=== PATIENT | female | born 1955 | race Caucasian/White ===

== ENCOUNTER 2023-12-23 15:40 | Outpatient (OUT) | payer MEDICARE, SELFPAY ==
--- NOTE | 2023-12-23 15:54 | XR_ITS ---
The [address] [address] Patient Name: RADHA REED MRN: [id number] date: 1955 Sex: F Assigned Patient Location: [facility] Current Patient Location: [facility] Accession/Order Number: [id number] Exam Date: 12/23/2023 16:05 Report Date: 12/23/2023 16:27 At the request of: ARANZA PICHARDO Procedure: XR knee ALYSSIA 4V EXAMINATION: XR knee ALYSSIA 4V HISTORY: Left Knee Pain COMPARISON: No relevant comparison available. FINDINGS: RIGHT FINDINGS: BONES: No acute fracture or dislocation. Moderate tricompartmental osteoarthropathy with moderate narrowing of the medial joint space SOFT TISSUES: Negative. No visible soft tissue swelling. OTHER: Negative. LEFT FINDINGS: BONES: No acute fracture or dislocation. Moderate tricompartmental osteoarthropathy with moderate narrowing of the medial joint space SOFT TISSUES: Negative. No visible soft tissue swelling. OTHER: Negative. XR/XR knee ALYSSIA 4V IMPRESSION: Moderate bilateral osteoarthritis with moderate medial joint space narrowing Electronically authenticated by: DEMETRIS PATEL Date: 12/23/2023 16:27
== END 2023-12-23 15:41 | disposition home or self-care (01) ==
LOC: RAD 15:45
PROVIDERS: PCP Internal Medicine; Visit Provider Internal Medicine
DX: M25.562 Pain in left knee (principal); M25.561 Pain in right knee; G89.29 Other chronic pain; M17.0 Bilateral primary osteoarthritis of knee
CPT/HCPCS: 73564

== ENCOUNTER 2024-02-23 14:11 | Outpatient (OUT) | payer MEDICARE, OTHER, SELFPAY ==
--- OUTSIDE RECORDS SUMMARY | 2024-02-23 14:22 | XMS_ITS | CCD ---
Author Organization [facility] Care Team Providers Care Wealth Management Director Name Role Phone VICTOR MANUEL, DR COBIAN Consulting Unavailable BALL, DR COBIAN Primary Care Unavailable BALL, DR COBIAN Admitting Unavailable BALL, DR COBIAN Attending Unavailable BALL, DR COBIAN Consulting Unavailable BALL, DR COBIAN Primary Care Unavailable BALL, DR COBIAN Admitting Unavailable BALL, DR COBIAN Attending Unavailable BALL, DR COBIAN Consulting Unavailable BALL, DR COBIAN Primary Care Unavailable BALL, DR COBIAN Admitting Unavailable BALL, DR COBIAN Attending Unavailable WEST, DR DEMETRIS Patel Consulting Unavailable Victor Manuel, Peter Unavailable Peter Rush DO Primary Care Provider YOLANDA STAFFORD Attending Unavailabl e VICTOR MANUEL, PETER [facility] Primary Care Unavailable YOLANDA STAFFORD Referring Unavailabl e VICTOR MANUEL, PETER [facility] Unavailable YOLANDA STAFFORD Referring Unavailabl e VICTOR MANUEL, PETER [facility] Primary Care Unavailable PETER RUSH Primary Care Physician [phone] Cristian CINTRON Attending Unavailable VICTOR MANUEL, PETER Referring Unavailable Allergies Allergy Classification Reported Allergen(s) Allergy Type Date of Onset Reaction(s) Facility (4 sources) Morphine; Translations: [MORPHINE] Drug Allergy 3 [facility] Repository (6 sources) Morphine; Translations: [morphine] Drug Allergy 3 Other: See Comments, Patient reported problems (finding) [facility] (3 sources) Latex; Translations: [LATEX] Drug Allergy 3 [facility] (1 source) patient allergy list reviewed by nurse or physicia Propensity to adverse reactions 8 Comment:Done Comr.se Other Medications Current Medications Medication Drug Class(es) Dates Sig (Normalized) Sig (Original) celecoxib 200 mg oral capsule (1 source) Nonsteroidal Anti-inflammatory Drug Start: 01-27-2024 take 1 capsule by mouth once daily celecoxib 200 mg Cap 200 mg = 1 cap(s), Oral, Daily, Refills(s) 0 Start Date: 01/27/24 Status: Ordered estradiol 0.1 mg/ml vaginal cream (7 sources) Estrogen Start: 01-06-2024 estradiol 0.1 mg/g Vag Crm 1 gm, Vaginal, MonFri, Refill(s) 0 Start Date: 01/06/24 Status: Ordered Start: 11-24-2023 End: 11-24-2023 Estradiol Active 1 GM VAGINA L Twice a Week 42.5 90 November 24, 2023 5:23pm Start: 08-31-2022 Estradiol 0.1 MG/GM 1 gram Vaginal twice weekly for 90 days Aug, Active Start: 04-11-2021 Estradiol 0.1 MG/GM 1 gram Vaginal twice weekly for 90 days Aug, Active Comment on above: Use 1 g vaginally tw o times a week. estrogens, conjugated (prison) 0.625 mg/ml vaginal cream (3 sources) Estrogen Premarin 0.625 M G/GM as directed Vaginal twice weekly for 30 days Active Premarin 0.625 M G/GM as directed Vaginal twice weekly for 30 days Active omeprazole 40 mg delayed release oral capsule (4 sources) Proton Pump Inhibitor Start: 01-06-2024 take 1 capsule by mouth once daily omeprazole 40 mg Cap-DR 40 mg = 1 cap(s), Oral, Daily, Refills(s) 0 Start Date: 01/06/24 Status: Ordered Start: 12-23-2023 take 40 mg by mouth once daily Omeprazole Active 40 MG PO Daily December 23, 2023 12:00am Start: 02-26-2013 take 1 capsule by [facility] once daily omeprazole (PRILOSEC) 10 mg capsule Indications: Mid back pain , Lumbar degenerative disc disease , Numbness and tingling in right hand , Numbness of foot , Osteoarthritis Take 1 capsule by mouth once daily. 0 02/26/2013 Active Comment on above: Take 1 capsule by [facility] once daily. polyethylene glycol 3350 513053 mg / potassium chloride 2970 mg / sodium bicarbonate 6740 mg / sodium chloride 5860 mg / sodium sulfate 57300 mg powder for oral solution (1 source) Osmotic Laxative Start: 09-25-2022 End: 09-25-2022 peg 3350-Electrolytes (GOLYTELY) 236-22.74-6.74 -5.86 gram suspension Indications: Polyp of colon, unspecified part of colon, unspecified type , Liver hemangioma Take 4,000 mL by mouth one time only for 1 dose. Refer to printed prep instructions from your provider. 4000 mL 0 09/25/2022 09/25/2022 Active Comment on above: Take 4,000 mL by kira th one time only for 1 dose. Refer to printed prep instructions from your provider. Completed/Discontinued Medications Medication Drug Class(es) Dates Sig (Normalized) Sig (Original) ascorbic acid 1000 mg oral tablet (2 sources) Vitamin C Start: 02-26-2013 take 1 tablet by mouth once daily Ascorbic Acid (VITAMIN C) 1,000 mg tablet Indications: Mid back pain , Lumbar degenerative disc disease , Numbness and tingling in right hand , Numbness of foot , Osteoarthritis Take 1 tablet by mouth once daily. 0 02/26/2013 Active Comment on above: Take 1 tablet by kira th once daily. azithromycin 250 mg oral tablet (3 sources) Macrolide Antimicrobial Start: 08-06-2022 Azithromycin 250 MG as directed Orally daily for 5 days Jul, Not-Taking/PRN Bifidobacterium Infantis (2 sources) Bifidobacterium infantis (ALIGN ORAL) Take by mouth. 0 Active Comment on above: Take by mouth. biotin 5 mg disintegrating oral tablet (2 sources) biotin 5,000 mcg ODT Take by mouth. 0 Active Comment on above: Take by mouth. cholecalciferol 0.05 mg oral tablet (2 sources) Vitamin D take 1 tablet by mouth once daily cholecalciferol (VITAMIN D3) 50 mcg (2,000 unit) tablet Take 2,000 Units by mouth once daily. 0 Active Comment on above: Take 2,000 Units by mouth once daily. ciprofloxacin 500 mg oral tablet (6 sources) Quinolone Antimicrobial Start: 09-12-2012 take 1 tablet by mouth every twelve hours Cipro 500 MG 1 tablet Orally every 12 hrs for 7 day(s) Aug, Not-Taking/PRN take 2 drop(s) into the eye(s) every four hours as needed Ciprofloxacin HCl 0.3 % 2 drops Ophthalm ic every 4 hours while awake for 7 days Not-Taking/PRN take 2 drop(s) into the eye(s) every four hours Ciprofloxacin HCl 0.3 % 2 drops Ophthalm ic every 4 hours while awake for 7 days Not-Taking cranberry conc-ascorbic acid 4,200-20 mg cap (2 sources) take 2 tablets by mouth once daily cranberry conc-ascorbic acid 4,200-20 mg cap Take 2 tablets by mouth once daily. 0 Active Comment on above: Take 2 tablets by mo ut once daily. CYANOCOBALAMIN, VITAMIN B-12, (VITAMIN B-12 ORAL) (2 sources) Start: 7 CYANOCOBALAMIN, VITAMIN B-12, (VITAMIN B-12 ORAL) Take by mouth once daily. 0 12/11/2016 Active Comment on above: Take by mouth once d aily. KRILL OIL ORAL (2 sources) take 350 mg by mouth once daily KRILL OIL ORAL Take 350 mg by mouth once daily. 0 Active Comment on above: Take 350 mg by mouth once daily. MEDICATION, NON-DATABASE (2 sources) MEDICATION, NON-DATABASE Collagen powder daily 0 Active Comment on above: Collagen powder juan antonio y MULTIVITAMIN/IRON/FOLI C ACID (CENTRUM WOMEN ORAL) (2 sources) Start: 7 MULTIVITAMIN/IRON/FOL IC ACID (CENTRUM WOMEN ORAL) Take by mouth once daily. 0 12/11/2016 Active Comment on above: Take by mouth once d aily. Problems Active Problems Problem Classification Problem Date Documented Da te Episodic/Chronic Calculus of urinary tract (7 sources) Personal history of urinary calculi; Translations: [History of calculus of kidney] Onset: 3 04-21-2013 Episodic Esophageal disorders (5 sources) Gastroesophageal reflux disease; Translations: [Gastro-esophageal reflux disease without esophagitis] Onset: 7 07-16-2016 Chronic Genitourinary symptoms and ill-defined conditions (11 sources) Dysuria; Translations: [Dysuria] Onset: 2 Episodic Immunizations and screening for infectious disease (1 source) Vaccination given; Translations: [Encounter for immunization] Episodic Intestinal infection (4 sources) Salmonella gastroenteritis; Translations: [Salmonella enteritis] Episodic Joint disorders and dislocations; trauma-related (1 source) Current tear of medial cartilage AND/OR meniscus of knee; Translations: [Other tear of medial meniscus, current injury, right knee, initial encounter] Episodic Menopausal disorders (5 sources) Atrophic vaginitis; Translations: [Postmenopausal atrophic vaginitis] Chronic Osteoarthritis (2 sources) Inflammation of joint of foot; Translations: [Primary osteoarthritis, unspecified ankle and foot] Onset: 7 07-03-2016 Chronic Other and unspecified benign neoplasm (7 sources) Hemangioma of intra-abdominal structures; Translations: [Cavernous hemangioma of liver] Onset: 3 Episodic Other and unspecified benign neoplasm (2 sources) Polyp of colon; Translations: [Polyp of colon] Episodic Other and unspecified benign neoplasm (5 sources) Hemangioma of liver; Translations: [Hemangioma of intra-abdominal structures] Onset: 4 Episodic Other and unspecified benign neoplasm (1 source) Polyp of colon; Translations: [Polyp of colon, unspecified part of colon, unspecified type] Onset: 3 Episodic Other and unspecified benign neoplasm (1 source) Hemangioma of intra-abdominal structure; Translations: [Hemangioma of intra-abdominal structures] Episodic Other gastrointestinal disorders (4 sources) Diarrhea; Translations: [Diarrhea, unspecified] Episodic Other non-traumatic joint disorders (1 source) Arthralgia of the lower leg; Translations: [Pain in right knee] Episodic Other non-traumatic joint disorders (2 sources) Pain in left knee; Translations: [Left knee pain] 12-23-2023 Episodic Other non-traumatic joint disorders (1 source) Pain in right knee; Translations: [Pain in joint, lower leg] 12-23-2023 Episodic Other nutritional; endocrine; and metabolic disorders (5 sources) Body mass index 30+ - obesity; Translations: [Obesity, unspecified] Onset: 6 01-27-2024 Chronic Other nutritional; endocrine; and metabolic disorders (2 sources) Obesity, unspecified; Translations: [Obesity, unspecified] Chronic Other nutritional; endocrine; and metabolic disorders (2 sources) Obese class I; Translations: [Body mass index 32.0-32.9, adult] Onset: 6 Chronic Other nutritional; endocrine; and metabolic disorders (2 sources) Obesity; Translations: [Obesity, unspecified] 12-23-2023 Chronic Other nutritional; endocrine; and metabolic disorders (1 source) Simple obesity ; Translations: [Other obesity due to excess calories] Onset: 6 Chronic Other nutritional; endocrine; and metabolic disorders (1 source) Obese class III 01-06-2024 Chronic Other screening for suspected conditions (not mental disorders or infectious disease) (4 sources) Patient encounter status; Translations: [Encounter for screening for malignant neoplasm of colon] Onset: 4 12-23-2023 Episodic Residual codes; unclassified (4 sources) Menopause present; Translations: [Asymptomatic menopausal state] 12-21-2023 Episodic Residual codes; unclassified (3 sources) Asymptomatic menopausal state; Translations: [Symptomatic menopausal or female climacteric states] Episodic Residual codes; unclassified (1 source) Procedure and treatment not carried out because of patient's decision for unspecified reasons Episodic Spondylosis; intervertebral disc disorders; other back problems (9 sources) Dorsalgia, unspecified; Translations: [Spinal stenosis of lumbar region] Onset: 4 Episodic Sprains and strains (1 source) Sprain of medial collateral ligament of knee; Translations: [Sprain of medial collateral ligament of unspecified knee, initial encounter] Episodic Unclassified (1 source) Patient encounter status 01-27-2024 Urinary tract infections (5 sources) Urinary tract infectious disease; Translations: [Urinary tract infection] Onset: 3 04-19-2013 Episodic Past or Other Problems Problem Classification Problem Date Documented Da te Episodic/Chronic Abdominal pain (2 sources) Abdominal pain; Translations: [Unspecified abdominal pain] Onset: 07-15-2013 07-15-2013 Episodic Acute bronchitis (1 source) Acute bronchitis; Translations: [Acute bronchitis, unspecified] Onset: 01-11-2015 Episodic Diseases of mouth; excluding dental (1 source) Glossitis; Translations: [Glossitis] Onset: 01-11-2015 Episodic Other diseases of bladder and urethra (2 sources) Stenosis of urinary meatus; 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] Onset: 04-19-2013 04-19-2013 Episodic Other diseases of kidney and ureters (2 sources) Bilateral hydronephrosis ; Translations: [Unspecified hydronephrosis] Onset: 04-07-2013 04-07-2013 Episodic Other ear and sense organ disorders (1 source) Impacted cerumen; Translations: [Impacted cerumen] Onset: 12-19-2017 Resolved: 04-04-2020 Episodic Other gastrointestinal disorders (4 sources) Diarrhea, unspecified; Translations: [DIARRHEA UNSPECIFIED] Onset: 02-20-2021 Episodic Other upper respiratory infections (2 sources) Acute maxillary sinusitis; Translations: [Acute maxillary sinusitis, unspecified] Onset: 01-11-2015 Episodic Otitis media and related conditions (1 source) Eustachian tube salpingitis; Translations: [Unspecified Eustachian salpingitis, bilateral] Onset: 12-19-2017 Episodic Results Test Name Value Interpretation Reference Range Facil ity CBC W Auto Differential pane l (Bld)on 09-26-2022 Basophils (Bld) [#/Vol] 0.04 10*3/uL Normal <0.11 [facility] Comment on above: Order Comment: Speci gentry Type: BLOOD SPECIMEN Ordering Facility: [facility] Address: [address] [address] Performed By: #### 5 7021-8 #### [facility] CLIA [id number] [address] [place] [address] [place] Basophils/100 WBC (Bld) 0.7 % Normal [facility] Comment on above: Order Comment: Speci gentry Type: BLOOD SPECIMEN Ordering Facility: [facility] Address: [address] [place] [address] Performed By: #### 5 7021-8 #### [facility] CLIA [id number] [place] [address] [place] Differential cell count method Nom (Bld) Auto Normal [facility] Comment on above: Order Comment: Speci men Type: BLOOD SPECIMEN Ordering Facility: [facility] Address: [address] [address] Performed By: #### 5 7021-8 #### [facility] CLIA [id number] [place] [address] [place] Eosinophils (Bld) [#/Vol] 0.04 10*3/uL Normal <0.46 [facility] Comment on above: Order Comment: Speci men Type: BLOOD SPECIMEN Ordering Facility: [facility] Address: [address] [place], [place] [address] Performed By: #### 5 7021-8 #### [facility] IA [id number] [address] [place] [address] [place] Eosinophils/100 WBC (Bld) 0.7 % Normal [facility] Comment on above: Order Comment: Speci men Type: BLOOD SPECIMEN Ordering Facility: [facility] Address: [address] [address] Performed By: #### 5 7021-8 #### [facility] IA [id number] [address] [place] [address] [place] Erythrocyte distribution width (RBC) [Ratio] 12.2 % Normal 11.5-15.0 [facility] Comment on above: Order Comment: Speci men Type: BLOOD SPECIMEN Ordering Facility: [facility] Address: [address] [address] Performed By: #### 5 7021-8 #### [facility] IA [id number] [address] [place] [address] [place] Hematocrit (Bld) [Volume fraction] 43.6 % Normal 36.0-46.0 [facility] Comment on above: Order Comment: Speci men Type: BLOOD SPECIMEN Ordering Facility: [facility] Address: [address] [address] Performed By: #### 5 7021-8 #### [facility] IA [id number] [address] [place] [address] [place] Hemoglobin (Bld) [Mass/Vol] 14.4 g/dL Normal 11.5-15.5 [facility] Comment on above: Order Comment: Speci men Type: BLOOD SPECIMEN Ordering Facility: [facility] Address: [address] [address] Performed By: #### 5 7021-8 #### [facility] IA [id number] [place] [address] [place] Immature granulocytes (Bld) [#/Vol] 10*3/uL Normal <0.10 [facility] Comment on above: Order Comment: Speci men Type: BLOOD SPECIMEN Ordering Facility: [facility] Address: [address] [address] Performed By: #### 5 7021-8 #### [facility] CLIA [id number] [address] [place] [address] [place] Immature granulocytes/100 WBC (Bld) 0.3 % Normal [facility] Comment on above: Order Comment: Speci men Type: BLOOD SPECIMEN Ordering Facility: [facility] Address: [address] [address] Performed By: #### 5 7021-8 #### [facility] IA [id number] [address] [place] [address] [place] Lymphocytes (Bld) [#/Vol] 1.48 10*3/uL Normal 1.00-4.00 [facility] Comment on above: Order Comment: Speci men Type: BLOOD SPECIMEN Ordering Facility: [facility] Address: [address] [address] Performed By: #### 5 7021-8 #### [facility] IA [id number] [address] [place] [address] [place] Lymphocytes/100 WBC (Bld) 25.8 % Normal [facility] Comment on above: Order Comment: Speci men Type: BLOOD SPECIMEN Ordering Facility: [facility] Address: [address] [address] Performed By: #### 5 7021-8 #### [facility] IA [id number] [address] [place] [address] [place] MCH (RBC) [Entitic mass] 30.5 pg Normal 26.0-34.0 [facility] Comment on above: Order Comment: Speci men Type: BLOOD SPECIMEN Ordering Facility: [facility] Address: [address] [address] Performed By: #### 5 7021-8 #### [facility] IA [id number] [place] [address] [place] MCHC (RBC) [Mass/Vol] 33.0 g/dL Normal 30.5-36.0 [facility] Comment on above: Order Comment: Speci men Type: BLOOD SPECIMEN Ordering Facility: [facility] Address: [address] [address] Performed By: #### 5 7021-8 #### [facility] CLIA [id number] [address] [place] [address] [place] MCV (RBC) [Entitic vol] 92.4 fL Normal 80.0-100.0 [facility] Comment on above: Order Comment: Speci men Type: BLOOD SPECIMEN Ordering Facility: [facility] Address: [address] [address] Performed By: #### 5 7021-8 #### [facility] CLIA [id number] [address] [place] [address] [place] Monocytes (Bld) [#/Vol] 0.55 10*3/uL Normal <0.87 [facility] Comment on above: Order Comment: Speci men Type: BLOOD SPECIMEN Ordering Facility: [facility] Address: [address] [address] Performed By: #### 5 7021-8 #### [facility] CLIA [id number] [place] [address] [place] Monocytes/100 WBC (Bld) 9.6 % Normal [facility] Comment on above: Order Comment: Speci men Type: BLOOD SPECIMEN Ordering Facility: [facility] Address: [address] Performed By: #### 5 7021-8 #### [facility] CLIA [id number] [address] [place] [address] [place] Neutrophils (Bld) [#/Vol] 3.61 10*3/uL Normal 1.45-7.50 [facility] Comment on above: Order Comment: Speci men Type: BLOOD SPECIMEN Ordering Facility: [facility] Address: [address] [address] Performed By: #### 5 7021-8 #### [facility] IA [id number] [address] [place] [address] [place] Neutrophils/100 WBC (Bld) 62.9 % Normal [facility] Comment on above: Order Comment: Speci men Type: BLOOD SPECIMEN Ordering Facility: [facility] Address: [address] [address] Performed By: #### 5 7021-8 #### [facility] IA [id number] [address] [place] [address] [place] Nucleated RBC (Bld) [#/Vol] 10*3/uL Normal <0.01 [facility] Comment on above: Order Comment: Speci men Type: BLOOD SPECIMEN Ordering Facility: [facility] Address: [address] [address] Performed By: #### 5 7021-8 #### [facility] IA [id number] [address] [place] [address] [place] Nucleated RBC/100 WBC (Bld) [Ratio] 0.0 /100 WBC Normal [facility] Comment on above: Order Comment: Speci men Type: BLOOD SPECIMEN Ordering Facility: [facility] Address: [address] [address] Performed By: #### 5 7021-8 #### [facility] IA [id number] [address] [place] [address] [place] Platelet mean volume (Bld) [Entitic vol] 9.2 fL Normal 9.0-12.7 [facility] Comment on above: Order Comment: Speci men Type: BLOOD SPECIMEN Ordering Facility: [facility] Address: [address] [address] Performed By: #### 5 7021-8 #### [facility] IA [id number] [place] [address] [place] Platelets (Bld) [#/Vol] 267 10*3/uL Normal 150-400 [facility] Comment on above: Order Comment: Speci men Type: BLOOD SPECIMEN Ordering Facility: [facility] Address: [address] Performed By: #### 5 7021-8 #### [facility] IA [id number] [address] [place] [address] [facility] RBC (Bld) [#/Vol] 4.72 10*6/uL Normal 3.90-5.20 [facility] Comment on above: Order Comment: Speci men Type: BLOOD SPECIMEN Ordering Facility: [facility] Address: [address] Performed By: #### 5 7021-8 #### [facility] IA [id number] [place] WBC (Bld) [#/Vol] 5.74 10*3/uL Normal 3.70-11.00 [facility] Comment on above: Order Comment: Speci men Type: BLOOD SPECIMEN Ordering Facility: [facility] Address: [address] Performed By: #### 5 7021-8 #### [facility] IA [id number] [address] [place], [place] [id number] [place] [address] [place] Comprehensive metabolic 2000 panelon 09-26-2022 Albumin [Mass/Vol] 4.6 g/dL Normal 3.9-4.9 [facility] Comment on above: Order Comment: Speci men Type: BLOOD SPECIMEN Ordering Facility: [facility] Address: [address] Performed By: #### 2 4323-8 #### [facility] IA [id number] [address] [place] [address] [place] ALP [Catalytic activity/Vol] 89 U/L Normal 34-123 [facility] Comment on above: Order Comment: Speci men Type: BLOOD SPECIMEN Ordering Facility: [facility] Address: [address] Performed By: #### 2 4323-8 #### [facility] IA [id number] [address] [place] [address] [place] ALT [Catalytic activity/Vol] 28 U/L Normal 7-38 [facility] Comment on above: Order Comment: Speci men Type: BLOOD SPECIMEN Ordering Facility: [facility] Address: [address] [address] Performed By: #### 2 4323-8 #### [facility] CLIA [id number] [address] [place] [address] [place] Anion gap [Moles/Vol] 9 mmol/L Normal 9-18 [facility] Comment on above: Order Comment: Speci men Type: BLOOD SPECIMEN Ordering Facility: [facility] Address: [address] [address] Performed By: #### 2 4323-8 #### [facility] CLIA [id number] [address] [place] [address] [place] AST [Catalytic activity/Vol] 21 U/L Normal 13-35 [facility] Comment on above: Order Comment: Speci men Type: BLOOD SPECIMEN Ordering Facility: [facility] Address: [address] [address] Performed By: #### 2 4323-8 #### [facility] CLIA [id number] [place] [address] [place] Bilirubin [Mass/Vol] 0.5 mg/dL Normal 0.2-1.3 [facility] Comment on above: Order Comment: Speci men Type: BLOOD SPECIMEN Ordering Facility: [facility] Address: [address] Performed By: #### 2 4323-8 #### [facility] CLIA [id number] [address] [place] [address] [place] Calcium [Mass/Vol] 9.7 mg/dL Normal 8.5-10.2 [facility] Comment on above: Order Comment: Speci men Type: BLOOD SPECIMEN Ordering Facility: [facility] Address: [address] [address] Performed By: #### 2 4323-8 #### [facility] CLIA [id number] [place] [address] [place] Chloride [Moles/Vol] 104 mmol/L Normal 97-105 [facility] Comment on above: Order Comment: Speci men Type: BLOOD SPECIMEN Ordering Facility: [facility] Address: [address] [address] Performed By: #### 2 4323-8 #### [facility] CLIA [id number] [place] [address] [place] CO2 [Moles/Vol] 29 mmol/L Normal 22-30 [facility] Comment on above: Order Comment: Speci men Type: BLOOD SPECIMEN Ordering Facility: [facility] Address: [address] [address] Performed By: #### 2 4323-8 #### [facility] CLIA [id number] [place] Creatinine [Mass/Vol] 0.68 mg/dL Normal 0.58-0.96 [facility] Comment on above: Order Comment: Speci men Type: BLOOD SPECIMEN Ordering Facility: [facility] Address: [address] [address] Performed By: #### 2 4323-8 #### [facility] CLIA [id number] [place] ESTIMATED GLOMERULAR FILTRATION RATE 97 mL/min/1.73m??? Normal >=60 [facility] Comment on above: Order Comment: Speci men Type: BLOOD SPECIMEN Ordering Facility: [facility] Address: [address] [address] Result Comment: Barbara mated Glomerular Filtration Rate (eGFR) is calculated using the 2020 CKD-EPI creatinine equation. This equation utilizes serum creatinine, sex, and age as parameters. The creatinine assay has traceable calibration to isotope dilution-mass spectrometry. Refer to KDIGO guidelines for clinical interpretation. In patients with unstable renal function, e.g. those with acute kidney injury, the eGFR may not accurately reflect actual GFR. Performed By: #### 2 4323-8 #### [facility] [place] [id number] [address] [place] [address] [place] Glucose [Mass/Vol] 98 mg/dL Normal 74-99 [facility] Comment on above: Order Comment: Vineet rinaldi Type: BLOOD SPECIMEN Ordering Facility: [facility] Address: [address] [place] [address] Result Comment: The [place] Diabetes Association (ADA) provides guidance for cutoff values for fasting glucose and random glucose. The ADA defines fasting as no caloric intake for at least 8 hours. Fasting plasma glucose results between 100 to 125 mg/dL indicate increased risk for diabetes (prediabetes). Fasting plasma glucose results greater than or equal to 126 mg/dL meet the criteria for diagnosis of diabetes. In the absence of unequivocal hyperglycemia, results should be confirmed by repeat testing. In a patient with classic symptoms of hyperglycemia or hyperglycemic crisis, random plasma glucose results greater than or equal to 200 mg/dL meet the criteria for diagnosis of diabetes. Reference: Standards of Medical Care in Diabetes 2016, [place] Diabetes Association. Diabetes Care. 2016.39(Suppl 1). Performed By: #### 2 4323-8 #### [facility] IA [id number] [address] [place] [address] [place] Potassium [Moles/Vol] 4.6 mmol/L Normal 3.7-5.1 [facility] Comment on above: Order Comment: Vineet rinaldi Type: BLOOD SPECIMEN Ordering Facility: [facility] Address: [address] [place] [address] Performed By: #### 2 4323-8 #### [facility] IA [id number] [address] [place] [address] [place] Protein [Mass/Vol] 7.4 g/dL Normal 6.3-8.0 [facility] Comment on above: Order Comment: Vineet rinaldi Type: BLOOD SPECIMEN Ordering Facility: [facility] Address: [address] [place] [address] Performed By: #### 2 4323-8 #### [facility] IA [id number] [address] [place] [address] [place] Sodium [Moles/Vol] 142 mmol/L Normal 136-144 [facility] Comment on above: Order Comment: Speci men Type: BLOOD SPECIMEN Ordering Facility: [facility] Address: [place] [address] Performed By: #### 2 4323-8 #### [facility] CLIA [id number] [address] [place] [address] [facility] Urea nitrogen [Mass/Vol] 17 mg/dL Normal 7-21 [facility] Comment on above: Order Comment: Speci men Type: BLOOD SPECIMEN Ordering Facility: [facility] Address: [place] [address] Performed By: #### 2 4323-8 #### [facility] CLIA [id number] [address] [facility] [place] [address] [facility] No Panel Informationon 09-26 [facility] US ABD RIGHT UPPER QUADRANTo n 09-26-2022 US ABD RIGHT UPPER QUADRANT * * *Final Report* * * DATE OF EXAM: Sep 26 2022 1:18PM U 1032 - US ABD RIGHT UPPER QUADRANT / PROCEDURE REASON: multiple diagnoses * * * * Physician Interpretation * * * * EXAMINATION: RIGHT UPPER QUADRANT AND SPLEEN ULTRASOUND CLINICAL HISTORY: Hemangiomas TECHNIQUE: Sonography of the right upper quadrant was performed. Images were obtained and stored in a permanent archive. MQ: URUQ_2 COMPARISON: 05/31/2015 RESULT: Pancreas: Obscured by bowel gas Liver: Echotexture: Normal, homogeneous. Echogenicity: Increased Surface contour: Smooth Lesions: Heterogeneous appearance of the hepatic parenchyma with likely mass lesion in the right lobe measuring 2.1 x 2.1 x 2.1 cm. This is likely stable. A second mass measuring 1.9 cm is also suggested. Biliary: No intrahepatic biliary duct dilation. CBD: 0.7 cm at the hilum. Gallbladder: Prior cholecystectomy Right Kidney: No hydronephrosis. Ascites: None. The left kidney measures 11.7 cm in length. The spleen measures 10.7 cm. IMPRESSION: Heterogeneous appearance of the liver with hepatic steatosis and underlying mass lesions noted. Based on relative stability since 2015 is are likely benign and could represent the previously described hemangiomas. Coat Joiner: ERIKA Transcribe Date/Time: Oct 03 2022 6:03A Dictated by : NAS DENSON MD This examination was interpreted and the report reviewed and electronically signed by: NAS DENSON MD on Oct 03 2022 6:08AM EST [id number] N [facility] US ABD SPLEEN -NBon 09-27-19 US ABD SPLEEN -NB * * *Final Report* * * DATE OF EXAM: Sep 26 2022 1:18PM U 1232 - US ABD SPLEEN -NB / PROCEDURE REASON: multiple diagnoses * * * * Physician Interpretation * * * * EXAMINATION: RIGHT UPPER QUADRANT AND SPLEEN ULTRASOUND CLINICAL HISTORY: Hemangiomas TECHNIQUE: Sonography of the right upper quadrant was performed. Images were obtained and stored in a permanent archive. MQ: URUQ_2 COMPARISON: 05/31/2015 RESULT: Pancreas: Obscured by bowel gas Liver: Echotexture: Normal, homogeneous. Echogenicity: Increased Surface contour: Smooth Lesions: Heterogeneous appearance of the hepatic parenchyma with likely mass lesion in the right lobe measuring 2.1 x 2.1 x 2.1 cm. This is likely stable. A second mass measuring 1.9 cm is also suggested. Biliary: No intrahepatic biliary duct dilation. CBD: 0.7 cm at the hilum. Gallbladder: Prior cholecystectomy Right Kidney: No hydronephrosis. Ascites: None. The left kidney measures 11.7 cm in length. The spleen measures 10.7 cm. IMPRESSION: Heterogeneous appearance of the liver with hepatic steatosis and underlying mass lesions noted. Based on relative stability since 2015 is are likely benign and could represent the previously described hemangiomas. Coat Joiner: [facility] Transcribe Date/Time: Oct 03 2022 6:03A Dictated by : NAS DENSON MD This examination was interpreted and the report reviewed and electronically signed by: NAS DENSON MD on Oct 03 2022 6:08AM EST [id number] N [facility] CNOVon 09-25-2022 CNOV Office Visit (GASTAV ) BRIANNABETTINA ([id number]) 1955 F Date Time Provider Department 09/25/22 1:30 PM YOLANDA STAFFORD During your visit today, we recorded the following information about you: Weight Height 100.7 kg 1.676 m Yolanda Ta MD 09/25/2022 2:21 PM [facility] Rush for liver lesions This is a 67 yo female s/p laparoscopic left lateral segmentectomy 08/24/2013 for symptomatic liver hemangioma. MRI 04/2013: 1. 5.7 x 7.1 cm partially exophytic lesion arising from superior, lateral aspect of segment I (series 11 image 48) 2. 2.5 x 3.4 cm lesion in segment VII (series 11 image 39) 3. 1.1 x 1.4 cm lesion in segment V series 11 image 74) was discussed at tumor board 06/2013 : 58-year-old female with abdominal bloating, discomfort and right upper quadrant pain. MRI from 05/03/13 was reviewed, with 3 hemangiomas, the largest one being exophytic, measuring 5.7 cm, arising from segment I, and compressing the stomach. PLAN: Resection. she had RUQ pain at that time she did have 3 liver hemangiomas , so the 2 others remain behind and she is wondering whether she should remove them no other sx PAST SURGICAL HISTORY Procedure Laterality Date CHOLECYSTECTOMY EXCISION HEPATIC HEMANGIOMA HYSTERECTOMY HX PAST SURGICAL HISTORY OF 05/03/2015 lumbar laminectomy PAST SURGICAL HISTORY OF Bilateral foot surgery (neuroma removed from left foot and high arch correction from right foot) GENERAL REVIEW OF SYSTEMS: GENERAL: No unexplained weight changes or fevers. HEENT: Negative for severe headaches, negative for changes in hearing or vision. NECK: Negative for lumps, masses or pain. RESPIRATORY: Negative for coughing, wheezing or significant dyspnea. CARDIOVASCULAR: Negative for chest pain or heart palpitations. GASTROINTESTINAL: Negative for rectal bleeding or black tarry stools. GENITOURINARY: Negative for dysuria or urinary incontinence. MUSCULOSKELETAL: Negative for unexplained joint pains, dislocations or fractures. NEUROLOGIC: Negative for unexplained weakness or vertigo. SKIN: Negative for new lesions or rashes. ENDOCRINE: Negative for cold or heat intolerance . PAST MEDICAL HISTORY Diagnosis Date Back pain GERD (gastroesophageal reflux disease) Nephrolithiasis Personal history of unspecified urinary disorder UTI (urinary tract infection) o/e: Ht 167.6 cm (5' 6 ) Wt 100.7 kg (222 lb) BMI 35.83 kg/m? General: well appearing no distress HEENT negative no icterus Lungs CTA jomar COR rrm- Abdomen benign she had a CT abd 03/2022:w and wo C dome lesion 2.5cm and r lobe 2.0 cm plan liver hemangiomas sp resection of one in 2013 the oher 2 appear stable and not causing issues will obtain lLFT today and liver US needs a colonoscopy, ordered to be done by me Thank you for your referral. Please feel free to contact me if I can be of further assistance to you Sincerely MD Yolanda Walters MD cc dr Victor Manuel Ta MD 09/25/2022 2:17 PM Addendum Nice to see you today Bettina: Will obtain labs today liver US colonoscopy with me next available Bowel Preparation Instructions for: Golytely, Nulytely, Trilyte or Colyte (polyethylene glycol 3350 and electrolytes) IF YOU DO NOT FOLLOW THESE DIRECTIONS, YOUR COLONOSCOPY WILL BE CANCELLED. Kerr Instructions: Your bowel must be empty so that your doctor can clearly view your colon. Follow all of the instructions in this handout EXACTLY as they are written. Do NOT eat any solid food the ENTIRE day before your colonoscopy. Drink only clear liquids. Buy your bowel preparation at least 5 days before your colonoscopy. TRANSPORTATION on the Day of Your Exam A responsible person MUST be present with you at Check In prior to your colonoscopy and REMAIN in the endoscopy area until you are discharged. You are NOT ALLOWED to drive, take a taxi or bus, or leave the Endoscopy Center ALONE. If you do not have a responsible entry level truck driver (family member or friend) with you to take you home, your exam cannot be done with sedation and will be cancelled. Please bring a list of all of your current medications, including any Over-the Counter medications with you. Medications If you take insulin, diabetic medications or blood thinners such as Coumadin (warfarin), Plavix (clopidogrel), Ticlid (ticlopidine hydrochloride), Agrylin (anagrelide), Xarelto (Rivaroxaban), Pradaxa (Dabigatran), Eliquis (Apixaban), and Effient (Prasugrel). You MUST call the doctors who orders those medicines for instructions on altering the dosage before your colonoscopy. All other medications should be taken the day of the exam with a sip of water including ASPIRIN. Five (5) Days Before Your Colonoscopy Do NOT take medicines that stop diarrhea - such as Imodium, Ka (more content not included)... Normal [facility] HISTORY PHYSICALon HISTORY PHYSICAL HNO ID: [id number] Author: Yolanda Gutierrez MD Service: ? Author Type: Physician Type: HANDP Filed: 09/25/2022 2:21 PM Note Text: Hepatology [facility] HPI consult by Dr Rush for liver lesions This is a 67 yo female s/p laparoscopic left lateral segmentectomy 08/24/2013 for symptomatic liver hemangioma. MRI 04/2013: 1. 5.7 x 7.1 cm partially exophytic lesion arising from superior, lateral aspect of segment I (series 11 image 48) 2. 2.5 x 3.4 cm lesion in segment VII (series 11 image 39) 3. 1.1 x 1.4 cm lesion in segment V series 11 image 74) was discussed at tumor board 06/2013 : 58-year-old female with abdominal bloating, discomfort and right upper quadrant pain. MRI from 05/03/13 was reviewed, with 3 hemangiomas, the largest one being exophytic, measuring 5.7 cm, arising from segment I, and compressing the stomach. PLAN: Resection. she had RUQ pain at that time she did have 3 liver hemangiomas , so the 2 others remain behind and she is wondering whether she should remove them no other sx PAST SURGICAL HISTORY Procedure Laterality Date CHOLECYSTECTOMY EXCISION HEPATIC HEMANGIOMA HYSTERECTOMY HX PAST SURGICAL HISTORY OF 05/03/2015 lumbar laminectomy PAST SURGICAL HISTORY OF Bilateral foot surgery (neuroma removed from left foot and high arch correction from right foot) GENERAL REVIEW OF SYSTEMS: GENERAL: No unexplained weight changes or fevers. HEENT: Negative for severe headaches, negative for changes in hearing or vision. NECK: Negative for lumps, masses or pain. RESPIRATORY: Negative for coughing, wheezing or significant dyspnea. CARDIOVASCULAR: Negative for chest pain or heart palpitations. GASTROINTESTINAL: Negative for rectal bleeding or black tarry stools. GENITOURINARY: Negative for dysuria or urinary incontinence. MUSCULOSKELETAL: Negative for unexplained joint pains, dislocations or fractures. NEUROLOGIC: Negative for unexplained weakness or vertigo. SKIN: Negative for new lesions or rashes. ENDOCRINE: Negative for cold or heat intolerance . PAST MEDICAL HISTORY Diagnosis Date Back pain GERD (gastroesophageal reflux disease) Nephrolithiasis Personal history of unspecified urinary disorder UTI (urinary tract infection) o/e: Ht 167.6 cm (5' 6 ) Wt 100.7 kg (222 lb) BMI 35.83 kg/m? General: well appearing no distress HEENT negative no icterus Lungs CTA jomar COR rrm- Abdomen benign she had a CT abd 03/2022:w and wo C dome lesion 2.5cm and r lobe 2.0 cm plan liver hemangiomas sp resection of one in 2013 the oher 2 appear stable and not causing issues will obtain lLFT today and liver US needs a colonoscopy, ordered to be done by me Thank you for your referral. Please feel free to contact me if I can be of further assistance to you Sincerely MD Yolanda Walters MD cc dr Rush Normal [facility] CULTURE URINEon 01-11-2022 CULTURE URINE Culture Observations : MODERATE GROWTH OF MIXED GENITAL JESUS. NO POTENTIAL PATHOGENS SEEN. Normal [facility] Comment on above: Performed By: #### U RCX #### [facility] [address] [address] [address] Na Gonzales UA RANDOM W/MICROSCOPICon BACTERIA NONE SEEN Normal NONE SEEN [facility] Comment on above: Performed By: #### U AMIC #### [facility] [address] [address] [address] Na Gonzales Bilirubin Ql (U) Negative Normal NEGATIVE [facility] Comment on above: Performed By: #### U AMIC #### [facility] [address] [address] [address] Na Gonzales CAST NONE SEEN Normal NONE SEEN [facility] Comment on above: Performed By: #### U AMIC #### [facility] [address] [address] [address] Na Gonzales Clarity (U) CLEAR Normal CLEAR [facility] Comment on above: Performed By: #### U AMIC #### [facility] [address] [address] [address] Na Gonzales Color (U) LT. YELLOW Normal YELLOW [facility] Comment on above: Performed By: #### U AMIC #### [facility] [address] [address] [address] Na Gonzales Crystals LM Nom (Urine sed) NONE SEEN Normal NONE SEEN [facility] Comment on above: Performed By: #### U AMIC #### [facility] [address] [place] [address] Dr. Na Gonzales Epithelial cells LM Ql (Urine sed) NONE SEEN Normal NONE SEEN /RARE [facility] Comment on above: Performed By: #### U AMIC #### [facility] [address] [place] [address] Dr. Na Gonzales Glucose Ql (U) Negative Normal NEGATIVE [facility] Comment on above: Performed By: #### U AMIC #### [facility] [address] [place] [address] Dr. Na Gonzales Hemoglobin Ql (U) Negative Normal NEGATIVE [facility] Comment on above: Performed By: #### U AMIC #### [facility] [address] [place] [address] Dr. Na Gonzales Ketones Ql (U) Negative Normal NEGATIVE [facility] Comment on above: Performed By: #### U AMIC #### [facility] [address] [place] [address] Dr. Na Gonzales LEUKOCYTES SMALL Abnormal NEGATIVE [facility] Comment on above: Performed By: #### U AMIC #### [facility] [address] [place] [address] Dr. Na Gonzales MUCOUS NONE SEEN Normal NONE SEEN [facility] Comment on above: Performed By: #### U AMIC #### [facility] [address] [place] [address] Dr. Na Gonzales Nitrite Ql (U) Negative Normal NEGATIVE [facility] Comment on above: Performed By: #### U AMIC #### [facility] [address] [place] [address] Dr. Na Gonzales pH (U) 6.0 [pH] Normal 5-9 [facility] Comment on above: Performed By: #### U AMIC #### [facility] [address] [place] [address] Dr. Na Gonzales RBC NONE SEEN Abnormal 0-2 [facility] Comment on above: Performed By: #### U AMIC #### [facility] [address] [place] [address] Dr. Na Gonzales SPEC GRAVITY 1.005 Normal 1.005-<=1.025 [facility] Comment on above: Performed By: #### U AMIC #### [facility] [address] [place] [address] Dr. Na Gonzales UA PROTEIN Negative Normal NEGATIVE/ TRACE [facility] Comment on above: Performed By: #### U AMIC #### [facility] [address] [place] [address] Dr. Na Gonzales Urobilinogen Qn (U) 0.2 {Irene'U}/dL Normal 0.2 - 1. 0 [facility] Comment on above: Performed By: #### U AMIC #### [facility] [address] [place] [address] Dr. Na Gonzales WBC 0-2 Abnormal NONE SEEN [facility] Comment on above: Performed By: #### U AMIC #### [facility] [address] [place] [address] ABD/PELVIS WO CONon 04-06 CT ABD/PELVIS WO CON EXAMINATION: CT ABD/PELVIS WO CON, 04/06/2021 8:25 AM EST HISTORY: Pain in thoracic spine , history of nephrolithiasis, urinary tract infection, low back pain COMPARISON: None. TECHNIQUE: CT scan of the abdomen and pelvis was performed without IV contrast. CT dose reduction technique was used, including Automated Exposure Control. FINDINGS: LUNG BASES: No visible pulmonary or pleural disease. LIVER: Multiple areas of hypoattenuation the largest in the posterior right hepatic dome measuring 2.5 cm axial image #15 with a second lesion inferior right hepatic lobe measuring 2.0 cm, axial image 44 suture line along the left lobe BILIARY: Surgical clips from cholecystectomy PANCREAS: No lesion, fluid collection, ductal dilatation, or atrophy. SPLEEN: No enlargement or focal lesion. ADRENALS: No mass or enlargement. KIDNEYS: No mass, obstruction, or calcification. BOWEL/MESENTERY: No visible mass, obstruction, or bowel wall thickening. 7 mm distal appendicolith. No inflammatory changes of the appendix AORTA/VASCULAR: No aortic aneurysm. Mild atherosclerosis. RETROPERITONEUM: No mass or adenopathy. LYMPH NODES: No adenopathy. URINARY BLADDER: No visible focal wall thickening, lesion, or calculus. PELVIC ORGANS: Hysterectomy ABDOMINAL WALL: No mass or hernia. BONES: No bony lesion or fracture. OTHER: Negative. IMPRESSION: 2 focal hypodensities in the liver, indeterminate. Multiphasic CT or MRI is recommended for further evaluation No obstructive uropathy Electronically authenticated by: DEMETRIS PATEL Date: 2021-04-06 18:26 Normal [facility] CULTURE STOOLon 02-22-2021 CULTURE STOOL Culture Observations : SALMONELLA CALD TO EDNA FELIX LPN@1225//RK Culture Observations: [facility]30/02/21/21/R K Culture Observations: SENDING ISOLATE TO [facility] Isolate 1 Salmonella enterica ssp enterica Heavy growth of ORGANISM 1 Salmonella enterica ssp enterica ANTIBIOTIC M.I.C RX STATUS Ampicillin <=2 S F Ceftazidime <=1 S F Ceftriaxone <=1 S F Ciprofloxacin <=0.25 S F Levofloxacin <=0.12 S F Trimethoprim/Sulfamet hoxazole <=20 S F Normal [facility] Comment on above: Performed By: #### S TOOLCX #### [facility] [address] [place] [address] Dr. Na Gonzales CLOSTRIDIUM DIFFICILE PCRon 02-21-2021 C difficile Toxin Gene SHADI Negative Normal Negative [facility] Comment on above: Performed By: #### C DIFNAA #### [facility] [address] [place] [address] Dr. Na Gonzales Vital Signs Date Time Vital Sign Value Performing Clinician Facility 01-27-2024 15:15-0400 Blood Pressure Location Cristian NILL [facility] 01-27-2024 15:15-0400 Diastolic blood pressure 82 mm[Hg] Cristian NILL [facility] 01-27-2024 15:15-0400 Heart rate 76 /min Cristian NILL [facility] 01-27-2024 15:15-0400 Respiratory rate 16 /min Cristian NILL [facility] 01-27-2024 15:15-0400 Systolic blood pressure 120 mm[Hg] Cristian NILL [facility] 12-23-2023 14:36-0400 Body height 167.64 cm [facility] 12-23-2023 14:36-0400 Body mass index (BMI) [Ratio] 35.2 kg/m2 [facility] 12-23-2023 14:36-0400 Body weight 98.93 kg [facility] 12-23-2023 14:36-0400 Diastolic blood pressure 86 mm[Hg] [facility] 12-23-2023 14:36-0400 Heart rate 98 /min [facility] 12-23-2023 14:36-0400 Respiratory rate 12 /min [facility] 12-23-2023 14:36-0400 Systolic blood pressure 141 mm[Hg] [facility] 09-25-2022 13:20-0400 Body height 167.6 cm Yolanda Gutierrez MD Work Phone: [facility] 09-25-2022 13:20-0400 Body weight 100.7 kg Yolanda Gutierrez MD Work Phone: [facility] 08-26-2022 14:30-0400 Body height 166.37 cm Peter Rush Other [facility] Other 08-26-2022 14:30-0400 Body mass index (BMI) [Ratio] 36.44 kg/m2 Peter Rush Other [facility] Other 08-26-2022 14:30-0400 Body weight 100.88 kg Peter Rush Other [facility] Other 08-26-2022 14:30-0400 Diastolic blood pressure 78 mm[Hg] Peter Rush Other [facility] Other 08-26-2022 14:30-0400 Respiratory rate 12 /min Peter Rush Other [facility] Other 08-26-2022 14:30-0400 Systolic blood pressure 122 mm[Hg] Peter Rush Other [facility] Other Encounters Encounter Date Encounter Type Care Provider Facility Start: 01-27-2024 End: 01-27-2024 ambulatory Cristian CINTRON Facility:[facility] Start: 01-27-2024 End: 01-27-2024 Patient encounter procedure Cristian CINTRON [facility] Start: 12-26-2023 ambulatory Cristian CINTRON Facility:[facility] Start: 12-23-2023 End: 12-23-2023 ambulatory [facility] Work Phone: Start: 12-23-2023 End: 12-23-2023 Patient encounter procedure [facility] Work Phone: Start: 07-02-2023 End: 07-02-2023 ambulatory Peter Victor Manuel Other [facility] Other Start: 07-02-2023 Telephone encounter Peter Rush [facility] Start: 09-26-2022 End: 09-27-2022 ambulatory YOLANDA GUTIERREZ Facility:[facility] Start: 09-26-2022 End: 09-26-2022 [facility]: [facility] Radiology Ultrasound Comment on above: Polyp of colon, unsp ecified part of colon, unspecified type [K63.5] Start: 09-25-2022 End: 09-25-2022 ambulatory YOLANDA GUTIERREZ Facility:[facility] Start: 09-25-2022 End: 09-25-2022 Patient encounter procedure Yolanda Gutierrez MD Work Phone: Gastroenterology Comment on above: Polyp of colon, unsp ecified part of colon, unspecified type (Primary Dx); Liver hemangioma Start: 08-31-2022 End: 08-31-2022 ambulatory Peter Rush Other [facility] Other Start: 08-31-2022 Telephone encounter Peter Rush [facility] Start: 08-26-2022 End: 08-26-2022 ambulatory Peter Rush Other [facility] Other Start: 08-26-2022 Patient encounter procedure Peter Rush [facility] Start: 01-11-2022 End: 01-12-[address] PETER RUSH Facility:[facility] Start: 04-06-2021 End: 04-07-[address] PETER RUSH Facility:[facility] Start: 02-20-2021 End: 02-20-[address] PETER RUSH Facility:[facility] Start: 04-04-2020 Adult health examination Peter Rush Other [facility] Other Procedures Date Procedure Procedure Detail Performing Clinician Start: 09-26-2022 Us abdominal real time w/image limited Yolanda Gutierrez MD Work Phone: Start: 06-09-2013 Colonoscopy Yolanda Gutierrez MD Work Phone: Start: 06-09-2013 Colonoscopy Cristian CINTRON Start: 06-09-2013 Esophagogastroduodenoscopy Cristian JARAMILLOL Cholecystectomy Cristian JARAMILLOL Cystoscopy Cristian JARAMILLOL Depression screening Julianna Rush Other Excision of hemangioma Venkata jasmeet CINTRNO Excision of lesion of liver Cristian JARAMILLOL History of operative procedure on lumbar spinal structure Cristian NILL Lobectomy of lung Cristian NI LL Total abdominal hyst erectomy with bilateral salpingo-oophorectomy Cristian JARAMILLOL Plan of Treatment Date Care Activity Detail Author Start: 09-26-2025 Diabetes Screening Diabetes Screenin g [facility] Start: 06-09-2023 Colonoscopy COLONOSCOPY [facility] Start: 06-09-2023 COLORECTAL CANCER SCREENING COLORECTAL CANCER SCREENING [facility] Start: 01-24-2023 Covid-19 Vaccine (2022- season) Covid-19 Vaccine () [facility] Start: 01-24-2023 Influenza vaccination Influenza Vacc ine (#1) [facility] Start: 09-25-2022 End: 11-25-2022 CBC W Auto Differential panel - Blood CBC + DIFF Lab Routine Polyp of colon, unspecified part of colon, unspecified type Liver hemangioma Expected: 09/25/2022, Expires: 11/25/2022 [facility] Work Phone: Comment on above: Expected: 09/25/2022 , Expires: 11/25/2022 Start: 09-25-2022 End: 11-25-2022 Comprehensive metabolic 2000 panel - Serum or Plasma COMP METABOLIC PANEL Lab Routine Polyp of colon, unspecified part of colon, unspecified type Liver hemangioma Expected: 09/25/2022, Expires: 11/25/2022 [facility] Work Phone: Comment on above: Expected: 09/25/2022 , Expires: 11/25/2022 Start: 2022 ADVANCE DIRECTIVE DISCUSSION ADVANCE DIRECTIVE DISCUSSION [facility] Start: 2022 BONE DENSITY BONE DENSITY [facility] Start: 2022 Bone Density Screening Bone Density Screening [facility] Start: 2022 Pneumococcal Vaccine : 65+ (1 - PCV) Pneumococcal Vaccine: 65+ (1 - PCV) [facility] Start: 2022 PNEUMOCOCCAL: 65+ (1 - PCV) PNEUMOCOCCAL: 65+ (1 - PCV) [facility] Start: 05-26-2022 DEPRESSION ASSESSMENT DEPRESSION ASS ESSMENT [facility] Start: 09-29-2020 COVID-19 VACCINE (2 - Booster for Roe series) COVID-19 VACCINE (2 - Booster for Roe series) [facility] Start: 04-26-2018 DIABETES SCREEN DIABETES SCREEN [facility] Start: 2017 RSV Vaccine (1 - 1-d ose 60+ series) RSV Vaccine (1 - 1-dose 60+ series) [facility] Start: 2007 SHINGRIX VACCINE (1 of 2) SHINGRIX VACCINE (1 of 2) [facility] Start: 2002 COLOGUARD (FIT-DNA) COLOGUARD (FIT-D NA) [facility] Start: [address] COLONOGRAPHY [facility] Start: 2002 FECAL OCCULT BLOOD FECAL OCCULT BLOO D [facility] Start: 2002 Lipid 1996 panel - S fernando or Plasma Lipid Screening [facility] Start: 2002 LIPID SCREEN LIPID SCREEN [facility] Start: 2002 SIGMOIDOSCOPY SIGMOIDOSCOPY [facility] Start: 1997 Mammography [facility] Start: 1976 Urine microalbumin profile [facility] Start: 1975 HEPATITIS C SCREENING HEPATITIS C SC REENING [facility] Start: 1975 HIV SCREENING HIV SCREENING [facility] End: 09-26-2023 COLONOSCOPY DIAGNOSTIC COLONOSCOPY DIAGNOSTIC Endoscopy Routine Polyp of colon, unspecified part of colon, unspecified type Liver hemangioma 1 Occurrences starting 09/25/2022 until 09/26/2023 [facility] Work Phone: Comment on above: 1 Occurrences starti ng 09/25/2022 until 09/26/2023 End: 10-25-2023 US ABD RIGHT UPPER QUADRANT US ABD RIGHT UPPER QUADRANT Radiology Routine Polyp of colon, unspecified part of colon, unspecified type Liver hemangioma 1 Occurrences starting 09/25/2022 until 10/25/2023 [facility] Work Phone: Comment on above: 1 Occurrences starti ng 09/25/2022 until 10/25/2023 XR Knee - right 4 Views [facility] Immunizations Immunization Date Immunization Notes Care Provider Fa kya 04-09-2022 influenza, high dose seasonal, preservative-free Peter Rush Other [facility] Other 04-09-2022 influenza virus vaccine, split virus (incl. purified surface antigen) Peter Rush Other [facility] Other 04-09-2022 influenza virus vaccine, unspecified formulation Ultra 2 Work Phone: [facility] 03-24-2021 influenza virus vaccine, split virus (incl. purified surface antigen) Peter Rush Other [facility] [employer] Other 03-24-2021 influenza virus vaccine, unspecified formulation [facility] 08-04-2020 COVID-19 Vaccine Roe - Documentation Purposes Only Peter Rush Other [facility] 02-23-2017 tetanus and diphther ia toxoids, adsorbed, preservative free, for adult use (5 Lf of tetanus toxoid and 2 Lf of diphtheria toxoid) Peter Rush Other [facility] 03-15-2016 tetanus and diphther ia toxoids, adsorbed, preservative free, for adult use (5 Lf of tetanus toxoid and 2 Lf of diphtheria toxoid) Peter Rush Other [facility] Payers Date Payer Category Payer Unknown [id number] 2022 Unknown MMO MMO MEDICARE SUPPLEMENT [id number] 2022-Present [phone] [address] [place] [address] Indemnity [id number] 2022 Medicare [id number] 2022 Medicare MEDICARE MEDICAR E A AND B [id number] 2022-Present [phone] [address] [address] [place] [address] Medicare [id number] 1959 Unknown [id number] 1957 Unknown [id number] 1957 Unknown [id number] 1957 Unknown [id number] 1957 Unknown [id number] Private Health Insurance [employer] [id number] Social History Date Type Detail Facility Start: 09-02-2018 End: 09-25-2022 Sex Assigned At [facility] Start: 08-24-2013 End: 01-27-2024 Tobacco smoking status NHIS Never smoked tobacco [facility] Start: 08-24-2013 Tobacco use and exposure Smokeless tobacco non-user [facility] Start: 09-02-2018 Alcohol intake Current drinke r of alcohol (finding) [facility] Start: 08-24-2013 Alcohol Comment occ. [facility] Start: 1955 Sex Assigned At Female [facility] Start: 09-02-2018 End: 09-25-2022 History of Social function [facility] National Score (1-100), lower number is lower risk 67 [facility] Start: 04-11-2021 Gender identity Identifies as female gender (finding) [facility] Start: 11-24-2023 Tobacco smoking stat us NHIS Ex-smoker (finding) [facility] Medical Equipment Procedure Code Equipment Code Equipment Origin al Text Equipment Identifier Dates [id number] Implant - Crushed Cancellous 15cc [id number] Start: 07-19-2016 Comment on above: Description: ONE-OF- A-KIND IMPLANT - Crushed Cancellous 15cc. Brought into room at 0840. Handed sterily to field by Donovan Christensen RN to Abigail aHyes PROJECT MANAGER [employer] at 1015. Also handled by Moe Ulrich MD, and Abigail Carey MD. No preparation required. Plate Lcp Long T Stainless Steel 61mm Bone 2 Hole Variable Angle Fusion - [id number] Start: 07-19-2016 Screw Lcp 2.7mm T8 Stainless Steel 22mm Bone Variable Angle Lock Self Tap - [id number] Start: 07-19-2016 Washer Surfix 3.5mm Stainless Steel Orthopedic Lock Midfoot - [id number] Start: 07-19-2016 Functional Status Date Assessment Result Facility 01-27-2024 Functional Status N/A [facility] Clinical Notes 08-26-2022 to 01-27-2024 Patient InstructionsYolanda Gutierrez MD - 09/25/2022 2:03 PM EDT Note Date & Type Note Facility 01-27-2024 Note General Surgery Offi ce/Clinic Note Chief Complaint consultation for colonoscopy and GERD HPI Staff 68 year old female presents on consultation from Dr. Rush for heartburn and screening colonoscopy. Last EGD completed 05/2013 with chronic gastritis and colonoscopy completed 05/2013- normal. History of Present Illness 68 yo female with h/o GERD, referred for symptomatic GERD and colorectal screening; denies change in bms or blood in stools; frequent breakthrough GERD symptoms, after eating and at night; burning pain into chest, some regurgitation into mouth of acid; increased to omeprazole 40 mg daily with no improvement, no dysphagia or early satiety; abdominal operations significant for cholecystectomy, excision liver hemangioma, and SALOME with bso; last colonoscopy 2014, wnl; EGD in 2014 with fundic gland polyps; patient on omeprazole 40 mg daily; on baby asa and Celebrex daily; no tobacco use; no fmhx of GI malignancy or IBD. Review of Systems PHQ Score Initial Depression Screen Score: 0 SCORE ROS - Provider Constitutional: no fever, no sweats, no weight loss. Eyes: no glasses, no blurred vision, no visual loss. ENMT: no dentures, no hoarseness, no swallowing difficulties, no hearing loss, no ear infection(s), no nose bleeds. Cardiovascular: normal blood pressure, no chest pain, regular heartbeat, no heart murmur. Respiratory: no shortness of breath, no cough, no asthma, no wheezing. Gastrointestinal: no nausea, no vomiting, no diarrhea, no constipation, no blood in stool, no change in bowel habits, no abdominal pain, no hepatitis. Genitourinary: no kidney stones, no urine infection, no dysuria. Musculoskeletal: no pain, no weakness. Skin: no changing moles, no rash, no skin lumps. Neurologic: no seizures, no epilepsy, no headache. Psychiatric: no emotional or psychiatric problem. Heme/Lymph: no bleeding problems, no anemia, no blood clots, no transfusions. Allergy/Immunologic: no swollen lymph nodes/glands, no IV drug abuse. Other: Additional ROS info: Except as noted in the above Review of Systems and in the History of Present Illness, all other systems have been reviewed and are negative or noncontributory. Physical Exam Vitals & Measurements HR: 76(Peripheral) RR: 16 BP: 120/82 HT: 66 in HT: 167.67 cm WT: 101 kg WT: 222.2 lb BMI: 35.93 HEENT: normal conjunctiva, sclera clear, no scleral icterus, EOM intact, PERRLA, oral mucosa moist without lesions. Neck: trachea midline, no mass, symmetric, no thyromegaly or nodules, no adenopathy Respiratory: lungs CTA, respirations non labored. Cardiovascular: regular rate and rhythm, no murmur, no pedal edema or varicosities. Gastrointestinal: obese, soft, non distended, no tenderness, no masses, no palpable hernias, diastasis recti no, no hepatosplenomegaly; normal bs Lymphatic: no cervical adenopathy, no supraclavicular adenopathy. Musculoskeletal: normal gait, digits and nails without infection, nodes, cyanosis, clubbing. Skin: no rashes, no lesions, no ulcers, no subcutaneous nodules, induration. Psychiatric/Neuro: oriented to time, place, person, judgement normal, affect appropriate for age, insight intact, no focal deficits. Tests: review of old records completed , Discussed surgical options, risks, and possible complications with patient. Assessment/Plan 1. Screening for malignant neoplasm of colon (Z12.11: Encounter for screening for malignant neoplasm of colon) plan colonoscopy under anesthesia, informed consent obtained. 2. GERD (gastroesophageal reflux disease) (K21.9: Gastro-esophageal reflux disease without esophagitis) plan EGD under anesthesia for further evaluation, informed consent obtained. Follow-up No qualifying data available Problem List/Past Medical History Ongoing BMI 35.0-35.9,adult Class 3 obesity GERD (gastroesophageal reflux disease) Hepatic hemangioma Screening for malignant neoplasm of colon Historical No qualifying data Procedure/Surgical History Colonoscopy (06/09/2013), EGD - esophagogastroduodenoscopy (06/09/2013), Cholecystectomy, Cystoscopy, Excision of hemangioma, Excision of lesion of liver, History of lumbar spine surgery, Lobectomy of lung, SALOME BSO - Total abdominal hysterectomy and bilateral salpingo-oophorectomy. Medications celecoxib 200 mg Cap, 200 mg= 1 cap(s), Oral, Daily estradiol 0.1 mg/g Vag Crm, 1 gm, Vaginal, MonFri omeprazole 40 mg Cap-DR, 40 mg= 1 cap(s), Oral, Daily Allergies morphine (Patient reported problems) Social History Alcohol - Denies Alcohol Use, 01/27/2024 Substance Abuse - Denies Substance Abuse, 01/27/2024 Tobacco Never (less than 100 in lifetime) Tobacco Use:. Never Smokeless Tobacco Use:., 01/27/2024 Family History Primary malignant neoplasm of lung: Father. Immunizations Vaccine Date Status SARS-CoV-2 (COVID-19) Ad26 vaccine 08/04/2020 Recorded [facility] Comment on above: Result Comment: Elec tronically Signed By: ABDULAZIZ WILSON, Cristian Doshi\Date and Time Signed: 01/27/24 16:18 EDT 09-25-2022 Instructions Yolanda Gutierrez MD - 09/25/2022 2:14 PM EDT Images from the original note were not included. Nice to see you today Bettina: Will obtain labs today liver US colonoscopy with me next available Bowel Preparation Instructions for: Golytely, Nulytely, Trilyte or Colyte (polyethylene glycol 3350 and electrolytes) IF YOU DO NOT FOLLOW THESE DIRECTIONS, YOUR COLONOSCOPY WILL BE CANCELLED. Kerr Instructions: Your bowel must be empty so that your doctor can clearly view your colon. Follow all of the instructions in this handout EXACTLY as they are written. Do NOT eat any solid food the ENTIRE day before your colonoscopy. Drink only clear liquids. Buy your bowel preparation at least 5 days before your colonoscopy. TRANSPORTATION on the Day of Your Exam A responsible person MUST be present with you at Check In prior to your colonoscopy and REMAIN in the endoscopy area until you are discharged. You are NOT ALLOWED to drive, take a taxi or bus, or leave the Endoscopy Center ALONE. If you do not have a responsible entry level truck driver (family member or friend) with you to take you home, your exam cannot be done with sedation and will be cancelled. Please bring a list of all of your current medications, including any Over-the Counter medications with you. Medications If you take insulin, diabetic medications or blood thinners such as Coumadin (warfarin), Plavix (clopidogrel), Ticlid (ticlopidine hydrochloride), Agrylin (anagrelide), Xarelto (Rivaroxaban), Pradaxa (Dabigatran), Eliquis (Apixaban), and Effient (Prasugrel). You MUST call the doctors who orders those medicines for instructions on altering the dosage before your colonoscopy. All other medications should be taken the day of the exam with a sip of water including ASPIRIN. Five (5) Days Before Your Colonoscopy Do NOT take medicines that stop diarrhea - such as Imodium, Kaopectate, or Pepto Bismol. Do NOT take fiber supplements - such as Metamucil, Citrucel, or Perdiem. Do NOT take products that contain iron - such as multi-vitamins (the label lists what is in the products). Do NOT take Vitamin E. Buy the prescription bowel preparation solution at your local pharmacy or drugstore pharmacy. 1 04/2019 Bowel Preparation Instructions for: Golytely, Nulytely, Trilyte or Colyte (polyethylene glycol 3350 and electrolytes) Three (3) Days Before Your Colonoscopy Do NOT eat high-fiber foods - such as popcorn, beans, seeds (flax, sunflower, quinoa), multigrain bread, nuts, salad/vegetables, or fresh and dried fruit. One (1) Day Before Your Colonoscopy Only drink clear liquids the ENTIRE DAY before your colonoscopy. Do NOT eat any solid foods. Drink at least 8 ounces of clear liquids every hour after waking up. The clear liquids you can drink include: Clear Liquid (NO RED LIQUIDS) DO NOT DRINK Gatorade, Pedialyte or Powerade Clear broth or bouillon Coffee or tea (no milk or non-dairy creamer) Carbonated and non-carbonated soft drinks Vladislav-Aid or other fruit flavored drinks Strained fruit juices (no pulp) Jell-O, popsicles, hard candy Water Alcohol Milk or non-dairy creamers Noodles or vegetables in soup Juice with pulp Liquid you cannot see through Do not use tobacco/vaping products The bowel preparation solution will be consumed in two parts. Mix the solution the evening before your colonoscopy and refrigerate before drinking. You may add the flavor pack that came with the bowel preparation. Do NOT add ice, sugar or any other flavorings to the solution. Part 1 At 6:00 PM - Evening before your colonoscopy Drink an 8-oz glass of bowel preparation every 10 minutes for a total of 8 glasses. You may continue to drink clear liquids until midnight. Part 2 On the day of your colonoscopy you may drink clear liquids up to (three) 3 hours before your procedure. 4 1/2 hours before your colonoscopy Drink an 8-oz glass of bowel preparation every 10 minutes for a total of 8 glasses. Fifteen (15) minutes later, drink an 8-oz glass of clear liquids every 15 minutes for a total of 2 glasses. You may continue to drink clear liquids up to (three) 3 hours before your exam. 2 04/2019 Bowel Preparation Instructions for: Miralax-Gatorade Preparations IF YOU DO NOT FOLLOW THESE DIRECTIONS, YOUR COLONOSCOPY WILL BE CANCELLED. Kerr Instructions: Your bowel must be empty so that your doctor can clearly view your colon. Follow all of the instructions in this handout EXACTLY as they are written. Do NOT eat any solid food the ENTIRE day before your colonoscopy. Buy your bowel preparation at least 5 days before your colonoscopy. Four (4) Dulcolax laxative tablets containing 5mg of bisacodyl each (NOT Dulcolax stool softener) One (1) 8.3oz. bottle Miralax (238 grams) or generic equivalent 2 x 32oz. Bottles of Gatorade (NOT RED) Diabetic Patients: Use G2 (Gatorade 2) TRANSPORTATION on the Day of Your Exam A responsible adult MUST be present with you at Check In prior to your colonoscopy and REMAIN in the endoscopy area until you are discharged. You are NOT ALLOWED to drive, take a taxi or bus, or leave the Endoscopy Center ALONE. If you do not have a responsible entry level truck driver (family member or friend) with you to take you home, your exam cannot be done with sedation and will be cancelled. Please bring a list of all of your current medications, including any Nimf-elb-Ubgmxxn medications with you. Medications If you take insulin, diabetic medications or blood thinners such as Coumadin (warfarin), Plavix (clopidogrel), Ticlid (ticlopidine hydrochloride), Agrylin (anagrelide), Xarelto (Rivaroxaban), Pradaxa (Dabigatran), Eliquis (Apixaban), and Effient (Prasugrel). You MUST call the doctors who orders those medicines for instructions on altering the dosage before your colonoscopy. All other medications should be taken the day of the exam with a sip of water including ASPIRIN. Five (5) Days Before Your Colonoscopy Do NOT take medicines that stop diarrhea - such as Imodium, Kaopectate, or Pepto Bismol. Do NOT take fiber supplements - such as Metamucil, Citrucel, or Perdiem. Do NOT take products that contain iron - such as multi-vitamins (the label lists what is in the products). Three (3) Days Before Your Colonoscopy Do NOT eat high-fiber foods - such as popcorn, beans, seeds (flax, sunflower, quinoa), multigrain bread, nuts, salad/vegetables, or fresh and dried fruit. 1 Bowel Preparation Instructions for: Miralax-Gatorade Preparations One (1) Day Before Your Colonoscopy Only drink clear liquids the ENTIRE DAY before your colonoscopy. Do NOT eat any solid foods. Drink at least 8 ounces of clear liquids every hour after waking up. The clear liquids you can drink include: Clear Liquid (NO RED LIQUIDS) DO NOT DRINK Gatorade, Pedialyte or Powerade Clear broth or bouillon Coffee or tea (no milk or non-dairy creamer) Carbonated and non-carbonated soft drinks Vladislav-Aid or other fruit flavored drinks Strained fruit juices (no pulp) Jell-O, popsicles, hard candy Water Alcohol Milk or non-dairy creamers Noodles or vegetables in soup Juice with pulp Liquid you cannot see through Do not use tobacco/vaping products Mix 1/2 of Miralax bottle (119 grams) in each 32 ounces of Gatorade bottle until dissolved. Keep cool in the refrigerator. DO NOT ADD ICE. The bowel preparation solution will be consumed in two parts. Part 1 5:00 PM - Evening before your colonoscopy Take 4 Dulcolax tablets. 6 PM - Evening before your colonoscopy Drink 32 oz. of the mixed solution. Drink an 8 oz. glass of bowel preparation every 15 minutes for a total of 4 glasses. Fifteen (15) minutes later, drink an 8 oz. glass of of clear liquids every 15 minutes for a total of 2 glasses. You may continue to drink clear liquids till midnight. Part 2 On the day of your colonoscopy you may drink clear liquids up to (three) 3 hours prior to procedure. 4 1/2 hours before your colonoscopy Take another 32 oz. bottle of mixed solution. Drink an 8 oz. glass of bowel prep every 15 minutes for a total of 4 glasses. Fifteen (15) minutes later, drink an 8 oz. glass of clear liquids every 15 minutes for a total of 2 glasses. You may continue to drink clear liquids up to (three) 3 hours before your exam. 2 04/2019 documented in this encounter [facility] 09-25-2022 History and physical note Hepatology [facility] [place] HPI consult by Dr Rush for liver lesions This is a 67 yo female s/p laparoscopic left lateral segmentectomy 08/24/2013 for symptomatic liver hemangioma. MRI 04/2013: 1. 5.7 x 7.1 cm partially exophytic lesion arising from superior, lateral aspect of segment I (series 11 image 48) 2. 2.5 x 3.4 cm lesion in segment VII (series 11 image 39) 3. 1.1 x 1.4 cm lesion in segment V series 11 image 74) was discussed at tumor board 06/2013 : 58-year-old female with abdominal bloating, discomfort and right upper quadrant pain. MRI from 05/03/13 was reviewed, with 3 hemangiomas, the largest one being exophytic, measuring 5.7 cm, arising from segment I, and compressing the stomach. PLAN: Resection. she had RUQ pain at that time she did have 3 liver hemangiomas , so the 2 others remain behind and she is wondering whether she should remove them no other sx PAST SURGICAL HISTORY Procedure Laterality Date CHOLECYSTECTOMY EXCISION HEPATIC HEMANGIOMA HYSTERECTOMY HX PAST SURGICAL HISTORY OF 05/03/2015 lumbar laminectomy PAST SURGICAL HISTORY OF Bilateral foot surgery (neuroma removed from left foot and high arch correction from right foot) GENERAL REVIEW OF SYSTEMS: GENERAL: No unexplained weight changes or fevers. HEENT: Negative for severe headaches, negative for changes in hearing or vision. NECK: Negative for lumps, masses or pain. RESPIRATORY: Negative for coughing, wheezing or significant dyspnea. CARDIOVASCULAR: Negative for chest pain or heart palpitations. GASTROINTESTINAL: Negative for rectal bleeding or black tarry stools. GENITOURINARY: Negative for dysuria or urinary incontinence. MUSCULOSKELETAL: Negative for unexplained joint pains, dislocations or fractures. NEUROLOGIC: Negative for unexplained weakness or vertigo. SKIN: Negative for new lesions or rashes. ENDOCRINE: Negative for cold or heat intolerance . PAST MEDICAL HISTORY Diagnosis Date Back pain GERD (gastroesophageal reflux disease) Nephrolithiasis Personal history of unspecified urinary disorder UTI (urinary tract infection) o/e: Ht 167.6 cm (5' 6 ) Wt 100.7 kg (222 lb) BMI 35.83 kg/m General: well appearing no distress HEENT negative no icterus Lungs CTA jomar COR rrm- Abdomen benign she had a CT abd 03/2022:w and wo C dome lesion 2.5cm and r lobe 2.0 cm plan liver hemangiomas sp resection of one in 2013 the oher 2 appear stable and not causing issues will obtain lLFT today and liver US needs a colonoscopy, ordered to be done by me Thank you for your referral. Please feel free to contact me if I can be of further assistance to you Sincerely MD Yolanda Walters MD cc dr Rush documented in this encounter [facility] 08-31-2022 Evaluation note Encounter Date Diagnosis Assessment Notes Aug, Menopause (ICD-10 - Z78.0) [facility] Other 04-03-2023 Evaluation note* Encounter Date Diagnosis Assessment Notes Treatment Notes Treatment Clinical Notes Aug, Medicare annual wellness visit, initial (ICD-10 - Z00.00) Personalized health advice was given to the beneficiary including a written plan for screenings discussed and provided. Advanced care planning reviewed and/or information given as requested. Additional counseling was provided here today in regards to, [ ]. The above visit was performed by [ ], under direct supervision of [ ]. Document reviewed and amended by provider signed below. Healthy diet and exercise. Reviewed age-appropriate preventive testing recommended. Aug, Cavernous hemangioma of liver (ICD-10 - D18.03) Hx of resection of enlarged hemangiomas. Pain in RUQ, patient suspects hemangiomas as a possible cause. Scheduling appt w/ surgery Aug, Menopause (ICD-10 - Z78.0) Healthy diet, Ca and Vit D supplements. Exercise Aug, Obesity (BMI 30-39.9) (ICD-10 - E66.9) This patient has been instructed on a low-fat, high-fiber diet. They are instructed to reduce calories, portion sizes and snacks. It is recommended that they exercise for 30 minutes, 3-5 times weekly. Aug, Atrophic vaginitis (ICD-10 - N95.2) Premarin crm twice weekly Aug, Screening mammography declined (ICD-10 - Z53.20) SBE monthly and notify office of abnormal findings. Recommend mammogram yearly, patient aware of possible missed dx and consequences of not detecting early cancer [facility] Other Evaluation + Plan note No data available for this section [facility] Evaluation note* Diagnosis Polyp of colon, unspecified part of colon, unspecified type- Primary Liver hemangioma Hemangioma of intra-abdominal structures documented in this encounter [facility] note* Diagnosis Polyp of colon, unspecified part of colon, unspecified type Liver hemangioma Hemangioma of intra-abdominal structures documented in this encounter [facility] noteNo [facility] Other Evaluation note* Diagnosis Onset Date Resolution Status Cavernous hemangioma of liver acute Knee pain, bilateral acute Menopause acute Obesity acute Screening for colon cancer a cute Medicare annual wellness visit, initial noneactive Screening mammogram for breast cancer noneactive [facility] Work Phone: History general Narrative - Reported* Type Description Date Medical History frequent UTI Medical History hysterectomy Medical History Atrophic vaginitis Medical History History of nephrolithiasis Medical History Salmonella gastroenteritis Medical History Diarrhea Medical History Cavernous hemangioma of liver Surgical History hysterectomy Surgical History bilateral foot surgeries Surgical History CYSTOSCOPY 2012 Surgical History COLONSCOPY 2013 Hospitalization History hysterectomy Hospitalization History c section, childbirth [facility] [employer] Other Hospital Discharge instructions No data available for this section [facility] Progress note No data available for this section [facility] Reason for referral (narrative)* Outpatient Procedure (Routine) - Authorized Specialty Diagnoses / Procedures Referred By Contac t Referred To Contact [facility] Diagnoses Polyp of colon, unspecified part of colon, unspecified type Liver hemangioma Procedures COLONOSCOPY DIAGNOSTIC COLONOSCOPY FLX DX W/COLLJ SPEC WHEN PFRMD Yolanda Stafford MD [address] [place] [address] [facility] [place] [address] Referral ID Status Reason Start Date Expiration Date Visits Requested Visits Authorized [id number] Authorized Auto-Generat ed Referral 09/25/2022 09/26/2023 1 1 * Diagnostic Procedure Only (Routine) - Authorized Specialty Diagnoses / Procedures Referred By Ernst t Referred To Contact [facility] IM[facility] Diagnoses Polyp of colon, unspecified part of colon, unspecified type Liver hemangioma Procedures US ABD RIGHT UPPER QUADRANT US ABDOMINAL REAL TIME W/IMAGE LIMITED Yolanda Stafford MD [address] [place] [address] Us Imaging Referral ID Status Reason Start Date Expiration Date Visits Requested Visits Authorized [id number] Authorized Auto-Generat ed Referral 09/25/2022 10/25/2023 1 1 [facility] for referral (narrative)* Diagnostic Procedure Only (Routine) - Closed Specialty Diagnoses / Procedures Referred By Ernst berry Referred To Contact [facility] IMAGING Diagnoses Polyp of colon, unspecified part of colon, unspecified type Liver hemangioma Procedures US ABD RIGHT UPPER QUADRANT US ABDOMINAL REAL TIME W/IMAGE LIMITED Yolanda Stafford MD [address] [place] [address] Us Imaging [place] [address] Referral ID Status Reason Start Date Expiration Date V isits Requested Visits Authorized [id number] Closed Auto-Generate d Referral 09/25/2022 10/25/2023 1 1 [facility] for visit Narrative* Diagnostic Procedure Only (Routine) - Closed Specialty Diagnoses / Procedures Referred By Ernst t Referred To Contact [facility] IMAGING Diagnoses Polyp of colon, unspecified part of colon, unspecified type Liver hemangioma Procedures US ABD RIGHT UPPER QUADRANT US ABDOMINAL REAL TIME W/IMAGE LIMITED Yolanda Stafford MD [address] [place] [address] [place] [address] Referral ID Status Reason Start Date Expiration Date V isits Requested Visits Authorized [id number] Closed Auto-Generate d Referral 09/25/2022 10/25/2023 1 1 [facility] Summary Purpose Family History No Family History Records Found Relationship Condition Age at Onset Recorded Date/T rakan brother Asthma Unknown father Malignant neoplasm Unknown Family history of lung cancer Unknown mother Family history of mental disorder Unknown Advance Directives No Advanced Directives Records FoundDocuments on File Type Date Recorded Patient [employer] Expl anation Advance Directive(s) 10/13/2013 10:12 PM Advance Directive Response Recorded Date/ Time Advance Directives No December 22 2:21pm Chief Complaint and Reason for Visit Chief Complaint Wellness Reason for Visit Cavernous hemangioma of liver Knee pain, bilateral Menopause Obesity Screening for colon cancer Medicare annual wellness visit, initial Screening mammogram for breast cancer Additional Source Comments INFORMATION SOURCE (unrecogn ized section and content) DATE CREATED AUTHOR 01/17/2022 [facility] DATE CREATED AUTHOR AUTHOR'S ORGANIZ ATION 09/27/2022 [facility] DATE CREATED AUTHOR AUTHOR'S ORGANIZ ATION 10/04/2022 [facility] DATE CREATED AUTHOR AUTHOR'S ORGANIZ ATION 01/29/2024 [facility] REASON FOR VISIT (unrecogniz ed section and content) Reason Comments New Patient Source Comments (unrecognize d section and content) In the event this informatio n is protected by the Federal Confidentiality of Alcohol and Drug Abuse Patient Records regulations: The Federal rules restrict any use of the information to criminally investigate or prosecute any alcohol or drug abuse patient[facility] the event this information is protected by the Federal Confidentiality of Alcohol and Drug Abuse Patient Records regulations: The Federal rules restrict any use of the information to criminally investigate or prosecute any alcohol or drug abuse patient.[facility] Care Teams (unrecognized sec tion and content) Wealth Management Director Relationship Specialty Start Date End Date Peter Rush PCP - General Internal Medicine 09/11/12 Wealth Management Director Relationship Specialty Start Date End Date Peter Rush DO PCP - General Internal Medicine 09/11/12 Team Status: Active Member Role Status Dates Peter Rush DO Primary Care Provider Active Team Status: Inactive Member Role Status Dates Peter Rush DO Primary Care Provide r, Attending Provider Active Start: December 23, 2023 End: December 23, 2023 Goals (unrecognized section and content) Goals may be documented in a n alternate section FOR RECORDS PERTAINING TO PATIENTS WHO ARE OR HAVE BEEN ENROLLED IN A CHEMICAL DEPENDENCY/SUBSTANCEABUSE PROGRAM, SOME INFORMATION MAY BE OMITTED. This clinical summary was aggregated from multiple sources. Caution should be exercised in using it in the provision of clinical care. This summary normalizes information from multiple sources, and as a consequence, information in this document may materially change the coding, format and clinical context of patient data. In addition, data may be omitted in some cases. CLINICAL DECISIONS SHOULD BE BASED ON THE PRIMARY CLINICAL RECORDS. [employer] provides no warranty or guarantee of the accuracy or completeness of information in this document.
== END 2024-02-23 14:12 | disposition home or self-care (01) ==
LOC: PST 14:11
PROVIDERS: PCP Internal Medicine; Visit Provider Surgery
DX: Z01.818 Encounter for other preprocedural examination (principal); Z12.11 Encounter for screening for malignant neoplasm of colon; K21.9 Gastro-esophageal reflux disease without esophagitis

== ENCOUNTER 2024-03-03 06:22 | Day surgery (SDC) | payer MEDICARE, OTHER, SELFPAY ==
--- NOTE | 2024-03-03 | OP_ITS ---
OPERATION DATE: 03/03/2024 PREOPERATIVE DIAGNOSIS: Refractory gastroesophageal reflux disease, as well as need for colorectal screening. POSTOPERATIVE DIAGNOSIS: 4 cm hiatal hernia, as well as mild distal esophagitis, normal colon. PROCEDURE: EGD and colonoscopy to cecum. SURGEON: Cristian Hernández M.D. ANESTHESIA: Monitored anesthesia care. ESTIMATED BLOOD LOSS: Zero. INDICATIONS AND CONSENT: Patient is a 68-year-old female with long history of gastroesophageal reflux disease, with some refractory symptoms, despite proton pump inhibitor, plus she require colorectal screening. Indications, risks, benefits, alternatives of proceeding with EGD and colonoscopy were explained extensively to the patient, including the risks of bleeding, aspiration, esophageal/gastric/duodenal or colonic perforation or anesthetic complications. All of her questions were answered. Informed consent was obtained. PROCEDURE: Patient brought to the operating room, placed in the left lateral decubitus position. Monitored anesthesia care was provided. Bite block was placed in the patient?s mouth. Scope was inserted into the oropharynx. Under direct visualization, it was advanced into the esophagus, past the cricopharyngeus, down to the stomach. The stomach was insufflated with air. The pylorus was traversed down to the descending portion of the duodenum. There was no evidence of duodenitis or ulceration. There was no scarring within the pyloric channel. Scope was pulled back into the stomach and retroflexed. There was noted to be a 4 cm, sliding type hiatal hernia. No gastric mucosal abnormalities. The GE junction was noted at approximately 35 cm. There was mild distal esophagitis with no Louis?s changes. Remainder of the esophagus was unremarkable. The scope was then withdrawn. Patient tolerated procedure well, was positioned for colonoscopy. Rectal exam was performed, which showed no masses or blood. The scope was then inserted into the anal canal. Under direct visualization, it was advanced. It was advanced to the cecum where cecal markings were clearly identified. There was noted to be a good prep. Upon withdrawal of the scope, mucosal surfaces were carefully examined. There were no mass lesions or polyps. No inflammatory changes or ulcerations. No significant diverticulosis. The scope was retroflexed in the anal canal. There was no significant hemorrhoidal disease. The scope was then withdrawn. The patient tolerated procedure well, was sent to recovery room in good condition. Follow up screening colonoscopy should be in 10 years. CC: Dr. Anjel QUILES
--- OUTSIDE RECORDS SUMMARY | 2024-03-03 06:25 | XMS_ITS | CCD ---
Author Organization [facility] Care Team Providers Care Facilities Operations Technician Name Role Phone VICTOR MANUEL, DR COBIAN [...] Care Unavailable PETER RUSH Primary Care Physician [phone] Cristian CINTRON Attending Unavailable VICTOR MANUEL, PETER Referring Unavailable Allergies Allergy Classification Reported Allergen(s) Allergy Type Date of Onset Reaction(s) Facility (4 sources) Morphine; Translations: [MORPHINE] Drug Allergy 3 [facility] Repository (6 sources) Morphine; Translations: [morphine] Drug Allergy 3 Other: See Comments, Patient reported problems (finding) [facility] (3 sources) Latex; Translations: [LATEX] Drug Allergy [address] [facility] (1 source) patient allergy list reviewed by nurse or physicia Propensity to adverse reactions 8 Comment:Done [employer] Other Medications Current Medications Medication Drug Class(es) [...] tw o times a week. estrogens, conjugated (halfway) 0.625 mg/ml vaginal cream (3 sources) Estrogen [...] 12:00am Start: 02-26-2013 take 1 capsule by [facility] once daily omeprazole (PRILOSEC) 10 mg capsule Indications: Mid back pain , Lumbar degenerative disc disease , Numbness and tingling in right hand , Numbness of foot , Osteoarthritis Take 1 capsule by mouth once daily. 0 02/26/2013 Active Comment on above: Take 1 capsule by [facility] once daily. polyethylene glycol 3350 225552 mg / potassium chloride 2970 mg / sodium bicarbonate 6740 mg / sodium chloride 5860 mg / sodium sulfate 77520 mg powder for oral solution (1 source) [...] Basophils (Bld) [#/Vol] 0.04 10*3/uL Normal <0.11 [facility] Comment on above: Order Comment: Speci gentry Type: BLOOD SPECIMEN Ordering Facility: [facility] Address: [address] [address] Performed By: #### 5 7021-8 #### [facility] CLIA [id number] [address] [place] [address] [place] Basophils/100 WBC (Bld) 0.7 % Normal [facility] Comment on above: Order Comment: Speci gentry Type: BLOOD SPECIMEN Ordering Facility: [facility] Address: [address] [place] [address] Performed By: #### 5 7021-8 #### [facility] CLIA [id number] [address] [place] [address] [place] Differential cell count method Nom (Bld) Auto Normal [facility] Comment on above: Order Comment: Speci men Type: BLOOD SPECIMEN Ordering Facility: [facility] Address: [address] [address] Performed By: #### 5 7021-8 #### [facility] CLIA [id number] [address] [place] [address] [place] Eosinophils (Bld) [#/Vol] 0.04 10*3/uL Normal <0.46 [facility] Comment on above: Order Comment: Speci men Type: BLOOD SPECIMEN Ordering Facility: [facility] Address: [address] [place], [place] [address] Performed By: #### 5 7021-8 #### [facility] IA [id number] [address] [place] [address] [place] Eosinophils/100 WBC (Bld) 0.7 % Normal [facility] Comment on above: Order Comment: Speci men Type: BLOOD SPECIMEN Ordering Facility: [facility] Address: [address] [address] Performed By: #### 5 7021-8 #### [facility] IA [id number] [address] [place] [address] [place] Erythrocyte distribution width (RBC) [Ratio] 12.2 % Normal 11.5-15.0 [facility] Comment on above: Order Comment: Speci men Type: BLOOD SPECIMEN Ordering Facility: [facility] Address: [address] [address] Performed By: #### 5 7021-8 #### [facility] IA [id number] [address] [place] [address] [place] Hematocrit (Bld) [Volume fraction] 43.6 % Normal 36.0-46.0 [facility] Comment on above: Order Comment: Speci men Type: BLOOD SPECIMEN Ordering Facility: [facility] Address: [address] [address] Performed By: #### 5 7021-8 #### [facility] IA [id number] [address] [place] [address] [place] Hemoglobin (Bld) [Mass/Vol] 14.4 g/dL Normal 11.5-15.5 [facility] Comment on above: Order Comment: Speci men Type: BLOOD SPECIMEN Ordering Facility: [facility] Address: [address] [address] Performed By: #### 5 7021-8 #### [facility] IA [id number] [address] [place] [address] [place] Immature granulocytes (Bld) [#/Vol] 10*3/uL Normal <0.10 [facility] Comment on above: Order Comment: Speci men Type: BLOOD SPECIMEN Ordering Facility: [facility] Address: [address] [address] Performed By: #### 5 7021-8 #### [facility] CLIA [id number] [address] [place] [address] [place] Immature granulocytes/100 WBC (Bld) 0.3 % Normal [facility] Comment on above: Order Comment: Speci men Type: BLOOD SPECIMEN Ordering Facility: [facility] Address: [address] [address] Performed By: #### 5 7021-8 #### [facility] IA [id number] [address] [place] [address] [place] Lymphocytes (Bld) [#/Vol] 1.48 10*3/uL Normal 1.00-4.00 [facility] Comment on above: Order Comment: Speci men Type: BLOOD SPECIMEN Ordering Facility: [facility] Address: [address] [address] Performed By: #### 5 7021-8 #### [facility] IA [id number] [address] [place] [address] [place] Lymphocytes/100 WBC (Bld) 25.8 % Normal [facility] Comment on above: Order Comment: Speci men Type: BLOOD SPECIMEN Ordering Facility: [facility] Address: [address] [address] Performed By: #### 5 7021-8 #### [facility] IA [id number] [address] [place] [address] [place] MCH (RBC) [Entitic mass] 30.5 pg Normal 26.0-34.0 [facility] Comment on above: Order Comment: Speci men Type: BLOOD SPECIMEN Ordering Facility: [facility] Address: [address] [address] Performed By: #### 5 7021-8 #### [facility] IA [id number] [address] [place] [address] [place] MCHC (RBC) [Mass/Vol] 33.0 g/dL Normal 30.5-36.0 [facility] Comment on above: Order Comment: Speci men Type: BLOOD SPECIMEN Ordering Facility: [facility] Address: [address] [address] Performed By: #### 5 7021-8 #### [facility] CLIA [id number] [address] [place] [address] [place] MCV (RBC) [Entitic vol] 92.4 fL Normal 80.0-100.0 [facility] Comment on above: Order Comment: Speci men Type: BLOOD SPECIMEN Ordering Facility: [facility] Address: [address] [address] Performed By: #### 5 7021-8 #### [facility] CLIA [id number] [address] [place] [address] [place] Monocytes (Bld) [#/Vol] 0.55 10*3/uL Normal <0.87 [facility] Comment on above: Order Comment: Speci men Type: BLOOD SPECIMEN Ordering Facility: [facility] Address: [address] [address] Performed By: #### 5 7021-8 #### [facility] CLIA [id number] [address] [place] [address] [place] Monocytes/100 WBC (Bld) 9.6 % Normal [facility] Comment on above: Order Comment: Speci men Type: BLOOD SPECIMEN Ordering Facility: [facility] Address: [address] Performed By: #### 5 7021-8 #### [facility] CLIA [id number] [address] [place] [address] [place] Neutrophils (Bld) [#/Vol] 3.61 10*3/uL Normal 1.45-7.50 [facility] Comment on above: Order Comment: Speci men Type: BLOOD SPECIMEN Ordering Facility: [facility] Address: [address] [address] Performed By: #### 5 7021-8 #### [facility] IA [id number] [address] [place] [address] [place] Neutrophils/100 WBC (Bld) 62.9 % Normal [facility] Comment on above: Order Comment: Speci men Type: BLOOD SPECIMEN Ordering Facility: [facility] Address: [address] [address] Performed By: #### 5 7021-8 #### [facility] IA [id number] [address] [place] [address] [place] Nucleated RBC (Bld) [#/Vol] 10*3/uL Normal <0.01 [facility] Comment on above: Order Comment: Speci men Type: BLOOD SPECIMEN Ordering Facility: [facility] Address: [address] [address] Performed By: #### 5 7021-8 #### [facility] IA [id number] [address] [place] [address] [place] Nucleated RBC/100 WBC (Bld) [Ratio] 0.0 /[address] [facility] Comment on above: Order Comment: Speci men Type: BLOOD SPECIMEN Ordering Facility: [facility] Address: [address] [address] Performed By: #### 5 7021-8 #### [facility] IA [id number] [address] [place] [address] [place] Platelet mean volume (Bld) [Entitic vol] 9.2 fL Normal 9.0-12.7 [facility] Comment on above: Order Comment: Speci men Type: BLOOD SPECIMEN Ordering Facility: [facility] Address: [address] [address] Performed By: #### 5 7021-8 #### [facility] IA [id number] [address] [place] [address] [place] Platelets (Bld) [#/Vol] 267 10*3/uL Normal 150-400 [facility] Comment on above: Order Comment: Speci men Type: BLOOD SPECIMEN Ordering Facility: [facility] Address: [address] Performed By: #### 5 7021-8 #### [facility] IA [id number] [address] [place] [address] [facility] RBC (Bld) [#/Vol] 4.72 10*6/uL Normal 3.90-5.20 [facility] Comment on above: Order Comment: Speci men Type: BLOOD SPECIMEN Ordering Facility: [facility] Address: [address] Performed By: #### 5 7021-8 #### [facility] IA [id number] [address] [place] WBC (Bld) [#/Vol] 5.74 10*3/uL Normal 3.70-11.00 [facility] Comment on above: Order Comment: Speci men Type: BLOOD SPECIMEN Ordering Facility: [facility] Address: [address] Performed By: #### 5 7021-8 #### [facility] IA [id number] [address] [place], [place] [address] [place] [address] [place] Comprehensive metabolic 2000 panelon 09-26-2022 Albumin [Mass/Vol] 4.6 g/dL Normal 3.9-4.9 [facility] Comment on above: Order Comment: Speci men Type: BLOOD SPECIMEN Ordering Facility: [facility] Address: [address] Performed By: #### 2 4323-8 #### [facility] IA [id number] [address] [place] [address] [place] ALP [Catalytic activity/Vol] 89 U/L Normal 34-123 [facility] Comment on above: Order Comment: Speci men Type: BLOOD SPECIMEN Ordering Facility: [facility] Address: [address] Performed By: #### 2 4323-8 #### [facility] IA [id number] [address] [place] [address] [place] ALT [Catalytic activity/Vol] 28 U/L Normal 7-38 [facility] Comment on above: Order Comment: Speci men Type: BLOOD SPECIMEN Ordering Facility: [facility] Address: [address] [address] Performed By: #### 2 4323-8 #### [facility] CLIA [id number] [address] [place] [address] [place] Anion gap [Moles/Vol] 9 mmol/L Normal 9-18 [facility] Comment on above: Order Comment: Speci men Type: BLOOD SPECIMEN Ordering Facility: [facility] Address: [address] [address] Performed By: #### 2 4323-8 #### [facility] CLIA [id number] [address] [place] [address] [place] AST [Catalytic activity/Vol] 21 U/L Normal 13-35 [facility] Comment on above: Order Comment: Speci men Type: BLOOD SPECIMEN Ordering Facility: [facility] Address: [address] [address] Performed By: #### 2 4323-8 #### [facility] CLIA [id number] [address] [place] [address] [place] Bilirubin [Mass/Vol] 0.5 mg/dL Normal 0.2-1.3 [facility] Comment on above: Order Comment: Speci men Type: BLOOD SPECIMEN Ordering Facility: [facility] Address: [address] Performed By: #### 2 4323-8 #### [facility] CLIA [id number] [address] [place] [address] [place] Calcium [Mass/Vol] 9.7 mg/dL Normal 8.5-10.2 [facility] Comment on above: Order Comment: Speci men Type: BLOOD SPECIMEN Ordering Facility: [facility] Address: [address] [address] Performed By: #### 2 4323-8 #### [facility] CLIA [id number] [address] [place] [address] [place] Chloride [Moles/Vol] 104 mmol/L Normal 97-105 [facility] Comment on above: Order Comment: Speci men Type: BLOOD SPECIMEN Ordering Facility: [facility] Address: [address] [address] Performed By: #### 2 4323-8 #### [facility] CLIA [id number] [address] [place] [address] [place] CO2 [Moles/Vol] 29 mmol/L Normal 22-30 [facility] Comment on above: Order Comment: Speci men Type: BLOOD SPECIMEN Ordering Facility: [facility] Address: [address] [address] Performed By: #### 2 4323-8 #### [facility] CLIA [id number] [address] [place] Creatinine [Mass/Vol] 0.68 mg/dL Normal 0.58-0.96 [facility] Comment on above: Order Comment: Speci men Type: BLOOD SPECIMEN Ordering Facility: [facility] Address: [address] [address] Performed By: #### 2 4323-8 #### [facility] CLIA [id number] [place] ESTIMATED GLOMERULAR FILTRATION RATE 97 mL/min/1.73m??? Normal >=60 [facility] Comment on above: Order Comment: Speci men Type: BLOOD SPECIMEN Ordering Facility: [facility] Address: [address] [address] Result Comment: Barbara mated Glomerular Filtration Rate [...] GFR. Performed By: #### 2 4323-8 #### [facility] IA [id number] [address] [place] [address] [place] Glucose [Mass/Vol] 98 mg/dL Normal 74-99 [facility] Comment on above: Order Comment: Vineet rinaldi Type: BLOOD SPECIMEN Ordering Facility: [facility] Address: [address] [place] [address] Result Comment: The [place] Diabetes Association (ADA) provides guidance for cutoff [...] Standards of Medical Care in Diabetes 2016, [place] [employer] Association. Diabetes Care. 2016.39(Suppl 1). Performed By: #### 2 4323-8 #### [facility] IA [id number] [address] [place] [address] [place] Potassium [Moles/Vol] 4.6 mmol/L Normal 3.7-5.1 [facility] Comment on above: Order Comment: Vineet rinaldi Type: BLOOD SPECIMEN Ordering Facility: [facility] Address: [address] [place] [address] Performed By: #### 2 4323-8 #### [facility] IA [id number] [address] [place] [address] [place] Protein [Mass/Vol] 7.4 g/dL Normal 6.3-8.0 [facility] Comment on above: Order Comment: Vineet rinaldi Type: BLOOD SPECIMEN Ordering Facility: [facility] Address: [address] [place] [address] Performed By: #### 2 4323-8 #### [facility] IA [id number] [address] [place] [address] [place] Sodium [Moles/Vol] 142 mmol/L Normal 136-144 [facility] Comment on above: Order Comment: Speci men Type: BLOOD SPECIMEN Ordering Facility: [facility] Address: [place] [address] Performed By: #### 2 4323-8 #### [facility] CLIA [id number] [address] [place] [address] [facility] Urea nitrogen [Mass/Vol] 17 mg/dL Normal 7-21 [facility] Comment on above: Order Comment: Speci men Type: BLOOD SPECIMEN Ordering Facility: [facility] Address: [place] [address] Performed By: #### 2 4323-8 #### [facility] CLIA [id number] [facility] [place] [address] [facility] No Panel Informationon 09-[address] [facility] US ABD RIGHT UPPER QUADRANTo n [...] and could represent the previously described hemangiomas. Engineering Technical Writer: ERIKA Transcribe Date/Time: Oct 03 2022 6:03A Dictated by : NAS DENSON MD This examination was interpreted and the report reviewed and electronically signed by: NAS DENSON MD on Oct 03 2022 6:08AM EST [id number] N [facility] US ABD SPLEEN -NBon 09-27-19 US ABD [...] and could represent the previously described hemangiomas. Engineering Technical Writer: [facility] Transcribe Date/Time: Oct 03 2022 6:03A Dictated by : NAS DENSON MD This examination was interpreted and the report reviewed and electronically signed by: NAS DENSON MD on Oct 03 2022 6:08AM EST [id number] N [facility] CNOVon 09-25-2022 CNOV Office Visit (GASTAV ) BRIANNABETTINA ([id number]) 1955 F Date Time Provider Department 09/25/22 1:30 PM YOLANDA STAFFORD During your visit today, we recorded the following information about you: Weight Height 100.7 kg 1.676 m Yolanda Ta MD 09/25/2022 2:21 PM [facility] Dr Rush for liver [...] If you do not have a responsible team cdl driver (family member or friend) with you [...] Imodium, Ka (more content not included)... Normal [facility] HISTORY PHYSICALon HISTORY PHYSICAL HNO ID: [id number] Author: Yolanda Gutierrez MD Service: ? Author Type: Physician Type: HANDP Filed: 09/25/2022 2:21 PM Note Text: Hepatology [facility] HPI consult by Dr Rush for [...] Yolanda Walters MD cc dr Rush Normal [facility] CULTURE URINEon 01-11-2022 CULTURE URINE Culture Observations : MODERATE GROWTH OF MIXED GENITAL JESUS. NO POTENTIAL PATHOGENS SEEN. Normal [facility] Comment on above: Performed By: #### U RCX #### [facility] [address] [address] [address] Na Gonzales UA RANDOM W/MICROSCOPICon BACTERIA NONE SEEN Normal NONE SEEN [facility] Comment on above: Performed By: #### U AMIC #### [facility] [address] [address] [address] Na Gonzales Bilirubin Ql (U) Negative Normal NEGATIVE [facility] Comment on above: Performed By: #### U AMIC #### [facility] [address] [address] [address] Na Gonzales CAST NONE SEEN Normal NONE SEEN [facility] Comment on above: Performed By: #### U AMIC #### [facility] [address] [address] [address] Na Gonzales Clarity (U) CLEAR Normal CLEAR [facility] Comment on above: Performed By: #### U AMIC #### [facility] [address] [address] [address] Na Gonzales Color (U) LT. YELLOW Normal YELLOW [facility] Comment on above: Performed By: #### U AMIC #### [facility] [address] [address] [address] Na Gonzales Crystals LM Nom (Urine sed) NONE SEEN Normal NONE SEEN [facility] Comment on above: Performed By: #### U AMIC #### [facility] [address] [place] [address] Dr. Na Gonzales Epithelial cells LM Ql (Urine sed) NONE SEEN Normal NONE SEEN /RARE [facility] Comment on above: Performed By: #### U AMIC #### [facility] [address] [place] [address] Dr. Na Gonzales Glucose Ql (U) Negative Normal NEGATIVE [facility] Comment on above: Performed By: #### U AMIC #### [facility] [address] [place] [address] Dr. Na Gonzales Hemoglobin Ql (U) Negative Normal NEGATIVE [facility] Comment on above: Performed By: #### U AMIC #### [facility] [address] [place] [address] Dr. Na Gonzales Ketones Ql (U) Negative Normal NEGATIVE [facility] Comment on above: Performed By: #### U AMIC #### [facility] [address] [place] [address] Dr. Na Gonzales LEUKOCYTES SMALL Abnormal NEGATIVE [facility] Comment on above: Performed By: #### U AMIC #### [facility] [address] [place] [address] Dr. Na Gonzales MUCOUS NONE SEEN Normal NONE SEEN [facility] Comment on above: Performed By: #### U AMIC #### [facility] [address] [place] [address] Dr. Na Gonzales Nitrite Ql (U) Negative Normal NEGATIVE [facility] Comment on above: Performed By: #### U AMIC #### [facility] [address] [place] [address] Dr. Na Gonzales pH (U) 6.0 [pH] Normal 5-9 [facility] Comment on above: Performed By: #### U AMIC #### [facility] [address] [place] [address] Dr. Na Gonzales RBC NONE SEEN Abnormal 0-2 [facility] Comment on above: Performed By: #### U AMIC #### [facility] [address] [place] [address] Dr. Na Gonzales SPEC GRAVITY 1.005 Normal 1.005-<=1.025 [facility] Comment on above: Performed By: #### U AMIC #### [facility] [address] [place] [address] Dr. Na Gonzales UA PROTEIN Negative Normal NEGATIVE/ TRACE [facility] Comment on above: Performed By: #### U AMIC #### [facility] [address] [place] [address] Dr. Na Gonzales Urobilinogen Qn (U) 0.2 {Irene'U}/dL Normal 0.2 - 1. 0 [facility] Comment on above: Performed By: #### U AMIC #### [facility] [address] [place] [address] Dr. Na Gonzales WBC 0-2 Abnormal NONE SEEN [facility] Comment on above: Performed By: #### U AMIC #### [facility] [address] [place] [address] ABD/PELVIS WO CONon [...] DEMETRIS PATEL Date: 2021-04-06 18:26 Normal [facility] CULTURE STOOLon 02-22-2021 CULTURE STOOL Culture Observations : SALMONELLA CALD TO EDNA FELIX LPN@1225//RK Culture Observations: [facility]/02/21/21/R K Culture Observations: SENDING ISOLATE TO [facility] FOR SEROTYPING Isolate 1 Salmonella enterica ssp enterica Heavy growth of ORGANISM 1 Salmonella enterica ssp enterica ANTIBIOTIC M.I.C RX STATUS Ampicillin <=2 S F Ceftazidime <=1 S F Ceftriaxone <=1 S F Ciprofloxacin <=0.25 S F Levofloxacin <=0.12 S F Trimethoprim/Sulfamet hoxazole <=20 S F Normal [facility] Comment on above: Performed By: #### S TOOLCX #### [facility] [address] [place] [address] Dr. Na Gonzales CLOSTRIDIUM DIFFICILE PCRon 02-21-2021 C difficile Toxin Gene SHADI Negative Normal Negative [facility] Comment on above: Performed By: #### C DIFNAA #### [facility] [address] [place] [address] Dr. Na Gonzales Vital Signs Date Time Vital Sign Value Performing Clinician Facility 01-27-2024 15:15-0400 Blood Pressure Location Cristian NILL [facility] 01-27-2024 15:15-0400 Diastolic blood pressure 82 mm[Hg] Cristian NILL [facility] 01-27-2024 15:15-0400 Heart rate 76 /min Cristian NILL [facility] 01-27-2024 15:15-0400 Respiratory rate 16 /min Cristian NILL [facility] 01-27-2024 15:15-0400 Systolic blood pressure 120 mm[Hg] Cristian NILL [facility] 12-23-2023 14:36-0400 Body height 167.64 cm [facility] 12-23-2023 14:36-0400 Body mass index (BMI) [Ratio] 35.2 kg/m2 [facility] 12-23-2023 14:36-0400 Body weight 98.93 kg [facility] 12-23-2023 14:36-0400 Diastolic blood pressure 86 mm[Hg] [facility] 12-23-2023 14:36-0400 Heart rate 98 /min [facility] 12-23-2023 14:36-0400 Respiratory rate 12 /min [facility] 12-23-2023 14:36-0400 Systolic blood pressure 141 mm[Hg] [facility] 09-25-2022 13:20-0400 Body height 167.6 cm Yolanda Gutierrez MD Work Phone: [facility] 09-25-2022 13:20-0400 Body weight 100.7 kg Yolanda Gutierrez MD Work Phone: [facility] 08-26-2022 14:30-0400 Body height 166.37 cm Peter Rush Other [facility] Other 08-26-2022 14:30-0400 Body mass index (BMI) [Ratio] 36.44 kg/m2 Peter Rush Other [facility] Other 08-26-2022 14:30-0400 Body weight 100.88 kg Peter Rush Other [facility] Other 08-26-2022 14:30-0400 Diastolic blood pressure 78 mm[Hg] Peter Rush Other [facility] Other 08-26-2022 14:30-0400 Respiratory rate 12 /min Peter Rush Other [facility] Other 08-26-2022 14:30-0400 Systolic blood pressure 122 mm[Hg] Peter Rush Other [facility] Other Encounters Encounter Date Encounter Type Care Provider Facility Start: 01-27-2024 End: 01-27-2024 ambulatory Cristian CINTRON Facility:[facility] Start: 01-27-2024 End: 01-27-2024 Patient encounter procedure Cristian CINTRON [facility] Start: 12-26-2023 ambulatory Cristian CINTRON Facility:[facility] Start: 12-23-2023 End: 12-23-2023 ambulatory [facility] Work Phone: Start: 12-23-2023 End: 12-23-2023 Patient encounter procedure [facility] Work Phone: Start: 07-02-2023 End: 07-02-2023 ambulatory Peter Victor Manuel Other [facility] Other Start: 07-02-2023 Telephone encounter Peter Rush [facility] Start: 09-26-2022 End: 09-27-2022 ambulatory YOLANDA GUTIERREZ Facility:[facility] Start: 09-26-2022 End: 09-26-2022 [facility] Radiology Ultrasound Comment on above: Polyp of colon, unsp ecified part of colon, unspecified type [K63.5] Start: 09-25-2022 End: 09-25-2022 ambulatory YOLANDA GUTIERREZ Facility:[facility] Start: 09-25-2022 End: 09-25-2022 Patient encounter procedure Yolanda Gutierrez MD Work Phone: Gastroenterology Comment on above: Polyp of colon, unsp ecified part of colon, unspecified type (Primary Dx); Liver hemangioma Start: 08-31-2022 End: 08-31-2022 ambulatory Peter Rush Other [facility] Other Start: 08-31-2022 Telephone encounter Peter Rush [facility] Start: 08-26-2022 End: 08-26-2022 ambulatory Peter Rush Other [facility] Other Start: 08-26-2022 Patient encounter procedure Peter Rush [facility] Start: 01-11-2022 End: 01-12-[address] PETER RUSH Facility:[facility] Start: 04-06-2021 End: 04-07-[address] PETER RUSH Facility:[facility] Start: 02-20-2021 End: 02-20-[address] PETER RUSH Facility:[facility] Start: 04-04-2020 Adult health examination Peter Rush Other [facility] Other Procedures Date Procedure Procedure Detail Performing Clinician Start: 09-26-2022 Us abdominal real time w/image limited Yolanda Gutierrez MD Work Phone: Start: 06-09-2013 Colonoscopy Yolanda Gutierrez MD Work Phone: Start: 06-09-2013 Colonoscopy Cristian CINTRON Start: 06-09-2013 Esophagogastroduodenoscopy Cristian JARAMILLOL Cholecystectomy Cristian JARAMILLOL Cystoscopy Cristian JARAMILLOL Depression screening Julianna Rush Other Excision of hemangioma Venkata jasmeet CINTRON Excision of lesion of liver Cristian JRAAMILLOL History of operative procedure on lumbar spinal structure Cristian NILL Lobectomy of lung Cristian NI LL Total abdominal hyst erectomy with bilateral salpingo-oophorectomy Cristian JARAMILLOL Plan of Treatment Date Care Activity Detail Author Start: 09-26-2025 Diabetes Screening Diabetes Screenin g [facility] Start: 06-09-2023 Colonoscopy COLONOSCOPY [facility] Start: 06-09-2023 COLORECTAL CANCER SCREENING COLORECTAL CANCER SCREENING [facility] Start: 01-24-2023 Covid-19 Vaccine (2022- season) Covid-19 Vaccine () [facility] Start: 01-24-2023 Influenza vaccination Influenza Vacc ine (#1) [facility] Start: 09-25-2022 End: 11-25-2022 CBC W Auto Differential panel - Blood CBC + DIFF Lab Routine Polyp of colon, unspecified part of colon, unspecified type Liver hemangioma Expected: 09/25/2022, Expires: 11/25/2022 [facility] Work Phone: Comment on above: Expected: 09/25/2022 , Expires: 11/25/2022 Start: 09-25-2022 End: 11-25-2022 Comprehensive metabolic 2000 panel - Serum or Plasma COMP METABOLIC PANEL Lab Routine Polyp of colon, unspecified part of colon, unspecified type Liver hemangioma Expected: 09/25/2022, Expires: 11/25/2022 [facility] Work Phone: Comment on above: Expected: 09/25/2022 , Expires: 11/25/2022 Start: 2022 ADVANCE DIRECTIVE DISCUSSION ADVANCE DIRECTIVE DISCUSSION [facility] Start: 2022 BONE DENSITY BONE DENSITY [facility] Start: 2022 Bone Density Screening Bone Density Screening [facility] Start: 2022 Pneumococcal Vaccine : 65+ (1 - PCV) Pneumococcal Vaccine: 65+ (1 - PCV) [facility] Start: 2022 PNEUMOCOCCAL: 65+ (1 - PCV) PNEUMOCOCCAL: 65+ (1 - PCV) [facility] Start: 05-26-2022 DEPRESSION ASSESSMENT DEPRESSION ASS ESSMENT [facility] Start: 09-29-2020 COVID-19 VACCINE (2 - Booster for Roe series) COVID-19 VACCINE (2 - Booster for Roe series) [facility] Start: 04-26-2018 DIABETES SCREEN DIABETES SCREEN [facility] Start: 2017 RSV Vaccine (1 - 1-d ose 60+ series) RSV Vaccine (1 - 1-dose 60+ series) [facility] Start: 2007 SHINGRIX VACCINE (1 of 2) SHINGRIX VACCINE (1 of 2) [facility] Start: 2002 COLOGUARD (FIT-DNA) COLOGUARD (FIT-D NA) [facility] Start: [address] COLONOGRAPHY [facility] Start: 2002 FECAL OCCULT BLOOD FECAL OCCULT BLOO D [facility] Start: 2002 Lipid 1996 panel - S fernando or Plasma Lipid Screening [facility] Start: 2002 LIPID SCREEN LIPID SCREEN [facility] Start: 2002 SIGMOIDOSCOPY SIGMOIDOSCOPY [facility] Start: [address] [facility] Start: 1976 Urine microalbumin profile [facility] Start: 1975 HEPATITIS C SCREENING HEPATITIS C SC REENING [facility] Start: 1975 HIV SCREENING HIV SCREENING [facility] End: 09-26-2023 COLONOSCOPY DIAGNOSTIC COLONOSCOPY DIAGNOSTIC Endoscopy Routine Polyp of colon, unspecified part of colon, unspecified type Liver hemangioma 1 Occurrences starting 09/25/2022 until 09/26/2023 [facility] Work Phone: Comment on above: 1 Occurrences starti ng 09/25/2022 until 09/26/2023 End: 10-25-2023 US ABD RIGHT UPPER QUADRANT US ABD RIGHT UPPER QUADRANT Radiology Routine Polyp of colon, unspecified part of colon, unspecified type Liver hemangioma 1 Occurrences starting 09/25/2022 until 10/25/2023 [facility] Work Phone: Comment on above: 1 Occurrences starti ng 09/25/2022 until 10/25/2023 XR Knee - right [facility] Immunizations Immunization Date Immunization Notes Care Provider Fa kya 04-09-2022 influenza, high dose seasonal, preservative-free Peter Rush Other [facility] Other 04-09-2022 influenza virus vaccine, split virus (incl. purified surface antigen) Peter Rush Other [facility] Other 04-09-2022 influenza virus vaccine, unspecified formulation Ultra 2 Work Phone: [facility] 03-24-2021 influenza virus vaccine, split virus (incl. purified surface antigen) Peter Rush Other [facility] Other 03-24-2021 influenza virus vaccine, unspecified formulation [facility] 08-04-2020 COVID-19 Vaccine Roe - Documentation Purposes Only Peter Rush Other [facility] 02-23-2017 tetanus and diphther ia toxoids, adsorbed, preservative free, for adult use (5 Lf of tetanus toxoid and 2 Lf of diphtheria toxoid) Peter Rush Other [facility] 03-15-2016 tetanus and diphther ia toxoids, adsorbed, preservative free, for adult use (5 Lf of tetanus toxoid and 2 Lf of diphtheria toxoid) Peter Rush Other [facility] Payers Date Payer Category Payer Unknown [id number] 2022 Unknown MMO MMO MEDICARE SUPPLEMENT [id number] 2022-Present [phone] [address] [place] [address] Indemnity [id number] 2022 Medicare [id number] 2022 Medicare MEDICARE MEDICAR E A AND B [id number] 2022-Present [phone] [address] [address] [place] [address] Medicare [id number] 1959 Unknown [id number] 1957 Unknown [id number] 1957 Unknown [id number] 1957 Unknown [id number] 1957 Unknown [id number] Private Health Insurance [employer] [id number] Social History Date Type Detail Facility Start: 09-02-2018 End: 09-25-2022 Sex Assigned At [facility] Start: 08-24-2013 End: 01-27-2024 Tobacco smoking status NHIS Never smoked tobacco [facility] Start: 08-24-2013 Tobacco use and exposure Smokeless tobacco non-user [facility] Start: 09-02-2018 Alcohol intake Current drinke r of alcohol (finding) [facility] Start: 08-24-2013 Alcohol Comment occ. [facility] Start: 1955 Sex Assigned At Female [facility] Start: 09-02-2018 End: 09-25-2022 History of Social function [facility] National Score (1-100), lower number is lower risk 67 [facility] Start: 04-11-2021 Gender identity Identifies as female gender (finding) [facility] Start: 11-24-2023 Tobacco smoking stat us NHIS Ex-smoker (finding) [facility] Medical Equipment Procedure Code Equipment Code Equipment Origin al Text Equipment Identifier Dates Pni-Vb-M-Kind Implant - Crushed Cancellous 15cc [id number] Start: 07-19-2016 Comment on above: Description: ONE-OF- A-KIND IMPLANT - Crushed Cancellous 15cc. Brought into room at 0840. Handed sterily to field by Donovan Christensen RN to Abigail Hayes PROCESS OWNER at 1015. Also handled by Moe Ulrich MD, and Abigail Carey MD. No preparation required. Plate Lcp Long T Stainless Steel 61mm Bone 2 Hole Variable Angle Fusion - [id number] Start: 07-19-2016 Screw Lcp 2.7mm T8 Stainless Steel 22mm Bone Variable Angle Lock Self Tap - [id number] Start: 07-19-2016 Washer Surfix 3.5mm Stainless Steel Orthopedic Lock Midfoot - [id number] Start: 07-19-2016 Functional Status Date Assessment Result Facility 01-27-2024 Functional Status N/A [facility] Clinical Notes 08-26-2022 to 01-27-2024 Patient InstructionsYolanda [...] SARS-CoV-2 (COVID-19) Ad26 vaccine 08/04/2020 Recorded [facility] Comment on above: Result Comment: Elec tronically [...] If you do not have a responsible team cdl driver (family member or friend) with you [...] If you do not have a responsible team cdl driver (family member or friend) with you to take you home, your exam cannot be done with sedation and will be cancelled. Please bring a list of all of your current medications, including any Iufs-qud-Ldpahbc medications with you. Medications If you take [...] exam. 2 04/2019 documented in this encounter [facility] 09-25-2022 History and physical note Hepatology [facility] HPI consult by Dr Rush for liver [...] cc dr Rush documented in this encounter [facility] 08-31-2022 Evaluation note Encounter Date Diagnosis Assessment Notes Aug, Menopause (ICD-10 - Z78.0) [facility] Other 04-03-2023 Evaluation note* Encounter Date Diagnosis [...] and consequences of not detecting early cancer [facility] Other Evaluation + Plan note No data available for this section [facility] Diagnosis Polyp of colon, unspecified part of colon, unspecified type- Primary Liver hemangioma Hemangioma of intra-abdominal structures documented in this encounter [facility] note* Diagnosis Polyp of colon, unspecified part of colon, unspecified type Liver hemangioma Hemangioma of intra-abdominal structures documented in this encounter [facility] Other Evaluation note* Diagnosis Onset Date Resolution Status Cavernous hemangioma of liver acute Knee pain, bilateral acute Menopause acute Obesity acute Screening for colon cancer a cute Medicare annual wellness visit, initial noneactive Screening mammogram for breast cancer noneactive [facility] Work Phone: History general Narrative - Reported* Type Description Date Medical History frequent UTI Medical History hysterectomy Medical History Atrophic vaginitis Medical History History of nephrolithiasis Medical History Salmonella gastroenteritis Medical History Diarrhea Medical History Cavernous hemangioma of liver Surgical History hysterectomy Surgical History bilateral foot surgeries Surgical History CYSTOSCOPY 2012 Surgical History COLONSCOPY 2013 Hospitalization History hysterectomy Hospitalization History c section, childbirth [facility] Other Hospital Discharge instructions No data available for this section [facility] General Surgery A vida é feita de [place] Progress note No data available for this section [facility] General Surgery A vida é feita de [place] Reason for referral (narrative)* Outpatient Procedure (Routine) - Authorized Specialty Diagnoses / Procedures Referred By Contac t Referred To Contact [facility] Diagnoses Polyp of colon, unspecified part of colon, unspecified type Liver hemangioma Procedures COLONOSCOPY DIAGNOSTIC COLONOSCOPY FLX DX W/COLLJ SPEC WHEN PFRMD Yolanda Stafford MD [address] [place] [address] [facility] [place] [address] Referral ID Status Reason Start Date Expiration Date Visits Requested Visits Authorized [id number] Authorized Auto-Generat ed Referral 09/25/2022 09/26/2023 1 1 * Diagnostic Procedure Only (Routine) - Authorized Specialty Diagnoses / Procedures Referred By Ernst t Referred To Contact [facility] Diagnoses Polyp of colon, unspecified part of colon, unspecified type Liver hemangioma Procedures US ABD RIGHT UPPER QUADRANT US ABDOMINAL REAL TIME W/IMAGE LIMITED Yolanda Stafford MD [address] [place] [address] Us Imaging Referral ID Status Reason Start Date Expiration Date Visits Requested Visits Authorized [id number] Authorized Auto-Generat ed Referral 09/25/2022 10/25/2023 1 1 [facility] for referral (narrative)* Diagnostic Procedure Only (Routine) - Closed Specialty Diagnoses / Procedures Referred By Ernst berry Referred To Contact [facility] IMAGING Diagnoses Polyp of colon, unspecified part of colon, unspecified type Liver hemangioma Procedures US ABD RIGHT UPPER QUADRANT US ABDOMINAL REAL TIME W/IMAGE LIMITED Yolanda Stafford MD [address] [place] [address] [facility] Imaging [place] [address] Referral ID Status Reason Start Date Expiration Date V isits Requested Visits Authorized [id number] Closed Auto-Generate d Referral 09/25/2022 10/25/2023 1 1 [facility] for visit Narrative* Diagnostic Procedure Only (Routine) - Closed Specialty Diagnoses / Procedures Referred By Ernst t Referred To Contact [facility] IMAGING Diagnoses Polyp of colon, unspecified part of colon, unspecified type Liver hemangioma Procedures US ABD RIGHT UPPER QUADRANT US ABDOMINAL REAL TIME W/IMAGE LIMITED Yolanda Stafford MD [address] [place] [address] [place] [address] Referral ID Status Reason Start Date Expiration Date V isits Requested Visits Authorized [id number] Closed Auto-Generate d Referral 09/25/2022 10/25/2023 [address] 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 DATE CREATED AUTHOR AUTHOR'S ORGANIZ ATION 01/29/2024 [facility] REASON FOR VISIT (unrecogniz ed section and content) Reason Comments New Patient Source Comments (unrecognize d section and content) In the event this informatio n is protected by the Federal Confidentiality of Alcohol and Drug Abuse Patient Records regulations: The Federal rules restrict any use of the information to criminally investigate or prosecute any alcohol or drug abuse patient.[facility] the event this information is protected by the Federal Confidentiality of Alcohol and Drug Abuse Patient Records regulations: The Federal rules restrict any use of the information to criminally investigate or prosecute any alcohol or drug abuse patient.[facility] Care Teams (unrecognized sec tion and content) Facilities Operations Technician Relationship Specialty Start Date End Date Peter Rush PCP - General Internal Medicine 09/11/12 Facilities Operations Technician Relationship Specialty Start Date End Date Peter [...] BE BASED ON THE PRIMARY CLINICAL RECORDS. [employer] provides no warranty or guarantee of the accuracy or completeness of information in this document.
[2024-03-03 06:29] VITALS: BP 171/79; PULSE 106; TEMP 36.1; O2SAT 98; BMI 34.8
[2024-03-03] MEDS: 0.9 % SODIUM CHLORIDE 500 ML 50 ML IV ×2 (07:00→07:36)
[2024-03-03 07:44] VITALS: BP 118/70; PULSE 84; TEMP 36.2; O2SAT 96
[2024-03-03 07:59] VITALS: BP 126/66; PULSE 73; O2SAT 98
[2024-03-03 08:14] VITALS: BP 132/67; PULSE 71; O2SAT 99
== END 2024-03-03 08:14 | disposition home or self-care (01) ==
PROVIDERS: PCP Internal Medicine; Visit Provider Surgery
PROC: (CPT 43235; principal; 2024-03-03 07:30)
DX: Z12.11 Encounter for screening for malignant neoplasm of colon (principal); K21.00 Gastro-esophageal reflux disease with esophagitis, without bleeding; K44.9 Diaphragmatic hernia without obstruction or gangrene; Z90.49 Acquired absence of other specified parts of digestive tract; Z90.710 Acquired absence of both cervix and uterus
CPT/HCPCS: 43235; G0121; J2704

== ENCOUNTER 2024-06-15 09:10 | Outpatient (OUT) | payer MEDICARE, OTHER, SELFPAY ==
--- NOTE | 2024-06-15 09:13 | XR_ITS ---
The [address] [address] Patient Name: RADHA REED MRN: [id number] date: 1955 Sex: F Assigned Patient Location: [facility] Current Patient Location: [facility] Accession/Order Number: [id number] Exam Date: 06/15/2024 09:20 Report Date: 06/15/2024 13:08 At the request of: RATNA CHOU Procedure: XR foot LT min 3V PROCEDURE: XR foot LT min 3V HISTORY: Left Foot Pain COMPARISON: None. FINDINGS: BONES:No fracture, acute abnormality, or significant arthropathy. SOFT TISSUES:No visible soft tissue swelling. EFFUSION:None visible. OTHER: Negative. XR/XR foot LT min 3V IMPRESSION: 1. No acute bone abnormality. Minimal degenerative changes. Electronically authenticated by: CHAI SANDERS Date: 06/15/2024 13:08
--- OUTSIDE RECORDS SUMMARY | 2024-06-15 09:26 | XMS_ITS | CCD ---
Author Organization [facility] Care Team Providers Care Hammer Heater Name Role Phone VICTOR MANUEL, DR COBIAN [...] Care Unavailable YOLANDA STAFFORD Referring Unavailabl e BALL, PETER Plaza Primary Care Unavailable YOLANDA STAFFORD Referring Unavailabl e BALL, PETER Plaza Primary Care Unavailable PETER RUSH Primary Care Physician [phone] Cristian CINTRON Attending Unavailable BALL, PETER Referring Unavailable NILL, Cristian Hanson Attending Unavailable NILL, Cristian Hanson Attending Unavailable Allergies Allergy Classification Reported Allergen(s) Allergy Type Date of Onset Reaction(s) Facility (4 sources) Morphine; Translations: [MORPHINE] Drug Allergy 3 [facility] Repository (7 sources) Morphine; Translations: [morphine] Drug Allergy 3 Other: See Comments, Patient reported problems (finding) [facility] (3 sources) Latex; Translations: [LATEX] Drug Allergy 3 Rash [facility] (1 source) patient allergy list reviewed by nurse or physicia Propensity to adverse reactions 8 Comment:Done Retevo Other Medications Current Medications Medication Drug Class(es) Dates Sig (Normalized) Sig (Original) celecoxib 200 mg oral capsule (2 sources) Nonsteroidal Anti-inflammatory Drug Start: 01-27-2024 take 1 capsule by mouth once daily celecoxib 200 mg Cap 200 mg = 1 cap(s), Oral, Daily, Refills(s) 0 Start Date: 01/27/24 Status: Ordered estradiol 0.1 mg/ml vaginal cream (8 sources) Estrogen Start: 01-06-2024 estradiol 0.1 mg/g [...] tw o times a week. estrogens, conjugated ([facility]) 0.625 mg/ml vaginal cream (3 sources) Estrogen [...] 12:00am Start: 02-26-2013 take 1 capsule by mo ut once daily omeprazole (PRILOSEC) 10 mg capsule Indications: Mid back pain , Lumbar degenerative disc disease , Numbness and tingling in right hand , Numbness of foot , Osteoarthritis Take 1 capsule by mouth once daily. 0 02/26/2013 Active Comment on above: Take 1 capsule by mo uth once daily. pantoprazole 40 mg delayed release oral tablet (1 source) Proton Pump Inhibitor Start: take 1 tablet by mouth twice daily Pantoprazole [address] Tab 40 mg = 1 tab(s), Oral, BID, Refills(s) 0 Start Date: 03/18/24 Status: Ordered polyethylene glycol 3350 093333 mg / potassium chloride 2970 mg / sodium bicarbonate 6740 mg / sodium chloride 5860 mg / sodium sulfate 28215 mg powder for oral solution (1 source) Osmotic Laxative Start: 3 End: 3 peg 3350-Electrolytes (GOLYTELY) 236-22.74-6.74 -5.86 gram suspension [...] on above: Take 2 tablets by mo uth once daily. CYANOCOBALAMIN, VITAMIN B-12, (VITAMIN B-12 [...] Problem Date Documented Da te Episodic/Chronic Abdominal hernia (1 source) Diaphragmatic hernia; Translations: [Diaphragmatic hernia without obstruction or gangrene] Onset: 4 Episodic Calculus of urinary tract (7 sources) Personal history of urinary calculi; Translations: [History of calculus of kidney] Onset: 3 04-21-2013 Episodic Esophageal disorders (8 sources) Gastroesophageal reflux disease; Translations: [Gastro-esophageal reflux [...] colon] Episodic Other and unspecified benign neoplasm (6 sources) Hemangioma of liver; Translations: [Hemangioma of [...] Episodic Other nutritional; endocrine; and metabolic disorders (6 sources) Body mass index 30+ - obesity; [...] and metabolic disorders (2 sources) Obese class III 01-06-2024 Chronic Other screening for suspected conditions (not mental disorders or infectious disease) (5 sources) Patient encounter status; Translations: [Encounter for [...] of unspecified knee, initial encounter] Episodic Unclassified (2 sources) Patient encounter status 01-27-2024 Urinary tract infections [...] Results Test Name Value Interpretation Reference Range Facility Ambulatory Visit Summaryon 1 Ambulatory Visit Summary Ambulatory Visit Summary BETTINA REED Anika :1955 Visit Date:03/24/2024 Ambulatory Visit Instructions Your Care Team Attending Physician - ABDULAZIZ WILSON, Cristian Hanson Primary Care Physician - VICTOR MANUEL CHAIREZ, PETER This Is Your Medications List Contact prescribing physician if questions or concerns celecoxib (celecoxib 200 mg Cap) estradiol topical (estradiol 0.1 mg/g Vag Crm) pantoprazole (Pantoprazole [address] Tab) Procedures Performed Colonoscopy (03/03/2024), EGD - esophagogastroduodenoscopy (03/03/2024), Colonoscopy (06/09/2013), EGD - esophagogastroduodenoscopy (06/09/2013), Cholecystectomy, Cystoscopy, Excision of hemangioma, Excision of lesion of liver, History of lumbar spine surgery, Lobectomy of lung, SALOME BSO - Total abdominal hysterectomy and bilateral salpingo-oophorectomy. Medications What How Much When Instructions Unchanged celecoxib (celecoxib 200 mg Cap) 1 Capsules By Mouth Every day Contact prescribing physician if questions or concerns Unchanged estradiol topical (estradiol 0.1 mg/ g Vag Crm) 1 Gram Vaginal Friday & Friday Contact prescribing physician if questions or concerns Unchanged pantoprazole (Pantoprazole [address] Tab) 1 Tablets By Mouth 2 times a day Contact prescribing physician if questions or concerns Allergies morphine (Patient reported problems) Problems Ongoing - Any problem that you are currently receiving treatment for. BMI 35.0-35.9,adult Class 3 obesity GERD (gastroesophageal reflux disease) Hepatic hemangioma Screening for malignant neoplasm of colon Patient Survey You may receive a survey via text or e-mail asking about your office visit. Please share your experience with us by completing your survey. We appreciate your feedback and thank you for choosing us for your care. Normal [facility] General Surgery Office/Clini c Noteon 03-24-2024 General Surgery Office/Clinic Note General Surgery Office/Clinic Note Chief Complaint post operative follow up HPI Staff 21 day post operative follow up post EGD and colonoscopy. Omeprazole was changed to Protonix after completion of EGD. Patient reports this has significantly improved night time reflux. History of Present Illness s/p EGD for refractory GERD despite Omeprazole, and colonoscopy for colorectal screening; normal colon; 4 cm hiatal hernia noted, with mild distal esophagitis; symptoms improved with Protonix 40 mg daily; no abd pain or blood in stools. Review of Systems PHQ Score Initial Depression [...] been reviewed and are negative or noncontributory. Assessment/Plan 1. Hiatal hernia with GERD and esophagitis (K44.9: Diaphragmatic hernia without obstruction or gangrene) improved with Protonix; recommend frequent small meals, no eating 3 hours before going to bed; wt loss; call with problems/questions. 2. Screening for malignant neoplasm of colon (Z12.11: Encounter for screening for malignant neoplasm of colon) f/u screening colonoscopy in 10 years if in good health; call sooner if problems/questions. Gastro-esophageal reflux disease with esophagitis, without bleeding (K21.00: Gastro-esophageal reflux disease with esophagitis, without bleeding) Follow-up No qualifying data available Problem List/Past Medical History Ongoing BMI 35.0-35.9,adult Class 3 obesity GERD (gastroesophageal reflux disease) Hepatic hemangioma Hiatal hernia with GERD and esophagitis Screening for malignant neoplasm of colon Historical No qualifying data Procedure/Surgical History Colonoscopy (03/03/2024), EGD - esophagogastroduodenoscopy (03/03/2024), Colonoscopy (06/09/2013), EGD - esophagogastroduodenoscopy (06/09/2013), Cholecystectomy, Cystoscopy, Excision of hemangioma, Excision of lesion of liver, History of lumbar spine surgery, Lobectomy of lung, SALOME BSO - Total abdominal hysterectomy and bilateral salpingo-oophorectomy. Medications celecoxib 200 mg Cap, 200 mg= 1 cap(s), Oral, Daily estradiol 0.1 mg/g Vag Crm, 1 gm, Vaginal, MonFri Pantoprazole [address] Tab, 40 mg= 1 tab(s), Oral, BID Allergies morphine (Patient reported problems) Social History Alcohol - Denies Alcohol Use, 01/27/2024 Never., 03/23/2024 Substance Abuse - Denies Substance Abuse, 01/27/2024 Never., 03/23/2024 Tobacco Never (less than 100 in lifetime) Tobacco Use:., 03/23/2024 Family History Primary malignant neoplasm of lung: Father. Immunizations Vaccine Date Status SARS-CoV-2 (COVID-19) Ad26 vaccine 08/04/2020 Recorded Normal [facility] Comment on above: Result Comment: Elec tronically Signed By: ABDULAZIZ WILSON, Cristian Doshi\Date and Time Signed: 03/24/24 16:23 EDT Reminderson 03-04-2024 Reminders Reminders From: Patti Douglas LPN To: GSN - Clinical; Sent: 03/04/2024 14:13:04 EDT Show up: 02/01/2034 07:00:00 EDT Subject: colonoscopy recall Due Date/Time: 03/03/2034 07:00:00 EDT Reminder/Recall Patient due for screening colonoscopy 03/03/2034. Normal [facility] CBC W Auto Differential pane l (Bld)on 09-26-2022 Basophils (Bld) [#/Vol] 0.04 10*3/uL Normal <0.11 [facility] Comment on above: Order Comment: Speci men Type: BLOOD SPECIMEN Ordering Facility: [facility] Address: [address] [address] Performed By: #### 5 7021-8 #### [facility] CLIA [id number] [place] [address] [place] Basophils/100 WBC (Bld) 0.7 % Normal [facility] Comment on above: Order Comment: Speci men Type: BLOOD SPECIMEN Ordering Facility: [facility] Address: [address] [place] [address] Performed By: #### 5 7021-8 #### [facility] CLIA [id number] [facility] [place] [address] [place] Differential cell count method Nom (Bld) Auto Normal [facility] Comment on above: Order Comment: Speci men Type: BLOOD SPECIMEN Ordering Facility: [facility] Address: [address] [address] Performed By: #### 5 7021-8 #### [facility] CLIA [id number] [address] [place] [address] [place] Eosinophils (Bld) [#/Vol] 0.04 10*3/uL Normal <0.46 [facility] Comment on above: Order Comment: Speci men Type: BLOOD SPECIMEN Ordering Facility: [facility] Address: [address] [address] Performed By: #### 5 7021-8 #### [facility] CLIA [id number] [address] [place] [address] [place] Eosinophils/100 WBC (Bld) 0.7 % Normal [facility] Comment on above: Order Comment: Speci men Type: BLOOD SPECIMEN Ordering Facility: [facility] Address: [address] [address] Performed By: #### 5 7021-8 #### [facility] CLIA [id number] [place] [address] [place] Erythrocyte distribution width (RBC) [Ratio] 12.2 % Normal 11.5-15.0 [facility] Comment on above: Order Comment: Speci men Type: BLOOD SPECIMEN Ordering Facility: [facility] Address: [address] [address] Performed By: #### 5 7021-8 #### [facility] CLIA [id number] [address] [place] [address] [place] Hematocrit (Bld) [Volume fraction] 43.6 % Normal 36.0-46.0 [facility] Comment on above: Order Comment: Speci men Type: BLOOD SPECIMEN Ordering Facility: [facility] Address: [address] [address] Performed By: #### 5 7021-8 #### [facility] CLIA [id number] [address] [place] [address] [place] Hemoglobin (Bld) [Mass/Vol] 14.4 g/dL Normal 11.5-15.5 [facility] Comment on above: Order Comment: Speci men Type: BLOOD SPECIMEN Ordering Facility: [facility] Address: [address] [address] Performed By: #### 5 7021-8 #### [facility] CLIA [id number] [address] [place] [address] [place] Immature granulocytes (Bld) [#/Vol] 10*3/uL Normal <0.10 [facility] Comment on above: Order Comment: Speci men Type: BLOOD SPECIMEN Ordering Facility: [facility] Address: [address] [address] Performed By: #### 5 7021-8 #### [facility] CLIA [id number] [address] [place] [address] [place] Immature granulocytes/100 WBC (Bld) 0.3 % Normal [facility] Comment on above: Order Comment: Speci men Type: BLOOD SPECIMEN Ordering Facility: [facility] Address: [address] [address] Performed By: #### 5 7021-8 #### [facility] IA [id number] [address] [place] [address] [place] Lymphocytes (Bld) [#/Vol] 1.48 10*3/uL Normal 1.00-4.00 [facility] Comment on above: Order Comment: Speci men Type: BLOOD SPECIMEN Ordering Facility: [facility] Address: [address] Performed By: #### 5 7021-8 #### [facility] IA [id number] [address] [place] [address] [place] Lymphocytes/100 WBC (Bld) 25.8 % Normal [facility] Comment on above: Order Comment: Speci men Type: BLOOD SPECIMEN Ordering Facility: [facility] Address: [address] Performed By: #### 5 7021-8 #### [facility] IA [id number] [address] [place] [address] [place] MCH (RBC) [Entitic mass] 30.5 pg Normal 26.0-34.0 [facility] Comment on above: Order Comment: Speci men Type: BLOOD SPECIMEN Ordering Facility: [facility] Address: [address] [id number] Performed By: #### 5 7021-8 #### [facility] [place] [id number] [address] [place] MCHC (RBC) [Mass/Vol] 33.0 g/dL Normal 30.5-36.0 [facility] Comment on above: Order Comment: Speci men Type: BLOOD SPECIMEN Ordering Facility: [facility] Address: [address] Performed By: #### 5 7021-8 #### [facility] IA [id number] [address] [place] [address] [place] MCV (RBC) [Entitic vol] 92.4 fL Normal 80.0-100.0 [facility] Comment on above: Order Comment: Speci men Type: BLOOD SPECIMEN Ordering Facility: [facility] Address: [address] Performed By: #### 5 7021-8 #### [facility] IA [id number] [place] [address] [place] Monocytes (Bld) [#/Vol] 0.55 10*3/uL Normal <0.87 [facility] Comment on above: Order Comment: Speci men Type: BLOOD SPECIMEN Ordering Facility: [facility] Address: [address] [address] Performed By: #### 5 7021-8 #### [facility] [place] [id number] [address] [place] [address] [place] Monocytes/100 WBC (Bld) 9.6 % Normal [facility] Comment on above: Order Comment: Speci men Type: BLOOD SPECIMEN Ordering Facility: [facility] Address: [address] Performed By: #### 5 7021-8 #### [facility] IA [id number] [address] [place] [address] [place] Neutrophils (Bld) [#/Vol] 3.61 10*3/uL Normal 1.45-7.50 [facility] Comment on above: Order Comment: Speci men Type: BLOOD SPECIMEN Ordering Facility: [facility] Address: [address] [address] Performed By: #### 5 7021-8 #### [facility] CLIA [id number] [address] [place] Neutrophils/100 WBC (Bld) 62.9 % Normal [facility] Comment on above: Order Comment: Speci men Type: BLOOD SPECIMEN Ordering Facility: [facility] Address: [address] [address] Performed By: #### 5 7021-8 #### [facility] CLIA [id number] [address] [place] [address] [place] Nucleated RBC (Bld) [#/Vol] 10*3/uL Normal <0.01 [facility] Comment on above: Order Comment: Speci men Type: BLOOD SPECIMEN Ordering Facility: [facility] Address: [address] [address] Performed By: #### 5 7021-8 #### [facility] IA [id number] [address] [place] [address] [place] Nucleated RBC/100 WBC (Bld) [Ratio] 0.0 /100 WBC Normal [facility] Comment on above: Order Comment: Speci men Type: BLOOD SPECIMEN Ordering Facility: [facility] Address: [address] Performed By: #### 5 7021-8 #### [facility] CLIA [id number] [address] [place] [address] [place] Platelet mean volume (Bld) [Entitic vol] 9.2 fL Normal 9.0-12.7 [facility] Comment on above: Order Comment: Speci men Type: BLOOD SPECIMEN Ordering Facility: [facility] Address: [address] [address] Performed By: #### 5 7021-8 #### [facility] CLIA [id number] [address] [place], [place] [id number] [place] [address] [place] Platelets (Bld) [#/Vol] 267 10*3/uL Normal 150-400 [facility] Comment on above: Order Comment: Speci men Type: BLOOD SPECIMEN Ordering Facility: [facility] Address: [address] [place] [address] Performed By: #### 5 7021-8 #### [facility] CLIA [id number] [address] [place] [address] [place] RBC (Bld) [#/Vol] 4.72 10*6/uL Normal 3.90-5.20 [facility] Comment on above: Order Comment: Speci men Type: BLOOD SPECIMEN Ordering Facility: [facility] Address: [address] [place] [address] Performed By: #### 5 7021-8 #### [facility] CLIA [id number] [address] [place] [address] [place] WBC (Bld) [#/Vol] 5.74 10*3/uL Normal 3.70-11.00 [facility] Comment on above: Order Comment: Speci men Type: BLOOD SPECIMEN Ordering Facility: [facility] Address: [address] [place], [place] [address] Performed By: #### 5 7021-8 #### [facility] CLIA [id number] [address] [place] [address] [facility] [place] Comprehensive metabolic 2000 panelon 09-26-2022 Albumin [Mass/Vol] 4.6 g/dL Normal 3.9-4.9 [facility] Comment on above: Order Comment: Speci men Type: BLOOD SPECIMEN Ordering Facility: [facility] Address: [address] [place] [address] Performed By: #### 2 4323-8 #### [facility] CLIA [id number] [address] [id number] [facility] [place] ALP [Catalytic activity/Vol] 89 U/L Normal 34-123 [facility] Comment on above: Order Comment: Speci men Type: BLOOD SPECIMEN Ordering Facility: [facility] Address: [address] [address] Performed By: #### 2 4323-8 #### [facility] CLIA [id number] [address] [place] [address] [place] ALT [Catalytic activity/Vol] 28 U/L Normal 7-38 [facility] Comment on above: Order Comment: Speci men Type: BLOOD SPECIMEN Ordering Facility: [facility] Address: [address] [address] Performed By: #### 2 4323-8 #### [facility] CLIA [id number] [address] [place] [address] [place] Anion gap [Moles/Vol] 9 mmol/L Normal 9-18 [facility] Comment on above: Order Comment: Speci men Type: BLOOD SPECIMEN Ordering Facility: [facility] Address: [address] [address] Performed By: #### 2 4323-8 #### [facility] CLIA [id number] [address] [place] [address] [place] AST [Catalytic activity/Vol] 21 U/L Normal 13-35 [facility] Comment on above: Order Comment: Speci men Type: BLOOD SPECIMEN Ordering Facility: [facility] Address: [address] [address] Performed By: #### 2 4323-8 #### [facility] CLIA [id number] [address] [place] [address] [place] Bilirubin [Mass/Vol] 0.5 mg/dL Normal 0.2-1.3 [facility] Comment on above: Order Comment: Speci men Type: BLOOD SPECIMEN Ordering Facility: [facility] Address: [address] [address] Performed By: #### 2 4323-8 #### [facility] CLIA [id number] [address] [place] [address] [place] Calcium [Mass/Vol] 9.7 mg/dL Normal 8.5-10.2 [facility] Comment on above: Order Comment: Speci men Type: BLOOD SPECIMEN Ordering Facility: [facility] Address: [address] [address] Performed By: #### 2 4323-8 #### [facility] CLIA [id number] [address] [place] [address] [place] Chloride [Moles/Vol] 104 mmol/L Normal 97-105 [facility] Comment on above: Order Comment: Speci men Type: BLOOD SPECIMEN Ordering Facility: [facility] Address: [address] [place] [address] Performed By: #### 2 4323-8 #### [facility] CLIA [id number] [address] [place] [address] [place] CO2 [Moles/Vol] 29 mmol/L Normal 22-30 [facility] Comment on above: Order Comment: Speci men Type: BLOOD SPECIMEN Ordering Facility: [facility] Address: [address] [place] [address] Performed By: #### 2 4323-8 #### [facility] CLIA [id number] [address] [place] [address] [place] Creatinine [Mass/Vol] 0.68 mg/dL Normal 0.58-0.96 [facility] Comment on above: Order Comment: Speci men Type: BLOOD SPECIMEN Ordering Facility: [facility] Address: [address] [place] [address] Performed By: #### 2 4323-8 #### [facility] CLIA [id number] [address] [place] ESTIMATED GLOMERULAR FILTRATION RATE 97 mL/min/1.73m??? Normal >=60 [facility] Comment on above: Order Comment: Speci men Type: BLOOD SPECIMEN Ordering Facility: [facility] Address: [address] [place] [address] Result Comment: Barbara mated Glomerular Filtration Rate [...] GFR. Performed By: #### 2 4323-8 #### [facility] CLIA [id number] [address] [place] [address] [place] Glucose [Mass/Vol] 98 mg/dL Normal 74-99 [facility] Comment on above: Order Comment: Vineet rinaldi Type: BLOOD SPECIMEN Ordering Facility: [facility] Address: [address] [address] Result Comment: The [place] [employer] (ADA) provides guidance for cutoff [...] Standards of Medical Care in Diabetes 2016, [place] [employer]. Diabetes Care. 2016.39(Suppl 1). Performed By: #### 2 4323-8 #### [facility] CLIA [id number] [address] [place] [address] [place] Potassium [Moles/Vol] 4.6 mmol/L Normal 3.7-5.1 [facility] Comment on above: Order Comment: Vineet rinaldi Type: BLOOD SPECIMEN Ordering Facility: [facility] Address: [address] [address] Performed By: #### 2 4323-8 #### [facility] CLIA [id number] [address] [place] [address] [place] Protein [Mass/Vol] 7.4 g/dL Normal 6.3-8.0 [facility] Comment on above: Order Comment: Vineet rinaldi Type: BLOOD SPECIMEN Ordering Facility: [facility] Address: [address] [address] Performed By: #### 2 4323-8 #### [facility] CLIA [id number] [facility] [place] [address] [place] Sodium [Moles/Vol] 142 mmol/L Normal 136-144 [facility] Comment on above: Order Comment: Speci men Type: BLOOD SPECIMEN Ordering Facility: [facility] Address: [address] [address] Performed By: #### 2 4323-8 #### [facility] CLIA [id number] [address] [place], [place] [id number] [place] [address] [place] Urea nitrogen [Mass/Vol] 17 mg/dL Normal 7-21 [facility] Comment on above: Order Comment: Speci men Type: BLOOD SPECIMEN Ordering Facility: [facility] Address: [address] [address] Performed By: #### 2 [id number] #### [facility] CLIA [id number] [facility] [place], [place] [id number] [place] [address] STATES OF [place] No Panel Informationon 09-26 [facility] US ABD RIGHT UPPER QUADRANTo n 09-26-2022 [...] and could represent the previously described hemangiomas. Gambling Broker: DARRELL Transcribe Date/Time: Oct 03 2022 6:03A Dictated by : NAS DENSON MD This examination was interpreted and the report reviewed and electronically signed by: NAS DENSON MD on Oct 03 2022 6:08AM EST [id number] [facility] US ABD SPLEEN -NBon 09-27-19 US [...] and could represent the previously described hemangiomas. Gambling Broker: [facility] Transcribe Date/Time: Oct 03 2022 6:03A Dictated by : NAS DENSON MD This examination was interpreted and the report reviewed and electronically signed by: NAS DENSON MD on Oct 03 2022 6:08AM EST [id number] [facility] CNOVon 09-25-2022 CNOV Office Visit (GASTAV ) BETTINA REED ([id number]) 1955 F Date Time Provider Department 09/25/22 1:30 PM YOLANDA STAFFORD During your visit today, we recorded the following information about you: Weight Height 100.7 kg 1.676 m Yolanda Ta MD 09/25/2022 2:21 PM Signed Hepatology [facility] consult by Dr Rush for liver lesions [...] If you do not have a responsible driver/merchandiser (family member or friend) with you to [...] Imodium, Ka (more content not included)... Normal [facility] HISTORY PHYSICALon HISTORY PHYSICAL HNO ID: [id number] Author: Yolanda Gutierrez MD Service: ? Author Type: Physician Type: HANDP Filed: 09/25/2022 2:21 PM Note Text: Hepatology [facility] HPI consult by Dr Rush for liver [...] Yolanda Walters MD cc dr Victor Manuel Ramires [facility] CULTURE URINEon 01-11-2022 CULTURE URINE Culture Observations : MODERATE GROWTH OF MIXED GENITAL JESUS. NO POTENTIAL PATHOGENS SEEN. Normal [facility] Comment on above: Performed By: #### U RCX #### [facility] [address] [address] [address] Na Gonzales UA RANDOM W/MICROSCOPICon BACTERIA NONE SEEN Normal NONE SEEN [facility] Comment on above: Performed By: #### U AMIC #### [facility] [address] [address] [address] Na Gonzales Bilirubin Ql (U) Negative Normal NEGATIVE [facility] Comment on above: Performed By: #### U AMIC #### [facility] [address] [address] [address] Na Gonzales CAST NONE SEEN Normal NONE SEEN [facility] Comment on above: Performed By: #### U AMIC #### [facility] [address] [place] [address] Dr. Na Gonzales Clarity (U) CLEAR Normal CLEAR [facility] Comment on above: Performed By: #### U AMIC #### [facility] [address] [address] [address] Na Gonzales Color (U) LT. YELLOW Normal YELLOW [facility] Comment on above: Performed By: #### U AMIC #### [facility] [address] [place] [address] Dr. Na Gonzales Crystals LM Nom (Urine sed) NONE SEEN Normal NONE SEEN [facility] Comment on above: Performed By: #### U AMIC #### [facility] [address] [place] [address] Dr. Na Gonzales Epithelial cells LM Ql (Urine sed) NONE SEEN Normal NONE SEEN /RARE [facility] Comment on above: Performed By: #### U AMIC #### [facility] [address] [place] [address] Dr. Na Gonzales Glucose Ql (U) Negative Normal NEGATIVE [facility] Comment on above: Performed By: #### U AMIC #### [facility] [address] [place] [address] Dr. Na Gonzales Hemoglobin Ql (U) Negative Normal NEGATIVE The [facility] Comment on above: Performed By: #### U AMIC #### [facility] [address] [address] [address] Na Gonzales Ketones Ql (U) Negative Normal NEGATIVE [facility] Comment on above: Performed By: #### U AMIC #### [facility] [address] [place] [address] Dr. Na Gonzales LEUKOCYTES SMALL Abnormal NEGATIVE [facility] Comment on above: Performed By: #### U AMIC #### [facility] [address] [place] [address] Dr. Na Gonzales MUCOUS NONE SEEN Normal NONE SEEN [facility] Comment on above: Performed By: #### U AMIC #### [facility] [address] [place] [address] Dr. Na Gonzales Nitrite Ql (U) Negative Normal NEGATIVE [facility] Comment on above: Performed By: #### U AMIC #### [facility] [address] [place] [address] Dr. Na Gonzales pH (U) 6.0 [pH] Normal 5-9 [facility] Comment on above: Performed By: #### U AMIC #### [facility] [address] [place] [address] Dr. Na Gonzales RBC NONE SEEN Abnormal 0-2 [facility] Comment on above: Performed By: #### U AMIC #### [facility] [address] [place] [address] Dr. Na Gonzales SPEC GRAVITY 1.005 Normal 1.005-<=1.02 5 [facility] Comment on above: Performed By: #### U AMIC #### [facility] [address] [place] [address] Dr. Na Gonzales UA PROTEIN Negative Normal NEGATIVE/ TRACE [facility] Comment on above: Performed By: #### U AMIC #### [facility] [address] [place] [address] Dr. Na Gonzales Urobilinogen Qn (U) 0.2 {Irene'U}/dL Normal 0.2 - 1.0 [facility] Comment on above: Performed By: #### U AMIC #### [facility] [address] [place] [address] Dr. Na Gonzales WBC 0-2 Abnormal NONE SEEN [facility] Comment on above: Performed By: #### U AMIC #### [facility] [address] [place] [address] ABD/PELVIS WO CONon [...] DEMETRIS PATEL Date: 2021-04-06 18:26 Normal [facility] CULTURE STOOLon 02-22-2021 CULTURE STOOL Culture Observations : SALMONELLA CALD TO EDNA FELIX LPN@1225/02/21/21/RK Culture Observations: SALMONELLA CALD TO [facility]@1230/02/21/21/RK Culture Observations: SENDING ISOLATE TO [facility] FOR SEROTYPING Isolate 1 Salmonella enterica ssp enterica Heavy growth of ORGANISM 1 Salmonella enterica ssp enterica ANTIBIOTIC M.I.C RX STATUS Ampicillin <=2 S F Ceftazidime <=1 S F Ceftriaxone <=1 S F Ciprofloxacin <=0.25 S F Levofloxacin <=0.12 S F Trimethoprim/Sulfamethoxazole <=20 S F Normal [facility] Comment on above: Performed By: #### S TOOLCX #### [facility] [address] [place] [address] Dr. Na Gonzales CLOSTRIDIUM DIFFICILE PCRon 02-21-2021 C difficile Toxin Gene SHADI Negative Normal Negative [facility] Comment on above: Performed By: #### C TERRANCE #### [facility] [address] [place] [address] Dr. Na Gonzales Vital Signs Date Time Vital Sign Value Performing Clinician Facility 01-27-2024 15:15-0400 Blood [facility] 01-27-2024 15:15-0400 Diastolic blood pressure 82 mm[Hg] [facility] 01-27-2024 15:15-0400 Heart rate 76 /min [facility] 01-27-2024 15:15-0400 Respiratory rate 16 /min [facility] 01-27-2024 15:15-0400 Systolic blood pressure 120 mm[Hg] [facility] 12-23-2023 14:36-0400 Body height 167.64 cm [facility] 12-23-2023 14:36-0400 Body mass index (BMI) [Ratio] 35.2 kg/m2 [facility] 12-23-2023 14:36-0400 Body weight 98.93 kg [facility] 12-23-2023 14:36-0400 Diastolic blood pressure 86 mm[Hg] [facility] 12-23-2023 14:36-0400 Heart rate 98 /min [facility] 12-23-2023 14:36-0400 Respiratory rate 12 /min [facility] 12-23-2023 14:36-0400 Systolic blood pressure 141 mm[Hg] [facility] 09-25-2022 13:20-0400 Body height 167.6 cm Yolanda Gutierrez MD Work Phone: [facility] 09-25-2022 13:20-0400 Body weight 100.7 kg Yolanda Gutierrez MD Work Phone: [facility] 08-26-2022 14:30-0400 Body height 166.37 cm Peter Ball Other [facility] Other 08-26-2022 14:30-0400 Body mass index (BMI) [Ratio] 36.44 kg/m2 Peter Ball Other [facility] Other 08-26-2022 14:30-0400 Body weight 100.88 kg Peter Ball Other [facility] Other 08-26-2022 14:30-0400 Diastolic blood pressure 78 mm[Hg] Peter Ball Other [facility] Other 08-26-2022 14:30-0400 Respiratory rate 12 /min Peter Ball Other [facility] Other 08-26-2022 14:30-0400 Systolic blood pressure 122 mm[Hg] Peter Ball Other [facility] Other Encounters Encounter Date Encounter Type Care Provider Facility Start: 03-24-2024 End: 03-24-2024 ambulatory Cristian J[facility]ILLOL [facility] Start: 03-24-2024 End: 03-24-2024 Patient encounter procedure Cristian R NILL [facility] Start: 03-03-2024 End: 03-03-2024 ambulatory Cristian R NILL Facility:CD:[id number] Start: 01-27-2024 End: 01-27-2024 ambulatory PETER RUSH Facility: [facility] Start: 01-27-2024 End: 01-27-2024 Patient encounter procedure Cristian R NILL [facility] Start: 12-26-2023 ambulatory Cristian JARAMILLOL Facility:[facility] Start: 12-23-2023 End: 12-23-2023 ambulatory [facility] Work Phone: Start: 12-23-2023 End: 12-23-2023 Patient encounter procedure Count Includes [facility] Physician [facility] Work Phone: Start: 07-02-2023 End: 07-02-2023 ambulatory Peter Rush Other [facility] Other Start: 07-02-2023 Telephone encounter Peter ARELLANO [facility] Start: 09-26-2022 End: 09-27-2022 ambulatory YOLANDA GUTIERREZ Facility:[facility] Start: 09-26-2022 End: 09-26-2022 Subsequent hospital visit by physician Brittany [facility] 2 Work Phone: [facility] Radiology Ultrasound Comment on above: Polyp of colon, unsp ecified part of colon, unspecified type [K63.5] Start: 09-25-2022 End: 09-25-2022 ambulatory YOLANDA GUTIERREZ Facility:[facility] Start: 09-25-2022 End: 09-25-2022 Patient encounter procedure Yolanda Gutierrez MD Work Phone: Gastroenterology Comment on above: Polyp of colon, unsp ecified part of colon, unspecified type (Primary Dx); Liver hemangioma Start: 08-31-2022 End: 08-31-2022 ambulatory Peter Rush Other [facility] Other Start: 08-31-2022 Telephone encounter Peter ARELLANO [facility] Start: 08-26-2022 End: 08-26-2022 ambulatory Peter Rush Other [facility] Other Start: 08-26-2022 Patient encounter procedure Peter CHARLES [facility] Start: 01-11-2022 End: 01-12-[address] PETER RUSH Facility:[facility] Start: 04-06-2021 End: 04-07-[address] PETER RUSH Facility:[facility] Start: 02-20-2021 End: 02-20-[address] PETER RUSH Facility: Start: 04-04-2020 Adult health examination Peter Rush Other [facility] Other Procedures Date Procedure Procedure Detail Performing Clinician Start: 03-03-2024 Colonoscopy Cristian NILL Start: 03-03-2024 Esophagogastroduodenoscopy Cristian NILL Start: 09-26-2022 Us abdominal real time w/image limited Yolanda Gutierrez MD Work Phone: Start: 06-09-2013 Colonoscopy Yolanda Gutierrez MD Work Phone: Start: 06-09-2013 Colonoscopy Cristian NILL Start: 06-09-2013 Esophagogastroduodenoscopy Cristian NILL Cholecystectomy Cristian NILL Cystoscopy Cristian NILL Depression screening Julianna Rush Other Excision of hemangioma [place] Excision of lesion of liver Cristian NILL History of operative procedure on lumbar spinal structure Cristian NILL Lobectomy of lung Cristian NI LL Total abdominal hyst erectomy with bilateral salpingo-oophorectomy Cristian NILL Plan of Treatment Date Care Activity Detail Author Start: 09-26-2025 Diabetes Screening Diabetes Screenin g [facility] Start: 06-09-2023 Colonoscopy COLONOSCOPY [facility] Start: 06-09-2023 COLORECTAL CANCER SCREENING COLORECTAL CANCER SCREENING [facility] Start: 01-24-2023 Covid-19 Vaccine ( season) Covid-19 Vaccine () [facility] Start: 01-24-2023 Influenza vaccination Influenza Vacc ine (#1) [facility] Start: 09-25-2022 End: 11-25-2022 CBC W Auto Differential panel - Blood CBC + DIFF Lab Routine Polyp of colon, unspecified part of colon, unspecified type Liver hemangioma Expected: 09/25/2022, Expires: 11/25/2022 [facility] Work Phone: Comment on above: Expected: 09/25/2022 , Expires: 11/25/2022 Start: 09-25-2022 End: 11-25-2022 Comprehensive metabolic 2000 panel - Serum or Plasma COMP METABOLIC PANEL Lab Routine Polyp of colon, unspecified part of colon, unspecified type Liver hemangioma Expected: 09/25/2022, Expires: 11/25/2022 [facility] Work Phone: Comment on above: Expected: 09/25/2022 , Expires: 11/25/2022 Start: 2022 ADVANCE DIRECTIVE DISCUSSION ADVANCE DIRECTIVE DISCUSSION [facility] Start: 2022 BONE DENSITY BONE DENSITY [facility] Start: 2022 Bone Density Screening Bone Density Screening [facility] Start: 2022 Pneumococcal Vaccine : 65+ (1 - PCV) Pneumococcal Vaccine: 65+ (1 - PCV) [facility] Start: 2022 PNEUMOCOCCAL: 65+ (1 - PCV) PNEUMOCOCCAL: 65+ (1 - PCV) [facility] Start: 05-26-2022 DEPRESSION ASSESSMENT DEPRESSION ASS ESSMENT [facility] Start: 09-29-2020 COVID-19 VACCINE (2 - Booster for Roe series) COVID-19 VACCINE (2 - Booster for Roe series) [facility] Start: 04-26-2018 DIABETES SCREEN DIABETES SCREEN [facility] Start: 2017 RSV Vaccine (1 - 1-d ose 60+ series) RSV Vaccine (1 - 1-dose 60+ series) [facility] Start: 2007 SHINGRIX VACCINE (1 of 2) SHINGRIX VACCINE (1 of 2) [facility] Start: 2002 COLOGUARD (FIT-DNA) COLOGUARD (FIT-D NA) [facility] Start: [address] COLONOGRAPHY [facility] Start: 2002 FECAL OCCULT BLOOD FECAL OCCULT BLOO D [facility] Start: 2002 Lipid 1996 panel - S fernando or Plasma Lipid Screening [facility] Start: 2002 LIPID SCREEN LIPID SCREEN [facility] Start: 2002 SIGMOIDOSCOPY SIGMOIDOSCOPY [facility] Start: 1997 Mammography [facility] Start: 1976 Urine microalbumin profile [facility] Start: 1975 HEPATITIS C SCREENING HEPATITIS C SC REENING [facility] Start: 1975 HIV SCREENING HIV SCREENING [facility] End: 09-26-2023 COLONOSCOPY DIAGNOSTIC COLONOSCOPY DIAGNOSTIC Endoscopy Routine Polyp of colon, unspecified part of colon, unspecified type Liver hemangioma 1 Occurrences starting 09/25/2022 until 09/26/2023 [facility] Work Phone: Comment on above: 1 Occurrences starti ng 09/25/2022 until 09/26/2023 End: 10-25-2023 US ABD RIGHT UPPER QUADRANT US ABD RIGHT UPPER QUADRANT Radiology Routine Polyp of colon, unspecified part of colon, unspecified type Liver hemangioma 1 Occurrences starting 09/25/2022 until 10/25/2023 [facility] Work Phone: Comment on above: 1 Occurrences starti ng 09/25/2022 until 10/25/2023 XR Knee - right 4 Views [facility] Immunizations Immunization Date Immunization Notes Care Provider Berkley boland 04-09-2022 influenza, high dose seasonal, preservative-free Peter Rush Other [employer] [facility] Other 04-09-2022 influenza virus vaccine, split virus (incl. purified surface antigen) Peter Rush Other [employer] [facility] Other 04-09-2022 influenza virus vaccine, unspecified formulation Ultra 2 Work Phone: [facility] 03-24-2021 influenza virus vaccine, split virus (incl. purified surface antigen) Peter Rush Other [employer] Other 03-24-2021 influenza virus vaccine, unspecified formulation [facility] 03-12-2021 COVID-19 Vaccine Roe - Documentation Purposes Only Peter Rush Other [facility] 02-23-2017 tetanus and diphther ia toxoids, adsorbed, preservative free, for adult use (5 Lf of tetanus toxoid and 2 Lf of diphtheria toxoid) Peter Rush Other [facility] 03-15-2016 tetanus and diphther ia toxoids, adsorbed, preservative free, for adult use (5 Lf of tetanus toxoid and 2 Lf of diphtheria toxoid) Peter Rush Other [facility] Payers Date Payer Category Payer Unknown [id number] 2022 Unknown MMO MMO MEDICARE SUPPLEMENT [id number] 2022-Present [phone] [address] [place] [address] Indemnity [id number] 2022 Medicare [id number] 2022 Medicare MEDICARE MEDICAR E A AND B [id number] 2022-Present [phone] [address] [address] [place] [address] Medicare [id number] 1959 Unknown [id number] 1955 Unknown [id number] 1955 Unknown [id number] 1955 Unknown [id number] 1955 Unknown [id number] 1955 Unknown [id number] 1955 Unknown [id number] Private Health Insurance [facility]ly [facility] [employer] [id number] Social History Date Type Detail Facility Start: 09-02-2018 End: 09-25-2022 Sex Assigned At [facility] Start: 08-24-2013 End: 03-23-2024 Tobacco smoking status NVIS Never smoked tobacco [facility] Start: 08-24-2013 Tobacco use and exposure Smokeless tobacco non-user [facility] Start: 09-02-2018 Alcohol intake Current drinke r of alcohol (finding) [facility] Start: 08-24-2013 Alcohol Comment occ. [facility] Start: 1955 Sex Assigned At Female C [facility] Start: 09-02-2018 End: 09-25-2022 History of Social function [facility] National Score (1-100), lower number is lower risk 67 [facility] Start: 04-11-2021 Gender identity Identifies as female gender (finding) [facility] Start: 11-24-2023 Tobacco smoking stat us NVIS Ex-smoker (finding) [facility] Medical Equipment Procedure Code Equipment Code Equipment Origin al Text Equipment Identifier Dates Vms-Sh-L-Kind Implant - Crushed Cancellous 15cc [id number] Start: 07-19-2016 Comment on above: Description: ONE-OF- A-KIND IMPLANT - Crushed Cancellous 15cc. Brought into room at 0840. Handed sterily to field by Donovan Christensen RN to Abigail Hayes [employer] at 1015. Also handled by Moe Ulrich MD, and Abigail Carey MD. No preparation required. Plate Lcp Long T Stainless Steel 61mm Bone 2 Hole Variable Angle Fusion - [id number] Start: 07-19-2016 Screw Lcp 2.7mm T8 Stainless Steel 22mm Bone Variable Angle Lock Self Tap - [id number] Start: 07-19-2016 Washer Surfix 3.5mm Stainless Steel Orthopedic Lock Midfoot - [id number] Start: 07-19-2016 Functional Status Date Assessment Result Facility 03-24-2024 Functional Status N/A [facility] [place] 01-27-2024 Functional Status N/A [facility] [place] Clinical Notes 08-26-2022 to 01-27-2024 Patient InstructionsYolanda [...] hemangioma, and SALOME with bso; last colonoscopy 2013, wnl; EGD in 2013 with fundic gland polyps; patient on omeprazole [...] Status SARS-CoV-2 (COVID-19) Ad26 vaccine 08/04/2020 Recorded [facility] Comment on above: Result Comment: Elec tronically [...] If you do not have a responsible driver/merchandiser (family member or friend) with you to [...] at your local pharmacy or drugstore pharmacy. 04/2019 Bowel Preparation Instructions for: Golytely, Nulytely, [...] If you do not have a responsible driver/merchandiser (family member or friend) with you to take you home, your exam cannot be done with sedation and will be cancelled. Please bring a list of all of your current medications, including any Tfzq-hko-Mjsytol medications with you. Medications If you take [...] exam. 2 04/2019 documented in this encounter [facility] 09-25-2022 History and physical note Hepatology [facility] consult by Dr Rush for liver lesions [...] cc dr Rush documented in this encounter [facility] 08-31-2022 Evaluation note Encounter Date Diagnosis Assessment Notes Aug, Menopause (ICD-10 - Z78.0) [facility] Other 04-03-2023 Evaluation note* Encounter Date Diagnosis [...] and consequences of not detecting early cancer [facility] Other Evaluation + Plan note No data available for this section [facility] Evaluation note* Diagnosis Polyp of colon, unspecified part of colon, unspecified type- Primary Liver hemangioma Hemangioma of intra-abdominal structures documented in this encounter [facility] Diagnosis Polyp of colon, unspecified part of colon, unspecified type Liver hemangioma Hemangioma of intra-abdominal structures documented in this encounter [facility]No [facility] Other Evaluation note* Diagnosis Onset Date Resolution Status Cavernous hemangioma of liver acute Knee pain, bilateral acute Menopause acute Obesity acute [facility] Medicare annual wellness visit, initial noneactive Screening mammogram for breast cancer noneactive [facility] Work Phone: History general Narrative - Reported* Type Description Date Medical History frequent UTI Medical History hysterectomy Medical History Atrophic vaginitis Medical History History of nephrolithiasis Medical History Salmonella gastroenteritis Medical History Diarrhea Medical History Cavernous hemangioma of liver Surgical History hysterectomy Surgical History bilateral foot surgeries Surgical History CYSTOSCOPY 2013 Surgical History COLONSCOPY 2014 Hospitalization History hysterectomy Hospitalization History c section, childbirth [facility] Other Hospital Discharge instructions No data available for this section [facility] [place] Progress note No data available for this section [facility] [place] Reason for referral (narrative)* Outpatient Procedure (Routine) - Authorized Specialty Diagnoses / Procedures Referred By Ernst brery Referred To Contact [facility] Diagnoses Polyp of colon, unspecified part of colon, unspecified type Liver hemangioma Procedures COLONOSCOPY DIAGNOSTIC COLONOSCOPY FLX DX W/COLLJ SPEC WHEN PFRMD Yolanda Stafford MD [address] [place] [address] [facility] [place] [address] Referral ID Status Reason Start Date Expiration Date Visits Requested Visits Authorized [id number] Authorized Auto-Generat ed Referral 09/25/2022 09/26/2023 1 1 * Diagnostic Procedure Only (Routine) - Authorized Specialty Diagnoses / Procedures Referred By Ernst berry Referred To Contact US IMAGING Diagnoses Polyp of colon, unspecified part of colon, unspecified type Liver hemangioma Procedures US ABD RIGHT UPPER QUADRANT US ABDOMINAL REAL TIME W/IMAGE LIMITED Yolanda Stafford MD [address] [place] [address] [facility] Imaging Referral ID Status Reason Start Date Expiration Date Visits Requested Visits Authorized [id number] Authorized Auto-Generat ed Referral 09/25/2022 10/25/2023 1 1 [facility] for referral (narrative)* Diagnostic Procedure Only (Routine) - Closed Specialty Diagnoses / Procedures Referred By Ernst berry Referred To Contact US IMAGING Diagnoses Polyp of colon, unspecified part of colon, unspecified type Liver hemangioma Procedures US ABD RIGHT UPPER QUADRANT US ABDOMINAL REAL TIME W/IMAGE LIMITED Yolanda Stafford MD [address] [place] [address] [place] [facility] [place] [facility] Referral ID Status Reason Start Date Expiration Date V isits Requested Visits Authorized [id number] Closed Auto-Generate d Referral 09/25/2022 10/25/2023 1 1 [facility] for visit Narrative* Diagnostic Procedure Only (Routine) - Closed Specialty Diagnoses / Procedures Referred By Contac t Referred To Contact US IMAGING Diagnoses Polyp of colon, unspecified part of colon, unspecified type Liver hemangioma Procedures US ABD RIGHT UPPER QUADRANT US ABDOMINAL REAL TIME W/IMAGE LIMITED Yolanda Stafford MD [address] [place] [address] Us Imaging [place] [address] Referral ID Status Reason Start Date Expiration Date V isits Requested Visits Authorized [id number] Closed Auto-Generate d Referral 09/25/2022 10/25/2023 1 1 [facility] Summary Purpose Family History No Family History Records Found Relationship Condition Age at Onset Recorded Date/T rakan brother Asthma Unknown father Malignant neoplasm Unknown Family history of lung cancer Unknown mother Family history of mental disorder Unknown Advance Directives No Advanced Directives Records FoundDocuments on File Type Date Recorded Patient Health Program Director Expl anation Advance Directive(s) 10/13/2013 10:12 PM [...] and content) DATE CREATED AUTHOR 01/17/2022 [facility] DATE CREATED AUTHOR AUTHOR'S ORGANIZ ATION 09/27/2022 [facility] DATE CREATED AUTHOR AUTHOR'S ORGANIZ ATION 10/04/2022 [facility] DATE CREATED AUTHOR AUTHOR'S ORGANIZ ATION 03/26/2024 [facility] REASON FOR VISIT (unrecogniz ed section and content) Reason Comments New Patient Source Comments (unrecognize d section and content) In the event this informatio n is protected by the Federal Confidentiality of Alcohol and Drug Abuse Patient Records regulations: The Federal rules restrict any use of the information to criminally investigate or prosecute any alcohol or drug abuse patient.[facility] the event this information is protected by the Federal Confidentiality of Alcohol and Drug Abuse Patient Records regulations: The Federal rules restrict any use of the information to criminally investigate or prosecute any alcohol or drug abuse patient.[facility] Care Teams (unrecognized sec tion and content) [employer] Relationship Specialty Start Date End Date Peter Rush DO PCP - General Internal Medicine 09/11/12 [employer] Relationship Specialty Start Date End Date Peter [...] BE BASED ON THE PRIMARY CLINICAL RECORDS. [facility] Cater to u [facility]. provides no warranty or guarantee of the accuracy or completeness of information in this document.
== END 2024-06-15 09:11 | disposition home or self-care (01) ==
LOC: RAD 09:10
PROVIDERS: PCP Internal Medicine; Visit Provider Podiatrist Foot & Ankle Surgery
DX: M79.672 Pain in left foot (principal)
CPT/HCPCS: 73630

== ENCOUNTER 2024-06-21 08:37 | Outpatient (OUT) | payer MEDICARE, OTHER, SELFPAY ==
--- NOTE | 2024-06-21 08:39 | XR_ITS ---
The [address] [address] Patient Name: RADHA REED MRN: [id number] date: 1955 Sex: F Assigned Patient Location: CT Current Patient Location: CT Accession/Order Number: [id number] Exam Date: 06/21/2024 08:45 Report Date: 06/21/2024 10:13 At the request of: RATNA CHOU Procedure: XR DEXA axial skeleton EXAMINATION: XR DEXA axial skeleton HISTORY: Pain In Left Foot COMPARISON: No relevant comparison available. TECHNIQUE: Dual-energy X-ray absorptiometry (DXA) was performed. FINDINGS: HIP ANALYSIS: Lowest bone mineral density is within the right femoral neck, 0.926 g/cm2. T-score (standard deviation relative to young adult mean): -0.8 . XR/XR DEXA axial skeleton IMPRESSION: World Health Organization Classification: Normal - Low Fracture Risk FRAX: Cannot be calculated. Pharmacologic treatment recommendations * No uniform recommendation applies to all patients. Management plans must be individualized. * Consider initiating pharmacologic treatment in postmenopausal women and men >= 50 years of age who have the following: Primary fracture prevention: * T-score <= - 2.5 at the femoral neck, total hip, lumbar spine, 33% radius (some uncertainty with existing data) by DXA. * Low bone mass (osteopenia: T-score between - 1.0 and - 2.5) at the femoral neck or total hip by DXA with a 10-year hip fracture risk >= 3% or a 10-year major osteoporosis-related fracture risk >= 20% (i.e., clinical vertebral, hip, forearm, or proximal humerus) based on the [place]-adapted FRAXregistered model. Secondary fracture prevention: * Fracture of the hip or vertebra regardless of BMD [4, 5]. * Fracture of proximal humerus, pelvis, or distal forearm in persons with low bone mass (osteopenia: T-score between - 1.0 and - 2.5). The decision to treat should be individualized in persons with a fracture of the proximal humerus, pelvis, or distal forearm who do not have osteopenia or low BMD [12, 13]. Chris MS, Nesha SL, Chloé BAER, Himanshu EM, Christopher KG, AJ, Arabella ES. The clinician's guide to prevention and treatment of osteoporosis. Osteoporos Int. 2021;33(10):0165-2601. doi: 10.1007/s87175-110-81077-n. Epub 2021Sep 20. Erratum in: Osteoporos Int. 2021Dec 20;: PMID: 76347142; PMCID: [id number]. Electronically authenticated by: CHAI SANDERS Date: 06/21/2024 10:13
--- NOTE | 2024-06-21 08:41 | CT_ITS ---
The [address] [address] Patient Name: RADHA REED MRN: [id number] date: 1955 Sex: F Assigned Patient Location: CT Current Patient Location: CT Accession/Order Number: [id number] Exam Date: 06/21/2024 08:45 Report Date: 06/21/2024 12:34 At the request of: RATNA CHOU Procedure: CT foot LT wo con CT scan of the left foot and ankle 06/21/2024. HISTORY: Left foot pain. Evaluate for arthritis. COMPARISON: Radiographs left foot 06/15/2024. TECHNIQUE: Multiple continues axial CT images of the left foot and ankle were obtained without contrast. Sagittal and coronal reformatted images were made. Dose reduction techniques were achieved by using automated exposure control and/or adjustment of mA and/or kV according to patient size and/or use of iterative reconstruction technique. FINDINGS: There is a large plantar calcaneal enthesophyte. There is also a small enthesophyte at the Achilles tendon insertion. There are moderate to severe degenerative changes at the articulation of the navicular with the medial cuneiform bone and there are mild degenerative changes at its articulation with the middle and lateral cuneiform bones. There are severe degenerative changes of the second and third tarsometatarsal joints with severe joint space narrowing, marginal osteophyte formation and adjacent subchondral cystic change. No fracture or dislocation is seen. No osseous erosions are identified. There is no significant soft tissue swelling. CT/CT foot LT wo con IMPRESSION: 1. 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 2. Moderate to severe degenerative change at the articulation of the navicular with the medial cuneiform bone and mild degenerative changes at its articulation with the middle and lateral cuneiform bones. 3. Calcaneal enthesopathy. Electronically authenticated by: EVETTE BRONSON Date: 06/21/2024 12:34
--- OUTSIDE RECORDS SUMMARY | 2024-06-21 08:54 | XMS_ITS | CCD ---
Author Organization [facility] Care Team Providers Care Music Arranger Name Role Phone VICTOR MANUEL, DR COBIAN [...] Care Unavailable PETER RUSH Primary Care Physician Cristian CINTRON Attending Unavailable BALL, PETER Referring Unavailable NILL, Cristian Hanson Attending Unavailable NILL, Cristian Hanson Attending Unavailable Allergies Allergy Classification Reported Allergen(s) Allergy Type Date of Onset Reaction(s) Facility (4 sources) Morphine; Translations: [MORPHINE] Drug Allergy 3 [facility] (7 sources) Morphine; Translations: [morphine] Drug Allergy 3 Other: See Comments, Patient reported problems (finding) [facility] (3 sources) Latex; Translations: [LATEX] Drug Allergy [address] [facility] (1 source) patient allergy list reviewed by nurse or physicia Propensity to adverse reactions 8 Comment:Done [employer] Other Medications Current Medications Medication Drug Class(es) [...] tw o times a week. estrogens, conjugated (skilled nursing) 0.625 mg/ml vaginal cream (3 sources) Estrogen [...] Date: 03/18/24 Status: Ordered polyethylene glycol 3350 416918 mg / potassium chloride 2970 mg / sodium bicarbonate 6740 mg / sodium chloride 5860 mg / sodium sulfate 73867 mg powder for oral solution (1 source) [...] choosing us for your care. Normal [facility] General Surgery Office/Clini c Noteon 03-24-2024 General [...] SARS-CoV-2 (COVID-19) Ad26 vaccine 08/04/2020 Recorded Normal [facility] Comment on above: Result Comment: Elec tronically Signed By: ABDULAZIZ WILSON, Cristian Doshi\Date and Time Signed: 03/24/24 16:23 EDT Reminderson 03-04-2024 Reminders Reminders From: Patti Douglas LPN To: GSN - Clinical; Sent: 03/04/2024 14:13:04 EDT Show up: 02/01/2034 07:00:00 EDT Subject: colonoscopy recall Due Date/Time: 03/03/2034 07:00:00 EDT Reminder/Recall Patient due for screening colonoscopy 03/03/2034. Normal [facility] CBC W Auto Differential pane l (Bld)on 09-26-2022 Basophils (Bld) [#/Vol] 0.04 10*3/uL Normal <0.11 [facility] Comment on above: Order Comment: Speci men Type: BLOOD SPECIMEN [facility] Address: [address] [address] Performed By: #### 5 7021-8 #### [facility] CLIA [id number] [address] [place] [address] [place] Basophils/100 WBC (Bld) 0.7 % Normal [facility] Comment on above: Order Comment: Speci men Type: BLOOD SPECIMEN Ordering Facility: [facility] Address: [address] [place] [address] Performed By: #### 5 7021-8 #### [facility] CLIA [id number] [facility] [place] [address] [place] Differential cell count method Nom (Bld) Auto Normal [facility] Comment on above: Order Comment: Speci men Type: BLOOD SPECIMEN [facility]ing Facility: [facility] Address: [address] [address] Performed By: #### 5 7021-8 #### [facility] CLIA [id number] [address] [place] [address] [place] Eosinophils (Bld) [#/Vol] 0.04 10*3/uL Normal <0.46 [facility] Comment on above: Order Comment: Speci men Type: BLOOD SPECIMEN [facility]ing Facility: [facility] Address: [address] [address] Performed By: #### 5 7021-8 #### [facility] CLIA [id number] [address] [place] [address] [place] Eosinophils/100 WBC (Bld) 0.7 % Normal [facility] Comment on above: Order Comment: Speci men Type: BLOOD SPECIMEN [facility]ing Facility: [facility] Address: [address] [address] Performed By: #### 5 7021-8 #### [facility] CLIA [id number] [address] [place] [address] [place] Erythrocyte distribution width (RBC) [Ratio] 12.2 % Normal 11.5-15.0 [facility] Comment on above: Order Comment: Speci men Type: BLOOD SPECIMEN [facility]ing [facility] Address: [address] [address] Performed By: #### 5 7021-8 #### [facility] CLIA [id number] [address] [place] [address] [place] Hematocrit (Bld) [Volume fraction] 43.6 % Normal 36.0-46.0 [facility] Comment on above: Order Comment: Speci men Type: BLOOD SPECIMEN [facility]ing [facility]: [facility] Address: [address] [address] Performed By: #### 5 7021-8 #### [facility] CLIA [id number] [address] [place] [address] [place] Hemoglobin (Bld) [Mass/Vol] 14.4 g/dL Normal 11.5-15.5 [facility] Comment on above: Order Comment: Speci men Type: BLOOD SPECIMEN [facility]ing [facility]: [facility] Address: [address] [address] Performed By: #### 5 7021-8 #### [facility] CLIA [id number] [address] [place] [address] [place] Immature granulocytes (Bld) [#/Vol] 10*3/uL Normal <0.10 [facility] Comment on above: Order Comment: Speci men Type: BLOOD SPECIMEN [facility] Address: [address] [address] Performed By: #### 5 7021-8 #### [facility] CLIA [id number] [address] [place] [address] [place] Immature granulocytes/100 WBC (Bld) 0.3 % Normal [facility] Comment on above: Order Comment: Speci men Type: BLOOD SPECIMEN [facility] Address: [address] [address] Performed By: #### 5 7021-8 #### [facility] [place] [id number] [address] [place] [address] [place] Lymphocytes (Bld) [#/Vol] 1.48 10*3/uL Normal 1.00-4.00 [facility] Comment on above: Order Comment: Speci men Type: BLOOD SPECIMEN Ordering Facility: [facility] Address: [address] Performed By: #### 5 7021-8 #### [facility] [place] [id number] [address] [place] [address] [place] Lymphocytes/100 WBC (Bld) 25.8 % Normal [facility] Comment on above: Order Comment: Speci men Type: BLOOD SPECIMEN Ordering Facility: [facility] Address: [address] Performed By: #### 5 7021-8 #### [facility] IA [id number] [address] [place] [address] [place] MCH (RBC) [Entitic mass] 30.5 pg Normal 26.0-34.0 [facility] Comment on above: Order Comment: Speci men Type: BLOOD SPECIMEN Ordering Facility: [facility] Address: [address] [id number] Performed By: #### 5 7021-8 #### [facility] [place] [id number] [place] MCHC (RBC) [Mass/Vol] 33.0 g/dL Normal 30.5-36.0 [facility] Comment on above: Order Comment: Speci men Type: BLOOD SPECIMEN Ordering Facility: [facility] Address: [address] Performed By: #### 5 7021-8 #### [facility] IA [id number] [address] [place] [address] [place] MCV (RBC) [Entitic vol] 92.4 fL Normal 80.0-100.0 [facility] Comment on above: Order Comment: Speci men Type: BLOOD SPECIMEN Ordering Facility: [facility] Address: [address] Performed By: #### 5 7021-8 #### [facility] IA [id number] [place] [address] [place] Monocytes (Bld) [#/Vol] 0.55 10*3/uL Normal <0.87 [facility] Comment on above: Order Comment: Speci men Type: BLOOD SPECIMEN Ordering Facility[facility] Address: [address] [address] Performed By: #### 5 7021-8 #### [facility] [place] [id number] [address] [place] [address] [place] Monocytes/100 WBC (Bld) 9.6 % Normal [facility] Comment on above: Order Comment: Speci men Type: BLOOD SPECIMEN Ordering Facility: [facility] Address: [address] Performed By: #### 5 7021-8 #### [facility] IA [id number] [address] [place] [address] [place] Neutrophils (Bld) [#/Vol] 3.61 10*3/uL Normal 1.45-7.50 [facility] Comment on above: Order Comment: Speci men Type: BLOOD SPECIMEN Ordering [facility] Address: [address] [address] Performed By: #### 5 7021-8 #### [facility] CLIA [id number] [place] Neutrophils/100 WBC (Bld) 62.9 % Normal [facility] Comment on above: Order Comment: Speci men Type: BLOOD SPECIMEN Order[facility] Address: [address] [address] Performed By: #### 5 7021-8 #### [facility] CLIA [id number] [address] [place] [address] [place] Nucleated RBC (Bld) [#/Vol] 10*3/uL Normal <0.01 [facility] Comment on above: Order Comment: Speci men Type: BLOOD SPECIMEN [facility] Address: [address] [address] Performed By: #### 5 7021-8 #### [facility] IA [id number] [address] [place] [address] [place] Nucleated RBC/100 WBC (Bld) [Ratio] 0.0 /100 WBC Normal [facility] Comment on above: Order Comment: Speci men Type: BLOOD SPECIMEN Ordering [facility] Address: [address] Performed By: #### 5 7021-8 #### [facility] CLIA [id number] [address] [place] [address] [place] Platelet mean volume (Bld) [Entitic vol] 9.2 fL Normal 9.0-12.7 [facility] Comment on above: Order Comment: Speci men Type: BLOOD SPECIMEN [facility] Address: [address] [address] Performed By: #### 5 7021-8 #### [facility] CLIA [id number] [address] [place], [place] [id number] [place] [address] [place] Platelets (Bld) [#/Vol] 267 10*3/uL Normal 150-400 [facility] Comment on above: Order Comment: Speci men Type: BLOOD SPECIMEN Order[facility] Address: [address] [place] [address] Performed By: #### 5 7021-8 #### [facility] CLIA [id number] [address] [place] [address] [place] RBC (Bld) [#/Vol] 4.72 10*6/uL Normal 3.90-5.20 [facility] Comment on above: Order Comment: Speci men Type: BLOOD SPECIMEN [facility] Address: [address] [place] [address] Performed By: #### 5 7021-8 #### [facility] CLIA [id number] [address] [place] [address] [place] WBC (Bld) [#/Vol] 5.74 10*3/uL Normal 3.70-11.00 [facility] Comment on above: Order Comment: Speci men Type: BLOOD SPECIMEN Order[facility] Facility[facility] Address: [address] [place], [place] [address] Performed By: #### 5 7021-8 #### [facility] CLIA [id number] [address] [place] [address] [place] [facility] [place] Comprehensive metabolic 2000 panelon 09-26-2022 Albumin [Mass/Vol] 4.6 g/dL Normal 3.9-4.9 [facility] Comment on above: Order Comment: Speci men Type: BLOOD SPECIMEN Ordering [facility] Address: [address] [place] [address] Performed By: #### 2 4323-8 #### [facility] CLIA [id number] [address] [id number] [facility] [place] ALP [Catalytic activity/Vol] 89 U/L Normal 34-123 [facility] Comment on above: Order Comment: Speci men Type: BLOOD SPECIMEN [facility] Address: [address] [address] Performed By: #### 2 4323-8 #### [facility] CLIA [id number] [address] [place] [address] [place] ALT [Catalytic activity/Vol] 28 U/L Normal 7-38 [facility] Comment on above: Order Comment: Speci men Type: BLOOD SPECIMEN [facility] Address: [address] [address] Performed By: #### 2 4323-8 #### [facility] CLIA [id number] [address] [place] [address] [place] Anion gap [Moles/Vol] 9 mmol/L Normal 9-18 [facility] Comment on above: Order Comment: Speci men Type: BLOOD SPECIMEN [facility] Address: [address] [address] Performed By: #### 2 4323-8 #### [facility] CLIA [id number] [address] [place] [address] [place] AST [Catalytic activity/Vol] 21 U/L Normal 13-35 [facility] Comment on above: Order Comment: Speci men Type: BLOOD SPECIMEN [facility] Address: [address] [address] Performed By: #### 2 4323-8 #### [facility] CLIA [id number] [address] [place] [address] [place] Bilirubin [Mass/Vol] 0.5 mg/dL Normal 0.2-1.3 [facility] Comment on above: Order Comment: Speci men Type: BLOOD SPECIMEN [facility] Address: [address] [address] Performed By: #### 2 4323-8 #### [facility] CLIA [id number] [address] [place] [address] [place] Calcium [Mass/Vol] 9.7 mg/dL Normal 8.5-10.2 [facility] Comment on above: Order Comment: Speci men Type: BLOOD SPECIMEN [facility] Address: [address] [address] Performed By: #### 2 4323-8 #### [facility] CLIA [id number] [address] [place] [address] [place] Chloride [Moles/Vol] 104 mmol/L Normal 97-105 [facility] Comment on above: Order Comment: Speci men Type: BLOOD SPECIMEN Order[facility] Address: [address] [place] [address] Performed By: #### 2 4323-8 #### [facility] CLIA [id number] [address] [place] [address] [place] CO2 [Moles/Vol] 29 mmol/L Normal 22-30 [facility] Comment on above: Order Comment: Speci men Type: BLOOD SPECIMEN [facility] Address: [address] [place] [address] Performed By: #### 2 4323-8 #### [facility] CLIA [id number] [address] [place] [address] [place] Creatinine [Mass/Vol] 0.68 mg/dL Normal 0.58-0.96 [facility] Comment on above: Order Comment: Speci men Type: BLOOD SPECIMEN [facility] Address: [address] [place] [address] Performed By: #### 2 4323-8 #### [facility] CLIA [id number] [address] [place] ESTIMATED GLOMERULAR FILTRATION RATE 97 mL/min/1.73m??? Normal >=60 [facility] Comment on above: Order Comment: Speci men Type: BLOOD SPECIMEN [facility] Address: [address] [place] [address] Result Comment: Barbara mated Glomerular Filtration Rate [...] GFR. Performed By: #### 2 4323-8 #### [facility] CLIA [id number] [address] [place] [address] [place] Glucose [Mass/Vol] 98 mg/dL Normal 74-99 [facility] Comment on above: Order Comment: Vineet rinaldi Type: BLOOD SPECIMEN Order[facility] Address: [address] [address] Result Comment: The [place] [employer] (ADA) provides guidance for cutoff [...] Standards of Medical Care in Diabetes 2016, [place] [employer]. Diabetes Care. 2016.39(Suppl 1). Performed By: #### 2 4323-8 #### [facility] CLIA [id number] [address] [place] [address] [place] Potassium [Moles/Vol] 4.6 mmol/L Normal 3.7-5.1 [facility] Comment on above: Order Comment: Vineet rinaldi Type: BLOOD SPECIMEN [facility] Address: [address] [address] Performed By: #### 2 4323-8 #### [facility] CLIA [id number] [address] [place] [address] [place] Protein [Mass/Vol] 7.4 g/dL Normal 6.3-8.0 [facility] Comment on above: Order Comment: Vineet rinaldi Type: BLOOD SPECIMEN [facility] Address: [address] [address] Performed By: #### 2 4323-8 #### [facility] CLIA [id number] [address] [facility] [place] [address] [place] Sodium [Moles/Vol] 142 mmol/L Normal 136-144 [facility] Comment on above: Order Comment: Speci men Type: BLOOD SPECIMEN [facility] Address: [address] [address] Performed By: #### 2 4323-8 #### [facility] CLIA [id number] [address] [place], [place] [id number] [place] [address] [place] Urea nitrogen [Mass/Vol] 17 mg/dL Normal 7-21 [facility] Comment on above: Order Comment: Speci men Type: BLOOD SPECIMEN [facility] Address: [address] [address] Performed By: #### 2 4323-8 #### [facility] CLIA [id number] [address] [facility] [place], [place] [id number] [place] [address] [place] No Panel Informationon 09-[address] [facility] US ABD RIGHT UPPER QUADRANTo [...] and could represent the previously described hemangiomas. Tennis Camp Instructor: DARRELL Transcribe Date/Time: Oct 03 2022 6:03A Dictated by : NAS DENSON MD This examination was interpreted and the report reviewed and electronically signed by: NAS DENSON MD on Oct 03 2022 6:08AM EST [id number] [facility] US ABD SPLEEN -NBon 09-27-19 [...] and could represent the previously described hemangiomas. Tennis Camp Instructor: [facility] Transcribe Date/Time: Oct 03 2022 6:03A Dictated by : NAS DENSON MD This examination was interpreted and the report reviewed and electronically signed by: NAS DENSON MD on Oct 03 2022 6:08AM EST [id number] [facility] CNOVon 09-25-2022 CNOV Office Visit (GASTAV ) BETTINA REED ([id number]) 1955 F Date Time Provider Department 09/25/22 1:30 PM YOLANDA STAFFORD During your visit today, we recorded the following information about you: Weight Height 100.7 kg 1.676 m Yolanda Ta MD 09/25/2022 2:[address] [facility] consult by Dr Rush for liver [...] If you do not have a responsible trolley coach driver (family member or friend) with you [...] Imodium, Ka (more content not included)... Normal [facility] HISTORY PHYSICALon HISTORY PHYSICAL HNO ID: [id number] Author: Yolanda Gutierrez MD Service: ? Author Type: Physician Type: HANDP Filed: 09/25/2022 2:21 PM Note Text: Hepatology [facility] HPI consult by Dr Rush for liver [...] Walters MD cc dr Victor Manuel Ramires [facility] CULTURE URINEon 01-11-2022 CULTURE URINE Culture Observations : MODERATE GROWTH OF MIXED GENITAL JESUS. NO POTENTIAL PATHOGENS SEEN. Normal [facility] Comment on above: Performed By: #### U RCX #### [facility] [address] [address] [address] Na Gonzales UA RANDOM W/MICROSCOPICon BACTERIA NONE SEEN Normal NONE SEEN [facility] Comment on above: Performed By: #### U AMIC #### [facility] [address] [address] [address] Na Gonzales Bilirubin Ql (U) Negative Normal NEGATIVE [facility] Comment on above: Performed By: #### U AMIC #### [facility] [address] [address] [address] Na Gonzales CAST NONE SEEN Normal NONE SEEN [facility] Comment on above: Performed By: #### U AMIC #### [facility] [address] [place] [address] Dr. Na Gonzales Clarity (U) CLEAR Normal CLEAR [facility] Comment on above: Performed By: #### U AMIC #### [facility] [address] [address] [address] Na Gonzales Color (U) LT. YELLOW Normal YELLOW [facility] Comment on above: Performed By: #### U AMIC #### [facility] [address] [place] [address] Dr. Na Gonzales Crystals LM Nom (Urine sed) NONE SEEN Normal NONE SEEN [facility] Comment on above: Performed By: #### U AMIC #### [facility] [address] [place] [address] Dr. Na Gonzales Epithelial cells LM Ql (Urine sed) NONE SEEN Normal NONE SEEN /RARE [facility] Comment on above: Performed By: #### U AMIC #### [facility] [address] [place] [address] Dr. Na Gonzales Glucose Ql (U) Negative Normal NEGATIVE [facility] Comment on above: Performed By: #### U AMIC #### [facility] [address] [place] [address] Dr. Na Gonzales Hemoglobin Ql (U) Negative Normal NEGATIVE [facility] Comment on above: Performed By: #### U AMIC #### [facility] [address] [address] [address] Na Gonzales Ketones Ql (U) Negative Normal NEGATIVE [facility] Comment on above: Performed By: #### U AMIC #### [facility] [address] [place] [address] Dr. Na Gonzales LEUKOCYTES SMALL Abnormal NEGATIVE [facility] Comment on above: Performed By: #### U AMIC #### [facility] [address] [place] [address] Dr. Na Gonzales MUCOUS NONE SEEN Normal NONE SEEN [facility] Comment on above: Performed By: #### U AMIC #### [facility] [address] [place] [address] Dr. Na Gonzales Nitrite Ql (U) Negative Normal NEGATIVE [facility] Comment on above: Performed By: #### U AMIC #### [facility] [address] [place] [address] Dr. Na Gonzales pH (U) 6.0 [pH] Normal 5-9 [facility] Comment on above: Performed By: #### U AMIC #### [facility] [address] [place] [address] Dr. Na Gonzales RBC NONE SEEN Abnormal 0-2 [facility] Comment on above: Performed By: #### U AMIC #### [facility] [address] [place] [address] Dr. Na Gonzales SPEC GRAVITY 1.005 Normal 1.005-<=1.02 5 [facility] Comment on above: Performed By: #### U AMIC #### [facility] [address] [place] [address] Dr. Na Gonzales UA PROTEIN Negative Normal NEGATIVE/ TRACE [facility] Comment on above: Performed By: #### U AMIC #### [facility] [address] [place] [address] Dr. aN Gonzales Urobilinogen Qn (U) 0.2 {Irene'U}/dL Normal 0.2 - 1.0 [facility] Comment on above: Performed By: #### U AMIC #### [facility] [address] [place] [address] Dr. Na Gonzales WBC 0-2 Abnormal NONE SEEN [facility] Comment on above: Performed By: #### U AMIC #### [facility] [address] [place] [address] ABD/PELVIS WO CONon [...] DEMETRIS PATEL Date: 2021-04-06 18:26 Normal [facility] CULTURE STOOLon 02-22-2021 CULTURE STOOL Culture Observations : SALMONELLA CALD TO EDNA FELIX LPN@1225/02/21/21/RK Culture Observations: [facility]LLA CALD [facility]@1230/02/21/21/RK Culture Observations: SENDING ISOLATE TO [facility] FOR SEROTYPING Isolate 1 Salmonella enterica ssp enterica Heavy growth of ORGANISM 1 Salmonella enterica ssp enterica ANTIBIOTIC M.I.C RX STATUS Ampicillin <=2 S F Ceftazidime <=1 S F Ceftriaxone <=1 S F Ciprofloxacin <=0.25 S F Levofloxacin <=0.12 S F Trimethoprim/Sulfamethoxazole <=20 S F Normal [facility] Comment on above: Performed By: #### S TOOLCX #### [facility] [address] [place] [address] Dr. Na Gonzales CLOSTRIDIUM DIFFICILE PCRon 02-21-2021 C difficile Toxin Gene SHADI Negative Normal Negative [facility] Comment on above: Performed By: #### C TERRANCE #### [facility] [address] [place] [address] Dr. Na Gonzales Vital Signs Date Time Vital Sign Value Performing Clinician Facility 01-27-2024 15:15-0400 Blood Pressure Location [facility] 01-27-2024 15:15-0400 Diastolic blood pressure 82 mm[Hg] Cristian JARAMILLOL [facility] 01-27-2024 15:15-0400 Heart rate 76 /min Cristian JARAMILLOL [facility] 01-27-2024 15:15-0400 Respiratory rate 16 /min Cristian JARAMILLOL [facility] 01-27-2024 15:15-0400 Systolic blood pressure 120 mm[Hg] Cristian JARAMILLOL [facility] 12-23-2023 14:36-0400 Body height 167.64 cm [facility] 12-23-2023 14:36-0400 Body mass index (BMI) [Ratio] 35.2 kg/m2 [facility] 12-23-2023 14:36-0400 Body weight 98.93 kg [facility] 12-23-2023 14:36-0400 Diastolic blood pressure 86 mm[Hg] [facility] 12-23-2023 14:36-0400 Heart rate 98 /min [facility] 12-23-2023 14:36-0400 Respiratory rate 12 /min [facility] 12-23-2023 14:36-0400 Systolic blood pressure 141 mm[Hg] [facility] 09-25-2022 13:20-0400 Body height 167.6 cm Yolanda Gutierrez MD Work Phone: [facility] 09-25-2022 13:20-0400 Body weight 100.7 kg Yolanda Gutierrez MD Work Phone: [facility] 08-26-2022 14:30-0400 Body height 166.37 cm Peter Ball Other [facility] Other 08-26-2022 14:30-0400 Body mass index (BMI) [Ratio] 36.44 kg/m2 Peter Ball Other [facility] Other 08-26-2022 14:30-0400 Body weight 100.88 kg Peter Ball Other [facility] Other 08-26-2022 14:30-0400 Diastolic blood pressure 78 mm[Hg] Peter Ball Other [facility] Other 08-26-2022 14:30-0400 Respiratory rate 12 /min Peter Ball Other [facility] Other 08-26-2022 14:30-0400 Systolic blood pressure 122 mm[Hg] Peter Ball Other [facility] Other Encounters Encounter Date Encounter Type Care Provider Facility Start: 03-24-2024 End: 03-24-2024 ambulatory Cristian JARAMILLOL [facility] Start: 03-24-2024 End: 03-24-2024 Patient encounter procedure Cristian R NILL [facility] [employer] Start: 03-03-2024 End: 03-03-2024 ambulatory Cristian R NILL Facility:CD:[id number] Start: 01-27-2024 End: 01-27-2024 ambulatory PETER RUSH Facility: [facility] Start: 01-27-2024 End: 01-27-2024 Patient encounter procedure Cristian R NILL [facility] Start: 12-26-2023 ambulatory Cristian JARAMILLOL Facility:[facility] Start: 12-23-2023 End: 12-23-2023 ambulatory [facility] Work Phone: Start: 12-23-2023 End: 12-23-2023 Patient encounter procedure [facility] Physician [facility] Work Phone: Start: 07-02-2023 End: 07-02-2023 ambulatory Peter Rush Other [facility] Other Start: 07-02-2023 Telephone encounter Peter ARELLANO [facility] Start: 09-26-2022 End: 09-27-2022 ambulatory YOLANDA GUTIERREZ Facility:[facility] Start: 09-26-2022 End: 09-26-2022 Subsequent hospital visit by physician Brittany [facility] 2 Work Phone: [facility] Radiology Ultrasound Comment on above: Polyp of colon, unsp ecified part of colon, unspecified type [K63.5] Start: 09-25-2022 End: 09-25-2022 ambulatory YOLANDA GUTIERREZ Facility:[facility] Start: 09-25-2022 End: 09-25-2022 Patient encounter procedure Yolanda Gutierrez MD Work Phone: Gastroenterology Comment on above: Polyp of colon, unsp ecified part of colon, unspecified type (Primary Dx); Liver hemangioma Start: 08-31-2022 End: 08-31-2022 ambulatory Peter Rush Other [facility] Other Start: 08-31-2022 Telephone encounter Peter ARELLANO [facility] Start: 08-26-2022 End: 08-26-2022 ambulatory Peter Rush Other [facility] Other Start: 08-26-2022 Patient encounter procedure Peter CHARLES [facility] Start: 01-11-2022 End: 01-12-[address] PETER RUSH Facility:[facility] Start: 04-06-2021 End: 04-07-[address] PETER RUSH Facility:[facility] Start: 02-20-2021 End: 02-20-[address] PETER RUSH Facility: Start: 04-04-2020 Adult health examination Peter Rush Other [facility] [employer] Other Procedures Date Procedure Procedure Detail Performing [...] Screening Diabetes Screenin g [facility] Start: 06-09-2023 Colonoscopy COL[address]OSCOPY [facility] Start: 06-09-2023 COLORECTAL CANCER SCREENING COLORECTAL CANCER SCREENING [facility] Start: 01-24-2023 Covid-19 Vaccine ( season) Covid-19 Vaccine () [facility] Start: 01-24-2023 Influenza vaccination Influenza Vacc ine (#1) [facility] Start: 09-25-2022 End: 11-25-2022 CBC W Auto Differential panel - Blood CBC + DIFF Lab Routine Polyp of colon, unspecified part of colon, unspecified type Liver hemangioma Expected: 09/25/2022, Expires: 11/25/2022 [facility] Work Phone: Comment on above: Expected: 09/25/2022 , Expires: 11/25/2022 Start: 09-25-2022 End: 11-25-2022 Comprehensive metabolic 2000 panel - Serum or Plasma COMP METABOLIC PANEL Lab Routine Polyp of colon, unspecified part of colon, unspecified type Liver hemangioma Expected: 09/25/2022, Expires: 11/25/2022 [facility] Work Phone: Comment on above: Expected: 09/25/2022 , Expires: 11/25/2022 Start: 2022 ADVANCE DIRECTIVE DISCUSSION ADVANCE DIRECTIVE DISCUSSION [facility] Start: 2022 BONE DENSITY BONE DENSITY [facility] Start: 2022 Bone Density Screening Bone Density Screening [facility] Start: 2022 Pneumococcal Vaccine : 65+ (1 - PCV) Pneumococcal Vaccine: 65+ (1 - PCV) [facility] Start: 2022 PNEUMOCOCCAL: 65+ (1 - PCV) PNEUMOCOCCAL: 65+ (1 - PCV) [facility] Start: 05-26-2022 DEPRESSION ASSESSMENT DEPRESSION ASS ESSMENT [facility] Start: 09-29-2020 COVID-19 VACCINE (2 - Booster for Roe series) COVID-19 VACCINE (2 - Booster for Roe series) [facility] Start: 04-26-2018 DIABETES SCREEN DIABETES SCREEN [facility] Start: 2017 RSV Vaccine (1 - 1-d ose 60+ series) RSV Vaccine (1 - 1-dose 60+ series) [facility] Start: 2007 SHINGRIX VACCINE (1 of 2) SHINGRIX VACCINE (1 of 2) [facility] Start: 2002 COLOGUARD (FIT-DNA) COLOGUARD (FIT-D NA) [facility] Start: [address] COLONOGRAPHY [facility] Start: 2002 FECAL OCCULT BLOOD FECAL OCCULT BLOO D [facility] Start: 2002 Lipid 1996 panel - S fernando or Plasma Lipid Screening [facility] Start: 2002 LIPID SCREEN LIPID SCREEN [facility] Start: 2002 SIGMOIDOSCOPY SIGMOIDOSCOPY [facility] Start: [address] [facility] Start: 1976 Urine microalbumin profile [facility] Start: 1975 HEPATITIS C SCREENING HEPATITIS C SC REENING [facility] Start: 1975 HIV SCREENING HIV SCREENING [facility] End: 09-26-2023 COLONOSCOPY DIAGNOSTIC COLONOSCOPY DIAGNOSTIC Endoscopy Routine Polyp of colon, unspecified part of colon, unspecified type Liver hemangioma 1 Occurrences starting 09/25/2022 until 09/26/2023 [facility] Work Phone: Comment on above: 1 Occurrences starti ng 09/25/2022 until 09/26/2023 End: 10-25-2023 US ABD RIGHT UPPER QUADRANT US ABD RIGHT UPPER QUADRANT Radiology Routine Polyp of colon, unspecified part of colon, unspecified type Liver hemangioma 1 Occurrences starting 09/25/2022 until 10/25/2023 [facility] Work Phone: Comment on above: 1 Occurrences starti ng 09/25/2022 until 10/25/2023 XR Knee - right 4 Views [facility] Immunizations Immunization Date Immunization Notes Care Provider Berkley boland 04-09-2022 influenza, high dose seasonal, preservative-free Peter Rush Other [facility] [employer] Other 04-09-2022 influenza virus vaccine, split virus (incl. purified surface antigen) Peter Rush Other [facility] [employer] Other 04-09-2022 influenza virus vaccine, unspecified formulation Ultra 2 Work Phone: [facility] 03-24-2021 influenza virus vaccine, split virus (incl. purified surface antigen) Peter Rush Other [facility] [employer] Other 03-24-2021 influenza virus vaccine, unspecified formulation [facility] 03-12-2021 COVID-19 Vaccine Roe - Documentation Purposes Only Peter Rush Other [facility] 02-23-2017 tetanus and diphther ia toxoids, adsorbed, preservative free, for adult use (5 Lf of tetanus toxoid and 2 Lf of diphtheria toxoid) Peter Rush Other [facility] 03-15-2016 tetanus and diphther ia toxoids, adsorbed, preservative free, for adult use (5 Lf of tetanus toxoid and 2 Lf of diphtheria toxoid) Peter Rush Other [facility] Payers Date Payer Category Payer Unknown [id number] 2022 Unknown MMO MMO MEDICARE SUPPLEMENT [id number] 2022-Present [phone] [address] [place] [address] Indemnity [id number] 2022 Medicare [id number] 2022 Medicare MEDICARE MEDICAR E A AND B [id number] 2022-Present [phone] [address] [address] [place] [address] Medicare [id number] 1959 Unknown [id number] 1957 Unknown [id number] 1957 Unknown [id number] 1957 Unknown [id number] 1957 Unknown [id number] 1957 Unknown [id number] 1957 Unknown [id number] Private Health Insurance [facility] [employer] [id number] Social History Date Type Detail Facility Start: 09-02-2018 End: 09-25-2022 Sex Assigned At [facility] Start: 08-24-2013 End: 03-23-2024 Tobacco smoking status RIIS Never smoked tobacco [facility] Start: 08-24-2013 Tobacco use and exposure Smokeless tobacco non-user [facility] Start: 09-02-2018 Alcohol intake Current drinke r of alcohol (finding) [facility] Start: 08-24-2013 Alcohol [facility] occ. [facility] Start: 1955 Sex Assigned At Female [facility] Start: 09-02-2018 End: 09-25-2022 History of Social function [facility] National Score (1-100), lower number is lower risk 67 [facility] Start: 04-11-2021 Gender identity Identifies as female gender (finding) [facility] Start: 11-24-2023 Tobacco smoking stat us RIIS Ex-smoker (finding) [facility] Medical Equipment Procedure Code Equipment Code Equipment Origin al Text Equipment Identifier Dates [id number]-Kind Implant - Crushed Cancellous 15cc [id number] Start: 07-19-2016 Comment on above: Description: ONE-OF- A-KIND IMPLANT - Crushed Cancellous 15cc. Brought into room at 0840. Handed sterily to field by Donovan Christensen RN to Abigail Hayes ADMISSIONS SUPERVISOR at 1015. Also handled by Moe Ulrich MD, and Abigail Carey MD. No preparation required. Plate Lcp Long T Stainless Steel 61mm Bone 2 Hole Variable Angle Fusion - [id number] Start: 07-19-2016 Screw Lcp 2.7mm T8 Stainless Steel 22mm Bone Variable Angle Lock Self Tap - [id number] Start: 07-19-2016 Washer Surfix 3.5mm Stainless Steel Orthopedic Lock Midfoot - [id number] Start: 07-19-2016 Functional Status Date Assessment Result Facility 03-24-2024 Functional Status N/A [facility] 01-27-2024 Functional Status N/A [facility] Clinical Notes 08-26-2022 to 01-27-2024 Patient InstructionsYolanda [...] Status SARS-CoV-2 (COVID-19) Ad26 vaccine 08/04/2020 Recorded [facility] Comment on above: Result Comment: Elec tronically [...] If you do not have a responsible trolley coach driver (family member or friend) with you [...] If you do not have a responsible trolley coach driver (family member or friend) with you to take you home, your exam cannot be done with sedation and will be cancelled. Please bring a list of all of your current medications, including any Ioyr-evw-Pnuougx medications with you. Medications If you take [...] documented in this encounter [facility] 09-25-2022 History and physical note Hepatology [facility] consult by Dr Rush for liver [...] documented in this encounter [facility] 08-31-2022 Evaluation note Encounter Date Diagnosis Assessment Notes Aug, Menopause (ICD-10 - Z78.0) [facility] Other 04-03-2023 Evaluation note* Encounter Date Diagnosis [...] and consequences of not detecting early cancer [facility] [employer] Other Evaluation + Plan note No data available for this section [facility] Evaluation note* Diagnosis Polyp of colon, unspecified part of colon, unspecified type- Primary Liver hemangioma Hemangioma of intra-abdominal structures documented in this encounter [facility] Diagnosis Polyp of colon, unspecified part of colon, unspecified type Liver hemangioma Hemangioma of intra-abdominal structures documented in this encounter [facility]No [facility] [employer] Other Evaluation note* Diagnosis Onset Date Resolution Status Cavernous hemangioma of liver acute Knee pain, bilateral acute Menopause acute Obesity acute [facility] annual wellness visit, initial noneactive Screening mammogram for breast cancer noneactive [facility] Work Phone: History general Narrative - [...] History hysterectomy Hospitalization History c section, childbirth [facility] Other Hospital Discharge instructions No data available for this section [facility] Progress note No data available for this section [facility] Reason for referral (narrative)* Outpatient Procedure (Routine) - Authorized Specialty Diagnoses / Procedures Referred By Ernst berry Referred To Contact [facility] Diagnoses Polyp of colon, unspecified part of colon, unspecified type Liver hemangioma Procedures COLONOSCOPY DIAGNOSTIC COLONOSCOPY FLX DX W/COLLJ SPEC WHEN PFRMD Yolanda Stafford MD [address] [place] [address] [facility] [place] [address] Referral ID Status Reason Start Date Expiration Date Visits Requested Visits Authorized [id number] Authorized Auto-Generat ed Referral 09/25/2022 09/26/2023 1 1 * Diagnostic Procedure Only (Routine) - Authorized Specialty Diagnoses / Procedures Referred By Ernst berry Referred To Contact [facility] Diagnoses Polyp of colon, unspecified part of colon, unspecified type Liver hemangioma Procedures US ABD RIGHT UPPER QUADRANT US ABDOMINAL REAL TIME W/IMAGE LIMITED Yolanda Stafford MD [address] [employer] [place] [address] [facility] Imaging Referral ID Status Reason Start Date Expiration Date Visits Requested Visits Authorized [id number] Authorized Auto-Generat ed Referral 09/25/2022 10/25/2023 1 1 [facility] for referral (narrative)* Diagnostic Procedure Only (Routine) - Closed Specialty Diagnoses / Procedures Referred By Ernst berry Referred To Contact [facility] IMAGING Diagnoses Polyp of colon, unspecified part of colon, unspecified type Liver hemangioma Procedures US ABD RIGHT UPPER QUADRANT US ABDOMINAL REAL TIME W/IMAGE LIMITED Yolanda Stafford MD [address] [place] [address] [facility] Referral ID Status Reason Start Date Expiration Date V isits Requested Visits Authorized [id number] Closed Auto-Generate d Referral 09/25/2022 10/25/2023 1 1 [facility] for visit Narrative* Diagnostic Procedure Only (Routine) - Closed Specialty Diagnoses / Procedures Referred By Contac t Referred To Contact US IMAGING Diagnoses Polyp of colon, unspecified part of colon, unspecified type Liver hemangioma Procedures US ABD RIGHT UPPER QUADRANT US ABDOMINAL REAL TIME W/IMAGE LIMITED Yolanda Stafford MD [address] [place] [address] Us Imaging [place] [address] Referral ID Status Reason Start Date Expiration Date V isits Requested Visits Authorized [id number] Closed Auto-Generate d Referral 09/25/2022 10/25/2023 [address] 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 Advance Directive(s) 10/13/2013 10:12 PM [...] content) DATE CREATED AUTHOR 01/17/2022 [facility] DATE CREATED AUTHOR AUTHOR'S ORGANIZ ATION 09/27/2022 [facility] DATE CREATED AUTHOR AUTHOR'S ORGANIZ ATION 10/04/2022 [facility] DATE CREATED AUTHOR AUTHOR'S ORGANIZ ATION 03/26/2024 [facility] REASON FOR VISIT (unrecogniz ed section and content) Reason Comments New Patient Source Comments (unrecognize d section and content) In the event this informatio n is protected by the Federal Confidentiality of Alcohol and Drug Abuse Patient Records regulations: The Federal rules restrict any use of the information to criminally investigate or prosecute any alcohol or drug abuse patient.[facility] the event this information is protected by the Federal Confidentiality of Alcohol and Drug Abuse Patient Records regulations: The Federal rules restrict any use of the information to criminally investigate or prosecute any alcohol or drug abuse patient.[facility] Care Teams (unrecognized sec tion and content) Music Arranger Relationship Specialty Start Date End Date Peter Rush DO PCP - General Internal Medicine 09/11/12 Music Arranger Relationship Specialty Start Date End Date Peter [...] BE BASED ON THE PRIMARY CLINICAL RECORDS. [facility] [employer] [facility]. provides no warranty or guarantee of the accuracy or completeness of information in this document.
== END 2024-06-21 08:38 | disposition home or self-care (01) ==
LOC: CT 08:37
PROVIDERS: PCP Internal Medicine; Visit Provider Podiatrist Foot & Ankle Surgery
DX: M19.072 Primary osteoarthritis, left ankle and foot (principal); M79.672 Pain in left foot; M81.0 Age-related osteoporosis without current pathological fracture; M77.32 Calcaneal spur, left foot
CPT/HCPCS: 73700; 77080

== ENCOUNTER 2024-07-12 11:34 | Outpatient (OUT) | payer MEDICARE, OTHER, SELFPAY ==
--- OUTSIDE RECORDS SUMMARY | 2024-07-12 11:52 | XMS_ITS | CCD ---
Author Organization [facility] Care Team Providers Care Health Promotion Coordinator Name Role Phone VICTOR MANUEL, DR COBIAN [...] Morphine; Translations: [MORPHINE] Drug Allergy 3 [facility] Repository (7 sources) Morphine; Translations: [morphine] Drug Allergy 3 Other: See Comments, Patient reported problems (finding) [facility] (3 sources) Latex; Translations: [LATEX] Drug Allergy 3 Rash [facility] (1 source) patient allergy list reviewed by nurse or physicia Propensity to adverse reactions 8 Comment:Done directworx Other Medications Current Medications Medication Drug Class(es) [...] tw o times a week. estrogens, conjugated (jail) 0.625 mg/ml vaginal cream (3 sources) Estrogen [...] Date: 03/18/24 Status: Ordered polyethylene glycol 3350 818446 mg / potassium chloride 2970 mg / sodium bicarbonate 6740 mg / sodium chloride 5860 mg / sodium sulfate 88125 mg powder for oral solution (1 source) [...] SARS-CoV-2 (COVID-19) Ad26 vaccine 08/04/2020 Recorded Normal [facility] Comment on above: Result Comment: Elec tronically Signed By: ABDULAZIZ WILSON, Cristian Doshi\Date and Time Signed: 03/24/24 16:23 EDT Reminderson 03-04-2024 Reminders Reminders From: Patti Douglas LPN To: GSN - Clinical; Sent: 03/04/2024 14:13:04 EDT Show up: 02/01/2034 07:00:00 EDT Subject: colonoscopy recall Due Date/Time: 03/03/2034 07:00:00 EDT Reminder/Recall Patient due for screening colonoscopy 03/03/2034. Normal [facility] CBC W Auto Differential pane l (Bld)on 09-26-2022 Basophils (Bld) [#/Vol] 0.04 10*3/uL Normal <0.11 [facility] Comment on above: Order Comment: Speci men Type: BLOOD SPECIMEN Ordering Facility: [facility] Address: [address] [address] Performed By: #### 5 7021-8 #### [facility] CLIA [id number] [address] [place] [address] [place] Basophils/100 WBC (Bld) 0.7 % Normal [facility] Comment on above: Order Comment: Speci men Type: BLOOD SPECIMEN Ordering Facility: [facility] Address: [address] [place] [address] Performed By: #### 5 7021-8 #### [facility] CLIA [id number] [place] [address] [place] Differential cell count method Nom (Bld) Auto Normal [facility] Comment on above: Order Comment: Speci men Type: BLOOD SPECIMEN Ordering Facility: [facility] Address: [address] [address] Performed By: #### 5 7021-8 #### [facility] CLIA [id number] [address] [place] [address] [place] Eosinophils (Bld) [#/Vol] 0.04 10*3/uL Normal <0.46 [facility] Comment on above: Order Comment: Speci men Type: BLOOD SPECIMEN Ordering Facility: [facility] Address: [address] [address] Performed By: #### 5 7021-8 #### [facility] CLIA [id number] [address] [place] [address] [place] Eosinophils/100 WBC (Bld) 0.7 % Normal [facility] Comment on above: Order Comment: Speci men Type: BLOOD SPECIMEN Ordering Facility: [facility] Address: [address] [address] Performed By: #### 5 7021-8 #### [facility] CLIA [id number] [address] [place] [address] [place] Erythrocyte distribution width (RBC) [Ratio] 12.2 % Normal 11.5-15.0 [facility] Comment on above: Order Comment: Speci men Type: BLOOD SPECIMEN Ordering Facility: [facility] Address: [address] [address] Performed By: #### 5 7021-8 #### [facility] CLIA [id number] [address] [place] [address] [place] Hematocrit (Bld) [Volume fraction] 43.6 % Normal 36.0-46.0 [facility] Comment on above: Order Comment: Speci men Type: BLOOD SPECIMEN Ordering Facility: [facility] Address: [address] [address] Performed By: #### 5 7021-8 #### [facility] CLIA [id number] [address] [place] [address] [place] Hemoglobin (Bld) [Mass/Vol] 14.4 g/dL Normal 11.5-15.5 [facility] Comment on above: Order Comment: Speci men Type: BLOOD SPECIMEN Ordering Facility: [facility] Address: [address] [address] Performed By: #### 5 7021-8 #### [facility] CLIA [id number] [address] [place] [address] [place] Immature granulocytes (Bld) [#/Vol] 10*3/uL Normal <0.10 [facility] Comment on above: Order Comment: Speci men Type: BLOOD SPECIMEN Ordering Facility: [facility] Address: [address] [address] Performed By: #### 5 7021-8 #### [facility] CLIA [id number] [address] [place] [address] [place] Immature granulocytes/100 WBC (Bld) 0.3 % Normal [facility] Comment on above: Order Comment: Speci men Type: BLOOD SPECIMEN Ordering Facility: [facility] Address: [address] [address] Performed By: #### 5 7021-8 #### [facility] IA [id number] [address] [place] [address] [place] Lymphocytes (Bld) [#/Vol] 1.48 10*3/uL Normal 1.00-4.00 [facility] Comment on above: Order Comment: Speci men Type: BLOOD SPECIMEN Ordering Facility: [facility] Address: [address] Performed By: #### 5 7021-8 #### [facility] IA [id number] [address] [place] [address] [place] Lymphocytes/100 WBC (Bld) 25.8 % Normal [facility] Comment on above: Order Comment: Speci men Type: BLOOD SPECIMEN Ordering Facility: [facility] Address: [address] Performed By: #### 5 7021-8 #### [facility] IA [id number] [address] [place] [address] [place] MCH (RBC) [Entitic mass] 30.5 pg Normal 26.0-34.0 [facility] Comment on above: Order Comment: Speci men Type: BLOOD SPECIMEN Ordering Facility: [facility] Address: [address] [id number] Performed By: #### 5 7021-8 #### [facility] IA [id number] [address] [place] MCHC (RBC) [Mass/Vol] 33.0 g/dL Normal 30.5-36.0 [facility] Comment on above: Order Comment: Speci men Type: BLOOD SPECIMEN Ordering Facility: [facility] Address: [address] Performed By: #### 5 7021-8 #### [facility] IA [id number] [address] [place] [address] [place] MCV (RBC) [Entitic vol] 92.4 fL Normal 80.0-100.0 [facility] Comment on above: Order Comment: Speci men Type: BLOOD SPECIMEN Ordering Facility: [facility] Address: [address] Performed By: #### 5 7021-8 #### [facility] IA [id number] [place] [address] [place] Monocytes (Bld) [#/Vol] 0.55 10*3/uL Normal <0.87 [facility] Comment on above: Order Comment: Speci men Type: BLOOD SPECIMEN Ordering Facility: [facility] Address: [address] [address] Performed By: #### 5 7021-8 #### [facility] IA [id number] [address] [place] [address] [place] Monocytes/100 WBC (Bld) 9.6 % Normal [facility] Comment on above: Order Comment: Speci men Type: BLOOD SPECIMEN Ordering Facility: [facility] Address: [address] Performed By: #### 5 7021-8 #### [facility] IA [id number] [address] [place] [address] [place] Neutrophils (Bld) [#/Vol] 3.61 10*3/uL Normal 1.45-7.50 [facility] Comment on above: Order Comment: Speci men Type: BLOOD SPECIMEN Ordering Facility: [facility] Address: [address] [address] Performed By: #### 5 7021-8 #### [facility] CLIA [id number] [address] [place] Neutrophils/100 WBC (Bld) 62.9 % Normal [facility] Comment on above: Order Comment: Speci men Type: BLOOD SPECIMEN Ordering Facility: [facility] Address: [address] [address] Performed By: #### 5 7021-8 #### [facility] CLIA [id number] [address] [place] [address] [place] Nucleated RBC (Bld) [#/Vol] 10*3/uL Normal <0.01 [facility] Comment on above: Order Comment: Speci men Type: BLOOD SPECIMEN Ordering Facility: [facility] Address: [address] [address] Performed By: #### 5 7021-8 #### [facility] IA [id number] [address] [place] [address] [place] Nucleated RBC/100 WBC (Bld) [Ratio] 0.0 /100 WBC Normal [facility] Comment on above: Order Comment: Speci men Type: BLOOD SPECIMEN Ordering Facility: [facility] Address: [address] Performed By: #### 5 7021-8 #### [facility] CLIA [id number] [address] [place] [address] [place] Platelet mean volume (Bld) [Entitic vol] 9.2 fL Normal 9.0-12.7 [facility] Comment on above: Order Comment: Speci men Type: BLOOD SPECIMEN Ordering Facility: [facility] Address: [address] [address] Performed By: #### 5 7021-8 #### [facility] CLIA [id number] [address] [place], [place] [id number] [place] [address] [place] Platelets (Bld) [#/Vol] 267 10*3/uL Normal 150-400 [facility] Comment on above: Order Comment: Speci men Type: BLOOD SPECIMEN Ordering Facility: [facility] Address: [address] [place] [address] Performed By: #### 5 7021-8 #### [facility] CLIA [id number] [address] [place] [address] [place] RBC (Bld) [#/Vol] 4.72 10*6/uL Normal 3.90-5.20 [facility] Comment on above: Order Comment: Speci men Type: BLOOD SPECIMEN Ordering Facility: [facility] Address: [address] [place] [address] Performed By: #### 5 7021-8 #### [facility] CLIA [id number] [address] [place] [address] [place] WBC (Bld) [#/Vol] 5.74 10*3/uL Normal 3.70-11.00 [facility] Comment on above: Order Comment: Speci men Type: BLOOD SPECIMEN Ordering Facility: [facility] Address: [address] [place], [place] [address] Performed By: #### 5 7021-8 #### [facility] CLIA [id number] [address] [place] [address] [place] [facility] [place] Comprehensive metabolic 2000 panelon 09-26-2022 Albumin [Mass/Vol] 4.6 g/dL Normal 3.9-4.9 [facility] Comment on above: Order Comment: Speci men Type: BLOOD SPECIMEN Ordering Facility: [facility] Address: [address] [place] [address] Performed By: #### 2 4323-8 #### [facility] CLIA [id number] [address] [id number] [facility] [place] ALP [Catalytic activity/Vol] 89 U/L Normal 34-123 [facility] Comment on above: Order Comment: Speci men Type: BLOOD SPECIMEN Ordering Facility: [facility] Address: [address] [address] Performed By: #### 2 4323-8 #### [facility] CLIA [id number] [address] [place] [address] [place] ALT [Catalytic activity/Vol] 28 U/L Normal 7-38 [facility] Comment on above: Order Comment: Speci men Type: BLOOD SPECIMEN Ordering Facility: [facility] Address: [address] [address] Performed By: #### 2 4323-8 #### [facility] CLIA [id number] [address] [place] [address] [place] Anion gap [Moles/Vol] 9 mmol/L Normal 9-18 [facility] Comment on above: Order Comment: Speci men Type: BLOOD SPECIMEN Ordering Facility: [facility] Address: [address] [address] Performed By: #### 2 4323-8 #### [facility] CLIA [id number] [address] [place] [address] [place] AST [Catalytic activity/Vol] 21 U/L Normal 13-35 [facility] Comment on above: Order Comment: Speci men Type: BLOOD SPECIMEN Ordering Facility: [facility] Address: [address] [address] Performed By: #### 2 4323-8 #### [facility] CLIA [id number] [address] [place] [address] [place] Bilirubin [Mass/Vol] 0.5 mg/dL Normal 0.2-1.3 [facility] Comment on above: Order Comment: Speci men Type: BLOOD SPECIMEN Ordering Facility: [facility] Address: [address] [address] Performed By: #### 2 4323-8 #### [facility] CLIA [id number] [address] [place] [address] [place] Calcium [Mass/Vol] 9.7 mg/dL Normal 8.5-10.2 [facility] Comment on above: Order Comment: Speci men Type: BLOOD SPECIMEN Ordering Facility: [facility] Address: [address] [address] Performed By: #### 2 4323-8 #### [facility] CLIA [id number] [address] [place] [address] [place] Chloride [Moles/Vol] 104 mmol/L Normal 97-105 [facility] Comment on above: Order Comment: Speci men Type: BLOOD SPECIMEN Ordering Facility: [facility] Address: [address] [place] [address] Performed By: #### 2 4323-8 #### [facility] CLIA [id number] [address] [place] [address] [place] CO2 [Moles/Vol] 29 mmol/L Normal 22-30 [facility] Comment on above: Order Comment: Speci men Type: BLOOD SPECIMEN Ordering Facility: [facility] Address: [address] [place] [address] Performed By: #### 2 4323-8 #### [facility] CLIA [id number] [address] [place] [address] [place] Creatinine [Mass/Vol] 0.68 mg/dL Normal 0.58-0.96 [facility] Comment on above: Order Comment: Speci men Type: BLOOD SPECIMEN Ordering Facility: [facility] Address: [address] [place] [address] Performed By: #### 2 4323-8 #### [facility] CLIA [id number] [address] [place] ESTIMATED GLOMERULAR FILTRATION RATE 97 mL/min/1.73m??? Normal >=60 [facility] Comment on above: Order Comment: Speci men Type: BLOOD SPECIMEN Ordering Facility: [facility] Address: [address] [place] [address] Result Comment: Barbara mated Glomerular Filtration Rate [...] GFR. Performed By: #### 2 4323-8 #### [facility] CLIA [id number] [address] [place] [address] [place] Glucose [Mass/Vol] 98 mg/dL Normal 74-99 [facility] Comment on above: Order Comment: Vineet rinaldi Type: BLOOD SPECIMEN Ordering Facility: [facility] Address: [address] [address] Result Comment: The [place] [employer] (ADA) provides guidance for cutoff [...] Standards of Medical Care in Diabetes 2016, [place] [employer]. Diabetes Care. 2016.39(Suppl 1). Performed By: #### 2 4323-8 #### [facility] CLIA [id number] [address] [place] [address] [place] Potassium [Moles/Vol] 4.6 mmol/L Normal 3.7-5.1 [facility] Comment on above: Order Comment: Vineet rinaldi Type: BLOOD SPECIMEN Ordering Facility: [facility] Address: [address] [address] Performed By: #### 2 4323-8 #### [facility] CLIA [id number] [address] [place] [address] [place] Protein [Mass/Vol] 7.4 g/dL Normal 6.3-8.0 [facility] Comment on above: Order Comment: Vineet rinaldi Type: BLOOD SPECIMEN Ordering Facility: [facility] Address: [address] [address] Performed By: #### 2 4323-8 #### [facility] CLIA [id number] [address] [place] [address] [place] Sodium [Moles/Vol] 142 mmol/L Normal 136-144 [facility] Comment on above: Order Comment: Speci men Type: BLOOD SPECIMEN Ordering Facility: [facility] Address: [address] [address] Performed By: #### 2 4323-8 #### [facility] CLIA [id number] [address] [place], [place] [id number] [place] [address] [place] Urea nitrogen [Mass/Vol] 17 mg/dL Normal 7-21 [facility] Comment on above: Order Comment: Speci men Type: BLOOD SPECIMEN Ordering Facility: [facility] Address: [address] [address] Performed By: #### 2 4323-8 #### [facility] CLIA [id number] [address] [facility] [place], [place] [id number] [place] [address] [place] No Panel Informationon 09-26 [facility] US ABD RIGHT UPPER QUADRANTo n [...] could represent the previously described hemangiomas. Coat Tailor: DARRELL Transcribe Date/Time: Oct 03 2022 6:03A [...] could represent the previously described hemangiomas. Coat Tailor: [facility] Transcribe Date/Time: Oct 03 2022 6:03A Dictated by : NAS DENSON MD This examination was interpreted and the report reviewed and electronically signed by: NAS DENSON MD on Oct 03 2022 6:08AM EST [id number] [facility] CNOVon 09-25-2022 CNOV Office Visit (GASTAV ) BETTINA REED ([id number]) 1955 F Date Time Provider Department 09/25/22 1:30 PM YOLANDA STAFFORD During your visit today, we recorded the following information about you: Weight Height 100.7 kg 1.676 m Yolanda Ta MD 09/25/2022 2:21 PM Signed Hepatology [facility] consult by Dr Rush for liver lesions [...] If you do not have a responsible public transit trolley driver (family member or friend) with you [...] Imodium, Ka (more content not included)... Normal [facility] HISTORY PHYSICALon HISTORY PHYSICAL HNO ID: [id number] Author: Yolanda Gutierrez MD Service: ? Author Type: Physician Type: HANDP Filed: 09/25/2022 2:21 PM Note Text: Hepatology [facility] HPI consult by Dr Rush for liver [...] Walters MD cc dr Victor Manuel Ramires [facility] CULTURE URINEon 01-11-2022 CULTURE URINE Culture Observations : MODERATE GROWTH OF MIXED GENITAL JESUS. NO POTENTIAL PATHOGENS SEEN. Normal [facility] Comment on above: Performed By: #### U RCX #### [facility] [address] [address] [address] Na Gonzales UA RANDOM W/MICROSCOPICon BACTERIA NONE SEEN Normal NONE SEEN [facility] Comment on above: Performed By: #### U AMIC #### [facility] [address] [address] [address] Na Gonzales Bilirubin Ql (U) Negative Normal NEGATIVE [facility] Comment on above: Performed By: #### U AMIC #### [facility] [address] [address] [address] Na Gonzales CAST NONE SEEN Normal NONE SEEN [facility] Comment on above: Performed By: #### U AMIC #### [facility] [address] [place] [address] Dr. Na Gonzales Clarity (U) CLEAR Normal CLEAR [facility] Comment on above: Performed By: #### U AMIC #### [facility] [address] [address] [address] Na Gonzales Color (U) LT. YELLOW Normal YELLOW [facility] Comment on above: Performed By: #### U AMIC #### [facility] [address] [place] [address] Dr. Na Gonzales Crystals LM Nom (Urine sed) NONE SEEN Normal NONE SEEN [facility] Comment on above: Performed By: #### U AMIC #### [facility] [address] [place] [address] Dr. Na Gonzales Epithelial cells LM Ql (Urine sed) NONE SEEN Normal NONE SEEN /RARE [facility] Comment on above: Performed By: #### U AMIC #### [facility] [address] [place] [address] Dr. Na Gonzales Glucose Ql (U) Negative Normal NEGATIVE [facility] Comment on above: Performed By: #### U AMIC #### [facility] [address] [place] [address] Dr. Na Gonzales Hemoglobin Ql (U) Negative Normal NEGATIVE [facility] Comment on above: Performed By: #### U AMIC #### [facility] [address] [address] [address] Na Gonzales Ketones Ql (U) Negative Normal NEGATIVE [facility] Comment on above: Performed By: #### U AMIC #### [facility] [address] [place] [address] Dr. Na Gonzales LEUKOCYTES SMALL Abnormal NEGATIVE [facility] Comment on above: Performed By: #### U AMIC #### [facility] [address] [place] [address] Dr. Na Gonzales MUCOUS NONE SEEN Normal NONE SEEN [facility] Comment on above: Performed By: #### U AMIC #### [facility] [address] [place] [address] Dr. Na Gonzales Nitrite Ql (U) Negative Normal NEGATIVE [facility] Comment on above: Performed By: #### U AMIC #### [facility] [address] [place] [address] Dr. Na Gonzales pH (U) 6.0 [pH] Normal 5-9 [facility] Comment on above: Performed By: #### U AMIC #### [facility] [address] [place] [address] Dr. Na Gonzales RBC NONE SEEN Abnormal 0-2 [facility] Comment on above: Performed By: #### U AMIC #### [facility] [address] [place] [address] Dr. Na Gonzales SPEC GRAVITY 1.005 Normal 1.005-<=1.02 5 [facility] Comment on above: Performed By: #### U AMIC #### [facility] [address] [place] [address] Dr. Na Gonzales UA PROTEIN Negative Normal NEGATIVE/ TRACE [facility] Comment on above: Performed By: #### U AMIC #### [facility] [address] [place] [address] Dr. Na Gonzales Urobilinogen Qn (U) 0.2 {Irene'U}/dL Normal 0.2 - 1.0 [facility] Comment on above: Performed By: #### U AMIC #### [facility] [address] [place] [address] Dr. Na Gonzales WBC 0-2 Abnormal NONE SEEN [facility] Comment on above: Performed By: #### U AMIC #### [facility] [address] [place] [address] ABD/PELVIS WO CONon [...] DEMETRIS PATEL Date: 2021-04-06 18:26 Normal [facility] CULTURE STOOLon 02-22-2021 CULTURE STOOL Culture Observations : SALMONELLA CALD TO EDNA FELIX LPN@1225/02/21/21/RK Culture Observations: SALMONELLA CALD TO [facility]@1230/02/21/21/RK Culture Observations: SENDING ISOLATE TO [facility] FOR SEROTYPING Isolate 1 Salmonella enterica ssp enterica Heavy growth of ORGANISM 1 Salmonella enterica ssp enterica ANTIBIOTIC M.I.C RX STATUS Ampicillin <=2 S F Ceftazidime <=1 S F Ceftriaxone <=1 S F Ciprofloxacin <=0.25 S F Levofloxacin <=0.12 S F Trimethoprim/Sulfamethoxazole <=20 S F Normal [facility] Comment on above: Performed By: #### S TOOLCX #### [facility] [address] [place] [address] Dr. Na Gonzales CLOSTRIDIUM DIFFICILE PCRon 02-21-2021 C difficile Toxin Gene SHADI Negative Normal Negative [facility] Comment on above: Performed By: #### C TERRANCE #### [facility] [address] [place] [address] Dr. Na Gonzales Vital Signs Date Time Vital Sign Value Performing Clinician Facility 01-27-2024 15:15-0400 Blood Pressure Location Cristian JARAMILLOAnika [facility] 01-27-2024 15:15-0400 Diastolic blood pressure 82 mm[Hg] Cristian JARAMILLOL [facility] 01-27-2024 15:15-0400 Heart rate 76 /min Cristian JARAMILLOL [facility] 01-27-2024 15:15-0400 Respiratory rate 16 /min Cristian JARAMILLOL [facility] 01-27-2024 15:15-0400 Systolic blood pressure 120 mm[Hg] Cristian JARAMLILOL [facility] 12-23-2023 14:36-0400 Body height 167.64 cm [facility] 12-23-2023 14:36-0400 Body mass index (BMI) [Ratio] 35.2 kg/m2 [facility] 12-23-2023 14:36-0400 Body weight 98.93 kg [facility] 12-23-2023 14:36-0400 Diastolic blood pressure 86 mm[Hg] [facility] 12-23-2023 14:36-0400 Heart rate 98 /min [facility] 12-23-2023 14:36-0400 Respiratory rate 12 /min [facility] 12-23-2023 14:36-0400 Systolic blood pressure 141 mm[Hg] [facility] 09-25-2022 13:20-0400 Body height 167.6 cm Yolanda Gutierrez MD Work Phone: [facility] 09-25-2022 13:20-0400 Body weight 100.7 kg Yolanda Gutierrez MD Work Phone: [facility] 08-26-2022 14:30-0400 Body height 166.37 cm Peter Ball Other [employer] Other 08-26-2022 14:30-0400 Body mass index (BMI) [Ratio] 36.44 kg/m2 Peter Ball Other [employer] Other 08-26-2022 14:30-0400 Body weight 100.88 kg Peter Ball Other [employer] Other 08-26-2022 14:30-0400 Diastolic blood pressure 78 mm[Hg] Peter Ball Other [employer] Other 08-26-2022 14:30-0400 Respiratory rate 12 /min Peter Ball Other [employer] Other 08-26-2022 14:30-0400 Systolic blood pressure 122 mm[Hg] Peter Ball Other [employer] Other Encounters Encounter Date Encounter Type Care Provider Facility Start: 03-24-2024 End: 03-24-2024 ambulatory Cristian JARAMILLOL Facility:[facility] Start: 03-24-2024 End: 03-24-2024 Patient encounter procedure Cristian R NILL [facility] [employer] Start: 03-03-2024 End: 03-03-2024 ambulatory Cristian R NILL Facility:CD:[id number] Start: 01-27-2024 End: 01-27-2024 ambulatory PETER RUSH Facility: [place] Start: 01-27-2024 End: 01-27-2024 Patient encounter procedure Cristian R NILL [facility] [place] Start: 12-26-2023 ambulatory Cristian JARAMILLOL Facility:[facility] Start: 12-23-2023 End: 12-23-2023 ambulatory [facility] Work Phone: Start: 12-23-2023 End: 12-23-2023 Patient encounter procedure [facility] Work Phone: Start: 07-02-2023 End: 07-02-2023 ambulatory Peter Rush Other [employer] Other Start: 07-02-2023 Telephone encounter Peter ARELLANO [facility] Start: 09-26-2022 End: 09-27-2022 ambulatory YOLANDA GUTIERREZ Facility:[facility] Start: 09-26-2022 End: 09-26-2022 Subsequent hospital visit by physician Brittany [facility] 2 Work Phone: [facility] Radiology Ultrasound Comment on above: Polyp of colon, unsp ecified part of colon, unspecified type [K63.5] Start: 09-25-2022 End: 09-25-2022 ambulatory YOLANDA GUTIERREZ Facility:[facility] Start: 09-25-2022 End: 09-25-2022 Patient encounter procedure Yolanda Gutierrez MD Work Phone: Gastroenterology Comment on above: Polyp of colon, unsp ecified part of colon, unspecified type (Primary Dx); Liver hemangioma Start: 08-31-2022 End: 08-31-2022 ambulatory Peter Rush Other [employer] Other Start: 08-31-2022 Telephone encounter Peter ARELLANO [facility] Start: 08-26-2022 End: 08-26-2022 ambulatory Peter Rush Other [employer] Other Start: 08-26-2022 Patient encounter procedure Peter CHARLES [facility] Start: 01-11-2022 End: 01-12-[address] PETER RUSH Facility:[facility] Start: 04-06-2021 End: 04-07-[address] PETER RUSH Facility:[facility] Start: 02-20-2021 End: 02-20-[address] PETER RUSH Facility: Start: 04-04-2020 Adult health examination Peter Rush Other [facility] [employer] Other Procedures Date Procedure Procedure Detail Performing Clinician Start: 03-03-2024 Colonoscopy Cristian NILL Start: 03-03-2024 Esophagogastroduodenoscopy Cristian NILL Start: 09-26-2022 Us abdominal real time w/image limited Yolanda Gutierrez MD Work Phone: Start: 06-09-2013 Colonoscopy Yolanda Gutiererz MD Work Phone: Start: 06-09-2013 Colonoscopy Cristian [...] Start: 09-26-2025 Diabetes Screening Diabetes Screenin g [facility] Start: 06-09-2023 Colonoscopy COLONOSCOPY [facility] Start: 06-09-2023 COLORECTAL CANCER SCREENING COLORECTAL CANCER SCREENING [facility] Start: 01-24-2023 Covid-19 Vaccine ( season) Covid-19 Vaccine () [facility] Start: 01-24-2023 Influenza vaccination Influenza Vacc ine (#1) [facility] Start: 09-25-2022 End: 11-25-2022 CBC W Auto Differential panel - Blood CBC + DIFF Lab Routine Polyp of colon, unspecified part of colon, unspecified type Liver hemangioma Expected: 09/25/2022, Expires: 11/25/2022 [facility] Work Phone: Comment on above: Expected: 09/25/2022 , Expires: 11/25/2022 Start: 09-25-2022 End: 11-25-2022 Comprehensive metabolic 2000 panel - Serum or Plasma COMP METABOLIC PANEL Lab Routine Polyp of colon, unspecified part of colon, unspecified type Liver hemangioma Expected: 09/25/2022, Expires: 11/25/2022 [facility] Work Phone: Comment on above: Expected: 09/25/2022 , Expires: 11/25/2022 Start: 2022 ADVANCE DIRECTIVE DISCUSSION ADVANCE DIRECTIVE DISCUSSION [facility] Start: 2022 BONE DENSITY BONE DENSITY [facility] Start: 2022 Bone Density Screening Bone Density Screening [facility] Start: 2022 Pneumococcal Vaccine : 65+ (1 - PCV) Pneumococcal Vaccine: 65+ (1 - PCV) [facility] Start: 2022 PNEUMOCOCCAL: 65+ (1 - PCV) PNEUMOCOCCAL: 65+ (1 - PCV) [facility] Start: 05-26-2022 DEPRESSION ASSESSMENT DEPRESSION ASS ESSMENT [facility] Start: 09-29-2020 COVID-19 VACCINE (2 - Booster for Roe series) COVID-19 VACCINE (2 - Booster for Roe series) [facility] Start: 04-26-2018 DIABETES SCREEN DIABETES SCREEN [facility] Start: 2017 RSV Vaccine (1 - 1-d ose 60+ series) RSV Vaccine (1 - 1-dose 60+ series) [facility] Start: 2007 SHINGRIX VACCINE (1 of 2) SHINGRIX VACCINE (1 of 2) [facility] Start: 2002 COLOGUARD (FIT-DNA) COLOGUARD (FIT-D NA) [facility] Start: [address] COLONOGRAPHY [facility] Start: 2002 FECAL OCCULT BLOOD FECAL OCCULT BLOO D [facility] Start: 2002 Lipid 1996 panel - S fernando or Plasma Lipid Screening [facility] Start: 2002 LIPID SCREEN LIPID SCREEN [facility] Start: 2002 SIGMOIDOSCOPY SIGMOIDOSCOPY [facility] Start: 1997 Mammography [facility] Start: 1976 Urine microalbumin profile [facility] Start: 1975 HEPATITIS C SCREENING HEPATITIS C SC REENING [facility] Start: 1975 HIV SCREENING HIV SCREENING [facility] End: 09-26-2023 COLONOSCOPY DIAGNOSTIC COLONOSCOPY DIAGNOSTIC Endoscopy Routine Polyp of colon, unspecified part of colon, unspecified type Liver hemangioma 1 Occurrences starting 09/25/2022 until 09/26/2023 [facility] Work Phone: Comment on above: 1 Occurrences starti ng 09/25/2022 until 09/26/2023 End: 10-25-2023 US ABD RIGHT UPPER QUADRANT US ABD RIGHT UPPER QUADRANT Radiology Routine Polyp of colon, unspecified part of colon, unspecified type Liver hemangioma 1 Occurrences starting 09/25/2022 until 10/25/2023 [facility] Work Phone: Comment on above: 1 Occurrences starti ng 09/25/2022 until 10/25/2023 XR Knee - right 4 Views [facility] Immunizations Immunization Date Immunization Notes Care Provider Berkley boland 04-09-2022 influenza, high dose seasonal, preservative-free Peter Rush Other [facility] [employer] Other 04-09-2022 influenza virus vaccine, split virus (incl. purified surface antigen) Peter Rush Other [employer] [facility] [employer] Other 04-09-2022 influenza virus vaccine, unspecified formulation Ultra 2 Work Phone: [facility] 03-24-2021 influenza virus vaccine, split virus (incl. purified surface antigen) Peter Rush Other [employer] [facility] [employer] Other 03-24-2021 influenza virus vaccine, unspecified formulation [facility] 03-12-2021 COVID-19 Vaccine Roe - Documentation Purposes Only Peter Rush Other [facility] 02-23-2017 tetanus and diphther ia toxoids, adsorbed, preservative free, for adult use (5 Lf of tetanus toxoid and 2 Lf of diphtheria toxoid) Peter Rush Other [facility] 03-15-2016 tetanus and diphther ia toxoids, adsorbed, preservative free, for adult use (5 Lf of tetanus toxoid and 2 Lf of diphtheria toxoid) Peter Rush Other [facility] Payers Date Payer Category Payer Unknown [id number] 2022 Unknown MMO MMO MEDICARE SUPPLEMENT [id number] 2022-Present [phone] [address] [place] [address] Indemnity [id number] 2022 Medicare [id number] 2022 Medicare MEDICARE MEDICAR E A AND B [id number] 2022-Present [phone] [address] [address] [place] [address] Medicare [id number] 1959 Unknown [id number] 1957 Unknown [id number] 1957 Unknown [id number] 1957 Unknown [id number] 1957 Unknown [id number] 1957 Unknown [id number] 1957 Unknown [id number] Private Health Insurance [facility] [employer] [id number] Social History Date Type Detail Facility Start: 09-02-2018 End: 09-25-2022 Sex Assigned At [facility] Start: 08-24-2013 End: 03-23-2024 Tobacco smoking status OKIS Never smoked tobacco [facility] Start: 08-24-2013 Tobacco use and exposure Smokeless tobacco non-user [facility] Start: 09-02-2018 Alcohol intake Current drinke r of alcohol (finding) [facility] Start: 08-24-2013 [facility] Start: 1955 Sex Assigned At Female C [facility] Start: 09-02-2018 End: 09-25-2022 History of Social function [facility] National Score (1-100), lower number is lower risk 67 [facility] Start: 04-11-2021 Gender identity Identifies as female gender (finding) [facility] Start: 11-24-2023 Tobacco smoking stat us OKIS Ex-smoker (finding) [facility] Medical Equipment Procedure Code Equipment Code Equipment Origin al Text Equipment Identifier Dates Aif-Cf-U-Kind Implant - Crushed Cancellous 15cc [id number] Start: 07-19-2016 Comment on above: Description: ONE-OF- A-KIND IMPLANT - Crushed Cancellous 15cc. Brought into room at 0840. Handed sterily to field by Donovan Christensen RN to Abigail Hayes CAN CUTTER at 1015. Also handled by Moe Ulrich MD, and Abigail Carey MD. No preparation required. Plate Lcp Long T Stainless Steel 61mm Bone 2 Hole Variable Angle Fusion - [id number] Start: 07-19-2016 Screw Lcp 2.7mm T8 Stainless Steel 22mm Bone Variable Angle Lock Self Tap - [id number]_[facility] Start: 07-19-2016 Washer Surfix 3.5mm Stainless Steel Orthopedic Lock Midfoot - [id number] Start: 07-19-2016 Functional Status Date Assessment Result Facility 03-24-2024 Functional Status N/A [facility] [place] 01-27-2024 Functional Status N/A [facility] [place] Clinical Notes 08-26-2022 to 01-27-2024 Patient InstructionsYolanda [...] Status SARS-CoV-2 (COVID-19) Ad26 vaccine 08/04/2020 Recorded [facility] Comment on above: Result Comment: Elec [...] If you do not have a responsible public transit trolley driver (family member or friend) with you [...] If you do not have a responsible public transit trolley driver (family member or friend) with you to take you home, your exam cannot be done with sedation and will be cancelled. Please bring a list of all of your current medications, including any Wbex-hpv-[id number] medications with you. Medications If you take [...] exam. 2 04/2019 documented in this encounter [facility] 09-25-2022 History and physical note Hepatology [facility] consult by Dr Rush for liver lesions [...] cc dr Rush documented in this encounter [facility] 08-31-2022 Evaluation note Encounter Date Diagnosis Assessment Notes Aug, Menopause (ICD-10 - Z78.0) [employer] Other 04-03-2023 Evaluation note* Encounter Date Diagnosis [...] and consequences of not detecting early cancer [facility] [employer] Other Evaluation + Plan note No data available for this section [facility] [place] Evaluation note* Diagnosis Polyp of colon, unspecified part of colon, unspecified type- Primary Liver hemangioma Hemangioma of intra-abdominal structures [facility] Diagnosis Polyp of colon, unspecified part of colon, unspecified type Liver hemangioma Hemangioma of intra-abdominal structures documented in this encounter [facility]No [facility] [employer] Other Evaluation note* Diagnosis Onset Date Resolution Status Cavernous hemangioma of liver acute Knee pain, bilateral acute Menopause acute Obesity acute [facility] annual wellness visit, initial noneactive Screening mammogram for breast cancer noneactive [facility] Work Phone: History general Narrative - [...] History hysterectomy Hospitalization History c section, childbirth [facility] [employer] Other Hospital Discharge instructions No data available for this section [facility] Progress note No data available for this section [facility] [place] Reason for referral (narrative)* Outpatient Procedure (Routine) - Authorized Specialty Diagnoses / Procedures Referred By Ernst berry Referred To Contact [facility] Diagnoses Polyp of colon, unspecified part of colon, unspecified type Liver hemangioma Procedures COLONOSCOPY DIAGNOSTIC COLONOSCOPY FLX DX W/COLLJ SPEC WHEN PFRMD Yolanda Stafford MD [address] [place] [address] [facility] [place] [address] Referral ID Status Reason Start Date Expiration Date Visits Requested Visits Authorized [id number] Authorized Auto-Generat ed Referral 09/25/2022 09/26/2023 1 1 * Diagnostic Procedure Only (Routine) - Authorized Specialty Diagnoses / Procedures Referred By Ernst berry Referred To Contact [facility] Diagnoses Polyp of colon, unspecified part of colon, unspecified type Liver hemangioma Procedures US ABD RIGHT UPPER QUADRANT US ABDOMINAL REAL TIME W/IMAGE LIMITED Yolanda Stafford MD [address] [place] [address] [facility] Referral ID Status Reason Start Date Expiration Date Visits Requested Visits Authorized [id number] Authorized Auto-Generat ed Referral 09/25/2022 10/25/2023 1 1 [facility] for referral (narrative)* Diagnostic Procedure Only (Routine) - Closed Specialty Diagnoses / Procedures Referred By Ernst berry Referred To Contact [facility] IMAGING Diagnoses Polyp of colon, unspecified part of colon, unspecified type Liver hemangioma Procedures US ABD RIGHT UPPER QUADRANT US ABDOMINAL REAL TIME W/IMAGE LIMITED Yolanda Stafford MD [address] [place] [address] [place] [facility] Referral ID Status Reason Start Date Expiration Date V isits Requested Visits Authorized [id number] Closed Auto-Generate d Referral 09/25/2022 10/25/2023 1 1 [facility] for visit Narrative* Diagnostic Procedure Only (Routine) - Closed Specialty Diagnoses / Procedures Referred By Contac t Referred To Contact US IMAGING Diagnoses Polyp of colon, unspecified part of colon, unspecified type Liver hemangioma Procedures US ABD RIGHT UPPER QUADRANT US ABDOMINAL REAL TIME W/IMAGE LIMITED Yolanda Stafford MD [address] [place] [address] Us Imaging [place] [address] Referral ID Status Reason Start Date Expiration Date V isits Requested Visits Authorized [id number] Closed Auto-Generate d Referral 09/25/2022 10/25/2023 1 1 [facility] Summary Purpose Family History No Family History Records Found Relationship Condition Age at Onset Recorded Date/T rakan brother Asthma Unknown father Malignant neoplasm Unknown Family history of lung cancer Unknown mother Family history of mental disorder Unknown Advance Directives No Advanced Directives Records FoundDocuments on File Type Date 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 DATE CREATED AUTHOR AUTHOR'S ORGANIZ ATION 10/04/2022 [facility] DATE CREATED AUTHOR AUTHOR'S ORGANIZ ATION 03/26/2024 [facility] REASON FOR VISIT (unrecogniz ed section and content) Reason Comments New Patient Source Comments (unrecognize d section and content) In the event this informatio n is protected by the Federal Confidentiality of Alcohol and Drug Abuse Patient Records regulations: The Federal rules restrict any use of the information to criminally investigate or prosecute any alcohol or drug abuse patient.[facility] the event this information is protected by the Federal Confidentiality of Alcohol and Drug Abuse Patient Records regulations: The Federal rules restrict any use of the information to criminally investigate or prosecute any alcohol or drug abuse patient.[facility] Care Teams (unrecognized sec tion and content) Health Promotion Coordinator Relationship Specialty Start Date End Date Peter Rush DO PCP - General Internal Medicine 09/11/12 Health Promotion Coordinator Relationship Specialty Start Date End Date Peter [...] BE BASED ON THE PRIMARY CLINICAL RECORDS. [facility] [email or web address] [facility]. provides no warranty or guarantee of the accuracy or completeness of information in this document.
--- NOTE | 2024-07-12 12:42 | P.CN_ITS ---
Consult Note: HPI Data of Consult Patient: new to practice Consult date: 07/12/24 Requesting Physician: Felisa Ruiz MD Primary Care Provider: Peter Rush DO Consult Narrative Reason for consult: bilateral knee pain Narrative: 69yof who presents for evaluation. longstanding bilateral knee pain, is schedul ed to have major foot surgery this summer and will be on knee scooter. has had steroid injection in the past, with some benefit. engages in a series of provider directed home exercises >6 weeks, without significant benefit. uses celebrex as needed. denies adverse med side effects. cc:: CC: Felisa Ruiz MD Review of Systems ROS Status of ROS 10 or more systems reviewed and unremark able except as noted in history and below [facility] PONV (postoperative nausea and vomiting) ?R11.2 - Nausea with vomiting, unspecified (ICD-10) ?Z98.890 - Other specified postprocedural states (ICD-10) Liver lesion ?K76.9 - Liver disease, unspecified (ICD-10) Malignant neoplasm of colon ?C18.9 - Malignant neoplasm of colon, unspecified (ICD-10) Hepatic hemangioma ?D18.03 - Hemangioma of intra-abdominal structures (ICD-10) Obesity ?E66.9 - Obesity, unspecified (ICD-10) GERD (gastroesophageal reflux disease) ?K21.9 - Gastro-esophageal reflux disease without esophagitis (ICD-10) Surgical History H/O foot surgery ?Z98.890 - Other specified postprocedural states (ICD-10) History of lithotripsy ?Z98.890 - Other specified postprocedural states (ICD-10) History of total abdominal hysterectomy and bilateral salpingo-oophorectomy ?Z90.710 - Acquired absence of both cervix and uterus (ICD-10) ?Z90.722 - Acquired absence of ovaries, bilateral (ICD-10) ?Z90.79 - Acquired absence of other genital organ(s) (ICD-10) Hx of lumbosacral spine surgery ?Z98.890 - Other specified postprocedural states (ICD-10) H/O excision of hemangioma ?Z98.890 - Other specified postprocedural states (ICD-10) ?Z86.018 - Personal history of other benign neoplasm (ICD-10) H/O cystoscopy ?Z98.890 - Other specified postprocedural states (ICD-10) History of cholecystectomy ?Z90.49 - Acquired absence of other specified parts of digestive tract (ICD- 10) H/O esophagogastroduodenoscopy ?Z98.890 - Other specified postprocedural states (ICD-10) H/O colonoscopy ?Z98.890 - Other specified postprocedural states (ICD-10) Family History Father Family history of cancer Other Atrial fibrillation Dementia Family history of stroke Parkinsons Social History Within the past year, how often did you have a drink containing alcohol: monthly or less Within the past year, how often did you have six or more drinks on one occasion: never Smoking status: Never smoker Second hand tobacco smoke exposure: No Non-prescribed substance use: denies use Previous occupational history: Retired Highest level of school completed/degree received: some college, no degree Meds Home Medications and Allergies Home Medications ?Medication ?Instructions ?Recorded ?Confirmed ?Type celecoxib 200 mg capsule 200 mg PO DAILY 02/20/24 03/03/24 History estradiol 0.01% (0.1 mg/gram) 1 appful vaginal DAILY 02/20/24 02/20/24 History vaginal cream omeprazole 40 mg capsule,delayed 40 mg PO DAILY 02/20/24 03/03/24 History release aspirin 81 mg capsule 81 mg PO DAILY 03/03/24 03/03/24 History krill oil 500 mg capsule 500 mg PO DAILY 03/03/24 03/03/24 History pantoprazole 40 mg tablet,delayed 40 mg PO BID 30 days #60 tabs 03/03/24 Rx release (Protonix) Allergies Allergy/AdvReac Type Severity Reaction Status Date / Time morphine AdvReac Unknown Hypotension Verified 03/03/24 06:36 Exam Narrative Exam Narrative: Psych-alert and oriented x 3.? Attentive and appropriate, constitutionally normal, displays normal mood and affect per situation.? There are no obvious deficits in memory, reasoning, or intellect. Extremities-lower extremities are warm with minimal edema and palpable pulses. Knee-examination of the bilateral knee reveals tenderness to palpation over the superior, inferior, lateral, and medial aspect of the knee.? Some swelling is noted without erythema. Pain is elicited with flexion and extension of the knee both actively and passively.? Some grinding is noted with these motions.? There is no notable ligamental laxity or instability.? Coordination remains intact.? Gait remains antalgic. Assessment and Plan Assessment and Plan (1) Osteoarthritis of knees, bilateral: Qualifiers: Osteoarthritis type: primary Qualified Code(s): M17.0 - Bilateral primary osteoarthritis of knee Plan 69yof who presents for evaluation. failed conservative measures, as noted. imaging reviewed, which is significant for bilateral knee osteoarthritis. given symptoms and imaging, prudent to attempt bilateral knee injections. she is in agreement. may also benefit from bilateral genicular nerve blocks under fluoroscopic guidance at some point in the future. meds reviewed, no changes. follow up after procedure. Procedure: Bilateral knee injection Medications: Durolane (right knee), bupivacaine 0.25% 4 + depomedrol 40mg (left knee) I explained the details of the procedure to the patient including the risks, benefits and alternatives. We had an informed discussion and the patient verbalized understanding and signed the consent form. All questions were answered appropriately.? A time out was performed.? After obtaining a comfortable seated position, the left knee was prepped with alcohol x3. A syringe containing the above medication was attached to a 25 gauge, 1.5 inch needle under strict aseptic technique. The lateral tibial plateau was palpated.? The needle was then advanced through the subcutaneous tissue in a medial and superior direction towards the joint space.? The contents of the syringe were gently injected without any resistance. The needle was removed and pressure was applied to the injection site to decrease the incidence of ecchymosis and hematoma formation. The same procedure was then completed on the opposite side.? A sterile bandage was applied.
== END 2024-07-12 11:35 | disposition home or self-care (01) ==
LOC: PM 11:35
PROVIDERS: PCP Internal Medicine; Visit Provider Anesthesiology
DX: M17.0 Bilateral primary osteoarthritis of knee (principal)
CPT/HCPCS: 20610; J0665; J1010; J7318

== ENCOUNTER 2024-10-11 07:25 | Day surgery (SDC) | payer MEDICARE, OTHER, SELFPAY ==
--- OUTSIDE RECORDS SUMMARY | 2024-10-11 07:28 | XMS_ITS | CCD ---
Author Organization [facility] Care Team Providers Care Tape Transferrer Name Role Phone VICTOR MANUEL, DR COBIAN [...] Unavailable WEST, DR DEMETRIS Patel Consulting Unavailable Peter Rush Unavailable Peter Rush DO Primary Care Provider YOLANDA STAFFORD Attending Unavailabl e VICTOR MANUEL, PETER [facility] Unavailable YOLANDA STAFFORD Referring Unavailabl e VICTOR MANUEL, PETER [facility] Unavailable YOLANDA STAFFORD Referring Unavailabl e VICTOR MANUEL, PETER [facility] Unavailable PETER RUSH Primary Care Physician [phone] Cristian CINTRON Attending Unavailable BALL, PETER Referring Unavailable NILL, Cristian Hanson Attending Unavailable NILL, Cristian Hanson Attending Unavailable Joseph WILSON, Felisa Gauthier Attending Unavailable Allergies Allergy Classification Reported Allergen(s) Allergy Type Date of Onset Reaction(s) Facility (4 sources) Morphine; Translations: [MORPHINE] Drug Allergy 3 [facility] (7 sources) Morphine; Translations: [morphine] Drug Allergy 3 Other: See Comments, Patient reported problems (finding) [facility] (3 sources) Latex; Translations: [LATEX] Drug Allergy 3 Rash [facility] (1 source) patient allergy list reviewed by nurse or physicia Propensity to adverse reactions 8 Comment:Done P2i Other Medications Current Medications Medication Drug Class(es) [...] tw o times a week. estrogens, conjugated (fdc) 0.625 mg/ml vaginal cream (3 sources) Estrogen [...] Start: 02-26-2013 take 1 capsule by mo uth once daily omeprazole (PRILOSEC) 10 mg capsule [...] Date: 03/18/24 Status: Ordered polyethylene glycol 3350 381087 mg / potassium chloride 2970 mg / sodium bicarbonate 6740 mg / sodium chloride 5860 mg / sodium sulfate 11856 mg powder for oral solution (1 source) [...] Visit Summary Ambulatory Visit Summary BETTINA REED :1955 Visit Date:03/24/2024 Ambulatory Visit Instructions Your Care Team Attending Physician - Cristian CINTRON MD Primary Care Physician - VICTOR MANUEL CHAIREZ, [...] you for choosing us for your care. Ike Kaur [facility] General Surgery Office/Clini c Noteon 03-24-2024 General [...] (COVID-19) Ad26 vaccine 08/04/2020 Recorded Normal [facility] Comment on above: Result Comment: Elec queally Signed By: ABDULAZIZ WILSON, Cristian Doshi\Date and Time Signed: 03/24/24 16:23 EDT Reminderson 03-04-2024 Reminders Reminders From: Patti Douglas LPN To: GSN - Clinical; Sent: 03/04/2024 14:13:04 EDT Show up: 02/01/2034 07:00:00 EDT Subject: colonoscopy recall Due Date/Time: 03/03/2034 07:00:00 EDT Reminder/Recall Patient due for screening colonoscopy 03/03/2034. Normal [facility] CBC W Auto Differential pane l (Bld)on 09-26-2022 Basophils (Bld) [#/Vol] 0.04 10*3/uL Normal <0.11 [facility] Comment on above: Order Comment: Speci men Type: BLOOD SPECIMEN [facility] Address: [address] [address] Performed By: #### 5 7021-8 #### [facility] CLIA [id number] [address] [facility] [place] Basophils/100 WBC (Bld) 0.7 % Normal [facility] Comment on above: Order Comment: Speci men Type: BLOOD SPECIMEN [facility] Address: [address] [address] Performed By: #### 5 7021-8 #### [facility] CLIA [id number] [place] [address] [place] Differential cell count method Nom (Bld) Auto Normal [facility] Comment on above: Order Comment: Speci men Type: BLOOD SPECIMEN [facility] Address: [address] [address] Performed By: #### 5 7021-8 #### [facility] CLIA [id number] [address] [place] [address] [place] Eosinophils (Bld) [#/Vol] 0.04 10*3/uL Normal <0.46 [facility] Comment on above: Order Comment: Speci men Type: BLOOD SPECIMEN [facility] Address: [address] [address] Performed By: #### 5 7021-8 #### [facility] CLIA [id number] [address] [place] [address] [place] Eosinophils/100 WBC (Bld) 0.7 % Normal [facility] Comment on above: Order Comment: Speci men Type: BLOOD SPECIMEN [facility] Address: [address] [address] Performed By: #### 5 7021-8 #### [facility] IA [id number] [address] [place] [address] [place] Erythrocyte distribution width (RBC) [Ratio] 12.2 % Normal 11.5-15.0 [facility] Comment on above: Order Comment: Speci men Type: BLOOD SPECIMEN [facility] Address: [address] [address] Performed By: #### 5 7021-8 #### [facility] IA [id number] [address] [place] [address] [place] Hematocrit (Bld) [Volume fraction] 43.6 % Normal 36.0-46.0 [facility] Comment on above: Order Comment: Speci men Type: BLOOD SPECIMEN [facility] Address: [address] [address] Performed By: #### 5 7021-8 #### [facility] CLIA [id number] [place] [address] [place] Hemoglobin (Bld) [Mass/Vol] 14.4 g/dL Normal 11.5-15.5 [facility] Comment on above: Order Comment: Speci men Type: BLOOD SPECIMEN [facility] Address: [address] [address] Performed By: #### 5 7021-8 #### [facility] IA [id number] [address] [place] [address] [place] Immature granulocytes (Bld) [#/Vol] 10*3/uL Normal <0.10 [facility] Comment on above: Order Comment: Speci men Type: BLOOD SPECIMEN [facility] Address: [address] [address] Performed By: #### 5 7021-8 #### [facility] IA [id number] [address] [place] [address] [place] Immature granulocytes/100 WBC (Bld) 0.3 % Normal [facility] Comment on above: Order Comment: Speci men Type: BLOOD SPECIMEN [facility] Address: [address] [address] Performed By: #### 5 7021-8 #### [facility] IA [id number] [address] [place] [address] [place] Lymphocytes (Bld) [#/Vol] 1.48 10*3/uL Normal 1.00-4.00 [facility] Comment on above: Order Comment: Speci men Type: BLOOD SPECIMEN [facility] Address: [address] [address] Performed By: #### 5 7021-8 #### [facility] IA [id number] [address] [place] [address] [place] Lymphocytes/100 WBC (Bld) 25.8 % Normal [facility] Comment on above: Order Comment: Speci men Type: BLOOD SPECIMEN [facility] Address: [address] [address] Performed By: #### 5 7021-8 #### [facility] IA [id number] [address] [place] [address] [place] MCH (RBC) [Entitic mass] 30.5 pg Normal 26.0-34.0 [facility] Comment on above: Order Comment: Speci men Type: BLOOD SPECIMEN [facility] Address: [address] [address] Performed By: #### 5 7021-8 #### [facility] IA [id number] [address] [place] [address] [place] MCHC (RBC) [Mass/Vol] 33.0 g/dL Normal 30.5-36.0 [facility] Comment on above: Order Comment: Speci men Type: BLOOD SPECIMEN [facility] Address: [address] [address] Performed By: #### 5 7021-8 #### [facility] IA [id number] [address] [place] [address] [place] MCV (RBC) [Entitic vol] 92.4 fL Normal 80.0-100.0 [facility] Comment on above: Order Comment: Speci men Type: BLOOD SPECIMEN [facility] Address: [address] [address] Performed By: #### 5 7021-8 #### [facility] IA [id number] [address] [place] [address] [place] Monocytes (Bld) [#/Vol] 0.55 10*3/uL Normal <0.87 [facility] Comment on above: Order Comment: Speci men Type: BLOOD SPECIMEN [facility] Address: [address] [address] Performed By: #### 5 7021-8 #### [facility] IA [id number] [address] [place] [address] [place] Monocytes/100 WBC (Bld) 9.6 % Normal [facility] Comment on above: Order Comment: Speci men Type: BLOOD SPECIMEN [facility] Address: [address] [address] Performed By: #### 5 7021-8 #### [facility] IA [id number] [place] [address] [place] Neutrophils (Bld) [#/Vol] 3.61 10*3/uL Normal 1.45-7.50 [facility] Comment on above: Order Comment: Speci men Type: BLOOD SPECIMEN [facility] Address: [address] [address] Performed By: #### 5 7021-8 #### [facility] CLIA [id number] [address] [place] [address] [place] Neutrophils/100 WBC (Bld) 62.9 % Normal [facility] Comment on above: Order Comment: Speci men Type: BLOOD SPECIMEN [facility] Address: [address] [address] Performed By: #### 5 7021-8 #### [facility] CLIA [id number] [address] [place] [address] [place] Nucleated RBC (Bld) [#/Vol] 10*3/uL Normal <0.01 [facility] Comment on above: Order Comment: Speci men Type: BLOOD SPECIMEN [facility] Address: [address] [address] Performed By: #### 5 7021-8 #### [facility] CLIA [id number] [address] [place] [address] [place] Nucleated RBC/100 WBC (Bld) [Ratio] 0.0 /100 WBC Normal [facility] Comment on above: Order Comment: Speci men Type: BLOOD SPECIMEN [facility] Address: [address] [address] Performed By: #### 5 7021-8 #### [facility] CLIA [id number] [address] [place] [address] [place] Platelet mean volume (Bld) [Entitic vol] 9.2 fL Normal 9.0-12.7 [facility] Comment on above: Order Comment: Speci men Type: BLOOD SPECIMEN [facility] Address: [address] [address] Performed By: #### 5 7021-8 #### [facility] CLIA [id number] [address] [place] [address] [place] Platelets (Bld) [#/Vol] 267 10*3/uL Normal 150-400 [facility] Comment on above: Order Comment: Speci men Type: BLOOD SPECIMEN [facility] Address: [address] [address] Performed By: #### 5 7021-8 #### [facility] CLIA [id number] [address] [place] [address] [place] RBC (Bld) [#/Vol] 4.72 10*6/uL Normal 3.90-5.20 [facility] Comment on above: Order Comment: Speci men Type: BLOOD SPECIMEN [facility] Address: [address] [place] [address] Performed By: #### 5 7021-8 #### [facility] IA [id number] [address] [place] WBC (Bld) [#/Vol] 5.74 10*3/uL Normal 3.70-11.00 [facility] Comment on above: Order Comment: Speci men Type: BLOOD SPECIMEN [facility] Address: [address] [place] [address] Performed By: #### 5 7021-8 #### [facility] IA [id number] [address] [place] Comprehensive metabolic 2000 panelon 09-26-2022 Albumin [Mass/Vol] 4.6 g/dL Normal 3.9-4.9 [facility] Comment on above: Order Comment: Speci men Type: BLOOD SPECIMEN [facility] Address: [address] [place] [address] Performed By: #### 2 4323-8 #### [facility] CLIA [id number] [address] [place] [address] [place] ALP [Catalytic activity/Vol] 89 U/L Normal 34-123 [facility] Comment on above: Order Comment: Speci men Type: BLOOD SPECIMEN [facility] Address: [address] [address] Performed By: #### 2 4323-8 #### [facility] CLIA [id number] [address] [place] [address] [place] ALT [Catalytic activity/Vol] 28 U/L Normal 7-38 [facility] Comment on above: Order Comment: Speci men Type: BLOOD SPECIMEN [facility] Address: [address] [address] Performed By: #### 2 4323-8 #### [facility] CLIA [id number] [address] [place] [address] [place] Anion gap [Moles/Vol] 9 mmol/L Normal 9-18 [facility] Comment on above: Order Comment: Speci men Type: BLOOD SPECIMEN [facility] Address: [address] [address] Performed By: #### 2 4323-8 #### [facility] CLIA [id number] [address] [place] [address] [place] AST [Catalytic activity/Vol] 21 U/L Normal 13-35 [facility] Comment on above: Order Comment: Speci men Type: BLOOD SPECIMEN [facility] Address: [address] [address] Performed By: #### 2 4323-8 #### [facility] CLIA [id number] [address] [place] [address] [place] Bilirubin [Mass/Vol] 0.5 mg/dL Normal 0.2-1.3 [facility] Comment on above: Order Comment: Speci men Type: BLOOD SPECIMEN [facility] Address: [address] [address] Performed By: #### 2 4323-8 #### [facility] CLIA [id number] [address] [place] [address] [place] Calcium [Mass/Vol] 9.7 mg/dL Normal 8.5-10.2 [facility] Comment on above: Order Comment: Speci men Type: BLOOD SPECIMEN [facility] Address: [address] [place] [address] Performed By: #### 2 4323-8 #### [facility] CLIA [id number] [address] [place] [address] [place] Chloride [Moles/Vol] 104 mmol/L Normal 97-105 [facility] Comment on above: Order Comment: Speci men Type: BLOOD SPECIMEN [facility] Address: [address] [address] Performed By: #### 2 4323-8 #### [facility] CLIA [id number] [address] [place] [address] [place] CO2 [Moles/Vol] 29 mmol/L Normal 22-30 [facility] Comment on above: Order Comment: Speci men Type: BLOOD SPECIMEN [facility] Address: [address] [place] [address] Performed By: #### 2 4323-8 #### [facility] CLIA [id number] [address] [place] [address] [place] Creatinine [Mass/Vol] 0.68 mg/dL Normal 0.58-0.96 [facility] Comment on above: Order Comment: Speci men Type: BLOOD SPECIMEN [facility] Address: [address] [place] [address] Performed By: #### 2 4323-8 #### [facility] CLIA [id number] [address] [place] [address] [place] ESTIMATED GLOMERULAR FILTRATION RATE 97 mL/min/1.73m??? Normal >=60 [facility] Comment on above: Order Comment: Speci men Type: BLOOD SPECIMEN [facility] Address: [address] [place] [address] Result Comment: Barbara mated Glomerular Filtration Rate [...] GFR. Performed By: #### 2 4323-8 #### [facility] CLIA [id number] [address] [place] [address] [place] Glucose [Mass/Vol] 98 mg/dL Normal 74-99 [facility] Comment on above: Order Comment: Vineet rinaldi Type: BLOOD SPECIMEN [facility] Address: [address] [address] Result Comment: The [place] Diabetes Association (ADA) provides guidance for cutoff [...] Standards of Medical Care in Diabetes 2016, [place] [employer]. Diabetes Care. 2016.39(Suppl 1). Performed By: #### 2 4323-8 #### [facility] CLIA [id number] [address] [place] [address] [place] Potassium [Moles/Vol] 4.6 mmol/L Normal 3.7-5.1 [facility] Comment on above: Order Comment: Vineet rinaldi Type: BLOOD SPECIMEN [facility] Address: [address] Performed By: #### 2 4323-8 #### [facility] CLIA [id number] [address] [place] [address] [place] Protein [Mass/Vol] 7.4 g/dL Normal 6.3-8.0 [facility] Comment on above: Order Comment: Vineet rinaldi Type: BLOOD SPECIMEN [facility] Address: [address] Performed By: #### 2 4323-8 #### [facility] CLIA [id number] [address] [address] [id number] [place] Sodium [Moles/Vol] 142 mmol/L Normal 136-144 [facility] Comment on above: Order Comment: Speci men Type: BLOOD SPECIMEN [facility] Address: [address] [address] Performed By: #### 2 4323-8 #### [facility] CLIA [id number] [address] [place] [address] [place] Urea nitrogen [Mass/Vol] 17 mg/dL Normal 7-21 [facility] Comment on above: Order Comment: Speci men Type: BLOOD SPECIMEN [facility] Address: [address] [address] Performed By: #### 2 4323-8 #### [facility] CLIA [id number] [address] [place] [address] [place] No Panel Informationon 09-26 [facility] US ABD RIGHT UPPER QUADRANTo n 09-26-2022 [...] and could represent the previously described hemangiomas. Director Retirement: DARRELL Transcribe Date/Time: Oct 03 2022 6:03A Dictated by : NAS DENSON MD This examination was interpreted and the report reviewed and electronically signed by: NAS DENSON MD on Oct 03 2022 6:08AM EST [id number] [facility] US ABD SPLEEN -NBon 09-27-19 US ABD SPLEEN -NB * * *Final Report* * * DATE OF EXAM: Sep 26 2022 1:18PM [facility] 1232 - US ABD SPLEEN -NB / [...] and could represent the previously described hemangiomas. Director Retirement: DARRELL Transcribe Date/Time: Oct 03 2022 6:03A Dictated by : NAS DENSON MD This examination was interpreted and the report reviewed and electronically signed by: NAS DENSON MD on Oct 03 2022 6:08AM EST [id number] [facility] CNOVon 09-25-2022 CNOV Office Visit (GASTAV ) BETTINA REED ([id number]) 1955 F Date Time Provider Department 09/25/22 1:30 PM YOLANDA STAFFORD During your visit today, we recorded the following information about you: Weight Height 100.7 kg 1.676 m Yolanda Ta MD 09/25/2022 2:21 PM Signed Hepatology [facility] HPI consult by Dr Rush for liver [...] If you do not have a responsible local company hazmat driver (family member or friend) with you [...] Imodium, Ka (more content not included)... Normal [facility] HISTORY PHYSICALon HISTORY PHYSICAL HNO ID: [id number] Author: Yolanda Gutierrez MD Service: ? Author Type: Physician Type: HANDP Filed: 09/25/2022 2:21 PM Note Text: Hepatology [facility] HPI consult by Dr Rush for liver [...] Yolanda Walters MD cc dr Rush Normal [facility] CULTURE URINEon 01-11-2022 CULTURE URINE Culture Observations : MODERATE GROWTH OF MIXED GENITAL JESUS. NO POTENTIAL PATHOGENS SEEN. Normal [facility] Comment on above: Performed By: #### U RCX #### [facility] [address] [place], [place] [address] Dr. Na Gonzales UA RANDOM W/MICROSCOPICon BACTERIA NONE SEEN Normal NONE SEEN [facility] Comment on above: Performed By: #### U AMIC #### [facility] [address] [place], [place] [address] Dr. Na Gonzales Bilirubin Ql (U) Negative Normal NEGATIVE [facility] Comment on above: Performed By: #### U AMIC #### [facility] [address] [address] [address] Na Gonzales CAST NONE SEEN Normal NONE SEEN [facility] Comment on above: Performed By: #### U AMIC #### [facility] [address] [address] [address] Na Gonzales Clarity (U) CLEAR Normal CLEAR [facility] Comment on above: Performed By: #### U AMIC #### [facility] [address] [address] [address] Na Gonzales Color (U) LT. YELLOW Normal YELLOW [facility] Comment on above: Performed By: #### U AMIC #### [facility] [address] [address] [address] Na Gonzales Crystals LM Nom (Urine sed) NONE SEEN Normal NONE SEEN [facility] Comment on above: Performed By: #### U AMIC #### [facility] [address] [place] [address] Dr. Na Gonzales Epithelial cells LM Ql (Urine sed) NONE SEEN Normal NONE SEEN /RARE [facility] Comment on above: Performed By: #### U AMIC #### [facility] [address] [address] [address] Na Gonzales Glucose Ql (U) Negative Normal NEGATIVE [facility] Comment on above: Performed By: #### U AMIC #### [facility] [address] [place] [address] Dr. Na Gonzales Hemoglobin Ql (U) Negative Normal NEGATIVE [facility] Comment on above: Performed By: #### U AMIC #### [facility] [address] [place] [address] Dr. Na Gonzales Ketones Ql (U) Negative Normal NEGATIVE [facility] Comment on above: Performed By: #### U AMIC #### [facility] [address] [address] [address] Na Gonzales LEUKOCYTES SMALL Abnormal NEGATIVE [facility] Comment on above: Performed By: #### U AMIC #### [facility] [address] [place] [address] Dr. Na Gonzales MUCOUS NONE SEEN Normal NONE SEEN [facility] Comment on above: Performed By: #### U AMIC #### [facility] [address] [address] [address] Na Gonzales Nitrite Ql (U) Negative Normal NEGATIVE [facility] Comment on above: Performed By: #### U AMIC #### [facility] [address] [place] [address] Dr. Na Gonzales pH (U) 6.0 [pH] Normal 5-9 [facility] Comment on above: Performed By: #### U AMIC #### [facility] [address] [place] [address] Dr. Na Gonzales RBC NONE SEEN Abnormal 0-2 [facility] Comment on above: Performed By: #### U AMIC #### [facility] [address] [place] [address] Dr. Na Gonzales SPEC GRAVITY 1.005 Normal 1.005-<=1.02 5 [facility] Comment on above: Performed By: #### U AMIC #### [facility] [address] [place] [address] Dr. Na Gonzales UA PROTEIN Negative Normal NEGATIVE/ TRACE [facility] Comment on above: Performed By: #### U AMIC #### [facility] [address] [place] [address] Dr. Na Gonzales Urobilinogen Qn (U) 0.2 {Irene'U}/dL Normal 0.2 - 1.0 [facility] Comment on above: Performed By: #### U AMIC #### [facility] [address] [place] [address] Dr. Na Gonzales WBC 0-2 Abnormal NONE SEEN [facility] Comment on above: Performed By: #### U AMIC #### [facility] [address] [place] [address] ABD/PELVIS WO CONon [...] DEMETRIS PATEL Date: 2021-04-06 18:26 Normal [facility] CULTURE STOOLon 02-22-2021 CULTURE STOOL Culture Observations : SALMONELLA CALD TO EDNA FELIX LPN@1225/02/21/21/RK Culture Observations: SALMONELLA CALD TO [facility]@1230/02/21/21/RK Culture Observations: SENDING ISOLATE TO [facility] FOR SEROTYPING Isolate 1 Salmonella enterica ssp enterica Heavy growth of ORGANISM 1 Salmonella enterica ssp enterica ANTIBIOTIC M.I.C RX STATUS Ampicillin <=2 S F Ceftazidime <=1 S F Ceftriaxone <=1 S F Ciprofloxacin <=0.25 S F Levofloxacin <=0.12 S F Trimethoprim/Sulfamethoxazole <=20 S F Normal [facility] Comment on above: Performed By: #### S TOOLCX #### [facility] [address] [place] [address] Dr. Na Gonzales CLOSTRIDIUM DIFFICILE PCRon 09-29-2021 C difficile Toxin Gene SHADI Negative Normal Negative [facility] Comment on above: Performed By: #### C TERRANCE #### [facility] [address] [address] [address] Na Gonzales Vital Signs Date Time Vital Sign Value Performing Clinician Facility 01-27-2024 15:15-0400 Blood Pressure Location Cristian JARAMILLOL [facility] 01-27-2024 15:15-0400 Diastolic blood pressure 82 mm[Hg] Cristian NILL [facility] 01-27-2024 15:15-0400 Heart rate 76 /min Cristian [employer] [facility] 01-27-2024 15:15-0400 Respiratory rate 16 /min Cristian JARAMILLOL [facility] 01-27-2024 15:15-0400 Systolic blood pressure 120 mm[Hg] Cristian JARAMILLOL [facility] 12-23-2023 14:36-0400 Body height 167.64 cm [facility] 12-23-2023 14:36-0400 Body mass index (BMI) [Ratio] 35.2 kg/m2 [facility] 12-23-2023 14:36-0400 Body weight 98.93 kg [facility] 12-23-2023 14:36-0400 Diastolic blood pressure 86 mm[Hg] [facility] 12-23-2023 14:36-0400 Heart rate 98 /min [facility] 12-23-2023 14:36-0400 Respiratory rate 12 /min [facility] 12-23-2023 14:36-0400 Systolic blood pressure 141 mm[Hg] [facility] 09-25-2022 13:20-0400 Body height 167.6 cm Yolanda Gutierrez MD Work Phone: [facility] 09-25-2022 13:20-0400 Body weight 100.7 kg Yolanda Gutierrez MD Work Phone: [facility] 08-26-2022 14:30-0400 Body height 166.37 cm Peter Ball Other [facility] 08-26-2022 14:30-0400 Body mass index (BMI) [Ratio] 36.44 kg/m2 Peter Ball Other [facility] Other 08-26-2022 14:30-0400 Body weight 100.88 kg Peter Ball Other [facility] Other 08-26-2022 14:30-0400 Diastolic blood pressure 78 mm[Hg] Peter Ball Other [facility] Other 08-26-2022 14:30-0400 Respiratory rate 12 /min Peter Ball Other [facility] Other 08-26-2022 14:30-0400 Systolic blood pressure 122 mm[Hg] Peter Ball Other [facility] Other Encounters Encounter Date Encounter Type Care Provider Facility Start: 07-12-2024 End: 07-12-2024 ambulatory Felisa Ruiz MD Facility: [facility] Start: 03-24-2024 End: 03-24-2024 ambulatory Cristian CINTRON Facility: [facility] Start: 03-24-2024 End: 03-24-2024 Patient encounter procedure Cristian CINTRON [facility] Start: 03-03-2024 End: 03-03-2024 ambulatory Cristian CINTRON Facility:CD:[id number] Start: 01-27-2024 End: 01-27-2024 ambulatory PETER RUSH Facility: [facility] Start: 01-27-2024 End: 01-27-2024 Patient encounter procedure Cristian CINTRON [facility] General Surgery [facility] Start: 12-26-2023 ambulatory Cristian CINTRON Facility:[facility] Start: 12-23-2023 End: 12-23-2023 ambulatory [facility] Work Phone: Start: 12-23-2023 End: 12-23-2023 Patient encounter procedure [facility] Work Phone: Start: 07-02-2023 End: 07-02-2023 ambulatory Peter Rush Other [facility] Other Start: 07-02-2023 Telephone encounter Peter ARELLANO G [facility] Start: 09-26-2022 End: 09-27-2022 ambulatory YOLANDA GUTIERREZ Facility:[facility] Start: 09-26-2022 End: 09-26-2022 Subsequent hospital visit by physician Brittany [facility] 2 Work Phone: [facility] Ultrasound Comment on above: Polyp of colon, unsp ecified part of colon, unspecified type [K63.5] Start: 09-25-2022 End: 09-25-2022 ambulatory YOLANDA GUTIERREZ Facility:[facility] Start: 09-25-2022 End: 09-25-2022 Patient encounter procedure Yolanda Gutierrez MD Work Phone: Gastroenterology Comment on above: Polyp of colon, unsp ecified part of colon, unspecified type (Primary Dx); Liver hemangioma Start: 08-31-2022 End: 08-31-2022 ambulatory Peter uRsh Other [facility] Other Start: 08-31-2022 Telephone encounter Peter ARELLANO G [facility] Start: 08-26-2022 End: 08-26-2022 ambulatory Peter Rush Other [facility] Other Start: 08-26-2022 Patient encounter procedure Peter [facility] Start: 01-11-2022 End: 01-12-[address] PETER RUSH Facility:[facility] Start: 04-06-2021 End: 04-07-[address] PETER RUSH Facility:[facility] Start: 02-20-2021 End: 02-20-[address] PEETR RUSH Facility:[facility] Start: 04-04-2020 Adult health examination Peter Rush Other [facility] Other Procedures Date Procedure Procedure Detail Performing [...] Start: 09-26-2025 Diabetes Screening Diabetes Screenin g [facility] Start: 06-09-2023 Colonoscopy COLONOSCOPY [facility] Start: 06-09-2023 COLORECTAL CANCER SCREENING COLORECTAL CANCER SCREENING [facility] Start: 01-24-2023 Covid-19 Vaccine ( season) Covid-19 Vaccine ( season) [facility] Start: 01-24-2023 Influenza vaccination Influenza Vacc ine (#1) [facility] Start: 09-25-2022 End: 11-25-2022 CBC W Auto Differential panel - Blood CBC + DIFF Lab Routine Polyp of colon, unspecified part of colon, unspecified type Liver hemangioma Expected: 09/25/2022, Expires: 11/25/2022 [facility] Work Phone: Comment on above: Expected: 09/25/2022 , Expires: 11/25/2022 Start: 09-25-2022 End: 11-25-2022 Comprehensive metabolic 2000 panel - Serum or Plasma COMP METABOLIC PANEL Lab Routine Polyp of colon, unspecified part of colon, unspecified type Liver hemangioma Expected: 09/25/2022, Expires: 11/25/2022 [facility] Work Phone: Comment on above: Expected: 09/25/2022 , Expires: 11/25/2022 Start: 2022 ADVANCE DIRECTIVE DISCUSSION ADVANCE DIRECTIVE DISCUSSION [facility] Start: 2022 BONE DENSITY BONE DENSITY [facility] Start: 2022 Bone Density Screening Bone Density Screening [facility] Start: 2022 Pneumococcal Vaccine : 65+ (1 - PCV) Pneumococcal Vaccine: 65+ (1 - PCV) [facility] Start: 2022 PNEUMOCOCCAL: 65+ (1 - PCV) PNEUMOCOCCAL: 65+ (1 - PCV) [facility] Start: 05-26-2022 DEPRESSION ASSESSMENT DEPRESSION ASS ESSMENT [facility] Start: 09-29-2020 COVID-19 VACCINE (2 - Booster for Roe series) COVID-19 VACCINE (2 - Booster for Roe series) [facility] Start: 04-26-2018 DIABETES SCREEN DIABETES SCREEN [facility] Start: 2017 RSV Vaccine (1 - 1-d ose 60+ series) RSV Vaccine (1 - 1-dose 60+ series) [facility] Start: 2007 SHINGRIX VACCINE (1 of 2) SHINGRIX VACCINE (1 of 2) [facility] Start: 2002 COLOGUARD (FIT-DNA) COLOGUARD (FIT-D NA) [facility] Start: [address] COLONOGRAPHY [facility] Start: 2002 FECAL OCCULT BLOOD FECAL OCCULT BLOO D [facility] Start: 2002 Lipid 1996 panel - S fernando or Plasma Lipid Screening [facility] Start: 2002 LIPID SCREEN LIPID SCREEN [facility] Start: 2002 SIGMOIDOSCOPY SIGMOIDOSCOPY [facility] Start: 1997 Mammography [facility] Start: 1976 Urine microalbumin profile [facility] Start: 1975 HEPATITIS C SCREENING HEPATITIS C SC REENING [facility] Start: 1975 HIV SCREENING HIV SCREENING [facility] End: 09-26-2023 COLONOSCOPY DIAGNOSTIC COLONOSCOPY DIAGNOSTIC Endoscopy Routine Polyp of colon, unspecified part of colon, unspecified type Liver hemangioma 1 Occurrences starting 09/25/2022 until 09/26/2023 [facility] Work Phone: Comment on above: 1 Occurrences starti ng 09/25/2022 until 09/26/2023 End: 10-25-2023 US ABD RIGHT UPPER QUADRANT US ABD RIGHT UPPER QUADRANT Radiology Routine Polyp of colon, unspecified part of colon, unspecified type Liver hemangioma 1 Occurrences starting 09/25/2022 until 10/25/2023 [facility] Work Phone: Comment on above: 1 Occurrences starti ng 09/25/2022 until 10/25/2023 XR Knee - right 4 Views [facility] Immunizations Immunization Date Immunization Notes Care Provider Berkley boland 04-09-2022 influenza, high dose seasonal, preservative-free Peter Rush Other [facility] Other 04-09-2022 influenza virus vaccine, split virus (incl. purified surface antigen) Peter Rush Other [facility] Other 04-09-2022 influenza virus vaccine, unspecified formulation Ultra 2 Work Phone: [facility] 03-24-2021 influenza virus vaccine, split virus (incl. purified surface antigen) Peter Rush Other [facility] Other 03-24-2021 influenza virus vaccine, unspecified formulation [facility] 08-04-2020 COVID-19 Vaccine Roe - Documentation Purposes Only Peter Rush Other [facility] 02-23-2017 tetanus and diphther ia toxoids, adsorbed, preservative free, for adult use (5 Lf of tetanus toxoid and 2 Lf of diphtheria toxoid) Peter Rush Other [facility] 03-15-2016 tetanus and diphther ia toxoids, adsorbed, preservative free, for adult use (5 Lf of tetanus toxoid and 2 Lf of diphtheria toxoid) Peter Rush Other [facility] Payers Date Payer Category Payer Unknown [id number] 2022 Unknown [id number] 2022 Medicare [id number] 2022 Medicare [id number] 1959 Unknown [id number] 1957 Unknown [id number] 1957 Unknown [id number] 1957 Unknown [id number] 1957 Unknown [id number] 1957 Unknown [id number] 1957 Unknown [id number] 1957 Unknown [id number] Private Health Insurance [facility] [employer] [id number] Social History Date Type Detail Facility Start: 09-02-2018 End: 09-25-2022 Sex Assigned At [facility] Start: 08-24-2013 End: 03-23-2024 Tobacco smoking status NCIS Never smoked tobacco [facility] Start: 08-24-2013 Tobacco use and exposure Smokeless tobacco non-user [facility] Start: 09-02-2018 Alcohol intake Current drinke r of alcohol (finding) [facility] Start: 08-24-2013 [facility] Start: 1955 Sex Assigned At Female C [facility] Start: 09-02-2018 End: 09-25-2022 History of Social function [facility] National Score (1-100), lower number is lower risk 65 [facility] General Surgery [facility] Start: 04-11-2021 Gender identity Identifies as female gender (finding) [facility] Start: 11-24-2023 Tobacco smoking stat us NCIS Ex-smoker (finding) [facility] Medical Equipment Procedure Code Equipment Code Equipment Origin al Text Equipment Identifier Dates Cpe-Kx-S-Kind Implant - Crushed Cancellous 15cc [id number] Start: 07-19-2016 Comment on above: Description: ONE-OF- A-KIND IMPLANT - Crushed Cancellous 15cc. Brought into room at 0840. Handed sterily to field by Donovan Christensen RN to Abigail Hayes OILSEED MEAT PRESSER at 1015. Also handled by Moe Ulrich MD, and Abigail Carey MD. No preparation required. Plate Lcp Long T Stainless Steel 61mm Bone 2 Hole Variable Angle Fusion - [id number] Start: 07-19-2016 Screw Lcp 2.7mm T8 Stainless Steel 22mm Bone Variable Angle Lock Self Tap - [id number] Start: 07-19-2016 Washer Surfix 3.5mm Stainless Steel Orthopedic Lock Midfoot - [id number] Start: 07-19-2016 Functional Status Date Assessment Result Facility 03-24-2024 Functional Status N/A [facility]Angy [facility] [place] 01-27-2024 Functional Status N/A [facility]aur[facility]Tit [facility] [place] Clinical Notes 08-26-2022 to 01-27-2024 Patient InstructionsYolanda [...] SARS-CoV-2 (COVID-19) Ad26 vaccine 08/04/2020 Recorded [facility] Comment on above: Result Comment: Elec [...] If you do not have a responsible local company hazmat driver (family member or friend) with you [...] If you do not have a responsible local company hazmat driver (family member or friend) with you to take you home, your exam cannot be done with sedation and will be cancelled. Please bring a list of all of your current medications, including any Fdxv-wto-Zdwwkca medications with you. Medications If you take [...] exam. 2 04/2019 documented in this encounter [facility] 09-25-2022 History and physical note Hepatology [facility] consult by Dr Rush for liver [...] cc dr Rush documented in this encounter [facility] 08-31-2022 Evaluation note Encounter Date Diagnosis Assessment Notes Aug, Menopause (ICD-10 - Z78.0) [facility] Other 04-03-2023 Evaluation note* Encounter Date Diagnosis [...] and consequences of not detecting early cancer [facility] Other Evaluation + Plan note No data available for this section [facility] [place] Evaluation note* Diagnosis Polyp of colon, unspecified part of colon, unspecified type- Primary Liver hemangioma Hemangioma of intra-abdominal structures [facility] Diagnosis Polyp of colon, unspecified part of colon, unspecified type Liver hemangioma Hemangioma of intra-abdominal structures documented in this encounter [facility] Other Evaluation note* Diagnosis Onset Date Resolution Status Cavernous hemangioma of liver acute Knee pain, bilateral acute Menopause acute Obesity acute [facility] annual wellness visit, initial noneactive Screening mammogram for breast cancer noneactive [facility] Work Phone: History general Narrative - [...] History hysterectomy Hospitalization History c section, childbirth [facility] Other Hospital Discharge instructions No data available for this section [facility] Progress note No data available for this section [facility] [place] Reason for referral (narrative)* Outpatient Procedure (Routine) - Authorized Specialty Diagnoses / Procedures Referred By Ernst berry Referred To Contact [facility] Diagnoses Polyp of colon, unspecified part of colon, unspecified type Liver hemangioma Procedures COLONOSCOPY DIAGNOSTIC COLONOSCOPY FLX DX W/COLLJ SPEC WHEN PFRMD Yolanda Stafford MD [address] [place] [address] [facility][note 3] [place] [address] Referral ID Status Reason Start Date Expiration Date Visits Requested Visits Authorized [id number] Authorized Auto-Generat ed Referral 09/25/2022 09/26/2023 1 1 * Diagnostic Procedure Only (Routine) - Authorized Specialty Diagnoses / Procedures Referred By Ernst berry Referred To Contact [facility] IMAGING Diagnoses Polyp of colon, unspecified part of colon, unspecified type Liver hemangioma Procedures US ABD RIGHT UPPER QUADRANT US ABDOMINAL REAL TIME W/IMAGE LIMITED Yolanda Stafford MD [address] [place] [address] [facility] Imaging Referral ID Status Reason Start Date Expiration Date Visits Requested Visits Authorized [id number] Authorized Auto-Generat ed Referral 09/25/2022 10/25/2023 1 1 [facility] for referral (narrative)* Diagnostic Procedure Only (Routine) - Closed Specialty Diagnoses / Procedures Referred By Ernst berry Referred To Contact US IMAGING Diagnoses Polyp of colon, unspecified part of colon, unspecified type Liver hemangioma Procedures US ABD RIGHT UPPER QUADRANT US ABDOMINAL REAL TIME W/IMAGE LIMITED Yolanda Stafford MD [address] [place] [address] Us Imaging [place] [facility] Referral ID Status Reason Start Date Expiration Date V isits Requested Visits Authorized [id number] Closed Auto-Generate d Referral 09/25/2022 10/25/2023 1 1 [facility] for visit Narrative* Diagnostic Procedure Only (Routine) - Closed Specialty Diagnoses / Procedures Referred By Contac t Referred To Contact US IMAGING Diagnoses Polyp of colon, unspecified part of colon, unspecified type Liver hemangioma Procedures US ABD RIGHT UPPER QUADRANT US ABDOMINAL REAL TIME W/IMAGE LIMITED Yolanda Stafford MD [address] [place] [address] Us Imaging [place] [address] Referral ID Status Reason Start Date Expiration Date V isits Requested Visits Authorized [id number] Closed Auto-Generate d Referral 09/25/2022 10/25/2023 1 1 [facility] Summary Purpose Family History No Family History Records Found Relationship Condition Age at Onset Recorded Date/T rakan brother Asthma Unknown father Malignant neoplasm Unknown Family history of lung cancer Unknown mother Family history of mental disorder Unknown Advance Directives No Advanced Directives Records FoundDocuments on File Type Date Recorded Patient [employer] Expl anation Advance Directive(s) 10/13/2013 10:12 PM [...] DATE CREATED AUTHOR AUTHOR'S ORGANIZ ATION 09/27/2022 [facility] DATE CREATED AUTHOR AUTHOR'S ORGANIZ ATION 10/04/2022 [facility] DATE CREATED AUTHOR AUTHOR'S ORGANIZ ATION 03/26/2024 [facility] DATE CREATED AUTHOR AUTHOR'S ORGANIZ ATION 07/16/2024 [facility] REASON FOR VISIT (unrecogniz ed section and content) Reason Comments New Patient Source Comments (unrecognize d section and content) In the event this informatio n is protected by the Federal Confidentiality of Alcohol and Drug Abuse Patient Records regulations: The Federal rules restrict any use of the information to criminally investigate or prosecute any alcohol or drug abuse patient[facility] the event this information is protected by the Federal Confidentiality of Alcohol and Drug Abuse Patient Records regulations: The Federal rules restrict any use of the information to criminally investigate or prosecute any alcohol or drug abuse patient.[facility] Care Teams (unrecognized sec tion and content) Tape Transferrer Relationship Specialty Start Date End Date Peter Rush DO PCP - General Internal Medicine 09/11/12 Tape Transferrer Relationship Specialty Start Date End Date Peter [...] BE BASED ON THE PRIMARY CLINICAL RECORDS. [facility] [employer] [facility]. provides no warranty or guarantee of the accuracy or completeness of information in this document.
[2024-10-11 07:50] VITALS: BP 158/94; PULSE 85; TEMP 36.3; O2SAT 99
[2024-10-11 08:53] VITALS: BP 157/67; BP 157/69; PULSE 78; PULSE 80; O2SAT 95
[2024-10-11] MEDS: METHYLPREDNISOLONE ACETATE 40 MG/ML VIAL 80 MG INJ (08:59)
[2024-10-11] MEDS: BUPIVACAINE HCL 0.25% PF 25 MG/10 ML VIAL 8 ML INJ (08:59)
--- NOTE | 2024-10-11 08:59 | W.PM.PROCNOT ---
Date of procedure: 10/11/24 Pre-op diagnosis: Pain due to bilateral knee osteoarthritis Post-op diagnosis: same as pre-op Procedure: Procedure: Bilateral genicular nerve blocks Medications: Bupivacaine 0.25% 4cc, depomedrol 40mg x2 The patient was taken to the procedures suite and positioned in the supine position. I explained the details of the procedure to the patient including the risks, benefits and alternatives. We had an informed discussion and the patient verbalized understanding and signed the consent form. All questions were answered appropriately.? A 'time out' procedure was performed. The patient was identified, the chart was reviewed, and all allergies were confirmed. Laterality was conducted and marked. The left knee was marked with a sterile marking pen, prepped times three, and sterilely draped.? Under fluoroscopic guidance, branches of the genicular nerves were localized.? First the superior medial genicular nerve was localized where the femoral shaft meets the medial epicondyle.? Skin was anesthetized with 1% lidocaine.? A 25-gauge 3.5 in needle was advanced in a coaxial manner in the AP view.? This was repeated on the superior lateral genicular nerve where the femoral shaft meets the lateral epicondyle and the inferior medial genicular nerve where the medial tibial shaft meets the tibial epicondyle. After negative aspiration for blood or other bodily fluids, 1cc of medication was injected at each of the three sites. The same procedure was then completed on the opposite side. The needles were removed and the sites of injection were bandaged. The patient was transported to the postoperative area in good condition. Anesthesia: Local Surgeon: Felisa Ruiz Pathology: none sent Condition: stable Disposition: no change
== END 2024-10-11 09:03 | disposition home or self-care (01) ==
LOC: SURGOUT 07:26
PROVIDERS: PCP Internal Medicine; Visit Provider Anesthesiology
DX: M17.0 Bilateral primary osteoarthritis of knee (principal); M25.561 Pain in right knee; M25.562 Pain in left knee
CPT/HCPCS: 64454; J0665; J1010

== ENCOUNTER 2024-10-21 09:41 | Outpatient (OUT) | payer MEDICARE, OTHER, SELFPAY ==
--- OUTSIDE RECORDS SUMMARY | 2024-05-03 07:00 | XMS_ITS ---
Author Organization [facility] Address [address] [place] [address] Care Team Providers Care Meter Mechanic Name Role Phone KYLEE DO ARANZA Primary Care Provider Sonny Luis Unavailable [phone] Nay Melgoza Unavailable [phone] REASON FOR VISIT BILATERAL KNEE PAIN Social History Tobacco Use: Social History Observation Description Date Details (start date - stop date) Never Smoker NA - NA AUDIT-C (Standard) Question Answer Notes Did you have a drink containing alcohol in the p ast year? No Points 0 Interpretation Negative Tobacco Control (Standard) Question Answer Notes Tobacco use: Nonsmoker Problems Problem Type SNOMED Code ICD Code Onset Dates Problem Status W/U Status Risk Notes Problem Osteoarthritis of knee (330142187) Bilateral primary osteoarthritis of knee (M17.0) Active confirmed Vital Signs Height 5'6 in 05/03/2024 Weight 220 lbs 05/03/2024 BMI 35.51 05/03/2024 Encounters Encounter Location Date Provider Diagnosis [facility] Office [address] [place] [address] [place] [address] 05/03/2024 Nay Davilaland Bilateral primary osteoarthritis of knee M17.0 Assessments Encounter Date Diagnosis (ICD Code) Assessment Notes Treatment Notes Treatment Clinical Notes Section Notes 05/03/2024 Bilateral primary osteoarthritis of knee (ICD-10 - M17.0) Bilateral knee osteoarthritis 05/03/2024 Other Today we discussed conservative treatments for the patient's bilateral knee osteoarthritis. She has not tried corticosteroid injections and is interested in this today. We did discuss risks and benefits and I did go ahead and inject her bilateral knees. We will see her back in 6 weeks for reevaluation. Bilateral knee osteoarthritis Plan Of Treatment Treatment Notes Assessment Notes Other Today we discussed c onservative treatments for the patient's bilateral knee osteoarthritis. She has not tried corticosteroid injections and is interested in this today. We did discuss risks and benefits and I did go ahead and inject her bilateral knees. We will see her back in 6 weeks for reevaluation. Next Appt Details Follow Up: 6 Weeks, Reason: Medications Administered Medication Instructions Date of Administration Dosage Notes lidocaine 05/03/2024 4 mL Depo-Medrol 05/03/2024 2 mL Progress Notes * RADHA REED LDOB:[birth year] (69 yo F)Acc No.[id number]:05/03/2024 Patient: RADHA GOLDSMITH Provider: CHARISSA Rm :1955 A ge:68 Y S ex:Female Date:05/03/2024 Address:[address] [place], [place] [id number] Pcp:ARANZA PICHARDO, Subjective: * Chief Complaints: * B ILATERAL KNEE PAIN * HPI: G eneral Follow Up Information: This is a 68-year-old female that presents to the office with approximately 5 months of bilateral knee pain. He states that this pain after she finished her landscaping she started having the pain. She denies any specific injury. Her left knee seems to be worse, but she also has left ankle problems. She sees Dr. Pichardo who had put her on Celebrex, but this does not seem to help with the pain. * Medical History: * Surgical History: * Social History: A DARON-C (Standard) D id you have a drink containing alcohol in the past year? N o,?Points 0 , I nterpretation N egative. T obacco Control (Standard) T obacco use: N onsmoker. * Medications: Objective: * Vitals: H t: 5'6 , Wt: 220 lbs, BMI:35.51. * Examination: G eneral examination: T he patient is in no distress, age-appropriate, alert oriented x 3. Range of motion. Tender to palpation medial joint lines. Elvia negative, Posterior drawer negative, Varus/Valgus stress tests negative. Palpable pulses distally and brisk capillary refill. There are no palpable cords or calf tenderness. The patient ambulates with a nonantalgic gait today. Normal muscle tone and bulk. Skin is intact throughout the lower extremities, no open wounds or lesions. No masses are appreciated. Intact sensation to light touch. . X -ray Imaging Studies: 4 view x-rays of the bilateral knees were reviewed from the [facility] from 12/23/2023 that were negative for fracture or dislocation. Medial joint space narrowing noted bilaterally with osteophyte formation. Assessment: * Assessment: 1. B ilateral primary osteoarthritis of knee - M17.0 (Primary) Bilateral knee osteoarthriti s. Plan: * Treatment: * Procedures: I ntra-articular corticosteroid injection was performed into the bilateral knees through an anteriolateral portal using a combination of Depo-Medrol 40 mg and local anesthetic. The patient tolerated the injection well. * Therapeutic Injections: LIDOCAINE : 4 mL (Route: Other/Miscellaneous) Depo-Medrol : 2 mL (Route: Other/Miscellaneous) * Procedure Codes: 2 0610 Injection major joint/bursa (bilateral), Modifiers: 50 J1010 Injection, Methylprednisolone Acetate 1 mg * Follow Up: 6 Weeks Forms: * Images: * Sign off status: Completed true * Provider: CHARISSA Rm Date: 07/04/2023 Generated for Leonardo conteh/Rayray/Ray on: 0 10/21/2024 09:44 AM EDT History and Physical Notes * HPI (History of Present Illness) Category Sub-Category Detail Notes Category Not es General Follow Up Information This is a 68-year-ol d female that presents to the office with approximately 5 months of bilateral knee pain. He states that this pain after she finished her landscaping she started having the pain. She denies any specific injury. Her left knee seems to be worse, but she also has left ankle problems. She sees Dr. Pichardo who had put her on Celebrex, but this does not seem to help with the pain. Examination Category Sub-Category Detail Notes Category Not es General examination The moo ent is in no distress, age-appropriate, alert oriented x 3. Range of motion. Tender to palpation medial joint lines. Elvia negative, Posterior drawer negative, Varus/Valgus stress tests negative. Palpable pulses distally and brisk capillary refill. There are no palpable cords or calf tenderness. The patient ambulates with a nonantalgic gait today. Normal muscle tone and bulk. Skin is intact throughout the lower extremities, no open wounds or lesions. No masses are appreciated. Intact sensation to light touch. X-ray Imaging Studies 4 view x-rays of the bilateral knees were reviewed from the [facility] from 12/23/2023 that were negative for fracture or dislocation. Medial joint space narrowing noted bilaterally with osteophyte formation.
--- OUTSIDE RECORDS SUMMARY | 2024-06-14 06:30 | XMS_ITS ---
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 Office [address] [facility] [place] [address] [place] [address] 2024 Nay Davilaland Bilateral primary osteoarthritis of knee M17.0 Assessments Encounter Date Diagnosis (ICD Code) Assessment Notes Treatment Notes Treatment Clinical Notes Section Notes 2024 Bilateral primary osteoarthritis of knee (ICD-10 - M17.0) 2024 Other Today we discus sed submitting for approval for viscosupplementation but patient is going on a long vacation at the end of June and would like to do another steroid injection for this as it worked so well for a few weeks. We will schedule her for July 12 for bilateral knee injections. She was given a list of our knee replacement surgeons and wants to consider referral to get established for possible knee replacement after she gets back from vacation. Plan Of Treatment Treatment Notes Assessment Notes Other Today we discussed s ubmitting for approval for viscosupplementation but patient is going on a long vacation at the end of June and would like to do another steroid injection for this as it worked so well for a few weeks. We will schedule her for July 12 for bilateral knee injections. She was given a list of our knee replacement surgeons and wants to consider referral to get established for possible knee replacement after she gets back from vacation. Next Appt Details Follow Up: 4 Weeks, Reason: Progress Notes * RADHA REED LDOB:[birth year] (69 yo F)Acc No.[id number]:2024 Patient: RADHA GOLDSMITH Provider: CHARISSA Rm :1955 A ge:69 Y S ex:Female Date:2024 Address:[address] [place] [address], [facility] Pcp:ARANZA PICHARDO DO Subjective: * Chief Complaints: * B /L KNEE OA * HPI: G eneral Follow Up Information: Patient returns the office today for recheck of her bilateral knee osteoarthritis. Patient did have bilateral corticosteroid injections 6 weeks ago at her last appointment. She states she had a lot of pain relief with the injections but they wore off after about 3 to 4 weeks. She still has more pain in her left knee on the medial aspect. * Medical History: * Surgical History: * Medications: Objective: * Vitals: * Examination: G eneral examination: O n exam patient is in no distress, age-appropriate, alert and oriented x 3. Patient ambulates with nonantalgic gait. On inspection skin is intact, no erythema, no joint effusion, no warmth to touch. Bilateral knee ROM 0-140. There is tenderness with palpation of the medial joint lines bilaterally. Anterior/posterior varus/valgus stress to the knee is negative for instability or pain. Grossly distally neurovascularly intact. . Assessment: * Assessment: 1. B ilateral primary osteoarthritis of knee - M17.0 (Primary) Plan: * Treatment: * Procedure Codes: * Preventive Medicine: MIPS Measures: C MS139 Fall Risk S creening: N o falls in the past year.? Screenings: F all Risk Screening F all Risk Assessment: N o falls in the past year. ANUP Screening: F ALLS: Screening for Future Fall Risk H ave you had two or more falls in the past year? N o, H ave you had any falls with injury in the past year? N o.? * Follow Up: 4 Weeks Forms: * Images: * Sign off status: Completed true * Provider: CHARISSA Rm Date: 0 2024 Generated for Leonardo conteh/Rayray/Amadouitting on: 0 10/21/2024 09:44 AM EDT History and Physical Notes * HPI (History of Present Illness) Category Sub-Category Detail Notes Category Not es General Follow Up Information Patient returns the office today for recheck of her bilateral knee osteoarthritis. Patient did have bilateral corticosteroid injections 6 weeks ago at her last appointment. She states she had a lot of pain relief with the injections but they wore off after about 3 to 4 weeks. She still has more pain in her left knee on the medial aspect. Examination Category Sub-Category Detail Notes Category Not es General examination On exam patient is in no distress, age-appropriate, alert and oriented x 3. Patient ambulates with nonantalgic gait. On inspection skin is intact, no erythema, no joint effusion, no warmth to touch. Bilateral knee ROM 0-140. There is tenderness with palpation of the medial joint lines bilaterally. Anterior/posterior varus/valgus stress to the knee is negative for instability or pain. Grossly distally neurovascularly intact.
--- OUTSIDE RECORDS SUMMARY | 2024-06-15 06:00 | XMS_ITS ---
Author Organization [facility] [place] [place] Address [address] [place] [address] Care Team Providers Care Account Development Executive Name Role Phone Peter Rush DO Primary Care Provider Javier Fontaine [phone] Allergies Allergen (clinical drug ingredient) Drug/Non Drug Allergy documented on EMR Reaction Allergy Type Onset Date Status Vicodin Unknown Drug Allergy Active oxycodone oxyCODONE Unknown Drug Allergy Active morphine Morphine Unknown Drug Allergy Active REASON FOR VISIT Left foot second opinion Medications Medication SIG (Take, Route, Fr equency, Duration) Notes Start Date End Date Status Celecoxib Active Estradiol Active Pantoprazole Sodium Active Social History Tobacco Use: Social History Observation Description Date Details (start date - stop date) Never Smoker NA - NA Tobacco Control (Standard) Question Answer Notes Tobacco use: Nonsmoker Problems Problem Type SNOMED Code ICD Code Onset Dates Problem Status W/U Status Risk Notes Problem [id number] Primary osteoarthrit is, left ankle and foot (M19.072) Active confirmed Vital Signs Heart Rate 97 /min 06/15/2024 Respiratory Rate 16 /min 06/15/2024 Height 66 in 06/15/2024 Weight 220 lbs 06/15/2024 BMI 35.51 kg/m2 06/15/2024 Oximetry 98 % 06/15/2024 Encounters Encounter Location Date Provider Diagnosis [facility] (PODIATRY) [address] [place] [address] [place] [address] 06/15/2024 Javier Luke Left foot pain M79.672 and Primary osteoarthritis, left ankle and foot M19.072 Assessments Encounter Date Diagnosis (ICD Code) Assessment Notes Treatment Notes Treatment Clinical Notes Section Notes 06/15/2024 Left foot pain (ICD-10 - M79.672) 06/15/2024 Primary osteoarthriti s, left ankle and foot (ICD-10 - M19.072) Patient is a pleasant 69-year-old female with multiple orthopedic issues including bilateral knee arthritis and bilateral foot arthritis. She underwent right midfoot fusion in [place] several years ago and is very happy with the outcome however she states that she was in a cast and nonweightbearing for 9 months. She had no recollection to why it took so long for her midfoot fusion to heal. She does not recall ever having a DEXA scan.She presents today for left foot pain which is very similar to her right foot pain prior to surgery x-rays do show degenerative changes but is difficult to see if this involves the intercuneiform joints and to what degree it affects the tarsometatarsal joints so I recommended a CT scan. She is strongly considering surgical intervention given her failure to respond to nonsurgical treatment which is included but not limited to Celebrex, shoe modification, activity modification, RICE therapy and her pain has only worsened. I also ordered a DEXA scan given her history of slow healing from a bone perspective. She will follow-up after the CT and DEXA scan are obtained Plan Of Treatment Treatment Notes Assessment Notes Primary osteoarthritis, left ankle and foot Patient is a pleasant 69-year-old female with multiple orthopedic issues including bilateral knee arthritis and bilateral foot arthritis. She underwent right midfoot fusion in [place] several years ago and is very happy with the outcome however she states that she was in a cast and nonweightbearing for 9 months. She had no recollection to why it took so long for her midfoot fusion to heal. She does not recall ever having a DEXA scan.She presents today for left foot pain which is very similar to her right foot pain prior to surgery x-rays do show degenerative changes but is difficult to see if this involves the intercuneiform joints and to what degree it affects the tarsometatarsal joints so I recommended a CT scan. She is strongly considering surgical intervention given her failure to respond to nonsurgical treatment which is included but not limited to Celebrex, shoe modification, activity modification, RICE therapy and her pain has only worsened. I also ordered a DEXA scan given her history of slow healing from a bone perspective. She will follow-up after the CT and DEXA scan are obtained Pending Test Test Name Order Date XR Foot LT (3 views) * 06/15/2024 DEXA Axial Skeleton (hips, pelvis, spine )* 06/15/2024 CT Foot LT w/o contrast * (Optional 3D R endering) 06/15/2024 Progress Notes * Bettina REEDDOB:1955 (69 yo F)Acc No.[id number]:06/15/2024 New Patient Patient: Bettina GOLDSMITH Provider: Lorenzo Luke DPM, MS :1955 A ge:69 Y S ex:Female Date:06/15/2024 Address:[address] [place] [address], [place] [address] Pcp:Peter Rush, DO Check In:09:41 AM ESTCheck O ut:10:47 AM EST Subjective: * Chief Complaints: * L eft foot second opinion * HPI: G eneral: Pt has complaints of left midfoot pain, 03/04 with WB, achy pain NWB. Pt reports history of right midfoot fusion at [facility] [address] Garsia and relays he advised she may need similar surgery to contralateral foot. 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 S he is seeking a second opinion closer to home for left foot surgery. She has osteoarthritis of her knees, takes Celebrex. She will ice/heat to left foot for some relief. * ROS: G eneral/Constitutional: Chills d enies. F ever d enies. W eight gain?denies. W eight loss d enies. S kin: Skin Ulcers d enies. S kin lesion(s) d enies. ? C ardiovascular: Difficulty breathing on exertion d enies. L eg cramps?denies. E edmundo d enies. C hest pain d enies. R espiratory: Difficulty breathing d enies. D yspnea d enies.?Cough d enies. G astrointestinal: Diarrhea d enies. N ausea d enies. V omiting?denies. M usculoskeletal: Bone/Joint Symptoms d enies. C prison Pain d enies.?Leg cramps d enies. N eurologic: Numbness d enies. T ingling d enies . G ait abnormality d enies. ? H ematology: Anemia D enies. E asy bruising d enies. ? A ll Other Systems: Review of Systems (ROS) S HPI for details,All others negative except those mentioned in HPI. * Active Problem List M79.672 Left foot pain Modified On:06/11/2024W/U Status:confirmed M19.072 Primary osteoarthrit is, left ankle and foot Modified On:06/15/2024W/U Status:confirmed * Medical History: * Surgical History: H ysterectomy 1996lithotripsy 2012lobectomy 2013lumbar surgery 2014right foot surgery [facility] 2016 * Hospitalization/Major Diagno stic Procedure: N o Hospitalization History. * Family History: F ather: diagnosed with Unspecified heart disease, Other malignant neoplasm of unspecified site. M other: diagnosed with Unspecified heart disease. anesthesia problems-extreme nausea. * Social History: T obacco Use: T obacco Control (Standard) T obacco use: N onsmoker * Medications: T akingCelecoxib Estradiol Pantoprazole Sodium Medication List reviewed and reconciled with the patientTaking Celecoxib Taking Estradiol Taking Pantoprazole Sodium Medication List reviewed and reconciled with the patient * Allergies: M orphineoxyCODONEVicodinno[Allergies Verified] Objective: * Vitals: W t:220lbs, Ht:66in, HR:97/min, RR:16/min, BMI:35.51Index, Pain scale:101-10, Oxygen sat %:98%, Ht-cm: 167.64 cm, Wt-k.79 kg. * Examination: P odiatry Examination: SKIN: s kin intact, n o sign of infection. MUSCULOSKELETAL: P ain on palpation left midfoot across Lisfranc's joint. Mild pain with stressing the midfoot but no instability. Arch height on the left is slightly higher than the right but the heel is in a neutral position bilaterally.. NEUROLOGICAL: l ight touch sensation intact, n egative tinel's sign. VASCULAR: P edal pulses palpable, C apillaryrefill is brisk to toe, mild dorsal left foot swelling. X -rays: x-rays were obtained & reviewed in my office. X-rays demonstrate degenerative changes across the tarsometatarsal joints seemingly across 1 2 and 3. No acute deformity and all cortices are intact. Assessment: * Assessment: 1. P rimary osteoarthritis, left ankle and foot - M19.072 (Primary) 2 . L eft foot pain - M79.672 Plan: * Treatment: 2. L eft foot pain I maging: XR Foot LT (3 views) * I maging: DEXA Axial Skeleton (hips, pelvis, spine)* I maging: CT Foot LT w/o contrast * (Optional 3D Rendering) * Procedure Codes: * * Sign off status: Completed Visit Status: C HK (Check Out) true * Provider: Lorenzo Luke DPM, MS Date: 0 06/15/2024 Generated for Leonardo conteh/Rayray/Amadouitting on: 0 10/21/2024 09:44 AM EDT History and Physical Notes * HPI (History of Present Illness) Category Sub-Category Detail Notes Category Not es General Pt has complain ts of left midfoot pain, 10/10 with WB, achy pain NWB. Pt reports history of right midfoot fusion at [facility] [address] Garsia and relays he advised she may need similar surgery to contralateral foot. 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 She is seeking a second opinion closer to home for left foot surgery. She has osteoarthritis of her knees, takes Celebrex. She will ice/heat to left foot for some relief. Examination Category Sub-Category Detail Notes Category Not es Podiatry Examination SKIN: skin intact, no sign of infection X-ray s: x-rays were obtained & reviewed in my office. X-rays demonstrate degenerative changes across the tarsometatarsal joints seemingly across 1 2 and 3. No acute deformity and all cortices are intact MUSCULOSKELETAL: Pain on palpation le ft midfoot across Lisfranc's joint. Mild pain with stressing the midfoot but no instability. Arch height on the left is slightly higher than the right but the heel is in a neutral position bilaterally. NEUROLOGICAL: light touch sensatio n intact, negative tinel's sign VASCULAR: Pedal pulses palpable, Capillary refill is brisk to toe, mild dorsal left foot swelling
--- OUTSIDE RECORDS SUMMARY | 2024-06-22 05:15 | XMS_ITS ---
Author Organization [facility] in [place] Address [address] [place] [address] Care Team Providers Care Crtt Name Role Phone Peter Rush DO Primary Care Provider Javier Fontaine [phone] Allergies Allergen (clinical drug ingredient) Drug/Non Drug Allergy documented on EMR Reaction Allergy Type Onset Date Status Vicodin Unknown Drug Allergy Active oxycodone oxyCODONE Unknown Drug Allergy Active morphine Morphine Unknown Drug Allergy Active Reason For Referral Reason Referral to Diagnosis 1 Primary osteoarthrit is, left ankle and foot (M19.072) Referral Organization [facility] (PODIATRY) Referring Provider First Name Javier Referring [...] Answer Notes Tobacco use: Nonsmoker Vital Signs Temperature 97.8 degrees Fahrenheit 06/22/19 25 Heart Rate 82 /min 06/22/2024 Height 66 in 06/22/2024 Oximetry 99 % 06/22/2024 Encounters Encounter Location Date Provider Diagnosis [facility] ([facility]) [address] [place] [address] [place] [address] 06/22/2024 Javier Luke Primary osteoarthritis, left ankle and foot M19.072 Assessments Encounter Date Diagnosis (ICD Code) Assessment Notes Treatment Notes Treatment Clinical Notes Section Notes 06/22/2024 Primary osteoarthriti s, left ankle and foot (ICD-10 - M19.072) Patient is a 69-year-old female who underwent right second and third tarsometatarsal joint and naviculocuneiform joint fusion in [place] years ago. She is having similar symptoms [...] tarsometatarsal joint and naviculocuneiform joint fusion in [place] years ago. She is having similar symptoms [...] Notes * Bettina REEDDOB:1955 (69 yo F)Acc No.[id number]:06/22/2024 Follow Up Patient: Bettina GOLDSMITH Provider: Lorenzo Luke DPM, MS :1955 A ge:69 Y S ex:Female Date:06/22/2024 Address:[address] [place] [address], [place] [address] Pcp:Peter Rush, DO Check In:09:09 AM ESTCheck [...] DPM, MS Date: 0 06/22/[address] [facility]Rayray/Amadouitting on: 0 10/21/2024 09:44 AM EDT [...]
--- OUTSIDE RECORDS SUMMARY | 2024-07-12 06:30 | XMS_ITS ---
Author Organization [facility] Address [address] [place] [address] Care Team Providers Care Iap Displays Analyst Name Role Phone ARANZA PICHARDO DO Primary Care Provider Sonny Luis Unavailable [phone] REASON FOR VISIT ALYSSIA KNEE INJ Encounters Encounter Location Date Provider Diagnosis [facility] [facility] [address] [facility] [place] [address] [place] [address] 07/12/2024 Sonny Wong Plan Of Treatment No Information Progress Notes * RAHDA REED LDOB:[birth year] (69 yo F)Acc No.[id number]:07/12/2024 Patient: RADHA GOLDSMITH Provider: Rika Wong MD :1955 A ge:69 Y S ex:Female Date:07/12/2024 Address:[address] [place], [place] [phone] Pcp:ARANZA PICHARDO DO Subjective: * Chief Complaints: * 1 . ALYSSIA KNEE INJ. * Medical History: Objective: * Vitals: Assessment: Plan: * Treatment: Forms: * Images: * Electronic signature of Jaun Wong MD on 10/21/2024 at 09:44 AM EDT Sign off status: Pending * Provider: Rika Wong MD Date: 07/12/2024 Generated for Leonardo conteh/Rayray/eTransmitting on: 0 10/21/2024 09:44 AM EDT
--- OUTSIDE RECORDS SUMMARY | 2024-10-21 09:44 | XMS_ITS | Encounter Summary ---
Author Organization [facility] Address [address] [place] [address] Care Team Providers Care Fruit Packer Face And Fill Name Role Phone Peter Rush DO Primary Care Provider [phone] Source Comments In the event this information is protected by the Federal Confidentiality of Alcohol and Drug AbusePatient Records regulations: The Federal rules restrict any use of the information to criminally investigate or prosecute any alcohol or drug abuse patient.[facility] Encounter Details Date Type Department Care Team (Late st Contact Info) Description 01/13/2023 Patient Msg Gastroenterology [id number] [place] [id number] Provider, [facility] appointment cancellation Social History Tobacco Use Types Packs/Day Years Used Date Smoking Tobacco: Never Smokeless Tobacco: Never Alcohol Use Standard Drinks/Week Comments Yes 0 (1 standard drink = 0.6 oz pur e alcohol) occ. Area Deprivation Index Answer Date Didier rded National Score (1-100), lower number is lower ri sk 65 09/25/2022 State Score (1-10), lower number is lower risk 4 09/25/2022 Data from: https://www.neighborhoodatlas.medicine.[facility].edu/. Last address used for calculation [address] 09/25/2022 Comments No Sex and Gender Information Value Date Recorded Sex Assigned at Female 04/11/2021 2:18 PM EST Legal Sex Female 8:46 AM EDT Gender Identity Female 04/11/2021 2:18 PM EST Sexual Orientation Not on file documented as of this encounter Functional Status * Are you deaf or do you have serious difficulty hearing? Answer Date of Assessment Author No 09/07/2014 9:[address] stephanie Samuels MA * Are you blind or do you have serious difficulty seeing, even when wearing glasses? Answer Date of Assessment Author No 09/07/2014 9:[address] stephanie Samuels MA * Do you have serious difficulty walking or climbing stairs? Answer Date of Assessment Author No 09/07/2014 9:[address] stephanie Samuels MA * Do you have difficulty dressing or bathing? Answer Date of Assessment Author No 09/07/2014 9:[address] stephanie Samuels MA * Because of a physical, mental, or emotional condition, do you have difficulty doing errands alone such as visiting a doctor's office or shopping? Answer Date of Assessment Author No 09/07/2014 9:[address] stephanie Samuels MA documented as of this encounter Mental Status * Because of a physical, mental, or emotional condition, do you have serious difficulty concentrating, remembering, or making decisions? Answer Entry Date Author No 09/07/2014 9:[address] stephanie Samuels MA documented in this encounter Plan of Treatment Not on file documented as of this encounter Visit Diagnoses Not on filedocumented in this encounter Care Teams Fruit Packer Face And Fill Relationship Specialty Start Date End Date Peter Rush DO PCP - General Internal Medicine 09/11/12 documented as of this encounter
--- OUTSIDE RECORDS SUMMARY | 2024-10-21 09:44 | XMS_ITS | Encounter Summary ---
Author Organization [facility] Address [address] [place] [address] Care Team Providers Care Pet Technologist Name Role Phone Victor Manuel Peter Mela CHAIREZ Primary Care Provider [phone] Source Comments In the event this information is protected by the Federal Confidentiality of Alcohol and Drug AbusePatient Records regulations: The Federal rules restrict any use of the information to criminally investigate or prosecute any alcohol or drug abuse patient.[facility] Encounter Details Date Type Department Care Team (Late st Contact Info) Description 2022 [place] [address] Provider, [facility] Medicare Coverage of Physical Exams Social History Tobacco Use Types Packs/Day Years Used Date Smoking Tobacco: Never Smokeless Tobacco: Never Alcohol Use Standard Drinks/Week Comments Yes 0 (1 standard drink = 0.6 oz pur e alcohol) occ. Area Deprivation Index Answer Date Didier rded National Score (1-100), lower number is lower ri sk Not on file 04/30/2020 State Score (1-10), lower number is lower risk N ot on file 04/30/2020 Data from: https://www.neighborhoodatlas.medicine.[facility].edu/. Last address used for calculation Not on file 04/30/2020 Comments No Sex and Gender Information Value [...] on filedocumented in this encounter Care Teams Pet Technologist Relationship Specialty Start Date End Date Peter Rush DO PCP - General Internal Medicine 09/11/12 documented as of this encounter
--- OUTSIDE RECORDS SUMMARY | 2024-10-21 09:44 | XMS_ITS | Encounter Summary ---
Author Organization [facility] Address [address] [place] [address] Care Team Providers Care Business Services Specialist Sales Name Role Phone Victor Manuel Peter Mela CHAIREZ Primary Care Provider [phone] Source Comments In the event this information is protected by the Federal Confidentiality of Alcohol and Drug AbusePatient Records regulations: The Federal rules restrict any use of the information to criminally investigate or prosecute any alcohol or drug abuse patient.[facility] Encounter Details Date Type Department Care Team (Late st Contact Info) Description 05/16/2015 Patient Msg [facility] [address] [phone] RE: Appointment Cancellation Request Social History Tobacco Use Types Packs/Day Years Used Date Smoking Tobacco: Never Smokeless Tobacco: Never Alcohol Use Standard Drinks/Week Comments Yes 0 (1 standard drink = 0.6 oz pur e alcohol) occ. Comments No Sex and Gender Information Value [...] Author No 09/07/2014 9:[address] stephanie Sameuls MA * Do you have difficulty dressing [...] on filedocumented in this encounter Care Teams Business Services Specialist Sales Relationship Specialty Start Date End Date Peter Rush DO PCP - General Internal Medicine 09/11/12 documented as of this encounter
--- OUTSIDE RECORDS SUMMARY | 2024-10-21 09:44 | XMS_ITS | Encounter Summary ---
Author Organization [facility] Address [address] [place] [address] Care Team Providers Care Mobile Patrol Officer Name Role Phone Peter Rush Primary Care Provider [phone] Source Comments In the event this information is protected by the Federal Confidentiality of Alcohol and Drug AbusePatient Records regulations: The Federal rules restrict any use of the information to criminally investigate or prosecute any alcohol or drug abuse patient.[facility] Encounter Details Date Type Department Care Team (Late st Contact Info) Description 01/22/2016 Get Medical Advice Urology [address] [place] [address] Jannet Galindo, APPAREL EMBROIDERY DIGITIZER.[facility] [address] [place], [place] [id number] RE: Non-Urgent Medical Question Social History Tobacco Use Types Packs/Day Years [...] on filedocumented in this encounter Care Teams Mobile Patrol Officer Relationship Specialty Start Date End Date Peter Rush DO PCP - General Internal Medicine 09/11/12 documented as of this encounter
--- OUTSIDE RECORDS SUMMARY | 2024-10-21 09:44 | XMS_ITS | Encounter Summary ---
Author Organization [facility] Address [address] [place] [id number] Care Team Providers Care Fabrication And Layout Craftsman Name Role Phone Peter Rush Primary Care Provider [phone] Source Comments In the event this information is protected by the Federal Confidentiality of Alcohol and Drug AbusePatient Records regulations: The Federal rules restrict any use of the information to criminally investigate or prosecute any alcohol or drug abuse patient.[facility] Encounter Details Date Type Department Care Team (Late st Contact Info) Description 02/15/2015 Get Medical Advice Neurology [address] [place], [place] [id number] Bettina Madrid MD [address] [place], [place] [id number] Test Result Question Social History Tobacco Use Types Packs/Day [...] on filedocumented in this encounter Care Teams Fabrication And Layout Craftsman Relationship Specialty Start Date End Date Peter Rush DO PCP - General Internal Medicine 09/11/12 documented as of this encounter
--- OUTSIDE RECORDS SUMMARY | 2024-10-21 09:44 | XMS_ITS | Patient Health Record ---
Author Organization [facility] Address [address] [place] [address] Care Team Providers Care Surgical First Assistant Name Role Phone ARANZA PICHARDO DO Primary Care Provider Jaun Luisen Unavailable [phone] Nay Melgoza Unavailable [phone] Reason For Referral No Information Social History Tobacco Use: Social History Observation [...] Problem Status W/U Status Risk Notes Problem Bilateral primar y osteoarthritis of knee (M17.0) Active confirmed Vital Signs Height 5'6 in 05/03/2024 Weight 220 lbs 05/03/2024 BMI 35.51 05/03/2024 Encounters Encounter Location Date Provider Diagnosis [facility] [address] [place] [id number] 05/03/2024 [facility] Bilateral primary osteoarthritis of knee M17.0 [facility] [address] [place] [address] [place] [address] 2024 [facility] Bilateral primary osteoarthritis of knee M17.0 Assessments Encounter Date Diagnosis (ICD Code) Assessment Notes Treatment Notes Treatment Clinical Notes Section Notes 05/03/2024 Bilateral primary osteoarthritis of knee (ICD-10 - M17.0) Bilateral knee osteoarthritis 2024 Bilateral primary osteoarthritis of knee (ICD-10 - M17.0) 05/03/2024 Other Today we discus sed conservative treatments for the patient's bilateral knee osteoarthritis. She has not tried corticosteroid injections and is interested in this today. We did discuss risks and benefits and I did go ahead and inject her bilateral knees. We will see her back in 6 weeks for reevaluation. Bilateral knee osteoarthritis 2024 Other Today we discus sed submitting [...] gets back from vacation. Plan Of Treatment No Information Insurance Providers Payer Name Payer Address Payer Phone Subscriber Number Group Number Insured Name Patient Relationship to Insured Coverage Start Date Coverage End [place] [address] [place] [address] [id number] RADHA REED Self - patient is the insured Medical [facility] [address] [place] [id number] RADHA REED Self - patient is the insured Medications Administered Medication Instructions Date of Administration Dosage Notes Depo-Medrol 05/03/2024 2 mL lidocaine 05/03/2024 4 mL
--- OUTSIDE RECORDS SUMMARY | 2024-10-21 09:44 | XMS_ITS | Encounter Summary ---
Author Organization [facility] Address [address] [place] [address] Care Team Providers Care Engine Repair Supervisor Name Role Phone Peter Rush DO Primary Care Provider [phone] Source Comments In the event this information is protected by the Federal Confidentiality of Alcohol and Drug AbusePatient Records regulations: The Federal rules restrict any use of the information to criminally investigate or prosecute any alcohol or drug abuse patient.[facility] Encounter Details Date Type Department Care Team (Late st Contact Info) Description 02/23/2015 Patient Msg Medical Records [address] [place] [id number] Provider, [facility] RE: Appointment Cancellation Request Social History Tobacco [...] on filedocumented in this encounter Care Teams Engine Repair Supervisor Relationship Specialty Start Date End Date Peter Rush DO PCP - General Internal Medicine 09/11/12 documented as of this encounter
--- OUTSIDE RECORDS SUMMARY | 2024-10-21 09:44 | XMS_ITS | Clinical Summary ---
Author Organization [facility] Address [address] [place] [address] Care Team Providers Care Bacon Slicer Name Role Phone Peter Rush DO Primary Care Provider [phone] Allergies Active Allergy Reactions Criticality Noted Date Comments Latex Rash Medium 09/25/2022 Sore rash if latex on skin for a period of time Morphine Other: See Comments 09/18/2012 nausea Medications Ascorbic Acid (VITAMIN C) 1,000 mg tabletIndications :Mid back pain,Lumbar degenerative disc disease,Numbness and tingling in right hand,Numbness of foot,Osteoarthrit is Take 1 tablet by mouth once daily. 0 3 Active omeprazole (PRILOSEC) 10 mg capsuleIndication s:Mid back pain,Lumbar degenerative disc disease,Numbness and tingling in right hand,Numbness of foot,Osteoarthrit is Take 1 capsule by mouth once daily. 0 3 Active cranberry conc-ascorbic acid 4,200-20 mg cap Take 2 tablets by mouth once daily. Active cholecalciferol (VITAMIN D3) 50 mcg (2,000 unit) tablet Take 2,000 Units by mouth once daily. Active MULTIVITAMIN/IRON /FOLIC ACID (CENTRUM WOMEN ORAL) Take by mouth once daily. 7 Active CYANOCOBALAMIN, VITAMIN B-12, (VITAMIN B-12 ORAL) Take by mouth once daily. 7 Active KRILL OIL ORAL Take 350 mg by mouth once daily. Active estradiol (ESTRACE) 0.01 % (0.1 mg/gram) vaginal creamIndications: Atrophic vaginitis Use 1 g vaginally two times a week. 42.5 g 2 Active biotin 5,000 mcg ODT Take by mouth. Activ e Bifidobacterium infantis (ALIGN ORAL) Take by mouth. Activ e MEDICATION, NON-DATABASE Collagen powder daily Active Active Problems Problem Noted Date Diagnosed Date GERD (gastroesophageal reflux disease) 7 Arthritis, midfoot 07/03/2016 Spinal stenosis, lumbar 11/11/2013 Radiculitis, lumbosacral 11/11/2013 Abdominal pain 07/15/2013 Hepatic hemangioma 07/15/2013 Kidney stone 04/21/2013 Meatal stenosis 04/19/2013 Recurrent UTI 04/19/2013 Hydronephrosis, bilateral 04/07/2013 Family History Medical History Relation Comments None Brother 2 None Father arrythmia Mother arrythmia Sister 2 Relation Status Comments Brother 1 Alive Brother 2 Father Alive Mother Alive Sister 1 Alive Sister 2 Social History Tobacco Use Types Packs/Day Years Used Date Smoking Tobacco: Never Smokeless Tobacco: Never Alcohol Use Standard Drinks/Week Comments Yes 0 (1 standard drink = 0.6 oz pur e alcohol) occ. Area Deprivation Index Answer Date Didier rded National Score (1-100), lower number is lower ri sk 65 09/25/2022 State Score (1-10), lower number is lower risk 4 09/25/2022 Data from: https://www.neighborhoodatlas.medicine.[facility].edu/. Last address used for calculation [address] 09/25/2022 Comments No Sex and Gender Information Value Date Recorded Sex Assigned at Female 04/11/2021 2:18 PM EST Legal Sex Female 8:46 AM EDT Gender Identity Female 04/11/2021 2:18 PM EST Sexual Orientation Not on file Last Filed Vital Signs Vital Sign Reading Time Taken Comments Blood Pressure 165/78 04/11/2021 2:53 PM EST Pulse 116 04/11/2021 2:53 PM EST Temperature 36.3 C (97.3 F) 07/19/2016 4:07 PM EST Respiratory Rate 16 07/19/2016 4:07 PM EST Oxygen Saturation 98% 07/19/2016 4:07 PM EST Inhaled Oxygen Concentration - - Weight 100.7 kg (222 lb) 09/25/2022 1:20 PM EDT Height 167.6 cm (5' 6 ) 09/25/2022 1:20 PM EDT Body Mass Index 35.83 09/25/2022 1:20 PM EDT Plan of Treatment Health Maintenance Due Date Last Done Comments Anxiety Screening 1975 Depression Screening 1975 Hepatitis C Screening 1975 DTaP,Tdap,Td Vaccine (1 - Tdap) [address] Colonography 2002 Cologuard (FIT-DNA) 2002 Fecal Occult Blood 2002 Lipid Screening 2002 Sigmoidoscopy 2002 Pneumococcal Vaccine: 50+ (1 of 1 - PCV) 2007 Shingrix Vaccine (1 of 2) 2007 Bone Density Screening 2022 Colonoscopy 06/09/2023 06/09/2013, 06/09/2013 Colorectal Cancer Screening 06/09/2023 Covid-19 Vaccine (2 - 2023-2 5 season) 2024 08/04/2020 Advance Directive Discussion 05/26/2024 Influenza Vaccine (Season Ended) 2025 04/09/2022, 03/14/2018, 02/23/2017 Diabetes Screening 09/26/2025 09/26/2022, 1 06/27/2014, 01/13/2015, Additional history exists RSV Vaccine (1 - 1-dose 75+ series) 2032 Medical Devices Implanted Type Area Automobile Wrecker Device Identifier Shelf Expiration Date Model / Serial / Lot Graft Enhance Demineralized Cortical Fiber Bone Allograft Dehydrate 2.5ml - [id number] Implanted:Qty: 1 on 07/19/2016 at [facility] Implant Right: Bone - Foot MTF 08/01/2018 [id number] / [id number] / Description:graft brought in to room at 0840. Opened sterily to field by Donovan Christensen RN to Abigail Hayes REEL SYSTEM OPERATOR at 1015. Also handled by Moe Ulrich MD and Abigail Carey MD. No preparation required. Mds-Pt-N-Kind Implant - Crushed Cancellous 15cc Implanted:Qty: 1 on 07/19/2016 at [facility] Implant Right: Bone - Foot MTF 01/10/2019 [id number] / [id number] / Description:JJF-NO-X-KIND IM PLANT - Crushed Cancellous 15cc. Brought into room at 0840. Handed sterily to field by Donovan Christensen RN to Abigail Hayes REEL SYSTEM OPERATOR at 1015. Also handled by Moe Ulrich MD, and Abigail Carey MD. No preparation required. Plate 17mm Bone 2 Hole Compression Lower Extremity - [id number] Implanted:Qty: 1 on 07/19/2016 at [facility] Plate Right: Bone - Foot [employer] [id number] / / Plate Uni-Cp Stainless Steel 25mm Bone 2 Hole Compression - [id number] Implanted:Qty: 1 on 07/19/2016 at [facility] Plate Right: Bone - Foot [employer] [id number] / / Plate Lcp Long T Stainless Steel 61mm Bone 2 Hole Variable Angle Fusion - [id number] Implanted:Qty: 1 on 07/19/2016 at [facility] Plate Right: Bone - Foot [employer] 5 / / Screw Lcp 2.7mm T8 Stainless Steel 16mm Bone Variable Angle Lock Self Tap - [id number] Implanted:Qty: 1 on 07/19/2016 at [facility] Screw Right: Bone - Foot [employer] [place] 6 / / Screw Lcp 2.7mm T8 Stainless Steel 18mm Bone Variable Angle Lock Self Tap - [id number] Implanted:Qty: 1 on 07/19/2016 at [facility] Screw Right: Bone - Foot [employer] [place] 8 / / Screw Lcp 2.7mm T8 Stainless Steel 18mm Bone Stardrive Self Tap Modular - [id number] Implanted:Qty: 1 on 07/19/2016 at [facility] Screw Right: Bone - Foot [employer] [place] 202.878 / / Screw Lcp 2.7mm T8 Stainless Steel 16mm Bone Stardrive Self Tap Modular - [id number] Implanted:Qty: 1 on 07/19/2016 at [facility] Screw Right: Bone - Foot [employer] [place] 202.876 / / Screw Uni-Cp 3.5mm Stainless Steel 16mm Bone Lock Replacement Washer - [id number] Implanted:Qty: 2 on 07/19/2016 at [facility] Screw Right: Bone - Foot [employer] [id number] / / Screw Lcp 2.7mm T8 Stainless Steel 22mm Bone Variable Angle Lock Self Tap - [id number] Implanted:Qty: 1 on 07/19/2016 at [facility] Screw Right: Bone - Foot [employer] [place] 02.211.02 2 / / Screw Uni-Cp 3.5mm Stainless Steel 20mm Bone Lock Replacement Washer - [id number] Implanted:Qty: 1 on 07/19/2016 at [facility] Screw Right: Bone - Foot [employer] [id number] / / Screw Uni-Cp 3.5mm Stainless Steel 28mm Bone Lock Sterile Foot - [id number] Implanted:Qty: 1 on 07/19/2016 at [facility] Screw Right: Bone - Foot [employer] [id number] / / Screw Lcp 4mm 5mm 1.35mm .5 Thread Small Hexagon Reverse Cut Flute - [id number] Implanted:Qty: 1 on 07/19/2016 at [facility] Screw Right: Bone - Foot [employer] [place] 207.718 / / Screw Lcp 2.7mm T8 Stainless Steel 30mm Bone Stardrive Self Tap Modular - [id number] Implanted:Qty: 1 on 07/19/2016 at [facility] Screw Right: Bone - Foot [employer] 202.890 / / Washer Surfix 3.5mm Stainless Steel Orthopedic Lock Midfoot - [id number] Implanted:Qty: 4 on 07/19/2016 at [facility] Washer Right: Bone - Foot [employer] [id number] / / Procedures Procedure Name Priority Date/Time Associated Diagnosis Comments COMPREHENSIVE METABOLIC PANEL Routine 09/26/2022 1:20 PM EDT Polyp of colon, unspecified part of colon, unspecified type Liver hemangioma COLONOSCOPY - DIAGNOSTIC 06/09/2013 9:13 AM EST from Last 3 Months or Most Recently Relevant to Health Maintenance Results * COMP METABOLIC PANEL (09/26/2022 1:20 PM EDT) Protein, Total 7.4 6.3 - 8.0 g/dL 09/26/2022 2:15 PM [facility] Albumin 4.6 3.9 - 4.9 g/dL 09/26/2022 2:15 PM [facility] Calcium, Total 9.7 8.5 - 10.2 mg/dL 09/26/2022 2:15 PM [facility] Bilirubin, Total 0.5 0.2 - 1.3 mg/dL 09/26/2022 2:15 PM [facility] Alkaline Phosphatase 89 34 - 123 U/L 09/26/2022 2:15 PM [facility] AST 21 13 - 35 U/L 09/26/2022 2:15 PM [facility] ALT 28 7 - 38 U/L 09/26/2022 2:15 PM [facility] Glucose 98 74 - 99 mg/dL 09/26/2022 2:15 PM [facility] Comment: The [place] Diabetes Association (ADA) provides guidance for cutoff [...] Standards of Medical Care in Diabetes 2016, [place] Diabetes Association. Diabetes Care. 2016.39(Suppl 1). BUN 17 7 - 21 mg/dL 09/26/2022 2:15 PM [facility] Creatinine 0.68 0.58 - 0.96 mg/dL 09/26/2022 2:15 PM [facility] Sodium 142 136 - 144 mmol/L 09/26/2022 2:15 PM [facility] Potassium 4.6 3.7 - 5.1 mmol/L 09/26/2022 2:15 PM [facility] Chloride 104 97 - 105 mmol/L 09/26/2022 2:15 PM [facility] CO2 29 22 - 30 mmol/L 09/26/2022 2:15 PM EDT [facility] Anion Gap 9 9 - 18 mmol/L 09/26/2022 2:15 PM EDT [facility] Estimated Glomerular Filtration Rate 97 >=60 mL/min/1.7 3m 09/26/2022 2:15 PM T [facility] Comment:Estimated Glomerular Filtration Rate (eGFR) is calculated using the 2020 CKD-EPI creatinine equation. This equation utilizes serum creatinine, sex, and age as parameters. The creatinine assay has traceable calibration to isotope dilution- mass spectrometry. Refer to KDIGO guidelines for clinical interpretation. In patients with unstable renal function, e.g. those with acute kidney injury, the eGFR may not accurately reflect actual GFR. Blood BLOOD SPECIMEN / Unknown Venipuncture / Unknown 09/26/2022 1:20 PM EDT 09/26/2022 1:21 PM EDT us Yolanda Gutierrez MD LABORATORY Final Re sult [facility] [address] [facility] [place] [address], * COLONOSCOPY - DIAGNOSTIC (06/09/2013 9:13 AM EST) Credit Card Specialist A31 Gastrointestinal Endoscopy Patient Name: Bettina Larios Procedure Date: 06/09/2013 9:13 AM Date of : 1955 Admit Type: Outpatient Age: 57 Room: A31 Procedure 10 ([id number]) Gender: Female Note Status: Finalized Attending MD: Javi Johnson MD Procedure Start: 9:40 AM Procedure End: 9:57 AM Procedure: Colonoscopy Indications: Change in bowel habits Providers: Javi Johnson MD Referring Physician: Medicines: Midazolam 1 mg IV, See the other procedure note for documentation of the administered medications Complications: No immediate complications. Estimated blood loss: None. Requesting Provider: Procedure: Pre-Anesthesia Assessment: - Prior to the procedure, a History and Physical was performed, and patient medications and allergies were reviewed. The patient is competent. The risks and benefits of the procedure and the sedation options and risks were discussed with the patient. All questions were answered and informed consent was obtained. Patient identification and proposed procedure were verified by the physician and the nurse in the procedure room. Mental Status Examination: alert and oriented. Airway Examination: normal oropharyngeal airway and neck mobility. Respiratory Examination: clear to auscultation. CV Examination: normal. Prophylactic Antibiotics: The patient does not require prophylactic antibiotics. Prior Anticoagulants: The patient has taken no previous anticoagulant or antiplatelet agents. ASA Grade Assessment: I - A normal, healthy patient. After reviewing the risks and benefits, the patient was deemed in satisfactory condition to undergo the procedure. The anesthesia plan was to use moderate sedation / analgesia (conscious sedation). Immediately prior to administration of medications, the patient was re-assessed for adequacy to receive sedatives. The heart rate, respiratory rate, oxygen saturations, blood pressure, adequacy of pulmonary ventilation, and response to care were monitored throughout the procedure. The physical status of the patient was re-assessed after the procedure. - Prior to the procedure, a History and Physical was performed, and patient medications and allergies were reviewed. The patient's tolerance of previous anesthesia was also reviewed. The risks and benefits of the procedure and the sedation options and risks were discussed with the patient. All questions were answered, and informed consent was obtained. Prior Anticoagulants: The patient has taken no previous anticoagulant or antiplatelet agents. ASA Grade Assessment: I - A normal, healthy patient. After reviewing the risks and benefits, the patient was deemed in satisfactory condition to undergo the procedure. After I obtained informed consent, the scope was passed under direct vision. Throughout the procedure, the patient's blood pressure, pulse, and oxygen saturations were monitored continuously. The Colonoscope was introduced through the anus and advanced to the terminal ileum, with identification of the appendiceal orifice and IC valve. The colonoscopy was performed with ease. The patient tolerated the procedure well. The quality of the bowel preparation was good. The appendiceal orifice, terminal ileum and rectum were photographed. Findings: The perianal and digital rectal examinations were normal. A benign appearing sessile polyp was found in the rectum. The polyp was 2 mm in size. The polyp was removed with a cold biopsy forceps. Resection and retrieval were complete. Estimated blood loss was minimal. The exam was otherwise without abnormality on direct and retroflexion views. The terminal ileum appeared normal. Impression: - One benign appearing 2 mm polyp in the rectum. Resected and retrieved. - The examination was otherwise normal on direct and retroflexion views. - The examined portion of the ileum was normal. Estimated Blood Loss: Estimated blood loss: none. Recommendation: - Await pathology results. - Repeat colonoscopy in 5-10 years for surveillance. - Patient has a contact number available for emergencies. The signs and symptoms of potential delayed complications were discussed with the patient. Return to normal activities tomorrow. Written discharge instructions were provided to the patient. - Regular diet. - Continue present medications. Attending Participation: I personally performed the entire procedure. Dr. Javi Johnson MD 06/09/2013 10:02 AM This report has been signed electronically by Javi Johnson MD Number of Addenda: 0 Note Initiated On: 06/09/2013 9:13 AM [facility] Anatomical Region Laterality Modality Other 06/09/2013 9:13 AM EST Cc Provider [facility] Final Result from Last 3 Months or Most Recently Relevant to Health Maintenance Insurance MEDICARE [facility] MEDICARE SUPPLEMENT Advance Directives Documents on File Type Date Recorded Patient Construction Rigger Expl anation Advance Directive(s) 10/13/2013 10:12 PM Care Teams Bacon Slicer Relationship Specialty Start Date End Date Peter Rush DO PCP - General Internal Medicine 09/11/12
--- OUTSIDE RECORDS SUMMARY | 2024-10-21 09:45 | XMS_ITS | Encounter Summary ---
Author Organization [facility] Address [address] [place] [address] Care Team Providers Care Sewing Pattern Layout Technician Name Role Phone Peter Rush DO Primary Care Provider [phone] Source Comments In the event this information is protected by the Federal Confidentiality of Alcohol and Drug AbusePatient Records regulations: The Federal rules restrict any use of the information to criminally investigate or prosecute any alcohol or drug abuse patient.[facility] Encounter Details Date Type Department Care Team (Late st Contact Info) Description 03/11/2014 Patient Msg Medical Records [address] [place] [id number] Provider, [facility] RE: Appointment Cancellation Request Social [...] hearing? Answer Date of Assessment Author No 02/04/2014 1:47 PM EDT Mikhail Cox Ma * Are you blind or do you have serious difficulty seeing, even when wearing glasses? Answer Date of Assessment Author No 02/04/2014 1:47 PM EDT Mikhail Cox Ma * Do you have serious difficulty walking or climbing stairs? Answer Date of Assessment Author Yes 02/04/2014 1:47 PM EDT Mikhail Cox Ma * Do you have difficulty dressing or bathing? Answer Date of Assessment Author No 02/04/2014 1:47 PM EDT Mikhail Cox Ma * Because of a physical, mental, or emotional condition, do you have difficulty doing errands alone such as visiting a doctor's office or shopping? Answer Date of Assessment Author No 02/04/2014 1:47 PM EDT Mikhail Cox Ma documented as of this encounter Mental Status * Because of a physical, mental, or emotional condition, do you have serious difficulty concentrating, remembering, or making decisions? Answer Entry Date Author No 02/04/2014 1:47 PM EDT Mikhail Cox Ma documented in this encounter Plan of Treatment Not on file documented as of this encounter Visit Diagnoses Not on filedocumented in this encounter Care Teams Sewing Pattern Layout Technician Relationship Specialty Start Date End Date Peter Rush DO PCP - General Internal Medicine 09/11/12 documented as of this encounter
--- OUTSIDE RECORDS SUMMARY | 2024-10-21 09:45 | XMS_ITS | Encounter Summary ---
Author Organization [facility] Address [address] [place] [address] Care Team Providers Care Hoop Coiler Name Role Phone Peter Rush Mela CHAIREZ Primary Care Provider Source Comments In the event this information is protected by the Federal Confidentiality of Alcohol and Drug AbusePatient Records regulations: The Federal rules restrict any use of the information to criminally investigate or prosecute any alcohol or drug abuse patient.[facility] Encounter Details Date Type Department Care Team (Late st Contact Info) Description 04/07/2021 Get Medical Advice Urology [address] [place], [place] [id number] Jannet Galindo, PAYROLL ADMINISTRATIVE ASSISTANT.JOB PRINTER [address] [place], [place] [id number] Non-Urgent Medical Question Social History Tobacco Use [...] N ot on file 04/30/2020 Data from: https://www.neighborhoodatlas.[facility]/. Last address used for calculation Not on [...] on filedocumented in this encounter Care Teams Hoop Coiler Relationship Specialty Start Date End Date Peter Rush DO PCP - General Internal Medicine 09/11/12 documented as of this encounter
--- OUTSIDE RECORDS SUMMARY | 2024-10-21 09:45 | XMS_ITS | Encounter Summary ---
Author Organization [facility] Address [address] [place] [address] Care Team Providers Care Senior Enterprise Architect Name Role Phone Peter Rush DO Primary Care Provider Source Comments In the event this information is protected by the Federal Confidentiality of Alcohol and Drug AbusePatient Records regulations: The Federal rules restrict any use of the information to criminally investigate or prosecute any alcohol or drug abuse patient.[facility] Encounter Details Date Type Department Care Team (Late st Contact Info) Description 11/10/2013 Patient Msg Medical Records [address] [place] [id number] Provider, Cc RE: Patient Registration Completed Social History Tobacco Use Types Packs/Day Years [...] hearing? Answer Date of Assessment Author No 11/04/2013 10:05 AM Johnna Stuart MA * Are you blind or do you have serious difficulty seeing, even when wearing glasses? Answer Date of Assessment Author No 11/04/2013 10:05 AM Johnna Stuart MA * Do you have serious difficulty walking or climbing stairs? Answer Date of Assessment Author No 11/04/2013 10:05 AM Johnna Stuart MA * Do you have difficulty dressing or bathing? Answer Date of Assessment Author No 11/04/2013 10:05 AM Johnna Stuart MA * Because of a physical, mental, or emotional condition, do you have difficulty doing errands alone such as visiting a doctor's office or shopping? Answer Date of Assessment Author No 11/04/2013 10:05 AM Johnna Stuart MA documented as of this encounter Mental Status * Because of a physical, mental, or emotional condition, do you have serious difficulty concentrating, remembering, or making decisions? Answer Entry Date Author No 11/04/2013 10:05 AM Johnna Stuart MA documented in this encounter Plan of Treatment Not on file documented as of this encounter Visit Diagnoses Not on filedocumented in this encounter Care Teams Senior Enterprise Architect Relationship Specialty Start Date End Date Peter Rush DO PCP - General Internal Medicine 09/11/12 documented as of this encounter
--- OUTSIDE RECORDS SUMMARY | 2024-10-21 09:45 | XMS_ITS | Encounter Summary ---
Author Organization [facility] Address [address] [place] [address] Care Team Providers Care Sample Hand Name Role Phone Peter Rush Primary Care Provider [phone] Source Comments In the event this information is protected by the Federal Confidentiality of Alcohol and Drug AbusePatient Records regulations: The Federal rules restrict any use of the information to criminally investigate or prosecute any alcohol or drug abuse patient.[facility] Encounter Details Date Type Department Care Team (Late st Contact Info) Description 02/19/2017 Get Medical Advice Orthopaedics [address] [phone] Rajesh Ulrich MD [address] [place] [address] RE: Non-Urgent Medical Question Social History Tobacco [...] on filedocumented in this encounter Care Teams Sample Hand Relationship Specialty Start Date End Date Peter Rush DO PCP - General Internal Medicine 09/11/12 documented as of this encounter
--- OUTSIDE RECORDS SUMMARY | 2024-10-21 09:45 | XMS_ITS | Encounter Summary ---
Author Organization [facility] Address [address] [place] [address] Care Team Providers Care Engine Hostler Name Role Phone Peter Rush DO Primary Care Provider Source Comments In the event this information is protected by the Federal Confidentiality of Alcohol and Drug AbusePatient Records regulations: The Federal rules restrict any use of the information to criminally investigate or prosecute any alcohol or drug abuse patient.[facility] Encounter Details Date Type Department Care Team (Late st Contact Info) Description 04/08/2013 Patient Msg Medical Records [address] [place] [phone] Provider, [facility] Procedure Social History Tobacco Use Types Packs/Day Years Used Date Smoking Tobacco: Never Alcohol Use Standard Drinks/Week Comments Not Asked 0 (1 standard drink = 0.6 oz pur e alcohol) Comments Unknown Sex and Gender Information Value Date Recorded Sex Assigned at Female 04/11/2021 2:18 PM EST Legal Sex Female 8:46 AM EDT Gender Identity Female 04/11/2021 2:18 PM EST Sexual Orientation Not on file documented as of this encounter Plan of Treatment Not on file documented as of this encounter Visit Diagnoses Not on filedocumented in this encounter Care Teams Engine Hostler Relationship Specialty Start Date End Date Peter Rush DO PCP - General Internal Medicine 09/11/12 documented as of this encounter
--- OUTSIDE RECORDS SUMMARY | 2024-10-21 09:45 | XMS_ITS | Encounter Summary ---
Author Organization [facility] Address [address] [place] [address] Care Team Providers Care Building Mechanic Name Role Phone Peter Rush Primary Care Provider [phone] Source Comments In the event this information is protected by the Federal Confidentiality of Alcohol and Drug AbusePatient Records regulations: The Federal rules restrict any use of the information to criminally investigate or prosecute any alcohol or drug abuse patient.[facility] Encounter Details Date Type Department Care Team (Late st Contact Info) Description 08/18/2019 Patient Msg Urology [address] [place] [address] Jannet Galindo, ACTIVITY THERAPY TEACHER.[facility] [address] [place], [place] [id number] Appointment Cancellation Request Social History Tobacco Use [...] PM EST Sexual Orientation Not on file COVID-19 Exposure Response Date Recorded In the last month, have you been in contact with someone who was confirmed or suspected to have Coronavirus / COVID-19? Unable to assess 08/19/2019 7:49 AM EDT documented as of this encounter Functional Status [...] on filedocumented in this encounter Care Teams Building Mechanic Relationship Specialty Start Date End Date Peter Rush DO PCP - General Internal Medicine 09/11/12 documented as of this encounter
--- OUTSIDE RECORDS SUMMARY | 2024-10-21 09:45 | XMS_ITS | Encounter Summary ---
Author Organization [facility] Address [address] [place] [address] Care Team Providers Care Back Up Worker Name Role Phone Peter Rush DO Primary Care Provider [phone] Source Comments In the event this information is protected by the Federal Confidentiality of Alcohol and Drug AbusePatient Records regulations: The Federal rules restrict any use of the information to criminally investigate or prosecute any alcohol or drug abuse patient.[facility] Encounter Details Date Type Department Care Team (Late st Contact Info) Description 07/29/2013 Patient Msg Medical Records [address] [place] [address] Provider, [facility] Procedure Social History Tobacco Use Types Packs/Day Years Used Date Smoking Tobacco: Never Alcohol Use Standard Drinks/Week Comments Not Asked 0 (1 standard drink = 0.6 oz pur e alcohol) Comments No Sex and Gender Information Value Date Recorded Sex Assigned at Female 04/11/2021 2:18 PM EST Legal Sex Female 8:46 AM EDT Gender Identity Female 04/11/2021 2:18 PM EST Sexual Orientation Not on file documented as of this encounter Plan of Treatment Not on file documented as of this encounter Visit Diagnoses Not on filedocumented in this encounter Care Teams Back Up Worker Relationship Specialty Start Date End Date Peter Rush DO PCP - General Internal Medicine 09/11/12 documented as of this encounter
--- OUTSIDE RECORDS SUMMARY | 2024-10-21 09:45 | XMS_ITS | Patient Health Record ---
Author Organization [facility] [place] Address [address] [place] [address] Care Team Providers Care Nascar Pit Crew Person Name Role Phone Peter Rush DO Primary Care Provider Ratna Fontaine [phone] Allergies Allergen (clinical drug ingredient) Drug/Non Drug Allergy documented on EMR Reaction Allergy Type Onset Date Status Vicodin Unknown Drug Allergy Active oxycodone oxyCODONE Unknown Drug Allergy Active morphine Morphine Unknown Drug Allergy Active Results Component Value Reference Range Notes XR foot LT min 3V (Not yet r eviewed by provider) Interpretation: Performing Lab: Notes/Report: Source Facility: [place] [address] XRay Report Signed Patient: BETTINA REED MR#: [id number] : 1955 Acct:[id number] Age/Sex: 69 / F ADM Date: 06/15/24 Loc: RAD Attending Dr: Ratna Luke D.P.M. Ordering Physician: Ratna Luke D.P.M. Date of Service: 06/15/24 Procedure(s): XR foot LT min 3V Accession Number(s): [id number] cc: Peter Rush D.O.; Ratna Luke D.P.M. [place] [id number] Patient Name: BETTINA REED MRN: [id number] date: 1955 Sex: F Assigned Patient Location: RAD Current Patient Location: RAD Accession/Order Number: [id number] Exam Date: 06/15/2024 09:20 Report Date: 06/15/2024 13:08 At the request of: RATNA LUKE Procedure: XR foot LT min 3V PROCEDURE: XR foot LT min 3V HISTORY: Left Foot Pain COMPARISON: None. FINDINGS: BONES:No fracture, acute abnormality, or significant arthropathy. SOFT TISSUES:No visible soft tissue swelling. EFFUSION:None visible. OTHER: Negative. XR/XR foot LT min 3V IMPRESSION: 1. No acute bone abnormality. Minimal degenerative changes. Electronically authenticated by: SONNY RANKIN Date: 06/15/2024 13:08 Dictated By: Sonny Rankin M.D. Signed By: 06/15/24 1311 DD/ 1308 TD/TT: Pillowcase Sewer: [place] [address] XRay Report Signed Patient: ZACK REED MR#: [id number] : 1955 Acct:[id number] Age/Sex: 69 / F ADM Date: 06/15/24 Loc: RAD Attending Dr: Ratna Luke D.P.M. Ordering Physician: Ratna Luke D.P.M. Date of Service: 06/15/24 Procedure(s): XR foot LT min 3V Accession Number(s): [id number] cc: Peter Rush; Ratna Luke D.P.M. [place] [address] Patient Name: BETTINA REED MRN: [id number] date: 1955 Sex: F Assigned Patient Location: [facility] Current Patient Location: [facility] Accession/Order Numb er: [id number] Exam Date: 06/15/2024 09:20 Report Date: 06/15/2024 13:08 At the request of: RATNA LUKE Procedure: XR foot LT min 3V PROCEDURE: XR foot LT min 3V HISTORY: Left Foot Pain COMPARISON: None. FINDINGS: BONES:No fracture, a cute abnormality, or significant arthropathy. SOFT TISSUES:No visi ble soft tissue swelling. EFFUSION:None visible. OTHER: Negative. X R/XR foot LT min 3V IMPRESSION: 1. No acute bone abn ormality. Minimal degenerative changes. Electronically authe nticated by: SONNY RANKIN Date: 06/15/2024 13:08 Dictated By: Sonny Rankin M.D. Signed By: 06/15/24 1311 DD/ 1308 TD/TT: Pillowcase Sewer: CT FOOT LT WO CON (Not yet r eviewed by provider) Interpretation: Performing Lab: Notes/Report: Source Facility: [place] [address] CT Scan Report Signed Patient: BETTINA REED MR#: [id number] : 1955 Acct:[id number] Age/Sex: 69 / F ADM Date: 06/21/24 Loc: CT Attending Dr: Ratna Luke D.P.M. Ordering Physician: Ratna Luke D.P.M. Date of Service: 06/21/24 Procedure(s): CT foot LT wo con Accession Number(s): [id number] cc: Peter Rush D.O. [place] [address] Patient Name: BETTINA REED MRN: [id number] date: 1955 Sex: F Assigned Patient Location: CT Current Patient Location: CT Accession/Order Number: [id number] Exam Date: 06/21/2024 08:45 Report Date: 06/21/2024 12:34 At the request of: RATNA LUKE Procedure: CT foot LT wo con CT scan of the left foot and ankle 06/21/2024. HISTORY: Left foot pain. Evaluate for arthritis. COMPARISON: Radiographs left foot 06/15/2024. TECHNIQUE: Multiple continues axial CT images of the left foot and ankle were obtained without contrast. Sagittal and coronal reformatted images were made. Dose reduction techniques were achieved by using automated exposure control and/or adjustment of mA and/or kV according to patient size and/or use of iterative reconstruction technique. FINDINGS: There is a large plantar calcaneal enthesophyte. There is also a small enthesophyte at the Achilles tendon insertion. There are moderate to severe degenerative changes at the articulation of the navicular with the medial cuneiform bone and there are mild degenerative changes at its articulation with the middle and lateral cuneiform bones. There are severe degenerative changes of the second and third tarsometatarsal joints with severe joint space narrowing, marginal osteophyte formation and adjacent subchondral cystic change. No fracture or dislocation is seen. No osseous erosions are identified. There is no significant soft tissue swelling. CT/CT foot LT wo con IMPRESSION: 1. 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 2. Moderate to severe degenerative change at the articulation of the navicular with the medial cuneiform bone and mild degenerative changes at its articulation with the middle and lateral cuneiform bones. 3. Calcaneal enthesopathy. Electronically authenticated by: EVETTE BRONSON Date: 06/21/2024 12:34 Dictated By: Evette Bronson M.D. Signed By: 06/21/24 1237 DD/ 1234 TD/TT: Pillowcase Sewer: [place] [address] CT Scan Report Signed Patient: ZACK REED MR#: [id number] : 1955 Acct:[id number] Age/Sex: 69 / F ADM Date: 06/21/24 Loc: CT Attending Dr: Ratna Luke D.P.M. Ordering Physician: Ratna Luke D.P.M. Date of Service: 06/21/24 Procedure(s): CT foot LT wo con Accession Number(s): [id number] cc: Peter Rush D.O. [place] [address] Patient Name: BETTINA REED MRN: [id number] date: 1955 Sex: F Assigned Patient Location: CT Current Patient Location: CT Accession/Order Numb er: [id number] Exam Date: 06/21/2024 08:45 Report Date: 06/21/2024 12:34 At the request of: RATNA LUKE Procedure: CT foot LT wo con CT scan of the left foot and ankle 06/21/2024. HISTORY: Left foot p ain. Evaluate for arthritis. COMPARISON: Radiogra phs left foot 06/15/2024. TECHNIQUE: Multiple continues axial CT images of the left foot and ankle were obtained without con trast. Sagittal and coronal reformatted images were made. Dose reduction techn iques were achieved by using automated exposure control and/or adjustment of mA and/or kV according to patient size and/or use of iterative reconstruc tion technique. FINDINGS: There is a large graham ntar calcaneal enthesophyte. There is also a small enthesophyte at the Achilles tendon insertion. There are moderate to severe degenerative changes at the articulation of the navicular with the medial cuneiform bone and t here are mild degenerative changes at its articulation with the middle and later al cuneiform bones. There are severe degenerative changes of the second and th ird tarsometatarsal joints with severe joint space narrowing, marginal osteophyte formation and adjacent subchondral cystic change. No fracture or dislocation is seen. No osseous erosions are identified. There is no signific ant soft tissue swelling. C T/CT foot LT wo con IMPRESSION: 1. Severe degenerati ve changes of the second and third tarsometatarsal joints. 2. Moderate to sever e degenerative change at the articulation of the navicular with the medial cune iform bone and mild degenerative changes at its articulation with th e middle and lateral cuneiform bones. 3. Calcaneal enthesopathy. Electronically authe nticated by: EVETTE BRONSON Date: 06/21/2024 12:34 Dictated By: Evette Bronson M.D. Signed By: 06/21/24 1237 DD/ 1234 TD/TT: Pillowcase Sewer: XR DEXA axial skeleton (Not yet reviewed by provider) Interpretation: Performing Lab: Notes/Report: Source Facility: [facility] [place] [address] [place] [address] XRay Report Signed Patient: BETTINA REED MR#: [id number] : 1955 Acct:[id number] Age/Sex: 69 / F ADM Date: 06/21/24 Loc: CT Attending Dr: Ratna Luke D.P.M. Ordering Physician: Ratna Luke D.P.M. Date of Service: 06/21/24 Procedure(s): XR DEXA axial skeleton Accession Number(s): [id number] cc: Peter Rush D.O.; Ratna Luke D.P.M. [address] [address] Patient Name: BETTINA REED MRN: [facility]:[id number] date: 1955 Sex: F Assigned Patient Location: CT Current Patient Location: CT Accession/Order Number: [id number] Exam Date: 06/21/2024 08:45 Report Date: 06/21/2024 10:13 At the request of: RATNA LUKE Procedure: XR DEXA axial skeleton EXAMINATION: XR DEXA axial skeleton HISTORY: Pain In Left Foot COMPARISON: No relevant comparison available. TECHNIQUE: Dual-energy X-ray absorptiometry (DXA) was performed. FINDINGS: HIP ANALYSIS: Lowest bone mineral density is within the right femoral neck, 0.926 g/cm2. T-score (standard deviation relative to young adult mean): -0.8 . XR/XR DEXA axial skeleton IMPRESSION: World Health Organization Classification: Normal - Low Fracture Risk FRAX: Cannot be calculated. Pharmacologic treatment recommendations * No uniform recommendation applies to all patients. Management plans must be individualized. * Consider initiating pharmacologic treatment in postmenopausal women and men >= 50 years of age who have the following: Primary fracture prevention: * T-score <= - 2.5 at the femoral neck, total hip, lumbar spine, 33% radius (some uncertainty with existing data) by DXA. * Low bone mass (osteopenia: T-score between - 1.0 and - 2.5) at the femoral neck or total hip by DXA with a 10-year hip fracture risk >= 3% or a 10-year major osteoporosis-related fracture risk >= 20% (i.e., clinical vertebral, hip, forearm, or proximal humerus) based on the [place]-adapted FRAXregistered model. Secondary fracture prevention: * Fracture of the hip or vertebra regardless of BMD [4, 5]. * Fracture of proximal humerus, pelvis, or distal forearm in persons with low bone mass (osteopenia: T-score between - 1.0 and - 2.5). The decision to treat should be individualized in persons with a fracture of the proximal humerus, pelvis, or distal forearm who do not have osteopenia or low BMD [12, 13]. Chris MS, Nesha SL, Chloé KL, Himanshu EM, Christopher KG, AJ, Arabella ES. The clinician's guide to prevention and treatment of osteoporosis. Osteoporos Int. 2021;3310):5831-2591. doi: 10.1007/s45700-811-95188-q. Epub 2021Sep 20. Erratum in: Osteoporos Int. 2021Dec 20;: PMID: 83945483; PMCID: [id number]. Electronically authenticated by: SONNY RANKIN Date: 06/21/2024 10:13 Dictated By: Sonny Rankin M.D. Signed By: 06/21/24 1015 DD/ 1013 TD/TT: Pillowcase Sewer: [place] [address] XRay Report Signed Patient: ZACK REED MR#: [id number] : 1955 Acct:[id number] Age/Sex: 69 / F ADM Date: 06/21/24 Loc: CT Attending Dr: Ratna Luke D.P.M. Ordering Physician: Ratna Luke D.P.M. Date of Service: 06/21/24 Procedure(s): XR DEX A axial skeleton Accession Number(s): [id number] cc: Peter Rush; Ratna Luke D.P.M. [place] [address] Patient Name: BETTINA REED MRN: [id number] date: 1955 Sex: F Assigned Patient Location: CT Current Patient Location: CT Accession/Order Numb er: [id number] Exam Date: 06/21/2024 08:45 Report Date: 06/21/2024 10:13 At the request of: RATNA LUKE Procedure: XR DEXA a xial skeleton EXAMINATION: XR DEXA axial skeleton HISTORY: Pain In Left Foot COMPARISON: No relev ant comparison available. TECHNIQUE: Dual-ener gy X-ray absorptiometry (DXA) was performed. FINDINGS: HIP ANALYSIS: Lowest bone mineral density is within the right femoral neck, 0.926 g/cm2. T-score (standard de viation relative to young adult mean): -0.8 . X R/XR DEXA axial skeleton IMPRESSION: World Health Organiz ation Classification: Normal - Low Fracture Risk FRAX: Cannot be calculated. Pharmacologic treatm ent recommendations * No uniform recomme ndation applies to all patients. Management plans must be individualized. * Consider initiatin g pharmacologic treatment in postmenopausal women and men >= 50 years of age w ho have the following: Primary fracture prevention: * T-score <= - 2.5 a t the femoral neck, total hip, lumbar spine, 33% radius (some uncertainty wi th existing data) by DXA. * Low bone mass (ost eopenia: T-score between - 1.0 and - 2.5) at the femoral neck or total hip by DXA with a 10-year hip fracture risk >= 3% or a 10-year major osteoporosis-r elated fracture risk >= 20% (i.e., clinical vertebral, hip, forearm, or proximal humerus) based on the US-adapted FRAXregistered model. Secondary fracture prevention: * Fracture of the hi p or vertebra regardless of BMD [4, 5]. * Fracture of proxim al humerus, pelvis, or distal forearm in persons with low bone mass (osteopeni a: T-score between - 1.0 and - 2.5). The decision to treat should be individual ized in persons with a fracture of the proximal humerus, pelvis, or distal fo rearm who do not have osteopenia or low BMD [12, 13]. Chris MS, Nesha SL, Chloé KL, Himanshu EM, Christopher KG, AJ, Arabella ES. The clinician's guid e to prevention and treatment of osteoporosis. Osteoporos Int. 2021;33(10) :4120-0359. doi: 10.1007/f38298-392-77041-b. Epub 2021Sep 20. Erratum in: Oste oporos Int. 2021Dec 20;: PMID: 94319144; PMCID: [id number]. Electronically authe nticated by: SONNY RANKIN Date: 06/21/2024 10:13 Dictated By: Sonny Rankin M.D. Signed By: 06/21/24 1015 DD/ 1013 TD/TT: Pillowcase Sewer: Reason For Referral Reason Referral to Diagnosis 1 Primary osteoarthrit is, left ankle and foot (M19.072) Referral Organization [facility] (PODIATRY) Referring Provider First Name Ratna Referring Provider Last Name [facility] Referring Provider Speciality Podiatry Referred Provider Specialty Pain Medicin e Referral Priority Routine Reason new referral Diagnosis 1 Left foot pain (M79. 672) Diagnosis 2 Primary osteoarthrit is, left ankle and foot (M19.072) Referral Organization [facility] (PODIATRY) Referring Provider First Name Ratna Referring Provider Last Name [facility] Referring Provider [facility] Podiatry Referred Provider Pain Management, [facility] Referred Provider Specialty Pain Medicin e Referral Priority Routine Medications Medication SIG (Take, Route, Fr equency, [...] Problem Status W/U Status Risk Notes Problem [id number] Primary osteoarthri tis, left ankle and foot (M19.072) Active confirmed Problem Pain in left foot (906111301114701) Left foot pain (M79.672) Active confirmed Vital Signs Heart Rate 82 /min 06/22/2024 Temperature 97.8 degrees Fahrenheit 06/22/2024 Respiratory Rate 16 /min 06/15/2024 Oximetry 99 % 06/22/2024 Height 66 in 06/22/2024 Weight 220 lbs 06/15/2024 BMI 35.51 kg/m2 06/15/2024 Encounters Encounter Location Date Provider Diagnosis [facility] (PODIATRY) [address] [place] [address] [place] [phone] 06/22/2024 Ratna Luke Primary osteoarthritis, left ankle and foot M19.072 [facility] (POD[facility]) [address] [place] [address] [place] [phone] 06/15/2024 Ratna Luke Left foot pain M79.672 and Primary [...] arthritis. She underwent right midfoot fusion in [place] several years ago and is very happy [...] the CT and DEXA scan are obtained 06/22/2024 Primary osteoarthriti s, left ankle and foot (ICD-10 - M19.072) Patient is a 69-year-old female who underwent right second and third tarsometatarsal joint and naviculocuneiform joint fusion in [place] years ago. She is having similar symptoms [...] concerns or issues arise. Plan Of Treatment Pending Test Test Name Order Date XR Foot LT (3 views) * 06/15/2024 DEXA Axial Skeleton (hips, pelvis, spine )* 06/15/2024 CT Foot LT w/o contrast * (Optional 3D R endering) 06/15/2024 CT FOOT LT WO CON 06/21/2024 XR foot LT min 3V 06/15/2024 XR DEXA axial skeleton 06/21/2024 Insurance Providers Payer Name Payer Address Payer Phone Subscriber Number Group Number Insured Name Patient Relationship to Insured Coverage Start Date Coverage End Date [place] [address] [place] [address] [id number] Betitna Reed Self - patient is the insured O [address] [place], [place] [id number] Bettina Reed Self - patient is the insured Medical (General) History Medical History History ICD Code acid reflux osteoarthritis varicose veins Surgical History Surgery Date(Month/Year) right foot surgery [facility] 2017 lumbar surgery 2015 lobectomy 2014 lithotripsy 2013 Hysterectomy 1997
--- OUTSIDE RECORDS SUMMARY | 2024-10-21 09:45 | XMS_ITS | Encounter Summary ---
Author Organization [facility] Address [address] [place] [address] Care Team Providers Care Commissary Superintendent Name Role Phone Peter Rush DO Primary Care Provider [phone] Source Comments In the event this information is protected by the Federal Confidentiality of Alcohol and Drug AbusePatient Records regulations: The Federal rules restrict any use of the information to criminally investigate or prosecute any alcohol or drug abuse patient.[facility] Encounter Details Date Type Department Care Team (Late st Contact Info) Description 03/11/2014 Patient Msg Medical Records [address] [place] [address] Provider, [facility] RE: Appointment Cancellation Request Social [...] on filedocumented in this encounter Care Teams Commissary Superintendent Relationship Specialty Start Date End Date Peter Rush DO PCP - General Internal Medicine 09/11/12 documented as of this encounter
--- OUTSIDE RECORDS SUMMARY | 2024-10-21 09:45 | XMS_ITS | Encounter Summary ---
Author Organization [facility] Address [address] [place] [address] Care Team Providers Care Tinware Lithograph Press Operator Name Role Phone Peter Rush Mela CHAIREZ Primary Care Provider [phone] Source Comments In the event this information is protected by the Federal Confidentiality of Alcohol and Drug AbusePatient Records regulations: The Federal rules restrict any use of the information to criminally investigate or prosecute any alcohol or drug abuse patient.[facility] Encounter Details Date Type Department Care Team (Late st Contact Info) Description 01/04/2014 Abstract Urology [address] [place] [address] Jannet Galindo, CEO AND [employer] FOUNDER.[facility] [address] [place] [address] Social History Tobacco Use Types Packs/Day Years [...] hearing? Answer Date of Assessment Author No 11/18/2013 3:39 PM Greg Stuart MA * Are you blind or do you have serious difficulty seeing, even when wearing glasses? Answer Date of Assessment Author No 11/18/2013 3:39 PM Greg Stuart MA * Do you have serious difficulty walking or climbing stairs? Answer Date of Assessment Author No 11/18/2013 3:39 PM EDGreg Pond MA * Do you have difficulty dressing or bathing? Answer Date of Assessment Author No 11/18/2013 3:39 PM Greg Stuart MA * Because of a physical, mental, or emotional condition, do you have difficulty doing errands alone such as visiting a doctor's office or shopping? Answer Date of Assessment Author No 11/18/2013 3:39 PM Greg Stuart MA documented as of this encounter Mental Status * Because of a physical, mental, or emotional condition, do you have serious difficulty concentrating, remembering, or making decisions? Answer Entry Date Author No 11/18/2013 3:39 PM Greg Stuart MA documented in this encounter Plan of Treatment Scheduled Orders Name Type Priority Associated Diagnoses Orde r Schedule XR ABDOMEN KUB SUPINE Radiology Routine Kidney stone Ordered: 09/06/2014 documented as of this encounter Visit Diagnoses Diagnosis Kidney stone- Primary Calculus of kidney documented in this encounter Care Teams Tinware Lithograph Press Operator Relationship Specialty Start Date End Date Peter Rush DO PCP - General Internal Medicine 09/11/12 documented as of this encounter
--- OUTSIDE RECORDS SUMMARY | 2024-10-21 09:47 | XMS_ITS | CCD ---
Author Organization [facility] Care Team Providers Care Job Lithographer Name Role Phone VICTOR MANUEL, DR COBIAN Consulting Unavailable BALL, DR COBIAN Primary Care Unavailable BALL, DR COBIAN Admitting Unavailable BALL, DR COBIAN Attending Unavailable BALL, DR COBIAN Consulting Unavailable BALL, DR COBIAN Primary Care Unavailable BALL, DR CBOIAN Admitting Unavailable BALL, DR COBIAN Attending Unavailable [...] Morphine; Translations: [MORPHINE] Drug Allergy 3 [facility] (7 sources) Morphine; Translations: [morphine] Drug Allergy 3 Other: See Comments, Patient reported problems (finding) [facility] (3 sources) Latex; Translations: [LATEX] Drug Allergy 3 Rash [facility] (1 source) patient allergy list reviewed by nurse or physicia Propensity to adverse reactions 8 Comment:Done EverZero Other Medications Current Medications Medication Drug Class(es) [...] tw o times a week. estrogens, conjugated (nursing home) 0.625 mg/ml vaginal cream (3 sources) Estrogen [...] Date: 03/18/24 Status: Ordered polyethylene glycol 3350 683788 mg / potassium chloride 2970 mg / sodium bicarbonate 6740 mg / sodium chloride 5860 mg / sodium sulfate 03696 mg powder for oral solution (1 source) [...] choosing us for your care. Ike Kaur [facility] General Surgery Office/Clini c Noteon 03-24-2024 [...] SARS-CoV-2 (COVID-19) Ad26 vaccine 08/04/2020 Recorded Normal [facility] Comment on above: Result Comment: Elec queally Signed By: ABDULAZIZ WILSON, Cristian Doshi\Date and Time Signed: 03/24/24 16:23 EDT Reminderson 03-04-2024 Reminders Reminders From: Patti Douglas LPN To: GSN - Clinical; Sent: 03/04/2024 14:13:04 EDT Show up: 02/01/2034 07:00:00 EDT Subject: colonoscopy recall Due Date/Time: 03/03/2034 07:00:00 EDT Reminder/Recall Patient due for screening colonoscopy 03/03/2034. Normal [facility] CBC W Auto Differential pane l (Bld)on 09-26-2022 Basophils (Bld) [#/Vol] 0.04 10*3/uL Normal <0.11 [facility] Comment on above: Order Comment: Speci men Type: BLOOD SPECIMEN Ordering Facility: [facility] Address: [address] [address] Performed By: #### 5 7021-8 #### [facility] CLIA [id number] [address] [facility] [place] Basophils/100 WBC (Bld) 0.7 % Normal [facility] Comment on above: Order Comment: Speci men Type: BLOOD SPECIMEN Ordering Facility: [facility] Address: [address] [address] Performed By: #### 5 7021-8 #### [facility] CLIA [id number] [address] [place] [address] [place] Differential cell count method Nom (Bld) Auto Normal [facility] Comment on above: Order Comment: Speci men Type: BLOOD SPECIMEN Ordering Facility: [facility] Address: [address] [address] Performed By: #### 5 7021-8 #### [facility] CLIA [id number] [address] [place] [address] [place] Eosinophils (Bld) [#/Vol] 0.04 10*3/uL Normal <0.46 [facility] Comment on above: Order Comment: Speci men Type: BLOOD SPECIMEN Ordering Facility: [facility] Address: [address] [address] Performed By: #### 5 7021-8 #### [facility] CLIA [id number] [address] [place] [address] [place] Eosinophils/100 WBC (Bld) 0.7 % Normal [facility] Comment on above: Order Comment: Speci men Type: BLOOD SPECIMEN Ordering Facility: [facility] Address: [address] [address] Performed By: #### 5 7021-8 #### [facility] [place] [id number] [address] [place] [address] [place] Erythrocyte distribution width (RBC) [Ratio] 12.2 % Normal 11.5-15.0 [facility] Comment on above: Order Comment: Speci men Type: BLOOD SPECIMEN Ordering Facility: [facility] Address: [address] [address] Performed By: #### 5 7021-8 #### [facility] IA [id number] [address] [place] [address] [place] Hematocrit (Bld) [Volume fraction] 43.6 % Normal 36.0-46.0 [facility] Comment on above: Order Comment: Speci men Type: BLOOD SPECIMEN Ordering Facility: [facility] Address: [address] [address] Performed By: #### 5 7021-8 #### [facility] CLIA [id number] [address] [place] [address] [place] Hemoglobin (Bld) [Mass/Vol] 14.4 g/dL Normal 11.5-15.5 [facility] Comment on above: Order Comment: Speci men Type: BLOOD SPECIMEN Ordering Facility: [facility] Address: [address] [address] Performed By: #### 5 7021-8 #### [facility] IA [id number] [address] [place] [address] [place] Immature granulocytes (Bld) [#/Vol] 10*3/uL Normal <0.10 [facility] Comment on above: Order Comment: Speci men Type: BLOOD SPECIMEN Ordering Facility: [facility] Address: [address] [address] Performed By: #### 5 7021-8 #### [facility] IA [id number] [address] [place] [address] [place] Immature granulocytes/100 WBC (Bld) 0.3 % Normal [facility] Comment on above: Order Comment: Speci men Type: BLOOD SPECIMEN Ordering Facility: [facility] Address: [address] [address] Performed By: #### 5 7021-8 #### [facility] IA [id number] [address] [place] [address] [place] Lymphocytes (Bld) [#/Vol] 1.48 10*3/uL Normal 1.00-4.00 [facility] Comment on above: Order Comment: Speci men Type: BLOOD SPECIMEN Ordering Facility: [facility] Address: [address] [address] Performed By: #### 5 7021-8 #### [facility] IA [id number] [address] [place] [address] [place] Lymphocytes/100 WBC (Bld) 25.8 % Normal [facility] Comment on above: Order Comment: Speci men Type: BLOOD SPECIMEN Ordering Facility: [facility] Address: [address] [address] Performed By: #### 5 7021-8 #### [facility] IA [id number] [address] [place] [address] [place] MCH (RBC) [Entitic mass] 30.5 pg Normal 26.0-34.0 [facility] Comment on above: Order Comment: Speci men Type: BLOOD SPECIMEN Ordering Facility: [facility] Address: [address] [address] Performed By: #### 5 7021-8 #### [facility] IA [id number] [address] [place] [address] [place] MCHC (RBC) [Mass/Vol] 33.0 g/dL Normal 30.5-36.0 [facility] Comment on above: Order Comment: Speci men Type: BLOOD SPECIMEN Ordering Facility: [facility] Address: [address] [address] Performed By: #### 5 7021-8 #### [facility] IA [id number] [address] [place] [address] [place] MCV (RBC) [Entitic vol] 92.4 fL Normal 80.0-100.0 [facility] Comment on above: Order Comment: Speci men Type: BLOOD SPECIMEN Ordering Facility: [facility] Address: [address] [address] Performed By: #### 5 7021-8 #### [facility] IA [id number] [address] [place] [address] [place] Monocytes (Bld) [#/Vol] 0.55 10*3/uL Normal <0.87 [facility] Comment on above: Order Comment: Speci men Type: BLOOD SPECIMEN Ordering Facility: [facility] Address: [address] [address] Performed By: #### 5 7021-8 #### [facility] IA [id number] [address] [place] [address] [place] Monocytes/100 WBC (Bld) 9.6 % Normal [facility] Comment on above: Order Comment: Speci men Type: BLOOD SPECIMEN Ordering Facility: [facility] Address: [address] [address] Performed By: #### 5 7021-8 #### [facility] IA [id number] [place] [address] [place] Neutrophils (Bld) [#/Vol] 3.61 10*3/uL Normal 1.45-7.50 [facility] Comment on above: Order Comment: Speci men Type: BLOOD SPECIMEN Ordering Facility: [facility] Address: [address] [address] Performed By: #### 5 7021-8 #### [facility] CLIA [id number] [address] [place] [address] [place] Neutrophils/100 WBC (Bld) 62.9 % Normal [facility] Comment on above: Order Comment: Speci men Type: BLOOD SPECIMEN Ordering Facility: [facility] Address: [address] [address] Performed By: #### 5 7021-8 #### [facility] CLIA [id number] [address] [place] [address] [place] Nucleated RBC (Bld) [#/Vol] 10*3/uL Normal <0.01 [facility] Comment on above: Order Comment: Speci men Type: BLOOD SPECIMEN Ordering Facility: [facility] Address: [address] [address] Performed By: #### 5 7021-8 #### [facility] CLIA [id number] [address] [place] [address] [place] Nucleated RBC/100 WBC (Bld) [Ratio] 0.0 /100 WBC Normal [facility] Comment on above: Order Comment: Speci men Type: BLOOD SPECIMEN Ordering Facility: [facility] Address: [address] [address] Performed By: #### 5 7021-8 #### [facility] CLIA [id number] [address] [place] [address] [place] Platelet mean volume (Bld) [Entitic vol] 9.2 fL Normal 9.0-12.7 [facility] Comment on above: Order Comment: Speci men Type: BLOOD SPECIMEN Ordering Facility: [facility] Address: [address] [address] Performed By: #### 5 7021-8 #### [facility] CLIA [id number] [address] [place] [address] [place] Platelets (Bld) [#/Vol] 267 10*3/uL Normal 150-400 [facility] Comment on above: Order Comment: Speci men Type: BLOOD SPECIMEN Ordering Facility: [facility] Address: [address] [address] Performed By: #### 5 7021-8 #### [facility] CLIA [id number] [address] [place] [address] [place] RBC (Bld) [#/Vol] 4.72 10*6/uL Normal 3.90-5.20 [facility] Comment on above: Order Comment: Speci men Type: BLOOD SPECIMEN Ordering Facility: [facility] Address: [address] [place] [address] Performed By: #### 5 7021-8 #### [facility] IA [id number] [address] [place] WBC (Bld) [#/Vol] 5.74 10*3/uL Normal 3.70-11.00 [facility] Comment on above: Order Comment: Speci men Type: BLOOD SPECIMEN Ordering Facility: [facility] Address: [address] [place] [address] Performed By: #### 5 7021-8 #### [facility] IA [id number] [address] [place] Comprehensive metabolic 2000 panelon 09-26-2022 Albumin [Mass/Vol] 4.6 g/dL Normal 3.9-4.9 [facility] Comment on above: Order Comment: Speci men Type: BLOOD SPECIMEN Ordering Facility: [facility] Address: [address] [place] [address] Performed By: #### 2 4323-8 #### [facility] CLIA [id number] [address] [place] [address] [place] ALP [Catalytic activity/Vol] 89 U/L Normal 34-123 [facility] Comment on above: Order Comment: Speci men Type: BLOOD SPECIMEN Ordering Facility: [facility] Address: [address] [address] Performed By: #### 2 4323-8 #### [facility] CLIA [id number] [address] [place] [address] [place] ALT [Catalytic activity/Vol] 28 U/L Normal 7-38 [facility] Comment on above: Order Comment: Speci men Type: BLOOD SPECIMEN Ordering Facility: [facility] Address: [address] [address] Performed By: #### 2 4323-8 #### [facility] CLIA [id number] [address] [place] [address] [place] Anion gap [Moles/Vol] 9 mmol/L Normal 9-18 [facility] Comment on above: Order Comment: Speci men Type: BLOOD SPECIMEN Ordering Facility: [facility] Address: [address] [address] Performed By: #### 2 4323-8 #### [facility] CLIA [id number] [address] [place] [address] [place] AST [Catalytic activity/Vol] 21 U/L Normal 13-35 [facility] Comment on above: Order Comment: Speci men Type: BLOOD SPECIMEN Ordering Facility: [facility] Address: [address] [address] Performed By: #### 2 4323-8 #### [facility] CLIA [id number] [address] [place] [address] [place] Bilirubin [Mass/Vol] 0.5 mg/dL Normal 0.2-1.3 [facility] Comment on above: Order Comment: Speci men Type: BLOOD SPECIMEN Ordering Facility: [facility] Address: [address] [address] Performed By: #### 2 4323-8 #### [facility] CLIA [id number] [address] [place] [address] [place] Calcium [Mass/Vol] 9.7 mg/dL Normal 8.5-10.2 [facility] Comment on above: Order Comment: Speci men Type: BLOOD SPECIMEN Ordering Facility: [facility] Address: [address] [place] [address] Performed By: #### 2 4323-8 #### [facility] CLIA [id number] [address] [place] [address] [place] Chloride [Moles/Vol] 104 mmol/L Normal 97-105 [facility] Comment on above: Order Comment: Speci men Type: BLOOD SPECIMEN Ordering Facility: [facility] Address: [address] [address] Performed By: #### 2 4323-8 #### [facility] CLIA [id number] [address] [place] [address] [place] CO2 [Moles/Vol] 29 mmol/L Normal 22-30 [facility] Comment on above: Order Comment: Speci men Type: BLOOD SPECIMEN Ordering Facility: [facility] Address: [address] [place] [address] Performed By: #### 2 4323-8 #### [facility] CLIA [id number] [address] [place] [address] [place] Creatinine [Mass/Vol] 0.68 mg/dL Normal 0.58-0.96 [facility] Comment on above: Order Comment: Speci men Type: BLOOD SPECIMEN Ordering Facility: [facility] Address: [address] [place] [address] Performed By: #### 2 4323-8 #### [facility] CLIA [id number] [address] [place] [address] [place] ESTIMATED GLOMERULAR FILTRATION RATE 97 mL/min/1.73m??? Normal >=60 [facility] Comment on above: Order Comment: Speci men Type: BLOOD SPECIMEN Ordering Facility: [facility] Address: [address] [place] [address] Result Comment: Barbara mated Glomerular Filtration Rate [...] GFR. Performed By: #### 2 4323-8 #### [facility] CLIA [id number] [address] [place] [address] [place] Glucose [Mass/Vol] 98 mg/dL Normal 74-99 [facility] Comment on above: Order Comment: Vineet rinaldi Type: BLOOD SPECIMEN Ordering Facility: [facility] Address: [address] [address] Result Comment: The [place] [employer] Association (ADA) provides guidance for cutoff [...] Standards of Medical Care in Diabetes 2016, [place] [employer]. Diabetes Care. 2016.39(Suppl 1). Performed By: #### 2 4323-8 #### [facility] CLIA [id number] [address] [place] [address] [place] Potassium [Moles/Vol] 4.6 mmol/L Normal 3.7-5.1 [facility] Comment on above: Order Comment: Vineet rinaldi Type: BLOOD SPECIMEN Ordering Facility: [facility] Address: [address] Performed By: #### 2 4323-8 #### [facility] CLIA [id number] [address] [place] [address] [place] Protein [Mass/Vol] 7.4 g/dL Normal 6.3-8.0 [facility] Comment on above: Order Comment: Vineet rinaldi Type: BLOOD SPECIMEN Ordering Facility: [facility] Address: [address] Performed By: #### 2 4323-8 #### [facility] CLIA [id number] [address] [address] [id number] [place] Sodium [Moles/Vol] 142 mmol/L Normal 136-144 [facility] Comment on above: Order Comment: Speci men Type: BLOOD SPECIMEN Ordering Facility: [facility] Address: [address] [address] Performed By: #### 2 4323-8 #### [facility] CLIA [id number] [address] [place] [address] [place] Urea nitrogen [Mass/Vol] 17 mg/dL Normal 7-21 [facility] Comment on above: Order Comment: Speci men Type: BLOOD SPECIMEN Ordering Facility: [facility] Address: [address] [address] Performed By: #### 2 4323-8 #### [facility] CLIA [id number] [address] [place] [address] [place] No Panel Informationon 09-26 [facility] US ABD RIGHT UPPER QUADRANTo n [...] and could represent the previously described hemangiomas. Vp Cardiovascular: DARRELL Transcribe Date/Time: Oct 03 2022 6:03A Dictated by : NAS DENSON MD This examination was interpreted and the report reviewed and electronically signed by: NAS DENSON MD on Oct 03 2022 6:08AM EST [id number] [facility] US ABD SPLEEN -NBon 09-27-19 US ABD SPLEEN -NB * * *Final Report* * * DATE OF EXAM: Sep 26 2022 1:18PM [facility] 1232 - US ABD SPLEEN -NB / [...] and could represent the previously described hemangiomas. Vp Cardiovascular: DARRELL Transcribe Date/Time: Oct 03 2022 6:03A Dictated by : NAS DENSON MD This examination was interpreted and the report reviewed and electronically signed by: NAS DENSON MD on Oct 03 2022 6:08AM EST [id number] [facility] CNOVon 09-25-2022 CNOV Office Visit (GASTAV ) BETTINA REED ([id number]) 1955 F Date Time Provider Department 09/25/22 1:30 PM YOLANDA STAFFORD During your visit today, we recorded the following information about you: Weight Height 100.7 kg 1.676 m Yolanda Ta MD 09/25/2022 2:21 PM Signed Hepatology [facility] HPI consult [...] If you do not have a responsible coach tour driver (family member or friend) with you [...] Imodium, Ka (more content not included)... Normal [facility] HISTORY PHYSICALon HISTORY PHYSICAL HNO ID: [id number] Author: Yolanda Gutierrez MD Service: ? Author [...] Yolanda Walters MD cc dr Rush Normal [facility] CULTURE URINEon 01-11-2022 CULTURE URINE Culture Observations : MODERATE GROWTH OF MIXED GENITAL JESUS. NO POTENTIAL PATHOGENS SEEN. Normal [facility] Comment on above: Performed By: #### U RCX #### [facility] [address] [place], [place] [address] Dr. Na Gonzales UA RANDOM W/MICROSCOPICon BACTERIA NONE SEEN Normal NONE SEEN [facility] Comment on above: Performed By: #### U AMIC #### [facility] [address] [place], [place] [address] Dr. Na Gonzales Bilirubin Ql (U) Negative Normal NEGATIVE [facility] Comment on above: Performed By: #### U AMIC #### [facility] [address] [address] [address] Na Gonzales CAST NONE SEEN Normal NONE SEEN [facility] Comment on above: Performed By: #### U AMIC #### [facility] [address] [address] [address] Na Gonzales Clarity (U) CLEAR Normal CLEAR [facility] Comment on above: Performed By: #### U AMIC #### [facility] [address] [address] [address] Na Gonzales Color (U) LT. YELLOW Normal YELLOW [facility] Comment on above: Performed By: #### U AMIC #### [facility] [address] [address] [address] Na Gonzales Crystals LM Nom (Urine sed) NONE SEEN Normal NONE SEEN [facility] Comment on above: Performed By: #### U AMIC #### [facility] [address] [place] [address] Dr. Na Gonzales Epithelial cells LM Ql (Urine sed) NONE SEEN Normal NONE SEEN /RARE [facility] Comment on above: Performed By: #### U AMIC #### [facility] [address] [address] [address] Na Gonzales Glucose Ql (U) Negative Normal NEGATIVE [facility] Comment on above: Performed By: #### U AMIC #### [facility] [address] [place] [address] Dr. Na Gonzales Hemoglobin Ql (U) Negative Normal NEGATIVE [facility] Comment on above: Performed By: #### U AMIC #### [facility] [address] [place] [address] Dr. Na Gonzales Ketones Ql (U) Negative Normal NEGATIVE [facility] Comment on above: Performed By: #### U AMIC #### [facility] [address] [address] [address] Na Gonzales LEUKOCYTES SMALL Abnormal NEGATIVE [facility] Comment on above: Performed By: #### U AMIC #### [facility] [address] [place] [address] Dr. Na Gonzales MUCOUS NONE SEEN Normal NONE SEEN [facility] Comment on above: Performed By: #### U AMIC #### [facility] [address] [address] [address] Na Gonzales Nitrite Ql (U) Negative Normal NEGATIVE [facility] Comment on above: Performed By: #### U AMIC #### [facility] [address] [place] [address] Dr. Na Gonzales pH (U) 6.0 [pH] Normal 5-9 [facility] Comment on above: Performed By: #### U AMIC #### [facility] [address] [place] [address] Dr. Na Gonzales RBC NONE SEEN Abnormal 0-2 [facility] Comment on above: Performed By: #### U AMIC #### [facility] [address] [place] [address] Dr. Na Gonzales SPEC GRAVITY 1.005 Normal 1.005-<=1.02 5 [facility] Comment on above: Performed By: #### U AMIC #### [facility] [address] [place] [address] Dr. Na Gonzales UA PROTEIN Negative Normal NEGATIVE/ TRACE [facility] Comment on above: Performed By: #### U AMIC #### [facility] [address] [place] [address] Dr. Na Gonzales Urobilinogen Qn (U) 0.2 {Irene'U}/dL Normal 0.2 - 1.0 [facility] Comment on above: Performed By: #### U AMIC #### [facility] [address] [place] [address] Dr. Na Gonzales WBC 0-2 Abnormal NONE SEEN [facility] Comment on above: Performed By: #### U AMIC #### [facility] [address] [place] [address] ABD/PELVIS WO CONon [...] DEMETRIS PATEL Date: 2021-04-06 18:26 Normal [facility] CULTURE STOOLon 02-22-2021 CULTURE STOOL Culture Observations : SALMONELLA CALD TO EDNA FELIX LPN@1225/02/21/21/RK Culture Observations: SALMONELLA CALD TO [facility]@1230/02/21/21/RK Culture Observations: SENDING ISOLATE TO [facility] FOR SEROTYPING Isolate 1 Salmonella enterica ssp enterica Heavy growth of ORGANISM 1 Salmonella enterica ssp enterica ANTIBIOTIC M.I.C RX STATUS Ampicillin <=2 S F Ceftazidime <=1 S F Ceftriaxone <=1 S F Ciprofloxacin <=0.25 S F Levofloxacin <=0.12 S F Trimethoprim/Sulfamethoxazole <=20 S F Normal [facility] Comment on above: Performed By: #### S TOOLCX #### [facility] [address] [place] [address] Dr. Na Gonzales CLOSTRIDIUM DIFFICILE PCRon 09-29-2021 C difficile Toxin Gene SHADI Negative Normal Negative [facility] Comment on above: Performed By: #### C TERARNCE #### [facility] [address] [address] [address] Na Gonzales Vital Signs Date Time Vital Sign Value Performing Clinician Facility 01-27-2024 15:15-0400 Blood Pressure Location Cristian JARAMILLOL [facility] 01-27-2024 15:15-0400 Diastolic blood pressure 82 mm[Hg] Cristian NILL [facility] 01-27-2024 15:15-0400 Heart rate 76 /min Cristian Secret [employer] [facility] 01-27-2024 15:15-0400 Respiratory rate 16 /min Cristian JARAMILLOL [facility] 01-27-2024 15:15-0400 Systolic blood pressure 120 mm[Hg] Cristian JARAMILLOL [facility] 12-23-2023 14:36-0400 Body height 167.64 cm [facility] 12-23-2023 14:36-0400 Body mass index (BMI) [Ratio] 35.2 kg/m2 [facility] 12-23-2023 14:36-0400 Body weight 98.93 kg [facility] 12-23-2023 14:36-0400 Diastolic blood pressure 86 mm[Hg] [facility] 12-23-2023 14:36-0400 Heart rate 98 /min [facility] 12-23-2023 14:36-0400 Respiratory rate 12 /min [facility] 12-23-2023 14:36-0400 Systolic blood pressure 141 mm[Hg] [facility] 09-25-2022 13:20-0400 Body height 167.6 cm Yolanda Gutierrez MD Work Phone: [facility] 09-25-2022 13:20-0400 Body weight 100.7 kg Yolanda Gutierrez MD Work Phone: [facility] 08-26-2022 14:30-0400 Body height 166.37 cm Peter Ball Other [facility] Other 08-26-2022 14:30-0400 Body mass index (BMI) [Ratio] 36.44 kg/m2 Peter Ball Other [facility] Other 08-26-2022 14:30-0400 Body weight 100.88 kg Peter Ball Other [facility] Other 08-26-2022 14:30-0400 Diastolic blood pressure 78 mm[Hg] Peter Ball Other [facility] Other 08-26-2022 14:30-0400 Respiratory rate 12 /min Peter Ball Other [facility] Other 08-26-2022 14:30-0400 Systolic blood pressure 122 mm[Hg] Peter Ball Other [facility] Other Encounters Encounter Date Encounter Type Care Provider Facility Start: 07-12-2024 End: 07-12-2024 ambulatory Felisa Ruiz MD Facility: [facility] Start: 03-24-2024 End: 03-24-2024 ambulatory Cristian CINTRON Facility: [facility] Start: 03-24-2024 End: 03-24-2024 Patient encounter procedure Cristian CINTRON [facility] Start: 03-03-2024 End: 03-03-2024 ambulatory Cristian CINTRON Facility:CD:[id number] Start: 01-27-2024 End: 01-27-2024 ambulatory PETER RUSH Facility: [facility] Start: 01-27-2024 End: 01-27-2024 Patient encounter procedure Cristian CINTRON [facility] Start: 12-26-2023 ambulatory Cristian CINTRON Facility:[facility] Start: 12-23-2023 End: 12-23-2023 ambulatory [facility] Work Phone: Start: 12-23-2023 End: 12-23-2023 Patient encounter procedure [facility] Physician [facility] Work Phone: Start: 07-02-2023 End: 07-02-2023 ambulatory Peter Rush Other [facility] Other Start: 07-02-2023 Telephone encounter Peter ARELLANO [facility] Start: 09-26-2022 End: 09-27-2022 ambulatory YOLANDA GUTIERREZ Facility:[facility] Start: 09-26-2022 End: 09-26-2022 Subsequent hospital visit by physician Brittany [facility] 2 Work Phone: [facility] Radiology Ultrasound Comment on above: Polyp of colon, unsp ecified part of colon, unspecified type [K63.5] Start: 09-25-2022 End: 09-25-2022 ambulatory YOLANDA GUTIERREZ Facility:[facility] Start: 09-25-2022 End: 09-25-2022 Patient encounter procedure Yolanda Gutierrez MD Work Phone: Gastroenterology Comment on above: Polyp of colon, unsp ecified part of colon, unspecified type (Primary Dx); Liver hemangioma Start: 08-31-2022 End: 08-31-2022 ambulatory Peter Rush Other [facility] Other Start: 08-31-2022 Telephone encounter Peter ARELLANO G [facility] Start: 08-26-2022 End: 08-26-2022 ambulatory Peter Rush Other [facility] Other Start: 08-26-2022 Patient encounter procedure Peter [facility] Start: 01-11-2022 End: 01-12-[address] PETER RUSH Facility:[facility] Start: 04-06-2021 End: 04-07-[address] PETER RUSH Facility:[facility] Start: 02-20-2021 End: 02-20-[address] PETER RUSH Facility:[facility] Start: 04-04-2020 Adult health examination Peter Rush Other [facility] Other Procedures Date Procedure Procedure Detail Performing [...] Total abdominal hyst erectomy with bilateral salpingo-oophorectomy Cirstian NILL Plan of Treatment Date Care Activity Detail Author Start: 09-26-2025 Diabetes Screening Diabetes Screenin g [facility] Start: 06-09-2023 Colonoscopy COLONOSCOPY [facility] Start: 06-09-2023 COLORECTAL CANCER SCREENING COLORECTAL CANCER SCREENING [facility] Start: 01-24-2023 Covid-19 Vaccine ( season) Covid-19 Vaccine ( season) [facility] Start: 01-24-2023 Influenza vaccination Influenza Vacc ine (#1) [facility] Start: 09-25-2022 End: 11-25-2022 CBC W Auto Differential panel - Blood CBC + DIFF Lab Routine Polyp of colon, unspecified part of colon, unspecified type Liver hemangioma Expected: 09/25/2022, Expires: 11/25/2022 [facility] Work Phone: Comment on above: Expected: 09/25/2022 , Expires: 11/25/2022 Start: 09-25-2022 End: 11-25-2022 Comprehensive metabolic 2000 panel - Serum or Plasma COMP METABOLIC PANEL Lab Routine Polyp of colon, unspecified part of colon, unspecified type Liver hemangioma Expected: 09/25/2022, Expires: 11/25/2022 [facility] Work Phone: Comment on above: Expected: 09/25/2022 , Expires: 11/25/2022 Start: 2022 ADVANCE DIRECTIVE DISCUSSION ADVANCE DIRECTIVE DISCUSSION [facility] Start: 2022 BONE DENSITY BONE DENSITY [facility] Start: 2022 Bone Density Screening Bone Density Screening [facility] Start: 2022 Pneumococcal Vaccine : 65+ (1 - PCV) Pneumococcal Vaccine: 65+ (1 - PCV) [facility] Start: 2022 PNEUMOCOCCAL: 65+ (1 - PCV) PNEUMOCOCCAL: 65+ (1 - PCV) [facility] Start: 05-26-2022 DEPRESSION ASSESSMENT DEPRESSION ASS ESSMENT [facility] Start: 09-29-2020 COVID-19 VACCINE (2 - Booster for Roe series) COVID-19 VACCINE (2 - Booster for Roe series) [facility] Start: 04-26-2018 DIABETES SCREEN DIABETES SCREEN [facility] Start: 2017 RSV Vaccine (1 - 1-d ose 60+ series) RSV Vaccine (1 - 1-dose 60+ series) [facility] Start: 2007 SHINGRIX VACCINE (1 of 2) SHINGRIX VACCINE (1 of 2) [facility] Start: 2002 COLOGUARD (FIT-DNA) COLOGUARD (FIT-D NA) [facility] Start: [address] COLONOGRAPHY [facility] Start: 2002 FECAL OCCULT BLOOD FECAL OCCULT BLOO D [facility] Start: 2002 Lipid 1996 panel - S fernando or Plasma Lipid Screening [facility] Start: 2002 LIPID SCREEN LIPID SCREEN [facility] Start: 2002 SIGMOIDOSCOPY SIGMOIDOSCOPY [facility] Start: 1997 Mammography [facility] Start: 1976 Urine microalbumin profile [facility] Start: 1975 HEPATITIS C SCREENING HEPATITIS C SC REENING [facility] Start: 1975 HIV SCREENING HIV SCREENING [facility] End: 09-26-2023 COLONOSCOPY DIAGNOSTIC COLONOSCOPY DIAGNOSTIC Endoscopy Routine Polyp of colon, unspecified part of colon, unspecified type Liver hemangioma 1 Occurrences starting 09/25/2022 until 09/26/2023 [facility] Work Phone: Comment on above: 1 Occurrences starti ng 09/25/2022 until 09/26/2023 End: 10-25-2023 US ABD RIGHT UPPER QUADRANT US ABD RIGHT UPPER QUADRANT Radiology Routine Polyp of colon, unspecified part of colon, unspecified type Liver hemangioma 1 Occurrences starting 09/25/2022 until 10/25/2023 [facility] Work Phone: Comment on above: 1 Occurrences starti ng 09/25/2022 until 10/25/2023 XR Knee - right 4 Views [facility] Immunizations Immunization Date Immunization Notes Care Provider Berkley boland 04-09-2022 influenza, high dose seasonal, preservative-free Peter Rush Other [facility] Other 04-09-2022 influenza virus vaccine, split virus (incl. purified surface antigen) Peter Rush Other [facility] Other 04-09-2022 influenza virus vaccine, unspecified formulation Ultra 2 Work Phone: [facility] 03-24-2021 influenza virus vaccine, split virus (incl. purified surface antigen) Peter Rush Other [facility] [employer] Other 03-24-2021 influenza virus vaccine, unspecified formulation [facility] 08-04-2020 COVID-19 Vaccine Roe - Documentation [...] Hospital Payers Date Payer Category Payer Unknown [id number] 2022 Unknown [id number] 2022 Medicare [id number] 2022 Medicare [id number] 1959 Unknown [id number] 1957 Unknown [id number] 1957 Unknown [id number] 1957 Unknown [id number] 1957 Unknown [id number] 1957 Unknown [id number] 1957 Unknown [id number] 1957 Unknown [id number] Private Health Insurance [facility] [employer] [id number] Social History Date Type Detail Facility Start: 09-02-2018 End: 09-25-2022 Sex Assigned At [facility] Start: 08-24-2013 End: 03-23-2024 Tobacco smoking status INIS Never smoked tobacco [facility] Start: 08-24-2013 Tobacco use and exposure Smokeless tobacco non-user [facility] Start: 09-02-2018 Alcohol intake Current drinke r of alcohol (finding) [facility] Start: 08-24-2013 [facility] Start: 1955 Sex Assigned At Female [facility] Start: 09-02-2018 End: 09-25-2022 History of Social function [facility] National Score (1-100), lower number is lower risk 67 [facility] Start: 04-11-2021 Gender identity Identifies as female gender (finding) [facility] Start: 11-24-2023 Tobacco smoking stat us INIS Ex-smoker (finding) [facility] Medical Equipment Procedure Code Equipment Code Equipment Origin al Text Equipment Identifier Dates Uwi-Gl-Y-Kind Implant - Crushed Cancellous 15cc [id number] Start: 07-19-2016 Comment on above: Description: ONE-OF- A-KIND IMPLANT - Crushed Cancellous 15cc. Brought into room at 0840. Handed sterily to field by Donovan Christensen RN to Abigail Hayes ASSISTANT PROFESSOR OF NURSING at 1015. Also handled by Moe Ulrich MD, and Abigail Carey MD. No preparation required. Plate Lcp Long T Stainless Steel 61mm Bone 2 Hole Variable Angle Fusion - [id number] Start: 07-19-2016 Screw Lcp 2.7mm T8 Stainless Steel 22mm Bone Variable Angle Lock Self Tap - [id number] Start: 07-19-2016 Washer Surfix 3.5mm Stainless Steel Orthopedic Lock Midfoot - [id number] Start: 07-19-2016 Functional Status Date Assessment Result Facility 03-24-2024 Functional Status N/A Kaur-Angy [facility] [place] 01-27-2024 Functional Status N/A Kaur[facility]Tit [facility] [place] Clinical Notes 08-26-2022 to 01-27-2024 Patient InstructionsYolanda [...] Status SARS-CoV-2 (COVID-19) Ad26 vaccine 08/04/2020 Recorded [facility] Comment on above: Result Comment: Elec [...] If you do not have a responsible coach tour driver (family member or friend) with you [...] If you do not have a responsible coach tour driver (family member or friend) with you to take you home, your exam cannot be done with sedation and will be cancelled. Please bring a list of all of your current medications, including any Gnxm-hyd-Lwyhrpe medications with you. Medications If you take [...] exam. 2 04/2019 documented in this encounter [facility] 09-25-2022 History and physical note Hepatology [facility] consult by Dr Rush for liver [...] cc dr Rush documented in this encounter [facility] 08-31-2022 Evaluation note Encounter Date Diagnosis Assessment Notes Aug, Menopause (ICD-10 - Z78.0) [facility] Other 04-03-2023 Evaluation note* Encounter Date Diagnosis [...] and consequences of not detecting early cancer [facility] [employer] Other Evaluation + Plan note No data available for this section [facility] [place] Evaluation note* Diagnosis Polyp of colon, unspecified part of colon, unspecified type- Primary Liver hemangioma Hemangioma of intra-abdominal structures documented [facility] this [facility] Diagnosis Polyp of colon, unspecified part of colon, unspecified type Liver hemangioma Hemangioma of intra-abdominal structures documented in this encounter [facility] noteNo Information[facility]ortEn[facility] [employer] Other Evaluation note* Diagnosis Onset Date Resolution Status Cavernous hemangioma of liver acute Knee pain, bilateral acute Menopause acute Obesity acute [facility], initial noneactive Screening mammogram for breast cancer noneactive [facility] Work Phone: History general Narrative - [...] History hysterectomy Hospitalization History c section, childbirth [facility] [employer] Other Hospital Discharge instructions No data available for this section [facility] Progress note No data available for this section [facility] [place] Reason for referral (narrative)* Outpatient Procedure (Routine) - Authorized Specialty Diagnoses / Procedures Referred By Ernst berry Referred To Contact [facility] Diagnoses Polyp of colon, unspecified part of colon, unspecified type Liver hemangioma Procedures COLONOSCOPY DIAGNOSTIC COLONOSCOPY FLX DX W/COLLJ SPEC WHEN PFRMD Yolanda Stafford MD [address] [place] [address] [facility] [place] [place] [address] Referral ID Status Reason Start Date Expiration Date Visits Requested Visits Authorized [id number] Authorized Auto-Generat ed Referral 09/25/2022 09/26/2023 1 1 * Diagnostic Procedure Only (Routine) - Authorized Specialty Diagnoses / Procedures Referred By Ernst berry Referred To Contact [facility] Diagnoses Polyp of colon, unspecified part of colon, unspecified type Liver hemangioma Procedures US ABD RIGHT UPPER QUADRANT US ABDOMINAL REAL TIME W/IMAGE LIMITED Yolanda Stafford MD [address] [place] [address] [facility] Imaging Referral ID Status Reason Start Date Expiration Date Visits Requested Visits Authorized [id number] Authorized Auto-Generat ed Referral 09/25/2022 10/25/2023 1 1 [facility] for referral (narrative)* Diagnostic Procedure Only (Routine) - Closed Specialty Diagnoses / Procedures Referred By Ernst berry Referred To Contact [facility] IMAGING Diagnoses Polyp of colon, unspecified part of colon, unspecified type Liver hemangioma Procedures US ABD RIGHT UPPER QUADRANT US ABDOMINAL REAL TIME W/IMAGE LIMITED Yolanda Stafford MD [address] [place] [address] [place] [facility] [place] [facility] Referral ID Status Reason Start Date Expiration Date V isits Requested Visits Authorized [id number] Closed Auto-Generate d Referral 09/25/2022 10/25/2023 1 1 [facility] for visit Narrative* Diagnostic Procedure Only (Routine) - Closed Specialty Diagnoses / Procedures Referred By Contac t Referred To Contact US IMAGING Diagnoses Polyp of colon, unspecified part of colon, unspecified type Liver hemangioma Procedures US ABD RIGHT UPPER QUADRANT US ABDOMINAL REAL TIME W/IMAGE LIMITED Yolanda Stafford MD [address] [place] [address] Us Imaging [place] [address] Referral ID Status Reason Start Date Expiration Date V isits Requested Visits Authorized [id number] Closed Auto-Generate d Referral 09/25/2022 10/25/2023 1 1 [facility] Summary Purpose Family History No Family History Records Found Relationship Condition Age at Onset Recorded Date/T rakan brother Asthma Unknown father Malignant neoplasm Unknown Family history of lung cancer Unknown mother Family history of mental disorder Unknown Advance Directives No Advanced Directives Records FoundDocuments on File Type Date Recorded 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 Advance Directive(s) 10/13/2013 10:12 PM [...] content) DATE CREATED AUTHOR 01/17/2022 [facility] DATE CREATED AUTHOR AUTHOR'S ORGANIZ ATION 09/27/2022 [facility] DATE CREATED AUTHOR AUTHOR'S ORGANIZ ATION 10/04/2022 [facility] DATE CREATED AUTHOR AUTHOR'S ORGANIZ ATION 03/26/2024 [facility] DATE CREATED AUTHOR AUTHOR'S ORGANIZ ATION 07/16/2024 [facility] REASON FOR VISIT (unrecogniz ed section and content) Reason Comments New Patient Source Comments (unrecognize d section and content) In the event this informatio n is protected by the Federal Confidentiality of Alcohol and Drug Abuse Patient Records regulations: The Federal rules restrict any use of the information to criminally investigate or prosecute any alcohol or drug abuse patient.[facility] the event this information is protected by the Federal Confidentiality of Alcohol and Drug Abuse Patient Records regulations: The Federal rules restrict any use of the information to criminally investigate or prosecute any alcohol or drug abuse patient.[facility] Care Teams (unrecognized sec tion and content) 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 [facility]. provides no warranty or guarantee of the accuracy or completeness of information in this document.
--- NOTE | 2024-10-21 10:21 | PM.CN ---
Consult Note: HPI Data of Consult Patient: known to practice within the last 3 years Consult date: 10/21/24 Requesting Physician: Olivia Porter NP Primary Care Provider: Peter Rush DO Consult Narrative Reason for consult: bilateral knee pain Narrative: 69yof who presents for evaluation. longstanding bilateral knee pain, is scheduled to have major foot surgery this summer and will be on knee scooter. has had steroid injection and DUMONT injection in the past, with some benefit. engages in a series of provider directed home exercises >6 weeks, without significant benefit. uses celebrex as needed. denies adverse med side effects. recently underwent bilateral genicular nerve block with >80% improvement in pain preop pain up to 10/10 post op pain 1-/10. pt interested in proceed with genicular RFA as she will not be having TKR surgery at this time. cc:: CC: Olivia Porter NP Review of Systems ROS Status of ROS 10 or more systems reviewed and unremarkable except as noted in history and below PFSH [facility] Medical History PONV (postoperative nausea and vomiting) ?R11.2 - Nausea with vomiting, unspecified (ICD-10) ?Z98.890 - Other specified postprocedural states (ICD-10) Liver lesion ?K76.9 - Liver disease, unspecified (ICD-10) Malignant neoplasm of colon ?C18.9 - Malignant neoplasm of colon, unspecified (ICD-10) Hepatic hemangioma ?D18.03 - Hemangioma of intra-abdominal structures (ICD-10) Obesity ?E66.9 - Obesity, unspecified (ICD-10) GERD (gastroesophageal reflux disease) ?K21.9 - Gastro-esophageal reflux disease without esophagitis (ICD-10) Surgical History H/O foot surgery ?Z98.890 - Other specified postprocedural states (ICD-10) History of lithotripsy ?Z98.890 - Other specified postprocedural states (ICD-10) History of total abdominal hysterectomy and bilateral salpingo-oophorectomy ?Z90.710 - Acquired absence of both cervix and uterus (ICD-10) ?Z90.722 - Acquired absence of ovaries, bilateral (ICD-10) ?Z90.79 - Acquired absence of other genital organ(s) (ICD-10) Hx of lumbosacral spine surgery ?Z98.890 - Other specified postprocedural states (ICD-10) H/O excision of hemangioma ?Z98.890 - Other specified postprocedural states (ICD-10) ?Z86.018 - Personal history of other benign neoplasm (ICD-10) H/O cystoscopy ?Z98.890 - Other specified postprocedural states (ICD-10) History of cholecystectomy ?Z90.49 - Acquired absence of other specified parts of digestive tract (ICD-10) H/O esophagogastroduodenoscopy ?Z98.890 - Other specified postprocedural states (ICD-10) H/O colonoscopy ?Z98.890 - Other specified postprocedural states (ICD-10) Family History Father Family history of cancer Other Atrial fibrillation Dementia Family history of stroke Parkinsons Social History Within the past year, how often did you have a drink containing alcohol: monthly or less Within the past year, how often did you have six or more drinks on one occasion: never Smoking status: Never smoker Second hand tobacco smoke exposure: No Non-prescribed substance use: denies use Previous occupational history: Retired Highest level of school completed/degree received: some college, no degree Meds Home Medications and Allergies Home Medications ?Medication ?Instructions ?Recorded ?Confirmed ?Type celecoxib 200 mg capsule 200 mg PO DAILY 02/20/24 10/11/24 History estradiol 0.01% (0.1 mg/gram) 1 appful vaginal DAILY 02/20/24 10/11/24 History vaginal cream aspirin 81 mg capsule 81 mg PO DAILY 03/03/24 10/11/24 History krill oil 500 mg capsule 500 mg PO DAILY 03/03/24 10/11/24 History Allergies Allergy/AdvReac Type Severity Reaction Status Date / Time morphine AdvReac Unknown Hypotension Verified 10/11/24 07:48 latex AdvReac Hives Verified 10/11/24 07:48 Latex, Natural Rubber AdvReac Hives Verified 10/11/24 07:48 Exam Narrative Exam Narrative: Psych-alert and oriented x 3.? Attentive and appropriate, constitutionally normal, displays normal mood and affect per situation.? There are no obvious deficits in memory, reasoning, or intellect. Extremities-lower extremities are warm with minimal edema and palpable pulses. Knee-examination of the bilateral knee reveals tenderness to palpation over the superior, inferior, lateral, and medial aspect of the knee.? Some swelling is noted without erythema. Pain is elicited with flexion and extension of the knee both actively and passively.? Some grinding is noted with these motions.? There is no notable ligamental laxity or instability.? Coordination remains intact.? Gait remains antalgic. Results Additional Findings Additional findings: If on a controlled substance or opioids, I have checked an [place] report on this patient and there are no aberrancies noted in the prescribing history.??If on a controlled substance or opioid a drug screen was completed and reviewed within the last year, and if there has not been a drug screen completed we ordered one today to monitor higher risk, state monitored pain medication use. As part of providing excellent, safe, comprehensive care, the following was completed at our patient's visit: 1. A medication reconciliation and review to ensure accurate knowledge of current/active medications, including asking our patients to inform us about any [id number] medications or herbal remedies/nutritional supplements/alternative remedies. 2. A review to specifically ensure our patients have had annual screening for screening for depression, screening for tobacco use, and screening for unhealthy alcohol use. For concerning screenings had a discussion with the patient, provided patient education, and recommended follow-up with primary care provider when appropriate. If patient noted with a risk of falling, they received education on strength, gait, and balance training to prevent future risk of falling. Portions of this note may have been carried over from the previous visit and updated as appropriate. Please note this office utilizes paper charting in addition to the electronic medical record. A list of current medications, vitals, and PMH is available there as the clinical staff outside of myself do not have access to [facility] charting during the clinic day operations. As part of providing quality comprehensive care the current medications, vitals, and PMH were reviewed in the paper chart. Assessment and Plan Assessment and Plan (1) Osteoarthritis of knees, bilateral: Qualifiers: Osteoarthritis type: primary Qualified Code(s): M17.0 - Bilateral primary osteoarthritis of knee (2) Bilateral knee pain: Plan 69yof who presents for evaluation. failed conservative measures, as noted. imaging reviewed, which is significant for bilateral knee osteoarthritis. given symptoms and imaging. proceed with left then right genicular RFA under fluoroscopy. continue current medications, no changes. f/u 1 month after RFA complete
== END 2024-10-21 09:42 | disposition home or self-care (01) ==
LOC: PM 09:42
PROVIDERS: PCP Internal Medicine; Visit Provider Nurse Practitioner
DX: M17.0 Bilateral primary osteoarthritis of knee (principal); M25.561 Pain in right knee; M25.562 Pain in left knee
CPT/HCPCS: G0463

== ENCOUNTER 2024-11-01 08:59 | Day surgery (SDC) | payer MEDICARE, OTHER, SELFPAY ==
--- OUTSIDE RECORDS SUMMARY | 2024-11-01 09:20 | XMS_ITS | CCD ---
Author Organization [facility] Care Team Providers Care Internet Ecommerce Specialist Name Role Phone VICTOR MANUEL, DR COBIAN [...] CINTRON Attending Unavailable BALL, PETER Referring Unavailable NILLCristian Attending Unavailable NILL, Cristian Hanson Attending Unavailable Joseph WILSON, Felisa Gauthier Attending Unavailable Joseph WILSON, Felisa Gauthier Attending Unavailable Allergies Allergy Classification Reported Allergen(s) Allergy Type Date of Onset Reaction(s) Facility (4 sources) Morphine; Translations: [MORPHINE] Drug Allergy 3 [facility] Repository (7 sources) Morphine; Translations: [morphine] Drug Allergy 3 Other: See Comments, Patient reported problems (finding) [facility] (3 sources) Latex; Translations: [LATEX] Drug Allergy 3 Rash [facility] (1 source) patient allergy list reviewed by nurse or physicia Propensity to adverse reactions 8 Comment:Done Countdown Other Medications Current Medications Medication Drug Class(es) [...] tw o times a week. estrogens, conjugated (intermediate) 0.625 mg/ml vaginal cream (3 sources) Estrogen [...] on above: Take 1 capsule by mo ut once daily. pantoprazole 40 mg delayed release oral tablet (1 source) Proton Pump Inhibitor Start: 4 take 1 tablet by mouth twice daily Pantoprazole [address] Tab 40 mg = 1 tab(s), Oral, BID, Refills(s) 0 Start Date: 03/18/24 Status: Ordered polyethylene glycol 3350 253912 mg / potassium chloride 2970 mg / sodium bicarbonate 6740 mg / sodium chloride 5860 mg / sodium sulfate 32954 mg powder for oral solution (1 source) [...] choosing us for your care. Ike Kaur [facility] General Surgery Office/Clini c Noteon 03-24-2024 General [...] SARS-CoV-2 (COVID-19) Ad26 vaccine 08/04/2020 Recorded Normal [facility] Comment on above: Result Comment: Elec tronically Signed By: ABDULAZIZ WILSON, Cristian Doshi\Date and Time Signed: 03/24/24 16:23 EDT Reminderson 03-04-2024 Reminders Reminders From: Patti Douglas LPN To: GSN - Clinical; Sent: 03/04/2024 14:13:04 EDT Show up: 02/01/2034 07:00:00 EDT Subject: colonoscopy recall Due Date/Time: 03/03/2034 07:00:00 EDT Reminder/Recall Patient due for screening colonoscopy 03/03/2034. Normal [facility] CBC W Auto Differential pane l (Bld)on 09-26-2022 Basophils (Bld) [#/Vol] 0.04 10*3/uL Normal <0.11 [facility] Comment on above: Order Comment: Speci men Type: BLOOD SPECIMEN Ordering Facility: [facility] Address: [address] [address] Performed By: #### 5 7021-8 #### [facility] CLIA [id number] [address] [place] [address] [place] Basophils/100 WBC (Bld) 0.7 % Normal [facility] Comment on above: Order Comment: Speci men Type: BLOOD SPECIMEN Ordering Facility: [facility] Address: [address] [address] Performed By: #### 5 7021-8 #### [facility] CLIA [id number] [address] [place] [address] [place] Differential cell count method Nom (Bld) Auto Normal [facility] Comment on above: Order Comment: Speci men Type: BLOOD SPECIMEN Ordering Facility: [facility] Address: [address] [address] Performed By: #### 5 7021-8 #### [facility] CLIA [id number] [address] [place] [address] [place] Eosinophils (Bld) [#/Vol] 0.04 10*3/uL Normal <0.46 [facility] Comment on above: Order Comment: Speci men Type: BLOOD SPECIMEN Ordering Facility: [facility] Address: [address] [address] Performed By: #### 5 7021-8 #### [facility] IA [id number] [address] [place] [address] [place] Eosinophils/100 WBC (Bld) 0.7 % Normal [facility] Comment on above: Order Comment: Speci men Type: BLOOD SPECIMEN Ordering Facility: [facility] Address: [address] [place] [address] Performed By: #### 5 7021-8 #### [facility] IA [id number] [address] [place] [address] [place] Erythrocyte distribution width (RBC) [Ratio] 12.2 % Normal 11.5-15.0 [facility] Comment on above: Order Comment: Speci men Type: BLOOD SPECIMEN Ordering Facility: [facility] Address: [address] [place] [address] Performed By: #### 5 7021-8 #### [facility] IA [id number] [address] [place] [address] [place] Hematocrit (Bld) [Volume fraction] 43.6 % Normal 36.0-46.0 [facility] Comment on above: Order Comment: Speci men Type: BLOOD SPECIMEN Ordering Facility: [facility] Address: [address] [address] Performed By: #### 5 7021-8 #### [facility] IA [id number] [address] [place] [address] [place] Hemoglobin (Bld) [Mass/Vol] 14.4 g/dL Normal 11.5-15.5 [facility] Comment on above: Order Comment: Speci men Type: BLOOD SPECIMEN Ordering Facility: [facility] Address: [address] Performed By: #### 5 7021-8 #### [facility] IA [id number] [address] [place] [address] [place] Immature granulocytes (Bld) [#/Vol] 10*3/uL Normal <0.10 [facility] Comment on above: Order Comment: Speci men Type: BLOOD SPECIMEN Ordering Facility: [facility] Address: [address] [address] Performed By: #### 5 7021-8 #### [facility] IA [id number] [address] [place] Immature granulocytes/100 WBC (Bld) 0.3 % Normal [facility] Comment on above: Order Comment: Speci men Type: BLOOD SPECIMEN Ordering Facility: [facility] Address: [address] [address] Performed By: #### 5 7021-8 #### [facility] IA [id number] [address] [place] [address] [place] Lymphocytes (Bld) [#/Vol] 1.48 10*3/uL Normal 1.00-4.00 [facility] Comment on above: Order Comment: Speci men Type: BLOOD SPECIMEN Ordering Facility: [facility] Address: [address] [address] Performed By: #### 5 7021-8 #### [facility] IA [id number] [address] [place] [address] [place] Lymphocytes/100 WBC (Bld) 25.8 % Normal [facility] Comment on above: Order Comment: Speci men Type: BLOOD SPECIMEN Ordering Facility: [facility] Address: [address] Performed By: #### 5 7021-8 #### [facility] IA [id number] [address] [place] [address] [place] MCH (RBC) [Entitic mass] 30.5 pg Normal 26.0-34.0 [facility] Comment on above: Order Comment: Speci men Type: BLOOD SPECIMEN Ordering Facility: [facility] Address: [address] [address] Performed By: #### 5 7021-8 #### [facility] IA [id number] [address] [place] [address] [place] MCHC (RBC) [Mass/Vol] 33.0 g/dL Normal 30.5-36.0 [facility] Comment on above: Order Comment: Speci men Type: BLOOD SPECIMEN Ordering Facility: [facility] Address: [address] [address] Performed By: #### 5 7021-8 #### [facility] IA [id number] [address] [place] [address] [place] MCV (RBC) [Entitic vol] 92.4 fL Normal 80.0-100.0 [facility] Comment on above: Order Comment: Speci men Type: BLOOD SPECIMEN Ordering Facility: [facility] Address: [address] [address] Performed By: #### 5 7021-8 #### [facility] IA [id number] [address] [place] [address] [place] Monocytes (Bld) [#/Vol] 0.55 10*3/uL Normal <0.87 [facility] Comment on above: Order Comment: Speci men Type: BLOOD SPECIMEN Ordering Facility: [facility] Address: [address] [address] Performed By: #### 5 7021-8 #### [facility] IA [id number] [address] [place] Monocytes/100 WBC (Bld) 9.6 % Normal [facility] Comment on above: Order Comment: Speci men Type: BLOOD SPECIMEN Ordering Facility: [facility] Address: [address] [address] Performed By: #### 5 7021-8 #### [facility] CLIA [id number] [address] [place] [address] [place] Neutrophils (Bld) [#/Vol] 3.61 10*3/uL Normal 1.45-7.50 [facility] Comment on above: Order Comment: Speci men Type: BLOOD SPECIMEN Ordering Facility: [facility] Address: [address] [address] Performed By: #### 5 7021-8 #### [facility] CLIA [id number] [address] [place] [address] [place] Neutrophils/100 WBC (Bld) 62.9 % Normal [facility] Comment on above: Order Comment: Speci men Type: BLOOD SPECIMEN Ordering Facility: [facility] Address: [address] [address] Performed By: #### 5 7021-8 #### [facility] CLIA [id number] [address] [place] [address] [place] Nucleated RBC (Bld) [#/Vol] 10*3/uL Normal <0.01 [facility] Comment on above: Order Comment: Speci men Type: BLOOD SPECIMEN Ordering Facility: [facility] Address: [address] [address] Performed By: #### 5 7021-8 #### [facility] CLIA [id number] [address] [place] [address] [place] Nucleated RBC/100 WBC (Bld) [Ratio] 0.0 /100 WBC Normal [facility] Comment on above: Order Comment: Speci men Type: BLOOD SPECIMEN Ordering Facility: [facility] Address: [address] Performed By: #### 5 7021-8 #### [facility] CLIA [id number] [address] [place] [address] [place] Platelet mean volume (Bld) [Entitic vol] 9.2 fL Normal 9.0-12.7 [facility] Comment on above: Order Comment: Speci men Type: BLOOD SPECIMEN Ordering Facility: [facility] Address: [address] Performed By: #### 5 7021-8 #### [facility] CLIA [id number] [address] [place] [address] [place] Platelets (Bld) [#/Vol] 267 10*3/uL Normal 150-400 [facility] Comment on above: Order Comment: Speci men Type: BLOOD SPECIMEN Ordering Facility: [facility] Address: [address] Performed By: #### 5 7021-8 #### [facility] IA [id number] [address] [place] [address] [place] RBC (Bld) [#/Vol] 4.72 10*6/uL Normal 3.90-5.20 [facility] Comment on above: Order Comment: Speci men Type: BLOOD SPECIMEN Ordering Facility: [facility] Address: [address] [place] [address] Performed By: #### 5 7021-8 #### [facility] IA [id number] [address] [place] WBC (Bld) [#/Vol] 5.74 10*3/uL Normal 3.70-11.00 [facility] Comment on above: Order Comment: Speci men Type: BLOOD SPECIMEN Ordering Facility: [facility] Address: [address] [place], [place] [address] Performed By: #### 5 7021-8 #### [facility] IA [id number] [address] [facility] Comprehensive metabolic 2000 panelon 09-26-2022 Albumin [Mass/Vol] 4.6 g/dL Normal 3.9-4.9 [facility] Comment on above: Order Comment: Speci men Type: BLOOD SPECIMEN Ordering Facility: [facility] Address: [address] [place], [place] [address] Performed By: #### 2 4323-8 #### [facility] IA [id number] [address] [place] [address] [place] ALP [Catalytic activity/Vol] 89 U/L Normal 34-123 [facility] Comment on above: Order Comment: Speci men Type: BLOOD SPECIMEN Ordering Facility: [facility] Address: [address] [address] Performed By: #### 2 4323-8 #### [facility] CLIA [id number] [address] [place] [address] [place] ALT [Catalytic activity/Vol] 28 U/L Normal 7-38 [facility] Comment on above: Order Comment: Speci men Type: BLOOD SPECIMEN Ordering Facility: [facility] Address: [address] [address] Performed By: #### 2 4323-8 #### [facility] CLIA [id number] [place] [address] [place] Anion gap [Moles/Vol] 9 mmol/L Normal 9-18 [facility] Comment on above: Order Comment: Speci men Type: BLOOD SPECIMEN Ordering Facility: [facility] Address: [address] [address] Performed By: #### 2 4323-8 #### [facility] CLIA [id number] [address] [place] [address] [place] AST [Catalytic activity/Vol] 21 U/L Normal 13-35 [facility] Comment on above: Order Comment: Speci men Type: BLOOD SPECIMEN Ordering Facility: [facility] Address: [address] [address] Performed By: #### 2 4323-8 #### [facility] CLIA [id number] [address] [place] [address] [place] Bilirubin [Mass/Vol] 0.5 mg/dL Normal 0.2-1.3 [facility] Comment on above: Order Comment: Speci men Type: BLOOD SPECIMEN Ordering Facility: [facility] Address: [address] [address] Performed By: #### 2 4323-8 #### [facility] CLIA [id number] [address] [place] [address] [place] Calcium [Mass/Vol] 9.7 mg/dL Normal 8.5-10.2 [facility] Comment on above: Order Comment: Speci men Type: BLOOD SPECIMEN Ordering Facility: [facility] Address: [address] [address] Performed By: #### 2 4323-8 #### [facility] CLIA [id number] [address] [place] [address] [place] Chloride [Moles/Vol] 104 mmol/L Normal 97-105 [facility] Comment on above: Order Comment: Speci men Type: BLOOD SPECIMEN Ordering Facility: [facility] Address: [address] [address] Performed By: #### 2 4323-8 #### [facility] CLIA [id number] [address] [place] [address] [place] CO2 [Moles/Vol] 29 mmol/L Normal 22-30 [facility] Comment on above: Order Comment: Speci men Type: BLOOD SPECIMEN Ordering Facility: [facility] Address: [address] [address] Performed By: #### 2 4323-8 #### [facility] CLIA [id number] [address] [place] [address] [place] Creatinine [Mass/Vol] 0.68 mg/dL Normal 0.58-0.96 [facility] Comment on above: Order Comment: Speci men Type: BLOOD SPECIMEN Ordering Facility: [facility] Address: [address] [place], [place] [address] Performed By: #### 2 4323-8 #### [facility] CLIA [id number] [address] [place] [address] [place] ESTIMATED GLOMERULAR FILTRATION RATE 97 mL/min/1.73m??? Normal >=60 [facility] Comment on above: Order Comment: Speci men Type: BLOOD SPECIMEN Ordering Facility: [facility] Address: [address] [place] [address] Result Comment: Barbara mated Glomerular Filtration Rate [...] GFR. Performed By: #### 2 4323-8 #### [facility] CLIA [id number] [address] [place] [address] [place] Glucose [Mass/Vol] 98 mg/dL Normal 74-99 [facility] Comment on above: Order Comment: Speci men Type: BLOOD SPECIMEN Ordering Facility: [facility] Address: [address] [id number] Result Comment: The [place] [employer] (ADA) provides guidance for cutoff [...] Standards of Medical Care in Diabetes 2016, [place] [employer]. Diabetes Care. 2016.39(Suppl 1). Performed By: #### 2 4323-8 #### [facility] CLIA [id number] [address] [place] [address] [place] Potassium [Moles/Vol] 4.6 mmol/L Normal 3.7-5.1 [facility] Comment on above: Order Comment: Speci men Type: BLOOD SPECIMEN Ordering Facility: [facility] Address: [address] [place] [address] Performed By: #### 2 4323-8 #### [facility] CLIA [id number] [address] [place] [address] [place] Protein [Mass/Vol] 7.4 g/dL Normal 6.3-8.0 [facility] Comment on above: Order Comment: Speci men Type: BLOOD SPECIMEN Ordering Facility: [facility] Address: [address] [address] Performed By: #### 2 4323-8 #### [facility] CLIA [id number] [address] [place] [address] [place] Sodium [Moles/Vol] 142 mmol/L Normal 136-144 [facility] Comment on above: Order Comment: Speci men Type: BLOOD SPECIMEN Ordering Facility: [facility] Address: [address] [address] Performed By: #### 2 4323-8 #### [facility] CLIA [id number] [address] [place] [address] [place] Urea nitrogen [Mass/Vol] 17 mg/dL Normal 7-21 [facility] Comment on above: Order Comment: Speci men Type: BLOOD SPECIMEN Ordering Facility: [facility] Address: [address] [address] Performed By: #### 2 4323-8 #### [facility] CLIA [id number] [address] [place] [address] [place] No Panel Informationon 09-26 [facility] US ABD RIGHT UPPER QUADRANTo [...] and could represent the previously described hemangiomas. [place]: DARRELL Transcribe Date/Time: Oct 03 2022 6:03A Dictated by : NAS DENSON MD This examination was interpreted and the report reviewed and electronically signed by: NAS DENSON MD on Oct 03 2022 6:08AM EST [id number] [facility] US ABD SPLEEN -NBon 09-27-19 US ABD SPLEEN -NB * * *Final Report* * * DATE OF EXAM: Sep 26 2022 1:18PM [facility] 1232 - US ABD SPLEEN -NB / [...] and could represent the previously described hemangiomas. [place]: PSYCHIATRIC Transcribe Date/Time: Oct 03 2022 6:03A Dictated by : NAS DENSON MD This examination was interpreted and the report reviewed and electronically signed by: NAS DENSON MD on Oct 03 2022 6:08AM EST [id number] [facility] CNOVon 09-25-2022 CNOV Office Visit (GASTAV ) BRIANNABETTINA ([id number]) 1955 F Date Time Provider Department 09/25/22 1:30 PM YOLANDA STAFFORD During your visit today, we recorded the following information about you: Weight Height 100.7 kg 1.676 m Yolanda Ta MD 09/25/2022 2:21 PM Signed Hepatology [facility] HPI consult by Dr Rush for [...] If you do not have a responsible auto driver (family member or friend) with you [...] Imodium, Ka (more content not included)... Normal [facility] [place] HISTORY PHYSICALon HISTORY PHYSICAL HNO ID: [id number] Author: Yolanda Gutierrez MD Service: ? Author Type: Physician Type: HANDP Filed: 09/25/2022 2:21 PM Note Text: Hepatology [facility] [place]orecita HPI consult by Dr Rush for [...] Yolanda Walters MD cc dr Rush Normal [facility] [place] CULTURE URINEon 01-11-2022 CULTURE URINE Culture Observations : MODERATE GROWTH OF MIXED GENITAL JESUS. NO POTENTIAL PATHOGENS SEEN. Normal [facility] Comment on above: Performed By: #### U RCX #### [facility] [address] [place], [place] [address] Dr. Na Gonzales UA RANDOM W/MICROSCOPICon BACTERIA NONE SEEN Normal NONE SEEN [facility] Comment on above: Performed By: #### U AMIC #### [facility] [address] [place], [place] [address] Dr. Na Gonzales Bilirubin Ql (U) Negative Normal NEGATIVE [facility] Comment on above: Performed By: #### U AMIC #### [facility] [address] [address] [address] Na Gonzales CAST NONE SEEN Normal NONE SEEN [facility] Comment on above: Performed By: #### U AMIC #### [facility] [address] [address] [address] Na Gonzales Clarity (U) CLEAR Normal CLEAR [facility] Comment on above: Performed By: #### U AMIC #### [facility] [address] [address] [address] Na Gonzales Color (U) LT. YELLOW Normal YELLOW [facility] Comment on above: Performed By: #### U AMIC #### [facility] [address] [place] [address] Dr. Na Gonzales Crystals LM Nom (Urine sed) NONE SEEN Normal NONE SEEN [facility] Comment on above: Performed By: #### U AMIC #### [facility] [address] [address] [address] Na Gonzales Epithelial cells LM Ql (Urine sed) NONE SEEN Normal NONE SEEN /RARE [facility] Comment on above: Performed By: #### U AMIC #### [facility] [address] [place] [address] Dr. Na Gonzales Glucose Ql (U) Negative Normal NEGATIVE [facility] Comment on above: Performed By: #### U AMIC #### [facility] [address] [address] [address] Na Gonzales Hemoglobin Ql (U) Negative Normal NEGATIVE [facility] Comment on above: Performed By: #### U AMIC #### [facility] [address] [address] [address] Na Gonzales Ketones Ql (U) Negative Normal NEGATIVE [facility] Comment on above: Performed By: #### U AMIC #### [facility] [address] [place] [address] Dr. Na Gonzales LEUKOCYTES SMALL Abnormal NEGATIVE [facility] Comment on above: Performed By: #### U AMIC #### [facility] [address] [place] [address] Dr. Na Gonzales MUCOUS NONE SEEN Normal NONE SEEN [facility] Comment on above: Performed By: #### U AMIC #### [facility] [address] [address] [address] Na Gonzales Nitrite Ql (U) Negative Normal NEGATIVE [facility] Comment on above: Performed By: #### U AMIC #### [facility] [address] [address] [address] Na Gonzales pH (U) 6.0 [pH] Normal 5-9 [facility] Comment on above: Performed By: #### U AMIC #### [facility] [address] [address] [address] Na Gonzales RBC NONE SEEN Abnormal 0-2 [facility] Comment on above: Performed By: #### U AMIC #### [facility] [address] [place] [address] Dr. Na Gonzales SPEC GRAVITY 1.005 Normal 1.005-<=1.02 5 [facility] Comment on above: Performed By: #### U AMIC #### [facility] [address] [place] [address] Dr. Na Gonzales UA PROTEIN Negative Normal NEGATIVE/ TRACE [facility] Comment on above: Performed By: #### U AMIC #### [facility] [address] [place] [address] Dr. Na Gonzales Urobilinogen Qn (U) 0.2 {Irene'U}/dL Normal 0.2 - 1.0 [facility] Comment on above: Performed By: #### U AMIC #### [facility] [address] [place] [address] Dr. Na Gonzales WBC 0-2 Abnormal NONE SEEN [facility] Comment on above: Performed By: #### U AMIC #### [facility] [address] [place] [address] ABD/PELVIS WO CONon [...] by: DEMETRIS PATEL Date: 2021-04-06 18:26 Normal [facility] CULTURE STOOLon 02-22-2021 CULTURE STOOL Culture Observations : SALMONELLA CALD TO EDNA FELIX LPN@1225/02/21/21/RK Culture Observations: [facility]RK Culture Observations: SENDING ISOLATE TO [facility] FOR SEROTYPING Isolate 1 Salmonella enterica ssp enterica Heavy growth of ORGANISM 1 Salmonella enterica ssp enterica ANTIBIOTIC M.I.C RX STATUS Ampicillin <=2 S F Ceftazidime <=1 S F Ceftriaxone <=1 S F Ciprofloxacin <=0.25 S F Levofloxacin <=0.12 S F Trimethoprim/Sulfamethoxazole <=20 S F Normal [facility] Comment on above: Performed By: #### S TOOLCX #### [facility] [address] [place] [address] Dr. Na Gonzales CLOSTRIDIUM DIFFICILE PCRon 02-21-2021 C difficile Toxin Gene SAHDI Negative Normal Negative [facility] Comment on above: Performed By: #### C TERRANCE #### [facility] [address] [place] [address] Dr. Na Gonzales Vital Signs Date Time Vital Sign Value Performing Clinician Facility 01-27-2024 15:15-0400 Blood Pressure Location Cristian NILL [facility] 01-27-2024 15:15-0400 Diastolic blood pressure 82 mm[Hg] Cristian NILL [facility] 01-27-2024 15:15-0400 Heart rate 76 /min Cristian NILL [facility] 01-27-2024 15:15-0400 Respiratory rate 16 /min Cristian NILL [facility] 01-27-2024 15:15-0400 Systolic blood pressure 120 mm[Hg] Cristian NILL [facility] 12-23-2023 14:36-0400 Body height 167.64 cm [facility] 12-23-2023 14:36-0400 Body mass index (BMI) [Ratio] 35.2 kg/m2 [facility] 12-23-2023 14:36-0400 Body weight 98.93 kg [facility] 12-23-2023 14:36-0400 Diastolic blood pressure 86 mm[Hg] [facility] 12-23-2023 14:36-0400 Heart rate 98 /min [facility] 12-23-2023 14:36-0400 Respiratory rate 12 /min [facility] 12-23-2023 14:36-0400 Systolic blood pressure 141 mm[Hg] [facility] 09-25-2022 13:20-0400 Body height 167.6 cm Yolanda Gutierrez MD Work Phone: [facility] 09-25-2022 13:20-0400 Body weight 100.7 kg Yolanda Gutierrez MD Work Phone: [facility] 08-26-2022 14:30-0400 Body height 166.37 cm Peter Ball Other [facility] Other 08-26-2022 14:30-0400 Body mass index (BMI) [Ratio] 36.44 kg/m2 Peter Ball Other [facility] Other 08-26-2022 14:30-0400 Body weight 100.88 kg Peter Ball Other [facility] Other 08-26-2022 14:30-0400 Diastolic blood pressure 78 mm[Hg] Peter Ball Other [facility] Other 08-26-2022 14:30-0400 Respiratory rate 12 /min Peter Ball Other [facility] Other 08-26-2022 14:30-0400 Systolic blood pressure 122 mm[Hg] Peter Bright.md Other [facility] Other Encounters Encounter Date Encounter Type Care Provider Facility Start: 10-11-2024 End: 10-11-2024 ambulatory Felisa Ruiz MD Facility: [facility] Start: 07-12-2024 End: 07-12-2024 ambulatory Felisa Ruiz MD Facility: [facility] Start: 03-24-2024 End: 03-24-2024 ambulatory Cristian CINTRON Facility: [facility] Start: 03-24-2024 End: 03-24-2024 Patient encounter procedure Cristian CINTRON [facility] [place] Start: 03-03-2024 End: 03-03-2024 ambulatory Cristian CINTRON Facility:CD:[id number] Start: 01-27-2024 End: 01-27-2024 ambulatory PETER VICTOR MANUEL Facility:[facility] Start: 01-27-2024 End: 01-27-2024 Patient encounter procedure Cristian CINTRON [facility] Start: 12-26-2023 ambulatory Cristian JARAMILLOAnika Facility:[facility] Start: 12-23-2023 End: 12-23-2023 ambulatory [facility] Work Phone: Start: 12-23-2023 End: 12-23-[address] [facility] Physician [facility] Victor Manuel [facility] Work Phone: Start: 07-02-2023 End: 07-02-2023 ambulatory Peter Rush Other [facility] Other Start: 07-02-2023 Telephone encounter Peter Munson [facility] Start: 09-26-2022 End: 09-27-2022 ambulatory YOLANDA GUTIERREZ Facility:[facility] Start: 09-26-2022 End: 09-26-2022 Subsequent hospital visit by physician Brittany [facility] Work Phone: [facility] Radiology Ultrasound Comment on above: Polyp of colon, unsp ecified part of colon, unspecified type [K63.5] Start: 09-25-2022 End: 09-25-2022 ambulatory YOLANDA GUTIERREZ Facility:[facility] Start: 09-25-2022 End: 09-25-2022 Patient encounter procedure Yolanda Gutierrez MD Work Phone: Gastroenterology Comment on above: Polyp of colon, unsp ecified part of colon, unspecified type (Primary Dx); Liver hemangioma Start: 08-31-2022 End: 08-31-2022 ambulatory Peter Rush Other [facility] Other Start: 08-31-2022 Telephone encounter Peter Munson [facility] Start: 08-26-2022 End: 08-26-2022 ambulatory Peter Rush Other [facility] Other Start: 08-26-2022 Patient encounter procedure Peter CHARLES [facility] Start: 01-11-2022 End: 01-12-[address] PETER RUSH Facility:[facility] Start: 04-06-2021 End: 04-07-[address] PETER RUSH Facility:[facility] Start: 02-20-2021 End: 02-20-[address] PETER RUSH Facility:[facility] Start: 04-04-2020 Adult health examination Peter Rush Other [facility] Other Procedures Date Procedure Procedure Detail Performing [...] Start: 09-26-2025 Diabetes Screening Diabetes Screenin g [facility] Start: 06-09-2023 Colonoscopy COLONOSCOPY [facility] Start: 06-09-2023 COLORECTAL CANCER SCREENING COLORECTAL CANCER SCREENING [facility] Start: 01-24-2023 Covid-19 Vaccine ( season) Covid-19 Vaccine ( season) [facility] Start: 01-24-2023 Influenza vaccination Influenza Vacc ine (#1) [facility] Start: 09-25-2022 End: 11-25-2022 CBC W Auto Differential panel - Blood CBC + DIFF Lab Routine Polyp of colon, unspecified part of colon, unspecified type Liver hemangioma Expected: 09/25/2022, Expires: 11/25/2022 [facility] Work Phone: Comment on above: Expected: 09/25/2022 , Expires: 11/25/2022 Start: 09-25-2022 End: 11-25-2022 Comprehensive metabolic 2000 panel - Serum or Plasma COMP METABOLIC PANEL Lab Routine Polyp of colon, unspecified part of colon, unspecified type Liver hemangioma Expected: 09/25/2022, Expires: 11/25/2022 [facility] Work Phone: Comment on above: Expected: 09/25/2022 , Expires: 11/25/2022 Start: 2022 ADVANCE DIRECTIVE DISCUSSION ADVANCE DIRECTIVE DISCUSSION [facility] Start: 2022 BONE DENSITY BONE DENSITY [facility] Start: 2022 Bone Density Screening Bone Density Screening [facility] Start: 2022 Pneumococcal Vaccine : 65+ (1 - PCV) Pneumococcal Vaccine: 65+ (1 - PCV) [facility] Start: 2022 PNEUMOCOCCAL: 65+ (1 - PCV) PNEUMOCOCCAL: 65+ (1 - PCV) [facility] Start: 05-26-2022 DEPRESSION ASSESSMENT DEPRESSION ASS ESSMENT [facility] Start: 09-29-2020 COVID-19 VACCINE (2 - Booster for Roe series) COVID-19 VACCINE (2 - Booster for Roe series) [facility] Start: 04-26-2018 DIABETES SCREEN DIABETES SCREEN [facility] Start: 2017 RSV Vaccine (1 - 1-d ose 60+ series) RSV Vaccine (1 - 1-dose 60+ series) [facility] Start: 2007 SHINGRIX VACCINE (1 of 2) SHINGRIX VACCINE (1 of 2) [facility] Start: 2002 COLOGUARD (FIT-DNA) COLOGUARD (FIT-D NA) [facility] Start: [address] COLONOGRAPHY [facility] Start: 2002 FECAL OCCULT BLOOD FECAL OCCULT BLOO D [facility] Start: 2002 Lipid 1996 panel - S fernando or Plasma Lipid Screening [facility] Start: 2002 LIPID SCREEN LIPID SCREEN [facility] Start: 2002 SIGMOIDOSCOPY SIGMOIDOSCOPY [facility] Start: 1997 Mammography [facility] Start: 1976 Urine microalbumin profile [facility] Start: 1975 HEPATITIS C SCREENING HEPATITIS C SC REENING [facility] Start: 1975 HIV SCREENING HIV SCREENING [facility] End: 09-26-2023 COLONOSCOPY DIAGNOSTIC COLONOSCOPY DIAGNOSTIC Endoscopy Routine Polyp of colon, unspecified part of colon, unspecified type Liver hemangioma 1 Occurrences starting 09/25/2022 until 09/26/2023 [facility] Work Phone: Comment on above: 1 Occurrences starti ng 09/25/2022 until 09/26/2023 End: 10-25-2023 US ABD RIGHT UPPER QUADRANT US ABD RIGHT UPPER QUADRANT Radiology Routine Polyp of colon, unspecified part of colon, unspecified type Liver hemangioma 1 Occurrences starting 09/25/2022 until 10/25/2023 [facility] Work Phone: Comment on above: 1 Occurrences starti ng 09/25/2022 until 10/25/2023 XR Knee - right 4 Views [facility] Immunizations Immunization Date Immunization Notes Care Provider Fa kya 04-09-2022 influenza, high dose seasonal, preservative-free Peter Rush Other [facility] Other 04-09-2022 influenza virus vaccine, split virus (incl. purified surface antigen) Peter Rush Other [facility] Other 04-09-2022 influenza virus vaccine, unspecified formulation Ultra 2 Work Phone: [facility] 03-24-2021 influenza virus vaccine, split virus (incl. purified surface antigen) Peter Rush Other [facility] [employer] Other 03-24-2021 influenza virus vaccine, unspecified formulation [facility] 08-04-2020 COVID-19 Vaccine Roe - Documentation Purposes Only Peter Rush Other [facility] 02-23-2017 tetanus and diphther ia toxoids, adsorbed, preservative free, for adult use (5 Lf of tetanus toxoid and 2 Lf of diphtheria toxoid) Peter Rush Other [facility] 03-15-2016 tetanus and diphther ia toxoids, adsorbed, preservative free, for adult use (5 Lf of tetanus toxoid and 2 Lf of diphtheria toxoid) Peter Rush Other [facility] Payers Date Payer Category Payer Unknown [id number] 2022 Unknown [id number] 2022 Medicare [id number] 2022 Medicare [id number] 1959 Unknown [id number] 1957 Unknown [id number] 1957 Unknown [id number] 1957 Unknown [id number] 1957 Unknown [id number] 1957 Unknown [id number] 1957 Unknown [id number] 1957 Unknown [id number] 1957 Unknown [id number] Private Health Insurance [employer] [id number] Social History Date Type Detail Facility Start: 09-02-2018 End: 09-25-2022 Sex Assigned At [facility] Start: 08-24-2013 End: 03-23-2024 Tobacco smoking status TXIS Never smoked tobacco [facility] Start: 08-24-2013 Tobacco use and exposure Smokeless tobacco non-user [facility] Start: 09-02-2018 Alcohol intake Current drinke r of alcohol (finding) [facility] Start: 08-24-2013 Alcohol Comment occ. [facility] Start: 1955 Sex Assigned At [facility] Start: 09-02-2018 End: 09-25-2022 History of Social function [facility] National Score (1-100), lower number is lower risk 67 [facility] [place] Start: 04-11-2021 Gender identity Identifies as female gender (finding) [facility] Start: 11-24-2023 Tobacco smoking stat us NHIS Ex-smoker (finding) [facility] Medical Equipment Procedure Code Equipment Code Equipment Origin al Text Equipment Identifier Dates Qet-Fj-F-Kind Implant - Crushed Cancellous 15cc [id number] Start: 07-19-2016 Comment on above: Description: ONE-OF- A-KIND IMPLANT - Crushed Cancellous 15cc. Brought into room at 0840. Handed sterily to field by Donovan Christensen RN to Abigail Hayes LINING FINISHER at 1015. Also handled by Moe Ulrich MD, and Abigail Carey MD. No preparation required. Plate Lcp Long T Stainless Steel 61mm Bone 2 Hole Variable Angle Fusion - [id number] Start: 07-19-2016 Screw Lcp 2.7mm T8 Stainless Steel 22mm Bone Variable Angle Lock Self Tap - [id number] Start: 07-19-2016 Washer Surfix 3.5mm Stainless Steel Orthopedic Lock Midfoot - [id number] Start: 07-19-2016 Functional Status Date Assessment Result Facility 03-24-2024 Functional Status N/A [facility] [place] 01-27-2024 Functional Status N/A [facility] [place] Clinical Notes 08-26-2022 to 01-27-2024 Patient InstructionsYolanda [...] Status SARS-CoV-2 (COVID-19) Ad26 vaccine 08/04/2020 Recorded [facility] Comment on above: Result Comment: Elec [...] If you do not have a responsible auto driver (family member or friend) with you [...] If you do not have a responsible auto driver (family member or friend) with you to take you home, your exam cannot be done with sedation and will be cancelled. Please bring a list of all of your current medications, including any Spvn-qpc-Nnhvghi medications with you. Medications If you take [...] exam. 2 04/2019 documented in this encounter [facility] 09-25-2022 History and physical note Hepatology [facility] consult by Dr Rush for liver [...] cc dr Rush documented in this encounter [facility] 08-31-2022 Evaluation note Encounter Date Diagnosis Assessment Notes Aug, Menopause (ICD-10 - Z78.0) [facility] Other 04-03-2023 Evaluation note* Encounter Date Diagnosis [...] and consequences of not detecting early cancer [facility] [employer] Other Evaluation + Plan note No data available for this section [facility] Evaluation note* Diagnosis Polyp of colon, unspecified part of colon, unspecified type- Primary Liver hemangioma Hemangioma of intra-abdominal structures documented in this encounter [facility] note* Diagnosis Polyp of colon, unspecified part of colon, unspecified type Liver hemangioma Hemangioma of intra-abdominal structures documented [facility] this encounter [facility]No [facility] [employer] Other Evaluation note* Diagnosis Onset Date Resolution Status Cavernous hemangioma of liver acute Knee pain, bilateral acute Menopause acute Obesity acute Screening for colon cancer a cute Medicare annual wellness visit, initial noneactive Screening mammogram for breast cancer noneactive [facility] Work Phone: History general Narrative - [...] History hysterectomy Hospitalization History c section, childbirth [facility] Other Hospital Discharge instructions No data available for this section [facility] [place] Progress note No data available for this section [facility] Reason for referral (narrative)* Outpatient Procedure (Routine) - Authorized Specialty Diagnoses / Procedures Referred By Ernst berry Referred To Contact [facility] Diagnoses Polyp of colon, unspecified part of colon, unspecified type Liver hemangioma Procedures COLONOSCOPY DIAGNOSTIC COLONOSCOPY FLX DX W/COLLJ SPEC WHEN PFRMD Yolanda Stafford MD [address] [place] [address] [facility] [email or web address] [address] Referral ID Status Reason Start Date Expiration Date Visits Requested Visits Authorized [id number] Authorized Auto-Generat ed Referral 09/25/2022 09/26/2023 1 1 * Diagnostic Procedure Only (Routine) - Authorized Specialty Diagnoses / Procedures Referred By Ernst berry Referred To Contact [facility] Diagnoses Polyp of colon, unspecified part of colon, unspecified type Liver hemangioma Procedures US ABD RIGHT UPPER QUADRANT US ABDOMINAL REAL TIME W/IMAGE LIMITED Yolanda Stafford MD [address] [address] [facility] Referral ID Status Reason Start Date Expiration Date Visits Requested Visits Authorized [id number] Authorized Auto-Generat ed Referral 09/25/2022 10/25/2023 1 1 [facility] for referral (narrative)* Diagnostic Procedure Only (Routine) - Closed Specialty Diagnoses / Procedures Referred By Ernst berry Referred To Contact [facility] Diagnoses Polyp of colon, unspecified part of colon, unspecified type Liver hemangioma Procedures US ABD RIGHT UPPER QUADRANT US ABDOMINAL REAL TIME W/IMAGE LIMITED Yolanda Stafford MD [address] [place] [address] [facility] [place] [address] Referral ID Status Reason Start Date Expiration Date V isits Requested Visits Authorized [id number] Closed Auto-Generate d Referral 09/25/2022 10/25/2023 1 1 [facility] for visit Narrative* Diagnostic Procedure Only (Routine) - Closed Specialty Diagnoses / Procedures Referred By Ernst berry Referred To Contact [facility] Diagnoses Polyp of colon, unspecified part of colon, unspecified type Liver hemangioma Procedures US ABD RIGHT UPPER QUADRANT US ABDOMINAL REAL TIME W/IMAGE LIMITED Yolanda Stafford MD [address] [place] [address] [facility] [place] [address] Referral ID Status Reason Start Date Expiration Date V isits Requested Visits Authorized [id number] Closed Auto-Generate d Referral 09/25/2022 10/25/2023 1 1 [facility] Summary Purpose Family History No Family History Records Found Relationship Condition Age at Onset Recorded Date/T rakan brother Asthma Unknown father Malignant neoplasm Unknown Family history of lung cancer Unknown mother Family history of mental disorder Unknown Advance Directives No Advanced Directives Records FoundDocuments on File Type Date Recorded 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 Advance Directive(s) 10/13/2013 10:12 PM [...] content) DATE CREATED AUTHOR 01/17/2022 [facility] DATE CREATED AUTHOR AUTHOR'S ORGANIZ ATION 09/27/2022 [facility] DATE CREATED AUTHOR AUTHOR'S ORGANIZ ATION 10/04/2022 [facility] DATE CREATED AUTHOR AUTHOR'S ORGANIZ ATION 03/26/2024 Vincent Kwong [facility] DATE CREATED AUTHOR AUTHOR'S ORGANIZ ATION 10/22/2024 [facility] REASON FOR VISIT (unrecogniz ed section and content) Reason Comments New Patient Source Comments (unrecognize d section and content) In the event this informatio n is protected by the Federal Confidentiality of Alcohol and Drug Abuse Patient Records regulations: The Federal rules restrict any use of the information to criminally investigate or prosecute any alcohol or drug abuse patient.[facility] the event this information is protected by the Federal Confidentiality of Alcohol and Drug Abuse Patient Records regulations: The Federal rules restrict any use of the information to criminally investigate or prosecute any alcohol or drug abuse patient.[facility] Care Teams (unrecognized sec tion and content) Internet Ecommerce Specialist Relationship Specialty Start Date End Date Peter Rush DO PCP - General Internal Medicine 09/11/12 Internet Ecommerce Specialist Relationship Specialty Start Date End Date Peter Rush DO PCP - General Internal Medicine 09/11/12 Team Status: Active Member Role Status Dates Peter Rush DO Primary Care Provider Active Team Status: Inactive Member Role Status Dates Peter Rush , DO Primary Care Provide r, Attending Provider [...] BE BASED ON THE PRIMARY CLINICAL RECORDS. [facility] [employer] provides no warranty or guarantee of the accuracy or completeness of information in this document.
[2024-11-01 09:28] VITALS: BP 135/85; PULSE 86; TEMP 36.6; O2SAT 99
[2024-11-01 09:58] VITALS: PULSE 90; O2SAT 97
[2024-11-01 09:59] VITALS: BP 167/70
[2024-11-01 10:00] VITALS: BP 151/62; PULSE 89; O2SAT 98
[2024-11-01] MEDS: BUPIVACAINE HCL 0.25% PF 25 MG/10 ML VIAL 2 ML INJ (10:10)
[2024-11-01] MEDS: METHYLPREDNISOLONE ACETATE 40 MG/ML VIAL INJ (10:11)
[2024-11-01] MEDS: LIDOCAINE HCL 2% 400 MG/20 ML MDV 15 ML INJ (10:11)
--- NOTE | 2024-11-01 10:15 | W.PM.PROCNOT ---
Date of procedure: 11/01/24 Pre-op diagnosis: Pain due to left knee osteoarthritis Post-op diagnosis: same as pre-op Procedure: Procedure: Left genicular nerve radiofrequency ablation Medications: Bupivacaine 0.25% 4cc, depomedrol 40mg, lidocaine 2% 10cc The patient was taken to the procedures suite and positioned in the supine position. I explained the details of the procedure to the patient including the risks, benefits and alternatives. We had an informed discussion and the patient verbalized understanding and signed the consent form. All questions were answered appropriately.? ? A 'time out' procedure was performed. The patient was identified, the chart was reviewed, and all allergies were confirmed. Laterality was conducted and marked. The left knee was marked with a sterile marking pen, prepped with Chloraprep, and sterilely draped.? Under fluoroscopic guidance, branches of the genicular nerves were localized.? First the superior medial genicular nerve was localized where the femoral shaft meets the medial epicondyle.? Skin was anesthetized with 1% lidocaine (only the superficial areas far from osseous contact).? The appropriate level of insertion was identified by placing a hemostat over the knee and obtaining an AP view. An 18-gauge 10 mm active tip 3.5 in needle was advanced in a coaxial manner in the lateral view at 1/2 the depth of the femur which was identified by placing forceps over the skin in the lateral view.? This was repeated on the superior lateral genicular nerve where the femoral shaft meets the lateral epicondyle and the inferior medial genicular nerve where the medial tibal shaft meets the tibial epicondyle (needle was advanced to half the depth of the tibia).? Needle placement was confirmed with a lateral view in all sites, after negative aspiration, 1cc of 2% lidocaine was injected at each of the three sites. ? Sensory testing was completed at 0.5 V at each level and motor testing was negative at 1.5 V for all 3 levels. Each of the sites were lesioned for 80 degrees at 80 seconds, with impedance < 500. The probes were subsequently removed and the sites of insertion were bandaged. The patient was taken to the postoperative area and discharged in good condition. Anesthesia: Local Surgeon: Felisa Ruiz Pathology: none sent Condition: stable Disposition: no change
== END 2024-11-01 10:18 | disposition home or self-care (01) ==
LOC: SURGOUT 09:04
PROVIDERS: PCP Internal Medicine; Visit Provider Anesthesiology
DX: M25.562 Pain in left knee (principal); M17.12 Unilateral primary osteoarthritis, left knee
CPT/HCPCS: 64624; J0665; J1010

== ENCOUNTER 2024-11-15 07:27 | Day surgery (SDC) | payer MEDICARE, OTHER, SELFPAY ==
--- OUTSIDE RECORDS SUMMARY | 2024-11-15 07:30 | XMS_ITS | CCD ---
Author Organization [facility] Care Team Providers Care Desktop Support Engineer Name Role Phone VICTOR MANUEL, DR COBIAN [...] Care Unavailable PETER RUSH Primary Care Physician [phone] Cristian CINTRON Attending Unavailable BALL, PETER Referring Unavailable NILLCristian Attending Unavailable NILL, Cristian Hanson Attending Unavailable Joseph WILSON, Felisa Gauthier Attending Unavailable Joseph WILSON, Felisa Gauthier Attending Unavailable Allergies Allergy Classification Reported Allergen(s) Allergy Type Date of Onset Reaction(s) Facility (4 sources) Morphine; Translations: [MORPHINE] Drug Allergy 3 [facility] Repository (7 sources) Morphine; Translations: [morphine] Drug Allergy 3 Other: See Comments, Patient reported problems (finding) [facility] (3 sources) Latex; Translations: [LATEX] Drug Allergy 3 Rash [facility] (1 source) patient allergy list reviewed by nurse or physicia Propensity to adverse reactions 8 Comment:Done I Just Shared Other Medications Current Medications Medication Drug Class(es) [...] tw o times a week. estrogens, conjugated (senior care) 0.625 mg/ml vaginal cream (3 sources) Estrogen [...] Date: 03/18/24 Status: Ordered polyethylene glycol 3350 260636 mg / potassium chloride 2970 mg / sodium bicarbonate 6740 mg / sodium chloride 5860 mg / sodium sulfate 52989 mg powder for oral solution (1 source) [...] choosing us for your care. Ike Kaur [facility] General Surgery Office/Clini c Noteon [...] SARS-CoV-2 (COVID-19) Ad26 vaccine 08/04/2020 Recorded Normal [facility] Comment on above: Result Comment: Elec tronically Signed By: ABDULAZIZ WILSON, Cristian Doshi\Date and Time Signed: 03/24/24 16:23 EDT Reminderson 03-04-2024 Reminders Reminders From: Patti Douglas LPN To: GSN - Clinical; Sent: 03/04/2024 14:13:04 EDT Show up: 02/01/2034 07:00:00 EDT Subject: colonoscopy recall Due Date/Time: 03/03/2034 07:00:00 EDT Reminder/Recall Patient due for screening colonoscopy 03/03/2034. Normal [facility] CBC W Auto Differential pane l (Bld)on 09-26-2022 Basophils (Bld) [#/Vol] 0.04 10*3/uL Normal <0.11 [facility] Comment on above: Order Comment: Speci men Type: BLOOD SPECIMEN Ordering Facility: [facility] Address: [address] [address] Performed By: #### 5 7021-8 #### [facility] CLIA [id number] [address] [place] [address] [place] Basophils/100 WBC (Bld) 0.7 % Normal [facility] Comment on above: Order Comment: Speci men Type: BLOOD SPECIMEN Ordering Facility: [facility] Address: [address] [address] Performed By: #### 5 7021-8 #### [facility] CLIA [id number] [address] [place] [address] [place] Differential cell count method Nom (Bld) Auto Normal [facility] Comment on above: Order Comment: Speci men Type: BLOOD SPECIMEN Ordering Facility: [facility] Address: [address] [address] Performed By: #### 5 7021-8 #### [facility] CLIA [id number] [address] [place] [address] [place] Eosinophils (Bld) [#/Vol] 0.04 10*3/uL Normal <0.46 [facility] Comment on above: Order Comment: Speci men Type: BLOOD SPECIMEN Ordering Facility: [facility] Address: [address] [address] Performed By: #### 5 7021-8 #### [facility] IA [id number] [address] [place] [address] [place] Eosinophils/100 WBC (Bld) 0.7 % Normal [facility] Comment on above: Order Comment: Speci men Type: BLOOD SPECIMEN Ordering Facility: [facility] Address: [address] [place] [address] Performed By: #### 5 7021-8 #### [facility] IA [id number] [address] [place] [address] [place] Erythrocyte distribution width (RBC) [Ratio] 12.2 % Normal 11.5-15.0 [facility] Comment on above: Order Comment: Speci men Type: BLOOD SPECIMEN Ordering Facility: [facility] Address: [address] [place] [address] Performed By: #### 5 7021-8 #### [facility] IA [id number] [address] [place] [address] [place] Hematocrit (Bld) [Volume fraction] 43.6 % Normal 36.0-46.0 [facility] Comment on above: Order Comment: Speci men Type: BLOOD SPECIMEN Ordering Facility: [facility] Address: [address] [address] Performed By: #### 5 7021-8 #### [facility] IA [id number] [address] [place] [address] [place] Hemoglobin (Bld) [Mass/Vol] 14.4 g/dL Normal 11.5-15.5 [facility] Comment on above: Order Comment: Speci men Type: BLOOD SPECIMEN Ordering Facility: [facility] Address: [address] Performed By: #### 5 7021-8 #### [facility] IA [id number] [address] [place] [address] [place] Immature granulocytes (Bld) [#/Vol] 10*3/uL Normal <0.10 [facility] Comment on above: Order Comment: Speci men Type: BLOOD SPECIMEN Ordering Facility: [facility] Address: [address] [address] Performed By: #### 5 7021-8 #### [facility] IA [id number] [address] [place] Immature granulocytes/100 WBC (Bld) 0.3 % Normal [facility] Comment on above: Order Comment: Speci men Type: BLOOD SPECIMEN Ordering Facility: [facility] Address: [address] [address] Performed By: #### 5 7021-8 #### [facility] IA [id number] [address] [place] [address] [place] Lymphocytes (Bld) [#/Vol] 1.48 10*3/uL Normal 1.00-4.00 [facility] Comment on above: Order Comment: Speci men Type: BLOOD SPECIMEN Ordering Facility: [facility] Address: [address] [address] Performed By: #### 5 7021-8 #### [facility] IA [id number] [address] [place] [address] [place] Lymphocytes/100 WBC (Bld) 25.8 % Normal [facility] Comment on above: Order Comment: Speci men Type: BLOOD SPECIMEN Ordering Facility: [facility] Address: [address] Performed By: #### 5 7021-8 #### [facility] IA [id number] [address] [place] [address] [place] MCH (RBC) [Entitic mass] 30.5 pg Normal 26.0-34.0 [facility] Comment on above: Order Comment: Speci men Type: BLOOD SPECIMEN Ordering Facility: [facility] Address: [address] [address] Performed By: #### 5 7021-8 #### [facility] IA [id number] [address] [place] [address] [place] MCHC (RBC) [Mass/Vol] 33.0 g/dL Normal 30.5-36.0 [facility] Comment on above: Order Comment: Speci men Type: BLOOD SPECIMEN Ordering Facility: [facility] Address: [address] [address] Performed By: #### 5 7021-8 #### [facility] IA [id number] [address] [place] [address] [place] MCV (RBC) [Entitic vol] 92.4 fL Normal 80.0-100.0 [facility] Comment on above: Order Comment: Speci men Type: BLOOD SPECIMEN Ordering Facility: [facility] Address: [address] [address] Performed By: #### 5 7021-8 #### [facility] IA [id number] [address] [place] [address] [place] Monocytes (Bld) [#/Vol] 0.55 10*3/uL Normal <0.87 [facility] Comment on above: Order Comment: Speci men Type: BLOOD SPECIMEN Ordering Facility: [facility] Address: [address] [address] Performed By: #### 5 7021-8 #### [facility] IA [id number] [address] [place] Monocytes/100 WBC (Bld) 9.6 % Normal [facility] Comment on above: Order Comment: Speci men Type: BLOOD SPECIMEN Ordering Facility: [facility] Address: [address] [address] Performed By: #### 5 7021-8 #### [facility] CLIA [id number] [address] [place] [address] [place] Neutrophils (Bld) [#/Vol] 3.61 10*3/uL Normal 1.45-7.50 [facility] Comment on above: Order Comment: Speci men Type: BLOOD SPECIMEN Ordering Facility: [facility] Address: [address] [address] Performed By: #### 5 7021-8 #### [facility] CLIA [id number] [address] [place] [address] [place] Neutrophils/100 WBC (Bld) 62.9 % Normal [facility] Comment on above: Order Comment: Speci men Type: BLOOD SPECIMEN Ordering Facility: [facility] Address: [address] [address] Performed By: #### 5 7021-8 #### [facility] CLIA [id number] [address] [place] [address] [place] Nucleated RBC (Bld) [#/Vol] 10*3/uL Normal <0.01 [facility] Comment on above: Order Comment: Speci men Type: BLOOD SPECIMEN Ordering Facility: [facility] Address: [address] [address] Performed By: #### 5 7021-8 #### [facility] CLIA [id number] [address] [place] [address] [place] Nucleated RBC/100 WBC (Bld) [Ratio] 0.0 /100 WBC Normal [facility] Comment on above: Order Comment: Speci men Type: BLOOD SPECIMEN Ordering Facility: [facility] Address: [address] Performed By: #### 5 7021-8 #### [facility] CLIA [id number] [address] [place] [address] [place] Platelet mean volume (Bld) [Entitic vol] 9.2 fL Normal 9.0-12.7 [facility] Comment on above: Order Comment: Speci men Type: BLOOD SPECIMEN Ordering Facility: [facility] Address: [address] Performed By: #### 5 7021-8 #### [facility] CLIA [id number] [address] [place] [address] [place] Platelets (Bld) [#/Vol] 267 10*3/uL Normal 150-400 [facility] Comment on above: Order Comment: Speci men Type: BLOOD SPECIMEN Ordering Facility: [facility] Address: [address] Performed By: #### 5 7021-8 #### [facility] IA [id number] [address] [place] [address] [place] RBC (Bld) [#/Vol] 4.72 10*6/uL Normal 3.90-5.20 [facility] Comment on above: Order Comment: Speci men Type: BLOOD SPECIMEN Ordering Facility: [facility] Address: [address] [place] [address] Performed By: #### 5 7021-8 #### [facility] IA [id number] [address] [place] WBC (Bld) [#/Vol] 5.74 10*3/uL Normal 3.70-11.00 [facility] Comment on above: Order Comment: Speci men Type: BLOOD SPECIMEN Ordering Facility: [facility] Address: [address] [place], [place] [address] Performed By: #### 5 7021-8 #### [facility] IA [id number] [address] [facility] Comprehensive metabolic 2000 panelon 09-26-2022 Albumin [Mass/Vol] 4.6 g/dL Normal 3.9-4.9 [facility] Comment on above: Order Comment: Speci men Type: BLOOD SPECIMEN Ordering Facility: [facility] Address: [address] [place], [place] [address] Performed By: #### 2 4323-8 #### [facility] IA [id number] [address] [place] [address] [place] ALP [Catalytic activity/Vol] 89 U/L Normal 34-123 [facility] Comment on above: Order Comment: Speci men Type: BLOOD SPECIMEN Ordering Facility: [facility] Address: [address] [address] Performed By: #### 2 4323-8 #### [facility] CLIA [id number] [address] [place] [address] [place] ALT [Catalytic activity/Vol] 28 U/L Normal 7-38 [facility] Comment on above: Order Comment: Speci men Type: BLOOD SPECIMEN Ordering Facility: [facility] Address: [address] [address] Performed By: #### 2 4323-8 #### [facility] CLIA [id number] [place] [address] [place] Anion gap [Moles/Vol] 9 mmol/L Normal 9-18 [facility] Comment on above: Order Comment: Speci men Type: BLOOD SPECIMEN Ordering Facility: [facility] Address: [address] [address] Performed By: #### 2 4323-8 #### [facility] CLIA [id number] [address] [place] [address] [place] AST [Catalytic activity/Vol] 21 U/L Normal 13-35 [facility] Comment on above: Order Comment: Speci men Type: BLOOD SPECIMEN Ordering Facility: [facility] Address: [address] [address] Performed By: #### 2 4323-8 #### [facility] CLIA [id number] [address] [place] [address] [place] Bilirubin [Mass/Vol] 0.5 mg/dL Normal 0.2-1.3 [facility] Comment on above: Order Comment: Speci men Type: BLOOD SPECIMEN Ordering Facility: [facility] Address: [address] [address] Performed By: #### 2 4323-8 #### [facility] CLIA [id number] [address] [place] [address] [place] Calcium [Mass/Vol] 9.7 mg/dL Normal 8.5-10.2 [facility] Comment on above: Order Comment: Speci men Type: BLOOD SPECIMEN Ordering Facility: [facility] Address: [address] [address] Performed By: #### 2 4323-8 #### [facility] CLIA [id number] [address] [place] [address] [place] Chloride [Moles/Vol] 104 mmol/L Normal 97-105 [facility] Comment on above: Order Comment: Speci men Type: BLOOD SPECIMEN Ordering Facility: [facility] Address: [address] [address] Performed By: #### 2 4323-8 #### [facility] CLIA [id number] [address] [place] [address] [place] CO2 [Moles/Vol] 29 mmol/L Normal 22-30 [facility] Comment on above: Order Comment: Speci men Type: BLOOD SPECIMEN Ordering Facility: [facility] Address: [address] [address] Performed By: #### 2 4323-8 #### [facility] CLIA [id number] [address] [place] [address] [place] Creatinine [Mass/Vol] 0.68 mg/dL Normal 0.58-0.96 [facility] Comment on above: Order Comment: Speci men Type: BLOOD SPECIMEN Ordering Facility: [facility] Address: [address] [place], [place] [address] Performed By: #### 2 4323-8 #### [facility] CLIA [id number] [address] [place] [address] [place] ESTIMATED GLOMERULAR FILTRATION RATE 97 mL/min/1.73m??? Normal >=60 [facility] Comment on above: Order Comment: Speci men Type: BLOOD SPECIMEN Ordering Facility: [facility] Address: [address] [place] [address] Result Comment: Barbara mated Glomerular Filtration Rate [...] GFR. Performed By: #### 2 4323-8 #### [facility] CLIA [id number] [address] [place] [address] [place] Glucose [Mass/Vol] 98 mg/dL Normal 74-99 [facility] Comment on above: Order Comment: Speci men Type: BLOOD SPECIMEN Ordering Facility: [facility] Address: [address] [id number] Result Comment: The [place] Diabetes Association (ADA) provides guidance for cutoff [...] Standards of Medical Care in Diabetes 2016, [place] [employer]. Diabetes Care. 2016.39(Suppl 1). Performed By: #### 2 4323-8 #### [facility] CLIA [id number] [address] [place] [address] [place] Potassium [Moles/Vol] 4.6 mmol/L Normal 3.7-5.1 [facility] Comment on above: Order Comment: Speci men Type: BLOOD SPECIMEN Ordering Facility: [facility] Address: [address] [place] [address] Performed By: #### 2 4323-8 #### [facility] CLIA [id number] [address] [place] [address] [place] Protein [Mass/Vol] 7.4 g/dL Normal 6.3-8.0 [facility] Comment on above: Order Comment: Speci men Type: BLOOD SPECIMEN Ordering Facility: [facility] Address: [address] [address] Performed By: #### 2 4323-8 #### [facility] CLIA [id number] [address] [place] [address] [place] Sodium [Moles/Vol] 142 mmol/L Normal 136-144 [facility] Comment on above: Order Comment: Speci men Type: BLOOD SPECIMEN Ordering Facility: [facility] Address: [address] [address] Performed By: #### 2 4323-8 #### [facility] CLIA [id number] [address] [place] [address] [place] Urea nitrogen [Mass/Vol] 17 mg/dL Normal 7-21 [facility] Comment on above: Order Comment: Speci men Type: BLOOD SPECIMEN Ordering Facility: [facility] Address: [address] [address] Performed By: #### 2 4323-8 #### [facility] CLIA [id number] [address] [place] [address] [place] No Panel Informationon 09-26 [facility] US ABD RIGHT UPPER QUADRANTo [...] and could represent the previously described hemangiomas. Senior Clinical Data Coordinator: DARRELL Transcribe Date/Time: Oct 03 2022 6:03A Dictated by : NAS DENSON MD This examination was interpreted and the report reviewed and electronically signed by: NAS DENSON MD on Oct 03 2022 6:08AM EST [id number] [facility] US ABD SPLEEN -NBon 09-27-19 US ABD SPLEEN -NB * * *Final Report* * * DATE OF EXAM: Sep 26 2022 1:18PM [facility] 1232 - US ABD SPLEEN -NB / [...] and could represent the previously described hemangiomas. Senior Clinical Data Coordinator: [facility] Transcribe Date/Time: Oct 03 2022 6:03A Dictated by : NAS DENSON MD This examination was interpreted and the report reviewed and electronically signed by: NAS DENSON MD on Oct 03 2022 6:08AM EST [id number] [facility] CNOVon 09-25-2022 CNOV Office Visit (GASTAV ) BRIANNABETTINA ([id number]) 1955 F Date Time Provider Department 09/25/22 [...] If you do not have a responsible driver retraining instructor (family member or friend) with you to [...] Imodium, Ka (more content not included)... Normal [facility] HISTORY PHYSICALon HISTORY PHYSICAL HNO ID: [id number] Author: Yolanda Gutierrez MD Service: ? Author Type: Physician Type: HANDP Filed: 09/25/2022 2:21 PM Note Text: Hepatology [facility] Florecita HPI consult by Dr Rush for [...] Yolanda Walters MD cc dr Rush Normal [facility] CULTURE URINEon 01-11-2022 CULTURE URINE Culture Observations : MODERATE GROWTH OF MIXED GENITAL JESUS. NO POTENTIAL PATHOGENS SEEN. Normal [facility] Comment on above: Performed By: #### U RCX #### [facility] [address] [place], [place] [address] Dr. Na Gonzales UA RANDOM W/MICROSCOPICon BACTERIA NONE SEEN Normal NONE SEEN [facility] Comment on above: Performed By: #### U AMIC #### [facility] [address] [place], [place] [address] Dr. Na Gonzales Bilirubin Ql (U) Negative Normal NEGATIVE [facility] Comment on above: Performed By: #### U AMIC #### [facility] [address] [address] [address] Na Gonzales CAST NONE SEEN Normal NONE SEEN [facility] Comment on above: Performed By: #### U AMIC #### [facility] [address] [address] [address] Na Gonzales Clarity (U) CLEAR Normal CLEAR [facility] Comment on above: Performed By: #### U AMIC #### [facility] [address] [address] [address] Na Gonzales Color (U) LT. YELLOW Normal YELLOW [facility] Comment on above: Performed By: #### U AMIC #### [facility] [address] [place] [address] Dr. Na Gonzales Crystals LM Nom (Urine sed) NONE SEEN Normal NONE SEEN [facility] Comment on above: Performed By: #### U AMIC #### [facility] [address] [address] [address] Na Gonzales Epithelial cells LM Ql (Urine sed) NONE SEEN Normal NONE SEEN /RARE [facility] Comment on above: Performed By: #### U AMIC #### [facility] [address] [place] [address] Dr. Na Gonzales Glucose Ql (U) Negative Normal NEGATIVE [facility] Comment on above: Performed By: #### U AMIC #### [facility] [address] [address] [address] Na Gonzales Hemoglobin Ql (U) Negative Normal NEGATIVE [facility] Comment on above: Performed By: #### U AMIC #### [facility] [address] [address] [address] Na Gonzales Ketones Ql (U) Negative Normal NEGATIVE [facility] Comment on above: Performed By: #### U AMIC #### [facility] [address] [place] [address] Dr. Na Gonzales LEUKOCYTES SMALL Abnormal NEGATIVE [facility] Comment on above: Performed By: #### U AMIC #### [facility] [address] [place] [address] Dr. Na Gonzales MUCOUS NONE SEEN Normal NONE SEEN [facility] Comment on above: Performed By: #### U AMIC #### [facility] [address] [address] [address] Na Gonzales Nitrite Ql (U) Negative Normal NEGATIVE [facility] Comment on above: Performed By: #### U AMIC #### [facility] [address] [address] [address] Na Gonzales pH (U) 6.0 [pH] Normal 5-9 [facility] Comment on above: Performed By: #### U AMIC #### [facility] [address] [address] [address] Na Gonzales RBC NONE SEEN Abnormal 0-2 [facility] Comment on above: Performed By: #### U AMIC #### [facility] [address] [place] [address] Dr. Na Gonzales SPEC GRAVITY 1.005 Normal 1.005-<=1.02 5 [facility] Comment on above: Performed By: #### U AMIC #### [facility] [address] [place] [address] Dr. Na Gonzales UA PROTEIN Negative Normal NEGATIVE/ TRACE [facility] Comment on above: Performed By: #### U AMIC #### [facility] [address] [place] [address] Dr. Na Gonzales Urobilinogen Qn (U) 0.2 {Irene'U}/dL Normal 0.2 - 1.0 [facility] Comment on above: Performed By: #### U AMIC #### [facility] [address] [place] [address] Dr. Na Gonzales WBC 0-2 Abnormal NONE SEEN [facility] Comment on above: Performed By: #### U AMIC #### [facility] [address] [place] [address] ABD/PELVIS WO CONon [...] by: DEMETRIS PATEL Date: 2021-04-06 18:26 Normal [facility] CULTURE STOOLon 02-22-2021 CULTURE STOOL Culture Observations : SALMONELLA CALD TO [employer] EFL[employer] LPN@1225/02/21/21/RK Culture Observations: SAL[facility]ONELLA CALD [facility] CENTER@1230/02/21/21/RK Culture Observations: SENDING ISOLATE TO [facility] Isolate 1 Salmonella enterica ssp enterica Heavy growth of ORGANISM 1 Salmonella enterica ssp enterica ANTIBIOTIC M.I.C RX STATUS Ampicillin <=2 S F Ceftazidime <=1 S F Ceftriaxone <=1 S F Ciprofloxacin <=0.25 S F Levofloxacin <=0.12 S F Trimethoprim/Sulfamethoxazole <=20 S F Normal [facility] Comment on above: Performed By: #### S TOOLCX #### [facility] [address] [place] [address] Dr. Na Gonzales CLOSTRIDIUM DIFFICILE PCRon 02-21-2021 C difficile Toxin Gene SHADI Negative Normal Negative [facility] Comment on above: Performed By: #### C TERRANCE #### [facility] [address] [place] [address] Dr. Na Gonzales Vital Signs Date Time Vital Sign Value Performing Clinician Facility 01-27-2024 15:15-0400 Blood Pressure Location Cristian NILL [facility] 01-27-2024 15:15-0400 Diastolic blood pressure 82 mm[Hg] Cristian NILL [facility] 01-27-2024 15:15-0400 Heart rate 76 /min Cristian NILL [facility] 01-27-2024 15:15-0400 Respiratory rate 16 /min Cristian NILL [facility] 01-27-2024 15:15-0400 Systolic blood pressure 120 mm[Hg] Cristian NILL [facility] 12-23-2023 14:36-0400 Body height 167.64 cm [facility] 12-23-2023 14:36-0400 Body mass index (BMI) [Ratio] 35.2 kg/m2 [facility] 12-23-2023 14:36-0400 Body weight 98.93 kg [facility] 12-23-2023 14:36-0400 Diastolic blood pressure 86 mm[Hg] [facility] 12-23-2023 14:36-0400 Heart rate 98 /min [facility] 12-23-2023 14:36-0400 Respiratory rate 12 /min [facility] 12-23-2023 14:36-0400 Systolic blood pressure 141 mm[Hg] [facility] 09-25-2022 13:20-0400 Body height 167.6 cm Yolanda Gutierrez MD Work Phone: [facility] 09-25-2022 13:20-0400 Body weight 100.7 kg Yolanda Gutierrez MD Work Phone: [facility] 08-26-2022 14:30-0400 Body height 166.37 cm Peter Ball Other [facility] 08-26-2022 14:30-0400 Body mass index (BMI) [Ratio] 36.44 kg/m2 Peter Ball Other [facility] 08-26-2022 14:30-0400 Body weight 100.88 kg Peter Ball Other [facility] Other 08-26-2022 14:30-0400 Diastolic blood pressure 78 mm[Hg] Peter Ball Other [facility] 08-26-2022 14:30-0400 Respiratory rate 12 /min Peter Ball Other [facility] Other 08-26-2022 14:30-0400 Systolic blood pressure 122 mm[Hg] Peter Rezzie Other [facility] Other Encounters Encounter Date Encounter Type Care Provider Facility Start: 10-11-2024 End: 10-11-2024 ambulatory Felisa Ruiz MD Facility: [facility] Start: 07-12-2024 End: 07-12-2024 ambulatory Felisa Ruiz MD Facility: [facility] Start: 03-24-2024 End: 03-24-2024 ambulatory Cristian CINTRON Facility: [facility] Start: 03-24-2024 End: 03-24-2024 Patient encounter procedure Cristian CINTRON [facility] [address] Start: 03-03-2024 End: 03-03-2024 ambulatory Cristian CINTRON Facility:CD:[id number] Start: 01-27-2024 End: 01-27-2024 ambulatory PETER VICTOR MANUEL Facility:[facility] Start: 01-27-2024 End: 01-27-2024 Patient encounter procedure Cristian CINTRON [facility] Start: 12-26-2023 ambulatory Cristian JARAMILLOAnika Facility:[facility] Start: 12-23-2023 End: 12-23-2023 ambulatory [facility] Work Phone: Start: 12-23-2023 End: 12-23-2023 Patient encounter procedure [facility] Physician [facility] Victor Manuel [facility] Work Phone: Start: 07-02-2023 End: 07-02-2023 ambulatory Peter Rush Other [facility] Other Start: 07-02-2023 Telephone encounter Peter Munson [facility] Start: 09-26-2022 End: 09-27-2022 ambulatory YOLANDA GUTIERREZ Facility:[facility] Start: 09-26-2022 End: 09-26-2022 Subsequent hospital visit by physician Brittany [facility] 2 Work Phone: [facility] Radiology Ultrasound Comment on above: Polyp of colon, unsp ecified part of colon, unspecified type [K63.5] Start: 09-25-2022 End: 09-25-2022 ambulatory YOLANDA GUTIERREZ Facility:[facility] Start: 09-25-2022 End: 09-25-2022 Patient encounter procedure Yolanda Gutierrez MD Work Phone: Gastroenterology Comment on above: Polyp of colon, unsp ecified part of colon, unspecified type (Primary Dx); Liver hemangioma Start: 08-31-2022 End: 08-31-2022 ambulatory Peter Rush Other [facility] Other Start: 08-31-2022 Telephone encounter Peter Munson [facility] Start: 08-26-2022 End: 08-26-2022 ambulatory Peter Rush Other [facility] Other Start: 08-26-2022 Patient encounter procedure Peter CHARLES [facility] Start: 01-11-2022 End: 01-12-[address] PETER RUSH Facility:[facility] Start: 04-06-2021 End: 04-07-[address] PETER RUSH Facility:[facility] Start: 02-20-2021 End: 02-20-[address] PETER RUSH Facility:[facility] Start: 04-04-2020 Adult health examination Peter Rush Other [facility] Other Procedures Date Procedure Procedure Detail Performing [...] Start: 09-26-2025 Diabetes Screening Diabetes Screenin g [facility] Start: 06-09-2023 Colonoscopy COLONOSCOPY [facility] Start: 06-09-2023 COLORECTAL CANCER SCREENING COLORECTAL CANCER SCREENING [facility] Start: 01-24-2023 Covid-19 Vaccine ( season) Covid-19 Vaccine ( season) [facility] Start: 01-24-2023 Influenza vaccination Influenza Vacc ine (#1) [facility] Start: 09-25-2022 End: 11-25-2022 CBC W Auto Differential panel - Blood CBC + DIFF Lab Routine Polyp of colon, unspecified part of colon, unspecified type Liver hemangioma Expected: 09/25/2022, Expires: 11/25/2022 [facility] Work Phone: Comment on above: Expected: 09/25/2022 , Expires: 11/25/2022 Start: 09-25-2022 End: 11-25-2022 Comprehensive metabolic 2000 panel - Serum or Plasma COMP METABOLIC PANEL Lab Routine Polyp of colon, unspecified part of colon, unspecified type Liver hemangioma Expected: 09/25/2022, Expires: 11/25/2022 [facility] Work Phone: Comment on above: Expected: 09/25/2022 , Expires: 11/25/2022 Start: 2022 ADVANCE DIRECTIVE DISCUSSION ADVANCE DIRECTIVE DISCUSSION [facility] Start: 2022 BONE DENSITY BONE DENSITY [facility] Start: 2022 Bone Density Screening Bone Density Screening [facility] Start: 2022 Pneumococcal Vaccine : 65+ (1 - PCV) Pneumococcal Vaccine: 65+ (1 - PCV) [facility] Start: 2022 PNEUMOCOCCAL: 65+ (1 - PCV) PNEUMOCOCCAL: 65+ (1 - PCV) [facility] Start: 05-26-2022 DEPRESSION ASSESSMENT DEPRESSION ASS ESSMENT [facility] Start: 09-29-2020 COVID-19 VACCINE (2 - Booster for Roe series) COVID-19 VACCINE (2 - Booster for Roe series) [facility] Start: 04-26-2018 DIABETES SCREEN DIABETES SCREEN [facility] Start: 2017 RSV Vaccine (1 - 1-d ose 60+ series) RSV Vaccine (1 - 1-dose 60+ series) [facility] Start: 2007 SHINGRIX VACCINE (1 of 2) SHINGRIX VACCINE (1 of 2) [facility] Start: 2002 COLOGUARD (FIT-DNA) COLOGUARD (FIT-D NA) [facility] Start: [address] COLONOGRAPHY [facility] Start: 2002 FECAL OCCULT BLOOD FECAL OCCULT BLOO D [facility] Start: 2002 Lipid 1996 panel - S fernando or Plasma Lipid Screening [facility] Start: 2002 LIPID SCREEN LIPID SCREEN [facility] Start: 2002 SIGMOIDOSCOPY SIGMOIDOSCOPY [facility] Start: 1997 Mammography [facility] Start: 1976 Urine microalbumin profile [facility] Start: 1975 HEPATITIS C SCREENING HEPATITIS C SC REENING [facility] Start: 1975 HIV SCREENING HIV SCREENING [facility] End: 09-26-2023 COLONOSCOPY DIAGNOSTIC COLONOSCOPY DIAGNOSTIC Endoscopy Routine Polyp of colon, unspecified part of colon, unspecified type Liver hemangioma 1 Occurrences starting 09/25/2022 until 09/26/2023 [facility] Work Phone: Comment on above: 1 Occurrences starti ng 09/25/2022 until 09/26/2023 End: 10-25-2023 US ABD RIGHT UPPER QUADRANT US ABD RIGHT UPPER QUADRANT Radiology Routine Polyp of colon, unspecified part of colon, unspecified type Liver hemangioma 1 Occurrences starting 09/25/2022 until 10/25/2023 [facility] Work Phone: Comment on above: 1 Occurrences starti ng 09/25/2022 until 10/25/2023 XR Knee - right 4 Views [facility] Immunizations Immunization Date Immunization Notes Care Provider Fa kya 04-09-2022 influenza, high dose seasonal, preservative-free Peter Rush Other [facility] Other 04-09-2022 influenza virus vaccine, split virus (incl. purified surface antigen) Peter Rush Other [facility] Other 04-09-2022 influenza virus vaccine, unspecified formulation Ultra 2 Work Phone: [facility] 03-24-2021 influenza virus vaccine, split virus (incl. purified surface antigen) Peter Rush Other [facility] Other 03-24-2021 influenza virus vaccine, unspecified formulation [facility] 08-04-2020 COVID-19 Vaccine Roe - Documentation Purposes Only Peter Rush Other [facility] 02-23-2017 tetanus and diphther ia toxoids, adsorbed, preservative free, for adult use (5 Lf of tetanus toxoid and 2 Lf of diphtheria toxoid) Peter Rush Other [facility] 03-15-2016 tetanus and diphther ia toxoids, adsorbed, preservative free, for adult use (5 Lf of tetanus toxoid and 2 Lf of diphtheria toxoid) Peter Rush Other [facility] Payers Date Payer Category Payer Unknown [id number] 2022 Unknown [id number] 2022 Medicare [id number] 2022 Medicare [id number] 1959 Unknown [id number] 1955 Unknown [id number] 1955 Unknown [id number] 1957 Unknown [id number] 1955 Unknown [id number] 1955 Unknown [id number] 1957 Unknown [id number] 1955 Unknown [id number] 1955 Unknown [id number] Private Health Insurance [employer] [id number] Social History Date Type Detail Facility Start: 09-02-2018 End: 09-25-2022 Sex Assigned At [facility] Start: 08-24-2013 End: 03-23-2024 Tobacco smoking status WVIS Never smoked tobacco [facility] Start: 08-24-2013 Tobacco use and exposure Smokeless tobacco non-user [facility] Start: 09-02-2018 Alcohol intake Current drinke r of alcohol (finding) [facility] Start: 08-24-2013 Alcohol Comment occ. [facility] Start: 1955 Sex Assigned At Female [facility] Start: 09-02-2018 End: 09-25-2022 History of Social function [facility] National Score (1-100), lower number is lower risk 67 [facility] [address] Start: 04-11-2021 Gender identity Identifies as female gender (finding) [facility] Start: 11-24-2023 Tobacco smoking stat us NHIS Ex-smoker (finding) [facility] Medical Equipment Procedure Code Equipment Code Equipment Origin al Text Equipment Identifier Dates [id number] Implant - Crushed Cancellous 15cc [id number] Start: 07-19-2016 Comment on above: Description: ONE-OF- A-KIND IMPLANT - Crushed Cancellous 15cc. Brought into room at 0840. Handed sterily to field by Donovan Christensen RN to Abigail Hayes MANIPULATOR OPERATOR at 1015. Also handled by Moe Ulrich MD, and Abigail Carey MD. No preparation required. Plate Lcp Long T Stainless Steel 61mm Bone 2 Hole Variable Angle Fusion - [id number] Start: 07-19-2016 Screw Lcp 2.7mm T8 Stainless Steel 22mm Bone Variable Angle Lock Self Tap - [id number] Start: 07-19-2016 Washer Surfix 3.5mm Stainless Steel Orthopedic Lock Midfoot - [id number] Start: 07-19-2016 Functional Status Date Assessment Result Facility 03-24-2024 Functional Status N/A [facility] [address] 01-27-2024 Functional Status N/A [facility] [address] Clinical Notes 08-26-2022 to 01-27-2024 Patient InstructionsYolanda [...] Status SARS-CoV-2 (COVID-19) Ad26 vaccine 08/04/2020 Recorded [facility] Comment on above: Result Comment: [...] If you do not have a responsible driver retraining instructor (family member or friend) with you to [...] If you do not have a responsible driver retraining instructor (family member or friend) with you to take you home, your exam cannot be done with sedation and will be cancelled. Please bring a list of all of your current medications, including any Zlox-zdh-Jqpquge medications with you. Medications If you take [...] exam. 2 04/2019 documented in this encounter [facility] 09-25-2022 History and physical note Hepatology [facility] consult by Dr Rush for liver [...] cc dr Rush documented in this encounter [facility] 08-31-2022 Evaluation note Encounter Date Diagnosis Assessment Notes Aug, Menopause (ICD-10 - Z78.0) [facility] 04-03-2023 Evaluation note* Encounter Date Diagnosis [...] not detecting early cancer [facility] Other Evaluation + Plan note No data available for this section [facility] Evaluation note* Diagnosis Polyp of colon, unspecified part of colon, unspecified type- Primary Liver hemangioma Hemangioma of intra-abdominal structures documented in this encounter [facility] note* Diagnosis Polyp of colon, unspecified part of colon, unspecified type Liver hemangioma Hemangioma of intra-abdominal structures documented in this encounter [facility] [place] noteNo InformationNortEn[facility] Other Evaluation note* Diagnosis Onset Date Resolution Status Cavernous hemangioma of liver acute Knee pain, bilateral acute Menopause acute Obesity acute Screening for colon cancer a cute Medicare annual wellness visit, initial noneactive Screening mammogram for breast cancer noneactive [facility] Work Phone: History general Narrative - [...] History hysterectomy Hospitalization History c section, childbirth [facility] Other Hospital Discharge instructions No data available for this section [facility] [address] Progress note No data available for this section [facility] [address] Reason for referral (narrative)* Outpatient Procedure (Routine) - Authorized Specialty Diagnoses / Procedures Referred By Ernst berry Referred To Contact [facility] Diagnoses Polyp of colon, unspecified part of colon, unspecified type Liver hemangioma Procedures COLONOSCOPY DIAGNOSTIC COLONOSCOPY FLX DX W/COLLJ SPEC WHEN PFRMD Yolanda Stafford MD [address] [place] [address] [facility] [place] [address] Referral ID Status Reason Start Date Expiration Date Visits Requested Visits Authorized [id number] Authorized Auto-Generat ed Referral 09/25/2022 09/26/2023 1 1 * Diagnostic Procedure Only (Routine) - Authorized Specialty Diagnoses / Procedures Referred By Ernst berry Referred To Contact [facility] Diagnoses Polyp of colon, unspecified part of colon, unspecified type Liver hemangioma Procedures US ABD RIGHT UPPER QUADRANT US ABDOMINAL REAL TIME W/IMAGE LIMITED Yolanda Stafford MD [address] [address] [facility] Referral ID Status Reason Start Date Expiration Date Visits Requested Visits Authorized [id number] Authorized Auto-Generat ed Referral 09/25/2022 10/25/2023 1 1 [facility] for referral (narrative)* Diagnostic Procedure Only (Routine) - Closed Specialty Diagnoses / Procedures Referred By Ernst berry Referred To Contact [facility] Diagnoses Polyp of colon, unspecified part of colon, unspecified type Liver hemangioma Procedures US ABD RIGHT UPPER QUADRANT US ABDOMINAL REAL TIME W/IMAGE LIMITED Yolanda Stafford MD [address] [place] [address] [facility] [place] [address] Referral ID Status Reason Start Date Expiration Date V isits Requested Visits Authorized [id number] Closed Auto-Generate d Referral 09/25/2022 10/25/2023 1 1 [facility] for visit Narrative* Diagnostic Procedure Only (Routine) - Closed Specialty Diagnoses / Procedures Referred By Ernst berry Referred To Contact [facility] IM[facility] Diagnoses Polyp of colon, unspecified part of colon, unspecified type Liver hemangioma Procedures US ABD RIGHT UPPER QUADRANT US ABDOMINAL REAL TIME W/IMAGE LIMITED Yolanda Stafford MD [address] [place] [address] [facility] [place] [address] Referral ID Status Reason Start Date Expiration Date V isits Requested Visits Authorized [id number] Closed Auto-Generate d Referral 09/25/2022 10/25/2023 1 1 [facility] Summary Purpose Family History No Family History Records Found Relationship Condition Age at Onset Recorded Date/T rakan brother Asthma Unknown father Malignant neoplasm Unknown Family history of lung cancer Unknown mother Family history of mental disorder Unknown Advance Directives No Advanced Directives Records FoundDocuments on File Type Date Recorded Patient Mail Caller Expl anation Advance Directive(s) 10/13/2013 10:12 PM [...] DATE CREATED AUTHOR AUTHOR'S ORGANIZ ATION 09/27/2022 [facility] DATE CREATED AUTHOR AUTHOR'S ORGANIZ ATION 10/04/2022 [facility] DATE CREATED AUTHOR AUTHOR'S ORGANIZ ATION 03/26/2024 Vincent Kwong [facility] DATE CREATED AUTHOR AUTHOR'S ORGANIZ ATION 10/22/[address] [facility] REASON FOR VISIT (unrecogniz ed section and content) Reason Comments New Patient Source Comments (unrecognize d section and content) In the event this informatio n is protected by the Federal Confidentiality of Alcohol and Drug Abuse Patient Records regulations: The Federal rules restrict any use of the information to criminally investigate or prosecute any alcohol or drug abuse patient.[facility] the event this information is protected by the Federal Confidentiality of Alcohol and Drug Abuse Patient Records regulations: The Federal rules restrict any use of the information to criminally investigate or prosecute any alcohol or drug abuse patient.[facility] Care Teams (unrecognized sec tion and content) Desktop Support Engineer Relationship Specialty Start Date End Date Peter Rush DO PCP - General Internal Medicine 09/11/12 Desktop Support Engineer Relationship Specialty Start Date End Date Peter [...] BE BASED ON THE PRIMARY CLINICAL RECORDS. [facility] [employer] provides no warranty or guarantee of the accuracy or completeness of information in this document.
[2024-11-15 07:35] VITALS: BP 157/85; PULSE 74; TEMP 36.3; O2SAT 97
[2024-11-15 08:21] VITALS: PULSE 94; O2SAT 96
[2024-11-15 08:22] VITALS: BP 125/69
[2024-11-15 08:23] VITALS: BP 189/82; PULSE 80; O2SAT 96
[2024-11-15] MEDS: LIDOCAINE HCL 2% 400 MG/20 ML MDV 15 ML INJ (08:28)
[2024-11-15] MEDS: BUPIVACAINE HCL 0.25% PF 25 MG/10 ML VIAL 2 ML INJ (08:32)
[2024-11-15] MEDS: METHYLPREDNISOLONE ACETATE 40 MG/ML VIAL INJ (08:32)
--- NOTE | 2024-11-15 08:36 | W.PM.PROCNOT ---
Date of procedure: 11/15/24 Pre-op diagnosis: Pain due to right knee osteoarthritis Post-op diagnosis: same as pre-op Procedure: Procedure: Right knee genicular nerve radiofrequency ablation Medications: Bupivacaine 0.25% 2cc, lidocaine 2% 15cc, depomedrol 40mg The patient was taken to the procedures suite and positioned in the supine position. I explained the details of the procedure to the patient including the risks, benefits and alternatives. We had an informed discussion and the patient verbalized understanding and signed the consent form. All questions were answered appropriately.? ? A 'time out' procedure was performed. The patient was identified, the chart was reviewed, and all allergies were confirmed. Laterality was conducted and marked. The right knee was marked with a sterile marking pen, prepped with Chloraprep, and sterilely draped.? Under fluoroscopic guidance, branches of the genicular nerves were localized.? First the superior medial genicular nerve was localized where the femoral shaft meets the medial epicondyle.? Skin was anesthetized with 1% lidocaine (only the superficial areas far from osseous contact).? The appropriate level of insertion was identified by placing a hemostat over the knee and obtaining an AP view. An 18-gauge 10 mm active tip 3.5 in needle was advanced in a coaxial manner in the lateral view at 1/2 the depth of the femur which was identified by placing forceps over the skin in the lateral view.? This was repeated on the superior lateral genicular nerve where the femoral shaft meets the lateral epicondyle and the inferior medial genicular nerve where the medial tibal shaft meets the tibial epicondyle (needle was advanced to half the depth of the tibia).? Needle placement was confirmed with a lateral view in all sites, after negative aspiration, 1cc of 2% lidocaine was injected at each of the three sites. ? Sensory testing was completed at 0.5 V at each level and motor testing was negative at 1.5 V for all 3 levels. Each of the sites were lesioned for 80 degrees at 80 seconds, with impedance < 500. The probes were subsequently removed and the sites of insertion were bandaged. The patient was taken to the postoperative area and discharged in good condition. Anesthesia: Local Surgeon: Felisa Ruiz Pathology: none sent Condition: stable Disposition: no change
== END 2024-11-15 08:43 | disposition home or self-care (01) ==
LOC: SURGOUT 07:28
PROVIDERS: PCP Internal Medicine; Visit Provider Anesthesiology
DX: M25.561 Pain in right knee (principal); M17.11 Unilateral primary osteoarthritis, right knee
CPT/HCPCS: 64624; J0665; J1010

== ENCOUNTER 2024-12-14 10:40 | Outpatient (OUT) | payer MEDICARE, OTHER, SELFPAY ==
--- OUTSIDE RECORDS SUMMARY | 2024-06-15 06:00 | XMS_ITS ---
Author Organization [facility] in [place] Address [address] [place] [address] Care Team Providers Care Control Room Tender Name Role Phone Peter Rush DO Primary Care Provider Javier Fontaine [phone] Allergies Allergen (clinical drug ingredient) Drug/Non Drug [...] Problem Status W/U Status Risk Notes Problem [id number] Primary osteoarthrit is, left ankle and foot (M19.072) Active confirmed Vital Signs Weight 220 lbs 06/15/2024 Height 66 in 06/15/2024 Heart Rate 97 /min 06/15/2024 Respiratory Rate 16 /min 06/15/2024 BMI 35.51 kg/m2 06/15/2024 Oximetry 98 % 06/15/2024 Encounters Encounter Location Date Provider Diagnosis [facility] (PODIATRY) [address] [place] [address] [place] [address] 06/15/2024 Javier Luke Left foot pain M79.672 [...] arthritis. She underwent right midfoot fusion in [place] several years ago and is very happy [...] arthritis. She underwent right midfoot fusion in [place] several years ago and is very happy [...] Notes * Bettina REEDDOB:1955 (69 yo F)Acc No.[id number]:06/15/2024 New Patient Patient: Bettina GOLDSMITH Provider: Lorenzo Luke DPM, MS :1955 A ge:69 Y S ex:Female Date:06/15/2024 Address:[address] [place] [address], [place] [address] Pcp:Peter Rush, DO Check In:09:41 AM ESTCheck O ut:10:47 AM EST Subjective: * Chief Complaints: * L eft foot second opinion * HPI: G eneral: Pt has complaints of left midfoot pain, 03/04 with WB, achy pain NWB. Pt reports history of right midfoot fusion at [facility] [address] Garsia and relays [...] MS Date: 0 06/15/2024 Generated for Leonardo conteh/Rayray/Pallavismitting on: 0 12/14/2024 10:42 AM EDT History and Physical Notes * HPI (History of Present Illness) Category Sub-Category Detail Notes Category Not es General Pt has complain ts of left midfoot pain, 10/10 with WB, achy pain NWB. Pt reports history of right midfoot fusion at [facility] [address] Garsia and relays [...]
--- OUTSIDE RECORDS SUMMARY | 2024-06-22 05:15 | XMS_ITS ---
Author Organization [facility] in [place] Address [address] [place] [address] Care Team Providers Care Director Of Assessing Name Role Phone Peter Rush DO Primary Care Provider Javier Fontaine [phone] Allergies Allergen (clinical drug ingredient) Drug/Non Drug Allergy documented on EMR Reaction Allergy Type Onset Date Status Vicodin Unknown Drug Allergy Active oxycodone oxyCODONE Unknown Drug Allergy Active morphine Morphine Unknown Drug Allergy Active Reason For Referral Reason Referral to Diagnosis 1 Primary osteoarthrit is, left ankle and foot (M19.072) Referral Organization [facility] (PODIATRY) Referring Provider First Name Javier Referring [...] Encounter Location Date Provider Diagnosis [facility] ([facility]) [address] [place] [address] [place] [address] 06/22/2024 Javier Luke Primary osteoarthritis, left ankle and foot M19.072 Assessments Encounter Date Diagnosis (ICD Code) Assessment Notes Treatment Notes Treatment Clinical Notes Section Notes 06/22/2024 Primary osteoarthriti s, left ankle and foot (ICD-10 - M19.072) Patient is a 69-year-old female who underwent right second and third tarsometatarsal joint and naviculocuneiform joint fusion in [place] years ago. She is having similar symptoms [...] tarsometatarsal joint and naviculocuneiform joint fusion in [place] years ago. She is having similar symptoms [...] Notes * Bettina REEDDOB:1955 (69 yo F)Acc No.[id number]:06/22/2024 Follow Up Patient: Bettina GOLDSMITH Provider: Lorenzo Luke DPM, MS :1955 A ge:69 Y S ex:Female Date:06/22/2024 Address:[address] [place] [address], [place] [address] Pcp:Peter Rush, DO Check In:09:09 AM ESTCheck [...] DPM, MS Date: 0 06/22/2024 [facility]/Amadouitting on: 0 12/14/2024 10:42 AM EDT History [...]
--- OUTSIDE RECORDS SUMMARY | 2024-07-12 06:30 | XMS_ITS ---
Author Organization [facility] Address [address] [place] [address] Care Team Providers Care Pulmonary Disease Specialist Name Role Phone ARANZA PICHARDO DO Primary Care Provider Sonny Luis Unavailable [phone] REASON FOR VISIT ALYSSIA KNEE INJ Encounters Encounter Location Date Provider Diagnosis [facility] [facility] [address] [place] [address] [place] [address] 07/12/2024 Sonny Wong Plan Of Treatment No Information Progress Notes * RADHA REED LDOB:[birth year] (69 yo F)Acc No.[id number]:07/12/2024 Patient: RADHA GOLDSMITH Provider: Rika Wong MD :1955 A ge:69 Y S ex:Female Date:07/12/2024 Address:[address] [place], [place] [phone] Pcp:ARANZA PICHARDO DO Subjective: * Chief Complaints: * 1 . ALYSSIA KNEE INJ. * Medical History: Objective: * Vitals: Assessment: Plan: * Treatment: Forms: * Images: * Electronic signature of Jaun Wong MD on 12/14/2024 at 10:42 AM EDT Sign off status: Pending * Provider: Rika Wong MD Date: 07/12/2024 Generated for Leonardo conteh/Rayray/eTransmitting on: 0 12/14/2024 10:42 AM EDT
--- NOTE | 2024-12-14 | XR_ITS ---
The [address] [address] Patient Name: RADHA REED MRN: [id number] date: 1955 Sex: F Assigned Patient Location: [facility] Current Patient Location: [facility] Accession/Order Number: [id number] Exam Date: 12/14/2024 11:10 Report Date: 12/14/2024 11:13 At the request of: CÉSAR FORREST MD Procedure: XR knee ALYSSIA 4V AP PELVIS: Bilateral knee series 4 views each CLINICAL HISTORY: m25.561 m25.562 Pain in both knees COMPARISON: None Pelvis: Minimal degenerative changes of the hips without acute bony process. Additional degenerative changes seen involving the SI joints and visualized lower lumbar spine. Knee series: Mild degenerative changes of both knees with medial weightbearing joint space narrowing right greater than left. No acute bony process is seen. No joint effusion. XR/XR knee ALYSSIA 4V IMPRESSION: MINIMAL DEGENERATIVE CHANGES OF THE HIPS WITHOUT ACUTE BONY PROCESS. MILD DEGENERATIVE CHANGES OF BOTH KNEES WITHOUT ACUTE BONY PROCESS. Impression dictated by: Go Ray Jr., D.O. 12/14/2024 11:13 AM Dictation Location: [place] [address] Electronically authenticated by: [id number] Date: 12/14/2024 11:13
--- NOTE | 2024-12-14 | XR_ITS ---
The [address] [address] Patient Name: RADHA REED MRN: [id number] date: 1955 Sex: F Assigned Patient Location: [facility] Current Patient Location: [facility] Accession/Order Number: [id number] Exam Date: 12/14/2024 11:10 Report Date: 12/14/2024 11:13 At the request of: CÉSAR FORREST MD Procedure: XR knee ALYSSIA 4V AP PELVIS: Bilateral knee series 4 views each CLINICAL HISTORY: m25.561 m25.562 Pain in both knees COMPARISON: None Pelvis: Minimal degenerative changes of the hips without acute bony process. Additional degenerative changes seen involving the SI joints and visualized lower lumbar spine. Knee series: Mild degenerative changes of both knees with medial weightbearing joint space narrowing right greater than left. No acute bony process is seen. No joint effusion. XR/XR pelvis 1-2V IMPRESSION: MINIMAL DEGENERATIVE CHANGES OF THE HIPS WITHOUT ACUTE BONY PROCESS. MILD DEGENERATIVE CHANGES OF BOTH KNEES WITHOUT ACUTE BONY PROCESS. Impression dictated by: Go Ray Jr., D.O. 12/14/2024 11:13 AM Dictation Location: [place] [address] Electronically authenticated by: [id number] Y Date: 12/14/2024 11:13
--- OUTSIDE RECORDS SUMMARY | 2024-12-14 10:42 | XMS_ITS | Clinical Summary ---
Author Organization [facility] Address [address] [place] [address] Care Team Providers Care Paratransit Driver Name Role Phone Peter Rush DO Primary Care Provider [phone] Allergies Active Allergy Reactions Criticality Noted Date [...] is lower risk 4 09/25/2022 Data from: https://www.neighborhoodatlas.medicine.[facility].edu/. Last address used for calculation [address] [...] 2007 Shingrix Vaccine (1 of 2) 2007 Medicare Annual Wellness Visit 05/26/2022 Bone Density Screening 2022 Colonoscopy 06/09/2023 06/09/2013, 06/09/2013 Colorectal Cancer Screening 06/09/2023 Covid-19 Vaccine (2 - 2023-2 5 season) 2024 08/04/2020 Advance Directive Discussion 05/26/2024 Influenza Vaccine (#1) 2025 , 03/14/2018, 02/23/2017 Diabetes Screening 09/26/2025 09/26/2022, 1 06/27/2014, 01/13/2015, Additional history exists RSV Vaccine (1 - 1-dose 75+ series) 2032 Medical Devices Implanted Type Area It Senior Analyst Device Identifier Shelf Expiration Date Model / Serial / Lot Graft Enhance Demineralized Cortical Fiber Bone Allograft Dehydrate 2.5ml - [id number] Implanted:Qty: 1 on 07/19/2016 at [facility] Implant Right: Bone - Foot MTF 08/01/2018 [id number] / [id number] / Description:graft brought in to room at 0840. Opened sterily to field by Donovan Christensen RN to Abigail Hayes UTILITY LOCATE TECHNICIAN at 1015. Also handled by Moe Ulrich MD and Abigail Carey MD. No preparation required. Orq-Lr-K-Kind Implant - Crushed Cancellous 15cc Implanted:Qty: 1 on 07/19/2016 at [facility] Implant Right: Bone - Foot MTF 01/10/2019 [id number] / [id number] / Description:AZK-EG-T-KIND IM PLANT - Crushed Cancellous 15cc. Brought into room at 0840. Handed sterily to field by Donovan Christensen RN to Abigail Hayes UTILITY LOCATE TECHNICIAN at 1015. Also handled by Moe Ulrich MD, and Abigail Carey MD. No preparation required. Plate 17mm Bone 2 Hole Compression Lower Extremity - [id number] Implanted:Qty: 1 on 07/19/2016 at [facility] Plate Right: Bone - Foot [employer] [id number] / / Plate Uni-Cp Stainless Steel 25mm Bone 2 Hole Compression - [id number] Implanted:Qty: 1 on 07/19/2016 at [facility] Plate Right: Bone - Foot [employer] [id number] / / Plate Lcp Long T Stainless Steel 61mm Bone 2 Hole Variable Angle Fusion - [id number] Implanted:Qty: 1 on 07/19/2016 at [facility] Plate Right: Bone - Foot [employer] 5 / / Screw Lcp 2.7mm T8 Stainless Steel 16mm Bone Variable Angle Lock Self Tap - [id number] Implanted:Qty: 1 on 07/19/2016 at [facility] Screw Right: Bone - Foot [employer] [place] 6 / / Screw Lcp 2.7mm T8 Stainless Steel 18mm Bone Variable Angle Lock Self Tap - [id number] Implanted:Qty: 1 on 07/19/2016 at [facility] Screw Right: Bone - Foot [employer] [place] 8 / / Screw Lcp 2.7mm T8 Stainless Steel 18mm Bone Stardrive Self Tap Modular - [id number] Implanted:Qty: 1 on 07/19/2016 at [facility] Screw Right: Bone - Foot [employer] [place] 202.878 / / Screw Lcp 2.7mm T8 Stainless Steel 16mm Bone Stardrive Self Tap Modular - [id number] Implanted:Qty: 1 on 07/19/2016 at [facility] Screw Right: Bone - Foot [employer] [place] 202.876 / / Screw Uni-Cp 3.5mm Stainless Steel 16mm Bone Lock Replacement Washer - [id number] Implanted:Qty: 2 on 07/19/2016 at [facility] Screw Right: Bone - Foot [employer] [id number] / / Screw Lcp 2.7mm T8 Stainless Steel 22mm Bone Variable Angle Lock Self Tap - [id number] Implanted:Qty: 1 on 07/19/2016 at [facility] Screw Right: Bone - Foot [employer] [place] 02.211.02 2 / / Screw Uni-Cp 3.5mm Stainless Steel 20mm Bone Lock Replacement Washer - [id number] Implanted:Qty: 1 on 07/19/2016 at [facility] Screw Right: Bone - Foot [employer] [id number] / / Screw Uni-Cp 3.5mm Stainless Steel 28mm Bone Lock Sterile Foot - [id number] Implanted:Qty: 1 on 07/19/2016 at [facility] Screw Right: Bone - Foot [employer] [id number] / / Screw Lcp 4mm 5mm 1.35mm .5 Thread Small Hexagon Reverse Cut Flute - [id number] Implanted:Qty: 1 on 07/19/2016 at [facility] Screw Right: Bone - Foot [employer] [place] 207.718 / / Screw Lcp 2.7mm T8 Stainless Steel 30mm Bone Stardrive Self Tap Modular - [id number] Implanted:Qty: 1 on 07/19/2016 at [facility] Screw Right: Bone - Foot [employer] 202.890 / / Washer Surfix 3.5mm Stainless Steel Orthopedic Lock Midfoot - [id number] Implanted:Qty: 4 on 07/19/2016 at [facility] Washer Right: Bone - Foot [employer] [id number] / / Procedures Procedure Name Priority Date/Time [...] 6.3 - 8.0 g/dL 09/26/2022 2:15 PM [facility] Albumin 4.6 3.9 - 4.9 g/dL 09/26/2022 2:15 PM [facility] Calcium, Total 9.7 8.5 - 10.2 mg/dL 09/26/2022 2:15 PM [facility] Bilirubin, Total 0.5 0.2 - 1.3 mg/dL 09/26/2022 2:15 PM [facility] Alkaline Phosphatase 89 34 - 123 U/L 09/26/2022 2:15 PM [facility] AST 21 13 - 35 U/L 09/26/2022 2:15 PM [facility] ALT 28 7 - 38 U/L 09/26/2022 2:15 PM [facility] Glucose 98 74 - 99 mg/dL 09/26/2022 2:15 PM [facility] Comment: The [place] Diabetes Association (ADA) provides guidance for cutoff [...] Standards of Medical Care in Diabetes 2016, [place] Diabetes Association. Diabetes Care. 2016.39(Suppl 1). BUN 17 7 - 21 mg/dL 09/26/2022 2:15 PM [facility] Creatinine 0.68 0.58 - 0.96 mg/dL 09/26/2022 2:15 PM [facility] Sodium 142 136 - 144 mmol/L 09/26/2022 2:15 PM [facility] Potassium 4.6 3.7 - 5.1 mmol/L 09/26/2022 2:15 PM [facility] Chloride 104 97 - 105 mmol/L 09/26/2022 2:15 PM [facility] CO2 29 22 - 30 mmol/L 09/26/2022 2:[address] [facility] Anion Gap 9 9 - 18 mmol/L 09/26/2022 2:[address] [facility] Estimated Glomerular Filtration Rate 97 >=60 mL/min/1.7 3m 09/26/2022 2:[address] [facility] Comment:Estimated Glomerular Filtration Rate (eGFR) [...] 1:20 PM EDT 09/26/2022 1:21 PM EDT Yolanda Gutierrez MD LABORATORY Final Re sult [facility] [address] [facility] [place] [address], * COLONOSCOPY - DIAGNOSTIC (06/09/2013 9:13 AM EST) Diesel Dragline Operator A31 Gastrointestinal Endoscopy Patient Name: Bettina Larios Procedure Date: 06/09/2013 9:13 AM Date of : 1955 Admit Type: Outpatient Age: 57 Room: 1 Procedure 10 ([id number]) Gender: Female Note Status: Finalized Attending MD: [...] Laterality Modality Other 06/09/2013 9:13 AM EST [facility] Provider DIGESTIVE DISEASE Final Result from Last 3 Months or Most Recently Relevant to Health Maintenance Insurance MEDICARE [facility] [place] [place] Advance Directives Documents on File Type Date Recorded Patient Air Traffic Controller Center Expl anation Advance Directive(s) 10/13/2013 10:12 PM Care Teams Paratransit Driver Relationship Specialty Start Date End Date Peter Rush DO PCP - General Internal Medicine 09/11/12
--- OUTSIDE RECORDS SUMMARY | 2024-12-14 10:42 | XMS_ITS | Encounter Summary ---
Author Organization [facility] Address [address] [place] [address] Care Team Providers Care Screen Tacker Name Role Phone Peter Rush DO Primary Care Provider [phone] Source Comments In the event this information is protected by the Federal Confidentiality of Alcohol and Drug AbusePatient Records regulations: The Federal rules restrict any use of the information to criminally investigate or prosecute any alcohol or drug abuse patient.[facility] Encounter Details Date Type Department Care Team (Late st Contact Info) Description 11/10/2013 Patient Msg Medical Records [address] [place] [address] Provider, Cc RE: Patient Registration Completed Social [...] on filedocumented in this encounter Care Teams Screen Tacker Relationship Specialty Start Date End Date Peter Rush DO PCP - General Internal Medicine 09/11/12 documented as of this encounter
--- OUTSIDE RECORDS SUMMARY | 2024-12-14 10:42 | XMS_ITS | Encounter Summary ---
Author Organization [facility] Address [address] [place] [address] Care Team Providers Care Director Of Automation Name Role Phone Victor Manuel Peter Mela CHAIREZ Primary Care Provider [phone] Source Comments In the event this information is protected by the Federal Confidentiality of Alcohol and Drug AbusePatient Records regulations: The Federal rules restrict any use of the information to criminally investigate or prosecute any alcohol or drug abuse patient.[facility] Encounter Details Date Type Department Care Team (Late st Contact Info) Description 2022 [place] [address] Provider, Ccf Medicare Coverage of Physical Exams [...] N ot on file 04/30/2020 Data from: https://www.neighborhoodatlas.medicine.[facility].edu/. Last address used for calculation Not on [...] on filedocumented in this encounter Care Teams Director Of Automation Relationship Specialty Start Date End Date Peter Rush DO PCP - General Internal Medicine 09/11/12 documented as of this encounter
--- OUTSIDE RECORDS SUMMARY | 2024-12-14 10:42 | XMS_ITS | Encounter Summary ---
Author Organization [facility] Address [address] [place] [address] Care Team Providers Care Agribusiness Professor Name Role Phone Peter Rush DO Primary Care Provider [phone] Source Comments In the event this information is protected by the Federal Confidentiality of Alcohol and Drug AbusePatient Records regulations: The Federal rules restrict any use of the information to criminally investigate or prosecute any alcohol or drug abuse patient.[facility] Encounter Details Date Type Department Care Team (Late st Contact Info) Description 01/13/2023 Patient Msg Gastroenterology [address] [place] [id number] Provider, Ccf appointment cancellation Social History Tobacco [...] is lower risk 4 09/25/2022 Data from: https://www.neighborhoodatlas.medicine.[facility].edu/. Last address used for calculation [...] on filedocumented in this encounter Care Teams Agribusiness Professor Relationship Specialty Start Date End Date Peter Rush DO PCP - General Internal Medicine 09/11/12 documented as of this encounter
--- OUTSIDE RECORDS SUMMARY | 2024-12-14 10:42 | XMS_ITS | Patient Health Record ---
Author Organization [facility] Address [address] [place] [address] Care Team Providers Care Molded Goods Controls Operator Name Role Phone ARANZA PICHARDO DO Primary Care Provider Sonny Luis Unavailable [phone] Matias Nay Unavailable Reason For Referral No Information Social History [...] Status Risk Notes Problem Osteoarthritis of knee (693020399) Bilateral primary osteoarthritis of knee (M17.0) Active confirmed Vital Signs Height 5'6 in 05/03/2024 Weight 220 lbs 05/03/2024 BMI 35.51 05/03/2024 Encounters Encounter Location Date Provider Diagnosis [facility] Office [address] [place] [address] [place] [address] 05/03/2024 [facility] Bilateral primary osteoarthritis of knee M17.0 [facility] Office [address] [place] [address] [place] [address] 2024 [facility] Bilateral primary osteoarthritis of knee [...] Date Coverage End [place] [address] [place] [address] [id number] RADHA REED Self - patient is the insured [facility] [address] [place] [address] [phone] [id number] RADHA REED Self - patient is the insured Medications Administered Medication Instructions Date of Administration Dosage Notes Depo-Medrol 05/03/2024 2 mL lidocaine 05/03/2024 4 mL
--- OUTSIDE RECORDS SUMMARY | 2024-12-14 10:42 | XMS_ITS | Encounter Summary ---
Author Organization [facility] Address [address] [place] [address] Care Team Providers Care Scientific Informatics Project Leader Name Role Phone Victor Manuel Peter Mela CHAIREZ Primary Care Provider [phone] Source Comments In the event this information is protected by the Federal Confidentiality of Alcohol and Drug AbusePatient Records regulations: The Federal rules restrict any use of the information to criminally investigate or prosecute any alcohol or drug abuse patient.[facility] Encounter Details Date Type Department Care Team (Late st Contact Info) Description 05/16/2015 Patient Msg Spine [place] [address] [place] [phone] RE: Appointment Cancellation Request Social History Tobacco [...] on filedocumented in this encounter Care Teams Scientific Informatics Project Leader Relationship Specialty Start Date End Date Peter Rush DO PCP - General Internal Medicine 09/11/12 documented as of this encounter
--- OUTSIDE RECORDS SUMMARY | 2024-12-14 10:42 | XMS_ITS | Encounter Summary ---
Author Organization [facility] Address [address] [place] [address] Care Team Providers Care Chief Business Officer Name Role Phone Peter Rush Primary Care Provider [phone] Source Comments In the event this information is protected by the Federal Confidentiality of Alcohol and Drug AbusePatient Records regulations: The Federal rules restrict any use of the information to criminally investigate or prosecute any alcohol or drug abuse patient.[facility] Encounter Details Date Type Department Care Team (Late st Contact Info) Description 02/15/2015 Get Medical Advice Neurology [address] [place], [place] [phone] Bettina Madrid MD [address] [place], [place] [phone] Test Result Question Social History Tobacco Use [...] on filedocumented in this encounter Care Teams Chief Business Officer Relationship Specialty Start Date End Date Peter Rush DO PCP - General Internal Medicine 09/11/12 documented as of this encounter
--- OUTSIDE RECORDS SUMMARY | 2024-12-14 10:42 | XMS_ITS | Encounter Summary ---
Author Organization [facility] Address [address] [place] [address] Care Team Providers Care Lace Machine Operator Name Role Phone Peter Rush DO Primary Care Provider [phone] Source Comments In the event this information is protected by the Federal Confidentiality of Alcohol and Drug AbusePatient Records regulations: The Federal rules restrict any use of the information to criminally investigate or prosecute any alcohol or drug abuse patient.[facility] Encounter Details Date Type Department Care Team (Late st Contact Info) Description 07/29/2013 Patient Msg Medical Records [address] [place] [address] Provider, Ccf [facility] Procedure Social [...] on filedocumented in this encounter Care Teams Lace Machine Operator Relationship Specialty Start Date End Date Peter Rush DO PCP - General Internal Medicine 09/11/12 documented as of this encounter
--- OUTSIDE RECORDS SUMMARY | 2024-12-14 10:42 | XMS_ITS | Encounter Summary ---
Author Organization [facility] Address [address] [place] [address] Care Team Providers Care Big Data Hadoop Developer Name Role Phone Peter Rush Primary Care Provider [phone] Source Comments In the event this information is protected by the Federal Confidentiality of Alcohol and Drug AbusePatient Records regulations: The Federal rules restrict any use of the information to criminally investigate or prosecute any alcohol or drug abuse patient.[facility] Encounter Details Date Type Department Care Team (Late st Contact Info) Description 01/22/2016 Get Medical Advice Urology [address] [place] [address] Jannet Galindo, TRADE PROMOTION ANALYST.[facility] [address] [place], [place] [phone] RE: Non-Urgent Medical Question Social History Tobacco [...] on filedocumented in this encounter Care Teams Big Data Hadoop Developer Relationship Specialty Start Date End Date Peter Rush DO PCP - General Internal Medicine 09/11/12 documented as of this encounter
--- OUTSIDE RECORDS SUMMARY | 2024-12-14 10:42 | XMS_ITS | Encounter Summary ---
Author Organization [facility] Address [address] [place] [address] Care Team Providers Care Spot Machine Operator Name Role Phone Peter Rush Mela CHAIREZ Primary Care Provider [phone] Source Comments In the event this information is protected by the Federal Confidentiality of Alcohol and Drug AbusePatient Records regulations: The Federal rules restrict any use of the information to criminally investigate or prosecute any alcohol or drug abuse patient.[facility] Encounter Details Date Type Department Care Team (Late st Contact Info) Description 01/04/2014 Abstract Urology [address] [place] [address] Jannet Galindo, COMMUNITY ENGAGEMENT REPRESENTATIVE.[facility] [address] [place] [address] Social History Tobacco Use Types Packs/Day Years [...] kidney documented in this encounter Care Teams Spot Machine Operator Relationship Specialty Start Date End Date Peter Rush DO PCP - General Internal Medicine 09/11/12 documented as of this encounter
--- OUTSIDE RECORDS SUMMARY | 2024-12-14 10:42 | XMS_ITS | Encounter Summary ---
Author Organization [facility] Address [address] [place] [address] Care Team Providers Care Trucking Supervisor Name Role Phone Peter Rush DO Primary Care Provider [phone] Source Comments In the event this information is protected by the Federal Confidentiality of Alcohol and Drug AbusePatient Records regulations: The Federal rules restrict any use of the information to criminally investigate or prosecute any alcohol or drug abuse patient.[facility] Encounter Details Date Type Department Care Team (Late st Contact Info) Description 02/23/2015 Patient Msg Medical Records [address] [place] [address] Provider, Ccf RE: Appointment Cancellation Request Social [...] on filedocumented in this encounter Care Teams Trucking Supervisor Relationship Specialty Start Date End Date Peter Rush DO PCP - General Internal Medicine 09/11/12 documented as of this encounter
--- OUTSIDE RECORDS SUMMARY | 2024-12-14 10:43 | XMS_ITS | Encounter Summary ---
Author Organization [facility] Address [address] [place] [address] Care Team Providers Care Second Hand Name Role Phone Peter Rush DO Primary Care Provider [phone] Source Comments In the event this information is protected by the Federal Confidentiality of Alcohol and Drug AbusePatient Records regulations: The Federal rules restrict any use of the information to criminally investigate or prosecute any alcohol or drug abuse patient.[facility] Encounter Details Date Type Department Care Team (Late st Contact Info) Description 03/11/2014 Patient Msg Medical Records [address] [place] [address] Provider, Ccf RE: Appointment Cancellation Request Social [...] on filedocumented in this encounter Care Teams Second Hand Relationship Specialty Start Date End Date Peter Rush DO PCP - General Internal Medicine 09/11/12 documented as of this encounter
--- OUTSIDE RECORDS SUMMARY | 2024-12-14 10:43 | XMS_ITS | Encounter Summary ---
Author Organization [facility] Address [address] [place] [address] Care Team Providers Care Z Os Mainframe Systems Programmer Name Role Phone Peter Rush Mela CHAIREZ Primary Care Provider Source Comments In the event this information is protected by the Federal Confidentiality of Alcohol and Drug AbusePatient Records regulations: The Federal rules restrict any use of the information to criminally investigate or prosecute any alcohol or drug abuse patient.[facility] Encounter Details Date Type Department Care Team (Late st Contact Info) Description 08/18/2019 Patient Msg Urology [address] [place] [address] Jannet Galindo, METHODS ANALYST.[facility] [address] [place], [place] [phone] Appointment Cancellation Request Social History Tobacco Use [...] on filedocumented in this encounter Care Teams Z Os Mainframe Systems Programmer Relationship Specialty Start Date End Date Peter Rush DO PCP - General Internal Medicine 09/11/12 documented as of this encounter
--- OUTSIDE RECORDS SUMMARY | 2024-12-14 10:43 | XMS_ITS | Encounter Summary ---
Author Organization [facility] Address [address] [place] [address] Care Team Providers Care Port Drier Name Role Phone Peter Rush DO Primary Care Provider [phone] Source Comments In the event this information is protected by the Federal Confidentiality of Alcohol and Drug AbusePatient Records regulations: The Federal rules restrict any use of the information to criminally investigate or prosecute any alcohol or drug abuse patient.[facility] Encounter Details Date Type Department Care Team (Late st Contact Info) Description 03/11/2014 Patient Msg Medical Records [address] [place] [address] Provider, Ccf RE: Appointment Cancellation Request Social [...] on filedocumented in this encounter Care Teams Port Drier Relationship Specialty Start Date End Date Peter Rush DO PCP - General Internal Medicine 09/11/12 documented as of this encounter
--- OUTSIDE RECORDS SUMMARY | 2024-12-14 10:43 | XMS_ITS | Patient Health Record ---
Author Organization [facility] in [place] Address [address] [place] [address] Care Team Providers Care Database Reporting Consultant Name Role Phone Peter Rush DO Primary Care Provider Ratna Fontaine [phone] Allergies Allergen (clinical drug ingredient) Drug/Non Drug Allergy documented on EMR Reaction Allergy Type Onset Date Status Vicodin Unknown Drug Allergy Active oxycodone oxyCODONE Unknown Drug Allergy Active morphine Morphine Unknown Drug Allergy Active Results Component Value Reference Range Notes XR foot LT min 3V (Not yet r eviewed by provider) Interpretation: Performing Lab: Notes/Report: Source Facility: [place] [address] XRay Report Signed Patient: BETTINA REED MR#: [id number] : 1955 Acct:[id number] Age/Sex: 69 / F ADM Date: 06/15/24 Loc: RAD Attending Dr: Ratna Luke D.P.M. Ordering Physician: Ratna Luke D.P.M. Date of Service: 06/15/24 Procedure(s): XR foot LT min 3V Accession Number(s): [id number] cc: Peter Rush D.O.; Ratna Luke D.P.M. [place] [id number] Patient Name: BETTINA REED MRN: [id number] date: 1955 Sex: F Assigned Patient Location: RAD Current Patient Location: RAD Accession/Order Number: [id number] Exam Date: 06/15/2024 09:20 Report Date: 06/15/2024 [...] Signed By: 06/15/24 1311 DD/ 1308 TD/TT: Test Hole Driller: [place] [address] XRay Report Signed Patient: ZACK REED MR#: [id number] : 1955 Acct:[id number] Age/Sex: 69 / F ADM Date: 06/15/24 Loc: RAD Attending Dr: Ratna Luke D.P.M. Ordering Physician: Ratna Luke D.P.M. Date of Service: 06/15/24 Procedure(s): XR foot LT min 3V Accession Number(s): [id number] cc: Peter Rush; Ratna Luke D.P.M. [place] [address] Patient Name: BETTINA REED MRN: [id number] date: 1955 Sex: F Assigned Patient Location: [facility] Current Patient Location: [facility] Accession/Order Numb er: [id number] Exam Date: 06/15/2024 09:20 Report Date: 06/15/2024 [...] Signed By: 06/15/24 1311 DD/ 1308 TD/TT: Test Hole Driller: XR DEXA axial skeleton (Not yet reviewed by provider) Interpretation: Performing Lab: Notes/Report: Source Facility: [place] [address] XRay Report Signed Patient: BETTINA REED MR#: [id number] : 1955 Acct:[id number] Age/Sex: 69 / F ADM Date: 06/21/24 Loc: CT Attending Dr: Ratna Luke D.P.M. Ordering Physician: Ratna Luke D.P.M. Date of Service: 06/21/24 Procedure(s): XR DEXA axial skeleton Accession Number(s): [id number] cc: Peter Rush D.O.; Ratna Luke D.P.M. [place] [address] Patient Name: BETTINA REED MRN: [id number] date: 1955 Sex: F Assigned Patient Location: CT Current Patient Location: CT Accession/Order Number: [id number] Exam Date: 06/21/2024 08:45 Report Date: 06/21/2024 [...] prevention and treatment of osteoporosis. Osteoporos Int. 2021;33(10):4299-8094. doi: 10.1007/r09989-821-11422-w. Epub 2021Sep 20. Erratum in: Osteoporos Int. 2021Dec 20;: PMID: [id number]; PMCID: [id number]. Electronically authenticated by: SONNY RANKIN Date: 06/21/2024 10:13 Dictated By: Sonny Rankin M.D. Signed By: 06/21/24 1015 DD/ 1013 TD/TT: Test Hole Driller: [place] [address] XRay Report Signed Patient: ZACK REED MR#: [id number] : 1955 Acct:[id number] Age/Sex: 69 / F ADM Date: 06/21/24 Loc: CT Attending Dr: Ratna Luke D.P.M. Ordering Physician: Ratna Luke D.P.M. Date of Service: 06/21/24 Procedure(s): XR DEX A axial skeleton Accession Number(s): [id number] cc: Peter Rush; Ratna Luke D.P.M. [place] [address] Patient Name: BETTINA REED MRN: [id number] date: 1955 Sex: F Assigned Patient Location: CT Current Patient Location: CT Accession/Order Numb er: [id number] Exam Date: 06/21/2024 08:45 Report Date: 06/21/2024 [...] Chloé KL, Himanshu EM, Christopher KG, AJ, rAabella ES. The clinician's guid e to prevention and treatment of osteoporosis. Osteoporos Int. 2021;33(10) :2522-6553. doi: 10.1007/w03260-761-03999-n. Epub 2021Sep 20. Erratum in: Oste oporos Int. 2021Dec 20;: PMID: [id number]; PMCID: [id number]. Electronically authe nticated by: SONNY RANKIN Date: 06/21/2024 10:13 Dictated By: Sonny Rankin M.D. Signed By: 06/21/24 1015 DD/ 1013 TD/TT: Test Hole Driller: CT FOOT LT WO CON (Not yet r eviewed by provider) Interpretation: Performing Lab: Notes/Report: Source Facility: [place] [address] [place] [address] CT Scan Report Signed Patient: BETTINA REED MR#: [id number] : 1955 Acct:[id number] Age/Sex: 69 / F ADM Date: 06/21/24 Loc: CT Attending Dr: Ratna Luke D.P.M. Ordering Physician: Ratna Luke D.P.M. Date of Service: 06/21/24 Procedure(s): CT foot LT wo con Accession Number(s): [id number] cc: Peter Rush D.O. [facility] [place] [id number] Patient Name: BETTINA REED MRN: [id number] date: 1955 Sex: F Assigned Patient Location: CT Current Patient Location: CT Accession/Order Number: [id number] Exam Date: 06/21/2024 08:45 Report Date: 06/21/2024 [...] Signed By: 06/21/24 1237 DD/ 1234 TD/TT: Test Hole Driller: [place] [address] CT Scan Report Signed Patient: ZACK REED MR#: [id number] : 1955 Acct:[id number] Age/Sex: 69 / F ADM Date: 06/21/24 Loc: CT Attending Dr: Ratna Luke D.P.M. Ordering Physician: Ratna Luke D.P.M. Date of Service: 06/21/24 Procedure(s): CT foot LT wo con Accession Number(s): [id number] cc: Peter Rush D.O. [place] [address] Patient Name: BETTINA REED MRN: [id number] date: 1955 Sex: F Assigned Patient Location: CT Current Patient Location: CT Accession/Order Numb er: [id number] Exam Date: 06/21/2024 08:45 Report Date: 06/21/2024 [...] Signed By: 06/21/24 1237 DD/ 1234 TD/TT: Test Hole Driller: Reason For Referral Reason Referral to Diagnosis 1 Primary osteoarthrit is, left ankle and foot (M19.072) Referral Organization [facility] (PODIAT[facility]) Referring Provider First Name Ratna Referring Provider Last Name [facility] [place] Referring Provider Speciality Podiatry Referred Provider Specialty Pain Medicin e Referral Priority Routine Reason new referral Diagnosis 1 Left foot pain (M79. 672) Diagnosis 2 Primary osteoarthrit is, left ankle and foot (M19.072) Referral Organization [facility] (PODIATRY) Referring Provider First Name Ratna Referring Provider Last Name Ti Referring Provider [facility] Podiat[facility] Referred Provider Pain Management, [facility] Referred Provider Specialty Pain Medicin e [...] Problem Status W/U Status Risk Notes Problem [id number] Primary osteoarthrit is, left ankle and foot (M19.072) Active confirmed Problem Left foot pain (M79.672) Active confirmed Vital Signs Heart Rate 82 /min 06/22/2024 Temperature 97.8 degrees Fahrenheit 06/22/2024 Respiratory Rate 16 /min 06/15/2024 Oximetry 99 % 06/22/2024 Height 66 in 06/22/2024 Weight 220 lbs 06/15/2024 BMI 35.51 kg/m2 06/15/2024 Encounters Encounter Location Date Provider Diagnosis [facility] ([facility]) [address] [place] [address] [place] [address] 06/22/2024 Ratna Luke Primary osteoarthritis, left ankle and foot M19.072 [facility] (PODIATRY) [address] [place] [address] [place] [address] 06/15/2024 Ratna Luke Left foot pain M79.672 and Primary osteoarthritis, left ankle and foot M19.072 Assessments Encounter Date Diagnosis (ICD Code) Assessment Notes Treatment Notes Treatment Clinical Notes Section Notes 06/15/2024 Primary osteoarthriti s, left ankle and foot (ICD-10 - M19.072) Patient is a pleasant 69-year-old female with multiple orthopedic issues including bilateral knee arthritis and bilateral foot arthritis. She underwent right midfoot fusion in [place] several years ago and is very happy [...] the CT and DEXA scan are obtained 06/15/2024 Left foot pain (ICD-10 - M79.672) 06/22/2024 Primary osteoarthriti s, left ankle and foot (ICD-10 - M19.072) Patient is a 69-year-old female who underwent right second and third tarsometatarsal joint and naviculocuneiform joint fusion in [place] years ago. She is having similar symptoms [...] End Date MEDIC[place] [address] [place] [address] [id number] Bettina Reed Self - patient is the insured O [address] [place], [place] [id number] Bettina Reed Self - patient is the insured Medical (General) History Medical History History ICD Code acid reflux osteoarthritis varicose veins Surgical History Surgery Date(Month/Year) right foot surgery [facility] 2017 lumbar surgery 2015 lobectomy 2014 lithotripsy 2013 Hysterectomy 1997
--- OUTSIDE RECORDS SUMMARY | 2024-12-14 10:43 | XMS_ITS | Encounter Summary ---
Author Organization [facility] Address [address] [place] [address] Care Team Providers Care Perfect Binder Operator Name Role Phone Peter Rush Primary Care Provider Source Comments In the event this information is protected by the Federal Confidentiality of Alcohol and Drug AbusePatient Records regulations: The Federal rules restrict any use of the information to criminally investigate or prosecute any alcohol or drug abuse patient.[facility] Encounter Details Date Type Department Care Team (Late st Contact Info) Description 02/19/2017 Get Medical Advice Orthopaedics [address] [place] [id number] Rajesh Ulrich MD [address] [place] [address] RE: Non-Urgent Medical Question Social [...] on filedocumented in this encounter Care Teams Perfect Binder Operator Relationship Specialty Start Date End Date Peter Rush DO PCP - General Internal Medicine 09/11/12 documented as of this encounter
--- OUTSIDE RECORDS SUMMARY | 2024-12-14 10:43 | XMS_ITS | Encounter Summary ---
Author Organization [facility] Address [address] [place] [address] Care Team Providers Care Cooker Soda Name Role Phone Peter Rush DO Primary Care Provider [phone] Source Comments In the event this information is protected by the Federal Confidentiality of Alcohol and Drug AbusePatient Records regulations: The Federal rules restrict any use of the information to criminally investigate or prosecute any alcohol or drug abuse patient.[facility] Encounter Details Date Type Department Care Team (Late st Contact Info) Description 04/08/2013 Patient Msg Medical Records [address] [place] [address] Provider, [facility] Medical Procedure Social [...] on filedocumented in this encounter Care Teams Cooker Soda Relationship Specialty Start Date End Date Peter Rush DO PCP - General Internal Medicine 09/11/12 documented as of this encounter
--- OUTSIDE RECORDS SUMMARY | 2024-12-14 10:43 | XMS_ITS | Encounter Summary ---
Author Organization [facility] Address [address] [place] [address] Care Team Providers Care Curing Press Operator Name Role Phone Peter Rush Mela CHAIREZ Primary Care Provider [phone] Source Comments In the event this information is protected by the Federal Confidentiality of Alcohol and Drug AbusePatient Records regulations: The Federal rules restrict any use of the information to criminally investigate or prosecute any alcohol or drug abuse patient.[facility] Encounter Details Date Type Department Care Team (Late st Contact Info) Description 04/07/2021 Get Medical Advice Urology [address] [place], [place] [phone] Jannet Galindo, SPINE NURSE.TANK HOUSE SUPERVISOR [address] [place], [place] [phone] Non-Urgent Medical Question Social History Tobacco Use [...] N ot on file 04/30/2020 Data from: [email or web address] Last address used for calculation Not on [...] on filedocumented in this encounter Care Teams Curing Press Operator Relationship Specialty Start Date End Date Peter Rush DO PCP - General Internal Medicine 09/11/12 documented as of this encounter
== END 2024-12-14 10:41 | disposition home or self-care (01) ==
LOC: RAD 10:40
PROVIDERS: PCP Internal Medicine; Visit Provider Orthopaedic Surgery
DX: M25.561 Pain in right knee (principal); M25.562 Pain in left knee; G89.29 Other chronic pain
CPT/HCPCS: 72170; 73564

== ENCOUNTER 2024-12-22 10:09 | Outpatient (OUT) | payer MEDICARE, OTHER, SELFPAY ==
--- OUTSIDE RECORDS SUMMARY | 2024-12-22 10:27 | XMS_ITS | CCD ---
Author Organization [facility] CliniSyms Care Team Providers Care Vegetable Thinner Name Role Phone VICTOR MANUEL, DR COBIAN [...] Care Provider YOLANDA STAFFORD Attending Unavailabl e BALL, PETER E Primary Care Unavailable YOLANDA STAFFORD Referring Unavailabl e BALL, PETER E Primary Care Unavailable JUSTINA GUTIERREZ, YOLANDA Referring Unavailabl e BALL, PETER E Primary Care Unavailable PETER RUSH Primary Care Physician [phone] Cristian CINTRON Attending Unavailable VICTOR MANUEL, PETER Referring Unavailable NILL, Cristian Hanson Attending Unavailable NILL, Cristian Hanson Attending Unavailable Joseph WILSON, Felisa Gauthier Attending Unavailable Joseph WILSON, Felisa Gauthier Attending Unavailable Peter Rush DO Primary Care Provider Serge WILSON, Randy Rizo Attending Provider Allergies Allergy Classification Reported Allergen(s) Allergy Type Date of Onset Reaction(s) Facility (4 sources) Morphine; Translations: [MORPHINE] Drug Allergy 3 [facility] Repository (7 sources) Morphine; Translations: [morphine] Drug Allergy 3 Other: See Comments, Patient reported problems (finding) [facility] (3 sources) Latex; Translations: [LATEX] Drug Allergy 3 Rash [facility] (1 source) patient allergy list reviewed by nurse or physicia Propensity to adverse reactions 8 Comment:Done [employer] Other Medications Current Medications Medication Drug Class(es) Dates Sig (Normalized) Sig (Original) estradiol 0.1 mg/ml vaginal cream (10 sources) Estrogen Start: 01-06-2024 estradiol 0.1 mg/g Vag Crm 1 gm, Vaginal, MonFri, Refill(s) 0 Start Date: 01/06/24 Status: Ordered Start: 11-24-2023 End: 11-24-2023 Estradiol 0.01 % (0.1 mg/gra m) cream Active 1 GM VAGINAL Twice a Week 42.5 90 November 24, 2023 5:23pm Complies with drug therapy Start: 08-31-2022 Estradiol 0.1 MG/GM 1 gram [...] Vaginal twice weekly for 30 days Active meloxicam 15 mg oral tablet (1 source) Nonsteroidal Anti-inflammatory Drug Start: 12-14-2024 take 1 tablet by mouth once daily Meloxicam 15 mg tablet Active 15 MG PO Daily December 14, 2024 12:00am Complies with drug therapy omeprazole 40 mg delayed release oral capsule (5 sources) Proton Pump Inhibitor Start: 12-23-2023 End: 12-14-2024 take 1 capsule by mouth once daily omeprazole 40 mg Cap-DR 40 mg = 1 cap(s), Oral, Daily, Refills(s) 0 Start Date: 01/06/24 Status: Ordered Start: 02-26-2013 take 1 capsule by mo [facility] once daily omeprazole (PRILOSEC) 10 [...] Date: 03/18/24 Status: Ordered polyethylene glycol 3350 450551 mg / potassium chloride 2970 mg / sodium bicarbonate 6740 mg / sodium chloride 5860 mg / sodium sulfate 54315 mg powder for oral solution (1 source) [...] on above: Take 1 tablet by kira once daily. azithromycin 250 mg oral tablet (4 sources) Macrolide Antimicrobial Start: 07-17-2024 End: 12-14-2024 Azithromycin 250 mg tablet Discontinued 250 MG PO .COMPLEX 6 5 July 17, 2024 1:00am December 14, 2024 11:19am 2 tabs on first day followed by 1 tab on days 2-5 Start: 08-06-2022 Azithromycin 2 50 MG as directed Orally daily for 5 days Jul, Not-Taking/PRN Bifidobacterium Infantis (2 sources) Bifidobacterium infantis (ALIGN ORAL) Take by mouth. 0 Active Comment on above: Take by mouth. biotin 5 mg disintegrating oral tablet (2 sources) biotin 5,000 mcg ODT Take by mouth. 0 Active Comment on above: Take by mouth. celecoxib 200 mg oral capsule (5 sources) Nonsteroidal Anti-inflammatory Drug Start: 024 End: 025 take 1 capsule by mouth once daily as needed for pain Celecoxib 200 mg capsule Discontinued 0 .ROUTE .COMPLEX September 01, 2024 5:19pm December 14, 2024 11:19am TAKE 1 CAPSULE ORALLY DAILY NEEDED FOR PAIN FOR 30 DAYS Start: 12-28-2023 End: 02-22-2024 take 1 capsule by mouth once daily celecoxib 200 mg Cap 200 mg = 1 cap(s), Oral, Daily, Refills(s) 0 Start Date: 01/27/24 Status: Ordered cholecalciferol 0.05 mg oral tablet (2 sources) Vitamin D take 1 tablet by mouth once daily cholecalciferol (VITAMIN D3) 50 mcg (2,000 unit) tablet Take 2,000 Units by mouth once daily. 0 Active Comment on above: Take 2,000 Units by mouth once daily. ciprofloxacin 500 mg oral tablet (6 sources) Quinolone Antimicrobial Start: 013 take 1 tablet by mouth every twelve [...] above: Take by mouth once d aily. doxycycline hyclate 100 mg oral capsule (1 source) Tetracycline-clas s Drug Start: 4 End: 5 take 1 capsule by mouth twice daily Doxycycline Hyclate 100 mg capsule Discontinued 100 MG PO Twice daily 14 May 19, 2024 1:00am December 14, 2024 11:19am KRILL OIL ORAL (2 sources) take 350 [...] kidney] Onset: 3 04-21-2013 Episodic Esophageal disorders (9 sources) Gastroesophageal reflux disease; Translations: [Gastro-esophageal reflux [...] osteoarthritis, unspecified ankle and foot] Onset: 7 02-08-2017 Chronic Other and unspecified benign neoplasm (8 sources) Hemangioma of intra-abdominal structures; Translations: [Cavernous [...] right knee] Episodic Other non-traumatic joint disorders (3 sources) Pain in left knee; Translations: [Left knee pain] 12-23-2023 Episodic Other non-traumatic joint disorders (2 sources) Pain in right knee; Translations: [Pain in [...] Chronic Other nutritional; endocrine; and metabolic disorders (3 sources) Obesity; Translations: [Obesity, unspecified] 12-23-2023 Chronic Other nutritional; endocrine; and metabolic disorders (1 source) Simple obesity ; Translations: [Other obesity due to excess calories] Onset: 6 Chronic Other nutritional; endocrine; and metabolic disorders (2 sources) Obese class III 01-06-2024 Chronic Other screening for suspected conditions (not mental disorders or infectious disease) (6 sources) Patient encounter status; Translations: [Encounter for screening for malignant neoplasm of colon] Onset: 4 12-23-2023 Episodic Residual codes; unclassified (5 sources) Menopause present; Translations: [Asymptomatic menopausal state] [...] WILSON, Cristian Hanson Primary Care Physician - PETER RUSH DO This Is Your Medications List Contact [...] Reminders Reminders From: Patti Douglas LPN To: GARRETTN - Clinical; Sent: 03/04/2024 14:13:04 EDT Show up: 02/01/2034 07:00:00 EDT Subject: colonoscopy recall Due Date/Time: 03/03/2034 07:00:00 EDT Reminder/Recall Patient due for screening colonoscopy 03/03/2034. Normal [facility] CBC W Auto Differential pane l (Bld)on 09-26-2022 Basophils (Bld) [#/Vol] 0.04 10*3/uL Normal <0.11 [facility] Comment on above: Order Comment: Speci men Type: BLOOD SPECIMEN Ordering Facility: [facility] Address: [address] [address] Performed By: #### 5 7021-8 #### [facility] CLIA [id number] [place] [address] [place] Basophils/100 WBC (Bld) 0.7 % Normal [facility] Comment on above: Order Comment: Speci men Type: BLOOD SPECIMEN Ordering Facility: [facility] Address: [address] [address] Performed By: #### 5 7021-8 #### [facility] CLIA [id number] [place] [address] [place] Differential cell count method Nom (Bld) Auto Normal [facility] Comment on above: Order Comment: Speci men Type: BLOOD SPECIMEN Ordering Facility: [facility] Address: [address] [address] Performed By: #### 5 7021-8 #### [facility] CLIA [id number] [address] [place] [address] [place] Eosinophils (Bld) [#/Vol] 0.04 10*3/uL Normal <0.46 [facility] Comment on above: Order Comment: Speci men Type: BLOOD SPECIMEN Ordering Facility: [facility] Address: [address] [address] Performed By: #### 5 7021-8 #### [facility] CLIA [id number] [address] [id number] [place] Eosinophils/100 WBC (Bld) 0.7 % Normal [facility] Comment on above: Order Comment: Speci men Type: BLOOD SPECIMEN Ordering Facility: [facility] Address: [address] [address] Performed By: #### 5 7021-8 #### [facility] IA [id number] [address] [place] [address] [place] Erythrocyte distribution width (RBC) [Ratio] 12.2 % Normal 11.5-15.0 [facility] Comment on above: Order Comment: Speci men Type: BLOOD SPECIMEN Ordering Facility: [facility] Address: [address] [address] Performed By: #### 5 7021-8 #### [facility] IA [id number] [address] [place] [address] [place] Hematocrit (Bld) [Volume fraction] 43.6 % Normal 36.0-46.0 [facility] Comment on above: Order Comment: Speci men Type: BLOOD SPECIMEN Ordering Facility: [facility] Address: [address] [place] [address] Performed By: #### 5 7021-8 #### [facility] IA [id number] [place] [address] [place] Hemoglobin (Bld) [Mass/Vol] 14.4 g/dL Normal 11.5-15.5 [facility] Comment on above: Order Comment: Speci men Type: BLOOD SPECIMEN Ordering Facility: [facility] Address: [address] [place] [address] Performed By: #### 5 7021-8 #### [facility] IA [id number] [address] [place] [address] [place] Immature granulocytes (Bld) [#/Vol] 10*3/uL Normal <0.10 [facility] Comment on above: Order Comment: Speci men Type: BLOOD SPECIMEN Ordering Facility: [facility] Address: [address] [place] [address] Performed By: #### 5 7021-8 #### [facility] IA [id number] [place] [address] [place] Immature granulocytes/100 WBC (Bld) 0.3 % Normal [facility] Comment on above: Order Comment: Speci men Type: BLOOD SPECIMEN Ordering Facility: [facility] Address: [address] [address] Performed By: #### 5 7021-8 #### [facility] IA [id number] [place] Lymphocytes (Bld) [#/Vol] 1.48 10*3/uL Normal 1.00-4.00 [facility] Comment on above: Order Comment: Speci men Type: BLOOD SPECIMEN Ordering Facility: [facility] Address: [address] [address] Performed By: #### 5 7021-8 #### [facility] IA [id number] [place] [address] Lymphocytes/100 WBC (Bld) 25.8 % Normal [facility] Comment on above: Order Comment: Speci men Type: BLOOD SPECIMEN Ordering Facility: [facility] Address: [address] [address] Performed By: #### 5 7021-8 #### [facility] IA [id number] [place] [address] [place] MCH (RBC) [Entitic mass] 30.5 pg Normal 26.0-34.0 [facility] Comment on above: Order Comment: Speci men Type: BLOOD SPECIMEN Ordering Facility: [facility] Address: [address] [address] Performed By: #### 5 7021-8 #### [facility] IA [id number] [address] [place] MCHC (RBC) [Mass/Vol] 33.0 g/dL Normal 30.5-36.0 [facility] Comment on above: Order Comment: Speci men Type: BLOOD SPECIMEN Ordering Facility: [facility] Address: [address] [address] Performed By: #### 5 7021-8 #### [facility] IA [id number] [place] [address] [place] MCV (RBC) [Entitic vol] 92.4 fL Normal 80.0-100.0 [facility] Comment on above: Order Comment: Speci men Type: BLOOD SPECIMEN Ordering Facility: [facility] Address: [address] Performed By: #### 5 7021-8 #### [facility] CLIA [id number] [address] [place] [address] [place] Monocytes (Bld) [#/Vol] 0.55 10*3/uL Normal <0.87 [facility] Comment on above: Order Comment: Speci men Type: BLOOD SPECIMEN Ordering Facility: [facility] Address: [address] Performed By: #### 5 7021-8 #### [facility] IA [id number] [address] [place] [address] [place] Monocytes/100 WBC (Bld) 9.6 % Normal [facility] Comment on above: Order Comment: Speci men Type: BLOOD SPECIMEN Ordering Facility: [facility] Address: [address] Performed By: #### 5 7021-8 #### [facility] IA [id number] [address] [place] [address] [place] Neutrophils (Bld) [#/Vol] 3.61 10*3/uL Normal 1.45-7.50 [facility] Comment on above: Order Comment: Speci men Type: BLOOD SPECIMEN Ordering Facility: [facility] Address: [address] Performed By: #### 5 7021-8 #### [facility] CLIA [id number] [address] [place] [address] [place] Neutrophils/100 WBC (Bld) 62.9 % Normal [facility] Comment on above: Order Comment: Speci men Type: BLOOD SPECIMEN Ordering Facility: [facility] Address: [address] Performed By: #### 5 7021-8 #### [facility] CLIA [id number] [address] [place] [address] [place] Nucleated RBC (Bld) [#/Vol] 10*3/uL Normal <0.01 [facility] Comment on above: Order Comment: Speci men Type: BLOOD SPECIMEN Ordering Facility: [facility] Address: [address] [address] Performed By: #### 5 7021-8 #### [facility] CLIA [id number] [address] [place] [address] [place] Nucleated RBC/100 WBC (Bld) [Ratio] 0.0 /100 WBC Normal [facility] Comment on above: Order Comment: Speci men Type: BLOOD SPECIMEN Ordering Facility: [facility] Address: [address] [address] Performed By: #### 5 7021-8 #### [facility] CLIA [id number] [place] [address] [place] Platelet mean volume (Bld) [Entitic vol] 9.2 fL Normal 9.0-12.7 [facility] Comment on above: Order Comment: Speci men Type: BLOOD SPECIMEN Ordering Facility: [facility] Address: [address] [address] Performed By: #### 5 7021-8 #### [facility] CLIA [id number] [address] [place] [address] [place] Platelets (Bld) [#/Vol] 267 10*3/uL Normal 150-400 [facility] Comment on above: Order Comment: Speci men Type: BLOOD SPECIMEN Ordering Facility: [facility] Address: [address] [address] Performed By: #### 5 7021-8 #### [facility] CLIA [id number] [address] [place] [address] [place] RBC (Bld) [#/Vol] 4.72 10*6/uL Normal 3.90-5.20 [facility] Comment on above: Order Comment: Speci men Type: BLOOD SPECIMEN Ordering Facility: [facility] Address: [address] Performed By: #### 5 7021-8 #### [facility] IA [id number] [address] [place] [address] [place] WBC (Bld) [#/Vol] 5.74 10*3/uL Normal 3.70-11.00 [facility] Comment on above: Order Comment: Speci men Type: BLOOD SPECIMEN Ordering Facility: [facility] Address: [address] Performed By: #### 5 7021-8 #### [facility] CLIA [id number] [address] [place], [place] [id number] [place] [address] OF [facility] Comprehensive metabolic 2000 panelon 09-26-2022 Albumin [Mass/Vol] 4.6 g/dL Normal 3.9-4.9 [facility] Comment on above: Order Comment: Speci men Type: BLOOD SPECIMEN Ordering Facility: [facility] Address: [address] [address] Performed By: #### 2 4323-8 #### [facility] IA [id number] [address] [place] [address] [place] ALP [Catalytic activity/Vol] 89 U/L Normal 34-123 [facility] Comment on above: Order Comment: Speci men Type: BLOOD SPECIMEN Ordering Facility: [facility] Address: [address] [address] Performed By: #### 2 4323-8 #### [facility] IA [id number] [address] [place] [address] [place] ALT [Catalytic activity/Vol] 28 U/L Normal 7-38 [facility] Comment on above: Order Comment: Speci men Type: BLOOD SPECIMEN Ordering Facility: [facility] Address: [address] Performed By: #### 2 4323-8 #### [facility] IA [id number] [address] [place] [address] [place] Anion gap [Moles/Vol] 9 mmol/L Normal 9-18 [facility] Comment on above: Order Comment: Speci men Type: BLOOD SPECIMEN Ordering Facility: [facility] Address: [address] [address] Performed By: #### 2 4323-8 #### [facility] CLIA [id number] [address] [place] [address] [place] AST [Catalytic activity/Vol] 21 U/L Normal 13-35 [facility] Comment on above: Order Comment: Speci men Type: BLOOD SPECIMEN Ordering Facility: [facility] Address: [address] [address] Performed By: #### 2 4323-8 #### [facility] CLIA [id number] [place] [address] [place] Bilirubin [Mass/Vol] 0.5 mg/dL Normal 0.2-1.3 [facility] Comment on above: Order Comment: Speci men Type: BLOOD SPECIMEN Ordering Facility: [facility] Address: [address] [address] Performed By: #### 2 4323-8 #### [facility] IA [id number] [address] [place] [address] [place] Calcium [Mass/Vol] 9.7 mg/dL Normal 8.5-10.2 [facility] Comment on above: Order Comment: Speci men Type: BLOOD SPECIMEN Ordering Facility: [facility] Address: [address] Performed By: #### 2 4323-8 #### [facility] CLIA [id number] [address] [place] [address] [place] Chloride [Moles/Vol] 104 mmol/L Normal 97-105 [facility] Comment on above: Order Comment: Speci men Type: BLOOD SPECIMEN Ordering Facility: [facility] Address: [address] Performed By: #### 2 4323-8 #### [facility] CLIA [id number] [address] [place] [address] [place] CO2 [Moles/Vol] 29 mmol/L Normal 22-30 [facility] Comment on above: Order Comment: Aliai gentry Type: BLOOD SPECIMEN Ordering Facility: [facility] Address: [address] [address] Performed By: #### 2 4323-8 #### [facility] CLIA [id number] [address] [place] [address] [facility] Creatinine [Mass/Vol] 0.68 mg/dL Normal 0.58-0.96 [facility] Comment on above: Order Comment: Vineet men Type: BLOOD SPECIMEN Ordering Facility: [facility] Address: [address] [address] Performed By: #### 2 4323-8 #### [facility] CLIA [id number] [address] [place], [place] [address] [place] [address] OF [facility] ESTIMATED GLOMERULAR FILTRATION RATE 97 mL/min/1.73m??? Normal >=60 [facility] Comment on above: Order Comment: Aliai men Type: BLOOD SPECIMEN Ordering Facility: [facility] Address: [address] [place] [address] Result Comment: Barbara mated Glomerular Filtration Rate [...] GFR. Performed By: #### 2 4323-8 #### [facility] CLIA [id number] [address] [place] [address] [facility] Glucose [Mass/Vol] 98 mg/dL Normal 74-99 [facility] Comment on above: Order Comment: Aliai gentry Type: BLOOD SPECIMEN Ordering Facility: [facility] Address: [address] [address] Result Comment: The [employer] (ADA) provides guidance for cutoff [...] Standards of Medical Care in Diabetes 2016, [employer]. Diabetes Care. 2016.39(Suppl 1). Performed By: #### 2 4323-8 #### [facility] CLIA [id number] [address] [place] [address] [place] Potassium [Moles/Vol] 4.6 mmol/L Normal 3.7-5.1 [facility] Comment on above: Order Comment: Speci men Type: BLOOD SPECIMEN Ordering Facility: [facility] Address: [address] [place] [address] Performed By: #### 2 4323-8 #### [facility] IA [id number] [address] [place] [address] [place] Protein [Mass/Vol] 7.4 g/dL Normal 6.3-8.0 [facility] Comment on above: Order Comment: Aliai gentry Type: BLOOD SPECIMEN Ordering Facility: [facility] Address: [address] [place] [address] Performed By: #### 2 4323-8 #### [facility] IA [id number] [address] [place] [address] [place] Sodium [Moles/Vol] 142 mmol/L Normal 136-144 [facility] Comment on above: Order Comment: Speci men Type: BLOOD SPECIMEN Ordering Facility: [facility] Address: [address] [place] [address] Performed By: #### 2 4323-8 #### [facility] IA [id number] [place] [address] [place] Urea nitrogen [Mass/Vol] 17 mg/dL Normal 7-21 [facility] Comment on above: Order Comment: Speci men Type: BLOOD SPECIMEN Ordering Facility: [facility] Address: [place] [address] Performed By: #### 2 4323-8 #### [facility] CLIA [id number] [address] [facility] [address] [place] [address] [facility] No Panel Informationon 09-26 [facility] US ABD RIGHT UPPER QUADRANTo n 09-26-2022 US ABD RIGHT UPPER QUADRANT * * *Final Report* * * DATE OF EXAM: Sep 26 2022 1:18PM [facility] 1032 - US ABD RIGHT UPPER QUADRANT [...] and could represent the previously described hemangiomas. Chlorination Operator: DARRELL Transcribe Date/Time: Oct 03 2022 6:03A Dictated by : NAS DENSON MD This examination was interpreted and the report reviewed and electronically signed by: NAS DENSON MD on Oct 03 2022 6:08AM EST [id number] Normal [facility] US ABD SPLEEN -NBon 09-27-19 [...] and could represent the previously described hemangiomas. Chlorination Operator: DARRELL Transcribe Date/Time: Oct 03 2022 6:03A Dictated by : NAS DENSON MD This examination was interpreted and the report reviewed and electronically signed by: NAS DENSON MD on Oct 03 2022 6:08AM EST [id number] [facility] 09-25-2022 [facility] Office Visit (KEYSHAWN ) BETTINA REED ([id number]) 1955 F Date Time Provider Department 09/25/22 1:30 PM YOLANDA STAFFORD During your visit today, we recorded the following information about you: Weight Height 100.7 kg 1.676 m Yolanda Ta MD 09/25/2022 2:21 PM Signed Hepatology [facility] consult by Dr Rush for liver lesions [...] distress HEENT negative no icterus Lungs CTA alyssia COR rrm- Abdomen benign she had a [...] If you do not have a responsible haul driver (family member or friend) with you [...] Imodium, Ka (more content not included)... Normal [facility] HISTORY PHYSICALon HISTORY PHYSICAL HNO ID: [id number] Author: Yolanda Gutierrez MD Service: ? Author Type: Physician Type: HANDP Filed: 09/25/2022 2:21 PM Note Text[facility] by Dr Rush for liver lesions [...] distress HEENT negative no icterus Lungs CTA alyssia COR rrm- Abdomen benign she had a [...] Yolanda Walters MD cc dr Rush Normal [facility] CULTURE URINEon 01-11-2022 CULTURE URINE Culture Observations : MODERATE GROWTH OF MIXED GENITAL JESUS. NO POTENTIAL PATHOGENS SEEN. Normal [facility] Comment on above: Performed By: #### U RCX #### [facility] [address] [place] [address] Dr. aN Gonzales UA RANDOM W/MICROSCOPICon BACTERIA NONE SEEN Normal NONE SEEN The [facility] Comment on above: Performed By: #### U AMIC #### [facility] [address] [address] [address] Na Gonzales Bilirubin Ql (U) Negative Normal NEGATIVE The [facility] Comment on above: Performed By: #### U AMIC #### [facility] [address] [address] [address] Na Gonzales CAST NONE SEEN Normal NONE SEEN [facility] Comment on above: Performed By: #### U AMIC #### [facility] [address] [address] [address] Na Gonzales Clarity (U) CLEAR Normal CLEAR [facility] Comment on above: Performed By: #### U AMIC #### [facility] [address] [address] [address] Na Gonzales Color (U) LT. YELLOW Normal YELLOW [facility] Comment on above: Performed By: #### U AMIC #### [facility] [address] [place] [address] Dr. Na Gonzales Crystals LM Nom (Urine sed) NONE SEEN Normal NONE SEEN [facility] Comment on above: Performed By: #### U AMIC #### [facility] [address] [address] [address] Na Gonzales Epithelial cells LM Ql (Urine sed) NONE SEEN Normal NONE SEEN /RARE [facility] Comment on above: Performed By: #### U AMIC #### [facility] [address] [address] [address] Na Gonzalse Glucose Ql (U) Negative Normal NEGATIVE The [facility] Comment on above: Performed By: #### U AMIC #### [facility] [address] [address] [address] Na Gonzales Hemoglobin Ql (U) Negative Normal NEGATIVE The [facility] Comment on above: Performed By: #### U AMIC #### [facility] [address] [address] [address] Na Gonzales Ketones Ql (U) Negative Normal NEGATIVE The [facility] Comment on above: Performed By: #### U AMIC #### [facility] [address] [address] [address] Na Gonzales LEUKOCYTES SMALL Abnormal NEGATIVE [facility] Comment on above: Performed By: #### U AMIC #### [facility] [address] [address] [address] Na Gonzales MUCOUS NONE SEEN Normal NONE SEEN [facility] Comment on above: Performed By: #### U AMIC #### [facility] [address] [address] [address] Na Gonzales Nitrite Ql (U) Negative Normal NEGATIVE The [facility] Comment on above: Performed By: #### U AMIC #### [facility] [address] [address] [address] Na Gonzales pH (U) 6.0 [pH] Normal 5-9 [facility] Comment on above: Performed By: #### U AMIC #### [facility] [address] [address] [address] Na Gonzales RBC NONE SEEN Abnormal 0-2 [facility] Comment on above: Performed By: #### U AMIC #### [facility] [address] [address] [address] Na Gonzales SPEC GRAVITY 1.005 Normal 1.005-<=1.02 5 [facility] Comment on above: Performed By: #### U AMIC #### [facility] [address] [address] [address] Na Gonzales UA PROTEIN Negative Normal NEGATIVE/ TRACE [facility] Comment on above: Performed By: #### U AMIC #### [facility] [address] [address] [address] Na Gonzales Urobilinogen Qn (U) 0.2 {Irene'U}/dL Normal 0.2 - 1.0 [facility] Comment on above: Performed By: #### U AMIC #### [facility] [address] [address] [address] Na Gonzales WBC 0-2 Abnormal NONE SEEN [facility] Comment on above: Performed By: #### U AMIC #### [facility] [address] ABD/PELVIS WO CONon [...] DEMETRIS PATEL Date: 2021-04-06 18:26 Normal [facility] CULTURE STOOLon 02-22-2021 CULTURE STOOL Culture Observations : SALMONELLA CALD TO EDNACHIP FELIX LPN@1225/02/21/21/RK Culture Observations: [facility]02/21/21/RK Culture Observations: SENDING ISOLATE TO [facility] FOR SEROTYPING Isolate 1 Salmonella enterica ssp enterica Heavy growth of ORGANISM 1 Salmonella enterica ssp enterica ANTIBIOTIC M.I.C RX STATUS Ampicillin <=2 S F Ceftazidime <=1 S F Ceftriaxone <=1 S F Ciprofloxacin <=0.25 S F Levofloxacin <=0.12 S F Trimethoprim/Sulfamethoxazole <=20 S F Normal The [facility] Comment on above: Performed By: #### S TOOLCX #### [facility] [address] [address] [address] Na Gonzales CLOSTRIDIUM DIFFICILE PCRon 02-21-2021 C difficile Toxin Gene SHADI Negative Normal Negative [facility] Comment on above: Performed By: #### C DIFNAA #### [facility] [address] [address] [address] Na Gonzales Vital Signs Date Time Vital Sign Value Performing Clinician Facility 12-14-2024 11: Body height 167.64 cm LAFASO DO Work Phone: [facility] 12-14-2024 11: Body mass index (BMI) [Ratio] 35.8 kg/m2 LAFASO DO Work Phone: [facility] 12-14-2024 11:13 Body weight 100.75 kg LAFASO DO Work Phone: [facility] 12-14-2024 11:13-0400 Diastolic blood pressure 82 mm[Hg] Peter Ball DO Work Phone: [facility] 12-14-2024 11:13-0400 Systolic blood pressure 130 mm[Hg] Peter Ball DO Work Phone: [facility] 01-27-2024 15:15-0400 Blood Pressure Location Critsian JARAMILLOL [facility] 01-27-2024 15:15-0400 Diastolic blood pressure 82 mm[Hg] Cristian NILL [facility] 01-27-2024 15:15-0400 Heart rate 76 /min Cristian JARAMILLOL [facility] 01-27-2024 15:15-0400 Respiratory rate 16 /min Cristian JARAMILLOL [facility] 01-27-2024 15:15-0400 Systolic blood pressure 120 mm[Hg] Cristian JARAMILLOL [facility] 12-23-2023 14:36-0400 Body height 167.64 cm [facility] 12-23-2023 14:36-0400 Body mass index (BMI) [Ratio] 35.2 kg/m2 [facility] 12-23-2023 14:36-0400 Body weight 98.93 kg [facility] 12-23-2023 14:36-0400 Diastolic blood pressure 86 mm[Hg] [facility] 12-23-2023 14:36-0400 Heart rate 98 /min [facility] 12-23-2023 14:36-0400 Respiratory rate 12 /min [facility] 12-23-2023 14:36-0400 Systolic blood pressure 141 mm[Hg] [facility] 09-25-2022 13:20-0400 Body height 167.6 cm Yolanda Gutierrez MD Work Phone: [facility] 09-25-2022 13:20-0400 Body weight 100.7 kg Yolanda Gutierrez MD Work Phone: [facility] 08-26-2022 14:30-0400 Body height 166.37 cm Peter Ball Other [employer] Other 08-26-2022 14:30-0400 Body mass index (BMI) [Ratio] 36.44 kg/m2 Peter Ball Other [employer] Other 08-26-2022 14:30-0400 Body weight 100.88 kg Peter Ball Other [employer] Other 08-26-2022 14:30-0400 Diastolic blood pressure 78 mm[Hg] Peter Ball Other [employer] Other 08-26-2022 14:30-0400 Respiratory rate 12 /min Peter Ball Other [employer] Other 08-26-2022 14:30-0400 Systolic blood pressure 122 mm[Hg] Peter Ball Other [employer] Other Encounters Encounter Date Encounter Type Care Provider Facility Start: 12-14-2024 End: 12-14-2024 ambulatory Peter Ball DO Work Phone: [facility] Work Phone: Start: 12-14-2024 End: 12-14-2024 Patient encounter procedure Randy Rizo MD -[facility] Work Phone: Start: 10-11-2024 End: 10-11-2024 ambulatory Felisa Ruiz MD Facility: [facility] Start: 07-12-2024 End: 07-12-2024 ambulatory Felisa Ruiz MD Facility: [facility] Start: 03-24-2024 End: 03-24-2024 ambulatory Cristian CINTRON Facility:[facility] Start: 03-24-2024 End: 03-24-2024 Patient encounter procedure Cristian Hanson ABDULAZIZ [facility] Start: 03-03-2024 End: 03-03-2024 ambulatory Cristian JARAMILLOL Facility:CD:[id number] Start: 01-27-2024 End: 01-27-2024 ambulatory PETER RUSH Facility:[facility] Start: 01-27-2024 End: 01-27-2024 Patient encounter procedure Cristian JARAMILLOL [facility] Start: 12-26-2023 ambulatory Cristian CINTRON Facility:[facility] Start: 12-23-2023 End: 12-23-2023 ambulatory [facility] Work Phone: Start: 12-23-2023 End: 12-23-2023 Patient encounter procedure [facility] Work Phone: Start: 07-02-2023 End: 07-02-2023 ambulatory Peter Rush Other [place] [employer] Other Start: 07-02-2023 Telephone encounter Peter Rush [facility] Start: 09-26-2022 End: 09-27-2022 ambulatory [facility]OLANDA [facility] Start: 09-26-2022 End: 09-26-2022 Subsequent hospital visit by physician Brittany [facility] 2 Work Phone: [facility] Ultrasound Comment on above: Polyp of colon, unsp ecified part of colon, unspecified type [K63.5] Start: 09-25-2022 End: 09-25-2022 ambulatory YOLANDA GUTIERREZ Facility:[facility] Start: 09-25-2022 End: 09-25-2022 Patient encounter procedure Yolanda Gutierrez MD Work Phone: Gastroenterology Comment on above: Polyp of colon, unsp ecified part of colon, unspecified type (Primary Dx); Liver hemangioma Start: 08-31-2022 End: 08-31-2022 ambulatory Peter Rush Other [employer] Other Start: 08-31-2022 Telephone encounter Peter ARELLANO [facility] Start: 08-26-2022 End: 08-26-2022 ambulatory Peter Rush Other [place] [employer] Other Start: 08-26-2022 Patient encounter procedure Peter Rush MELVIN Rush [facility] Start: 01-11-2022 End: 01-12-[address] PETER RUSH Facility:[facility] Start: 04-06-2021 End: 04-07-[address] PETER RUSH Facility:[facility] Start: 02-20-2021 End: 02-20-[address] PETER RUSH Facility:[facility] Start: 04-04-2020 Adult health examination Peter Rush Other [employer] Other Procedures Date Procedure Procedure Detail Performing [...] Rush Other Excision of hemangioma Venkata jasmeet NILL Excision of lesion of liver Cristian NILL History of operative procedure on lumbar spinal structure Cristian CINTRON Lobectomy of lung Cristian JENNIFER RODAS Total abdominal hyst erectomy with bilateral salpingo-oophorectomy Cristian CINTRON Plan of Treatment Date Care Activity Detail Author Start: 09-26-2025 Diabetes Screening Diabetes Screenin g [facility] Start: 06-09-2023 Colonoscopy COLONOSCOPY [facility] Start: 06-09-2023 COLORECTAL CANCER SCREENING COLORECTAL CANCER SCREENING [facility] Start: 01-24-2023 Covid-19 Vaccine () Covid-19 Vaccine () [facility] Start: 01-24-2023 Influenza vaccination Influenza Vacc ine (#1) [facility] Start: 09-25-2022 End: 11-25-2022 CBC W Auto Differential panel - Blood CBC + DIFF Lab Routine Polyp of colon, unspecified part of colon, unspecified type Liver hemangioma Expected: 09/25/2022, Expires: 11/25/[address] [facility] Work Phone: Comment on above: Expected: 09/25/2022 , Expires: 11/25/2022 Start: 09-25-2022 End: 11-25-2022 Comprehensive metabolic 2000 panel - Serum or Plasma COMP METABOLIC PANEL Lab Routine Polyp of colon, unspecified part of colon, unspecified type Liver hemangioma Expected: 09/25/2022, Expires: 11/25/[address] [facility] Work Phone: Comment on above: Expected: 09/25/2022 , Expires: 11/25/2022 Start: 2022 ADVANCE DIRECTIVE DISCUSSION ADVANCE DIRECTIVE DISCUSSION [facility] Start: 2022 BONE DENSITY BONE DENSITY [facility] Start: 2022 Bone Density Screening Bone Density Screening [facility] Start: 2022 Pneumococcal Vaccine : 65+ (1 - PCV) Pneumococcal Vaccine: 65+ (1 - PCV) [facility] Start: 2022 PNEUMOCOCCAL: 65+ (1 - PCV) PNEUMOCOCCAL: 65+ (1 - PCV) [facility] Start: 05-26-2022 DEPRESSION ASSESSMENT DEPRESSION ASS ESSMENT [facility] Start: 09-29-2020 COVID-19 VACCINE (2 - Booster for Roe series) COVID-19 VACCINE (2 - Booster for Roe series) [facility] Start: 04-26-2018 DIABETES SCREEN DIABETES SCREEN [facility] Start: 2017 RSV Vaccine (1 - 1-d ose 60+ series) RSV Vaccine (1 - 1-dose 60+ series) [facility] Start: 2007 SHINGRIX VACCINE (1 of 2) SHINGRIX VACCINE (1 of 2) [facility] Start: 2002 COLOGUARD (FIT-DNA) COLOGUARD (FIT-D NA) [facility] Start: [address] COLONOGRAPHY [facility] Start: 2002 FECAL OCCULT BLOOD FECAL OCCULT BLOO D [facility] Start: 2002 Lipid 1996 panel - S fernando or Plasma Lipid Screening [facility] Start: 2002 LIPID SCREEN LIPID SCREEN [facility] Start: 2002 SIGMOIDOSCOPY SIGMOIDOSCOPY [facility] Start: 1997 Mammography [facility] Start: 1976 Urine microalbumin profile [facility] Start: 1975 HEPATITIS C SCREENING HEPATITIS C SC REENING [facility] Start: 1975 HIV SCREENING HIV SCREENING [facility] End: 09-26-2023 COLONOSCOPY DIAGNOSTIC COLONOSCOPY DIAGNOSTIC Endoscopy Routine Polyp of colon, unspecified part of colon, unspecified type Liver hemangioma 1 Occurrences starting 09/25/2022 until 09/26/[address] [facility] Work Phone: Comment on above: 1 Occurrences starti ng 09/25/2022 until 09/26/2023 End: 10-25-2023 US ABD RIGHT UPPER QUADRANT US ABD RIGHT UPPER QUADRANT Radiology Routine Polyp of colon, unspecified part of colon, unspecified type Liver hemangioma 1 Occurrences starting 09/25/2022 until 10/25/[address] [facility] Work Phone: Comment on above: 1 Occurrences starti ng 09/25/2022 until 10/25/2023 XR Knee - bilateral 4 Views [facility] XR Knee - right 4 Views [facility] XR Pelvis 1 or 2 Views [facility] Immunizations Immunization Date Immunization Notes Care Provider Berkley mandelmartha 04-09-2022 influenza, high dose seasonal, preservative-free Peter Rush Other [employer] Other 04-09-2022 influenza virus vaccine, split virus (incl. purified surface antigen) Peter Rush Other [employer] Other 04-09-2022 influenza virus vaccine, unspecified formulation Ultra 2 Work Phone: [facility] 03-24-2021 influenza virus vaccine, split virus (incl. purified surface antigen) Peter Rush Other [facility] [employer] Other 03-24-2021 influenza virus vaccine, unspecified formulation [facility] 08-04-2020 COVID-19 Vaccine Roe - Documentation Purposes Only Peter Rush Other [facility] 02-23-2017 tetanus and diphther ia toxoids, adsorbed, preservative free, for adult use (5 Lf of tetanus toxoid and 2 Lf of diphtheria toxoid) Peter Rush Other [facility] 03-15-2016 tetanus and diphther ia toxoids, adsorbed, preservative free, for adult use (5 Lf of tetanus toxoid and 2 Lf of diphtheria toxoid) Peter Rush Other [facility] Payers Date Payer Category Payer Unknown [id number] 2022 Unknown [id number] 2022 Medicare [id number] 2022 Medicare [id number] 1959 Unknown [id number] 1957 Unknown [id number] 1957 Unknown [id number] 1957 Unknown [id number] 1957 Unknown [id number] 1957 Unknown [id number] 1957 Unknown [id number] 1957 Unknown [id number] 1957 Unknown [id number] Private Health Insurance [employer] [id number] Social History Date Type Detail Facility Start: 09-02-2018 End: 09-25-2022 Sex Assigned At [facility] Start: 08-24-2013 End: 03-23-2024 Tobacco smoking status NDIS Never smoked tobacco [facility] Start: 08-24-2013 Tobacco use and exposure Smokeless tobacco non-user [facility] Start: 09-02-2018 Alcohol intake Current drinke r of alcohol (finding) [facility] Start: 08-24-2013 Alcohol Comment occ. [facility] Start: 1955 [facility] Start: 09-02-2018 End: 09-25-2022 History of Social function [facility] National Score (1-100), lower number is lower risk 67 [facility] Start: 04-11-2021 Gender identity Identifies as female gender (finding) [facility] Start: 11-24-2023 Tobacco smoking stat us NDIS Ex-smoker (finding) [facility] Sex Female (finding) [facility] Procedure Code Equipment Code Equipment Origin al Text Equipment Identifier Dates [id number] Implant - Crushed Cancellous 15cc [id number] Start: 07-19-2016 Comment on above: Description: ONE-OF- A-KIND IMPLANT - Crushed Cancellous 15cc. Brought into room at 0840. Handed sterily to field by Donovan Christensen RN to Abigail Hayes TRACTOR ENGINE ASSEMBLER at 1015. Also handled by Moe Ulrich MD, and Abigail Carey MD. No preparation required. Plate Lcp Long T Stainless Steel 61mm Bone 2 Hole Variable Angle Fusion - [id number] Start: 07-19-2016 Screw Lcp 2.7mm T8 Stainless Steel 22mm Bone Variable Angle Lock Self Tap - [id number] Start: 07-19-2016 Washer Surfix 3.5mm Stainless Steel Orthopedic Lock Midfoot - [id number] Start: 07-19-2016 Functional Status Date Assessment Result Facility 03-24-2024 Functional Status N/A [facility] [place] 01-27-2024 Functional Status N/A [facility] [place] Clinical Notes 08-26-2022 to 01-27-2024 Patient InstructionsYolanda [...] If you do not have a responsible haul driver (family member or friend) with you [...] If you do not have a responsible haul driver (family member or friend) with you to take you home, your exam cannot be done with sedation and will be cancelled. Please bring a list of all of your current medications, including any Hwly-lhx-Yqauxrl medications with you. Medications If you take [...] exam. 2 04/2019 documented in this encounter [facility] 09-25-2022 History and physical note Hepatology [facility] consult by Dr Rush for liver lesions [...] distress HEENT negative no icterus Lungs CTA alyssia COR rrm- Abdomen benign she had a [...] be of further assistance to you Sincerely Yolanda WaMD Yolanda Camarillo MD cc dr Rush documented in this encounter [facility] 08-31-2022 Evaluation note Encounter Date Diagnosis Assessment Notes Aug, Menopause (ICD-10 - Z78.0) [employer] Other 04-03-2023 Evaluation note* Encounter Date Diagnosis [...] and consequences of not detecting early cancer [employer] Other Evaluation + Plan note No data available for this section [facility] Evaluation note* Diagnosis Polyp of colon, unspecified part of colon, unspecified type- Primary Liver hemangioma Hemangioma of intra-abdominal structures documented in this encounter [facility] note* Diagnosis Polyp of colon, unspecified part of colon, unspecified type Liver hemangioma Hemangioma of intra-abdominal structures documented in this encounter [facility] noteNo [facility] [employer] Other Evaluation note* Diagnosis Onset Date Resolution Status Cavernous hemangioma of liver acute Knee pain, bilateral acute Menopause acute Obesity acute Screening for colon cancer a cute Medicare annual wellness visit, initial noneactive Screening mammogram for breast cancer noneactive [facility] Work Phone: Evaluation noteNo assessment information available [facility] Work Phone: History general Narrative - [...] History hysterectomy Hospitalization History c section, childbirth [facility] [employer] Other Hospital Discharge instructions No data available for this section [facility] Progress note No data available for this section [facility] Reason for referral (narrative)* Outpatient Procedure (Routine) - Authorized Specialty Diagnoses / Procedures Referred By Contac t Referred To Contact [facility] Diagnoses Polyp of colon, unspecified part of colon, unspecified type Liver hemangioma Procedures COLONOSCOPY DIAGNOSTIC COLONOSCOPY FLX DX W/COLLJ SPEC WHEN PFRMD Yolanda Stafford MD [address] [place] [address] [facility] [place] [address] Referral ID Status Reason Start Date Expiration Date Visits Requested Visits Authorized [id number] Authorized Auto-Generat ed Referral 09/25/2022 09/26/2023 1 1 * Diagnostic Procedure Only (Routine) - Authorized Specialty Diagnoses / Procedures Referred By Contac t Referred To Contact [facility] Diagnoses Polyp of colon, unspecified part of colon, unspecified type Liver hemangioma Procedures US ABD RIGHT UPPER QUADRANT US ABDOMINAL REAL TIME W/IMAGE LIMITED Yolanda Stafford MD [address] [place] [address] [facility] Referral ID Status Reason Start Date Expiration Date Visits Requested Visits Authorized [id number] Authorized Auto-Generat ed Referral 09/25/2022 10/25/2023 1 1 [facility] for referral (narrative)* Diagnostic Procedure Only (Routine) - Closed Specialty Diagnoses / Procedures Referred By Ernst t Referred To Contact [facility] Diagnoses Polyp of colon, unspecified part of colon, unspecified type Liver hemangioma Procedures US ABD RIGHT UPPER QUADRANT US ABDOMINAL REAL TIME W/IMAGE LIMITED Yolanda Stafford MD [address] [place] [address] [facility] [place] [address] Referral ID Status Reason Start Date Expiration Date V isits Requested Visits Authorized [id number] Closed Auto-Generate d Referral 09/25/2022 10/25/2023 1 1 [facility] for referral (narrative)No reason for referral information [facility] N[facility]* Diagnostic Procedure Only (Routine) - Closed Specialty Diagnoses / Procedures Referred By Contkerry t Referred To Contact [facility] Diagnoses Polyp of colon, unspecified part of colon, unspecified type Liver hemangioma Procedures US ABD RIGHT UPPER QUADRANT US ABDOMINAL REAL TIME W/IMAGE LIMITED Yolanda Stafford MD [address] [place], [place] [id number] [place] [address] Referral ID Status Reason Start Date Expiration Date V isits Requested Visits Authorized [id number] Closed Auto-Generate d Referral 09/25/2022 10/25/2023 1 1 [facility] Summary Purpose Family History Relationship Condition Age at Onset Recorded Date/T rakan brother Asthma Unknown father Malignant neoplasm Unknown Family history of lung cancer Unknown mother Family history of mental disorder Unknown Advance Directives Documents on File Type Date Recorded Patient Rating Clerk Expl anation Advance Directive(s) 10/13/2013 10:12 PM Advance Directive Response Recorded Date/ Time Advance Directives No December 22 2:21pm Chief Complaint and Reason for Visit Chief Complaint Wellness Reason for Visit Cavernous hemangioma of liver Knee pain, bilateral Menopause Obesity Screening for colon cancer Medicare annual wellness visit, initial Screening mammogram for breast cancer Chief Complaint Admit Date NEW ALYSSIA KNEE PAIN NX December 14, 2024 10: 40am Additional Source Comments INFORMATION SOURCE (unrecogn ized section and content) DATE CREATED AUTHOR 01/17/2022 [facility] DATE CREATED AUTHOR AUTHOR'S ORGANIZ ATION 09/27/2022 [facility] DATE CREATED AUTHOR AUTHOR'S ORGANIZ ATION 10/04/2022 [facility] DATE CREATED AUTHOR AUTHOR'S ORGANIZ ATION 03/26/2024 [facility] DATE CREATED AUTHOR AUTHOR'S ORGANIZ ATION 10/22/2024 [facility] REASON FOR VISIT (unrecogniz ed section and content) Reason Comments New Patient Source Comments (unrecognize d section and content) In the event this informatio n is protected by the Federal Confidentiality of Alcohol and Drug Abuse Patient Records regulations: The Federal rules restrict any use of the information to criminally investigate or prosecute any alcohol or drug abuse patient[facility] the event this information is protected by the Federal Confidentiality of Alcohol and Drug Abuse Patient Records regulations: The Federal rules restrict any use of the information to criminally investigate or prosecute any alcohol or drug abuse patient.[facility] Care Teams (unrecognized sec tion and content) Vegetable Thinner Relationship Specialty Start Date End Date Peter Rush DO PCP - General Internal Medicine 09/11/12 Vegetable Thinner Relationship Specialty Start Date End Date Peter Rush DO PCP - General Internal Medicine 09/11/12 Team Status: Active Member Role Status Dates Peter Rush DO Primary Care Provider Active Team Status: Inactive Member Role Status Dates Peter Rush DO Primary Care Provide r, Attending Provider Active Start: December 23, 2023 End: December 23, 2023 Team Status: Inactive Member Role Status Dates Peter Rush DO Primary Care Provider Active Start: December 14, 2024 End: December 14, 2024 Randy Valentine II, MD Attending Provider Active Start: December 14, 2024 End: December 14, 2024 Goals (unrecognized section and content) Goals may [...] BE BASED ON THE PRIMARY CLINICAL RECORDS. [facility]. provides no warranty or guarantee of the accuracy or completeness of information in this document.
--- NOTE | 2024-12-22 10:43 | PM.CN ---
Consult Note: HPI Data of Consult Patient: known to practice within the last 3 years Requesting Physician: Olivia Porter NP Primary Care Provider: Peter Rush, Consult Narrative Reason for consult: knee pain Narrative: Bettina Larios a pleasant 69 year old female presents for evaluation of chronic bilateral knee pain secondary to OA. Pt has failed to benefit from > 6 weeks of PT/HEP, heat, ice, tylenol, NSAIDs. Did not find benefit to steroidal injections or hyaluronic gel injections in the past, is not a surgical candidate at this time per Dr Valentine. pt recently underwent right and left genicular RFA, with >80% improvement on the right but 30% improvement on the left. TRACEY 14%. pain today 6-7/10 stabbing. utilizing meloxicam and voltaren gel as advised by orthopedics but is experincing edema to BLE and rash to BLE. cc:: CC: Olivia Porter NP [facility] PFS Medical History PONV (postoperative nausea and vomiting) ?R11.2 - Nausea with vomiting, unspecified (ICD-10) ?Z98.890 - Other specified postprocedural states (ICD-10) Liver lesion ?K76.9 - Liver disease, unspecified (ICD-10) Malignant neoplasm of colon ?C18.9 - Malignant neoplasm of colon, unspecified (ICD-10) Hepatic hemangioma ?D18.03 - Hemangioma of intra-abdominal structures (ICD-10) Obesity ?E66.9 - Obesity, unspecified (ICD-10) GERD (gastroesophageal reflux disease) ?K21.9 - Gastro-esophageal reflux disease without esophagitis (ICD-10) Surgical History H/O foot surgery ?Z98.890 - Other specified postprocedural states (ICD-10) History of lithotripsy ?Z98.890 - Other specified postprocedural states (ICD-10) History of total abdominal hysterectomy and bilateral salpingo-oophorectomy ?Z90.710 - Acquired absence of both cervix and uterus (ICD-10) ?Z90.722 - Acquired absence of ovaries, bilateral (ICD-10) ?Z90.79 - Acquired absence of other genital organ(s) (ICD-10) Hx of lumbosacral spine surgery ?Z98.890 - Other specified postprocedural states (ICD-10) H/O excision of hemangioma ?Z98.890 - Other specified postprocedural states (ICD-10) ?Z86.018 - Personal history of other benign neoplasm (ICD-10) H/O cystoscopy ?Z98.890 - Other specified postprocedural states (ICD-10) History of cholecystectomy ?Z90.49 - Acquired absence of other specified parts of digestive tract (ICD-10) H/O esophagogastroduodenoscopy ?Z98.890 - Other specified postprocedural states (ICD-10) H/O colonoscopy ?Z98.890 - Other specified postprocedural states (ICD-10) Family History Father Family history of cancer Other Atrial fibrillation Dementia Family history of stroke Parkinsons Social History Within the past year, how often did you have a drink containing alcohol: monthly or less Within the past year, how often did you have six or more drinks on one occasion: never Smoking status: Never smoker Second hand tobacco smoke exposure: No Non-prescribed substance use: denies use Previous occupational history: Retired Highest level of school completed/degree received: some college, no degree Meds Home Medications and Allergies Home Medications ?Medication ?Instructions ?Recorded ?Confirmed ?Type celecoxib 200 mg capsule 200 mg PO DAILY 02/20/24 11/15/24 History estradiol 0.01% (0.1 mg/gram) 1 appful vaginal DAILY 02/20/24 11/15/24 History vaginal cream aspirin 81 mg capsule 81 mg PO DAILY 03/03/24 11/15/24 History krill oil 500 mg capsule 500 mg PO DAILY 03/03/24 11/15/24 History Allergies Allergy/AdvReac Type Severity Reaction Status Date / Time morphine AdvReac Unknown Hypotension Verified 11/15/24 07:37 latex AdvReac Hives Verified 11/15/24 07:37 Latex, Natural Rubber AdvReac Hives Verified 11/15/24 07:37 Exam Narrative Exam Narrative: Psych-alert and oriented x 3.? Attentive and appropriate, constitutionally normal, displays normal mood and affect per situation.? There are no obvious deficits in memory, reasoning, or intellect. Extremities-lower extremities are warm with minimal edema and palpable pulses. Knee-examination of the bilateral knee reveals tenderness to palpation over the superior, inferior, lateral, and medial aspect of the knee.? Some swelling is noted without erythema. Pain is elicited with flexion and extension of the knee both actively and passively.? Some grinding is noted with these motions.? There is no notable ligamental laxity or instability.? Coordination remains intact.? Gait remains antalgic. Results Additional Findings Additional findings: If on a controlled substance or opioids, I have checked an [place] report on this patient and there are no aberrancies noted in the prescribing history.??If on a controlled substance or opioid a drug screen was completed and reviewed within the last year, and if there has not been a drug screen completed we ordered one today to monitor higher risk, state monitored pain medication use. As part of providing excellent, safe, comprehensive care, the following was completed at our patient's visit: 1. A medication reconciliation and review to ensure accurate knowledge of current/active medications, including asking our patients to inform us about any [id number] medications or herbal remedies/nutritional supplements/alternative remedies. 2. A review to specifically ensure our patients have had annual screening for screening for depression, screening for tobacco use, and screening for unhealthy alcohol use. For concerning screenings had a discussion with the patient, provided patient education, and recommended follow-up with primary care provider when appropriate. If patient noted with a risk of falling, they received education on strength, gait, and balance training to prevent future risk of falling. Portions of this note may have been carried over from the previous visit and updated as appropriate. Please note this office utilizes paper charting in addition to the electronic medical record. A list of current medications, vitals, and PMH is available there as the clinical staff outside of myself do not have access to [employer] charting during the clinic day operations. As part of providing quality comprehensive care the current medications, vitals, and PMH were reviewed in the paper chart. Assessment and Plan Assessment and Plan (1) Bilateral knee pain: (2) Osteoarthritis of knees, bilateral: Qualifiers: Osteoarthritis type: primary Qualified Code(s): M17.0 - Bilateral primary osteoarthritis of knee Plan continue f/u with orthopedics, advised to dc diclofenac gel due to rash/edema likely experiencing delayed response to genicular RFA f/u 6 weeks to evaluate response
== END 2024-12-22 10:10 | disposition home or self-care (01) ==
LOC: PM 10:09
PROVIDERS: PCP Internal Medicine; Visit Provider Nurse Practitioner
DX: M25.561 Pain in right knee (principal); M25.562 Pain in left knee; M17.0 Bilateral primary osteoarthritis of knee
CPT/HCPCS: G0463

== ENCOUNTER 2025-02-02 10:12 | Outpatient (OUT) | payer MEDICARE, OTHER, SELFPAY ==
--- OUTSIDE RECORDS SUMMARY | 2024-06-15 06:00 | XMS_ITS ---
Author Organization [facility] [place] Address [address] [place] [address] Care Team Providers Care Baby Formula Worker Name Role Phone Peter Rush DO Primary Care Provider Javier Fontaine [phone] Allergies Allergen (clinical drug ingredient) Drug/Non Drug [...] Problem Status W/U Status Risk Notes Problem [id number] Primary osteoarthrit is, left ankle and foot (M19.072) Active confirmed Vital Signs Weight 220 lbs 06/15/2024 Height 66 in 06/15/2024 Heart Rate 97 /min 06/15/2024 Respiratory Rate 16 /min 06/15/2024 BMI 35.51 kg/m2 06/15/2024 Oximetry 98 % 06/15/2024 Encounters Encounter Location Date Provider Diagnosis [facility] (PODIATRY) [address] [place] [address] [place] [address] 06/15/2024 Javier Luke Left foot pain M79.672 [...] arthritis. She underwent right midfoot fusion in [place] several years ago and is very happy [...] arthritis. She underwent right midfoot fusion in [place] several years ago and is very happy [...] Notes * Bettina REEDDOB:1955 (69 yo F)Acc No.[id number]:06/15/2024 New Patient Patient: Bettina GOLDSMITH Provider: Lorenzo Luke DPM, MS :1955 A ge:69 Y S ex:Female Date:06/15/2024 Address:[address] [place] [address], [place] [address] Pcp:Pteer Rush, DO Check In:09:41 AM ESTCheck O ut:10:47 AM EST Subjective: * Chief Complaints: * L eft foot second opinion * HPI: G eneral: Pt has complaints of left midfoot pain, 03/04 with WB, achy pain NWB. Pt reports history of right midfoot fusion at [facility] [address] Garsia and relays he [...] M usculoskeletal: Bone/Joint Symptoms d enies. C glory Pain d enies.?Leg cramps d enies. N [...] 06/15/2024 Generated for Leonardo conteh/Rayray/Amadouitting on: 0 02/02/2025 10:17 AM EDT History and Physical Notes * HPI (History of Present Illness) Category Sub-Category Detail Notes Category Not es General Pt has complain ts of left midfoot pain, 03/04 with WB, achy pain NWB. Pt reports history of right midfoot fusion at [facility] [address] Garsia and relays he [...]
--- OUTSIDE RECORDS SUMMARY | 2024-06-22 05:15 | XMS_ITS ---
Author Organization [facility] in [place] Address [address] [place] [address] Care Team Providers Care Center Administrator Name Role Phone Peter Rush DO Primary Care Provider Javier Fontaine [phone] Allergies Allergen (clinical drug ingredient) Drug/Non Drug Allergy documented on EMR Reaction Allergy Type Onset Date Status Vicodin Unknown Drug Allergy Active oxycodone oxyCODONE Unknown Drug Allergy Active morphine Morphine Unknown Drug Allergy Active Reason For Referral Reason Referral to Diagnosis 1 Primary osteoarthrit is, left ankle and foot (M19.072) Referral Organization [facility] (PODIATRY) Referring Provider First Name Javier Referring Provider Last Name Ti Referring Provider Speciality Podiatry Referred Provider Specialty Pain Medicin e Referral Priority Routine REASON FOR VISIT CT REVIEW & DEXA Medications Medication SIG (Take, Route, Fr equency, Duration) Notes Start Date End Date Status Estradiol Active Pantoprazole Sodium Active Celecoxib Active Social History Tobacco Use: Social History Observation Description Date Details (start date - stop date) Never Smoker NA - NA Tobacco Control (Standard) Question Answer Notes Tobacco use: Nonsmoker Vital Signs Height 66 in 06/22/2024 Temperature 97.8 degrees Fahrenheit 06/22/19 25 Heart Rate 82 /min 06/22/2024 Oximetry 99 % 06/22/2024 Encounters Encounter Location Date Provider Diagnosis [facility] ([facility]) [address] [place] [address] [place] [address] 06/22/2024 Javier Luke Primary osteoarthritis, left ankle and foot M19.072 Assessments Encounter Date Diagnosis (ICD Code) Assessment Notes Treatment Notes Treatment Clinical Notes Section Notes 06/22/2024 Primary osteoarthriti s, left ankle and foot (ICD-10 - M19.072) Patient is a 69-year-old female who underwent right second and third tarsometatarsal joint and naviculocuneiform joint fusion in [place] years ago. She is having similar symptoms on her left foot. At last appointment I ordered a DEXA scan which demonstrates a low fracture risk and bone density of the hip that is within normal limits (-0.8). I also ordered a CT scan which was reviewed with her today. We discussed potential risks and benefits of surgical treatment. I reviewed the possible complications which include but not limited to infection, wound healing issue, numbness and tingling, bleeding, blood clot, pain, need for additional surgery.Other possible complications include malunion, nonunion, delayed union and painful hardware. I believe she would benefit from second and third tarsometatarsal joint fusionPostoperative course was reviewed and the patient will likely be: 8 weeks nonweightbearing and would be able to go home after the surgery as long as she performs physical therapy for gait training on crutches/walker and knee scooter. She would like to undergo surgery sometime after August giving upcoming family plans and vacation. She may call if any concerns or issues arise. Plan Of Treatment Treatment Notes Assessment Notes Primary osteoarthritis, left ankle and foot Patient is a 69-year-old female who underwent right second and third tarsometatarsal joint and naviculocuneiform joint fusion in [place] years ago. She is having similar symptoms on her left foot. At last appointment I ordered a DEXA scan which demonstrates a low fracture risk and bone density of the hip that is within normal limits (-0.8). I also ordered a CT scan which was reviewed with her today. We discussed potential risks and benefits of surgical treatment. I reviewed the possible complications which include but not limited to infection, wound healing issue, numbness and tingling, bleeding, blood clot, pain, need for additional surgery.Other possible complications include malunion, nonunion, delayed union and painful hardware. I believe she would benefit from second and third tarsometatarsal joint fusionPostoperative course was reviewed and the patient will likely be: 8 weeks nonweightbearing and would be able to go home after the surgery as long as she performs physical therapy for gait training on crutches/walker and knee scooter. She would like to undergo surgery sometime after August giving upcoming family plans and vacation. She may call if any concerns or issues arise. Referrals Referral Date Details 06/22/2024 06/22/2024, Referral to Progress Notes * Bettina REEDDOB:1955 (69 yo F)Acc No.[id number]:06/22/2024 Follow Up Patient: Bettina GOLDSMITH Provider: Lorenzo Luke DPM, MS :1955 A ge:69 Y S ex:Female Date:06/22/2024 Address:[address] [place] [address], [place] [address] Pcp:Peter Rush, DO Check In:09:09 AM ESTCheck O ut:10:44 AM EST Subjective: * Chief Complaints: * C T REVIEW & DEXA * HPI: Arpit eneral: Patient in office today for CT reiew and DEXA scan review. Patient rating her pain 7/10 today feeling achey due to weather . She does take extra strength tylenol when she knows shes going to be on her feet alot. She brought orthotics in today for Dr. Luke to evaluate. She states that she changes her shoes up to 3 times per day due to the discomfort in her feet. Still taking Celebrex. * Active Problem List M79.672 Left foot pain Modified On:06/11/2024W/U Status:confirmed M19.072 Primary osteoarthrit is, left ankle and foot Modified On:06/15/2024W/U Status:confirmed * Medical History: * Surgical History: H ysterectomy 1996lithotripsy 2013lobectomy 2014lumbar surgery 2015right foot surgery [facility] 2016 * Hospitalization/Major Diagno stic Procedure: N o Hospitalization History. * Family History: F ather: diagnosed with Other malignant neoplasm of unspecified site, Unspecified heart disease. M other: diagnosed with Unspecified heart disease. anesthesia problems-extreme nausea. * Social History: T obacco Use: T obacco Control (Standard) T obacco use: N onsmoker * Medications: T akingCelecoxib Estradiol Pantoprazole Sodium Medication List reviewed and reconciled with the patientTaking Celecoxib Taking Estradiol Taking Pantoprazole Sodium Medication List reviewed and reconciled with the patient * Allergies: M orphineoxyCODONEVicodinno[Allergies Verified] Objective: * Vitals: H t: 66 in, Temp:97.8F, HR:82/min, Pain scale:71-10, Oxygen sat %:99%, Ht-cm: 167.64 cm. * Examination: P odiatry Examination: SKIN: s kin intact, n o sign of infection. MUSCULOSKELETAL: P OP over left dorsal midfoot over the second and third tarsometatarsal joints. Palpable osteophyte in this area as well. No significant deformity. NEUROLOGICAL: l ight touch sensation intact, n egative tinel's sign. VASCULAR: P edal pulses palpable, C apillaryrefill is brisk to toe, mild dorsal foot swelling. C T scan was reviewed with the patient which demonstrates significant degeneration of the second and less so third tarsometatarsal joints. Early degenerative changes to the naviculocuneiform joint. First tarsometatarsal joint does not have significant degeneration. Assessment: * Assessment: 1. P rimary osteoarthritis, left ankle and foot - M19.072 (Primary) Plan: * Treatment: * Procedure Codes: * * Sign off status: Completed Visit Status: Juany HK (Check Out) true * Provider: Lorenzo Luke DPM, MS Date: 0 06/22/2024 [facility]Rayray/Amadouitting on: 0 02/02/2025 10:17 AM EDT History and Physical Notes * HPI (History of Present Illness) Category Sub-Category Detail Notes Category Not es General Patient in offi ce today for CT reiew and DEXA scan review. Patient rating her pain 7/10 today feeling achey due to weather . She does take extra strength tylenol when she knows shes going to be on her feet alot. She brought orthotics in today for Dr. Luke to evaluate. She states that she changes her shoes up to 3 times per day due to the discomfort in her feet. Still taking Celebrex. Examination Category Sub-Category Detail Notes Category Not es Podiatry Examination SKIN: skin intact, no sign of infection CT sc an was reviewed with the patient which demonstrates significant degeneration of the second and less so third tarsometatarsal joints. Early degenerative changes to the naviculocuneiform joint. First tarsometatarsal joint does not have significant degeneration MUSCULOSKELETAL: POP over left dorsal midfoot over the second and third tarsometatarsal joints. Palpable osteophyte in this area as well. No significant deformity NEUROLOGICAL: light touch sensatio n intact, negative tinel's sign VASCULAR: Pedal pulses palpable, Capillary refill is brisk to toe, mild dorsal foot swelling Consultation Request Notes Referral Date Referring Provider Referred Provider Not svitlana 06/22/2024 Javier Luke , Referral t christiano Cabral
--- OUTSIDE RECORDS SUMMARY | 2024-07-12 06:30 | XMS_ITS ---
Author Organization [facility] Address [address] [place] [address] Care Team Providers Care Recreation Therapy Director Name Role Phone ARANZA PICHARDO DO Primary Care Provider Sonny Luis Unavailable [phone] REASON FOR VISIT ALYSSIA KNEE INJ Encounters Encounter Location Date Provider Diagnosis [facility] [facility] [address] [facility] [place] [address] [place] [address] 07/12/2024 Sonny Wong Plan Of Treatment No Information Progress Notes * RADHA REED LDOB:[birth year] (69 yo F)Acc No.[id number]:07/12/2024 Patient: RADHA GOLDSMITH Provider: Rika Wong MD :1955 A ge:69 Y S ex:Female Date:07/12/2024 Address:[address] [place], [place] [id number] Pcp:ARANZA PICHARDO DO Subjective: * Chief Complaints: * 1 . ALYSSIA KNEE INJ. * Medical History: Objective: * Vitals: Assessment: Plan: * Treatment: Forms: * Images: * Electronic signature of Jaun Wong MD on 02/02/2025 at 10:17 AM EDT Sign off status: Pending * Provider: Rika Wong MD Date: 07/12/2024 Generated for Leonardo conteh/Rayray/eTransmitting on: 0 02/02/2025 10:17 AM EDT
--- OUTSIDE RECORDS SUMMARY | 2025-01-26 06:15 | XMS_ITS | Continuity of Care Document ---
Author Organization [facility] Address [address] [place] [address] Phone Care Team Providers Care Stage Driver Name Role Phone Peter Rush DO Primary Care Provider Randy Valentine II, MD Attending Provider Care Teams Patient Care Team Team Status: Active Member Role Status Dates Peter Rush DO Primary Care Provider Active Visit Care Team Team Status: Inactive Member Role Status Dates Peter Rush DO Primary Care Provider Active Start: December 14, 2024 End: December 14, 2024 Randy Valentine II, MD Attending Provider Active Start: December 14, 2024 End: December 14, 2024 Patient Care Team Team Status: Inactive Member Role Status Dates Peter Rush DO Primary Care Provider Active Start: January 26, 2025 End: January 26, 2025 Randy Valentine II, MD Attending Provider Active Start: January 26, 2025 End: January 26, 2025 Chief Complaint and Reason for Visit Chief Complaint Admit Date NEW ALYSSIA KNEE PAIN NX December 14, 2024 10: 40am 6 WEEKS January 26, 2025 9:18am Reason for Visit Admit Date Primary osteoarthritis of knees, bilater al December 14, 2024 10:40am Allergies, Adverse Reactions, Alerts Allergen Type Severity Reaction Last Updated Verified Status morphine Allergy Unknown Unknown Reaction December 14, 2024 11:20a m Yes Active Social History Smoking Status Status Start Date End Date Date of Observa tion Ex-smoker (finding) November 2:39pm Observation Status Observation Response Date of Response Legal Sex Female (finding) Sex Assigned At Female [birth year] Family History Relationship Condition Age at Onset Recorded Date/T rakan brother Asthma Unknown father Malignant neoplasm Unknown Family history of lung cancer Unknown mother Family history of mental disorder Unknown Problems Active Problems Medical Problem Onset Date Status Screening for colon cancer Unknown Activ e Primary osteoarthritis of left knee Unknown Active Menopause Unknown Active Primary osteoarthritis of knees, bilateral Unkno wn Active Cavernous hemangioma of liver Unknown Ac tive Knee pain, left Unknown Active Knee pain, bilateral Unknown Active GERD (gastroesophageal reflux disease) Unknown Active Obesity Unknown Active Medications Medication Status Dose Units Route Directions Qty Days St art Date Stop Date End Date Instructions Adherence Estradiol 0.01 % (0.1 mg/gram) cream Active 1 GM VAGINA L Twice a Week 42.5 90 November 24, 2023 5:23pm Unknown Celecoxib (Celebrex) 200 mg capsule Discont inued 200 MG PO Daily as needed for pain 08 22December 28, 2023 12:00a m Sept mber 2023 5:56p m Celecoxib 200 mg capsule Discont inued 0 .ROUTE .COMPLEX 2023 5:56pm September 01, 2024 5:19p m TAKE 1 CAPSULE ORALLY DAILY NEEDED FOR PAIN FOR 30 DAYS Doxycycline Hyclate 100 mg capsule Discont inued 100 MG PO Twice daily 14 7 Decemb 2023 1:00am December 14, 2024 11:19 am Azithromyci n 250 mg tablet Discont inued 250 MG PO .COMPLEX 6 2024 1:00am December 14, 2024 11:19 am 2 tabs on first day followed by 1 tab on days 2-5 Celecoxib 200 mg capsule Discont inued 0 .ROUTE .COMPLEX September 01, 2024 5:19pm December 14, 2024 11:19 am TAKE 1 CAPSULE ORALLY DAILY NEEDED FOR PAIN FOR 30 DAYS Meloxicam 15 mg tablet Active 15 MG PO Daily December 14, 2024 1:23pm Unknown Estradiol 0.01 % (0.1 mg/gram) cream Discont inued 1 GM VAGINA L Twice a Week November 24, 2023 12:00a m November 24, 2023 5:24p m Omeprazole 40 mg capsule,del ayed release(DR/ EC) Discont inued 40 MG PO Daily December 23, 2023 12:00a m December 14, 2024 11:20 am Meloxicam 15 mg tablet Discont inued 15 MG PO Daily December 14, 2024 12:00a m December 14, 2024 12:00 pm Meloxicam 15 mg tablet Discont inued 15 MG PO Daily December 14, 2024 12:00p m December 14, 2024 12:41 pm Meloxicam 15 mg tablet Discont inued 15 MG PO Daily December 14, 2024 12:41p m December 14, 2024 1:23p m Immunizations Immunization Event Date Not Given Reason Dose Number Cuff Maker Lot Number Vaccine Information Statement (VIS) Detail Administration Location COVID-19 Ad26.COV2.S ([employer]) August 04, 2020 influenza, unspecified formulation March 24, 2021 influenza, unspecified formulation April 09, 2022 Tetanus, Diphtheria adult, 5 Lf pres free abs March 15, 2016 Tetanus, Diphtheria adult, 5 Lf pres free abs February 23, 2017 Vital Signs Vital Reading Result Reference Range Collection Date/Time Height 66 [in_i] December 14, 2024 11:13am Weight 100.75 kg December 14, 2024 11:13am BP Systolic 130 mm[Hg] 100-140 December 14, 2024 11:13am BP Diastolic 82 mm[Hg] 60-100 December 14, 2024 11:13am BMI (Body Mass Index) 35.8 kg/m2 November 242024 11:13am Height 66 [in_i] January 26, 2025 9:32am Weight 102.10 kg January 26, 2025 9:32am BP Systolic 138 mm[Hg] 100-140 January 26, 2025 9:32am BP Diastolic 88 mm[Hg] 60-100 January 26, 2025 9:32am BMI (Body Mass Index) 36.3 kg/m2 2024 9:32am Advance Directives Advance Directive Response Recorded Date/ Time Advance Directives No December 22 2:21pm Insurance Providers Guarantor Bettina Larios Address [address] [address] Contact Info. Home Phone: Payer Policy Id Subscriber's Name Subscriber Id Hector ctive Date Expiration Date [facility] [id number] Bettina Larios [id number] Medicare [id number] Bettina Larios [id number] [employer] [id number] Bettina Larios [id number] Encounters Encounter Location(s) Arrival/Admit Date Discharge/Depart Date Provider(s) Departed Physician/Prov ider Office Visit -[facility] [place] December 14, 2024 10:40am December 14, 2024 11:49am Sallie Brian MD Departed Physician/Prov ider Office Visit -[facility] January 26, 2025 9:18am January 26, 2025 10:14am Sallie Brian MD Recent Diagnosis Onset Date Admit Date Primary osteoarthritis of knees, bilateral Unkno wn December 14, 2024 10:40am Assessments Diagnosis Onset Date Resolution Status Admit Date Primary osteoarthritis of kn ees, bilateral acute December 14, 2024 10:40am Plan of Treatment Future Tests Future scheduled test information is unavailable Pending Tests Test Name Ordered Date Scheduled Date XR knee BI 4V December 13, 2024 11:58am XR pelvis 1-2V December 13, 2024 11:58am Future Visits Future appointment information is unavailable Referrals to Other Providers Referral information is unavailable Future Procedures Future procedure information is unavailable Future Medications Future medication information is unavailable Patient Instructions Patient instructions are unavailable
--- OUTSIDE RECORDS SUMMARY | 2025-02-02 10:17 | XMS_ITS | Encounter Summary ---
Author Organization [facility] Address [address] [place] [address] Care Team Providers Care A Operator Name Role Phone Victor Manuel Peter Mela CHAIREZ Primary Care Provider [phone] Source Comments In the event this information is protected by the Federal Confidentiality of Alcohol and Drug AbusePatient Records regulations: The Federal rules restrict any use of the information to criminally investigate or prosecute any alcohol or drug abuse patient.[facility] Encounter Details Date Type Department Care Team (Late st Contact Info) Description 05/16/2015 Patient Msg Spine [place] [address] [phone] RE: Appointment Cancellation Request Social History Tobacco [...] on filedocumented in this encounter Care Teams A Operator Relationship Specialty Start Date End Date Peter Rush DO PCP - General Internal Medicine 09/11/12 documented as of this encounter
--- OUTSIDE RECORDS SUMMARY | 2025-02-02 10:17 | XMS_ITS | Encounter Summary ---
Author Organization [facility] Address [address] [place] [address] Care Team Providers Care Supervising Floorperson Name Role Phone Victor Manuel Peter Mela CHAIREZ Primary Care Provider [phone] Source Comments In the event this information is protected by the Federal Confidentiality of Alcohol and Drug AbusePatient Records regulations: The Federal rules restrict any use of the information to criminally investigate or prosecute any alcohol or drug abuse patient.[facility] Encounter Details Date Type Department Care Team (Late st Contact Info) Description 2022 [place] [address] Provider, [facility] Medicare Coverage of Physical Exams [...] N ot on file 04/30/2020 Data from: [email or web address] Last address used for calculation Not on [...] on filedocumented in this encounter Care Teams Supervising Floorperson Relationship Specialty Start Date End Date Peter Rush DO PCP - General Internal Medicine 09/11/12 documented as of this encounter
--- OUTSIDE RECORDS SUMMARY | 2025-02-02 10:17 | XMS_ITS | Encounter Summary ---
Author Organization [facility] Address [address] [place] [address] Care Team Providers Care Environmental Director Name Role Phone Peter Rush Primary Care Provider [phone] Source Comments In the event this information is protected by the Federal Confidentiality of Alcohol and Drug AbusePatient Records regulations: The Federal rules restrict any use of the information to criminally investigate or prosecute any alcohol or drug abuse patient.[facility] Encounter Details Date Type Department Care Team (Late st Contact Info) Description 01/22/2016 Get Medical Advice Urology [address] [place] [address] Jannet Galindo, DAYTIME BABYSITTER.[facility] [address] [place], [place] [id number] RE: Non-Urgent Medical Question Social History Tobacco [...] on filedocumented in this encounter Care Teams Environmental Director Relationship Specialty Start Date End Date Peter Rush DO PCP - General Internal Medicine 09/11/12 documented as of this encounter
--- OUTSIDE RECORDS SUMMARY | 2025-02-02 10:17 | XMS_ITS | Encounter Summary ---
Author Organization [facility] Address [address] [place] [address] Care Team Providers Care Instructor Dancing Name Role Phone Peter Rush Primary Care Provider [phone] Source Comments In the event this information is protected by the Federal Confidentiality of Alcohol and Drug AbusePatient Records regulations: The Federal rules restrict any use of the information to criminally investigate or prosecute any alcohol or drug abuse patient.[facility] Encounter Details Date Type Department Care Team (Late st Contact Info) Description 02/15/2015 Get Medical Advice Neurology [address] [place], [place] [id number] Bettina Madrid MD [address] [place], [place] [id number] Test Result Question Social History Tobacco Use [...] on filedocumented in this encounter Care Teams Instructor Dancing Relationship Specialty Start Date End Date Peter Rush DO PCP - General Internal Medicine 09/11/12 documented as of this encounter
--- OUTSIDE RECORDS SUMMARY | 2025-02-02 10:17 | XMS_ITS | CCD ---
Author Organization [facility] CliniSymn Care Team Providers Care Television Maintenance Man Name Role Phone VICTOR MANUEL, DR COBIAN [...] Patel Consulting Unavailable Victor Manuel, Peter Unavailable Ball , Peter E Primary Care Provider YOLANDA STAFFORD Attending Unavailabl e BALL, PETER E Primary Care Unavailable YOLANDA STAFFORD Referring Unavailabl e BALL, PETER E Primary Care Unavailable JUSTINA GUTIERREZ, YOLANDA Referring Unavailabl e BALL, PETER E Primary Care Unavailable VICTOR MANUEL, PETER Primary Care Physician [phone] Cristian CINTRON Attending Unavailable BALL, PETER Referring Unavailable NILL, Cristian Hanson Attending Unavailable NILL, Cristian Hanson Attending Unavailable Ball , Peter Primary Care Provider Randy Valentine MD Attending Provider Joseph WILSON, Felisa Gauthier Attending Unavailable Gijoeyitis , Andrius Vytmicheal Attending Unavailable Gijoeyitis , Andrius Vytmicheal Attending Unavailable Gijoeyitis , Andrius Vytmicheal Attending Unavailable Allergies Allergy Classification Reported Allergen(s) Allergy Type Date of Onset Reaction(s) Facility (4 sources) Morphine; Translations: [MORPHINE] Drug Allergy 3 [facility] Rep[facility] (7 sources) Morphine; Translations: [morphine] Drug Allergy 3 Other: See Comments, Patient reported problems (finding) [facility] (3 sources) Latex; Translations: [LATEX] Drug Allergy 3 Rash [facility] (1 source) patient allergy list reviewed by nurse or physicia Propensity to adverse reactions Comment:Done [employer] Other Medications Current Medications Medication Drug Class(es) Dates Sig (Normalized) Sig (Original) estradiol 0.1 mg/ml vaginal cream (12 sources) Estrogen Start: 01-06-2024 estradiol 0.1 mg/g Vag Crm 1 gm, Vaginal, MonFri, Refill(s) 0 Start Date: 01/06/24 Status: Ordered Start: 11-24-2023 End: 11-24-2023 Start: 08-31-2022 Estradiol 0.1 MG/GM 1 gram Vaginal twice weekly for 90 days Aug, Active Start: 04-11-2021 Estradiol 0.1 MG/GM 1 gram Vaginal twice weekly for 90 days Aug, Active Comment on above: Use 1 g vaginally tw o times a week. estrogens, conjugated (penitentiary) 0.625 mg/ml vaginal cream (3 sources) Estrogen Premarin 0.625 M G/GM as directed Vaginal twice weekly for 30 days Active Premarin 0.625 M G/GM as directed Vaginal twice weekly for 30 days Active pantoprazole 40 mg delayed release oral tablet (1 source) Proton Pump Inhibitor Start: 03-18-2024 take 1 tablet by mouth twice daily Pantoprazole [address] Tab 40 mg = 1 tab(s), Oral, BID, Refills(s) 0 Start Date: 03/18/24 Status: Ordered polyethylene glycol 3350 259730 mg / potassium chloride 2970 mg / sodium bicarbonate 6740 mg / sodium chloride 5860 mg / sodium sulfate 66235 mg powder for oral solution (1 source) [...] on above: Take 4,000 mL by kira one time only for 1 dose. Refer [...] once daily. azithromycin 250 mg oral tablet (5 sources) Macrolide Antimicrobial Start: 07-17-2024 End: 12-14-2024 Azithromycin 250 mg tablet Discontinued 250 MG PO .COMPLEX 6 July 17, 2024 1:00am December 14, 2024 [...] by mouth. celecoxib 200 mg oral capsule (8 sources) Nonsteroidal Anti-inflammatory Drug Start: 024 End: 025 take 1 capsule by mouth once daily as needed for pain Celecoxib 200 mg capsule Discontinued 0 .ROUTE .COMPLEX September 01, 2024 5:19pm December 14, 2024 11:19am TAKE 1 CAPSULE ORALLY DAILY NEEDED FOR PAIN FOR 30 DAYS Start: 12-28-2023 End: 02-22-2024 take 1 capsule by mouth once daily as needed for pain Celecoxib (Celebrex) 200 mg capsule Discontinued 200 MG PO Daily as needed for pain 08 22December 28, 2023 12:00am February 22, 2024 5:56pm cholecalciferol 0.05 mg oral tablet (2 sources) [...] B-12, (VITAMIN B-12 ORAL) (2 sources) Start: 12-12-19 CYANOCOBALAMIN, VITAMIN B-12, (VITAMIN B-12 ORAL) Take by mouth once daily. 0 12/11/2016 Active Comment on above: Take by mouth once d aily. doxycycline hyclate 100 mg oral capsule (2 sources) Tetracycline-class Drug Start: 05-19-20 End: 12-15-19 take 1 capsule by mouth twice daily Doxycycline Hyclate 100 mg capsule Discontinued 100 MG PO Twice daily 14 7 May 19, 2024 1:00am December 14, 2024 11:19am KRILL OIL ORAL (2 sources) take 350 mg by mouth once daily KRILL OIL ORAL Take 350 mg by mouth once daily. 0 Active Comment on above: Take 350 mg by mouth once daily. MEDICATION, NON-DATABASE (2 sources) MEDICATION, NON-DATABASE Collagen powder daily 0 Active Comment on above: Collagen powder juan antonio y meloxicam 15 mg oral tablet (5 sources) Nonsteroidal Anti-inflammatory Drug Start: 12-15-19 End: 12-15-19 take 1 tablet by mouth once daily Meloxicam 15 mg tablet Discontinued 15 MG PO Daily 30 December 14, 2024 12:41pm December 14, 2024 1:23pm MULTIVITAMIN/IRON/FOL IC ACID (CENTRUM WOMEN ORAL) (2 sources) Start: 12-12-19 17 MULTIVITAMIN/IRON/FOL IC ACID (CENTRUM WOMEN ORAL) Take by mouth once daily. 0 12/11/2016 Active Comment on above: Take by mouth once d aily. omeprazole 40 mg delayed release oral capsule (6 sources) Proton Pump Inhibitor Start: 12-23-19 24 End: 12-15-19 25 take 1 capsule by mouth once daily Omeprazole 40 mg capsule,delayed release(DR/EC) Discontinued 40 MG PO Daily December 23, 2023 12:00am December 14, 2024 11:20am Start: 02-26-2013 take 1 capsule by mo uth once daily omeprazole (PRILOSEC) 10 mg capsule Indications: Mid back pain , Lumbar degenerative disc disease , Numbness and tingling in right hand , Numbness of foot , Osteoarthritis Take 1 capsule by mouth once daily. 0 02/26/2013 Active Comment on above: Take 1 capsule by mo uth once daily. Problems Active Problems Problem Classification Problem Date Documented Da te Episodic/Chronic Abdominal hernia (1 source) Diaphragmatic hernia; Translations: [Diaphragmatic hernia without obstruction or gangrene] Onset: 4 Episodic Calculus of urinary tract (7 sources) Personal history of urinary calculi; Translations: [History of calculus of kidney] Onset: 3 04-21-2013 Episodic Esophageal disorders (10 sources) Gastroesophageal reflux disease; Translations: [Gastro-esophageal reflux [...] vaginitis; Translations: [Postmenopausal atrophic vaginitis] Chronic Osteoarthritis (5 sources) Inflammation of joint of foot; Translations: [Primary osteoarthritis, unspecified ankle and foot] Onset: 7 07-03-2016 Chronic Other and unspecified benign neoplasm (9 sources) Hemangioma of intra-abdominal structures; Translations: [Cavernous [...] right knee] Episodic Other non-traumatic joint disorders (4 sources) Pain in left knee; Translations: [Left knee pain] 12-23-2023 Episodic Other non-traumatic joint disorders (3 sources) Pain in right knee; Translations: [Pain [...] Chronic Other nutritional; endocrine; and metabolic disorders (4 sources) Obesity; Translations: [Obesity, unspecified] 12-23-2023 Chronic Other nutritional; endocrine; and metabolic disorders (1 source) Simple obesity ; Translations: [Other obesity due to excess calories] Onset: 6 Chronic Other nutritional; endocrine; and metabolic disorders (2 sources) Obese class III 01-06-2024 Chronic Other screening for suspected conditions (not mental disorders or infectious disease) (7 sources) Patient encounter status; Translations: [Encounter for screening for malignant neoplasm of colon] Onset: 4 12-23-2023 Episodic Residual codes; unclassified (6 sources) Menopause present; Translations: [Asymptomatic menopausal state] [...] choosing us for your care. Normal [facility] General Surgery Office/Clini c Noteon [...] SARS-CoV-2 (COVID-19) Ad26 vaccine 08/04/2020 Recorded Normal [facility] Comment on above: Result Comment: Elec tronically Signed By: ABDULAZIZ WILSON, Cristian Doshi\Date and Time Signed: 03/24/24 16:23 EDT Reminderson 03-04-2024 Reminders Reminders From: Patti Douglas LPN To: N - Clinical; Sent: 03/04/2024 14:13:04 EDT Show up: 02/01/2034 07:00:00 EDT Subject: colonoscopy recall Due Date/Time: 03/03/2034 07:00:00 EDT Reminder/Recall Patient due for screening colonoscopy 03/03/2034. Normal [facility] CBC W Auto Differential pane l (Bld)on 09-26-2022 Basophils (Bld) [#/Vol] 0.04 10*3/uL Normal <0.11 [facility] Comment on above: Order Comment: Speci men Type: BLOOD SPECIMEN Ordering Facility: [facility] Address: [address] [address] Performed By: #### 5 7021-8 #### [facility] CLIA [id number] [address] [place] [address] [place] Basophils/100 WBC (Bld) 0.7 % Normal [facility] Comment on above: Order Comment: Speci men Type: BLOOD SPECIMEN Ordering Facility: [facility] Address: [address] [place] [address] Performed By: #### 5 7021-8 #### [facility] CLIA [id number] [address] [place] [address] [place] Differential cell count method Nom (Bld) Auto Normal [facility] Comment on above: Order Comment: Speci men Type: BLOOD SPECIMEN Ordering Facility: [facility] Address: [address] [address] Performed By: #### 5 7021-8 #### [facility] CLIA [id number] [address] [place] [address] [place] Eosinophils (Bld) [#/Vol] 0.04 10*3/uL Normal <0.46 [facility] Comment on above: Order Comment: Speci men Type: BLOOD SPECIMEN Ordering Facility: [facility] Address: [address] [address] Performed By: #### 5 7021-8 #### [facility] CLIA [id number] [place] [address] [place] Eosinophils/100 WBC (Bld) 0.7 % Normal [facility] Comment on above: Order Comment: Speci men Type: BLOOD SPECIMEN Ordering Facility: [facility] Address: [address] [address] Performed By: #### 5 7021-8 #### [facility] IA [id number] [address] [place] [address] [place] Erythrocyte distribution width (RBC) [Ratio] 12.2 % Normal 11.5-15.0 [facility] Comment on above: Order Comment: Speci men Type: BLOOD SPECIMEN Ordering Facility: [facility] Address: [address] [place] [address] Performed By: #### 5 7021-8 #### [facility] IA [id number] [address] [place] [address] [place] Hematocrit (Bld) [Volume fraction] 43.6 % Normal 36.0-46.0 [facility] Comment on above: Order Comment: Speci men Type: BLOOD SPECIMEN Ordering Facility: [facility] Address: [address] [place] [address] Performed By: #### 5 7021-8 #### [facility] IA [id number] [address] [place] [address] [place] Hemoglobin (Bld) [Mass/Vol] 14.4 g/dL Normal 11.5-15.5 [facility] Comment on above: Order Comment: Speci men Type: BLOOD SPECIMEN Ordering Facility: [facility] Address: [address] [place] [address] Performed By: #### 5 7021-8 #### [facility] IA [id number] [place] [address] [place] Immature granulocytes (Bld) [#/Vol] 10*3/uL Normal <0.10 [facility] Comment on above: Order Comment: Speci men Type: BLOOD SPECIMEN Ordering Facility: [facility] Address: [address] [place], [place] [address] Performed By: #### 5 7021-8 #### [facility] IA [id number] [place] Immature granulocytes/100 WBC (Bld) 0.3 % Normal [facility] Comment on above: Order Comment: Speci men Type: BLOOD SPECIMEN Ordering Facility: [facility] Address: [address] [address] Performed By: #### 5 7021-8 #### [facility] IA [id number] [address] [place] Lymphocytes (Bld) [#/Vol] 1.48 10*3/uL Normal 1.00-4.00 [facility] Comment on above: Order Comment: Speci men Type: BLOOD SPECIMEN Ordering Facility: [facility] Address: [address] [address] Performed By: #### 5 7021-8 #### [facility] IA [id number] [address] [place] [address] [place] Lymphocytes/100 WBC (Bld) 25.8 % Normal [facility] Comment on above: Order Comment: Speci men Type: BLOOD SPECIMEN Ordering Facility: [facility] Address: [address] [address] Performed By: #### 5 7021-8 #### [facility] IA [id number] [address] [place] MCH (RBC) [Entitic mass] 30.5 pg Normal 26.0-34.0 [facility] Comment on above: Order Comment: Speci men Type: BLOOD SPECIMEN Ordering Facility: [facility] Address: [address] [address] Performed By: #### 5 7021-8 #### [facility] IA [id number] [address] [place] MCHC (RBC) [Mass/Vol] 33.0 g/dL Normal 30.5-36.0 [facility] Comment on above: Order Comment: Speci men Type: BLOOD SPECIMEN Ordering Facility: [facility] Address: [address] Performed By: #### 5 7021-8 #### [facility] IA [id number] [address] [place] [address] [place] MCV (RBC) [Entitic vol] 92.4 fL Normal 80.0-100.0 [facility] Comment on above: Order Comment: Speci men Type: BLOOD SPECIMEN Ordering Facility: [facility] Address: [address] [address] Performed By: #### 5 7021-8 #### [facility] CLIA [id number] [address] [place] [address] [place] Monocytes (Bld) [#/Vol] 0.55 10*3/uL Normal <0.87 [facility] Comment on above: Order Comment: Speci men Type: BLOOD SPECIMEN Ordering Facility: [facility] Address: [address] [address] Performed By: #### 5 7021-8 #### [facility] CLIA [id number] [address] [place] Monocytes/100 WBC (Bld) 9.6 % Normal [facility] Comment on above: Order Comment: Speci men Type: BLOOD SPECIMEN Ordering Facility: [facility] Address: [address] [address] Performed By: #### 5 7021-8 #### [facility] CLIA [id number] [address] [place] [address] [place] Neutrophils (Bld) [#/Vol] 3.61 10*3/uL Normal 1.45-7.50 [facility] Comment on above: Order Comment: Speci men Type: BLOOD SPECIMEN Ordering Facility: [facility] Address: [address] [address] Performed By: #### 5 7021-8 #### [facility] CLIA [id number] [place] Neutrophils/100 WBC (Bld) 62.9 % Normal [facility] Comment on above: Order Comment: Speci men Type: BLOOD SPECIMEN Ordering Facility: [facility] Address: [address] [address] Performed By: #### 5 7021-8 #### [facility] CLIA [id number] [address] [place] [address] [place] Nucleated RBC (Bld) [#/Vol] 10*3/uL Normal <0.01 [facility] Comment on above: Order Comment: Speci men Type: BLOOD SPECIMEN Ordering Facility: [facility] Address: [address] [address] Performed By: #### 5 7021-8 #### [facility] IA [id number] [address] [place] [address] [place] Nucleated RBC/100 WBC (Bld) [Ratio] 0.0 /100 WBC Normal [facility] Comment on above: Order Comment: Speci men Type: BLOOD SPECIMEN Ordering Facility: [facility] Address: [address] [place] [address] Performed By: #### 5 7021-8 #### [facility] IA [id number] [address] [place] [address] [place] Platelet mean volume (Bld) [Entitic vol] 9.2 fL Normal 9.0-12.7 [facility] Comment on above: Order Comment: Speci men Type: BLOOD SPECIMEN Ordering Facility: [facility] Address: [address] [address] Performed By: #### 5 7021-8 #### [facility] IA [id number] [address] [place] [address] [place] Platelets (Bld) [#/Vol] 267 10*3/uL Normal 150-400 [facility] Comment on above: Order Comment: Speci men Type: BLOOD SPECIMEN Ordering Facility: [facility] Address: [address] [address] Performed By: #### 5 7021-8 #### [facility] IA [id number] [address] [place] [address] [place] RBC (Bld) [#/Vol] 4.72 10*6/uL Normal 3.90-5.20 [facility] Comment on above: Order Comment: Speci men Type: BLOOD SPECIMEN Ordering Facility: [facility] Address: [address] Performed By: #### 5 7021-8 #### [facility] CLIA [id number] WBC (Bld) [#/Vol] 5.74 10*3/uL Normal 3.70-11.00 [facility] Comment on above: Order Comment: Speci men Type: BLOOD SPECIMEN Ordering Facility: [facility] Address: [address] Performed By: #### 5 7021-8 #### [facility] CLIA [id number] Comprehensive metabolic 2000 panelon 09-26-2022 Albumin [Mass/Vol] 4.6 g/dL Normal 3.9-4.9 [facility] Comment on above: Order Comment: Speci men Type: BLOOD SPECIMEN Ordering Facility: [facility] Address: [address] [address] Performed By: #### 2 4323-8 #### [facility] CLIA [id number] [place] ALP [Catalytic activity/Vol] 89 U/L Normal 34-123 [facility] Comment on above: Order Comment: Speci men Type: BLOOD SPECIMEN Ordering Facility: [facility] Address: [address] Performed By: #### 2 4323-8 #### [facility] CLIA [id number] [address] [place] [place] [id number] [place] [address] OF [facility] ALT [Catalytic activity/Vol] 28 U/L Normal 7-38 [facility] Comment on above: Order Comment: Speci men Type: BLOOD SPECIMEN Ordering Facility: [facility] Address: [address] Performed By: #### 2 4323-8 #### [facility] CLIA [id number] [address] [place] [address] [place] Anion gap [Moles/Vol] 9 mmol/L Normal 9-18 [facility] Comment on above: Order Comment: Speci men Type: BLOOD SPECIMEN Ordering Facility: [facility] Address: [address] [address] Performed By: #### 2 4323-8 #### [facility] CLIA [id number] [address] [place] [address] [place] AST [Catalytic activity/Vol] 21 U/L Normal 13-35 [facility] Comment on above: Order Comment: Speci men Type: BLOOD SPECIMEN Ordering Facility: [facility] Address: [address] [address] Performed By: #### 2 4323-8 #### [facility] IA [id number] [address] [place] [address] [place] Bilirubin [Mass/Vol] 0.5 mg/dL Normal 0.2-1.3 [facility] Comment on above: Order Comment: Speci men Type: BLOOD SPECIMEN Ordering Facility: [facility] Address: [address] Performed By: #### 2 4323-8 #### [facility] IA [id number] [address] [place] [address] [place] Calcium [Mass/Vol] 9.7 mg/dL Normal 8.5-10.2 [facility] Comment on above: Order Comment: Speci men Type: BLOOD SPECIMEN Ordering Facility: [facility] Address: [address] Performed By: #### 2 4323-8 #### [facility] CLIA [id number] [address] [place] [address] [place] Chloride [Moles/Vol] 104 mmol/L Normal 97-105 [facility] Comment on above: Order Comment: Speci men Type: BLOOD SPECIMEN Ordering Facility: [facility] Address: [address] Performed By: #### 2 4323-8 #### [facility] CLIA [id number] [address] [place] [address] [place] CO2 [Moles/Vol] 29 mmol/L Normal 22-30 [facility] Comment on above: Order Comment: Speci men Type: BLOOD SPECIMEN Ordering Facility: [facility] Address: [address] [address] Performed By: #### 2 4323-8 #### [facility] CLIA [id number] [address] [place] [address] [place] Creatinine [Mass/Vol] 0.68 mg/dL Normal 0.58-0.96 [facility] Comment on above: Order Comment: Speci men Type: BLOOD SPECIMEN Ordering Facility: [facility] Address: [address] [place] [address] Performed By: #### 2 4323-8 #### [facility] CLIA [id number] [place] ESTIMATED GLOMERULAR FILTRATION RATE 97 mL/min/1.73m??? Normal >=60 [facility] Comment on above: Order Comment: Speci men Type: BLOOD SPECIMEN Ordering Facility: [facility] Address: [address] [place] [address] Result Comment: Barbara mated Glomerular Filtration Rate [...] GFR. Performed By: #### 2 4323-8 #### [facility] CLIA [id number] [address] [place] [address] [place] Glucose [Mass/Vol] 98 mg/dL Normal 74-99 [facility] Comment on above: Order Comment: Aliai men Type: BLOOD SPECIMEN Ordering Facility: [facility] Address: [address] [place] [address] Result Comment: The [place] [employer] (ADA) provides guidance for cutoff [...] Standards of Medical Care in Diabetes 2016, [place] [employer]. Diabetes Care. 2016.39(Suppl 1). Performed By: #### 2 4323-8 #### [facility] CLIA [id number] [address] [place] [address] [place] Potassium [Moles/Vol] 4.6 mmol/L Normal 3.7-5.1 [facility] Comment on above: Order Comment: Speci men Type: BLOOD SPECIMEN Ordering Facility: [facility] Address: [address] [place] [address] Performed By: #### 2 4323-8 #### [facility] IA [id number] [address] [place] [address] [place] Protein [Mass/Vol] 7.4 g/dL Normal 6.3-8.0 [facility] Comment on above: Order Comment: Speci men Type: BLOOD SPECIMEN Ordering Facility: [facility] Address: [address] [address] Performed By: #### 2 4323-8 #### [facility] CLIA [id number] [address] [place] [address] [place] Sodium [Moles/Vol] 142 mmol/L Normal 136-144 [facility] Comment on above: Order Comment: Speci men Type: BLOOD SPECIMEN Ordering Facility: [facility] Address: [address] [address] Performed By: #### 2 4323-8 #### [facility] CLIA [id number] [address] [place] [address] [place] Urea nitrogen [Mass/Vol] 17 mg/dL Normal 7-21 [facility] Comment on above: Order Comment: Speci men Type: BLOOD SPECIMEN Ordering Facility: [facility] Address: [address] [place] [address] Performed By: #### 2 4323-8 #### [facility] CLIA [id number] [place] [address] [place] No Panel Informationon 09-26 [facility] US ABD RIGHT UPPER QUADRANTo [...] and could represent the previously described hemangiomas. Master Tax Advisor: PSCXi Transcribe Date/Time: Oct 03 2022 6:03A Dictated by : NAS DENSON MD This examination was interpreted and the report reviewed and electronically signed by: NAS DENSON MD on Oct 03 2022 6:08AM EST [id number] Normal [facility] US ABD SPLEEN -NBon 09-27-19 US ABD [...] and could represent the previously described hemangiomas. Master Tax Advisor: DARRELL Transcribe Date/Time: Oct 03 2022 6:03A Dictated by : NAS DENSON MD This examination was interpreted and the report reviewed and electronically signed by: NAS DENSON MD on Oct 03 2022 6:08AM EST [id number] [facility]2022 [facility] Office Visit (GASTAV ) BETTINA REED ([id number]) 1955 F Date Time Provider Department 09/25/22 1:30 PM YOLANDA STAFFORD During your visit today, we recorded the following information about you: Weight Height 100.7 kg 1.676 m Yolanda Ta MD 09/25/2022 2:21 PM Signed Hepatology [facility] consult by Dr Rush for liver lesions [...] MD Yolanda Walters MD cc dr Victor Maneul Ta MD 09/25/2022 2:17 PM Addendum Nice [...] If you do not have a responsible telephone directory distributor driver (family member or friend) with you [...] Ka (more content not included)... Normal [facility] HISTORY PHYSICALon 3 HISTORY PHYSICAL HNO ID: [id number] Author: Yolanda Gutierrez MD Service: ? Author Type: Physician Type: HANDP Filed: 09/25/2022 2:21 PM Note Text: Hepatology [facility] Florecita HPI consult by Dr [...] MD cc dr Victor Manuel Ramires [facility] CULTURE URINEon 01-11-2022 CULTURE URINE Culture Observations : MODERATE GROWTH OF MIXED GENITAL JESUS. NO POTENTIAL PATHOGENS SEEN. Normal [facility] Comment on above: Performed By: #### U RCX #### [facility] [address] [place] [address] Dr. Na Gonzales UA RANDOM W/MICROSCOPICon BACTERIA NONE SEEN Normal NONE SEEN [facility] Comment on above: Performed By: #### U AMIC #### [facility] [address] [place] [address] Dr. Na Gonzales Bilirubin Ql (U) Negative Normal NEGATIVE [facility] Comment on above: Performed By: #### U AMIC #### [facility] [address] [place] [address] Dr. Na Gonzales CAST NONE SEEN Normal NONE SEEN [facility] Comment on above: Performed By: #### U AMIC #### [facility] [address] [address] [address] Na Gonzales Clarity (U) CLEAR Normal CLEAR [facility] Comment on above: Performed By: #### U AMIC #### [facility] [address] [address] [address] Na Gonzales Color (U) LT. YELLOW Normal YELLOW [facility] Comment on above: Performed By: #### U AMIC #### [facility] [address] [place] [address] Dr. Na Gonzales Crystals LM Nom (Urine sed) NONE SEEN Normal NONE SEEN [facility] Comment on above: Performed By: #### U AMIC #### [facility] [address] [address] [address] Na Gonzales Epithelial cells LM Ql (Urine sed) NONE SEEN Normal NONE SEEN /RARE [facility] Comment on above: Performed By: #### U AMIC #### [facility] [address] [address] [address] Na Gonzales Glucose Ql (U) Negative Normal NEGATIVE [facility] Comment on above: Performed By: #### U AMIC #### [facility] [address] [address] [address] Na Gonzales Hemoglobin Ql (U) Negative Normal NEGATIVE [facility] Comment on above: Performed By: #### U AMIC #### [facility] [address] [place] [address] Dr. Na Gonzales Ketones Ql (U) Negative Normal NEGATIVE [facility] Comment on above: Performed By: #### U AMIC #### [facility] [address] [address] [address] Na Gonzales LEUKOCYTES SMALL Abnormal NEGATIVE [facility] Comment on above: Performed By: #### U AMIC #### [facility] [address] [address] [address] Na Gonzales MUCOUS NONE SEEN Normal NONE SEEN [facility] Comment on above: Performed By: #### U AMIC #### [facility] [address] [address] [address] Na Gonzales Nitrite Ql (U) Negative Normal NEGATIVE [facility] Comment on above: Performed By: #### U AMIC #### [facility] [address] [address] [address] Na Gonzales pH (U) 6.0 [pH] Normal 5-9 [facility] Comment on above: Performed By: #### U AMIC #### [facility] [address] [place] [address] Dr. Na Gonzales RBC NONE SEEN Abnormal 0-2 [facility] Comment on above: Performed By: #### U AMIC #### [facility] [address] [address] [address] Na Gonzales SPEC GRAVITY 1.005 Normal 1.005-<=1.02 5 [facility] Comment on above: Performed By: #### U AMIC #### [facility] [address] [address] [address] Na Gonzales UA PROTEIN Negative Normal NEGATIVE/ TRACE [facility] Comment on above: Performed By: #### U AMIC #### [facility] [address] [address] [address] Na Gonzales Urobilinogen Qn (U) 0.2 {Irene'U}/dL Normal 0.2 - 1.0 [facility] Comment on above: Performed By: #### U AMIC #### [facility] [address] [address] [address] Na Gonzales WBC 0-2 Abnormal NONE SEEN [facility] Comment on above: Performed By: #### U AMIC #### [facility] [address] [place] [address] ABD/PELVIS WO CONon [...] DEMETRIS PATEL Date: 2021-04-06 18:26 Normal [facility] CULTURE STOOLon 02-22-2021 CULTURE STOOL Culture Observations : SALMONELLA CALD TO EDNA FELIX LPN@1225/02/21/21/RK Culture Observations: [facility]21/RK Culture Observations: SENDING ISOLATE TO [facility] Isolate 1 Salmonella enterica ssp enterica Heavy growth of ORGANISM 1 Salmonella enterica ssp enterica ANTIBIOTIC M.I.C RX STATUS Ampicillin <=2 S F Ceftazidime <=1 S F Ceftriaxone <=1 S F Ciprofloxacin <=0.25 S F Levofloxacin <=0.12 S F Trimethoprim/Sulfamethoxazole <=20 S F Normal [facility] Comment on above: Performed By: #### S TOOLCX #### [facility] [address] [place] [address] Dr. Na Gonzales CLOSTRIDIUM DIFFICILE PCRon 02-21-2021 C difficile Toxin Gene SHADI Negative Normal Negative [facility] Comment on above: Performed By: #### C DIFNAA #### [facility] [address] [address] [address] Na Gonzales Vital Signs Date Time Vital Sign Value Performing Clinician Facility 01-26-2025 09:32-0400 Body height 167.64 cm [facility] DO Work Phone: [facility] 01-26-2025 09:32-0400 Body mass index (BMI) [Ratio] 36.3 kg/m2 [facility] DO Work Phone: [facility] 01-26-2025 09:32-0400 Body weight 102.1 kg [facility] DO Work Phone: [facility] 01-26-2025 09:32-0400 Diastolic blood pressure 88 mm[Hg] Peter Ball DO Work Phone: [facility] 01-26-2025 09:32-0400 Systolic blood pressure 138 mm[Hg] Peter Ball DO Work Phone: [facility] 12-14-2024 11:13-0400 Body height 167.64 cm Peter Ball DO Work Phone: [facility] 12-14-2024 11:13-0400 Body mass index (BMI) [Ratio] 35.8 kg/m2 Peter Ball DO Work Phone: [facility] 12-14-2024 11:13-0400 Body weight 100.75 kg Peter Ball DO Work Phone: [facility] 12-14-2024 11:13-0400 Diastolic blood pressure 82 mm[Hg] Peter Ball DO Work Phone: [facility] 12-14-2024 11:13-0400 Systolic blood pressure 130 mm[Hg] Peter Ball DO Work Phone: [facility] 01-27-2024 15:15-0400 Blood Pressure Location Cristian NILL [facility] 01-27-2024 15:15-0400 Diastolic blood pressure 82 mm[Hg] Cristian NILL [facility] [place] 01-27-2024 15:15-0400 Heart rate 76 /min Cristian NILL [facility] [place] 01-27-2024 15:15-0400 Respiratory rate 16 /min Cristian NILL [facility] 01-27-2024 15:15-0400 Systolic blood pressure 120 mm[Hg] Cristian NILL [facility] 12-23-2023 14:36-0400 Body height 167.64 cm [facility] 12-23-2023 14:36-0400 Body mass index (BMI) [Ratio] 35.2 kg/m2 [facility] 12-23-2023 14:36-0400 Body weight 98.93 kg [facility] 12-23-2023 14:36-0400 Diastolic blood pressure 86 mm[Hg] [facility] 12-23-2023 14:36-0400 Heart rate 98 /min [facility] 12-23-2023 14:36-0400 Respiratory rate 12 /min [facility] 12-23-2023 14:36-0400 Systolic blood pressure 141 mm[Hg] [facility] 09-25-2022 13:20-0400 Body height 167.6 cm Yolanda Gutierrez MD Work Phone: [facility] 09-25-2022 13:20-0400 Body weight 100.7 kg Yolanda Gutierrez MD Work Phone: [facility] 08-26-2022 14:30-0400 Body height 166.37 cm Peter Ball Other [employer] [facility] [employer] Other 08-26-2022 14:30-0400 Body mass index (BMI) [Ratio] 36.44 kg/m2 Peter Ball Other [employer] [facility] [employer] Other 08-26-2022 14:30-0400 Body weight 100.88 kg Peter Ball Other [employer] [facility] [employer] Other 08-26-2022 14:30-0400 Diastolic blood pressure 78 mm[Hg] Peter Ball Other [employer] Other 08-26-2022 14:30-0400 Respiratory rate 12 /min Peter Ball Other [employer] [facility] [employer] Other 08-26-2022 14:30-0400 Systolic blood pressure 122 mm[Hg] Peter Ball Other [employer] Other Encounters Encounter Date Encounter Type Care Provider Facility Start: 01-26-2025 End: 01-26-2025 ambulatory Peter Ball DO Work Phone: [facility] Work Phone: Start: 01-26-2025 End: 01-26-2025 Patient encounter procedure Randy Rizo MD -[facility] Work Phone: Start: 12-14-2024 End: 12-14-2024 ambulatory Peter Ball DO Work Phone: [facility] Work Phone: Start: 12-14-2024 End: 12-14-2024 Patient encounter procedure Randy Rizo MD -[facility] [place] Work Phone: Start: 11-15-2024 End: 11-15-2024 ambulatory Felisa Ruiz MD Facility: [facility] Start: 11-01-2024 End: 11-01-2024 ambulatory Felisa Ruiz MD Facility: [facility] Start: 10-11-2024 End: 10-11-2024 ambulatory Felisa Ruiz MD Facility: [facility] Start: 07-12-2024 End: 07-12-2024 ambulatory Felisa Ruiz MD Facility: [facility] Start: 03-24-2024 End: 03-24-2024 ambulatory Cristian CINTRON Facility: [facility] Start: 03-24-2024 End: 03-24-2024 Patient encounter procedure Cristian CINTRON [facility] Start: 03-03-2024 End: 03-03-2024 ambulatory Cristian CINTRON Facility:[id number] Start: 01-27-2024 End: 01-27-2024 ambulatory PETER RUSH Facility: [place] Start: 01-27-2024 End: 01-27-2024 Patient encounter procedure Cristian CINTRON [facility] Start: 12-26-2023 ambulatory Cristian JARAMILLOAnika Facility:[facility] Start: 12-23-2023 End: 12-23-2023 ambulatory [facility] Work Phone: Start: 12-23-2023 End: 12-23-2023 Patient encounter procedure [facility] Physician [facility] Work Phone: Start: 07-02-2023 End: 07-02-2023 ambulatory Peter Rush Other [employer] Other Start: 07-02-2023 Telephone encounter [facility] Start: 09-26-2022 End: 09-27-2022 ambulatory YOLANDA GUTIERREZ Facility:[facility] Start: 09-26-2022 End: 09-26-2022 Subsequent hospital visit by physician Brittany [facility] Work Phone: [facility] Comment on above: Polyp of colon, unsp ecified part of colon, unspecified type [K63.5] Start: 09-25-2022 End: 09-25-2022 ambulatory YOLANDA GUTIERREZ Facility:[facility] Start: 09-25-2022 End: 09-25-2022 Patient encounter procedure Yolanda Gutierrez MD Work Phone: Gastroenterology Comment on above: Polyp of colon, unsp ecified part of colon, unspecified type (Primary Dx); Liver hemangioma Start: 08-31-2022 End: 08-31-2022 ambulatory Pteer Rush Other [employer] Other Start: 08-31-2022 Telephone encounter [facility] Start: 08-26-2022 End: 08-26-2022 ambulatory Peter Rush Other [employer] Other Start: 08-26-2022 Patient encounter procedure Peter Rush [facility] Start: 01-11-2022 End: 01-12-[address] PETER RUSH Facility:[facility] Start: 04-06-2021 End: 04-07-[address] PETER RUSH Facility:[facility] Start: 02-20-2021 End: 02-20-[address] PETER RUSH Facility:[facility] Start: 04-04-2020 Adult health examination Peter Rush Other [employer] Other Procedures Date Procedure Procedure Detail Performing [...] Start: 09-26-2025 Diabetes Screening Diabetes Screenin g [facility] Start: 06-09-2023 Colonoscopy COLONOSCOPY [facility] Start: 06-09-2023 COLORECTAL CANCER SCREENING COLORECTAL CANCER SCREENING [facility] Start: 01-24-2023 Covid-19 Vaccine ( season) Covid-19 Vaccine ( season) [facility] Start: 01-24-2023 Influenza vaccination Influenza Vacc ine (#1) [facility] Start: 09-25-2022 End: 11-25-2022 CBC W Auto Differential panel - Blood CBC + DIFF Lab Routine Polyp of colon, unspecified part of colon, unspecified type Liver hemangioma Expected: 09/25/2022, Expires: 11/25/2022 [facility] Work Phone: Comment on above: Expected: 09/25/2022 , Expires: 11/25/2022 Start: 09-25-2022 End: 11-25-2022 Comprehensive metabolic 2000 panel - Serum or Plasma COMP METABOLIC PANEL Lab Routine Polyp of colon, unspecified part of colon, unspecified type Liver hemangioma Expected: 09/25/2022, Expires: 11/25/2022 [facility] Work Phone: Comment on above: Expected: 09/25/2022 , Expires: 11/25/2022 Start: 2022 ADVANCE DIRECTIVE DISCUSSION ADVANCE DIRECTIVE DISCUSSION [facility] Start: 2022 BONE DENSITY BONE DENSITY [facility] Start: 2022 Bone Density Screening Bone Density Screening [facility] Start: 2022 Pneumococcal Vaccine : 65+ (1 - PCV) Pneumococcal Vaccine: 65+ (1 - PCV) [facility] Start: 2022 PNEUMOCOCCAL: 65+ (1 - PCV) PNEUMOCOCCAL: 65+ (1 - PCV) [facility] Start: 05-26-2022 DEPRESSION ASSESSMENT DEPRESSION ASS ESSMENT [facility] Start: 09-29-2020 COVID-19 VACCINE (2 - Booster for Roe series) COVID-19 VACCINE (2 - Booster for Roe series) [facility] Start: 04-26-2018 DIABETES SCREEN DIABETES SCREEN [facility] Start: 2017 RSV Vaccine (1 - 1-d ose 60+ series) RSV Vaccine (1 - 1-dose 60+ series) [facility] Start: 2007 SHINGRIX VACCINE (1 of 2) SHINGRIX VACCINE (1 of 2) [facility] Start: 2002 COLOGUARD (FIT-DNA) COLOGUARD (FIT-D NA) [facility] Start: [address] COLONOGRAPHY [facility] Start: 2002 FECAL OCCULT BLOOD FECAL OCCULT BLOO D [facility] Start: 2002 Lipid 1996 panel - S fernando or Plasma Lipid Screening [facility] Start: 2002 LIPID SCREEN LIPID SCREEN [facility] Start: 2002 SIGMOIDOSCOPY SIGMOIDOSCOPY [facility] Start: 1997 Mammography [facility] Start: 1976 Urine microalbumin profile [facility] Start: 1975 HEPATITIS C SCREENING HEPATITIS C SC REENING [facility] Start: 1975 HIV SCREENING HIV SCREENING [facility] End: 09-26-2023 COLONOSCOPY DIAGNOSTIC COLONOSCOPY DIAGNOSTIC Endoscopy Routine Polyp of colon, unspecified part of colon, unspecified type Liver hemangioma 1 Occurrences starting 09/25/2022 until 09/26/2023 [facility] Work Phone: Comment on above: 1 Occurrences starti ng 09/25/2022 until 09/26/2023 End: 10-25-2023 US ABD RIGHT UPPER QUADRANT US ABD RIGHT UPPER QUADRANT Radiology Routine Polyp of colon, unspecified part of colon, unspecified type Liver hemangioma 1 Occurrences starting 09/25/2022 until 10/25/2023 [facility] Work Phone: Comment on above: 1 Occurrences starti ng 09/25/2022 until 10/25/2023 XR Knee - bilateral [address] [facility] XR Knee - right 4 Views [facility] XR Pelvis 1 or 2 Views [facility] Immunizations Immunization Date Immunization Notes Care Provider Fa cili 04-09-2022 influenza, high dose seasonal, preservative-free Peter Rush Other [employer] Other 04-09-2022 influenza virus vaccine, split virus (incl. purified surface antigen) Peter Rush Other [employer] Other 04-09-2022 influenza virus vaccine, unspecified formulation Ultra 2 Work Phone: [facility] 03-24-2021 influenza virus vaccine, split virus (incl. purified surface antigen) Peter Rush Other [employer] Other 03-24-2021 influenza virus vaccine, unspecified formulation [facility] 08-04-2020 COVID-19 Vaccine Roe - Documentation Purposes Only Peter Rush Other [facility] 02-23-2017 tetanus and diphther ia toxoids, adsorbed, preservative free, for adult use (5 Lf of tetanus toxoid and 2 Lf of diphtheria toxoid) Peter Rush Other [facility] 03-15-2016 tetanus and diphther ia toxoids, adsorbed, preservative free, for adult use (5 Lf of tetanus toxoid and 2 Lf of diphtheria toxoid) Peter Rush Other [facility] Payers Date Payer Category Payer Unknown [id number] 2022 Unknown [id number] 2022 Medicare [id number] 2022 Medicare [id number] 1959 Unknown [id number] 1957 Unknown [id number] 1957 Unknown [id number] 1957 Unknown [id number] 1957 Unknown [id number] 1957 Unknown [id number] 1957 Unknown [id number] 1957 Unknown [id number] 1957 Unknown [id number] 1957 Unknown [id number] 1957 Unknown [id number] Private Health Insurance [employer] [id number] Social History Date Type Detail Facility Start: 09-02-2018 End: 09-25-2022 Sex Assigned At [facility] Start: 08-24-2013 End: 03-23-2024 Tobacco smoking status ILIS Never smoked tobacco [facility] Start: 08-24-2013 Tobacco use and exposure Smokeless tobacco non-user [facility] Start: 09-02-2018 Alcohol intake Current drinke r of alcohol (finding) [facility] Start: 08-24-2013 Alcohol Comment occ. [facility] Start: 1955 Sex Assigned At Female [facility] Start: 09-02-2018 End: 09-25-2022 History of Social function [facility] National Score (1-100), lower number is lower risk 67 [facility] [place] Start: 04-11-2021 Gender identity Identifies as female gender (finding) [facility] Start: 11-24-2023 Tobacco smoking stat us ILIS Ex-smoker (finding) [facility] Sex Female (finding) [facility] Procedure Code Equipment Code Equipment Origin al Text Equipment Identifier Dates [id number] Implant - Crushed Cancellous 15cc [id number] Start: 07-19-2016 Comment on above: Description: ONE-OF- A-KIND IMPLANT - Crushed Cancellous 15cc. Brought into room at 0840. Handed sterily to field by Donovan Christensen RN to Abigail Hayes CHAIN MAKER LOOM CONTROL at 1015. Also handled by Moe Ulrich MD, and Abigail Carey MD. No preparation required. Plate Lcp Long T Stainless Steel 61mm Bone 2 Hole Variable Angle Fusion - [id number] Start: 07-19-2016 Screw Lcp 2.7mm T8 Stainless Steel 22mm Bone Variable Angle Lock Self Tap - [id number] Start: 07-19-2016 Washer Surfix 3.5mm Stainless Steel Orthopedic Lock Midfoot - [id number] Start: 07-19-2016 Functional Status Date Assessment Result Facility 03-24-2024 Functional Status N/A [facility] [place] 01-27-2024 Functional Status N/A [facility] [place] Clinical Notes 08-26-2022 to 12-14-2024 Note Date & Type Note Facility 12-14-2024 Evaluation note Diagnosis Onset Date Resolution Primary osteoarthritis of knees, bilateral acute December 14, 2 025 10:40am [facility] Work Phone: 1(311) 562-147809-03-2024 NoteGeneral Surgery Office/Clinic Note Chief Complaint consultation for colonoscopy and [...] Celebrex daily; no tobacco use; no fmhx ofGI malignancy or IBD. Review of Systems PHQ Score Initial Depression Screen Score: 0 SCORE ROS - Provider Constitutional: no fever, no sweats, no weight loss. Eyes: no glasses, no blurred vision, no visual loss. ENMT: no dentures, no hoarseness, no swallowing difficulties, no hearing loss, no ear infection(s),no nose bleeds. Cardiovascular: normal blood pressure, no [...] Date Status SARS-CoV-2 (COVID-19) Ad26 vaccine 08/04/2020 RecordedSelect [facility] NorthComment on above:Result Comment: Electronically Signed By: ABDULAZIZ WILSON, Cristian Doshi\Date and Time Signed: 01/27/24 16:18 [id number] Instructions* Patient Instructions* Yolanda Gutierrez MD - 09/25/2022 2:14 PM EDT Images from the original note were not included. Nice to see you today Bettina: Will obtain labs today liver US colonoscopy with me next available Bowel Preparation Instructions for: Golytely, Nulytely, Trilyte or Colyte (polyethylene glycol 3350and electrolytes) IF YOU DO NOT FOLLOW THESE [...] If you do not have a responsible telephone directory distributor driver (family member or friend) with you to take you home, your exam cannot be done with sedation and will be cancelled. Please bring a list of all of your current medications, including any Over-the Counter medications with you. Medications If you take insulin, diabetic medications or blood thinners such as Coumadin (warfarin), Plavix (clopidogrel), Ticlid (ticlopidine hydrochloride), Agrylin (anagrelide), Xarelto (Rivaroxaban), Pradaxa(Dabigatran), Eliquis (Apixaban), and Effient (Prasugrel). You MUST [...] Golytely, Nulytely, Trilyte or Colyte (polyethylene glycol 3350and electrolytes) Three (3) Days Before Your Colonoscopy [...] If you do not have a responsible telephone directory distributor driver (family member or friend) withyou to take you home, your exam cannot be done with sedation and will be cancelled. Please bring a list of all of your current medications, including any [id number] medications with you. Medications If you take insulin, diabetic medications or blood thinners such as Coumadin (warfarin), Plavix (clopidogrel), Ticlid (ticlopidine hydrochloride), Agrylin (anagrelide), Xarelto (Rivaroxaban), Pradaxa(Dabigatran), Eliquis (Apixaban), and Effient (Prasugrel). You MUST [...] every 15 minutes for a total of 2glasses. You may continue to drink clear liquids up to (three) 3 hours before your exam. 2 04/2019 [facility] History and physical note * Yolanda Gutierrez MD - 09/25/2022 2:03 PM EDT Hepatology [facility] HPI consult by Dr Rush [...] MD cc dr Rush documented [facility] Evaluation note* Encounter Date Diagnosis Assessment Notes Treatment Notes Treatment Clinical Notes Aug, Menopause (ICD-10 - Z78.0) [facility] [employer] Other 04-03-2023 Evaluation note* Encounter Date Diagnosis [...] and consequences of not detecting early cancer [employer] [facility] [employer] Other Evaluation + Plan note No data available for this section [facility] Evaluation note* Diagnosis Polyp of colon, unspecified part of colon, unspecified type- Primary Liver hemangioma Hemangioma of intra-abdominal structures documented in this encounter [facility] note* Diagnosis Polyp of colon, unspecified part of colon, unspecified type Liver hemangioma Hemangioma of intra-abdominal structures documented in this encounter [facility] noteNo InformationNortSurgical [facility] [employer] Other Evaluation note* Diagnosis Onset Date Resolution Status Cavernous hemangioma of liver acute Knee pain, bilateral acute Menopause acute Obesity acute Screening for colon cancer a cute Medicare annual wellness visit, initial noneactive Screening mammogram for breast cancer noneactive [facility] Work Phone: Evaluation noteNo assessment information available [facility] Work Phone: History general Narrative - Reported* Type Description Date Medical History frequent UTI Medical History hysterectomy Medical History Atrophic vaginitis Medical History History of nephrolithiasis Medical History Salmonella gastroenteritis Medical History Diarrhea Medical History Cavernous hemangioma of liver Surgical History hysterectomy Surgical History bilateral foot surgeries Surgical History CYSTOSCOPY 2012 Surgical History COLONSCOPY 2013 Hospitalization History hysterectomy Hospitalization History c section, childbirth [facility] Other Hospital Discharge instructions No data available for this section [facility] Progress note No data available for this section [facility] Reason for referral (narrative)* Outpatient Procedure (Routine) - Authorized Specialty Diagnoses / Procedures Referred By Ernst berry Referred To Contact [facility] Diagnoses Polyp of colon, unspecified part of colon, unspecified type Liver hemangioma Procedures COLONOSCOPY DIAGNOSTIC COLONOSCOPY FLX DX W/COLLJ SPEC WHEN PFRMD Yolanda Stafford MD [address] [place] [address] [facility] [place] [address] Referral ID Status Reason Start Date Expiration Date Visits Requested Visits Authorized [id number] Authorized Auto-Generat ed Referral 09/25/2022 09/26/2023 1 1 * Diagnostic Procedure Only (Routine) - Authorized Specialty Diagnoses / Procedures Referred By Contac t Referred To Contact US IMAGING Diagnoses Polyp of colon, unspecified part of colon, unspecified type Liver hemangioma Procedures US ABD RIGHT UPPER QUADRANT US ABDOMINAL REAL TIME W/IMAGE LIMITED Yolanda Stafford MD [address] [place] [address] Us Imaging Referral ID Status Reason Start Date Expiration Date Visits Requested Visits Authorized [id number] Authorized Auto-Generat ed Referral 09/25/2022 10/25/2023 1 1 [facility] for referral (narrative)* Diagnostic Procedure Only (Routine) - Closed Specialty Diagnoses / Procedures Referred By Ernst t Referred To Contact US IMAGING Diagnoses Polyp of colon, unspecified part of colon, unspecified type Liver hemangioma Procedures US ABD RIGHT UPPER QUADRANT US ABDOMINAL REAL TIME W/IMAGE LIMITED Yolanda Stafford MD [address] [place] [address] Us Imaging [place] [address] Referral ID Status Reason Start Date Expiration Date V isits Requested Visits Authorized [id number] Closed Auto-Generate d Referral 09/25/2022 10/25/2023 1 1 [facility] for referral (narrative)No reason for referral information available[facility] Work Phone: Reason for visit Narrative* Diagnostic Procedure Only (Routine) - Closed Specialty Diagnoses / Procedures Referred By Ernst t Referred To Contact US IMAGING Diagnoses Polyp of colon, unspecified part of colon, unspecified type Liver hemangioma Procedures US ABD RIGHT UPPER QUADRANT US ABDOMINAL REAL TIME W/IMAGE LIMITED Yolanda Stafford MD [address] [place] [address] Us Imaging [place] 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 DATE CREATED AUTHOR AUTHOR'S ORGANIZ ATION 09/27/2022 [facility] DATE CREATED AUTHOR AUTHOR'S ORGANIZ ATION 10/04/2022 [facility] DATE CREATED AUTHOR AUTHOR'S ORGANIZ ATION 03/26/2024 [facility] DATE CREATED AUTHOR AUTHOR'S ORGANIZ ATION 12/25/2024 [facility] REASON FOR VISIT (unrecogniz ed section and content) Reason Comments New Patient Source Comments (unrecognize d section and content) In the event this informatio n is protected by the Federal Confidentiality of Alcohol and Drug Abuse Patient Records regulations: The Federal rules restrict any use of the information to criminally investigate or prosecute any alcohol or drug abuse patient.[facility] the event this information is protected by the Federal Confidentiality of Alcohol and Drug Abuse Patient Records regulations: The Federal rules restrict any use of the information to criminally investigate or prosecute any alcohol or drug abuse patient.[facility] Care Teams (unrecognized sec tion and content) Television Maintenance Man Relationship Specialty Start Date End Date Peter Rush DO PCP - General Internal Medicine 09/11/12 Television Maintenance Man Relationship Specialty Start Date End Date Peter [...] December 14, 2024 End: December 14, 2024 Team Status: Inactive Member Role Status Dates Peter Rush DO Primary Care Provider Active Start: January 26, 2025 End: January 26, 2025 Randy Valentine II, MD Attending Provider Active Start: January 26, 2025 End: January 26, 2025 Goals (unrecognized section and content) Goals may [...] BE BASED ON THE PRIMARY CLINICAL RECORDS. [employer] [address] [facility]. provides no warranty or guarantee of the accuracy or completeness of information in this document.
--- OUTSIDE RECORDS SUMMARY | 2025-02-02 10:17 | XMS_ITS | Encounter Summary ---
Author Organization [facility] Address [address] [place] [address] Care Team Providers Care Freight Loader Name Role Phone Peter Rush DO Primary Care Provider [phone] Source Comments In the event this information is protected by the Federal Confidentiality of Alcohol and Drug AbusePatient Records regulations: The Federal rules restrict any use of the information to criminally investigate or prosecute any alcohol or drug abuse patient.[facility] Encounter Details Date Type Department Care Team (Late st Contact Info) Description 02/22/2015 Patient Msg Medical Records [address] [place] [address] Provider, Ccf RE: Request an Appointment Social History Tobacco Use Types Packs/Day Years [...] on filedocumented in this encounter Care Teams Freight Loader Relationship Specialty Start Date End Date Peter Rush DO PCP - General Internal Medicine 09/11/12 documented as of this encounter
--- OUTSIDE RECORDS SUMMARY | 2025-02-02 10:17 | XMS_ITS | Encounter Summary ---
Author Organization [facility] Address [address] [place] [address] Care Team Providers Care Pulp Press Tender Name Role Phone Peter Rush DO Primary Care Provider [phone] Source Comments In the event this information is protected by the Federal Confidentiality of Alcohol and Drug AbusePatient Records regulations: The Federal rules restrict any use of the information to criminally investigate or prosecute any alcohol or drug abuse patient.[facility] Encounter Details Date Type Department Care Team (Late st Contact Info) Description 01/13/2023 Patient Msg Gastroenterology [address] [place] [id number] Provider, Ccf appointment cancellation Social History Tobacco [...] is lower risk 4 09/25/2022 Data from: https://www.neighborhoodatlas.medicine.[facility].edu/. Last address used for calculation [address] [...] on filedocumented in this encounter Care Teams Pulp Press Tender Relationship Specialty Start Date End Date Peter Rush DO PCP - General Internal Medicine 09/11/12 documented as of this encounter
--- OUTSIDE RECORDS SUMMARY | 2025-02-02 10:17 | XMS_ITS | Patient Health Record ---
Author Organization [facility] Address [address] [place] [address] Care Team Providers Care Warp Clamper Name Role Phone ARANZA PICHARDO DO Primary Care Provider Sonny Luis Unavailable [phone] Matias Nay Unavailable [phone] Reason For Referral No Information Social History [...] Status Risk Notes Problem Osteoarthritis of knee (516708591) Bilateral primary osteoarthritis of knee (M17.0) Active confirmed Vital Signs Height 5'6 in 05/03/2024 Weight 220 lbs 05/03/2024 BMI 35.51 05/03/2024 Encounters Encounter Location Date Provider Diagnosis [facility] [address] [place] [address] [place] [address] 05/03/2024 [facility] Bilateral primary osteoarthritis of knee M17.0 [facility] [address] [place] [address] [place] [address] 2024 [facility] Bilateral primary osteoarthritis of knee M17.0 Assessments [...] Date Coverage End [place] [address] [place] [address] [id number] RADHA REED Self - patient is the insured Medical [facility] [address] [place] [address] [id number] RADHA REED Self - patient is the insured Medications Administered Medication Instructions Date of Administration Dosage Notes Depo-Medrol 05/03/2024 2 mL lidocaine 05/03/2024 4 mL
--- OUTSIDE RECORDS SUMMARY | 2025-02-02 10:17 | XMS_ITS | Encounter Summary ---
Author Organization [facility] Address [address] [place] [address] Care Team Providers Care Manager Track Name Role Phone Peter Rush DO Primary Care Provider [phone] Source Comments In the event this information is protected by the Federal Confidentiality of Alcohol and Drug AbusePatient Records regulations: The Federal rules restrict any use of the information to criminally investigate or prosecute any alcohol or drug abuse patient.[facility] Encounter Details Date Type Department Care Team (Late st Contact Info) Description 02/23/2015 Patient Msg Medical Records [address] [place] [address] Provider, Ccf RE: Appointment Cancellation Request Social [...] on filedocumented in this encounter Care Teams Manager Track Relationship Specialty Start Date End Date Peter Rush DO PCP - General Internal Medicine 09/11/12 documented as of this encounter
--- OUTSIDE RECORDS SUMMARY | 2025-02-02 10:18 | XMS_ITS | Encounter Summary ---
Author Organization [facility] Address [address] [place] [address] Care Team Providers Care Fryer Line Helper Name Role Phone Peter Rush Mela CHAIREZ Primary Care Provider [phone] Source Comments In the event this information is protected by the Federal Confidentiality of Alcohol and Drug AbusePatient Records regulations: The Federal rules restrict any use of the information to criminally investigate or prosecute any alcohol or drug abuse patient.[facility] Encounter Details Date Type Department Care Team (Late st Contact Info) Description 01/04/2014 Abstract Urology [address] [place] [address] Jannet Galindo, DOCK LOADER.[facility] [address] [place] [address] Social History Tobacco Use Types Packs/Day Years [...] kidney documented in this encounter Care Teams Fryer Line Helper Relationship Specialty Start Date End Date Peter Rush DO PCP - General Internal Medicine 09/11/12 documented as of this encounter
--- OUTSIDE RECORDS SUMMARY | 2025-02-02 10:18 | XMS_ITS | Encounter Summary ---
Author Organization [facility] Address [address] [place] [address] Care Team Providers Care Wood Lathe Operator Name Role Phone Peter Rush DO Primary Care Provider [phone] Source Comments In the event this information is protected by the Federal Confidentiality of Alcohol and Drug AbusePatient Records regulations: The Federal rules restrict any use of the information to criminally investigate or prosecute any alcohol or drug abuse patient.[facility] Encounter Details Date Type Department Care Team (Late st Contact Info) Description 11/10/2013 Patient Msg Medical Records [address] [place] [address] Provider, Cc RE: Patient Registration Completed Social [...] on filedocumented in this encounter Care Teams Wood Lathe Operator Relationship Specialty Start Date End Date Peter Rush DO PCP - General Internal Medicine 09/11/12 documented as of this encounter
--- OUTSIDE RECORDS SUMMARY | 2025-02-02 10:18 | XMS_ITS | Encounter Summary ---
Author Organization [facility] Address [address] [place] [address] Care Team Providers Care Director Consumer Name Role Phone Peter Rush DO Primary Care Provider [phone] Source Comments In the event this information is protected by the Federal Confidentiality of Alcohol and Drug AbusePatient Records regulations: The Federal rules restrict any use of the information to criminally investigate or prosecute any alcohol or drug abuse patient.[facility] Encounter Details Date Type Department Care Team (Late st Contact Info) Description 07/29/2013 Patient Msg Medical Records [address] [place] [address] Provider, Ccf [facility] Medical Procedure Social [...] filedocumented in this encounter Care Teams Director Consumer Relationship Specialty Start Date End Date Peter Rush DO PCP - General Internal Medicine 09/11/12 documented as of this encounter
--- OUTSIDE RECORDS SUMMARY | 2025-02-02 10:18 | XMS_ITS | Patient Health Record ---
Author Organization [facility] Address [address] [place] [address] Care Team Providers Care Paper Tube Grader Name Role Phone Peter Rush DO Primary Care Provider Ratna Fontaine [phone] Allergies Allergen (clinical drug ingredient) Drug/Non Drug Allergy documented on EMR Reaction Allergy Type Onset Date Status Vicodin Unknown Drug Allergy Active oxycodone oxyCODONE Unknown Drug Allergy Active morphine Morphine Unknown Drug Allergy Active Results Component Value Reference Range Notes XR DEXA axial skeleton (Not yet reviewed by provider) Interpretation: Performing Lab: Notes/Report: Source Facility: [place] [address] XRay Report Signed Patient: BETTINA REED MR#: [id number] : 1955 Acct:[id number] Age/Sex: 69 / F ADM Date: 06/21/24 Loc: CT Attending Dr: Ratna Luke D.P.M. Ordering Physician: Ratna Luke D.P.M. Date of Service: 06/21/24 Procedure(s): XR DEXA axial skeleton Accession Number(s): [id number] cc: Peter Rush D.O.; Ratna Luke D.P.M. [place] [address] Patient Name: BETTINA REED MRN: [id number] date: 1955 Sex: F Assigned Patient Location: CT Current Patient Location: CT Accession/Order Number: [id number] Exam Date: 06/21/2024 08:45 Report Date: 06/21/2024 [...] prevention and treatment of osteoporosis. Osteoporos Int. 2021;33(10):1295-8887. doi: 10.1007/n34201-830-64446-w. Epub 2021Sep 20. Erratum in: Osteoporos Int. 2021Dec 20;: PMID: 64636781; PMCID: [id number]. Electronically authenticated by: SONNY RANKIN Date: 06/21/2024 10:13 Dictated By: Sonny Rankin M.D. Signed By: 06/21/24 1015 DD/ 1013 TD/TT: Land Leases And Rentals Manager: [place] [address] XRay Report Signed Patient: ZACK REED MR#: [id number] : 1955 Acct:[id number] Age/Sex: 69 / F ADM Date: 06/21/24 Loc: CT Attending Dr: Ratna Luke D.P.M. Ordering Physician: Ratna Luke D.P.M. Date of Service: 06/21/24 Procedure(s): XR DEX A axial skeleton Accession Number(s): [id number] cc: Peter Rush; Ratna Luke D.P.M. [place] [id number] Patient Name: BETTINA REED MRN: [id number] date: 1955 Sex: F Assigned Patient Location: CT Current Patient Location: CT Accession/Order Numb er: [id number] Exam Date: 06/21/2024 08:45 Report Date: 06/21/2024 [...] 13]. Chris MS, Nesha SL, Chloé KL, Himansuh EM, Christopher KG, AJ, Arabella ES. The clinician's guid e to prevention and treatment of osteoporosis. Osteoporos Int. 2021;33(10) :1960-7659. doi: 10.1007/k96980-300-69311-a. Epub 2021Sep 20. Erratum in: Oste oporos Int. 2021Dec 20;: PMID: 74420081; PMCID: [id number]. Electronically authe nticated by: SONNY RANKIN Date: 06/21/2024 10:13 Dictated By: Sonny Rankin M.D. Signed By: 06/21/24 1015 DD/ 1013 TD/TT: Land Leases And Rentals Manager: CT FOOT LT WO CON (Not yet r eviewed by provider) Interpretation: Performing Lab: Notes/Report: Source Facility: [place] [address] [place] [address] CT Scan Report Signed Patient: BETTINA REED MR#: [id number] : 1955 Acct:[id number] Age/Sex: 69 / F ADM Date: 06/21/24 Loc: CT Attending Dr: Ratna Luke D.P.M. Ordering Physician: Ratna Luke D.P.M. Date of Service: 06/21/24 Procedure(s): CT foot LT wo con Accession Number(s): [id number] cc: Peter Rush D.O. [place] [address] Patient Name: BETTINA REED MRN: [id number] date: 1955 Sex: F Assigned Patient Location: CT Current Patient Location: CT Accession/Order Number: [id number] Exam Date: 06/21/2024 08:45 Report Date: 06/21/2024 [...] bones. 3. Calcaneal enthesopathy. Electronically authenticated by: JORGE BRONSON Date: 06/21/2024 12:34 Dictated By: Jorge Bronson M.D. Signed By: 06/21/24 1237 DD/ 1234 TD/TT: Land Leases And Rentals Manager: [place] [address] CT Scan Report Signed Patient: ZACK REED MR#: [id number] : 1955 Acct:[id number] Age/Sex: 69 / F ADM Date: 06/21/24 Loc: CT Attending Dr: Ratna Luke D.P.M. Ordering Physician: Ratna Luke D.P.M. Date of Service: 06/21/24 Procedure(s): CT foot LT wo con Accession Number(s): [id number] cc: Peter Rush D.O. [place] [address] Patient Name: BETTINA REED MRN: [id number] date: 1955 Sex: F Assigned Patient Location: CT Current Patient Location: CT Accession/Order Numb er: [id number] Exam Date: 06/21/2024 08:45 Report Date: 06/21/2024 [...] 3. Calcaneal enthesopathy. Electronically authe nticated by: JORGE RBONSON Date: 06/21/2024 12:34 Dictated By: Jorge Bronson M.D. Signed By: 06/21/24 1237 DD/ 1234 TD/TT: Land Leases And Rentals Manager: XR foot LT min 3V (Not yet r eviewed by provider) Interpretation: Performing Lab: Notes/Report: Source Facility: [place] [address] XRay Report Signed Patient: BETTINA REED MR#: [id number] : 1955 Acct:[id number] Age/Sex: 69 / F ADM Date: 06/15/24 Loc: RAD Attending Dr: Ratna Luke D.P.M. Ordering Physician: Ratna Luke D.P.M. Date of Service: 06/15/24 Procedure(s): XR foot LT min 3V Accession Number(s): [id number] cc: Peter Rush D.O.; Ratna Luke D.P.M. [place] [address] Patient Name: BETTINA REED MRN: [id number] date: 1955 Sex: F Assigned Patient Location: RAD Current Patient Location: RAD Accession/Order Number: [id number] Exam Date: 06/15/2024 09:20 Report Date: 06/15/2024 [...] Signed By: 06/15/24 1311 DD/ 1308 TD/TT: Land Leases And Rentals Manager: [place] [address] XRay Report Signed Patient: ZACK REED MR#: [id number] : 1955 Acct:[id number] Age/Sex: 69 / F ADM Date: 06/15/24 Loc: RAD Attending Dr: Ratna Luke D.P.M. Ordering Physician: Ratna Luke D.P.M. Date of Service: 06/15/24 Procedure(s): XR foot LT min 3V Accession Number(s): [id number] cc: Peter Rush; Ratna Luke D.P.M. [place] [id number] Patient Name: BETTINA REED MRN: [id number] date: 1955 Sex: F Assigned Patient [facility]: [facility] Current Patient Location: RAD Accession/Order Numb er: [id number] Exam Date: 06/15/2024 09:20 Report Date: 06/15/2024 [...] Signed By: 06/15/24 1311 DD/ 1308 TD/TT: Land Leases And Rentals Manager: Reason For Referral Reason Referral to Diagnosis 1 Primary osteoarthrit is, left ankle and foot (M19.072) Referral Organization [facility] (PODIATRY) Referring Provider First Name Ratna Referring Provider Last Name [facility] Referring Provider Speciality Podiatry Referred Provider Specialty Pain Medicin e Referral Priority Routine Reason new referral Diagnosis 1 Left foot pain (M79. 672) Diagnosis 2 Primary osteoarthrit is, left ankle and foot (M19.072) Referral Organization [facility] ([facility]OD[facility]) Referring Provider First Name Ratna Referring Provider Last Name [facility] Referring Provider [facility] Podiatry Referred Provider Pain Management, [facility] Referred Provider Specialty Pain Medicin e [...] Problem Status W/U Status Risk Notes Problem [id number] Primary osteoarthri tis, left ankle and foot (M19.072) Active confirmed Problem Pain in left foot ([id number]) Left foot pain (M79.672) Active confirmed Vital Signs Heart Rate 82 /min 06/22/2024 Temperature 97.8 degrees Fahrenheit 06/22/2024 Respiratory Rate 16 /min 06/15/2024 Oximetry 99 % 06/22/2024 Height 66 in 06/22/2024 Weight 220 lbs 06/15/2024 BMI 35.51 kg/m2 06/15/2024 Encounters Encounter Location Date Provider Diagnosis [facility] (PODIATRY) [address] [place] [address] [place] [address] 06/15/2024 Ranta Luke Left foot pain M79.672 and Primary osteoarthritis, left ankle and foot M19.072 [facility] (PODIATRY) [address] [place] [address] [place] [address] 06/22/2024 Ratna Luke Primary osteoarthritis, left ankle [...] arthritis. She underwent right midfoot fusion in [place] several years ago and is very happy [...] tarsometatarsal joint and naviculocuneiform joint fusion in [place] years ago. She is having similar symptoms [...] End Date MEDIC[place] [address] [place] [address] [id number] Bettina Reed Self - patient is the insured O [address] [place], [place] [id number] Bettina Reed Self - patient is the insured Medical (General) History Medical History History ICD Code acid reflux osteoarthritis varicose veins Surgical History Surgery Date(Month/Year) Hysterectomy 1997 lithotripsy 2012 lobectomy 2014 lumbar surgery 2015 right foot surgery [facility] 2017
--- OUTSIDE RECORDS SUMMARY | 2025-02-02 10:18 | XMS_ITS | Encounter Summary ---
Author Organization [facility] Address [address] [place] [address] Care Team Providers Care Web Operations Administrator Name Role Phone Peter Rush Mela CHAIREZ Primary Care Provider [phone] Source Comments In the event this information is protected by the Federal Confidentiality of Alcohol and Drug AbusePatient Records regulations: The Federal rules restrict any use of the information to criminally investigate or prosecute any alcohol or drug abuse patient.[facility] Encounter Details Date Type Department Care Team (Late st Contact Info) Description 08/18/2019 Patient Msg Urology [address] [place] [address] Jannet Galindo, FACE AND FILL PACKER.[facility] [address] [place], [place] [id number] Appointment Cancellation Request Social History Tobacco Use [...] on filedocumented in this encounter Care Teams Web Operations Administrator Relationship Specialty Start Date End Date Peter Rush DO PCP - General Internal Medicine 09/11/12 documented as of this encounter
--- OUTSIDE RECORDS SUMMARY | 2025-02-02 10:18 | XMS_ITS | Encounter Summary ---
Author Organization [facility] Address [address] [place] [address] Care Team Providers Care Engineering Leader Name Role Phone Peter Rush DO Primary Care Provider [phone] Source Comments In the event this information is protected by the Federal Confidentiality of Alcohol and Drug AbusePatient Records regulations: The Federal rules restrict any use of the information to criminally investigate or prosecute any alcohol or drug abuse patient.[facility] Encounter Details Date Type Department Care Team (Late st Contact Info) Description 03/11/2014 Patient Msg Medical Records [address] [place] [address] Provider, Ccf RE: Appointment Cancellation Request Social [...] on filedocumented in this encounter Care Teams Engineering Leader Relationship Specialty Start Date End Date Peter Rush DO PCP - General Internal Medicine 09/11/12 documented as of this encounter
--- OUTSIDE RECORDS SUMMARY | 2025-02-02 10:18 | XMS_ITS | Encounter Summary ---
Author Organization [facility] Address [address] [place] [address] Care Team Providers Care Telegraph Lineman Name Role Phone Peter Rush DO Primary Care Provider [phone] Source Comments In the event this information is protected by the Federal Confidentiality of Alcohol and Drug AbusePatient Records regulations: The Federal rules restrict any use of the information to criminally investigate or prosecute any alcohol or drug abuse patient.[facility] Encounter Details Date Type Department Care Team (Late st Contact Info) Description 03/11/2014 Patient Msg Medical Records [address] [place] [address] Provider, Ccf RE: Appointment Cancellation Request Social [...] on filedocumented in this encounter Care Teams Telegraph Lineman Relationship Specialty Start Date End Date Peter Rush DO PCP - General Internal Medicine 09/11/12 documented as of this encounter
--- OUTSIDE RECORDS SUMMARY | 2025-02-02 10:18 | XMS_ITS | Encounter Summary ---
Author Organization [facility] Address [address] [place] [address] Care Team Providers Care Explosive Expert Name Role Phone Peter Rush Primary Care Provider [phone] Source Comments In the event this information is protected by the Federal Confidentiality of Alcohol and Drug AbusePatient Records regulations: The Federal rules restrict any use of the information to criminally investigate or prosecute any alcohol or drug abuse patient.[facility] Encounter Details Date Type Department Care Team (Late st Contact Info) Description 02/19/2017 Get Medical Advice Orthopaedics [address] [id number] Rajesh Ulrich MD [address] [place] [address] RE: Non-Urgent Medical Question Social [...] on filedocumented in this encounter Care Teams Explosive Expert Relationship Specialty Start Date End Date Peter Rush DO PCP - General Internal Medicine 09/11/12 documented as of this encounter
--- OUTSIDE RECORDS SUMMARY | 2025-02-02 10:18 | XMS_ITS | Encounter Summary ---
Author Organization [facility] Address [address] [place] [address] Care Team Providers Care Foot Setter Name Role Phone Peter Rush DO Primary Care Provider [phone] Source Comments In the event this information is protected by the Federal Confidentiality of Alcohol and Drug AbusePatient Records regulations: The Federal rules restrict any use of the information to criminally investigate or prosecute any alcohol or drug abuse patient.[facility] Encounter Details Date Type Department Care Team (Late st Contact Info) Description 04/08/2013 Patient Msg Medical Records [address] [place] [address] Provider, Ccf [facility] Medical Procedure Social [...] on filedocumented in this encounter Care Teams Foot Setter Relationship Specialty Start Date End Date Peter Rush DO PCP - General Internal Medicine 09/11/12 documented as of this encounter
--- OUTSIDE RECORDS SUMMARY | 2025-02-02 10:18 | XMS_ITS | Encounter Summary ---
Author Organization [facility] Address [address] [place] [address] Care Team Providers Care Cargo Operations Agent Name Role Phone Peter Rush Mela CHAIREZ Primary Care Provider [phone] Source Comments In the event this information is protected by the Federal Confidentiality of Alcohol and Drug AbusePatient Records regulations: The Federal rules restrict any use of the information to criminally investigate or prosecute any alcohol or drug abuse patient.[facility] Encounter Details Date Type Department Care Team (Late st Contact Info) Description 04/07/2021 Get Medical Advice Urology [address], [place] [phone] Jannet Galindo, ARMHOLE SEWER.BUSINESS SUPPORT ADMINISTRATOR [address] [place], [place] [phone] Non-Urgent Medical Question Social History Tobacco Use [...] N ot on file 04/30/2020 Data from: https://www.neighborhoodatlas.[facility]/. Last address used for calculation Not [...] on filedocumented in this encounter Care Teams Cargo Operations Agent Relationship Specialty Start Date End Date Peter Rush DO PCP - General Internal Medicine 09/11/12 documented as of this encounter
--- OUTSIDE RECORDS SUMMARY | 2025-02-02 10:18 | XMS_ITS | Clinical Summary ---
Author Organization [facility] Address [address] [place] [address] Care Team Providers Care Vulcanizer Name Role Phone Peter Rush DO Primary Care Provider Allergies Active Allergy Reactions Criticality Noted Date [...] is lower risk 4 09/25/2022 Data from: https://www.neighborhoodatlas.medicine.[facility].edu/. Last address used for calculation [address] [...] 06/09/2023 06/09/2013, 06/09/2013 Colorectal Cancer Screening 06/09/2023 Advance Directive Discussion 05/26/2024 Influenza Vaccine (#1) 2025 2, 03/14/2018, 02/23/2017 Diabetes Screening 09/26/2025 09/26/2022, 1 06/27/2014, 01/13/2015, Additional history exists RSV Vaccine (1 - 1-dose 75+ series) 2032 Medical Devices Implanted Type Area Booth Manager Device Identifier Shelf Expiration Date Model / Serial / Lot Graft Enhance Demineralized Cortical Fiber Bone Allograft Dehydrate 2.5ml - [id number] Implanted:Qty: 1 on 07/19/2016 at [facility] Implant Right: Bone - Foot MTF 08/01/2018 [id number] / [id number] / Description:graft brought in to room at 0840. Opened sterily to field by Donovan Christensen RN to Abigail Hayes CANE WEIGHER at 1015. Also handled by Moe Ulrich MD and Abigail Carey MD. No preparation required. [id number]-Hj-[id number] Implant - Crushed Cancellous 15cc Implanted:Qty: 1 on 07/19/2016 at [facility] Implant Right: Bone - Foot MTF 01/10/2019 [id number] / [id number] / Description:HSD-[id number]-KIND IM PLANT - Crushed Cancellous 15cc. Brought into room at 0840. Handed sterily to field by Donovan Christensen RN to Abigail Hayes CANE WEIGHER at 1015. Also handled by Moe Ulrich MD, and Abigail Carey MD. No preparation required. Plate 17mm Bone 2 Hole Compression Lower Extremity - [id number] Implanted:Qty: 1 on 07/19/2016 at [facility] Plate Right: Bone - Foot [employer] [id number] / / Plate Uni-Cp Stainless Steel 25mm Bone 2 Hole Compression - [id number] Implanted:Qty: 1 on 07/19/2016 at [facility] Plate Right: Bone - Foot [employer] [id number] / / Plate Lcp Long T Stainless Steel 61mm Bone 2 Hole Variable Angle Fusion - [id number] Implanted:Qty: 1 on 07/19/2016 at [facility] Plate Right: Bone - Foot [employer] 5 / / Screw Lcp 2.7mm T8 Stainless Steel 16mm Bone Variable Angle Lock Self Tap - [id number] Implanted:Qty: 1 on 07/19/2016 at [facility] Screw Right: Bone - Foot [employer] [place] 6 / / Screw Lcp 2.7mm T8 Stainless Steel 18mm Bone Variable Angle Lock Self Tap - [id number] Implanted:Qty: 1 on 07/19/2016 at [facility] Screw Right: Bone - Foot [employer] [place] 8 / / Screw Lcp 2.7mm T8 Stainless Steel 18mm Bone Stardrive Self Tap Modular - [id number] Implanted:Qty: 1 on 07/19/2016 at [facility] Screw Right: Bone - Foot [employer] [place] 202.878 / / Screw Lcp 2.7mm T8 Stainless Steel 16mm Bone Stardrive Self Tap Modular - [id number] Implanted:Qty: 1 on 07/19/2016 at [facility] Screw Right: Bone - Foot [employer] [place] 202.876 / / Screw Uni-Cp 3.5mm Stainless Steel 16mm Bone Lock Replacement Washer - [id number] Implanted:Qty: 2 on 07/19/2016 at [facility] Screw Right: Bone - Foot [employer] [id number] / / Screw Lcp 2.7mm T8 Stainless Steel 22mm Bone Variable Angle Lock Self Tap - [id number] Implanted:Qty: 1 on 07/19/2016 at [facility] Screw Right: Bone - Foot [employer] [place] 02..02 2 / / Screw Uni-Cp 3.5mm Stainless Steel 20mm Bone Lock Replacement Washer - [id number] Implanted:Qty: 1 on 07/19/2016 at [facility] Screw Right: Bone - Foot [employer] [id number] / / Screw Uni-Cp 3.5mm Stainless Steel 28mm Bone Lock Sterile Foot - [id number] Implanted:Qty: 1 on 07/19/2016 at [facility] Screw Right: Bone - Foot [employer] [id number] / / Screw Lcp 4mm 5mm 1.35mm .5 Thread Small Hexagon Reverse Cut Flute - [id number] Implanted:Qty: 1 on 07/19/2016 at [facility] Screw Right: Bone - Foot [employer] [place] 207.718 / / Screw Lcp 2.7mm T8 Stainless Steel 30mm Bone Stardrive Self Tap Modular - [id number] Implanted:Qty: 1 on 07/19/2016 at [facility] Screw Right: Bone - Foot [employer] 202.890 / / Washer Surfix 3.5mm Stainless Steel Orthopedic Lock Midfoot - [id number] Implanted:Qty: 4 on 07/19/2016 at [facility] Washer Right: Bone - Foot [employer] [id number] / / Procedures Procedure Name Priority Date/Time Associated Diagnosis Comments COMPREHENSIVE METABOLIC PANEL Routine 09/26/2022 1:20 PM EDT Polyp of colon, unspecified part of colon, unspecified type Liver hemangioma COLONOSCOPY - DIAGNOSTIC 06/09/2013 9:13 AM EST from Last 3 Months or Most Recently Relevant to Health Maintenance Results * COMP METABOLIC PANEL (09/26/2022 1:20 PM EDT) Pathologist [facility] Protein, Total 7.4 6.3 - 8.0 g/dL 09/26/2022 2:15 PM EDT [facility] Albumin 4.6 3.9 - 4.9 g/dL 09/26/2022 2:15 PM [facility] Calcium, Total 9.7 8.5 - 10.2 mg/dL 09/26/2022 2:15 PM [facility] Bilirubin, Total 0.5 0.2 - 1.3 mg/dL 09/26/2022 2:15 PM [facility] Alkaline Phosphatase 89 34 - 123 U/L 09/26/2022 2:15 PM [facility] AST 21 13 - 35 U/L 09/26/2022 2:15 PM [facility] ALT 28 7 - 38 U/L 09/26/2022 2:15 PM [facility] Glucose 98 74 - 99 mg/dL 09/26/2022 2:15 PM [facility] Comment: The [place] Diabetes Association (ADA) provides guidance for cutoff [...] Standards of Medical Care in Diabetes 2016, [place] Diabetes Association. Diabetes Care. 2016.39(Suppl 1). BUN 17 7 - 21 mg/dL 09/26/2022 2:15 PM [facility] Creatinine 0.68 0.58 - 0.96 mg/dL 09/26/2022 2:15 PM [facility] Sodium 142 136 - 144 mmol/L 09/26/2022 2:15 PM [facility] Potassium 4.6 3.7 - 5.1 mmol/L 09/26/2022 2:15 PM [facility] Chloride 104 97 - 105 mmol/L 09/26/2022 2:15 PM [facility] CO2 29 22 - 30 mmol/L 09/26/2022 2:15 PM [facility] Anion Gap 9 9 - 18 mmol/L 09/26/2022 2:15 PM EDT [facility] Estimated Glomerular Filtration Rate 97 >=60 mL/min/1.7 3m 09/26/2022 2:15 PM EDT [facility] Comment:Estimated Glomerular Filtration Rate (eGFR) [...] Yolanda Gutierrez MD LABORATORY Final Re sult [facility] [address] [place] [place] [address], * COLONOSCOPY - DIAGNOSTIC (06/09/2013 9:13 AM EST) Arrt Technologist A31 Gastrointestinal Endoscopy Patient Name: Bettina Larios Procedure Date: 06/09/2013 9:13 AM Date of : 1955 Admit Type: Outpatient Age: 57 Room: [facility] Procedure 10 ([facility]) Gender: Female Note Status: Finalized Attending MD: [...] Recently Relevant to Health Maintenance Insurance MEDICARE [facility] [place] [place] MEDICARE SUPPLEMENT Advance Directives Documents on File Type Date Recorded Patient Clinic Mgr Expl anation Advance Directive(s) 10/13/2013 10:12 PM Care Teams Vulcanizer Relationship Specialty Start Date End Date Peter Rush DO PCP - General Internal Medicine 09/11/12
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
== END 2025-02-02 10:13 | disposition home or self-care (01) ==
LOC: PM 10:12
PROVIDERS: PCP Internal Medicine; Visit Provider Nurse Practitioner
DX: M25.561 Pain in right knee (principal); M25.562 Pain in left knee; M17.0 Bilateral primary osteoarthritis of knee
CPT/HCPCS: G0463

== ENCOUNTER 2025-02-10 09:59 | Outpatient (OUT) | payer MEDICARE, OTHER, SELFPAY ==
--- OUTSIDE RECORDS SUMMARY | 2025-02-10 10:01 | XMS_ITS | Encounter Summary ---
Author Organization [facility] Address [address] [place] [address] Care Team Providers Care Medical Physiologist Name Role Phone Peter Rush DO Primary Care Provider [phone] Source Comments In the event this information is protected by the Federal Confidentiality of Alcohol and Drug AbusePatient Records regulations: The Federal rules restrict any use of the information to criminally investigate or prosecute any alcohol or drug abuse patient.[facility] Encounter Details Date Type Department Care Team (Late st Contact Info) Description 02/23/2015 Patient Msg Medical Records [address] [place] [address] Provider, Ccf RE: Appointment Cancellation Request Social [...] on filedocumented in this encounter Care Teams Medical Physiologist Relationship Specialty Start Date End Date Peter Rush DO PCP - General Internal Medicine 09/11/12 documented as of this encounter
--- OUTSIDE RECORDS SUMMARY | 2025-02-10 10:01 | XMS_ITS | Encounter Summary ---
Author Organization [facility] Address [address] [place] [address] Care Team Providers Care Ware Finisher Name Role Phone Peter Rush Primary Care Provider [phone] Source Comments In the event this information is protected by the Federal Confidentiality of Alcohol and Drug AbusePatient Records regulations: The Federal rules restrict any use of the information to criminally investigate or prosecute any alcohol or drug abuse patient.[facility] Encounter Details Date Type Department Care Team (Late st Contact Info) Description 02/15/2015 Get Medical Advice Neurology [address] [place], [place] [phone] Bettina Madrid MD [address] [place], [place] [phone] Test Result Question Social History Tobacco Use [...] on filedocumented in this encounter Care Teams Ware Finisher Relationship Specialty Start Date End Date Peter Rush DO PCP - General Internal Medicine 09/11/12 documented as of this encounter
--- OUTSIDE RECORDS SUMMARY | 2025-02-10 10:01 | XMS_ITS | Encounter Summary ---
Author Organization [facility] Address [address] [place] [address] Care Team Providers Care Bench Hand Name Role Phone Peter Rush DO Primary Care Provider [phone] Source Comments In the event this information is protected by the Federal Confidentiality of Alcohol and Drug AbusePatient Records regulations: The Federal rules restrict any use of the information to criminally investigate or prosecute any alcohol or drug abuse patient.[facility] Encounter Details Date Type Department Care Team (Late st Contact Info) Description 01/13/2023 Patient Msg Gastroenterology [address] [phone] Provider, Ccf appointment cancellation Social History Tobacco [...] is lower risk 4 09/25/2022 Data from: https://www.neighborhoodatlas.medicine.[facility].edu/. Last address used for calculation [...] on filedocumented in this encounter Care Teams Bench Hand Relationship Specialty Start Date End Date Peter Rush DO PCP - General Internal Medicine 09/11/12 documented as of this encounter
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
--- OUTSIDE RECORDS SUMMARY | 2025-02-10 10:02 | XMS_ITS | Encounter Summary ---
Author Organization [facility] Address [address] [place] [address] Care Team Providers Care Smudger Name Role Phone Peter Rush DO Primary Care Provider [phone] Source Comments In the event this information is protected by the Federal Confidentiality of Alcohol and Drug AbusePatient Records regulations: The Federal rules restrict any use of the information to criminally investigate or prosecute any alcohol or drug abuse patient.[facility] Encounter Details Date Type Department Care Team (Late st Contact Info) Description 07/29/2013 Patient Msg Medical Records [address] [place] [phone] Provider, [facility] Medical Procedure Social [...] on filedocumented in this encounter Care Teams Smudger Relationship Specialty Start Date End Date Peter Rush DO PCP - General Internal Medicine 09/11/12 documented as of this encounter
--- OUTSIDE RECORDS SUMMARY | 2025-02-10 10:02 | XMS_ITS | Encounter Summary ---
Author Organization [facility] Address [address] [place] [address] Care Team Providers Care Sewage Plant Supervisor Name Role Phone Peter Rush DO Primary Care Provider Source Comments In the event this information is protected by the Federal Confidentiality of Alcohol and Drug AbusePatient Records regulations: The Federal rules restrict any use of the information to criminally investigate or prosecute any alcohol or drug abuse patient.[facility] Encounter Details Date Type Department Care Team (Late st Contact Info) Description 03/11/2014 Patient Msg Medical Records [address] [place] [address] Provider, Ccf RE: Appointment Cancellation Request Social [...] on filedocumented in this encounter Care Teams Sewage Plant Supervisor Relationship Specialty Start Date End Date Peter Rush DO PCP - General Internal Medicine 09/11/12 documented as of this encounter
--- OUTSIDE RECORDS SUMMARY | 2025-02-10 10:02 | XMS_ITS | Encounter Summary ---
Author Organization [facility] Address [address] [place] [address] Care Team Providers Care Industrial Security Analyst Name Role Phone Peter Rush Primary Care Provider [phone] Source Comments In the event this information is protected by the Federal Confidentiality of Alcohol and Drug AbusePatient Records regulations: The Federal rules restrict any use of the information to criminally investigate or prosecute any alcohol or drug abuse patient.[facility] Encounter Details Date Type Department Care Team (Late st Contact Info) Description 08/18/2019 Patient Msg Urology [address] [place] [address] Jannet Galindo, CAPSULE FILLER.[facility] [address] [place], [place] [phone] Appointment Cancellation Request Social History Tobacco Use [...] on filedocumented in this encounter Care Teams Industrial Security Analyst Relationship Specialty Start Date End Date Peter Rush DO PCP - General Internal Medicine 09/11/12 documented as of this encounter
--- OUTSIDE RECORDS SUMMARY | 2025-02-10 10:02 | XMS_ITS | Encounter Summary ---
Author Organization [facility] Address [address] [place] [address] Care Team Providers Care Ratings Analyst Name Role Phone Peter Rush Mela CHAIREZ Primary Care Provider [phone] Source Comments In the event this information is protected by the Federal Confidentiality of Alcohol and Drug AbusePatient Records regulations: The Federal rules restrict any use of the information to criminally investigate or prosecute any alcohol or drug abuse patient.[facility] Encounter Details Date Type Department Care Team (Late st Contact Info) Description 04/07/2021 Get Medical Advice Urology [address] [place], [place] [phone] Jannet Galindo, DATABASE ARCHITECT.CREAM MAKER [address] [place], [place] [id number] Non-Urgent Medical Question Social History Tobacco Use [...] N ot on file 04/30/2020 Data from: https://www.neighborhoodatlas.[facility]/. Last address used for calculation Not on [...] on filedocumented in this encounter Care Teams Ratings Analyst Relationship Specialty Start Date End Date Peter Rush DO PCP - General Internal Medicine 09/11/12 documented as of this encounter
--- OUTSIDE RECORDS SUMMARY | 2025-02-10 10:02 | XMS_ITS | Encounter Summary ---
Author Organization [facility] Address [address] [place] [address] Care Team Providers Care Cloth Tester Name Role Phone Peter Rush DO Primary Care Provider [phone] Source Comments In the event this information is protected by the Federal Confidentiality of Alcohol and Drug AbusePatient Records regulations: The Federal rules restrict any use of the information to criminally investigate or prosecute any alcohol or drug abuse patient.[facility] Encounter Details Date Type Department Care Team (Late st Contact Info) Description 11/10/2013 Patient Msg Medical Records [address] [place] [address] Provider, Cc RE: Patient Registration Completed Social [...] on filedocumented in this encounter Care Teams Cloth Tester Relationship Specialty Start Date End Date Peter Rush DO PCP - General Internal Medicine 09/11/12 documented as of this encounter
--- OUTSIDE RECORDS SUMMARY | 2025-02-10 10:02 | XMS_ITS | Clinical Summary ---
Author Organization [facility] Address [address] [place] [address] Care Team Providers Care Invoice Coder Name Role Phone Peter Rush DO Primary Care Provider [phone] Allergies Active Allergy Reactions Criticality Noted Date [...] is lower risk 4 09/25/2022 Data from: https://www.neighborhoodatlas.medicine.[facility].edu/. Last address used for calculation [address] [...] series) 2032 Medical Devices Implanted Type Area Cane Flume Feeding Machine Operator Device Identifier Shelf Expiration Date Model / Serial / Lot Graft Enhance Demineralized Cortical Fiber Bone Allograft Dehydrate 2.5ml - [id number] Implanted:Qty: 1 on 07/19/2016 at [facility] Implant Right: Bone - Foot MTF 08/01/2018 [id number] / [id number] / Description:graft brought in to room at 0840. Opened sterily to field by Donovan Christensen RN to Abigail Hayes KNITTING MACHINE FIXER at 1015. Also handled by Moe Ulrich MD and Abigail Carey MD. No preparation required. Arx-Id-F-Kind Implant - Crushed Cancellous 15cc Implanted:Qty: 1 on 07/19/2016 at [facility] Implant Right: Bone - Foot MTF 01/10/2019 [id number] / [id number] / Description:YZY-KV-W-KIND IM PLANT - Crushed Cancellous 15cc. Brought into room at 0840. Handed sterily to field by Donovan Christensen RN to Abigail Hayes KNITTING MACHINE FIXER at 1015. Also handled by Moe Ulrich MD, and Abigail Carey MD. No preparation required. Plate 17mm Bone 2 Hole Compression Lower Extremity - [id number] Implanted:Qty: 1 on 07/19/2016 at [facility] Plate Right: Bone - Foot [employer] [id number] / / Plate Uni-Cp Stainless Steel 25mm Bone 2 Hole Compression - [id number] Implanted:Qty: 1 on 07/19/2016 at [facility] Plate Right: Bone - Foot [employer] [id number] / / Plate Lcp Long T Stainless Steel 61mm Bone 2 Hole Variable Angle Fusion - [id number] Implanted:Qty: 1 on 07/19/2016 at [facility] Plate Right: Bone - Foot [employer] 5 / / Screw Lcp 2.7mm T8 Stainless Steel 16mm Bone Variable Angle Lock Self Tap - [id number] Implanted:Qty: 1 on 07/19/2016 at [facility] Screw Right: Bone - Foot [employer] [place] 6 / / Screw Lcp 2.7mm T8 Stainless Steel 18mm Bone Variable Angle Lock Self Tap - [id number] Implanted:Qty: 1 on 07/19/2016 at [facility] Screw Right: Bone - Foot [employer] [place] 8 / / Screw Lcp 2.7mm T8 Stainless Steel 18mm Bone Stardrive Self Tap Modular - [id number] Implanted:Qty: 1 on 07/19/2016 at [facility] Screw Right: Bone - Foot [employer] [place] 202.878 / / Screw Lcp 2.7mm T8 Stainless Steel 16mm Bone Stardrive Self Tap Modular - [id number] Implanted:Qty: 1 on 07/19/2016 at [facility] Screw Right: Bone - Foot [employer] [place] 202.876 / / Screw Uni-Cp 3.5mm Stainless Steel 16mm Bone Lock Replacement Washer - [id number] Implanted:Qty: 2 on 07/19/2016 at [facility] Screw Right: Bone - Foot [employer] [id number] / / Screw Lcp 2.7mm T8 Stainless Steel 22mm Bone Variable Angle Lock Self Tap - [id number] Implanted:Qty: 1 on 07/19/2016 at [facility] Screw Right: Bone - Foot [employer] [place] 02..02 2 / / Screw Uni-Cp 3.5mm Stainless Steel 20mm Bone Lock Replacement Washer - [id number] Implanted:Qty: 1 on 07/19/2016 at [facility] Screw Right: Bone - Foot [employer] [id number] / / Screw Uni-Cp 3.5mm Stainless Steel 28mm Bone Lock Sterile Foot - [id number] Implanted:Qty: 1 on 07/19/2016 at [facility] Screw Right: Bone - Foot [employer] [id number] / / Screw Lcp 4mm 5mm 1.35mm .5 Thread Small Hexagon Reverse Cut Flute - [id number] Implanted:Qty: 1 on 07/19/2016 at [facility] Screw Right: Bone - Foot [employer] [place] 207.718 / / Screw Lcp 2.7mm T8 Stainless Steel 30mm Bone Stardrive Self Tap Modular - [id number] Implanted:Qty: 1 on 07/19/2016 at [facility] Screw Right: Bone - Foot [employer] 202.890 / / Washer Surfix 3.5mm Stainless Steel Orthopedic Lock Midfoot - [id number] Implanted:Qty: 4 on 07/19/2016 at [facility] Washer Right: Bone - Foot [employer] [id number] / / Procedures Procedure Name Priority Date/Time Associated Diagnosis Comments COMPREHENSIVE METABOLIC PANEL Routine 09/26/2022 1:20 PM EDT Polyp of colon, unspecified part of colon, unspecified type Liver hemangioma COLONOSCOPY - DIAGNOSTIC 06/09/2013 9:13 AM EST from Last 3 Months or Most Recently Relevant to Health Maintenance Results * COMP METABOLIC PANEL (09/26/2022 1:20 PM EDT) Pathologist [facility] Protein, Total 7.4 6.3 - 8.0 g/dL 09/26/2022 2:15 PM EDT [facility] Albumin 4.6 3.9 - 4.9 g/dL 09/26/2022 2:15 PM [facility] Calcium, Total 9.7 8.5 - 10.2 mg/dL 09/26/2022 2:15 PM [facility] Bilirubin, Total 0.5 0.2 - 1.3 mg/dL 09/26/2022 2:15 PM [facility] Alkaline Phosphatase 89 34 - 123 U/L 09/26/2022 2:15 PM [facility] AST 21 13 - 35 U/L 09/26/2022 2:15 PM [facility] ALT 28 7 - 38 U/L 09/26/2022 2:15 PM [facility] Glucose 98 74 - 99 mg/dL 09/26/2022 2:15 PM [facility] Comment: The [place] Diabetes Association (ADA) provides guidance for cutoff [...] Standards of Medical Care in Diabetes 2016, [place] Diabetes Association. Diabetes Care. 2016.39(Suppl 1). BUN 17 7 - 21 mg/dL 09/26/2022 2:15 PM [facility] Creatinine 0.68 0.58 - 0.96 mg/dL 09/26/2022 2:15 PM [facility] Sodium 142 136 - 144 mmol/L 09/26/2022 2:15 PM [facility] Potassium 4.6 3.7 - 5.1 mmol/L 09/26/2022 2:15 PM [facility] Chloride 104 97 - 105 mmol/L 09/26/2022 2:15 PM [facility] CO2 29 22 - 30 mmol/L 09/26/2022 2:15 PM [facility] Anion Gap 9 9 - 18 mmol/L 09/26/2022 2:15 PM EDT [facility] Estimated Glomerular Filtration Rate 97 >=60 mL/min/1.7 3m 09/26/2022 2:15 PM EDT [facility] Comment:Estimated Glomerular Filtration Rate (eGFR) is [...] Yolanda Gutierrez MD LABORATORY Final Re sult [facility] [address] [facility] 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
--- OUTSIDE RECORDS SUMMARY | 2025-02-10 10:02 | XMS_ITS | Encounter Summary ---
Author Organization [facility] Address [address] [place] [address] Care Team Providers Care Services Manager Name Role Phone Peter Rush Primary Care Provider [phone] Source Comments In the event this information is protected by the Federal Confidentiality of Alcohol and Drug AbusePatient Records regulations: The Federal rules restrict any use of the information to criminally investigate or prosecute any alcohol or drug abuse patient.[facility] Encounter Details Date Type Department Care Team (Late st Contact Info) Description 02/19/2017 Get Medical Advice Orthopaedics [address] [phone] Rajesh Ulrich MD [address] [place] [address] RE: Non-Urgent Medical Question Social [...] on filedocumented in this encounter Care Teams Services Manager Relationship Specialty Start Date End Date Peter Rush DO PCP - General Internal Medicine 09/11/12 documented as of this encounter
--- OUTSIDE RECORDS SUMMARY | 2025-02-10 10:02 | XMS_ITS | Encounter Summary ---
Author Organization [facility] Address [address] [place] [address] Care Team Providers Care Physician'S Assistant Name Role Phone Victor Manuel Peter Mela CHAIREZ Primary Care Provider [phone] Source Comments In the event this information is protected by the Federal Confidentiality of Alcohol and Drug AbusePatient Records regulations: The Federal rules restrict any use of the information to criminally investigate or prosecute any alcohol or drug abuse patient.[facility] Encounter Details Date Type Department Care Team (Late st Contact Info) Description 05/16/2015 Patient Msg Spine [place] [address] [phone] RE: Appointment Cancellation Request Social History Tobacco [...] on filedocumented in this encounter Care Teams Physician'S Assistant Relationship Specialty Start Date End Date Peter Rush DO PCP - General Internal Medicine 09/11/12 documented as of this encounter
--- OUTSIDE RECORDS SUMMARY | 2025-02-10 10:02 | XMS_ITS | Encounter Summary ---
Author Organization [facility] Address [address] [place] [address] Care Team Providers Care Criminal Justice Faculty Name Role Phone Peter Rush Mela CHAIREZ Primary Care Provider [phone] Source Comments In the event this information is protected by the Federal Confidentiality of Alcohol and Drug AbusePatient Records regulations: The Federal rules restrict any use of the information to criminally investigate or prosecute any alcohol or drug abuse patient.[facility] Encounter Details Date Type Department Care Team (Late st Contact Info) Description 01/04/2014 Abstract Urology [address] [place] [address] Jannet Galindo, TEXTILE MACHINE OPERATOR.[facility] [address] [place] [address] Social History Tobacco Use Types Packs/Day Years [...] kidney documented in this encounter Care Teams Criminal Justice Faculty Relationship Specialty Start Date End Date Peter Rush DO PCP - General Internal Medicine 09/11/12 documented as of this encounter
--- OUTSIDE RECORDS SUMMARY | 2025-02-10 10:02 | XMS_ITS | Encounter Summary ---
Author Organization [facility] Address [address] [place] [address] Care Team Providers Care Disposition Clerk Name Role Phone Peter Rush Primary Care Provider [phone] Source Comments In the event this information is protected by the Federal Confidentiality of Alcohol and Drug AbusePatient Records regulations: The Federal rules restrict any use of the information to criminally investigate or prosecute any alcohol or drug abuse patient.[facility] Encounter Details Date Type Department Care Team (Late st Contact Info) Description 01/22/2016 Get Medical Advice Urology [address] [place] [address] Jannet Galindo, SHEET FINISHER.[facility] [address] [place], [place] [phone] RE: Non-Urgent Medical Question Social History Tobacco [...] on filedocumented in this encounter Care Teams Disposition Clerk Relationship Specialty Start Date End Date Peter Rush DO PCP - General Internal Medicine 09/11/12 documented as of this encounter
--- OUTSIDE RECORDS SUMMARY | 2025-02-10 10:02 | XMS_ITS | Encounter Summary ---
Author Organization [facility] Address [address] [place] [address] Care Team Providers Care Platform Engineer Name Role Phone Peter Rush DO Primary Care Provider [phone] Source Comments In the event this information is protected by the Federal Confidentiality of Alcohol and Drug AbusePatient Records regulations: The Federal rules restrict any use of the information to criminally investigate or prosecute any alcohol or drug abuse patient.[facility] Encounter Details Date Type Department Care Team (Late st Contact Info) Description 04/08/2013 Patient Msg Medical Records [address] [place] [address] Provider, [facility] Medical Procedure Social [...] on filedocumented in this encounter Care Teams Platform Engineer Relationship Specialty Start Date End Date Peter Rush DO PCP - General Internal Medicine 09/11/12 documented as of this encounter
--- OUTSIDE RECORDS SUMMARY | 2025-02-10 10:02 | XMS_ITS | Encounter Summary ---
Author Organization [facility] Address [address] [place] [address] Care Team Providers Care Media Relations Director Name Role Phone Peter Rush DO Primary Care Provider [phone] Source Comments In the event this information is protected by the Federal Confidentiality of Alcohol and Drug AbusePatient Records regulations: The Federal rules restrict any use of the information to criminally investigate or prosecute any alcohol or drug abuse patient.[facility] Encounter Details Date Type Department Care Team (Late st Contact Info) Description 03/11/2014 Patient Msg Medical Records [address] [place] [address] Provider, Ccf RE: Appointment Cancellation Request Social [...] on filedocumented in this encounter Care Teams Media Relations Director Relationship Specialty Start Date End Date Peter Rush DO PCP - General Internal Medicine 09/11/12 documented as of this encounter
--- NOTE | 2025-02-10 10:06 | ECG_ITS ---
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 Measurements Intervals [place] Rate: 68 P: 34 AR: 141 QRS: 19 QRSD: 94 T: 20 QT: 389 QTc: 416 Interpretive Statements SINUS RHYTHM Normal ECG No previous ECG available for comparison Electronically Signed On 02-10-2025 18:15:05 EDT by JOHN QUEEN M.D.
--- OUTSIDE RECORDS SUMMARY | 2025-02-10 10:07 | XMS_ITS | CCD ---
Author Organization [facility] Care Team Providers Care Night Time Nanny Name Role Phone VICTOR MANUEL, DR COBIAN [...] Unavailable VICTOR MANUEL, PETER Primary Care Physician Cristian CINTRON Attending Unavailable [...] Morphine; Translations: [MORPHINE] Drug Allergy 3 [facility] (7 sources) Morphine; Translations: [morphine] Drug Allergy 3 Other: See Comments, Patient reported problems (finding) [facility] (3 sources) Latex; Translations: [LATEX] Drug Allergy 3 Rash [facility] (1 source) patient allergy list reviewed by nurse or physicia Propensity to adverse reactions Comment:Done [employer] Other Medications Current Medications Medication Drug Class(es) [...] tw o times a week. estrogens, conjugated (fpc) 0.625 mg/ml vaginal cream (3 sources) Estrogen [...] Date: 03/18/24 Status: Ordered polyethylene glycol 3350 765866 mg / potassium chloride 2970 mg / sodium bicarbonate 6740 mg / sodium chloride 5860 mg / sodium sulfate 07815 mg powder for oral solution (1 source) [...] choosing us for your care. Normal [facility] General Surgery Office/Clini c Noteon [...] (COVID-19) Ad26 vaccine 08/04/2020 Recorded Normal [facility] Comment on above: Result Comment: Elec tronically Signed By: ABDULAZIZ WILSON, Cristian Doshi\Date and Time Signed: 03/24/24 16:23 EDT Reminderson 03-04-2024 Reminders Reminders From: Patti Douglas LPN To: N - Clinical; Sent: 03/04/2024 14:13:04 EDT Show up: 02/01/2034 07:00:00 EDT Subject: colonoscopy recall Due Date/Time: 03/03/2034 07:00:00 EDT Reminder/Recall Patient due for screening colonoscopy 03/03/2034. Normal [facility] CBC W Auto Differential pane l (Bld)on 09-26-2022 Basophils (Bld) [#/Vol] 0.04 10*3/uL Normal <0.11 [facility] Comment on above: Order Comment: Speci men Type: BLOOD SPECIMEN Ordering Facility: [facility] Address: [address] [address] Performed By: #### 5 7021-8 #### [facility] CLIA [id number] [address] [place] [address] [place] Basophils/100 WBC (Bld) 0.7 % Normal [facility] Comment on above: Order Comment: Speci men Type: BLOOD SPECIMEN Ordering Facility: [facility] Address: [address] [place] [address] Performed By: #### 5 7021-8 #### [facility] CLIA [id number] [address] [place] [address] [place] Differential cell count method Nom (Bld) Auto Normal [facility] Comment on above: Order Comment: Speci men Type: BLOOD SPECIMEN Ordering Facility: [facility] Address: [address] [address] Performed By: #### 5 7021-8 #### [facility] CLIA [id number] [address] [place] [address] [place] Eosinophils (Bld) [#/Vol] 0.04 10*3/uL Normal <0.46 [facility] Comment on above: Order Comment: Speci men Type: BLOOD SPECIMEN Ordering Facility: [facility] Address: [address] [address] Performed By: #### 5 7021-8 #### [facility] CLIA [id number] [address] [place] [address] [place] Eosinophils/100 WBC (Bld) 0.7 % Normal [facility] Comment on above: Order Comment: Speci men Type: BLOOD SPECIMEN Ordering Facility: [facility] Address: [address] [address] Performed By: #### 5 7021-8 #### [facility] IA [id number] [address] [place] [address] [place] Erythrocyte distribution width (RBC) [Ratio] 12.2 % Normal 11.5-15.0 [facility] Comment on above: Order Comment: Speci men Type: BLOOD SPECIMEN Ordering Facility: [facility] Address: [address] [place] [address] Performed By: #### 5 7021-8 #### [facility] IA [id number] [address] [place] [address] [place] Hematocrit (Bld) [Volume fraction] 43.6 % Normal 36.0-46.0 [facility] Comment on above: Order Comment: Speci men Type: BLOOD SPECIMEN Ordering Facility: [facility] Address: [address] [place] [address] Performed By: #### 5 7021-8 #### [facility] IA [id number] [address] [place] [address] [place] Hemoglobin (Bld) [Mass/Vol] 14.4 g/dL Normal 11.5-15.5 [facility] Comment on above: Order Comment: Speci men Type: BLOOD SPECIMEN Ordering Facility: [facility] Address: [address] [place] [address] Performed By: #### 5 7021-8 #### [facility] IA [id number] [place] [address] [place] Immature granulocytes (Bld) [#/Vol] 10*3/uL Normal <0.10 [facility] Comment on above: Order Comment: Speci men Type: BLOOD SPECIMEN Ordering Facility: [facility] Address: [address] [place], [place] [address] Performed By: #### 5 7021-8 #### [facility] IA [id number] [address] [place] Immature granulocytes/100 WBC (Bld) 0.3 % Normal [facility] Comment on above: Order Comment: Speci men Type: BLOOD SPECIMEN Ordering Facility: [facility] Address: [address] [address] Performed By: #### 5 7021-8 #### [facility] IA [id number] [place] Lymphocytes (Bld) [#/Vol] 1.48 10*3/uL Normal 1.00-4.00 [facility] Comment on above: Order Comment: Speci men Type: BLOOD SPECIMEN Ordering Facility: [facility] Address: [address] [address] Performed By: #### 5 7021-8 #### [facility] IA [id number] [address] [place] [address] [place] Lymphocytes/100 WBC (Bld) 25.8 % Normal [facility] Comment on above: Order Comment: Speci men Type: BLOOD SPECIMEN Ordering Facility: [facility] Address: [address] [address] Performed By: #### 5 7021-8 #### [facility] IA [id number] [address] [place] MCH (RBC) [Entitic mass] 30.5 pg Normal 26.0-34.0 [facility] Comment on above: Order Comment: Speci men Type: BLOOD SPECIMEN Ordering Facility: [facility] Address: [address] [address] Performed By: #### 5 7021-8 #### [facility] IA [id number] [address] [place] MCHC (RBC) [Mass/Vol] 33.0 g/dL Normal 30.5-36.0 [facility] Comment on above: Order Comment: Speci men Type: BLOOD SPECIMEN Ordering Facility: [facility] Address: [address] Performed By: #### 5 7021-8 #### [facility] IA [id number] [address] [place] [address] [place] MCV (RBC) [Entitic vol] 92.4 fL Normal 80.0-100.0 [facility] Comment on above: Order Comment: Speci men Type: BLOOD SPECIMEN Ordering Facility: [facility] Address: [address] [address] Performed By: #### 5 7021-8 #### [facility] CLIA [id number] [address] [place] [address] [place] Monocytes (Bld) [#/Vol] 0.55 10*3/uL Normal <0.87 [facility] Comment on above: Order Comment: Speci men Type: BLOOD SPECIMEN Ordering Facility: [facility] Address: [address] [address] Performed By: #### 5 7021-8 #### [facility] CLIA [id number] [address] [place] Monocytes/100 WBC (Bld) 9.6 % Normal [facility] Comment on above: Order Comment: Speci men Type: BLOOD SPECIMEN Ordering Facility: [facility] Address: [address] [address] Performed By: #### 5 7021-8 #### [facility] CLIA [id number] [address] [place] [address] [place] Neutrophils (Bld) [#/Vol] 3.61 10*3/uL Normal 1.45-7.50 [facility] Comment on above: Order Comment: Speci men Type: BLOOD SPECIMEN Ordering Facility: [facility] Address: [address] [address] Performed By: #### 5 7021-8 #### [facility] CLIA [id number] [address] [place] Neutrophils/100 WBC (Bld) 62.9 % Normal [facility] Comment on above: Order Comment: Speci men Type: BLOOD SPECIMEN Ordering Facility: [facility] Address: [address] [address] Performed By: #### 5 7021-8 #### [facility] CLIA [id number] [address] [place] [address] [place] Nucleated RBC (Bld) [#/Vol] 10*3/uL Normal <0.01 [facility] Comment on above: Order Comment: Speci men Type: BLOOD SPECIMEN Ordering Facility: [facility] Address: [address] [address] Performed By: #### 5 7021-8 #### [facility] IA [id number] [address] [place] [address] [place] Nucleated RBC/100 WBC (Bld) [Ratio] 0.0 /100 WBC Normal [facility] Comment on above: Order Comment: Speci men Type: BLOOD SPECIMEN Ordering Facility: [facility] Address: [address] [place] [address] Performed By: #### 5 7021-8 #### [facility] IA [id number] [address] [place] [address] [place] Platelet mean volume (Bld) [Entitic vol] 9.2 fL Normal 9.0-12.7 [facility] Comment on above: Order Comment: Speci men Type: BLOOD SPECIMEN Ordering Facility: [facility] Address: [address] [address] Performed By: #### 5 7021-8 #### [facility] IA [id number] [address] [place] [address] [place] Platelets (Bld) [#/Vol] 267 10*3/uL Normal 150-400 [facility] Comment on above: Order Comment: Speci men Type: BLOOD SPECIMEN Ordering Facility: [facility] Address: [address] [address] Performed By: #### 5 7021-8 #### [facility] IA [id number] [address] [place] [address] [place] RBC (Bld) [#/Vol] 4.72 10*6/uL Normal 3.90-5.20 [facility] Comment on above: Order Comment: Speci men Type: BLOOD SPECIMEN Ordering Facility: [facility] Address: [address] Performed By: #### 5 7021-8 #### [facility] CLIA [id number] WBC (Bld) [#/Vol] 5.74 10*3/uL Normal 3.70-11.00 [facility] Comment on above: Order Comment: Speci men Type: BLOOD SPECIMEN Ordering Facility: [facility] Address: [address] Performed By: #### 5 7021-8 #### [facility] CLIA [id number] Comprehensive metabolic 2000 panelon 09-26-2022 Albumin [Mass/Vol] 4.6 g/dL Normal 3.9-4.9 [facility] Comment on above: Order Comment: Speci men Type: BLOOD SPECIMEN Ordering Facility: [facility] Address: [address] [address] Performed By: #### 2 4323-8 #### [facility] CLIA [id number] [place] ALP [Catalytic activity/Vol] 89 U/L Normal 34-123 [facility] Comment on above: Order Comment: Speci men Type: BLOOD SPECIMEN Ordering Facility: [facility] Address: [address] Performed By: #### 2 4323-8 #### [facility] CLIA [id number] [address] [place], [place] [address] [place] [address] OF [facility] ALT [Catalytic activity/Vol] 28 U/L Normal 7-38 [facility] Comment on above: Order Comment: Speci men Type: BLOOD SPECIMEN Ordering Facility: [facility] Address: [address] Performed By: #### 2 4323-8 #### [facility] CLIA [id number] [address] [place] [address] [place] Anion gap [Moles/Vol] 9 mmol/L Normal 9-18 [facility] Comment on above: Order Comment: Speci men Type: BLOOD SPECIMEN Ordering Facility: [facility] Address: [address] [address] Performed By: #### 2 4323-8 #### [facility] CLIA [id number] [address] [place] [address] [place] AST [Catalytic activity/Vol] 21 U/L Normal 13-35 [facility] Comment on above: Order Comment: Speci men Type: BLOOD SPECIMEN Ordering Facility: [facility] Address: [address] [address] Performed By: #### 2 4323-8 #### [facility] IA [id number] [address] [place] [address] [place] Bilirubin [Mass/Vol] 0.5 mg/dL Normal 0.2-1.3 [facility] Comment on above: Order Comment: Speci men Type: BLOOD SPECIMEN Ordering Facility: [facility] Address: [address] Performed By: #### 2 4323-8 #### [facility] IA [id number] [address] [place] [address] [place] Calcium [Mass/Vol] 9.7 mg/dL Normal 8.5-10.2 [facility] Comment on above: Order Comment: Speci men Type: BLOOD SPECIMEN Ordering Facility: [facility] Address: [address] Performed By: #### 2 4323-8 #### [facility] CLIA [id number] [address] [place] [address] [place] Chloride [Moles/Vol] 104 mmol/L Normal 97-105 [facility] Comment on above: Order Comment: Speci men Type: BLOOD SPECIMEN Ordering Facility: [facility] Address: [address] Performed By: #### 2 4323-8 #### [facility] CLIA [id number] [address] [place] [address] [place] CO2 [Moles/Vol] 29 mmol/L Normal 22-30 [facility] Comment on above: Order Comment: Speci men Type: BLOOD SPECIMEN Ordering Facility: [facility] Address: [address] [address] Performed By: #### 2 4323-8 #### [facility] CLIA [id number] [address] [place] [address] [place] Creatinine [Mass/Vol] 0.68 mg/dL Normal 0.58-0.96 [facility] Comment on above: Order Comment: Speci men Type: BLOOD SPECIMEN Ordering Facility: [facility] Address: [address] [place] [address] Performed By: #### 2 4323-8 #### [facility] CLIA [id number] [place] ESTIMATED GLOMERULAR FILTRATION RATE 97 mL/min/1.73m??? Normal >=60 [facility] Comment on above: Order Comment: Speci men Type: BLOOD SPECIMEN Ordering Facility: [facility] Address: [address] [place] [address] Result Comment: Barbara mated Glomerular Filtration Rate [...] GFR. Performed By: #### 2 4323-8 #### [facility] CLIA [id number] [address] [place] [address] [place] Glucose [Mass/Vol] 98 mg/dL Normal 74-99 [facility] Comment on above: Order Comment: Aliai men Type: BLOOD SPECIMEN Ordering Facility: [facility] Address: [address] [place] [address] Result Comment: The [place] [employer] Association (ADA) provides guidance for cutoff [...] Standards of Medical Care in Diabetes 2016, [place] [employer]. Diabetes Care. 2016.39(Suppl 1). Performed By: #### 2 4323-8 #### [facility] CLIA [id number] [address] [place] [address] [place] Potassium [Moles/Vol] 4.6 mmol/L Normal 3.7-5.1 [facility] Comment on above: Order Comment: Speci men Type: BLOOD SPECIMEN Ordering Facility: [facility] Address: [address] [place] [address] Performed By: #### 2 4323-8 #### [facility] IA [id number] [address] [place] [address] [place] Protein [Mass/Vol] 7.4 g/dL Normal 6.3-8.0 [facility] Comment on above: Order Comment: Speci men Type: BLOOD SPECIMEN Ordering Facility: [facility] Address: [address] [address] Performed By: #### 2 4323-8 #### [facility] CLIA [id number] [address] [address] [place] Sodium [Moles/Vol] 142 mmol/L Normal 136-144 [facility] Comment on above: Order Comment: Speci men Type: BLOOD SPECIMEN Ordering Facility: [facility] Address: [address] [address] Performed By: #### 2 4323-8 #### [facility] CLIA [id number] [address] [place] [address] [place] Urea nitrogen [Mass/Vol] 17 mg/dL Normal 7-21 [facility] Comment on above: Order Comment: Speci men Type: BLOOD SPECIMEN Ordering Facility: [facility] Address: [address] [place] [address] Performed By: #### 2 4323-8 #### [facility] CLIA [id number] [address] [place] [address] [place] No Panel Informationon 09-26 [facility] US ABD RIGHT UPPER QUADRANTo n [...] and could represent the previously described hemangiomas. Ballet Soloist: PSCXi Transcribe Date/Time: Oct 03 2022 6:03A Dictated by : NAS DENSON MD This examination was interpreted and the report reviewed and electronically signed by: NAS DENSON MD on Oct 03 2022 6:08AM EST [id number] Normal [facility] US ABD SPLEEN -NBon 09-27-19 [place] [...] and could represent the previously described hemangiomas. Ballet Soloist: DARRELL Transcribe Date/Time: Oct 03 2022 6:03A Dictated by : NAS DENSON MD This examination was interpreted and the report reviewed and electronically signed by: NAS DENSON MD on Oct 03 2022 6:08AM EST [id number] [facility] 09-25-2022 [facility] Office Visit (GASTAV ) BETTINA REED ([id number]) 1955 F Date Time Provider Department 09/25/22 1:30 PM YOLANDA STAFFORD During your visit today, we recorded the following information about you: Weight Height 100.7 kg 1.676 m Yolanda Ta MD 09/25/2022 2:21 PM Signed Hepatology [facility] consult by Dr Rush for liver [...] If you do not have a responsible ross carrier driver (family member or friend) with you [...] Imodium, Ka (more content not included)... Normal [facility] HISTORY PHYSICALon 3 HISTORY PHYSICAL HNO ID: [id number] Author: Yolanda Gutierrez MD Service: ? Author Type: Physician Type: HANDP Filed: 09/25/2022 2:21 PM Note Text: Hepatology [facility] HPI consult by Dr Rush for [...] Walters MD cc dr Victor Manuel Ramires [facility] CULTURE URINEon 01-11-2022 CULTURE URINE Culture Observations : MODERATE GROWTH OF MIXED GENITAL JESUS. NO POTENTIAL PATHOGENS SEEN. Normal [facility] Comment on above: Performed By: #### U RCX #### [facility] [address] [place] [address] Dr. Na Gonzales UA RANDOM W/MICROSCOPICon BACTERIA NONE SEEN Normal NONE SEEN [facility] Comment on above: Performed By: #### U AMIC #### [facility] [address] [place] [address] Dr. Na Gonzales Bilirubin Ql (U) Negative Normal NEGATIVE [facility] Comment on above: Performed By: #### U AMIC #### [facility] [address] [place] [address] Dr. Na Gonzales CAST NONE SEEN Normal NONE SEEN [facility] Comment on above: Performed By: #### U AMIC #### [facility] [address] [address] [address] Na Gonzales Clarity (U) CLEAR Normal CLEAR [facility] Comment on above: Performed By: #### U AMIC #### [facility] [address] [address] [address] Na Gonzales Color (U) LT. YELLOW Normal YELLOW [facility] Comment on above: Performed By: #### U AMIC #### [facility] [address] [place] [address] Dr. Na Gonzales Crystals LM Nom (Urine sed) NONE SEEN Normal NONE SEEN [facility] Comment on above: Performed By: #### U AMIC #### [facility] [address] [address] [address] Na Gonzales Epithelial cells LM Ql (Urine sed) NONE SEEN Normal NONE SEEN /RARE [facility] Comment on above: Performed By: #### U AMIC #### [facility] [address] [address] [address] Na Gonzales Glucose Ql (U) Negative Normal NEGATIVE [facility] Comment on above: Performed By: #### U AMIC #### [facility] [address] [address] [address] Na Gonzales Hemoglobin Ql (U) Negative Normal NEGATIVE [facility] Comment on above: Performed By: #### U AMIC #### [facility] [address] [place] [address] Dr. Na Gonzales Ketones Ql (U) Negative Normal NEGATIVE [facility] Comment on above: Performed By: #### U AMIC #### [facility] [address] [address] [address] Na Goznales LEUKOCYTES SMALL Abnormal NEGATIVE [facility] Comment on above: Performed By: #### U AMIC #### [facility] [address] [address] [address] Na Gonzales MUCOUS NONE SEEN Normal NONE SEEN [facility] Comment on above: Performed By: #### U AMIC #### [facility] [address] [address] [address] Na Gonzales Nitrite Ql (U) Negative Normal NEGATIVE [facility] Comment on above: Performed By: #### U AMIC #### [facility] [address] [address] [address] Na Gonzales pH (U) 6.0 [pH] Normal 5-9 [facility] Comment on above: Performed By: #### U AMIC #### [facility] [address] [place] [address] Dr. Na Gonzales RBC NONE SEEN Abnormal 0-2 [facility] Comment on above: Performed By: #### U AMIC #### [facility] [address] [address] [address] Na Gonzales SPEC GRAVITY 1.005 Normal 1.005-<=1.02 5 [facility] Comment on above: Performed By: #### U AMIC #### [facility] [address] [address] [address] Na Gonzales UA PROTEIN Negative Normal NEGATIVE/ TRACE [facility] Comment on above: Performed By: #### U AMIC #### [facility] [address] [address] [address] Na Gonzales Urobilinogen Qn (U) 0.2 {Irene'U}/dL Normal 0.2 - 1.0 [facility] Comment on above: Performed By: #### U AMIC #### [facility] [address] [address] [address] Na Gonzales WBC 0-2 Abnormal NONE SEEN [facility] Comment on above: Performed By: #### U AMIC #### [facility] [address] [place] [address] ABD/PELVIS WO CONon [...] DEMETRIS PATEL Date: 2021-04-06 18:26 Normal [facility] CULTURE STOOLon 02-22-2021 CULTURE STOOL Culture Observations : SALMONELLA CALD TO EDNA FELIX LPN@1225/02/21/21/RK Culture Observations: [facility]1230/02/21/21/RK Culture Observations: SENDING ISOLATE TO [facility] FOR SEROTYPING Isolate 1 Salmonella enterica ssp enterica Heavy growth of ORGANISM 1 Salmonella enterica ssp enterica ANTIBIOTIC M.I.C RX STATUS Ampicillin <=2 S F Ceftazidime <=1 S F Ceftriaxone <=1 S F Ciprofloxacin <=0.25 S F Levofloxacin <=0.12 S F Trimethoprim/Sulfamethoxazole <=20 S F Normal [facility] Comment on above: Performed By: #### S TOOLCX #### [facility] [address] [place] [address] Dr. Na Gonzales CLOSTRIDIUM DIFFICILE PCRon 02-21-2021 C difficile Toxin Gene SHADI Negative Normal Negative [facility] Comment on above: Performed By: #### C DIFNAA #### [facility] [address] [address] [address] Na Gonzales Vital Signs Date Time Vital Sign Value Performing Clinician Facility 01-26-2025 09:32-0400 Body height 167.64 cm Ginger.io DO Work Phone: [facility] 01-26-2025 09:32-0400 Body mass index (BMI) [Ratio] 36.3 kg/m2 Ginger.io DO Work Phone: [facility] 01-26-2025 09:32-0400 Body weight 102.1 kg Ginger.io DO Work Phone: [facility] 01-26-2025 09:32-0400 Diastolic blood pressure 88 mm[Hg] Peter Ball DO Work Phone: [facility] 01-26-2025 09:32-0400 Systolic blood pressure 138 mm[Hg] Peter Ball DO Work Phone: [facility] 12-14-2024 11:13-0400 Body height 167.64 cm Peter Ball DO Work Phone: [facility] 12-14-2024 11:13-0400 Body mass index (BMI) [Ratio] 35.8 kg/m2 Peter Ball DO Work Phone: [facility] 12-14-2024 11:13-0400 Body weight 100.75 kg Peter Ball DO Work Phone: [facility] 12-14-2024 11:13-0400 Diastolic blood pressure 82 mm[Hg] Peter Ball DO Work Phone: [facility] 12-14-2024 11:13-0400 Systolic blood pressure 130 mm[Hg] Peter Ball DO Work Phone: [facility] 01-27-2024 15:15-0400 Blood Pressure Location Cristian NILL [facility] 01-27-2024 15:15-0400 Diastolic blood pressure 82 mm[Hg] Cristian NILL [facility] [place] 01-27-2024 15:15-0400 Heart rate 76 /min Cristian NILL [facility] [place] 01-27-2024 15:15-0400 Respiratory rate 16 /min Cristian NILL [facility] 01-27-2024 15:15-0400 Systolic blood pressure 120 mm[Hg] Cristian NILL [facility] 12-23-2023 14:36-0400 Body height 167.64 cm [facility] 12-23-2023 14:36-0400 Body mass index (BMI) [Ratio] 35.2 kg/m2 [facility] 12-23-2023 14:36-0400 Body weight 98.93 kg [facility] 12-23-2023 14:36-0400 Diastolic blood pressure 86 mm[Hg] [facility] 12-23-2023 14:36-0400 Heart rate 98 /min [facility] 12-23-2023 14:36-0400 Respiratory rate 12 /min [facility] 12-23-2023 14:36-0400 Systolic blood pressure 141 mm[Hg] [facility] 09-25-2022 13:20-0400 Body height 167.6 cm Yolanda Gutierrez MD Work Phone: [facility] 09-25-2022 13:20-0400 Body weight 100.7 kg Yolanda Gutierrez MD Work Phone: [facility] 08-26-2022 14:30-0400 Body height 166.37 cm Peter Ball Other [facility] [employer] Other 08-26-2022 14:30-0400 Body mass index (BMI) [Ratio] 36.44 kg/m2 Peter Ball Other [facility] Other 08-26-2022 14:30-0400 Body weight 100.88 kg Peter Ball Other [facility] Other 08-26-2022 14:30-0400 Diastolic blood pressure 78 mm[Hg] Peter Ball Other [employer] Other 08-26-2022 14:30-0400 Respiratory rate 12 /min Peter Ball Other [facility] [employer] Other 08-26-2022 14:30-0400 Systolic blood pressure 122 mm[Hg] Peter Ball Other [employer] Other Encounters Encounter Date Encounter Type Care Provider Facility Start: 01-26-2025 End: 01-26-2025 ambulatory Peter Ball DO Work Phone: [facility] Work Phone: Start: 01-26-2025 End: 01-26-2025 Patient encounter procedure Randy Rizo MD -[facility] Work Phone: Start: 12-14-2024 End: 12-14-2024 ambulatory Peter Ball DO Work Phone: [facility] Work Phone: Start: 12-14-2024 End: 12-14-2024 Patient encounter procedure Randy Rizo MD -[facility] [place] Work Phone: Start: 11-15-2024 End: 11-15-2024 ambulatory Felisa Ruiz MD Facility: [facility] Start: 11-01-2024 End: 11-01-2024 ambulatory Felisa Ruiz MD Facility: [facility] Start: 10-11-2024 End: 10-11-2024 ambulatory Felisa Ruiz MD Facility: [facility] Start: 07-12-2024 End: 07-12-2024 ambulatory Felisa Ruiz MD Facility: [facility] Start: 03-24-2024 End: 03-24-2024 ambulatory Cristian CINTRON Facility: [facility] Start: 03-24-2024 End: 03-24-2024 Patient encounter procedure Cristian CINTRON [facility] [place] Start: 03-03-2024 End: 03-03-2024 ambulatory Cristian CINTRON Facility:CD:[id number] Start: 01-27-2024 End: 01-27-2024 ambulatory PETER RUSH Facility: [place] Start: 01-27-2024 End: 01-27-2024 Patient encounter procedure Cristian CINTRON [facility] [place] Start: 12-26-2023 ambulatory Cristian JARAMILLOAnika Facility:[facility] Start: 12-23-2023 End: 12-23-2023 ambulatory [facility] Work Phone: Start: 12-23-2023 End: 12-23-2023 Patient encounter procedure [facility] Physician [facility] Work Phone: Start: 07-02-2023 End: 07-02-2023 ambulatory Peter Rush Other [employer] Other Start: 07-02-2023 Telephone encounter Peter ARELLANO [facility] Start: 09-26-2022 End: 09-27-2022 ambulatory YOLANDA GUTIERREZ Facility:[facility] Start: 09-26-2022 End: 09-26-2022 Subsequent hospital visit by physician Brittany [facility] 2 Work Phone: [facility] Radiology Ultrasound Comment on above: Polyp of colon, unsp ecified part of colon, unspecified type [K63.5] Start: 09-25-2022 End: 09-25-2022 ambulatory YOLANDA GUTIERREZ Facility:[facility] Start: 09-25-2022 End: 09-25-2022 Patient encounter procedure Yolanda Gutierrez MD Work Phone: Gastroenterology Comment on above: Polyp of colon, unsp ecified part of colon, unspecified type (Primary Dx); Liver hemangioma Start: 08-31-2022 End: 08-31-2022 ambulatory Peter Rush Other [employer] Other Start: 08-31-2022 Telephone encounter Peter ARELLANO [facility] Start: 08-26-2022 End: 08-26-2022 ambulatory Peter Rush Other [employer] Other Start: 08-26-2022 Patient encounter procedure Peter Rush [facility] Start: 01-11-2022 End: 01-12-[address] PETER RUSH Facility:[facility] Start: 04-06-2021 End: 04-07-[address] PETER RUSH Facility:[facility] Start: 02-20-2021 End: 02-20-[address] PETER RUSH Facility:[facility] Start: 04-04-2020 Adult health examination Peter Rush Other [employer] Other Procedures Date Procedure Procedure Detail Performing [...] Start: 09-26-2025 Diabetes Screening Diabetes Screenin g [facility] Start: 06-09-2023 Colonoscopy COLONOSCOPY [facility] Start: 06-09-2023 COLORECTAL CANCER SCREENING COLORECTAL CANCER SCREENING [facility] Start: 01-24-2023 Covid-19 Vaccine ( season) Covid-19 Vaccine ( season) [facility] Start: 01-24-2023 Influenza vaccination Influenza Vacc ine (#1) [facility] Start: 09-25-2022 End: 11-25-2022 CBC W [...] 2022 ADVANCE DIRECTIVE DISCUSSION ADVANCE DIRECTIVE DISCUSSION [facility] Start: 2022 BONE DENSITY BONE DENSITY [facility] Start: 2022 Bone Density Screening Bone Density Screening [facility] Start: 2022 Pneumococcal Vaccine : 65+ (1 - PCV) Pneumococcal Vaccine: 65+ (1 - PCV) [facility] Start: 2022 PNEUMOCOCCAL: 65+ (1 - PCV) PNEUMOCOCCAL: 65+ (1 - PCV) [facility] Start: 05-26-2022 DEPRESSION ASSESSMENT DEPRESSION ASS ESSMENT [facility] Start: 09-29-2020 COVID-19 VACCINE (2 - Booster for Roe series) COVID-19 VACCINE (2 - Booster for Roe series) [facility] Start: 04-26-2018 DIABETES SCREEN DIABETES SCREEN [facility] Start: 2017 RSV Vaccine (1 - 1-d ose 60+ series) RSV Vaccine (1 - 1-dose 60+ series) [facility] Start: 2007 SHINGRIX VACCINE (1 of 2) SHINGRIX VACCINE (1 of 2) [facility] Start: 2002 COLOGUARD (FIT-DNA) COLOGUARD (FIT-D NA) [facility] Start: [address] COLONOGRAPHY [facility] Start: 2002 FECAL OCCULT BLOOD FECAL OCCULT BLOO D [facility] Start: 2002 Lipid 1996 panel - S fernando or Plasma Lipid Screening [facility] Start: 2002 LIPID SCREEN LIPID SCREEN [facility] Start: 2002 SIGMOIDOSCOPY SIGMOIDOSCOPY [facility] Start: 1997 Mammography [facility] Start: 1976 Urine microalbumin profile [facility] Start: 1975 HEPATITIS C SCREENING HEPATITIS C SC REENING [facility] Start: 1975 HIV SCREENING HIV SCREENING [facility] End: 09-26-2023 COLONOSCOPY DIAGNOSTIC COLONOSCOPY DIAGNOSTIC Endoscopy [...] 10/25/2023 XR Knee - bilateral 4 Views [facility] XR Knee - right 4 Views [facility] XR Pelvis 1 or 2 Views [facility] Immunizations Immunization Date Immunization Notes Care Provider Fa cili 04-09-2022 influenza, high dose seasonal, preservative-free Peter Rush Other [employer] Other 04-09-2022 influenza virus vaccine, split virus (incl. purified surface antigen) Peter Rush Other [employer] Other 04-09-2022 influenza virus vaccine, unspecified formulation Ultra 2 Work Phone: [facility] 03-24-2021 influenza virus vaccine, split virus (incl. purified surface antigen) Peter Rush Other [employer] Other 03-24-2021 influenza virus vaccine, unspecified formulation [facility] 08-04-2020 COVID-19 Vaccine Roe - Documentation Purposes Only Peter Rush Other [facility] 02-23-2017 tetanus and diphther ia toxoids, adsorbed, preservative free, for adult use (5 Lf of tetanus toxoid and 2 Lf of diphtheria toxoid) Peter Rush Other [facility] 03-15-2016 tetanus and diphther ia toxoids, adsorbed, preservative free, for adult use (5 Lf of tetanus toxoid and 2 Lf of diphtheria toxoid) Peter Rush Other [facility] Payers Date Payer Category Payer Unknown [id number] 2022 Unknown [id number] 2022 Medicare [id number] 2022 Medicare [id number] 1959 Unknown [id number] 1957 Unknown [id number] 1957 Unknown [id number] 1957 Unknown [id number] 1957 Unknown [id number] 1957 Unknown [id number] 1957 Unknown [id number] 1957 Unknown [id number] 1957 Unknown [id number] 1957 Unknown [id number] 1957 Unknown [id number] Private Health Insurance [employer] [id number] Social History Date Type Detail Facility Start: 09-02-2018 End: 09-25-2022 Sex Assigned At [facility] Start: 08-24-2013 End: 03-23-2024 Tobacco smoking status WYIS Never smoked tobacco [facility] Start: 08-24-2013 Tobacco use and exposure Smokeless tobacco non-user [facility] Start: 09-02-2018 Alcohol intake Current drinke r of alcohol (finding) [facility] Start: 08-24-2013 Alcohol Comment occ. [facility] Start: 1955 Sex Assigned At Female [facility] Start: 09-02-2018 End: 09-25-2022 History of Social function [facility] National Score (1-100), lower number is lower risk 67 [facility] [place] Start: 04-11-2021 Gender identity Identifies as female gender (finding) [facility] Start: 11-24-2023 Tobacco smoking stat us WYIS Ex-smoker (finding) [facility] Sex Female (finding) [facility] Medical Equipment Procedure Code Equipment Code Equipment Origin al Text Equipment Identifier Dates Cwe-Jc-H-Kind Implant - Crushed Cancellous 15cc [id number] Start: 07-19-2016 Comment on above: Description: ONE-OF- A-KIND IMPLANT - Crushed Cancellous 15cc. Brought into room at 0840. Handed sterily to field by Donovan Christensen RN to Abigail Hayes RUBBER CUTTER [employer] SHAPE CARVER at 1015. Also handled by Moe Ulrich MD, and Abigail Carey MD. No preparation required. Plate Lcp Long T Stainless Steel 61mm Bone 2 Hole Variable Angle Fusion - [id number] Start: 07-19-2016 Screw Lcp 2.7mm T8 Stainless Steel 22mm Bone Variable Angle Lock Self Tap - [id number] Start: 07-19-2016 Washer Surfix 3.5mm Stainless Steel Orthopedic Lock Midfoot - [id number] Start: 07-19-2016 Functional Status Date Assessment Result Facility 03-24-2024 Functional Status N/A [facility] [place] 01-27-2024 Functional Status N/A [facility] [place] Clinical Notes 08-26-2022 to 12-14-2024 Note Date & Type Note Facility 12-14-2024 Evaluation note Diagnosis Onset Date Resolution Primary osteoarthritis of knees, bilateral acute December 14, 2 025 10:40am [facility] Work Phone: [phone] 271-566909-03-2024 NoteGeneral Surgery Office/Clinic Note Chief Complaint consultation [...] Date Status SARS-CoV-2 (COVID-19) Ad26 vaccine 08/04/2020 [facility]:Result Comment: Electronically Signed By: ABDULAZIZ WILSON, Cristian Doshi\Date and Time Signed: 01/27/24 16:18 [id number] Instructions* Patient Instructions* Yolanda Gutierrez MD - [...] If you do not have a responsible ross carrier driver (family member or friend) with you [...] If you do not have a responsible ross carrier driver (family member or friend) withyou to take you home, your exam cannot be done with sedation and will be cancelled. Please bring a list of all of your current medications, including any Mmon-[id number]-[id number] medications with you. Medications If you take [...] your exam. 2 04/2019 [facility] History and physical note * Yolanda Gutierrez MD - 09/25/2022 2:03 PM EDT Hepatology [facility] HPI consult by Dr Rush for [...] distress HEENT negative no icterus Lungs CTA alyssai COR rrm- Abdomen benign she had a [...] MD cc dr Rush documented [facility] Evaluation note* Encounter Date Diagnosis Assessment Notes Treatment Notes Treatment Clinical Notes Aug, Menopause (ICD-10 - Z78.0) [facility] Other 04-03-2023 Evaluation note* Encounter Date Diagnosis [...] and consequences of not detecting early cancer [facility] [employer] Other Evaluation + Plan note No data available for this section [facility] Evaluation note* Diagnosis Polyp of colon, unspecified part of colon, unspecified type- Primary Liver hemangioma Hemangioma of intra-abdominal structures documented in this encounter [facility] note* Diagnosis Polyp of colon, unspecified part of colon, unspecified type Liver hemangioma Hemangioma of intra-abdominal structures documented in this encounter [facility]No [facility] Other Evaluation note* Diagnosis Onset Date Resolution Status Cavernous hemangioma of liver acute Knee pain, bilateral acute Menopause acute Obesity acute Screening for colon cancer a cute Medicare annual wellness visit, initial noneactive Screening mammogram for breast cancer noneactive [facility] Work Phone: Evaluation noteNo assessment information available [facility] Work Phone: History general Narrative - [...] hysterectomy Hospitalization History c section, childbirth [facility] Other Hospital Discharge instructions No data available for this section [facility] [employer] [facility] note No data available for this section [facility] [employer] Reason for referral (narrative)* Outpatient Procedure (Routine) - Authorized Specialty Diagnoses / Procedures Referred By Ernst berry Referred To Contact [facility] Diagnoses Polyp of colon, unspecified part of colon, unspecified type Liver hemangioma Procedures COLONOSCOPY DIAGNOSTIC COLONOSCOPY FLX DX W/COLLJ SPEC WHEN PFRMD Yolanda Stafford MD [address] [place] [address] [facility] Disease [facility] [place] [address] Referral ID Status Reason Start Date Expiration Date Visits Requested Visits Authorized [id number] Authorized Auto-Generat ed Referral 09/25/2022 09/26/2023 1 1 * Diagnostic Procedure Only (Routine) - Authorized Specialty Diagnoses / Procedures Referred By Contac t Referred To Contact [facility] Diagnoses Polyp of colon, unspecified part of colon, unspecified type Liver hemangioma Procedures US ABD RIGHT UPPER QUADRANT US ABDOMINAL REAL TIME W/IMAGE LIMITED Yolanda Stafford MD [address] [place] [address] [facility] Imaging Referral ID Status Reason Start Date Expiration Date Visits Requested Visits Authorized [id number] Authorized Auto-Generat ed Referral 09/25/2022 10/25/2023 1 1 [facility] for referral (narrative)* Diagnostic Procedure Only (Routine) - Closed Specialty Diagnoses / Procedures Referred By Ernst t Referred To Contact [facility] IMAGING Diagnoses Polyp of colon, unspecified part of colon, unspecified type Liver hemangioma Procedures US ABD RIGHT UPPER QUADRANT US ABDOMINAL REAL TIME W/IMAGE LIMITED Yolanda Stafford MD [address] [place] [address] Us Imaging [place] [address] Referral ID Status Reason Start Date Expiration Date V isits Requested Visits Authorized [id number] Closed Auto-Generate d Referral 09/25/2022 10/25/2023 1 1 [facility] for referral (narrative)No reason for referral information availableLicking [facility] Hospital Work Phone: Reason for visit Narrative* Diagnostic Procedure Only (Routine) - Closed Specialty Diagnoses / Procedures Referred By Ernst t Referred To Contact US IMAGING Diagnoses Polyp of colon, unspecified part of colon, unspecified type Liver hemangioma Procedures US ABD RIGHT UPPER QUADRANT US ABDOMINAL REAL TIME W/IMAGE LIMITED Yolanda Stafford MD [address] [place] [address] [facility] [place] [facility] Referral ID Status Reason Start Date Expiration Date V isits Requested Visits Authorized [id number] Closed Auto-Generate d Referral 09/25/2022 10/25/2023 1 1 [facility] Summary Purpose Family History Relationship Condition Age at Onset Recorded Date/T rakan brother Asthma Unknown father Malignant neoplasm Unknown Family history of lung cancer Unknown mother Family history of mental disorder Unknown Advance Directives Documents on File Type Date Recorded 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 Advance Directive(s) 10/13/2013 10:12 PM [...] DATE CREATED AUTHOR 01/17/2022 [facility] DATE CREATED AUTHOR AUTHOR'S ORGANIZ ATION 09/27/2022 [facility] DATE CREATED AUTHOR AUTHOR'S ORGANIZ ATION 10/04/2022 [facility] DATE CREATED AUTHOR AUTHOR'S ORGANIZ ATION 03/26/2024 [facility] DATE CREATED AUTHOR AUTHOR'S ORGANIZ ATION 12/25/2024 [facility] REASON FOR VISIT (unrecogniz ed section and content) Reason Comments New Patient Source Comments (unrecognize d section and content) In the event this informatio n is protected by the Federal Confidentiality of Alcohol and Drug Abuse Patient Records regulations: The Federal rules restrict any use of the information to criminally investigate or prosecute any alcohol or drug abuse patient.[facility] HospitalIn the event this information is protected by the Federal Confidentiality of Alcohol and Drug Abuse Patient Records regulations: The Federal rules restrict any use of the information to criminally investigate or prosecute any alcohol or drug abuse patient.[facility] Care Teams (unrecognized sec tion and content) Night Time Nanny Relationship Specialty Start Date End Date Peter Rush DO PCP - General Internal Medicine 09/11/12 Night Time Nanny Relationship Specialty Start Date End Date Peter [...] BE BASED ON THE PRIMARY CLINICAL RECORDS. [employer] [facility] provides no warranty or guarantee of the accuracy or completeness of information in this document.
--- NOTE | 2025-02-10 12:24 | PM.PRESUREVA ---
History of Present Illness History of Present Illness Chief complaint: Left Foot Osteoarthritis Narrative: Ms. Bettina Larios is a pleasant 69-year-old female who presents to presurgical testing with complaints of left foot pain. She has midfoot arthritis and plantar fasciitis. She is scheduled for left midfoot fusion endoscopic plantar fasciotomy and gastroc recession left side Review of Systems ROS Narrative REVIEW OF SYSTEMS: Negative except as stated in HPI, ten or more systems reviewed. Constitutional: No fever, chills, weakness ENT: no sore throat or epistaxis Cardiovascular: No edema, chest pain, palpitations, or activity intolerance Respiratory: No shortness of breath, cough, or wheezing Musculoskeletal: Complaints of pain to left foot and bilateral knees with the left knee being worse than the right Gastrointestinal: No abdominal pain, constipation, diarrhea, or vomiting Genitourinary: No dysuria or hematuria Neurological: No numbness, tingling, weakness, or headache Psychiatric: No mood changes PFSH PFSH Medical History (Updated 02/10/25 @ 12:32 by Hetal Verdugo) Bilateral knee pain ?M25.561 - Pain in right knee (ICD-10) ?M25.562 - Pain in left knee (ICD-10) Osteoarthritis of knees, bilateral ?M17.0 - Bilateral primary osteoarthritis of knee (ICD-10) PONV (postoperative nausea and vomiting) ?R11.2 - Nausea with vomiting, unspecified (ICD-10) ?Z98.890 - Other specified postprocedural states (ICD-10) Liver lesion ?K76.9 - Liver disease, unspecified (ICD-10) Malignant neoplasm of colon ?C18.9 - Malignant neoplasm of colon, unspecified (ICD-10) Hepatic hemangioma ?D18.03 - Hemangioma of intra-abdominal structures (ICD-10) Obesity ?E66.9 - Obesity, unspecified (ICD-10) GERD (gastroesophageal reflux disease) ?K21.9 - Gastro-esophageal reflux disease without esophagitis (ICD-10) Surgical History H/O foot surgery ?Z98.890 - Other specified postprocedural states (ICD-10) History of lithotripsy ?Z98.890 - Other specified postprocedural states (ICD-10) History of total abdominal hysterectomy and bilateral salpingo-oophorectomy ?Z90.710 - Acquired absence of both cervix and uterus (ICD-10) ?Z90.722 - Acquired absence of ovaries, bilateral (ICD-10) ?Z90.79 - Acquired absence of other genital organ(s) (ICD-10) Hx of lumbosacral spine surgery ?Z98.890 - Other specified postprocedural states (ICD-10) H/O excision of hemangioma ?Z98.890 - Other specified postprocedural states (ICD-10) ?Z86.018 - Personal history of other benign neoplasm (ICD-10) H/O cystoscopy ?Z98.890 - Other specified postprocedural states (ICD-10) History of cholecystectomy ?Z90.49 - Acquired absence of other specified parts of digestive tract (ICD-10) H/O esophagogastroduodenoscopy ?Z98.890 - Other specified postprocedural states (ICD-10) H/O colonoscopy ?Z98.890 - Other specified postprocedural states (ICD-10) Family History Father Family history of cancer Other Atrial fibrillation Dementia Family history of stroke Parkinsons Social History Within the past year, how often did you have a drink containing alcohol: monthly or less Within the past year, how often did you have six or more drinks on one occasion: never Smoking status: Never smoker Second hand tobacco smoke exposure: No Non-prescribed substance use: denies use Previous occupational history: Retired Highest level of school completed/degree received: some college, no degree Meds Home Medications and Allergies Home Medications ?Medication ?Instructions ?Recorded ?Confirmed ?Type estradiol 0.01% (0.1 mg/gram) 1 appful vaginal DAILY 02/20/24 02/10/25 History vaginal cream aspirin 81 mg capsule 81 mg PO DAILY 03/03/24 02/10/25 History krill oil 500 mg capsule 500 mg PO DAILY 03/03/24 02/10/25 History Bacillus coagulans 500 million 1 tab PO DAILY 02/10/25 02/10/25 History cell-inulin 1.25 gram chewable tablet (Align Dualbiotic) ascorbic acid (vitamin C) 500 mg 500 mg PO QDAY 02/10/25 02/10/25 History tablet (Vitamin C) calcium carbonate-vitamin D3 500 1 cap PO DAILY 02/10/25 02/10/25 History mg (1,250 mg)-50 unit capsule cetirizine 10 mg tablet (24Hour 10 mg PO DAILY 02/10/25 02/10/25 History Allergy) cranberry 500 mg capsule 500 mg PO DAILY 02/10/25 02/10/25 History multivitamin with minerals-folic 1 tab PO DAILY 02/10/25 02/10/25 History acid 80 mcg chewable tablet (Centrum MultiGummies Women) Allergies Allergy/AdvReac Type Severity Reaction Status Date / Time diclofenac (From [employer]) Allergy Intermediate edema Verified 02/10/25 10:28 meloxicam Allergy Intermediate edema Verified 02/10/25 10:28 morphine AdvReac Unknown Hypotension Verified 02/10/25 10:28 latex AdvReac Hives Verified 02/10/25 10:28 Latex, Natural Rubber AdvReac Hives Verified 02/10/25 10:28 Exam Narrative Exam Narrative: Constitutional: Awake, alert, comfortable, well-appearing, nontoxic, interactive, vital signs as charted Head: Normocephalic, atraumatic Eyes: Conjunctiva and lids normal to inspection, pupils normal ENT: Tympanic membrane on the right without bulge or retraction and cerumen impaction on the left unable to visualize tympanic membrane, nonerythematous, noninjected, naris patent, posterior oropharynx clear, oral mucosa moist Neck: Supple, normal appearance, normal range of motion, no meningeal signs, no lymphadenopathy Respiratory: No respiratory distress, breath sounds clear Cardiovascular: Regular rate and rhythm, strong and regular heart tones Abdomen: Nontender, normal bowel sounds, soft, no CVA tenderness Musculoskeletal: Antalgic gait favoring left lower extremity no swelling or edema. Pain to left midfoot with palpable osteophytes positive pedal pulses both posterior tibialis and dorsalis pedis and 2+ Skin: No rashes or induration, no lesions, only visible skin inspected Neuro: No neurological deficits, normal sensation Psychiatric: Oriented ?3, normal affect Assessment and Plan Assessment and Plan (1) Arthritis of left midfoot: (2) Plantar fasciitis of left foot: Plan Plan is for left midfoot fusion, endoscopic plantar fasciotomy, gastroc recession left side with Dr. Javier Escobedo on 02/22/2025
== END 2025-02-10 10:00 | disposition home or self-care (01) ==
LOC: PST 10:00
PROVIDERS: PCP Internal Medicine; Visit Provider Podiatrist Foot & Ankle Surgery
DX: Z01.810 Encounter for preprocedural cardiovascular examination (principal); Z01.818 Encounter for other preprocedural examination; M72.2 Plantar fascial fibromatosis; M19.072 Primary osteoarthritis, left ankle and foot
CPT/HCPCS: 93005; G0463

== ENCOUNTER 2025-02-17 10:30 | Outpatient (RCR) | payer MEDICARE, OTHER, SELFPAY | END 2025-02-18 13:05 | disposition home or self-care (01) | LOC: PT 10:30 | PROVIDERS: PCP Internal Medicine; Visit Provider Podiatrist Foot & Ankle Surgery | DX: M79.672 Pain in left foot (principal) | CPT/HCPCS: 97116; 97161 ==

== ENCOUNTER 2025-02-22 06:18 | Day surgery (SDC) | payer MEDICARE, OTHER, SELFPAY ==
--- OUTSIDE RECORDS SUMMARY | 2024-11-15 | XMS_ITS ---
Author Name Auto Generated Organization OHIP Care Team Providers Care Extrusion Press Supervisor Name Role Phone Joseph WILSON, Felisa Gauthier Attending Unavailable Joseph WILSON, Felisa Gauthier Attending Unavailable Joseph WILSON, Felisa Gauthier Attending Unavailable Joseph WILSON, Felisa Gauthier Attending Unavailable NILCristian Donaldson Attending Unavailable NILAnika, Cristian Hanson Attending Unavailable PROBLEMS No Problem Records Found PROCEDURES No Procedure Records Found RESULTS GENERAL SURGERY OFFICE/CLINIC NOTE Obser judy: 03/24/2024 4:22 PM Status: F Source: [facility] General Surgery Office/Clini c Note Chief Complaint post operative follow up [...] Status SARS-CoV-2 (COVID-19) Ad26 vaccine 08/04/2020 Recorded Result Comment: Electronical ly Signed By: ABDULAZIZ WILSON, Cristian Hanson\.br\Date and Time Signed: 03/24/24 16:23 EDT AMBULATORY VISIT SUMMARY Observed: 03/24 4:08 PM Status: F Source: [facility] Ambulatory Visit Summary BETTINA REED :1955 Visit Date:03/24/2024 Ambulatory Visit Instructions Your Care Team Attending Physician - Cristian CINTRON MD Primary Care Physician - ARANZA PICHARDO DO This Is Your Medications List Contact prescribing [...] you for choosing us for your care. REMINDERS Observed: 03/04/2024 2:13 PM Status: F Source: [facility] Reminders From: Patti Douglas LPN To: GSN - Clinical; Sent: 03/04/2024 14:13:04 EDT Show up: 02/01/2034 07:00:00 EDT Subject: colonoscopy recall Due Date/Time: 03/03/2034 07:00:00 EDT Reminder/Recall Patient due for screening colonoscopy 03/03/2034. ALLERGIES DATE TYPE / CODE NAME / CODE REACTION SEVERITY SOURCE /[id number](SNOMED CT) morphine [id number] [facility] ENCOUNTERS ADMIT/DISCHARGE ACCOUNT NUMBER ADMITTING ENCOUNTER CLASS LOC ATION SOURCE 11/15/2024/ 5 [id number] [facility] 11/01/2024/ 5 [id number] [facility] 5 [id number] [facility] PM [facility] 07/12/2024/ 5 [id number] Ambulatory PM [facility] 03/24/2024/ 4 [id number] [facility] GS [facility] 03/03/2024/ 4 [id number] Ambulatory CD:[id number] 7Building:CD :[id number] [facility] 12/26/2023 [id number] Ambulatory GS [facility] [facility] PAYERS ENCOUNTER GUARANTOR PAYER SUBSCRIBER SOURCE 11/15/2024 Bettina Vasquez: [address] [place] [id number] Primary Insurance:MedicarePol icy Number: Effective Date:1779-34-33Blrc Name:[place] [address]JO: Bettina SalasleyDOB: [id number] [place] [id number] [facility] 11/15/2024 Secondary Insurance:Medical MutualPolicy Number: Effective Date:5877-98-61Ddlk Name:[place] [address]AH: Bettina Donaldson JosueleyDOB: [id number] [address] 11/01/2024 Bettina L JosueleyDOB: [place] [address] Primary Insurance:MedicarePol icy Number: Effective Date:2722-90-61Nrqa Name:[place] [address]UP: Bettina Donaldson LepleyDOB: [id number] [address] 11/01/2024 Secondary Insurance:Medical MutualPolicy Number: Effective Date:9496-41-55Nxhy Name:[place] [address]IG: Bettina Donaldson LepleyDOB: [id number] [place] [address] [place] [address] 10/11/2024 Bettina L LepleyDOB: [place] [address] Primary Insurance:MedicarePol icy Number: Effective Date:4296-54-96Cfgl Name:[place] [address]GR: Bettina Donaldson LepleyDOB: [id number] [place] [id number] [facility] 10/11/2024 Secondary Insurance:Medical MutualPolicy Number: Effective Date:5078-04-79Zczw Name:[place] [address]GX: Bettina Donaldson BriannaDOB: [id number] [address] 07/12/2024 Bettina L BriannaDOB: [place] [address] Primary Insurance:MedicarePol icy Number: Effective Date:5939-17-46Ygry Name:[facility] [address] [address]AK: Bettina Donaldson BriannaDOB: [id number] [address] 07/12/2024 Secondary Insurance:Medical MutualPolicy Number: Effective Date:1457-08-67Ired Name:[place] [address]PT: Bettina Salasmiguel angelDOB: [id number] [address] 03/24/2024 BETTINA L BRIANNADOB: [address]Tel: ~~(41 (HP) Primary Insurance:MEDICAREPol icy Number: [id number] Date:2504-73-74[address] [address], [place] [address]VC: BETTINA L BRIANNADINH [facility] 03/24/2024 Secondary Insurance:MEDICAL MUTUALPolicy Number: [id number] Date:2023-12-26 BETTINA Anika NENO [facility] 03/03/2024 BETTINA REEDDOB: [address]Tel: ~~(41 (HP) Primary Insurance:MEDICAREPol icy Number: [id number] Date:0604-45-89[address] [address], [place] [address]ST: [facility] 03/03/2024 Secondary Insurance:MEDICAL MUTUALPolicy Number: [id number] Date:2023-12-26 [facility]
[2025-02-10 10:37] VITALS: BP 152/86; PULSE 66; O2SAT 98; BMI 35.0
[2025-02-22 06:28] LABS: Hematocrit 38.8 % (36.0-48.0); Hemoglobin 13.4 g/dL (12.0-16.0); Immature Granulocytes Abs Auto 0.01 10^3/uL (0.00-0.03); Immature Granulocytes Pct Auto 0.2 % (0.0-0.5); Lymphocytes Absolute Auto 1.8 10^3/uL (1.2-3.8); Mean Corpuscular HGB Conc 34.5 g/dL (29.9-35.2); Mean Corpuscular Hemoglobin 31.7 pg (26.7-34.0); Mean Corpuscular Volume 91.7 fL (81.0-99.0); Platelet Count 247 10^3/uL (150-450); Red Blood Count 4.23 10^6/uL (4.20-5.40); White Blood Count 4.9 10^3/uL (4.0-11.0)
[2025-02-22 06:48] VITALS: BP 157/85; PULSE 94; TEMP 36.2; O2SAT 97; BMI 34.6
[2025-02-22] MEDS: CEFAZOLIN SODIUM/DEXTROSE,ISO 2 GM/50 ML PIGGYBACK IV (08:00)
--- NOTE | 2025-02-22 08:13 | PC.NURSE ---
0728- Final timeout completed. Patient placed on monitor and O2 @ 2l/min via nc. 0729- Patient medicated per [facility] [employer]. 0730- Patient positioned on right hip. 0732- Left popliteal landmarked per US. 0736- Left popliteal site injected. 0738- Left popliteal block complete. 0739- Patient positioned on back. Left adductor landmarked per US per [employer]. 0740- left adductor injected. 0742- Left adductor block completed. Patient tolerated it well. See posted vital signs.
--- NOTE | 2025-02-22 08:16 | XR_ITS ---
The [address] [address] Patient Name: RADHA REED MRN: [id number] date: 1955 Sex: F Assigned Patient Location: PT Current Patient Location: [facility] Accession/Order Number: [id number] Exam Date: 02/22/2025 10:45 Report Date: 02/22/2025 12:20 At the request of: RATNA CHOU DPM Procedure: XR foot LT min 3V LEFT FOOT - 3 views CLINICAL DATA: Follow-up after surgery COMPARISON: CT 06/21/2024 and plain films 06/15/2024 AP, lateral and oblique views were obtained. There is a plantar splint with associated artifact limiting evaluation. There is a new fusion apparatus with associated screws along the dorsal aspect of the second tarsometatarsal joints. There are overlying skin mary. There is no obvious acute fracture or dislocation. A plantar calcaneal spur is seen. There are no significant soft tissue abnormalities. XR/XR foot LT min 3V IMPRESSION: LIMITED STUDY DUE TO SPLINT ARTIFACT. NEW POSTOPERATIVE CHANGES AT THE SECOND TARSAL METATARSAL REGION. Impression dictated by: Latha Roblero M.D. 02/22/2025 12:20 PM Dictation Location: [place] [address] Electronically authenticated by: [id number] Y Date: 02/22/2025 12:20
--- NOTE | 2025-02-22 08:19 | PM.ORONB ---
Brief Operative Note Date of procedure: 02/22/25 Pre-op diagnosis general: Left midfoot arthritis, plantar fasciitis and equinus Post-op diagnosis: same as pre-op Procedure: Procedure performed: Left 2nd and 3rd tarsometatarsal joint fusion, endoscopic plantar fasciotomy and gastrocnemius recession Indications for procedure: Bettina is a 69-year-old female who presented to my office over the winter relating to worsening left midfoot pain particularly in the midfoot. Pain is worse with activity particularly at the end of the day and has been described as achy. She also relates to worsening pain in the plantar medial instep especially with first steps in the morning. She initially was treated nonoperatively with stretching, ice, massage as well as shoe and activity modification. She then presented to my office over this summer relating that nonoperative care had not significantly helped. After reviewing x-rays and CT scan which demonstrated focal degenerative joint findings in the 2nd and 3rd tarsometatarsal joints of the midfoot I discussed the potential risks and benefits of surgical intervention and specifically discussed midfoot fusion which she elected to undergo. Due to her symptoms consistent with plantar fasciitis we also discussed potential risks and benefits of plantar fasciotomy and gastroc recession and she elected to undergo these procedures as well. During the preoperative assessment immediately prior to surgery this morning she noted a blister on her dorsal aspect of her second toe. Findings were consistent with a partial-thickness ulceration on the dorsal aspect of the second toe without signs of infection. I discussed with her family regarding this ulceration and the possibility of delaying the procedure as it does increase her risk of infection. Fortunately this is away from the surgical site and can be covered during the procedure. Patient and her family wish to proceed with the surgery as scheduled. Intraoperative findings: Varicose veins noted throughout the left lower extremity. Ankle joint dorsiflexion was to neutral but not passed. Plantar fascia was thickened and scarred consistent with chronic plantar fasciitis. Degenerative bone changes noted in the 2nd and 3rd tarsometatarsal joints. Dorsal osteophytes noted at 2nd and 3rd tarsometatarsal joints. Significant cartilage erosion with over 50% of full-thickness cartilage degeneration on each joint. Bone quality at the midfoot was slightly soft and consistent with osteopenia. Procedure in detail: Patient was identified in preop holding by myself which time correct side site were marked and consent was obtained. Regional anesthesia was performed by the anesthesia team and patient was brought back to the operating theater placed on table in supine position. A thigh tourniquet was placed. Preoperative antibiotics were started and the left lower extremity was prepped and draped in usual sterile fashion. Care was taken then to cover the ulceration on the dorsal aspect of the second toe. Formal timeout was performed in the left lower extremity was exsanguinated and the tourniquet was inflated. Stab incision over the medial aspect of the left in-step at the glabrous skin junction was used followed by blunt dissection and the medial band of the plantar fascia was identified. Trochar and cannula were then placed medial to lateral. A lateral stab incision was made to allow passage of the trochar and cannula. Camera was inserted into the lateral portal and a hook blade was placed into the medial portal. 50% of the plantar fascia was released and healthy muscle was noted. The site was flushed with saline and instrumentation was removed. Closure with nylon suture was then undertaken. A longitudinal incision over the posterior?medial aspect of the calf at the level of the gastrocnemius aponeurosis. Combination sharp and blunt dissection with all bleeders being coagulated gained access to the gastrocnemius aponeurosis. Once the aponeurosis was isolated a speculum was inserted from the medial to lateral position just superficial to the aponeurosis. The speculum allowed full visualization of the aponeurosis and the foot was held in maximal dorsiflexed position. A fifteen blade was used to transversely incise the gastrocnemius aponeurosis while protecting the sural nerve and vein. 10 degrees of ankle joint dorsiflexion was obtained. The area was flushed with copious sterile saline and skin was closed in layers. Incision was placed between the 2nd and 3rd tarsometatarsal joints. Combination sharp and blunt dissection gained access to these joints. The adjacent tendon and neurovascular structures were protected throughout the procedure with all bleeders being coagulated. Capsulotomy was performed gaining access to the 2nd and 3rd tarsometatarsal joints. The joints were prepared with osteotomes and rongeurs and curettes. Each joint was then drilled with a 2.0 mm drill bit. The surgical site was irrigated with copious months of sterile saline. After the joint was prepared there was osseous deficit most significantly in the second tarsometatarsal joint therefore 1 cc of Sparc bone allograft was packed into the fusion sites. The 2nd tarsal metatarsal joint was manually reduced and pinned with a guidewire. A 4.0 mm cannulated screw was placed accordingly over the guidewire noting compression at the second tarsometatarsal joint. Fluoroscopy confirmed hardware placement. Then a stab incision was placed over the shaft of the third metatarsal and blunt dissection was performed down to the third metatarsal base. The third tarsometatarsal joint was manually reduced then pinned with a guidewire. Fluoroscopy confirmed placement of the guidewire and an additional 4.0 mm cannulated screw was placed accordingly over the guidewire noting compression at the third tarsometatarsal joint. To enhance stability an 18 x 18 mm staple was placed accordingly spanning the second tarsometatarsal joint. Fluoroscopy confirmed hardware placement and surgical sites were irrigated with copious amounts of sterile saline. Incisions were closed in layers. The tourniquet was deflated noting a prompt hyperemic response. A dry sterile dressing consisting of Xeroform, 4 x 4's, ABDs and Kerlix were applied. Then a multilayered modified Hunter posterior splint was placed from the forefoot to the popliteal fossa. Patient tolerated the procedure and anesthesia well was transported to the recovery room with vital signs stable and brisk capillary refill to the left toes. Postoperative plan: Discharge home under family's care Prescriptions were sent to her pharmacy using my office EMR Nonweightbearing left foot See discharge instructions for further plan Follow-up with me in 1 to 2 weeks Implants: Medline 4.0 mm screws x2 and a 18 x 18 mm staple 1cc Sparc bone allograft Anesthesia: regional and General-LMA Surgeon: Javier Luke Estimated blood loss (mL): 10 Tourniquet time (min): 82 Pathology: none sent Condition: stable Disposition: PACU
[2025-02-22 10:40] VITALS: BP 109/71; PULSE 64; TEMP 36.2; O2SAT 91
[2025-02-22 10:55] VITALS: BP 129/75; PULSE 62; O2SAT 93
[2025-02-22] MEDS: ONDANSETRON 4 MG RAPDIS TABLET SL (11:06)
[2025-02-22 11:10] VITALS: BP 134/73; PULSE 65; O2SAT 96
[2025-02-22 11:40] VITALS: BP 136/73; PULSE 64; O2SAT 92
[2025-02-22 12:10] VITALS: BP 144/73; PULSE 69; O2SAT 94
== END 2025-02-22 12:30 | disposition home or self-care (01) ==
PROVIDERS: Anesthesiology; PCP Internal Medicine; Visit Provider Podiatrist Foot & Ankle Surgery
PROC: (CPT 27687; principal; 2025-02-22 07:30)
DX: M19.072 Primary osteoarthritis, left ankle and foot (principal); M72.2 Plantar fascial fibromatosis; I83.92 Asymptomatic varicose veins of left lower extremity; Z90.49 Acquired absence of other specified parts of digestive tract; Z90.710 Acquired absence of both cervix and uterus; Z90.2 Acquired absence of lung [part of]; Z87.442 Personal history of urinary calculi; Z79.899 Other long term (current) drug therapy
CPT/HCPCS: 27687; 28730; 29893; 36415; 64445; 64450; 73630; 76000; 76942; 82948; 85025; C1713; J0131; J0665; J0690; J1100; J1200; J2250; J2405; J2704; Q0162

== ENCOUNTER 2025-03-25 10:29 | Outpatient (OUT) | payer MEDICARE, OTHER, SELFPAY ==
--- OUTSIDE RECORDS SUMMARY | 2025-03-25 10:34 | XMS_ITS | Clinical Summary ---
Author Organization [facility] Address [address] [place] [id number] Care Team Providers Care Generator Operator Name Role Phone Victor ManuelPeter Mela CHAIREZ Primary Care Provider [phone] Allergies Active AllergyReactionsCriticalityNoted ZtiuJennkuacZpwjhWdibWqinuf69/03/2023 Sore rash if latex on skin for a period of time MorphineOther: See Kruwzlnt49/26/2013 nausea Medications MedicationSigDispense QuantityRefillsLast FilledStart DateEnd DateStatus Ascorbic Acid (VITAMIN C) 1,000 mg tablet Indications:Mid back pain,Lumbar degenerative disc disease,Numbness and tingling in right hand,Numbness of foot,OsteoarthritisTake 1 tablet by mouth once daily.0 02/26/2013ctive omeprazole (PRILOSEC) 10 mg capsule Indications:Mid back pain,Lumbar degenerative disc disease,Numbness and tingling in right hand,Numbness of foot,OsteoarthritisTake 1 capsule by mouth once daily. ctive cranberry conc-ascorbic acid 4,200-20 mg cap Take 2 tablets by mouth once daily.Active cholecalciferol (VITAMIN D3) 50 mcg (2,000 unit) tablet Take 2,000 Units by mouth once daily.Active MULTIVITAMIN/IRON/FOLIC ACID (CENTRUM WOMEN ORAL) Take by mouth once daily.12/11/2016Active CYANOCOBALAMIN, VITAMIN B-12, (VITAMIN B-12 ORAL) Take by mouth once daily.12/11/2016Active KRILL OIL ORAL Take 350 mg by mouth once daily.Active estradiol (ESTRACE) 0.01 % (0.1 mg/gram) vaginal cream Indications:Atrophic vaginitisUse 1 g vaginally two times a week. 42.5 g ctive biotin 5,000 mcg ODT Take by mouth.Active Bifidobacterium infantis (ALIGN ORAL) Take by mouth.Active MEDICATION, NON-DATABASE Collagen powder dailyActive Active Problems ProblemNoted DateDiagnosed DateGERD (gastroesophageal reflux disease)07/16/2016 Arthritis, advymea9107/03/2016Spinal stenosis, ocykqq1211/11/2013Radiculitis, dzqewwbpdde94/19/2014bdominal pain07/15/2013Hepatic djbhliodvz30/20/2014Kidney stone04/21/2013Meatal rjaazqtw40/25/2013Recurrent UTI04/19/2013Hydronephrosis, nfriakzvs98/13/2013 Family History Medical HistoryRelationCommentsNoneBrother 2NoneFatherarrythmiaMotherarrythmia Sister 2RelationStatusCommentsBrother 1AliveBrother 2FatherAliveMotherAlive Sister 1AliveSister 2 Social History Tobacco UseTypesPacks/DayYears UsedDateSmoking Tobacco: NeverSmokeless Tobacco: NeverAlcohol UseStandard Drinks/WeekCommentsYes0 (1 standard drink = 0.6 oz pure alcohol)occ.Area Deprivation IndexAnswerDate RecordedNational Score (1-100), lower number is lower biff339609/25/2022State Score (1-10), lower number is lower igtf6523Data from: https://www.neighborhoodatlas.[facility].edu/. Last address used for [address] regnantCommentsNoSex and Gender InformationValueDate RecordedSex Assigned at WipvzByzxgk58/17/2021 2:18 PM ESTLegal UqbOqpaqe85/19/2013 8:46 AM EDTGender JcqmsnhlVfzahp62/17/2021 2:18 PM ESTSexual OrientationNot on file Last Filed Vital Signs Vital SignReadingTime TakenCommentsBlood Wdgopzwe221/7804/11/2021 2:53 PM EST Auwvl94130/17/2021 2:53 PM CWEMjzdykjqxwu47.3 ??C (97.3 ??F)07/19/2016 4:07 PM ESTRespiratory Dumg288407/19/2016 4:07 PM ESTOxygen Ilncumfqua70%07/19/2016 4:07 PM ESTInhaled Oxygen Concentration--Tfxkrt258.7 kg (222 lb)09/25/2022 1:20 PM VQAKhglrd356.6 cm (5' 6 )09/25/2022 1:20 PM EDTBody Mass Index35.8309/25/2022 1:20 PM EDT Plan of Treatment Health MaintenanceDue DateLast DoneCommentsAnxiety Myyullzjb74/20/1976Depression Bkafxlgnz31/20/1976Hepatitis C Llpqvdawi94/20/1976DTaP,Tdap,Td Vaccine (1 - Tdap)1976Mammogram Ovvlgksvl42/20/1998CT Emhhbrjqvvhh87/20/2003Cologuard (FIT-DNA)2002Fecal Occult Blood2002Lipid Nrarfjyhm10/20/2003 Vnbutarllkeml03/20/2003Pneumococcal Vaccine: 50+ (1 of 1 - PCV)2007 Shingrix Vaccine (1 of 2)2007Medicare Annual Wellness Visit05/26/2022one Density Lmjnjjcul10/20/6872Pygvzywgeza41/15/202401/, 06/09/2013Colorectal Cancer Oplymswyp37/15/2024dvance Directive Bgzvqpdvpp01/01/2025Covid-19 Vaccine ( - season)503/04/2021Influenza Vaccine (#1)2025 04/09/2022, 03/14/2018, 02/23/2017Diabetes Ksdbwygqh95/08/2022, 04/26/2015, 01/13/2015, Additional history existsRSV Vaccine (1 - 1-dose 75+ series)2032 Medical Devices ImplantedTypeAreaManufacturerDevice IdentifierShelf Expiration DateModel / Serial / LotGraft Enhance Demineralized Cortical Fiber Bone Allograft Dehydrate 2.5ml - [id number] Implanted:Q[facility]: Bone - FootMTF 08/01/2018422204 / [id number] / Description:graft brought into room at 0840. Opened sterily to field by Donovan Christensen RN to Abigail Hayes DESK PEN SET ASSEMBLER at 1015. Also handled by Moe Ulrich MD and Abigail Carey MD. No preparation required.Fdi-Xc-P-Kind Implant - Crushed Cancellous 15cc Implanted:Qty: 1 [facility]: Bone - FootMTF 01/10/2019400075 / [id number] / Description:LYT-JN-H-KIND IMPLANT - Crushed Cancellous 15cc. Brought into room at 0840. [facility] Donovan Christensen RN to Abigail Hayes DESK PEN SET ASSEMBLER at 1015. Also handled by Moe Ulrich MD, and Abigail Carey MD. No preparation required. Plate 17mm Bone 2 Hole Compression Lower Extremity - [id number] Implanted:Qty: 1 [facility]19/[facility] Bone - Foot [employer] [id number] / / Plate Uni-Cp Stainless Steel 25mm Bone 2 Hole Compression - [id number] Implanted:Qty: 1 [facility]19/2016 [facility] Bone - Foot [employer] [id number] / / Plate Lcp Long T Stainless Steel 61mm Bone 2 Hole Variable Angle Fusion - [id number] Implanted:Qty: 1 [facility]19/[facility] Bone - Foot SYNTHES [id number] / / Screw Lcp 2.7mm T8 Stainless Steel 16mm Bone Variable Angle Lock Self Tap - [id number] Implanted:Qty: 1 on [facility]19/[address] [facility] [address]: Bone - Foot SYN[employer] SYNTHES [id number] / / Screw Lcp 2.7mm T8 Stainless Steel 18mm Bone Variable Angle Lock Self Tap - [id number] Implanted:Qty: 1 on 07/19/[address] [address] [facility]crewRight: Bone - Foot SY[employer] SYNTHES [id number] / / Screw Lcp 2.7mm T8 Stainless Steel 18mm Bone Stardrive Self Tap Modular - [id number] Implanted:Qty: 1 on 07/19/[address] [address] [facility]crewRight: Bone - Foot [employer] SYNTHES [id number] / / Screw Lcp 2.7mm T8 Stainless Steel 16mm Bone Stardrive Self Tap Modular - [id number] Implanted:Qty: 1 on 07/19/[address] [address] [facility]crewRight: Bone - Foot [employer] SYNTHES [id number] / / Screw Uni-Cp 3.5mm Stainless Steel 16mm Bone Lock Replacement Washer - [id number] Implanted:Qty: 2 on 07/19/[address] [facility] [address] [facility]crewRight: Bone - Foot [employer] [id number] / / Screw Lcp 2.7mm T8 Stainless Steel 22mm Bone Variable Angle Lock Self Tap - [id number] Implanted:Qty: 1 on 07/19/[address] [address] [facility]crewRight: Bone - Foot SY[employer] SYNTHES [id number] / / Screw Uni-Cp 3.5mm Stainless Steel 20mm Bone Lock Replacement Washer - [id number] Implanted:Qty: 1 on 07/19/[address] [address] [facility]crewRight: Bone - Foot [employer] [id number] / / Screw Uni-Cp 3.5mm Stainless Steel 28mm Bone Lock Sterile Foot - [id number] Implanted:Qty: 1 on 07/19/[address] [facility] [address]crewRight: Bone - Foot [employer] [id number] / / Screw Lcp 4mm 5mm 1.35mm .5 Thread Small Hexagon Reverse Cut Flute - [id number] Implanted:Qty: 1 on 07/19/[address] [address]crewRight: Bone - Foot SY[employer] SYNTHES [id number] / / Screw Lcp 2.7mm T8 Stainless Steel 30mm Bone Stardrive Self Tap Modular - [id number] Implanted:Qty: 1 on 07/19/[address] [address] [facility]crewRight: Bone - Foot SYN[employer]ES [id number] / / Washer Surfix 3.5mm Stainless Steel Orthopedic Lock Midfoot - [id number] Implanted:Qty: 4 [facility] 07[facility]19/2016 [facility]herRight: Bone - Foot [employer] [id number] / / Procedures Procedure NamePriorityDate/TimeAssociated DiagnosisCommentsCOMPREHENSIVE METABOLIC LYVYBSohntsw63/04/2023 1:20 PM EDT Polyp of colon, unspecified part of colon, unspecified type Liver hemangioma COLONOSCOPY - RWLSRMOBLO23/15/2014 9:13 AM EST from Last 3 Months or Most Recently Relevant to Health Maintenance Results * COMP METABOLIC PANEL (09/26/2022 1:20 PM EDT)ComponentValueRef RangeTest MethodAnalysis TimePerformed AtPathologist SignatureProtein, Total7.46.3 - 8.0 g/dL09/26/2022 2:15 PM [facility] LABORATORYAlbumin4.63.9 - 4.9 g/dL 09/26/2022 2:15 PM [facility] LABORATORYCalcium, Total9.78.5 - 10.2 mg/dL09/26/2022 2:15 PM [facility] LABOR[facility]ORYBilirubin, Total0.50.2 - 1.3 mg/dL09/26/2022 2:15 PM [facility] LABORATORYAlkaline Ynyidmltzib85 34 - 123 U/L09/26/2022 2:15 PM [facility] JSLSTMZKHSPPW3824 - 35 U/L 09/26/2022 2:15 PM [facility] THNJGVAELCGLS865 - 38 U/L09/26/2022 2:15 PM [facility] MGBSMZGFLHHglyjkn8812 - 99 mg/dL09/26/2022 2:15 PM [facility] LABORATORYComment: The [place] Diabetes Association (ADA) provides guidance for cutoff values for fasting glucose andrandom glucose. The ADA defines fasting as no [...] Standards of Medical Care in Diabetes 2016, [place] [employer] Association. Diabetes Care. 2016.39(Suppl 1). KTA392 - 21 mg/dL09/26/2022 2:15 PM [facility] LABORATORYCreatinine0.68 0.58 - 0.96 mg/dL09/26/2022 2:15 PM [facility] ANZCWLTHZVKmyque063385 - 144 mmol/L09/26/2022 2:15 PM [facility] LABORATORYPotassium4.63.7 - 5.1 mmol/L09/26/2022 2:15 PM [facility] PSYDZPTCOJMaapquyj96681 - 105 mmol/L 09/26/2022 2:15 PM [facility] MINQIJXRPRKD07295 - 30 mmol/L09/26/2022 2:15 PM [facility] LABORATORYAnion Gap99 - 18 mmol/L09/26/2022 2:15 PM [facility] LABORATORYEstimated Glomerular Filtration Rate97>=60 mL/min/1.73m 09/26/2022 2:15 PM [facility] LABORATORYComment:Estimated Glomerular Filtration Rate (eGFR) is calculated using the 2020 CKD-EPI creatinine equation. This equation utilizes serum creatinine, sex, and age as parameters. The creatinine assay has traceable calibration to isotope dilution-mass spectrometry. Refer to KDIGO guidelines for clinical interpretation. In patients with unstable renal function, e.g. those with acute kidney injury, the eGFRmay not accurately reflect actual GFR.Specimen (Source)Anatomical Location / LateralityCollection Method / VolumeCollection TimeReceived TimeBloodBLOOD SPECIMEN / UnknownVenipuncture / Elylagk5509/26/2022 1:20 PM EDT09/26/2022 1:21 PM EDT Narrative Authorizing ProviderResult TypeResult StatusDineshmisamia Gutierrez MDLABORATORY Final ResultPerforming OrganizationAddressCity/State/ZIP CodePhone Number [facility] [id number] [facility] [place] [address], * COLONOSCOPY - DIAGNOSTIC (06/09/2013 9:13 AM EST)ComponentValueRef RangeTest MethodAnalysis TimePerformed AtPathologist SbwfxqutxKyctcqsojptndI76 Gastrointestinal Endoscopy Patient Name: Bettina Larios Procedure Date: 06/09/2013 9:13 AM Date of : 1955 Admit Type: Outpatient Age: 57 Room: A31 Procedure 10 ([id number]) Gender: Female Note Status: Finalized Attending MD: Javi Johnson MD Procedure Start: 9:40 AM Procedure End: 9:57 AM Procedure: ?Colonoscopy Indications: ?Change in bowel habits Providers: ?Javi Johnson MD Referring Physician: Medicines: ?Midazolam 1 mg IV, See the other procedure note for ?documentation of the administered medications Complications: ?No immediate complications. Estimated blood loss: None. Requesting Provider: Procedure: ?Pre-Anesthesia Assessment: ?- Prior to the procedure, a History and Physical was ?performed, and patient medications and allergies were ?reviewed. The patient is competent. The risks and ?benefits of the procedure and the sedation options and ?risks were discussed with the patient. All questions ?were answered and informed consent was obtained. ?Patient identification and proposed procedure were ?verified by the physician and the nurse in the ?procedure room. Mental Status Examination: alert and ?oriented. Airway Examination: normal oropharyngeal ?airway and neck mobility. Respiratory Examination: ?clear to auscultation. CV Examination: normal. ?Prophylactic Antibiotics: The patient does not require ?prophylactic antibiotics. Prior Anticoagulants: The ?patient has taken no previous anticoagulant or ?antiplatelet agents. ASA Grade Assessment: I - A ?normal, healthy patient. After reviewing the risks and ?benefits, the patient was deemed in satisfactory ?condition to undergo the procedure. The anesthesia plan ?was to use moderate sedation / analgesia (conscious ?sedation). Immediately prior to administration of ?medications, the patient was re-assessed for adequacy ?to receive sedatives. The heart rate, respiratory rate, ?oxygen saturations, blood pressure, adequacy of ?pulmonary ventilation, and response to care were ?monitored throughout the procedure. The physical status ?of the patient was re-assessed after the procedure. ?- Prior to the procedure, a History and Physical was ?performed, and patient medications and allergies were ?reviewed. The patient's tolerance of previous ?anesthesia was also reviewed. The risks and benefits of ?the procedure and the sedation options and risks were ?discussed with the patient. All questions were ?answered, and informed consent was obtained. Prior ?Anticoagulants: The patient has taken no previous ?anticoagulant or antiplatelet agents. ASA Grade ?Assessment: I - A normal, healthy patient. After ?reviewing the risks and benefits, the patient was ?deemed in satisfactory condition to undergo the ?procedure. ?After I obtained informed consent, the scope was passed ?under direct vision. Throughout the procedure, the ?patient's blood pressure, pulse, and oxygen saturations ?were monitored continuously. The Colonoscope was ?introduced through the anus and advanced to the ?terminal ileum, with identification of the appendiceal ?orifice and IC valve. The colonoscopy was performed ?with ease. The patient tolerated the procedure well. ?The quality of the bowel preparation was good. The ?appendiceal orifice, terminal ileum and rectum were ?photographed. Findings: ? The perianal and digital rectal examinations were normal. ? A benign appearing sessile polyp was found in the rectum. The polyp was ? 2 mm in size. The polyp was removed with a cold biopsy forceps. ? Resection and retrieval were complete. Estimated blood loss was minimal. ? The exam was otherwise without abnormality on direct and retroflexion ? views. ? The terminal ileum appeared normal. Impression: ? - One benign appearing 2 mm polyp in the rectum. ?Resected and retrieved. ?- The examination was otherwise normal on direct and ?retroflexion views. ?- The examined portion of the ileum was normal. Estimated Blood Loss: Estimated blood loss: none. Recommendation: ? - Await pathology results. ?- Repeat colonoscopy in 5-10 years for surveillance. ?- Patient has a contact number available for ?emergencies. The signs and symptoms of potential ?delayed complications were discussed with the patient. ?Return to normal activities tomorrow. Written discharge ?instructions were provided to the patient. ?- Regular diet. ?- Continue present medications. Attending Participation: ? I personally performed the entire procedure. Dr. Javi Johnson MD 06/09/2013 10:02 AM This report has been signed electronically by Javi Johnson MD Number of Addenda: 0 Note Initiated On: 06/09/2013 9:13 AMDIGESTIVE DISEASE INSTITUTEAnatomical Region LateralityModalityOtherSpecimen (Source)Anatomical Location / Laterality Collection Method / VolumeCollection TimeReceived Time06/09/2013 9:13 AM EST Narrative Authorizing ProviderResult TypeResult StatusCcf ProviderDIGESTIVE DISEASEFinal Result from Last 3 Months or Most Recently Relevant to Health Maintenance Insurance Advance Directives TypeDate RecordedPatient RepresentativeExplanationAdvance Directive(s)10/13/2013 10:12 PM Care Teams Team MemberRelationshipSpecialtyStart DateEnd Date Peter Rush DO PCP - GeneralInternal Medicine09/11/12
--- OUTSIDE RECORDS SUMMARY | 2025-03-25 10:35 | XMS_ITS | CCD ---
Author Organization [facility] Care Team Providers Care Adjunct Philosophy Faculty Name Role Phone VICTOR MANUEL, DR COBIAN [...] Provider Joseph WILSON, Felisa Gauthier Attending Unavailable Gieditis , Andrius Vhector Attending Unavailable Gieditis , Andrius Vytmicheal Attending Unavailable Gijoeyitis , Andrius Disha Attending Unavailable Allergies Allergy ClassificationReported Allergen(s)Allergy TypeDate of OnsetReaction(s) Facility (4 sources)Morphine; Translations: [MORPHINE]Drug Cscarln74-99-0949Xpm [facility] (7 sources)Morphine; Translations: [morphine]Drug Wqxxwhl79-07-1781Giszf: See Comments, Patient reported problems (finding)[facility] (3 sources)Latex; Translations: [LATEX]Drug Flnipve36-61-9819[facility] (1 source)patient allergy list reviewed by nurse or physiciaPropensity to adverse fpontgowj03-07-7965Szhrmnc:TelePharm Other Medications Current Medications MedicationDrug Class(es)DatesSig (Normalized)Sig (Original)estradiol 0.1 mg/ml vaginal cream (12 sources)EstrogenStart: 62-28-6719lhejlcpzg 0.1 mg/g Vag Crm 1 gm, Vaginal, MonFri, Refill(s) 0 Start Date: 01/06/24 Status: OrderedStart: 11-24-2023 End: 46-49-0669Xwhpf: 67-74-7396Vmrfmgmcc 0.1 MG/GM 1 gram Vaginal twice weekly for 90 days Aug, ActiveStart: 15-81-8835Cebwracrt 0.1 MG/GM 1 gram Vaginal twice weekly for 90 days Aug, ActiveComment on above:Use 1 g vaginally two times a week.estrogens, conjugated (long-term) 0.625 mg/ml vaginal cream (3 sources)EstrogenPremarin 0.625 MG/GM as directed Vaginal twice weekly for 30 days ActivePremarin 0.625 MG/GM as directed Vaginal twice weekly for 30 days Activepantoprazole 40 mg delayed release oral tablet (1 source)Proton Pump InhibitorStart: 31-87-2804fjgn 1 tablet by mouth twice dailyPantoprazole [address] Tab 40 mg = 1 tab(s), Oral, BID, Refills(s) 0 Start Date: 03/18/24 Status: Orderedpolyethylene glycol 3350 839581 mg / potassium chloride 2970 mg / sodium bicarbonate 6740 mg / sodium chloride 5860 mg / sodium sulfate 00822 mg powder for oral solution (1 source)Osmotic LaxativeStart: 09-25-2022 End: 89-15-8410jhx 3350-Electrolytes (GOLYTELY) 236-22.74-6.74 -5.86 gram suspension Indications: Polyp of colon, unspecified part of colon, unspecified type , Liver hemangioma Take 4,000 mL by mouth one time only for 1 dose. Refer to printed prep instructions from your provider. 4000 mL 0 09/25/2022 09/25/2022 ActiveComment on above:Take 4,000 mL by mouth one time only for 1 dose. Refer to printed prep instructions from your provider. Completed/Discontinued Medications MedicationDrug Class(es)DatesSig (Normalized)Sig (Original)ascorbic acid 1000 mg oral tablet (2 sources)Vitamin CStart: 97-57-4684lpyi 1 tablet by mouth once dailyAscorbic Acid (VITAMIN C) 1,000 mg tablet Indications: Mid back pain , Lumbar degenerative disc disease , Numbness and tingling in right hand , Numbness of foot , Osteoarthritis Take 1 tablet by mouth once daily. 0 02/26/2013 Active Comment on above:Take 1 tablet by mouth once daily.azithromycin 250 mg oral tablet (5 sources)Macrolide AntimicrobialStart: 07-17-2024 End: 61-06-8702Fetlxprccgay 250 mg tablet Discontinued 250 MG PO .COMPLEX 6 July 17, 2024 1:00am December 14, 2024 11:19am 2 tabs on first day followed by 1 tab on days 2-5Start: 49-67-7686Wmwlsayrdhqm 250 MG as directed Orally daily for 5 days Jul, Not-Taking/PRNBifidobacterium Infantis (2 sources)Bifidobacterium infantis (ALIGN ORAL) Take by mouth. 0 ActiveComment on above:Take by mouth.biotin 5 mg disintegrating oral tablet (2 sources)biotin 5,000 mcg ODT Take by mouth. 0 ActiveComment on above:Take by mouth.celecoxib 200 mg oral capsule (8 sources)Nonsteroidal Anti-inflammatory DrugStart: 02-22-2024 End: 07-81-7438uglp 1 capsule by mouth once daily as needed for painCelecoxib 200 mg capsule Discontinued 0 .ROUTE .COMPLEX September 01, 2024 5:19pm December 14, 2024 11:19am TAKE 1 CAPSULE ORALLY DAILY NEEDED FOR PAIN FOR 30 DAYS Start: 12-28-2023 End: 84-54-6430okxq 1 capsule by mouth once daily as needed for painCelecoxib (Celebrex) 200 mg capsule Discontinued 200 MG PO Daily as needed for pain 08 22December 28, 2023 12:00am February 22, 2024 5:56pmcholecalciferol 0.05 mg oral tablet (2 sources)Vitamin Dtake 1 tablet by mouth once dailycholecalciferol (VITAMIN D3) 50 mcg (2,000 unit) tablet Take 2,000 Units by mouth once daily. 0 Active Comment on above:Take 2,000 Units by mouth once daily.ciprofloxacin 500 mg oral tablet (6 sources)Quinolone AntimicrobialStart: 56-07-8289ugxx 1 tablet by mouth every twelve hoursCipro 500 MG 1 tablet Orally every 12 hrs for 7 day(s) Aug, Not-Taking/PRNtake 2 drop(s) into the eye(s) every four hours as needed Ciprofloxacin HCl 0.3 % 2 drops Ophthalmic every 4 hours while awake for 7 days Not-Taking/PRNtake 2 drop(s) into the eye(s) every four hoursCiprofloxacin HCl 0.3 % 2 drops Ophthalmic every 4 hours while awake for 7 days Not-Taking cranberry conc-ascorbic acid 4,200-20 mg cap (2 sources)take 2 tablets by mouth once dailycranberry conc-ascorbic acid 4,200- 20 mg cap Take 2 tablets by mouth once daily. 0 ActiveComment on above:Take 2 tablets by mouth once daily.CYANOCOBALAMIN, VITAMIN B-12, (VITAMIN B-12 ORAL) (2 sources)Start: 64-72-4018CQRXLWVKSCCVJF, VITAMIN B-12, (VITAMIN B-12 ORAL) Take by mouth once daily. 0 12/11/2016 ActiveComment on above:Take by mouth once daily.doxycycline hyclate 100 mg oral capsule (2 sources)Tetracycline-class DrugStart: 05-19-2024 End: 54-56-4090tfwq 1 capsule by mouth twice dailyDoxycycline Hyclate 100 mg capsule Discontinued 100 MG PO Twice daily 14 May 19, 2024 1:00am December 14, 2024 11:19amKRILL OIL ORAL (2 sources)take 350 mg by mouth once dailyKRILL OIL ORAL Take 350 mg by mouth once daily. 0 ActiveComment on above:Take 350 mg by mouth once daily.MEDICATION, NON-DATABASE (2 sources)MEDICATION, NON-DATABASE Collagen powder daily 0 ActiveComment on above:Collagen powder dailymeloxicam 15 mg oral tablet (5 sources)Nonsteroidal Anti-inflammatory DrugStart: 12-14-2024 End: 71-61-6558vcvl 1 tablet by mouth once dailyMeloxicam 15 mg tablet Discontinued 15 MG PO Daily December 14, 2024 12:41pm December 14, 2024 1:23pm MULTIVITAMIN/IRON/FOLIC ACID (CENTRUM WOMEN ORAL) (2 sources)Start: 00-86-0780UUKVQBJYYJUS/IRON/FOLIC ACID (CENTRUM WOMEN ORAL) Take by mouth once daily. 0 12/11/2016 ActiveComment on above:Take by mouth once daily.omeprazole 40 mg delayed release oral capsule (6 sources)Proton Pump InhibitorStart: 12-23-2023 End: 01-00-3241sool 1 capsule by mouth once dailyOmeprazole 40 mg capsule,delayed release(DR/EC) Discontinued 40 MG PO Daily December 23, 2023 12:00am December 14, 2024 11:20amStart: 81-26-3686snyw 1 capsule by mouth once dailyomeprazole (PRILOSEC) 10 mg capsule Indications: Mid back pain , Lumbar degenerative disc disease ,Numbness and tingling in right hand , Numbness of foot , Osteoarthritis Take 1 capsule by mouth once daily. 0 02/26/2013 Active Comment on above:Take 1 capsule by mouth once daily. Problems Active Problems Problem ClassificationProblemDateDocumented DateEpisodic/ChronicAbdominal hernia (1 source)Diaphragmatic hernia; Translations: [Diaphragmatic hernia without obstruction or gangrene]Onset: 17-68-0148OoztajdiLdwusxnf of urinary tract (7 sources)Personal history of urinary calculi; Translations: [History of calculus of kidney]Onset: 763152-33-0705HxyzwfzuEpuihrktdv disorders (10 sources)Gastroesophageal reflux disease; Translations: [Gastro-esophageal reflux disease without esophagitis]Onset: 084202-00-3109Zfanldb Genitourinary symptoms and ill-defined conditions (11 sources)Dysuria; Translations: [Dysuria]Onset: 37-68-4883Obhgzxcs Immunizations and screening for infectious disease (1 source)Vaccination given; Translations: [Encounter for immunization]Episodic Intestinal infection (4 sources)Salmonella gastroenteritis; Translations: [Salmonella enteritis] EpisodicJoint disorders and dislocations; trauma-related (1 source)Current tear of medial cartilage AND/OR meniscus of knee; Translations: [Other tear of medial meniscus, current injury, right knee, initial encounter]EpisodicMenopausal disorders (5 sources)Atrophic vaginitis; Translations: [Postmenopausal atrophic vaginitis] ChronicOsteoarthritis (5 sources)Inflammation of joint of foot; Translations: [Primary osteoarthritis, unspecified ankle and foot]Onset: 189339-07-9076TiwrcfmLtvmg and unspecified benign neoplasm (9 sources)Hemangioma of intra-abdominal structures; Translations: [Cavernous hemangioma of liver]Onset: 42-39-7394GwvxdabuRxxvm and unspecified benign neoplasm (2 sources)Polyp of colon; Translations: [Polyp of colon]EpisodicOther and unspecified benign neoplasm (6 sources)Hemangioma of liver; Translations: [Hemangioma of intra-abdominal structures]Onset: 53-69-3505AtczgudsPwukh and unspecified benign neoplasm (1 source)Polyp of colon; Translations: [Polyp of colon, unspecified part of colon, unspecified type]Onset: 57-89-3628YktknnwvQvswt and unspecified benign neoplasm (1 source)Hemangioma of intra-abdominal structure; Translations: [Hemangioma of intra-abdominal structures]EpisodicOther gastrointestinal disorders (4 sources)Diarrhea; Translations: [Diarrhea, unspecified]EpisodicOther non- traumatic joint disorders (1 source)Arthralgia of the lower leg; Translations: [Pain in right knee] EpisodicOther non-traumatic joint disorders (4 sources)Pain in left knee; Translations: [Left knee pain]83-41-6270Xejgirei Other non-traumatic joint disorders (3 sources)Pain in right knee; Translations: [Pain in joint, lower leg] 72-60-5858VcaxyfmrNzpnn nutritional; endocrine; and metabolic disorders (6 sources)Body mass index 30+ - obesity; Translations: [Obesity, unspecified] Onset: 312428-90-0531PsgwcgyEzdhk nutritional; endocrine; and metabolic disorders (2 sources)Obesity, unspecified; Translations: [Obesity, unspecified]Chronic Other nutritional; endocrine; and metabolic disorders (2 sources)Obese class I; Translations: [Body mass index 32.0-32.9, adult]Onset: 54-99-4134SjirfchZendi nutritional; endocrine; and metabolic disorders (4 sources)Obesity; Translations: [Obesity, unspecified]35-29-1366RrnrrqjBnnnn nutritional; endocrine; and metabolic disorders (1 source)Simple obesity ; Translations: [Other obesity due to excess calories] Onset: 21-03-0508TmejcbzNqzoe nutritional; endocrine; and metabolic disorders (2 sources)Obese class MJJ68-98-0122QskramgZxpez screening for suspected conditions (not mental disorders or infectious disease) (7 sources)Patient encounter status; Translations: [Encounter for screening for malignant neoplasm of colon]Onset: 656870-79-7607XuzivsptKemzwfpd codes; unclassified (6 sources)Menopause present; Translations: [Asymptomatic menopausal state] 30-68-2143HrfmevusTjjixswk codes; unclassified (3 sources)Asymptomatic menopausal state; Translations: [Symptomatic menopausal or female climacteric states]EpisodicResidual codes; unclassified (1 source)Procedure and treatment not carried out because of patient's decision for unspecified reasonsEpisodicSpondylosis; intervertebral disc disorders; other back problems (9 sources)Dorsalgia, unspecified; Translations: [Spinal stenosis of lumbar region]Onset: 96-85-9467DcdfcvkeWlqkcve and strains (1 source)Sprain of medial collateral ligament of knee; Translations: [Sprain of medial collateral ligament of unspecified knee, initial encounter]Episodic Unclassified (2 sources)Patient encounter luodyc11-04-3353Swpyppt tract infections (5 sources)Urinary tract infectious disease; Translations: [Urinary tract infection]Onset: 552919-46-7119Dygbtpug Past or Other Problems Problem ClassificationProblemDateDocumented DateEpisodic/ChronicAbdominal pain (2 sources)Abdominal pain; Translations: [Unspecified abdominal pain]Onset: 472903-78-6381TuqmxqddVoqpj bronchitis (1 source)Acute bronchitis; Translations: [Acute bronchitis, unspecified]Onset: 77-72-0288QhpktgojDjvnqxxs of mouth; excluding dental (1 source)Glossitis; Translations: [Glossitis]Onset: 82-96-6156OaqsriymXqcgo diseases of bladder and urethra (2 sources)Stenosis of urinary meatus; 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]Onset: 625983-17-0017FdkkjujcTwxeb diseases of kidney and ureters (2 sources)Bilateral hydronephrosis ; Translations: [Unspecified hydronephrosis] Onset: 429182-59-8686TvwudawqXikql ear and sense organ disorders (1 source)Impacted cerumen; Translations: [Impacted cerumen]Onset: 12-19-2017 Resolved: 52-96-7378IljfyxydFvnyv gastrointestinal disorders (4 sources)Diarrhea, unspecified; Translations: [DIARRHEA UNSPECIFIED]Onset: 81-49-5113GtcvjjysCxrpa upper respiratory infections (2 sources)Acute maxillary sinusitis; Translations: [Acute maxillary sinusitis, unspecified]Onset: 79-40-9269FsyykvdqDctpjh media and related conditions (1 source)Eustachian tube salpingitis; Translations: [Unspecified Eustachian salpingitis, bilateral]Onset: 64-52-9783Xkwbbgtx Results Test NameValueInterpretationReference RangeFacilityAmbulatory Visit Summaryon 58-12-4360Frdwzetate Visit SummaryAmbulatory Visit Summary BETTINA REED :1955 Visit Date:03/24/2024 Ambulatory Visit Instructions Your Care Team Attending Physician - Cristian CINTRON MD Primary Care Physician - VICTOR MANUEL CHAIREZ PETER This Is Your Medications List Contact [...] Lobectomy of lung, SALOME BSO - Total abdo yumi hysterectomy and bilateral salpingo-oophorectomy. Medications What How [...] you for choosing us for your care. [facility] Office/Clinic Noteon 21-17-8526Bkrrruw Surgery Office/Clinic NoteGeneral Surgery Office/Clinic Note Chief Complaint post operative [...] Lobectomy of lung, SALOME BSO - Total abdo yumi hysterectomy and bilateral salpingo-oophorectomy. Medications celecoxib 200 [...] Date Status SARS-CoV-2 (COVID-19) Ad26 vaccine 08/04/2020 RecordedNoWayne HospitalComment on above:Result Comment: Electronically Signed By: ABDULAZIZ WILSON, Cristian Doshi\Date and Time Signed: 03/24/24 16:23 EDTReminderson 03-04-2024 RemindersReminders From: Patti Douglas LPN To: N - Clinical; Sent: 03/04/2024 14:13:04 EDT Show up: 02/01/2034 07:00:00 EDT Subject: colonoscopy recall Due Date/Time: 03/03/2034 07:00:00 EDT Reminder/Recall Patient due for screening colonoscopy 03/03/2034.[facility] OhioCBC W Auto Differential panel (Bld)on 52-14-8046Ciwkcgvps (Bld) [#/Vol] 0.04 10*3/uLNormal<0.11Avon HospitalComment on above:Order Comment: Specimen Type: BLOOD SPECIMEN Ordering Facility: [facility] Address: [address] [place], [place] [address]Performed By: #### 49337-2 #### [facility] CLIA [id number] [address] [place] [address] [place] AMERICABasophils/100 WBC (Bld)0.7 %NormalAv HospitalComment on above:Order Comment: Specimen Type: BLOOD SPECIMEN Ordering Facility: [facility] Address: [address] [place], [place] [address]Performed By: #### [id number] #### [facility] CLIA [id number] [address] [place] [address] [place] AMERICADifferential cell count method Nom (Bld) AutoNormalAvon HospitalComment on above:Order Comment: Specimen Type: BLOOD SPECIMEN Ordering Facility: [facility] Address: [address] [place], [place] [address]Performed By: #### 02121-5 #### [facility] CLIA [id number] [address] [place] [address] [place] AMERICAEosinophils (Bld) [#/Vol]0.04 10*3/uL Normal<0.46Av HospitalComment on above:Order Comment: Specimen Type: BLOOD SPECIMEN Ordering Facility: [facility] Address: [address] [place], [place] [address]Performed By: #### 71857-9 #### [facility] CLIA [id number] [address] [place] [address] [place] AMERICAEosinophils/100 WBC (Bld)0.7 %NormalAv HospitalComment on above:Order Comment: Specimen Type: BLOOD SPECIMEN Ordering Facility: [facility] Address: [address] [place], [place] [address]Performed By: #### 23326-4 #### [facility] [place] [id number] [place] [address] [place] AMERICAErythrocyte distribution width (RBC) [Ratio]12.2 %Uaiwdk43.5-15.0Av HospitalComment on above:Order Comment: Specimen Type: BLOOD SPECIMEN Ordering Facility: [facility] Address: [address] [place], [place] [address]Performed By: #### 02474-6 #### [facility] IA [id number] [address] [place] [address] [place] AMERICAHematocrit (Bld) [Volume fraction]43.6 % Icpgdq71.0-46.0Av HospitalComment on above:Order Comment: Specimen Type: BLOOD SPECIMEN Ordering Facility: [facility] Address: [address] [place], [place] [address]Performed By: #### 54210-6 #### [facility] IA [id number] [address] [place] [address] [place] AMERICAHemoglobin (Bld) [Mass/Vol]14.4 g/dL Uzprpo54.5-15.5Avo HospitalComment on above:Order Comment: Specimen Type: BLOOD SPECIMEN Ordering Facility: [facility] Address: [address] [place], [place] [address]Performed By: #### 41214-7 #### [facility] IA [id number] [address] [place] [address] [place] AMERICAImmature granulocytes (Bld) [#/Vol] 10*3/uLNormal<0.10Avon HospitalComment on above:Order Comment: Specimen Type: BLOOD SPECIMEN Ordering Facility: [facility] Address: [address] [place], [place] [address]Performed By: #### 90980-9 #### [facility] IA [id number] [address] [place] [address] [place] AMERICAImmature granulocytes/100 WBC (Bld)0.3 % NormalAv HospitalComment on above:Order Comment: Specimen Type: BLOOD SPECIMEN Ordering Facility: [facility] Address: [address] [place], [place] [address]Performed By: #### 20016-1 #### [facility] IA [id number] [address] [place] [address] [place] AMERICALymphocytes (Bld) [#/Vol]1.48 10*3/uL Normal1.00-4.00Av HospitalComment on above:Order Comment: Specimen Type: BLOOD SPECIMEN Ordering Facility: [facility] Address: [address] [place], [place] [address]Performed By: #### 32143-4 #### [facility] IA [id number] [address] [place] [address] [place] AMERICALymphocytes/100 WBC (Bld)25.8 %NormalAv HospitalComment on above:Order Comment: Specimen Type: BLOOD SPECIMEN Ordering Facility: [facility] Address: [address] [place], [place] [address]Performed By: #### 32122-0 #### [facility] IA [id number] [address] [place] [address] [place] AMERICAMCH (RBC) [Entitic mass]30.5 pgNormal 26.0-34.0Av HospitalComment on above:Order Comment: Specimen Type: BLOOD SPECIMEN Ordering Facility: [facility] Address: [address] [place], [place] [address]Performed By: #### 71723-6 #### [facility] IA [id number] [address] [place], [place] [id number] [place], [place] [address]MCHC (RBC) [Mass/Vol]33.0 g/dLNormal 30.5-36.0Av HospitalComment on above:Order Comment: Specimen Type: BLOOD SPECIMEN Ordering Facility: [facility] Address: [address] [place], [place] [address]Performed By: #### 36271-6 #### [facility] IA [id number] [place] [address] [facility] MEDICAL CENTERMCV (RBC) [Entitic vol]92.4 fLNormal 80.0-100.0Av HospitalComment on above:Order Comment: Specimen Type: BLOOD SPECIMEN Ordering Facility: [facility] Address: [address] [place], [place] [address]Performed By: #### 05192-9 #### [facility] IA [id number] [place] [address] [place] AMERICAMonocytes (Bld) [#/Vol]0.55 10*3/uLNormal <0.87Av HospitalComment on above:Order Comment: Specimen Type: BLOOD SPECIMEN Ordering Facility: [facility] Address: [address] [place], [place] [address]Performed By: #### 47212-1 #### [facility] IA [id number] [address] [place] [address] [place] AMERICAMonocytes/100 WBC (Bld)9.6 %NormalAv HospitalComment on above:Order Comment: Specimen Type: BLOOD SPECIMEN Ordering Facility: [facility] Address: [address] [place], [place] [address]Performed By: #### 32849-7 #### [facility] IA [id number] [place] [address] [place] AMERICANeutrophils (Bld) [#/Vol]3.61 10*3/uL Normal1.45-7.50Av HospitalComment on above:Order Comment: Specimen Type: BLOOD SPECIMEN Ordering Facility: [facility] Address: [address] [place], [place] [address]Performed By: #### 72800-7 #### [facility] CLIA [id number] [address] [place] [address] [place]ICANeutrophils/100 WBC (Bld)62.9 %NormalAvon HospitalComment on above:Order Comment: Specimen Type: BLOOD SPECIMEN Ordering Facility: [facility] Address: [address] [place], [place] [address]Performed By: #### 78681-9 #### [facility] IA [id number] [address] [place] [address] [place] AMERICANucleated RBC (Bld) [#/Vol]10*3/uLNormal <0.01Av HospitalComment on above:Order Comment: Specimen Type: BLOOD SPECIMEN Ordering Facility: [facility] Address: [address] [place], [place] [address]Performed By: #### 28105-5 #### [facility] IA [id number] [address] [place] [address] [place] AMERICANucleated RBC/100 WBC (Bld) [Ratio]0.0 /100 WBCNormalAvon HospitalComment on above:Order Comment: Specimen Type: BLOOD SPECIMEN Ordering Facility: [facility] Address: [address] [place], [place] [address]Performed By: #### 05235-3 #### [facility] IA [id number] [address] [place] [address] [place] AMERICAPlatelet mean volume (Bld) [Entitic vol] 9.2 fLNormal9.0-12.7Avon HospitalComment on above:Order Comment: Specimen Type: BLOOD SPECIMEN Ordering Facility: [facility] Address: [address] [place], [place] [address]Performed By: #### 73611-0 #### [facility] IA [id number] [address] [facility] [place] [address] [facility] MEMORIAL HOSPITALPlatelets (Bld) [#/Vol]267 10*3/uLNormal 150-400Avon HospitalComment on above:Order Comment: Specimen Type: BLOOD SPECIMEN Ordering Facility: [facility] Address: [address] [place], [place] [address]Performed By: #### 08012-4 #### [facility] IA [id number] [address] [place] [address] [facility] MEMORIAL HOSPITALRB (Bld) [#/Vol]4.72 10*6/uLNormal 3.90-5.20Avon HospitalComment on above:Order Comment: Specimen Type: BLOOD SPECIMEN Ordering Facility: [facility] Address: [address] [place], [place] [address]Performed By: #### 85124-5 #### [facility] IA [id number] [address] [place], [place] [id number] [place], [place] [address]WBC (Bld) [#/Vol]5.74 10*3/uLNormal 3.70-11.00Av HospitalComment on above:Order Comment: Specimen Type: BLOOD SPECIMEN Ordering Facility: [facility] Address: [address] [place], [place] [address]Performed By: #### 29629-8 #### [facility] IA [id number] [address] [facility] [place] [address] [facility] COLUMBUSComprehensive metabolic 2000 panelon 73-60-8110Eckapza [Mass/Vol]4.6 g/dLNormal3.9-4.9Avon HospitalComment on above: Order Comment: Specimen Type: BLOOD SPECIMEN Ordering Facility: [facility] Address: [address] [place], [place] [address]Performed By: #### 24110-1 #### [facility] IA [id number] [address] [place] [address] [place] AMERICAALP [Catalytic activity/Vol]89 U/LNormal 34-123Av HospitalComment on above:Order Comment: Specimen Type: BLOOD SPECIMEN Ordering Facility: [facility] Address: [address] [place], [place] [address]Performed By: #### 95171-8 #### [facility] IA [id number] [address] [place] [address] [place] AMERICAALT [Catalytic activity/Vol]28 U/LNormal 7-38Av HospitalComment on above:Order Comment: Specimen Type: BLOOD SPECIMEN Ordering Facility: [facility] Address: [address] [place], [place] [address]Performed By: #### 60040-5 #### [facility] IA [id number] [address] [place] [address] [place] AMERICAAnion gap [Moles/Vol]9 mmol/LNormal9-18 Misenheimer HospitalComment on above:Order Comment: Specimen Type: BLOOD SPECIMEN [facility]ing Facility[facility] Address: [address] [place], [place] [address]Performed By: #### 65370-8 #### [facility] IA [id number] [address] [place] [address] [place] AMERICAAST [Catalytic activity/Vol]21 U/LNormal 13-35Av HospitalComment on above:Order Comment: Specimen Type: BLOOD SPECIMEN Ordering Facility: [facility] Address: [address] [place], [place] [address]Performed By: #### 92535-8 #### [facility] IA [id number] [address] [place] [address] [place] AMERICABilirubin [Mass/Vol]0.5 mg/dLNormal 0.2-1.3Avon HospitalComment on above:Order Comment: Specimen Type: BLOOD SPECIMEN [facility]ing Facility: [facility] Address: [address] [place], [place] [address]Performed By: #### 19187-9 #### [facility] IA [id number] [address] [place] [address] [place] AMERICACalcium [Mass/Vol]9.7 mg/dLNormal8.5-10.2 [facility]ita HospitalComment on above:Order Comment: Specimen Type: BLOOD SPECIMEN Ordering Facility[facility] Address: [address] [address]Performed By: #### 72665-2 #### [facility] CLIA [id number] [address] [place] [address] [place] AMERICAChloride [Moles/Vol]104 mmol/LNormal 97-105Av HospitalComment on above:Order Comment: Specimen Type: BLOOD SPECIMEN [facility]ing [facility] Address: [address] [place], [place] [address]Performed By: #### 52617-5 #### [facility] IA [id number] [place] [address] [place] AMERICACO2 [Moles/Vol]29 mmol/NOarxll76-18Thbu HospitalComment on above:Order Comment: Specimen Type: BLOOD SPECIMEN [facility] Address: [address] [place], [place] [address]Performed By: #### 38573-1 #### [facility] IA [id number] [address] [place] [address] [place] AMERICACreatinine [Mass/Vol]0.68 mg/dLNormal 0.58-0.96Misenheimer HospitalComment on above:Order Comment: Specimen Type: BLOOD SPECIMEN [facility] Address: [address] [place], [place] [address]Performed By: #### 36517-8 #### [facility] IA [id number] [address] [place] [address] [place] OF AMERICAESTIMATED GLOMERULAR FILTRATION RATE97 mL/min/1.73m???Normal>=60Av HospitalComment on above:Order Comment: Specimen Type: BLOOD SPECIMEN [facility] Address: [address] [place], [place] [address]Result Comment: Estimated Glomerular Filtration Rate (eGFR) is calculated using the 2020 CKD-EPI cre atinine equation. This equation utilizes serum creatinine, sex, and age as parameters. The creatinine assay has traceable calibration to isotope dilution- mass spectrometry. Refer to KDIGO guidelines for clinical interpretation. In patients with unstable renal function, e.g. those with acute kidney injury, the eGFR may not accurately reflect actual GFR.Performed By: #### 34631-8 #### [facility] CLIA [id number] [address] [place] [address] [place] AMERICAGlucose [Mass/Vol]98 mg/kYYnziou80-59Diri HospitalComment on above:Order Comment: Specimen Type: BLOOD SPECIMEN [facility]ing [facility] Address: [address] [place] [phone] Comment: The [place] Diabetes Association (ADA) provides guidance for cutoff [...] Standards of Medical Care in Diabetes 2016, [place] Diabetes Association. Diabetes Care. 2016.39(Suppl 1).Performed By: #### 15972-7 #### [facility] CLIA [id number] [address] [place] [address] [place] AMERICAPotassium [Moles/Vol]4.6 mmol/LNormal 3.7-5.1Avon HospitalComment on above:Order Comment: Specimen Type: BLOOD SPECIMEN Ordering Facility: [facility] Address: [place] [address]Ozhfqdjyu By: #### 12520-9 #### [facility] CLIA [id number] [address] [place] [address] [place] AMERICAProtein [Mass/Vol]7.4 g/dLNormal6.3-8.0 [facility] HospitalComment on above:Order Comment: Specimen Type: BLOOD SPECIMEN [facility] Address: [address] [address]Performed By: #### 16297-4 #### [facility] CLIA [id number] [address] [place] [address] [place] AMERICASodium [Moles/Vol]142 mmol/NHvvhpo145-025 [facility] Valley HospitalComment on above:Order Comment: Specimen Type: BLOOD SPECIMEN [facility] Address: [address] [place], [place] [address]Performed By: #### 49916-3 #### [facility] CLIA [id number] [address] [place] [address] [place] AMERICAUrea nitrogen [Mass/Vol]17 mg/dLNormal 7-21Misenheimer HospitalComment on above:Order Comment: Specimen Type: BLOOD SPECIMEN [facility] Address: [address] [place], [place] [address]Performed By: #### 05983-5 #### [facility] CLIA [id number] [address] [place] [address] [place] AMERICANo Panel Informationon 09-26-2022 [facility] CampusUS ABD RIGHT UPPER QUADRANTon 25-80-3434CG ABD RIGHT UPPER QUADRANT* * *Final Report* * * DATE OF EXAM: Sep 26 2022 1:18PM [facility] 1032 - US ABD RIGHT UPPER [...] and could represent the previously described hemangiomas. New Client Banking Services Clerk: ERIKA Transcribe Date/Time: Oct 03 2022 6:03A Dictated by : NAS DENSON MD This examination was interpreted and the report reviewed and electronically signed by: NAS DENSON MD on Oct 03 2022 6:08AM EST [id number] Institute of Michigan ABD SPLEEN -NBon 56-32-5599MK ABD SPLEEN -NB* * *Final Report* * * DATE OF [...] and could represent the previously described hemangiomas. New Client Banking Services Clerk: [facility] Transcribe Date/Time: Oct 03 2022 6:03A Dictated by : NAS DENSON MD This examination was interpreted and the report reviewed and electronically signed by: NAS DENSON MD on Oct 03 2022 6:08AM EST [id number] [facility] 25-25-7657TXGFWdctdj Visit (GASTAV) BETTINA REED ([id number]) 1955 F Date Time Provider Department 09/25/22 1:30 PM YOLANDA STAFFORD During your visit today, we recorded the following information about you: Weight Height 100.7 kg 1.676 m Yolanda Ta MD 09/25/2022 2:21 PM Signed Hepatology [facility] consult by Dr Rush for liver [...] If you do not have a responsible taxicab driver (family member or friend) with you [...] such as Imodium, Ka (more content not included)...NormalKing's Daughters [facility] Center OhioTORY PHYSICALon 09-25-2022 HISTORY PHYSICALHNO ID: [id number] Author: Yolanda Gutierrez MD Service: ? Author Type: Physician Type: HANDP Filed: 09/25/2022 2:21 PM Note Text: [facility]ita HPI consult by Dr Rush [...] Sincerely MD Yolanda Walters MD cc dr BorreroEast Liverpool City HospitalCULTURE URINEon 45-68-0081FKKNZVX URINECulture Observations: MODERATE GROWTH OF MIXED GENITAL JESUS. NO POTENTIAL PATHOGENS SEEN.NormalThe Mansfield HospitalComment on above:Performed By: #### URCX #### [facility] [address] [address] [address] Na Barbosa RANDOM W/MICROSCOPICon 34-72-0065SDBXAZWUTBFW SEENNormalNONE SEENThe Mansfield HospitalComment on above:Performed By: #### UAMIC #### [facility] [address] [address] [address] Na GonzalesBilirubin Ql (U)NegativeNormalNEGATIVEPromedica Toledo Hospital Comment on above:Performed By: #### UAMIC #### [facility] [address] [place] [address] Dr. Na GonzalesCASTNONE SEENNormalNONE SEENPromedica Toledo HospitalComment on above:Performed By: #### UAMIC #### [facility] [address] [address] [address] Na Hauserarity (U)CLEARNormalCLEARPromedica Toledo HospitalComment on above: Performed By: #### UAMIC #### [facility] [address] [place] [address] Dr. Na Ryder (U)LT. YELLOWNormalYELLOWPromedica Toledo HospitalComment on above:Performed By: #### UAMIC #### [facility] [address] [place] [address] Dr. Na GonzalesCrystals LM Nom (Urine sed)NONE SEENNormalNONE SEENPromedica Toledo HospitalComment on above:Performed By: #### UAMIC #### [facility] [address] [place] [address] Dr. Na Guzmanpithelial cells LM Ql (Urine sed)NONE SEENNormalNONE SEEN /RARE The [facility]field HospitalComment on above:Performed By: #### UAMIC #### [facility] [address] [place] [address] Dr. Na GonzalesGlucose Ql (U)NegativeNormalNEGATIVEPromedica Toledo HospitalComment on above:Performed By: #### UAMIC #### [facility] [address] [place] [address] Dr. Na GonzalesHemoglobin Ql (U)NegativeNormalNEGATIVEPromedica Toledo Hospital Comment on above:Performed By: #### UAMIC #### [facility] [address] [place] [address] Dr. Na GonzalesKetones Ql (U)NegativeNormalNEGATIVEPromedica Toledo HospitalComment on above:Performed By: #### UAMIC #### [facility] [address] [place] [address] Dr. Na GonzalesLEUKOCYTESSMALLAbnormalNEGATIVEThe Mansfield HospitalComment on above:Performed By: #### UAMIC #### [facility] [address] [place] [address] Dr. Na GonzalesMUCOUSNONE SEENNormalNONE SEENThe [facility]field HospitalComment on above:Performed By: #### UAMIC #### [facility] [address] [place] [address] Dr. Na Kaufmantrite Ql (U)NegativeNormalNEGATIVEThe Mansfield HospitalComment on above:Performed By: #### UAMIC #### [facility] [address] [place] [address] Dr. Na GonzalespH (U)6.0 [pH]Normal5-9The Mansfield HospitalComment on above: Performed By: #### UAMIC #### [facility] [address] [place] [address] Dr. Na GonzalesRBCNONE SEENAbnormal0-2The [facility]field HospitalComment on above: Performed By: #### UAMIC #### [facility] [address] [place] [address] Dr. Na GonzalesSPEC GRAVITY1.090Ublkxw5.005-<=1.025The [facility]field HospitalComment on above:Performed By: #### UAMIC #### [facility] [address] [place] [address] Dr. Na Barbosa PROTEINNegativeNormalNEGATIVE/ TRACEThe [facility] Comment on above:Performed By: #### UAMIC #### [facility] [address] [place] [address] Dr. Na Romanbilinogen Qn (U)0.2 {Irene'U}/dLNormal0.2 - 1.0The [facility]field HospitalComment on above:Performed By: #### UAMIC #### [facility] [address] [place] [address] Dr. Na GonzalesWBC0-2AbnormalNONE SEENThe [facility]field HospitalComment on above: Performed By: #### UAMIC #### [facility] [address] [address] [address] Na Wright ABD/PELVIS WO CONon 03-68-1033SB ABD/PELVIS WO CONEXAMINATION: CT ABD/PELVIS WO CON, 04/06/2021 8:25 AM [...] Electronically authenticated by: DEMETRIS PATEL Date: 2021-04-06 18:26NoAshtabula General Hospitale Mansfield HospitalCULTURE STOOLon 79-15-9982FRVTTLD STOOLCulture Observations: SALMONELLA CALD TO EDNA FELIX LPN@1225/02/21/21/RK Culture Observations: SALMONELLA CALD TO PENNY@1230/02/21/21/RK Culture Observations: SENDING ISOLATE TO [facility] FOR SEROTYPING Isolate 1 Salmonella enterica ssp enterica Heavy growth of ORGANISM 1 Salmonella enterica ssp enterica ANTIBIOTIC M.I.C RX STATUS Ampicillin <=2 S F Ceftazidime <=1 S F Ceftriaxone <=1 S F Ciprofloxacin <=0.25 S F Levofloxacin <=0.12 S F Trimethoprim/Sulfamethoxazole <=20 S FNormalPromedica Toledo HospitalComment on above:Performed By: #### STOOLCX #### [facility] [address] [address] [address] Na GonzalesCLOSTRIDIUM DIFFICILE PCRon 02-21-2021 difficile Toxin Gene SHADI NegativeNormalNegativePromedica Toledo HospitalComment on above:Performed By: #### CDIFNAA #### [facility] [address] [address] [address] Na Gonzales Vital Signs Date TimeVital SignValuePerforming MfckipvmlYbknzbks03-47-1290 09:32-0400Body .64 cmBenjamin Ball DO Work Phone: [phone] [place], [place] [address]9-03-2025 09:32-0400 Body mass index (BMI) [Ratio]36.3 kg/t7Dzailgii Ball DO Work Phone: [phone]09-03-2025 09:32-0400 Body qnnmeo012.1 kgBenjamin Ball DO Work Phone: [phone]09-03-2025 09:32-0400 Diastolic blood vqcuxivf41 mm[Hg]Pteer Ball DO Work Phone: [phone] [place], [place] [address]9-03-2025 09:32-0400 Systolic blood oxtecxhm625 mm[Hg]Peter Ball DO Work Phone: [phone]07-22-2025 11:13-0400 Body dequoq519.64 cmBenjamin Ball DO Work Phone: [phone]07-22-2025 11:13-0400 Body mass index (BMI) [Ratio]35.8 kg/v9Ypzahwar Ball DO Work Phone: [phone]07-22-2025 11:13-0400 Body tdxeac998.75 kgBenjamechelle Ball DO Work Phone: [facility]07-22-2025 11:13-0400 Diastolic blood mm[Hg]Peter Ball DO Work Phone: [facility]07-22-2025 11:13-0400 Systolic blood vjmfycek448 mm[Hg]Peter Ball DO Work Phone: [facility]09-03-2024 15:15-0400 Blood Pressure LocationMichael NILL [phone]-GxudjOhiohealth [facility]09-03-2024 15:15-0400Diastolic blood mm[Hg]Cristian NILL 164-0650Wdfycn-JhitaOhiohealth Grove City [facility] Hospital09-03-2024 15:15-0400Heart rate76 /minMichael NILL [phone]-OyevpOhiohealth Grove City [facility] Hospital09-03-2024 15:15-0400Respiratory rate16 /minMichael NILL 175-3161Nqpmie-WqxkpOhiohealth Grove City [facility]09-03-2024 15:15-0400Systolic blood mm[Hg]Cristian NILL [phone]-IerxyOhiohealth Grove City [facility]07-30-2024 14:36-0400Body bkuayx753.64 cmTuscarawas Hospital07-30-2024 14:36-0400Body mass index (BMI) [Ratio]35.2 kg/e3HaxnwygqcTuscarawas Hospital07-30-2024 14:36-0400Body iangkr83.93 kgTuscarawas Hospital 12-23-2023 14:36-0400Diastolic blood yvkuuusu99 mm[Hg][facility]07-30-2024 14:36-0400Heart rate98 /[facility] 12-23-2023 14:36-0400Respiratory rate12 /[facility] 12-23-2023 14:36-0400Systolic blood vvevgwaj830 mm[Hg][facility]05-03-2023 13:20-0400Body .6 cmYolanda Gutierrez MD Work Phone: [facility]05-03-2023 13:20-0400Body yibdrd609.7 kgYolanda Gutierrez MD Work Phone: [facility]04-03-2023 14:30-0400Body lufbpf346.37 cmBenjamin Ball Other [employer] Other 04-03-2023 14:30-0400Body mass index (BMI) [Ratio] 36.44 kg/z7Arrsmpfd Ball Other [employer] Other 04-03-2023 14:30-0400Body uhmxws396.88 kgBenjamin Ball Other [employer] Other 04-03-2023 14:30-0400Diastolic blood zxctgnsi21 mm[Hg] Peter Ball Other [employer] Other 04-03-2023 14:30-0400Respiratory rate12 /minBenjamin Ball Other [employer] Other 04-03-2023 14:30-0400Systolic blood ritercyu095 mm[Hg] Peter Ball Other [employer] Other Encounters Encounter DateEncounter TypeCare ProviderFacilityStart: 01-26-2025 End: 10-74-5574jdlgninywvVwnigrde Ball DO Work Phone: [facility] Work Phone: Start: 01-26-2025 End: 23-62-4578Malxkfz encounter procedureRobert Serge Rizo MD-[facility] Work Phone: Start: 12-14-2024 End: 58-84-3075dlypowiqvmQfelbxcb Ball DO Work Phone: [facility] Work Phone: Start: 12-14-2024 End: 13-43-1360Jikyuca encounter procedureRobert Serge Rizo MD[facility] [place] Work Phone: Start: 11-15-2024 End: 20-88-1417muyheospnqBlmmgkj Vytautas Giedraitis MDFacility:[facility] [place] Start: 11-01-2024 End: 39-28-8645kbcbntztfgItakgcr Vytautas Giedraitis MDFacility:[facility] [place] Start: 10-11-2024 End: 64-13-7325vrjdqdxspwXlwvuvl Vytautas Giedraitis MDFacility:[facility] [place] Start: 07-12-2024 End: 72-01-1057pefooeaiauIqzrooo Vytautas Giedraitis MDFacility:[facility] [place] Start: 03-24-2024 End: 83-17-6007anrqbqstzeNebvjsx R NILLFacility: evueStart: 03-24-2024 End: 52-89-7769Sgtxkpd encounter procedureMichael R NILL 180-7049Gnlbal-Iybhq General Surgery [place] Start: 03-03-2024 End: 36-47-5175ziwvunqsdnOeyuxhf R NILLFacility:CD:[id number]: 01-27-2024 End: 81-05-4494lqomklbpveENDSIMJC BALLFacility: BellevueStart: 01-27-2024 End: 99-88-5597Vnhkqan encounter procedureMichael R NILL [phone]-Wjjhf General Surgery [place] Start: 40-38-0972jturtudlcfAwcqmvy NILLFacility:GS BellevueStart: 12-23-2023 End: 22-29-4734zqusbxvsgdLevlrojsrProMedica Flower Hospital Work Phone: Start: 12-23-2023 End: 49-43-4439Uvvkzet encounter procedureFormerly [facility] Physician GroupValleywise [facility] Work Phone: Start: 07-02-2023 End: 74-07-1777dvkhlxokqsSankvxcj Ball Other [facility] Other Start: 96-14-5827Eyowlkrkx encounterBenclaymechelle RushVALLEYWISE [facility] ClinicStart: 09-26-2022 End: 84-79-4395nvbiykqnsxHJEICBPedro Pablo GUTIERREZFacility:LDS Hospitaltart: 09-26-2022 End: 13-98-5266Ukzjxziexk hospital visit by [address] [address] Work Phone: [facility] Radiology UltrasoundComment on above: Polyp of colon, unspecified part of colon, unspecified type [K63.5]Start: 09-25-2022 End: 84-21-4202fpzwaszpmuRNZYYNPedro Pablo GUTIERREZFacility:[facility] Start: 09-25-2022 End: 21-67-4939Xtbetku encounter procedureYolanda Gutierrez MD Work Phone: GastroenterologyComment on above:Polyp of colon, unspecified part of colon, unspecified type (Primary Dx); Liver hemangiomaStart: 08-31-2022 End: 38-27-0941fqixgwoydtQzleibej Ball Other noL[facility] Other Start: 73-76-1263Wpdvturqm encounterBenlast Rush Medical ClinicStart: 08-26-2022 End: 53-43-0725jdcxhvswwpBxuhtjif Ball Other noL[facility] Other Start: 57-11-9897Mgyopft encounter procedureBedinesh Rush Medical ClinicStart: 01-11-2022 End: 87-25-0165vlmvsuhehkFV BENJAMIN BALLFacility:B0Iablg: 04-06-2021 End: 02-66-0039wqgnjyckszIFJulio César RUSHFacility:H2Yrhjv: 02-20-2021 End: 02-29-6091viifynnfpqPWJulio César RUSHFacility:G9Ylgmm: 46-17-3724Ltkav health examinationBedinesh Rush Other [place] [employer] Other Procedures DateProcedureProcedure DetailPerforming ClinicianStart: 10-09-5084Fdricnyfnqp Cristian NILL Start: 83-64-7761XyegebbshbqcvwbxeaddeazzalMlmgsaz NILL Start: 17-26-2447Ro abdominal real time w/image limited Yolanda Gutierrez MD Work Phone: Start: 97-74-4013RqxnrzmtfcqDtprao Wakim Fleming MD Work Phone: Start: 42-45-9185IjdyupkrdnbNoynwxe NILL Start: 24-13-1961FnvhcrbudpevxzytttrlmokuvcVlhjyuu NILL CholecystectomyMichael NILL CystoscopyMichael NILL Depression screeningPeter Rush Other Excision of hemangiomaMichael NILL Excision of lesion of liverMichael NILL History of operative procedure on lumbar spinal structureMichael NILL Lobectomy of lungMichael NILL Total abdominal hysterectomy with bilateral salpingo-oophorectomyMichael NILL Plan of Treatment DateCare ActivityDetailAuthorStart: 40-81-1858Zflcvabw ScreeningDiabetes ScreeningOhioHealth Marion General Hospitaltart: 36-81-8703OtkjxfkcavfZEZBREROEVMTdepfiwep Clinic Start: 91-35-0332DGEGTDHBIN CANCER SCREENINGCOLORECTAL CANCER SCREENINGOhioHealth Marion General Hospitaltart: 07-98-3366Btbps-19 Vaccine ()Covid-19 Vaccine ()[facility] Hospitaltart: 67-06-1597Ogwfskxbh vaccination Influenza Vaccine (#1)[facility] Hospitaltart: 09-25-2022 End: 30-79-1797NEM W Auto Differential panel - BloodCBC + DIFF Lab Routine Polyp of colon, unspecified part of colon, unspecified type Liver hemangiomaExpected: 09/25/2022, Expires: 11/25/2022[facility] Work Phone: Comment on above:Expected: 09/25/2022, Expires: 11/25/2022Start: 09-25-2022 End: 89-78-4765Pvxsgxxqpqyco metabolic 2000 panel - Serum or PlasmaCOMP METABOLIC PANEL Lab Routine Polyp of colon, unspecified part of colon, unspecified type Liver hemangioma Expected: 09/25/2022, Expires: 11/25/2022 [facility] Work Phone: Comment on above:Expected: 09/25/2022, Expires: 11/25/2022Start: 28-20-5250CKSMHSQ DIRECTIVE DISCUSSIONADVANCE DIRECTIVE DISCUSSIONOhioHealth Marion General Hospitaltart: 96-73-9580PRFG DENSITYBONE DENSITYOhioHealth Marion General Hospitaltart: 56-73-8517Ljof Density ScreeningBone Density ScreeningOhioHealth Marion General Hospitaltart: 56-70-2138Fufyjpcsyeid Vaccine: 65+ (1 - PCV)Pneumococcal Vaccine: 65+ (1 - PCV)[facility] Hospitaltart: 84-43-4640KNZRBPQQKHNI: 65+ (1 - PCV) PNEUMOCOCCAL: 65+ (1 - PCV)[facility] Hospitaltart: 74-65-3968SZXMHZIJNP ASSESSMENTDEPRESSION ASSESSMENTMount St. Mary Hospitalrt: 55-13-0507GNANL-19 VACCINE (2 - Booster for Roe series)COVID-19 VACCINE (2 - Booster for Roe series)[facility] Hospitaltart: 81-17-5310EJXZIRIK SCREENDIABETES SCREENOhioHealth Marion General Hospitaltart: 15-73-3979YCY Vaccine (1 - 1-dose 60+ series)RSV Vaccine (1 - 1- dose 60+ series)[facility] Hospitaltart: 43-55-4700MPVRBQCZ VACCINE (1 of 2) SHINGRIX VACCINE (1 of 2)[facility] Hospitaltart: 70-14-9525YVHSWUPDL (FIT-DNA) COLOGUARD (FIT-DNA)[facility] Hospitaltart: 10-66-3724LA COLONOGRAPHYCT COLONOGRAPHYOhioHealth Marion General Hospitaltart: 84-28-8993RZMHB OCCULT BLOODFECAL OCCULT BLOODOhioHealth Marion General Hospitaltart: 19-80-1344Mwmti 1996 panel - Serum or PlasmaLipid ScreeningOhioHealth Marion General Hospitaltart: 75-01-8738DLUFI SCREENLIPID SCREENOhioHealth Marion General Hospitaltart: 86-29-6601AQGRIIYMMMLAKZQVSFPFZTTRDCBqvfwrlmp ClinicStart: 32-61-1449NqbhspnjpuvIdpzisudb ClinicStart: 85-71-2686Ezptt microalbumin profile [facility] Hospitaltart: 25-36-1366LCDBZQJMT C SCREENINGHEPATITIS C SCREENING [facility] Hospitaltart: 53-79-0364BLO SCREENINGHIV SCREENINGSum[facility] End: 76-33-4377UZZTKIMFZGF DIAGNOSTICCOLONOSCOPY DIAGNOSTIC Endoscopy Routine Polyp of colon, unspecified part of colon, unspecified type Liver hemangioma 1 Occurrences starting 09/25/2022 until 09/26/2023[facility] Work Phone: Comment on above:1 Occurrences starting 09/25/2022 until 09/26/2023 End: 33-17-4105GG ABD RIGHT UPPER QUADRANTUS ABD RIGHT UPPER QUADRANT Radiology Routine Polyp of colon, unspecified part of colon, unspecified type Liver hemangioma 1 Occurrences starting 09/25/2022 until 10/25/2023[facility] Work Phone: Comment on above:1 Occurrences starting 09/25/2022 until 10/25/2023XR Knee - bilateral 4 [facility] AdministrationXR Knee - right 4 ViewsTuscarawas HospitalXR Pelvis 1 or 2 Views [facility] Immunizations Immunization DateImmunizationNotesCare IxyyuiljUhxllrjf69-24-8274pqjaetfra, high dose seasonal, preservative-freePeter Rush Other [facility] Other [id number] virus vaccine, split virus (incl. purified surface antigen)Peter Rush Other [employer] Other 11-733019-48-1490fqdxmwfkh virus vaccine, unspecified formulationUltra 2 Work Phone: [facility]10-30-2021influenza virus vaccine, split virus (incl. purified surface antigen)Peter Rush Other [employer] Other 10-836134-92-7670rxlbkpjub virus vaccine, unspecified formulationTuscarawas Hospital03-12-2021COVID-19 Vaccine Roe - Documentation Purposes OnlyPeter Rush Other [facility]10-01-2017tetanus and diphtheria toxoids, adsorbed, preservative free, for adult use (5 Lf of tetanus toxoid and 2 Lf of diphtheria toxoid)Pteer Rush Other [facility]10-21-2016tetanus and diphtheria toxoids, adsorbed, preservative free, for adult use (5 Lf of tetanus toxoid and 2 Lf of diphtheria toxoid)Peter Rush Other [facility] Payers DatePayer CategoryPayerPolicy [id number] [id number] 2023Medicare [id number] 2.16.840.1.270862.3.57[id number] 2.16.840.1.597419.3.57[id number] 2.16.840.1.422144.3.57[id number] 2.16.840.1.381974.3.57[id number] 2.16.840.1.542157.3.57[id number] 2.16.840.1.977967.3.57[id number] 2.16.840.1.259601.3.57[id number] 2..840.1.185960.3.57[id number] 2.16.840.1.639663.3.579.2.196Private Health InsuranceAet Insurance Co [id number] Social History DateTypeDetailFacilityStart: 09-02-2018 End: 16-21-3633[facility] 08-24-2013 End: 22-46-1997Ifeozsx smoking status NHISNever smoked tobaccoSumma Health Akron Campus Start: 06-16-4782Tofcxvr use and exposureSmokeless tobacco non-userOhioHealth Marion General Hospitaltart: 44-54-4611Tzptuop intakeCurrent drinker of alcohol (finding) [facility] Hospitaltart: 88-99-5184Xanzaef Commentocc.[facility] Hospitaltart: 46-68-7771Lvs Assigned At BirthFemalGreene Memorial Hospitaltart: 09-02-2018 End: 04-29-4789Mltbsoa of Social functionSumma Health Akron CampusNational Score (1-100), lower number is lower uwvb76Rdrvbu-Pjxau General Surgery BellevueStart: 83-94-7225Puwooi identityIdentifies as female gender (finding)[facility] Start: 71-62-6311Gbuctrr smoking status NHISEx-smoker (finding)[facility] HospitalexFemale (finding)[facility] Medical Equipment Procedure CodeEquipment CodeEquipment Original TextEquipment IdentifierDates Lzn-Lp-I-Kind Implant - Crushed Cancellous [id number]: 07-19-2016 Comment on above:Description: MQO-CV-W-KIND IMPLANT - Crushed Cancellous 15cc. Brought into room at 0840. Handed sterily to field by Donovan Christensen RN to Abigail Hayes BI CONSULTANT at 1015. Also handled by Moe Ulrich MD, and Abigail Carey MD. No preparation required.Plate Lcp Long T Stainless Steel 61mm Bone 2 Hole Variable Angle Fusion - [id number]: 77-45-6441Naaky Lcp 2.7mm T8 Stainless Steel 22mm Bone Variable Angle Lock Self Tap - [id number] Start: 00-61-2248Evqlzv Surfix 3.5mm Stainless Steel Orthopedic Lock Midfoot - [id number]: 07-19-2016 Functional Status IsflKhwmzejaogCyvpvqIumjtocb53-01-1908Mjknevelqn StatusN/AFisher-[facility] Ukadyruq84-57-2801Bqoumdmswq StatusN/AFisher-[facility] [place] Clinical Notes 08-26-2022 to 12-14-2024 Note Date & ZykiUngbUacephhv51-08-6065 Evaluation note* Diagnosis Onset Date Resolution Status Admit Date Primary osteoarthritis of knees, berry mehta acuteJuly 2024 10:40am [facility] Work Phone: 1(701) 570-790009-03-2024 NoteGeneral Surgery Office/Clinic Note Chief Complaint consultation [...] Date Status SARS-CoV-2 (COVID-19) Ad26 vaccine 08/04/2020 RecordedPeoples HospitalComment on above:Result Comment: Electronically Signed By: ABDULAZIZ WILSON, Cristian Doshi\Date and Time Signed: 01/27/24 16:18 [id number] Instructions* Patient Instructions* Yolanda Gutierrez MD - [...] If you do not have a responsible taxicab driver (family member or friend) with you [...] If you do not have a responsible taxicab driver (family member or friend) withyou to take you home, your exam cannot be done with sedation and will be cancelled. Please bring a list of all of your current medications, including any Upfo-uow-Kzebeqe medications with you. Medications If you take [...] your exam. 2 04/2019 documented in this encounterSumma Health Akron Campus05-03-2023 History and physical note * Yolanda Gutierrez MD - 09/25/2022 2:03 PM EDT Hepatology [facility] consult by Dr Rush for liver [...] MD cc dr Rush documented in this encounterSumma Health Akron Campus04-08-2023 Evaluation note* Encounter Date Diagnosis Assessment Notes Treatment Notes Treatment Clinical Notes Aug, Menopause (ICD-10 - Z78.0) [employer] Other 04-03-2023 Evaluation note* Encounter Date Diagnosis [...] and exercise. Reviewed age-appropriate preventive testing recommended. Aug,avernous hemangioma of liver (ICD-10 - D18.03)Hx of resection of enlarged hemangiomas. Pain in RUQ, patient suspects hemangiomas as a possible cause. Scheduling appt w/ surgery Aug,Menopause (ICD-10 - Z78.0)Healthy diet, Ca and Vit D supplements. Exercise Aug,Obesity (BMI 30-39.9) (ICD-10 - E66.9)This patient has been instructed on a low-fat, high-fiber diet. They are instructed to reduce calori es, portion sizes and snacks. It is recommended that they exercise for 30 minutes, 3-5 times weekly. Aug,trophic vaginitis (ICD-10 - N95.2)Premarin crm twice weekly Aug,Screening mammography declined (ICD-10 - Z53.20)SBE monthly and notify office of abnormal findings. Recommend mammogram yearly, patient aware of possible missed dx and consequences of not detecting early cancer [facility] [employer] Other Evaluation + Plan note No data available for this section [facility] [place] Evaluation note* Diagnosis Polyp of colon, unspecified part of colon, unspecified type- Primary Liver hemangioma Hemangioma of intra-abdominal structures documented in this encounter [facility] CampusEvalutidalhealth [facility] note* Diagnosis Polyp of colon, unspecified part of colon, unspecified type Liver hemangioma Hemangioma of intra-abdominal structures documented in this encounter [facility] noteNo InformationNortSpecial Care Hospital [employer] Other Evaluation note* Diagnosis Onset Date Resolution Status Cavernous hemangioma of liver acuteKnee pain, bilateralacuteMenopauseacuteObesityacuteScreening for colon canceracuteMedicare annual wellness visit, initialnoneactiveScreening mammogram for breast cancernoneactive [facility] Work Phone: Evaluation noteNo assessment information available [facility] Work Phone: History general Narrative - Reported* Type Description Date Medical History frequent UTI Medical HistoryhysterectomyMedical HistoryAtrophic vaginitisMedical History History of nephrolithiasisMedical HistorySalmonella gastroenteritisMedical HistoryDiarrheaMedical HistoryCavernous hemangioma of liverSurgical History hysterectomySurgical Historybilateral foot surgeriesSurgical HistoryCYSTOSCOPY 2013Surgical DmfnlcwKXOMAPTBJW8506Ihkuueepjnmtofw Historyhysterectomy Hospitalization Historyc section, childbirth [employer] Other Hospital Discharge instructions No data available for this section [facility] [place] Progress note No data available for this section [facility] Reason for referral (narrative)* Outpatient Procedure (Routine) - AuthorizedSpecialtyDiagnoses / ProceduresReferred By Contact [facility] [place] Diagnoses Polyp of colon, unspecified part of colon, unspecified type Liver hemangioma Procedures COLONOSCOPY DIAGNOSTIC COLONOSCOPY FLX DX W/COLLJ SPEC WHEN PFRMD Yolanda Stafford MD [address] [place] [address] Digestive Disease [facility] [place] [address] Referral IDStatusReasonStart DateExpiration DateVisits RequestedVisits [id number] Auto-Generated Referral * Diagnostic Procedure Only (Routine) - AuthorizedSpecialtyDiagnoses / ProceduresReferred By ContactReferred To [facility] Diagnoses Polyp of colon, unspecified part of colon, unspecified type Liver hemangioma Procedures US ABD RIGHT UPPER QUADRANT US ABDOMINAL REAL TIME W/IMAGE LIMITED Yolanda Stafford MD [address] [place] [address] [facility] Referral IDStatusReasonStart DateExpiration DateVisits RequestedVisits [id number] Auto-Generated Referral [facility] for referral (narrative)* Diagnostic Procedure Only (Routine) - ClosedSpecialtyDiagnoses / ProceduresReferred By ContactReferred To [facility] Diagnoses Polyp of colon, unspecified part of colon, unspecified type Liver hemangioma Procedures US ABD RIGHT UPPER QUADRANT US ABDOMINAL REAL TIME W/IMAGE LIMITED Yoalnda Stafford MD [address] [place] [address] [facility] [place] [address] Referral IDStatusReasonStmorgan DateExpiration DateVisits RequestedVisits [id number] Auto-Generated Referral / [facility] for referral (narrative)No reason for referral information availableSelect [facility] Work Phone: [facility] Narrative* Diagnostic Procedure Only (Routine) - ClosedSpecialtyDiagnoses / ProceduresReferred By ContactReferred To [facility] Diagnoses Polyp of colon, unspecified part of colon, unspecified type Liver hemangioma Procedures US ABD RIGHT UPPER QUADRANT US ABDOMINAL REAL TIME W/IMAGE LIMITED Yolanda Stafford MD [address] [place] [address] [facility] [place] [address] Referral IDStatusReasonStart DateExpiration DateVisits RequestedVisits [id number] Auto-Generated Referral [facility] Summary Purpose Family History Relationship Condition Age at Onset Recorded Date/T rakan brother Asthma Unknown fatherMalignant neoplasmUnknownFamily history of lung cancerUnknownmotherFamily history of mental disorderUnknown Advance Directives TypeDate RecordedPatient RepresentativeExplanationAdvance Directive(s)10/13/2013 10:12 PM Advance Directive Response Recorded Date/ [...] section and content) DATE CREATED AUTHOR 01/17/2022 [facility] DATE CREATED AUTHOR AUTHOR'S ORGANIZ ATION 09/27/2022 [facility] DATE CREATED AUTHOR AUTHOR'S ORGANIZ ATION 10/04/2022 [facility] DATE CREATED AUTHOR AUTHOR'S ORGANIZ ATION 03/26/2024 [facility] DATE CREATED AUTHOR AUTHOR'S ORGANIZ ATION 12/25/2024 [facility] REASON FOR VISIT (unrecogniz ed section and content) ReasonCommentsNew Patient Source Comments (unrecognize d section and content) In the event this informatio n is protected by the Federal Confidentiality of Alcohol and Drug Abuse Patient Records regulations: The Federal rules restrict any use of the information to criminally investigate or prosecute any alcohol or drug abuse patient.[facility] CampusIn the event this information is protected by the Federal Confidentiality of Alcohol and Drug Abuse Patient Records regulations: The Federal rules restrict any use of the information to criminally investigate or prosecute any alcohol or drug abuse patient.[facility] Care Teams (unrecognized sec tion and content) Team MemberRelationshipSpecialtyStart DateEnd Date Peter Rush DO PCP - [facility]09/11/12Team MemberRelationshipSpecialtyStart Date End Date Peter Rush DO PCP - [facility]09/11/12 Team Status: Active Member Role Status Dates Peter Rush DO Primary Care Provider Active Team Status: Inactive Member Role Status Dates Peter Rush DO Primary Care Provide r, Attending Provider Active Start: December 23, 2023 End: December 23, 2023 Team Status: Inactive Member Role Status Dates Peter Rush DO Primary Care Provider Active Start: December 14, 2024 End: December 14, 2024Robnelson Valentine II, MDAttending ProviderActiveStart: December 14, 2024 End: December 14, 2024 Team Status: Inactive Member Role Status Dates Peter Victor Manuel DO Primary Care Provider Active Start: January 26, 2025 End: January 26, 2025Robnelson Valentine II, MDAttending ProviderActiveStart: January 26, 2025 End: January 26, 2025 [...] BE BASED ON THE PRIMARY CLINICAL RECORDS. [facility] [employer] [facility]. provides no warranty or guarantee of the accuracy or completeness of information in this document.
--- NOTE | 2025-03-25 10:38 | XR_ITS ---
The [address] [address] Patient Name: RADHA REED MRN: [id number] date: 1955 Sex: F Assigned Patient Location: [facility] Current Patient Location: [facility] Accession/Order Number: [id number] Exam Date: 03/25/2025 10:45 Report Date: 03/25/2025 11:21 At the request of: RATNA CHOU DPSallie Procedure: XR foot LT min 3V LEFT FOOT - 3 views CLINICAL DATA: Follow-up after surgery COMPARISON: 02/22/2025 and 06/15/2024 AP, lateral and oblique views were obtained in a cast which somewhat obscures fine bone detail. There are dorsal skin mary in the tarsal metatarsal region. There is redemonstration of an orthopedic mary bridging the second tarsometatarsal joint and 2screws which appear to extend through the third tarsometatarsal joint. There is no obvious acute fracture or dislocation. A plantar calcaneal spur is seen. There are no significant soft tissue abnormalities. XR/XR foot LT min 3V IMPRESSION: SIMILAR POSTOPERATIVE CHANGES IN THE SECOND/THIRD TARSAL METATARSAL REGION. Impression dictated by: Latha Roblero M.D. 03/25/2025 11:21 AM Dictation Location: [place] [address] Electronically authenticated by: [id number] Y Date: 03/25/2025 11:21
== END 2025-03-25 10:30 | disposition home or self-care (01) ==
PROVIDERS: PCP Internal Medicine; Visit Provider Podiatrist Foot & Ankle Surgery
DX: M79.672 Pain in left foot (principal); Z98.890 Other specified postprocedural states
CPT/HCPCS: 73630

== ENCOUNTER 2025-04-19 10:09 | Outpatient (OUT) | payer MEDICARE, OTHER, SELFPAY ==
--- NOTE | 2025-04-19 10:16 | XR_ITS ---
The [address] [address] Patient Name: RADHA REED MRN: [id number] date: 1955 Sex: F Assigned Patient Location: [facility] Current Patient Location: [facility] Accession/Order Number: [id number] Exam Date: 04/19/2025 10:20 Report Date: 04/19/2025 11:20 At the request of: RATNA CHOU DPSallie Procedure: XR foot LT min 3V LEFT FOOT - 3 views CLINICAL DATA: Mid foot arthritis and surgery follow-up COMPARISON: 03/25/2025 AP, lateral and oblique views were obtained. There is osteopenia. Two screws and a dorsal orthopedic staple bridge the second and third tarsometatarsal joints. The hardware is unchanged from the comparison. There is no developing fracture or dislocation. A small plantar calcaneal spur is seen. There are no significant soft tissue abnormalities. XR/XR foot LT min 3V IMPRESSION: STABLE POSTOPERATIVE CHANGES. NO ACUTE BONY FINDINGS. Impression dictated by: Latha Roblero M.D. 04/19/2025 11:20 AM Dictation Location: [place] [address] Electronically authenticated by: [id number] Y Date: 04/19/2025 11:20
--- OUTSIDE RECORDS SUMMARY | 2025-04-19 10:16 | XMS_ITS | CCD ---
Author Organization [facility] CliniSyca Care Team Providers Care Electrician Rectifier Maintenance Name Role Phone VICTOR MANUEL, DR COBIAN [...] PETER E Primary Care Unavailable JUSTINA GUTIERREZ, YOLADNA Referring Unavailabl e BALL, PETER E Primary [...] Andrius Vytmicheal Attending Unavailable Gijoeyitis , Andrius Vhector Attending Unavailable Allergies Allergy ClassificationReported Allergen(s)Allergy TypeDate of OnsetReaction(s) Facility (4 sources)Morphine; Translations: [MORPHINE]Drug Amkxcwv27-45-8194[facility] Rep[facility] (7 sources)Morphine; Translations: [morphine]Drug Wnfnoyj73-09-2973Dmtbs: See Comments, Patient reported problems (finding)[facility] (3 sources)Latex; Translations: [LATEX]Drug Ybtcodw49-92-3400PuylFofrxbbnh Clinic (1 source)patient allergy list reviewed by nurse or physiciaPropensity to adverse orzdjysko45-78-0959Qfofjxm:SenseData Other Medications Current Medications MedicationDrug Class(es)DatesSig (Normalized)Sig (Original)estradiol 0.1 mg/ml vaginal cream (12 sources)EstrogenStart: 62-50-6509tzjkcnprh 0.1 mg/g Vag Crm 1 gm, Vaginal, MonFri, Refill(s) 0 Start Date: 01/06/24 Status: OrderedStart: 11-24-2023 End: 74-76-4199Csxpl: 00-81-6423Tdrlgfrts 0.1 MG/GM 1 gram Vaginal twice weekly for 90 days Aug, ActiveStart: 19-92-8860Lwqaohrqv 0.1 MG/GM 1 gram Vaginal twice weekly for 90 days Aug, ActiveComment on above:Use 1 g vaginally two times a week.estrogens, conjugated (mcfp) 0.625 mg/ml vaginal cream (3 sources)EstrogenPremarin 0.625 MG/GM as directed Vaginal twice weekly for 30 days ActivePremarin 0.625 MG/GM as directed Vaginal twice weekly for 30 days Activepantoprazole 40 mg delayed release oral tablet (1 source)Proton Pump InhibitorStart: 59-24-8493jrjn 1 tablet by mouth twice dailyPantoprazole [address] Tab 40 mg = 1 tab(s), Oral, BID, Refills(s) 0 Start Date: 03/18/24 Status: Orderedpolyethylene glycol 3350 449507 mg / potassium chloride 2970 mg / sodium bicarbonate 6740 mg / sodium chloride 5860 mg / sodium sulfate 52762 mg powder for oral solution (1 source)Osmotic LaxativeStart: 09-25-2022 End: 36-58-3640bjj 3350-Electrolytes (GOLYTELY) 236-22.74-6.74 -5.86 gram suspension Indications: [...] 1000 mg oral tablet (2 sources)Vitamin CStart: 95-67-9019hccq 1 tablet by mouth once dailyAscorbic Acid (VITAMIN C) 1,000 mg tablet Indications: Mid back pain , Lumbar degenerative disc disease , Numbness and tingling in right hand , Numbness of foot , Osteoarthritis Take 1 tablet by mouth once daily. 0 02/26/2013 Active Comment on above:Take 1 tablet by mouth once daily.azithromycin 250 mg oral tablet (5 sources)Macrolide AntimicrobialStart: 07-17-2024 End: 54-02-1893Awqslwqiikui 250 mg tablet Discontinued 250 MG PO .COMPLEX 6 July 17, 2024 1:00am December 14, 2024 11:19am 2 tabs on first day followed by 1 tab on days 2-5Start: 82-45-4184Gmuzlgdbgibz 250 MG as directed Orally daily for 5 days Jul, Not-Taking/PRNBifidobacterium Infantis (2 sources)Bifidobacterium infantis (ALIGN ORAL) Take by mouth. 0 ActiveComment on above:Take by mouth.biotin 5 mg disintegrating oral tablet (2 sources)biotin 5,000 mcg ODT Take by mouth. 0 ActiveComment on above:Take by mouth.celecoxib 200 mg oral capsule (8 sources)Nonsteroidal Anti-inflammatory DrugStart: 02-22-2024 End: 47-35-0809fcml 1 capsule by mouth once daily as needed for painCelecoxib 200 mg capsule Discontinued 0 .ROUTE .COMPLEX September 01, 2024 5:19pm December 14, 2024 11:19am TAKE 1 CAPSULE ORALLY DAILY NEEDED FOR PAIN FOR 30 DAYS Start: 12-28-2023 End: 83-21-2258vtxe 1 capsule by mouth once daily as [...] 500 mg oral tablet (6 sources)Quinolone AntimicrobialStart: 64-47-3360jeho 1 tablet by mouth every twelve hoursCipro [...] VITAMIN B-12, (VITAMIN B-12 ORAL) (2 sources)Start: 05-52-2911DPACSFEWZJCGUA, VITAMIN B-12, (VITAMIN B-12 ORAL) Take by mouth once daily. 0 12/11/2016 ActiveComment on above:Take by mouth once daily.doxycycline hyclate 100 mg oral capsule (2 sources)Tetracycline-class DrugStart: 05-19-2024 End: 10-90-9289hjfq 1 capsule by mouth twice dailyDoxycycline Hyclate [...] tablet (5 sources)Nonsteroidal Anti-inflammatory DrugStart: 12-14-2024 End: 94-79-8852cglu 1 tablet by mouth once dailyMeloxicam 15 mg tablet Discontinued 15 MG PO Daily December 14, 2024 12:41pm December 14, 2024 1:23pm MULTIVITAMIN/IRON/FOLIC ACID (CENTRUM WOMEN ORAL) (2 sources)Start: 22-54-1048IQVSKDOJXSZD/IRON/FOLIC ACID (CENTRUM WOMEN ORAL) Take by mouth once daily. 0 12/11/2016 ActiveComment on above:Take by mouth once daily.omeprazole 40 mg delayed release oral capsule (6 sources)Proton Pump InhibitorStart: 12-23-2023 End: 94-98-8966fftd 1 capsule by mouth once dailyOmeprazole 40 mg capsule,delayed release(DR/EC) Discontinued 40 MG PO Daily December 23, 2023 12:00am December 14, 2024 11:20amStart: 84-65-1255jzch 1 capsule by mouth once dailyomeprazole (PRILOSEC) [...] Translations: [Diaphragmatic hernia without obstruction or gangrene]Onset: 72-71-1127HfdzvygjLrvbcsfi of urinary tract (7 sources)Personal history of urinary calculi; Translations: [History of calculus of kidney]Onset: 713825-06-4327ZxlyddfvOzzignrjer disorders (10 sources)Gastroesophageal reflux disease; Translations: [Gastro-esophageal reflux disease without esophagitis]Onset: 589681-68-8718Rlfabrc Genitourinary symptoms and ill-defined conditions (11 sources)Dysuria; Translations: [Dysuria]Onset: 14-72-3508Vbddkpfm Immunizations and screening for infectious disease (1 [...] Translations: [Primary osteoarthritis, unspecified ankle and foot]Onset: 870589-30-2366HmkphibSzfdl and unspecified benign neoplasm (9 sources)Hemangioma of intra-abdominal structures; Translations: [Cavernous hemangioma of liver]Onset: 15-25-6858IpwuemtoEwffn and unspecified benign neoplasm (2 sources)Polyp of colon; Translations: [Polyp of colon]EpisodicOther and unspecified benign neoplasm (6 sources)Hemangioma of liver; Translations: [Hemangioma of intra-abdominal structures]Onset: 57-33-6578QtnvqvqiMmbzp and unspecified benign neoplasm (1 source)Polyp of colon; Translations: [Polyp of colon, unspecified part of colon, unspecified type]Onset: 05-78-0140IpqcyndsLwklv and unspecified benign neoplasm (1 source)Hemangioma of intra-abdominal structure; Translations: [Hemangioma of intra-abdominal structures]EpisodicOther gastrointestinal disorders (4 sources)Diarrhea; Translations: [Diarrhea, unspecified]EpisodicOther non- traumatic joint disorders (1 source)Arthralgia of the lower leg; Translations: [Pain in right knee] EpisodicOther non-traumatic joint disorders (4 sources)Pain in left knee; Translations: [Left knee pain]62-72-4460Gchhdtaz Other non-traumatic joint disorders (3 sources)Pain in right knee; Translations: [Pain in joint, lower leg] 85-43-4757GylxiwedGmeai nutritional; endocrine; and metabolic disorders (6 sources)Body mass index 30+ - obesity; Translations: [Obesity, unspecified] Onset: 013437-86-9648WuzbwegLyruh nutritional; endocrine; and metabolic disorders (2 sources)Obesity, unspecified; Translations: [Obesity, unspecified]Chronic Other nutritional; endocrine; and metabolic disorders (2 sources)Obese class I; Translations: [Body mass index 32.0-32.9, adult]Onset: 57-67-8146QhmaqbtScvoy nutritional; endocrine; and metabolic disorders (4 sources)Obesity; Translations: [Obesity, unspecified]37-70-8272WfrrcqqClypd nutritional; endocrine; and metabolic disorders (1 source)Simple obesity ; Translations: [Other obesity due to excess calories] Onset: 43-92-6385OcvpkxcOpwff nutritional; endocrine; and metabolic disorders (2 sources)Obese class GRV43-95-4267MqptptuPgmwm screening for suspected conditions (not mental disorders or infectious disease) (7 sources)Patient encounter status; Translations: [Encounter for screening for malignant neoplasm of colon]Onset: 750465-95-1556QbjgvpxqXclzhrbb codes; unclassified (6 sources)Menopause present; Translations: [Asymptomatic menopausal state] 88-41-6042ZrqqkenwOtfjgtlu codes; unclassified (3 sources)Asymptomatic menopausal state; Translations: [Symptomatic menopausal or female climacteric states]EpisodicResidual codes; unclassified (1 source)Procedure and treatment not carried out because of patient's decision for unspecified reasonsEpisodicSpondylosis; intervertebral disc disorders; other back problems (9 sources)Dorsalgia, unspecified; Translations: [Spinal stenosis of lumbar region]Onset: 01-32-8301NmrdkwrdNmmdelq and strains (1 source)Sprain of medial collateral ligament of knee; Translations: [Sprain of medial collateral ligament of unspecified knee, initial encounter]Episodic Unclassified (2 sources)Patient encounter -15-5888Csfghnb tract infections (5 sources)Urinary tract infectious disease; Translations: [Urinary tract infection]Onset: 071787-23-0434Yqwqnuto Past or Other Problems Problem ClassificationProblemDateDocumented DateEpisodic/ChronicAbdominal pain (2 sources)Abdominal pain; Translations: [Unspecified abdominal pain]Onset: 691334-22-0102GzcqioppJvgmw bronchitis (1 source)Acute bronchitis; Translations: [Acute bronchitis, unspecified]Onset: 39-51-3915YjcrtxqbTigryrxm of mouth; excluding dental (1 source)Glossitis; Translations: [Glossitis]Onset: 99-32-3492SlnckeodCybux diseases of bladder and urethra (2 sources)Stenosis of urinary meatus; 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]Onset: 532084-27-7658EgatctanOzwwj diseases of kidney and ureters (2 sources)Bilateral hydronephrosis ; Translations: [Unspecified hydronephrosis] Onset: 842798-22-8470HlksfjofOmhqq ear and sense organ disorders (1 source)Impacted cerumen; Translations: [Impacted cerumen]Onset: 12-19-2017 Resolved: 01-64-4866SyjjxlbiDphaa gastrointestinal disorders (4 sources)Diarrhea, unspecified; Translations: [DIARRHEA UNSPECIFIED]Onset: 81-55-2173AcaqjvimKqzfh upper respiratory infections (2 sources)Acute maxillary sinusitis; Translations: [Acute maxillary sinusitis, unspecified]Onset: 94-32-5325KemrobcoQczuwt media and related conditions (1 source)Eustachian tube salpingitis; Translations: [Unspecified Eustachian salpingitis, bilateral]Onset: 35-60-4206Plwrheta Results Test NameValueInterpretationReference RangeFacilityAmbulatory Visit Summaryon 69-56-6333Gdtypinjrr Visit SummaryAmbulatory Visit Summary BETTINA REED :1955 [...] you for choosing us for your care. [facility] HospitalGeneral [facility] Office/Clinic Noteon 36-70-3346Yilwifv Surgery Office/Clinic NoteGeneral Surgery Office/Clinic Note Chief [...] Date Status SARS-CoV-2 (COVID-19) Ad26 vaccine 08/04/2020 RecordedNoCleveland Clinic Lutheran HospitalComment on above:Result Comment: Electronically Signed By: ABDULAZIZ WILSON, Cristian Doshi\Date and Time Signed: 03/24/24 16:23 EDTReminderson 03-04-2024 RemindersReminders From: Patti Douglas LPN To: N - Clinical; Sent: 03/04/2024 14:13:04 EDT Show up: 02/01/2034 07:00:00 EDT Subject: colonoscopy recall Due Date/Time: 03/03/2034 07:00:00 EDT Reminder/Recall Patient due for screening colonoscopy 03/03/2034.[facility] HospitalCBC W Auto Differential panel (Bld)on 76-63-9707Acrffmxac (Bld) [#/Vol] 0.04 10*3/uLNormal<0.11Avon HospitalComment on above:Order Comment: Specimen Type: BLOOD SPECIMEN Ordering Facility: [facility] Address: [address] [place], [place] [address]Performed By: #### 43482-7 #### [facility] CLIA [id number] [address] [place] [address] [place] AMERICABasophils/100 WBC (Bld)0.7 %NormalAv HospitalComment on above:Order Comment: Specimen Type: BLOOD SPECIMEN Ordering Facility: [facility] Address: [address] [place], [place] [address]Performed By: #### 96963-0 #### [facility] CLIA [id number] [address] [place] [address] [place] AMERICADifferential cell count method Nom (Bld) AutoNormalAvon HospitalComment on above:Order Comment: Specimen Type: BLOOD SPECIMEN Ordering Facility: [facility] Address: [address] [place], [place] [address]Performed By: #### 85617-1 #### [facility] CLIA [id number] [address] [place] [address] [place] AMERICAEosinophils (Bld) [#/Vol]0.04 10*3/uL Normal<0.46Av HospitalComment on above:Order Comment: Specimen Type: BLOOD SPECIMEN Ordering Facility: [facility] Address: [address] [place], [place] [address]Performed By: #### 03189-4 #### [facility] CLIA [id number] [address] [place] [address] [place] AMERICAEosinophils/100 WBC (Bld)0.7 %NormalAv HospitalComment on above:Order Comment: Specimen Type: BLOOD SPECIMEN Ordering Facility: [facility] Address: [address] [place], [place] [address]Performed By: #### 38046-1 #### [facility] [place] [id number] [place] [address] [place] AMERICAErythrocyte distribution width (RBC) [Ratio]12.2 %Jowaqt91.5-15.0Av HospitalComment on above:Order Comment: Specimen Type: BLOOD SPECIMEN Ordering Facility: [facility] Address: [address] [place], [place] [address]Performed By: #### 03829-4 #### [facility] [place] [id number] [address] [place] [address] [place] AMERICAHematocrit (Bld) [Volume fraction]43.6 % Enzxaa98.0-46.0Av HospitalComment on above:Order Comment: Specimen Type: BLOOD SPECIMEN Ordering Facility: [facility] Address: [address] [place], [place] [address]Performed By: #### 17071-9 #### [facility] IA [id number] [address] [place] [address] [place] AMERICAHemoglobin (Bld) [Mass/Vol]14.4 g/dL Zccbgg22.5-15.5Avo HospitalComment on above:Order Comment: Specimen Type: BLOOD SPECIMEN Ordering Facility: [facility] Address: [address] [place], [place] [address]Performed By: #### 05523-3 #### [facility] IA [id number] [address] [place] [address] [place] AMERICAImmature granulocytes (Bld) [#/Vol] 10*3/uLNormal<0.10Avon HospitalComment on above:Order Comment: Specimen Type: BLOOD SPECIMEN Ordering Facility: [facility] Address: [address] [place], [place] [address]Performed By: #### 32911-4 #### [facility] IA [id number] [address] [place] [address] [place] AMERICAImmature granulocytes/100 WBC (Bld)0.3 % NormalAv HospitalComment on above:Order Comment: Specimen Type: BLOOD SPECIMEN Ordering Facility: [facility] Address: [address] [place], [place] [address]Performed By: #### 34177-7 #### [facility] IA [id number] [address] [place] [address] [place] AMERICALymphocytes (Bld) [#/Vol]1.48 10*3/uL Normal1.00-4.00Av HospitalComment on above:Order Comment: Specimen Type: BLOOD SPECIMEN Ordering Facility: [facility] Address: [address] [place], [place] [address]Performed By: #### 24216-1 #### [facility] IA [id number] [address] [place] [address] [place] AMERICALymphocytes/100 WBC (Bld)25.8 %NormalAv HospitalComment on above:Order Comment: Specimen Type: BLOOD SPECIMEN Ordering Facility: [facility] Address: [address] [place], [place] [address]Performed By: #### 03489-2 #### [facility] IA [id number] [address] [place] [address] [place] AMERICAMCH (RBC) [Entitic mass]30.5 pgNormal 26.0-34.0Av HospitalComment on above:Order Comment: Specimen Type: BLOOD SPECIMEN Ordering Facility: [facility] Address: [address] [place], [place] [address]Performed By: #### 30860-8 #### [facility] IA [id number] [address] [place], [place] [id number] [place], [place] [address]MCHC (RBC) [Mass/Vol]33.0 g/dLNormal 30.5-36.0Av HospitalComment on above:Order Comment: Specimen Type: BLOOD SPECIMEN Ordering Facility: [facility] Address: [address] [place], [place] [address]Performed By: #### 09763-3 #### [facility] IA [id number] [place] [address] [place] [facility]CU MEDICAL CENTERMCV (RBC) [Entitic vol]92.4 fLNormal 80.0-100.0Av HospitalComment on above:Order Comment: Specimen Type: BLOOD SPECIMEN Ordering Facility: [facility] Address: [address] [place], [place] [address]Performed By: #### 59481-1 #### [facility] IA [id number] [place] [address] [place] AMERICAMonocytes (Bld) [#/Vol]0.55 10*3/uLNormal <0.87Av HospitalComment on above:Order Comment: Specimen Type: BLOOD SPECIMEN Ordering Facility: [facility] Address: [address] [place], [place] [address]Performed By: #### 16131-1 #### [facility] IA [id number] [address] [place] [address] [place] AMERICAMonocytes/100 WBC (Bld)9.6 %NormalAv HospitalComment on above:Order Comment: Specimen Type: BLOOD SPECIMEN Ordering Facility: [facility] Address: [address] [place], [place] [address]Performed By: #### 77061-1 #### [facility] IA [id number] [place] [address] [place] AMERICANeutrophils (Bld) [#/Vol]3.61 10*3/uL Normal1.45-7.50Av HospitalComment on above:Order Comment: Specimen Type: BLOOD SPECIMEN Ordering Facility: [facility] Address: [address] [place], [place] [address]Performed By: #### 41131-0 #### [facility] CLIA [id number] [address] [place] [address] [place] AMERICANeutrophils/100 WBC (Bld)62.9 %NormalAvon HospitalComment on above:Order Comment: Specimen Type: BLOOD SPECIMEN Ordering Facility: [facility] Address: [address] [place], [place] [address]Performed By: #### 79275-1 #### [facility] IA [id number] [address] [place] [address] [place] AMERICANucleated RBC (Bld) [#/Vol]10*3/uLNormal <0.01Av HospitalComment on above:Order Comment: Specimen Type: BLOOD SPECIMEN Ordering Facility: [facility] Address: [address] [place], [place] [address]Performed By: #### 67185-7 #### [facility] IA [id number] [address] [place] [address] [place] AMERICANucleated RBC/100 WBC (Bld) [Ratio]0.0 /100 WBCNormalAvon HospitalComment on above:Order Comment: Specimen Type: BLOOD SPECIMEN Ordering Facility: [facility] Address: [address] [place], [place] [address]Performed By: #### 05868-1 #### [facility] IA [id number] [address] [place] [address] [place] AMERICAPlatelet mean volume (Bld) [Entitic vol] 9.2 fLNormal9.0-12.7Avon HospitalComment on above:Order Comment: Specimen Type: BLOOD SPECIMEN Ordering Facility: [facility] Address: [address] [place], [place] [address]Performed By: #### 70863-8 #### [facility] IA [id number] [address] [facility] [place] [address] [facility]IAL HOSPITALPlatelets (Bld) [#/Vol]267 10*3/uLNormal 150-400Avon HospitalComment on above:Order Comment: Specimen Type: BLOOD SPECIMEN Ordering Facility: [facility] Address: [address] [place], [place] [address]Performed By: #### 25855-3 #### [facility] IA [id number] [address] [place] [address] [facility]IAL HOSPITALRB (Bld) [#/Vol]4.72 10*6/uLNormal 3.90-5.20Avon HospitalComment on above:Order Comment: Specimen Type: BLOOD SPECIMEN Ordering Facility: [facility] Address: [address] [place], [place] [address]Performed By: #### 98885-7 #### [facility] IA [id number] [address] [place], [place] [address] [place], [place] [address]WBC (Bld) [#/Vol]5.74 10*3/uLNormal 3.70-11.00Av HospitalComment on above:Order Comment: Specimen Type: BLOOD SPECIMEN Ordering Facility: [facility] Address: [address] [place], [place] [address]Performed By: #### 14526-6 #### [facility] IA [id number] [address] [facility] [address] [facility] HOSPITALComprehensive metabolic 2000 panelon 47-32-4597Xkyslza [Mass/Vol]4.6 g/dLNormal3.9-4.9Avon HospitalComment on above: Order Comment: Specimen Type: BLOOD SPECIMEN Ordering Facility: [facility] Address: [address] [place], [place] [address]Performed By: #### 98660-2 #### [facility] IA [id number] [address] [place] [address] [place] AMERICAALP [Catalytic activity/Vol]89 U/LNormal 34-123Av HospitalComment on above:Order Comment: Specimen Type: BLOOD SPECIMEN Ordering Facility: [facility] Address: [address] [place], [place] [address]Performed By: #### 34659-1 #### [facility] IA [id number] [address] [place] [address] [place] AMERICAALT [Catalytic activity/Vol]28 U/LNormal 7-38Av HospitalComment on above:Order Comment: Specimen Type: BLOOD SPECIMEN Ordering Facility: [facility] Address: [address] [place], [place] [address]Performed By: #### 01765-3 #### [facility] IA [id number] [address] [place] [address] [place] AMERICAAnion gap [Moles/Vol]9 mmol/LNormal9-18 Ericson HospitalComment on above:Order Comment: Specimen Type: BLOOD SPECIMEN Ordering Facility: [facility] Address: [address] [place], [place] [address]Performed By: #### 49906-5 #### [facility] IA [id number] [address] [place] [address] [place] AMERICAAST [Catalytic activity/Vol]21 U/LNormal 13-35Av HospitalComment on above:Order Comment: Specimen Type: BLOOD SPECIMEN Ordering Facility: [facility] Address: [address] [place], [place] [address]Performed By: #### 29493-0 #### [facility] IA [id number] [address] [place] [address] [place] AMERICABilirubin [Mass/Vol]0.5 mg/dLNormal 0.2-1.3Avon HospitalComment on above:Order Comment: Specimen Type: BLOOD SPECIMEN Ordering Facility: [facility] Address: [address] [place], [place] [address]Performed By: #### 67651-6 #### [facility] IA [id number] [address] [place] [address] [place] AMERICACalcium [Mass/Vol]9.7 mg/dLNormal8.5-10.2 Ericson HospitalComment on above:Order Comment: Specimen Type: BLOOD SPECIMEN Ordering Facility: [facility] Address: [address] [place] [address]Performed By: #### 50707-8 #### [facility] CLIA [id number] [address] [place] [address] [place] AMERICAChloride [Moles/Vol]104 mmol/LNormal 97-105Av HospitalComment on above:Order Comment: Specimen Type: BLOOD SPECIMEN Ordering Facility: [facility] Address: [address] [place], [place] [address]Performed By: #### 20636-8 #### [facility] IA [id number] [place] [address] [place] AMERICACO2 [Moles/Vol]29 mmol/SXhjaym48-34Mdct HospitalComment on above:Order Comment: Specimen Type: BLOOD SPECIMEN Ordering Facility: [facility] Address: [address] [place], [place] [address]Performed By: #### 25186-2 #### [facility] IA [id number] [address] [place] [address] [place] AMERICACreatinine [Mass/Vol]0.68 mg/dLNormal 0.58-0.96Ericson HospitalComment on above:Order Comment: Specimen Type: BLOOD SPECIMEN Ordering Facility: [facility] Address: [address] [place], [place] [address]Performed By: #### 05975-0 #### [facility] [place] [id number] [address] [place] [address] [place] STATES OF AMERICAESTIMATED GLOMERULAR FILTRATION RATE97 mL/min/1.73m???Normal>=60Av HospitalComment on above:Order Comment: Specimen Type: BLOOD SPECIMEN Ordering Facility: [facility] Address: [address] [place], [place] [address]Result Comment: Estimated Glomerular Filtration Rate (eGFR) is [...] not accurately reflect actual GFR.Performed By: #### 89059-1 #### [facility] CLIA [id number] [address] [place] [address] [place] OF AMERICAGlucose [Mass/Vol]98 mg/xASizmuy82-67Qzwy HospitalComment on above:Order Comment: Specimen Type: BLOOD SPECIMEN Ordering Facility: [facility] Address: [address] [place] [phone] Comment: The [place] Diabetes Association (ADA) provides guidance for cutoff [...] Standards of Medical Care in Diabetes 2016, [place] Diabetes Association. Diabetes Care. 2016.39(Suppl 1).Performed By: #### 67556-4 #### [facility] CLIA [id number] [address] [place] [address] [place] AMERICAPotassium [Moles/Vol]4.6 mmol/LNormal 3.7-5.1Avon HospitalComment on above:Order Comment: Specimen Type: BLOOD SPECIMEN Ordering Facility: [facility] Address: [place] [address]Ejwhrdmve By: #### [id number] #### [facility] CLIA [id number] [address] [place] [address] [place] AMERICAProtein [Mass/Vol]7.4 g/dLNormal6.3-8.0 [facility] HospitalComment on above:Order Comment: Specimen Type: BLOOD SPECIMEN Ordering Facility: [facility] Address: [address] [place] [address]Performed By: #### 63767-2 #### [facility] CLIA [id number] [address] [place] [address] [place] AMERICASodium [Moles/Vol]142 mmol/EZbpuan595-726 [facility] HospitalComment on above:Order Comment: Specimen Type: BLOOD SPECIMEN Ordering Facility: [facility] Address: [address] [place], [place] [address]Performed By: #### 61884-2 #### [facility] CLIA [id number] [address] [place] [address] [place] AMERICAUrea nitrogen [Mass/Vol]17 mg/dLNormal 7-21Ericson HospitalComment on above:Order Comment: Specimen Type: BLOOD SPECIMEN Ordering Facility: [facility] Address: [address] [place], [place] [address]Performed By: #### 62202-5 #### [facility] CLIA [id number] [address] [place] [address] [place] AMERICANo Panel Informationon 09-26-2022 [facility]US ABD RIGHT UPPER QUADRANTon [id number] ABD RIGHT UPPER QUADRANT* * *Final Report* * * DATE OF EXAM: Sep 26 2022 1:18PM [facility] 1032 - US ABD RIGHT UPPER [...] and could represent the previously described hemangiomas. Education Administrative Assistant: ERIKA Transcribe Date/Time: Oct 03 2022 6:03A Dictated by : NAS DENSON MD This examination was interpreted and the report reviewed and electronically signed by: NAS DENSON MD on Oct 03 2022 6:08AM EST [id number] Memorial Hospital ABD SPLEEN -NBon [id number] ABD SPLEEN -NB* * *Final Report* * [...] and could represent the previously described hemangiomas. Education Administrative Assistant: [facility] Transcribe Date/Time: Oct 03 2022 6:03A Dictated by : NAS DENSON MD This examination was interpreted and the report reviewed and electronically signed by: NAS DENSON MD on Oct 03 2022 6:08AM EST [id number] Primary [facility] [id number] Visit (GASTAV) BETTINA REED ([id number]) 1955 F Date Time Provider Department 09/25/22 1:30 PM YOLANDA STAFFORD During your visit today, we recorded the following information about you: Weight Height 100.7 kg 1.676 m Yolanda Ta MD 09/25/2022 2:21 PM Signed Hepatology [facility] consult by Dr Rush for liver lesions [...] If you do not have a responsible intermodal owner operator truck driver (family member or friend) with [...] such as Imodium, Ka (more content not included)...NormalSouthview Medical CenterTORY PHYSICALon 09-25-2022 HISTORY PHYSICALHNO ID: [id number] Author: Yolanda Gutierrez MD Service: ? Author Type: Physician Type: HANDP Filed: 09/25/2022 2:21 PM Note Text: Hepatology [facility] HPI consult by Dr Rush for [...] Sincerely MD Yolanda Walters MD cc dr BorreroMain Campus Medical CenterCULTURE URINEon 22-60-3240LMPWSTC URINECulture Observations: MODERATE GROWTH OF MIXED GENITAL JESUS. NO POTENTIAL PATHOGENS SEEN.NormalThe [facility] Hospit[facility] Beachwood Medical CenterComment on above:Performed By: #### URCX #### [facility] [address] [address] [address] Na Barbosa RANDOM W/MICROSCOPICon 14-84-6706RJTXEQQEWZZG SEENNormalNONE SEENThe [facility] Medical CenterComment on above:Performed By: #### UAMIC #### [facility] [address] [address] [address] Na GonzalesBilirubin Ql (U)NegativeNormalNEGATIVESouthern [facility] Comment on above:Performed By: #### UAMIC #### [facility] [address] [place] [address] Dr. Na GonzalesCASTNONE SEENNormalNONE SEENSouthern Ohio Medical CenterComment on above:Performed By: #### UAMIC #### [facility] [address] [address] [address] Na Hauserarity (U)CLEARNormalCLEARSouthern Ohio Medical CenterComment on above: Performed By: #### UAMIC #### [facility] [address] [place] [address] Dr. Na Ryder (U)LT. YELLOWNormalYELLOWSouthern Ohio Medical CenterComment on above:Performed By: #### UAMIC #### [facility] [address] [place] [address] Dr. Na GonzalesCrystals LM Nom (Urine sed)NONE SEENNormalNONE SEENSouthern Ohio Medical CenterComment on above:Performed By: #### UAMIC #### [facility] [address] [place] [address] Dr. Na Guzmanpithelial cells LM Ql (Urine sed)NONE SEENNormalNONE SEEN /RARE The [facility] Medical CenterComment on above:Performed By: #### UAMIC #### [facility] [address] [place] [address] Dr. Na GonzalesGlucose Ql (U)NegativeNormalNEGATIVESouthern Ohio Medical CenterComment on above:Performed By: #### UAMIC #### [facility] [address] [place] [address] Dr. Na GonzalesHemoglobin Ql (U)NegativeNormalNEGATIVESouthern [facility] Medical [facility] Comment on above:Performed By: #### UAMIC #### [facility] [address] [place] [address] Dr. Na GonzalesKetones Ql (U)NegativeNormalNEGATIVESouthern Ohio Medical CenterComment on above:Performed By: #### UAMIC #### [facility] [address] [place] [address] Dr. Na GonzalesLEUKOCYTESSMALLAbnormalNEGATIVEThe [facility] Medical CenterComment on above:Performed By: #### UAMIC #### [facility] [address] [place] [address] Dr. Na GonzalesMUCOUSNONE SEENNormalNONE SEENThe [facility] Medical CenterComment on above:Performed By: #### UAMIC #### [facility] [address] [place] [address] Dr. Na Kaufmantrite Ql (U)NegativeNormalNEGATIVEThe [facility] Medical CenterComment on above:Performed By: #### UAMIC #### [facility] [address] [place] [address] Dr. Na GonzalespH (U)6.0 [pH]Normal5-9The [facility] Medical CenterComment on above: Performed By: #### UAMIC #### [facility] [address] [place] [address] Dr. Na GonzalesRBCNONE SEENAbnormal0-2The [facility] Medical CenterComment on above: Performed By: #### UAMIC #### [facility] [address] [place] [address] Dr. Na GonzalesSPEC GRAVITY1.084Tohtam9.005-<=1.025The [facility] Medical CenterComment on above:Performed By: #### UAMIC #### [facility] [address] [place] [address] Dr. Na Barbosa PROTEINNegativeNormalNEGATIVE/ TRACEThe [facility] Comment on above:Performed By: #### UAMIC #### [facility] [address] [place] [address] Dr. Na Romanbilinogen Qn (U)0.2 {Irene'U}/dLNormal0.2 - 1.0The [facility] Medical CenterComment on above:Performed By: #### UAMIC #### [facility] [address] [place] [address] Dr. Na GonzalesWBC0-2AbnormalNONE SEENThe [facility] Medical CenterComment on above: Performed By: #### UAMIC #### [facility] [address] [address] [address] Na Wright ABD/PELVIS WO CONon 07-39-5265CL ABD/PELVIS WO CONEXAMINATION: CT ABD/PELVIS WO CON, [...] Electronically authenticated by: DEMETRIS PATEL Date: 2021-04-06 18:26No[address] Anne Hospitale [facility] Medical CenterCULTURE STOOLon 47-59-8882RBXNJYP STOOLCulture Observations: SALMONELLA CALD TO EDNA FELIX LPN@1225/02/21/21/RK Culture Observations: SALMONELLA CALD TO [facility] [place] [facility]@1230/02/21/21/RK Culture Observations: SENDING ISOLATE TO [facility] [place] FOR SEROTYPING Isolate 1 Salmonella enterica ssp enterica Heavy growth of ORGANISM 1 Salmonella enterica ssp enterica ANTIBIOTIC M.I.C RX STATUS Ampicillin <=2 S F Ceftazidime <=1 S F Ceftriaxone <=1 S F Ciprofloxacin <=0.25 S F Levofloxacin <=0.12 S F Trimethoprim/Sulfamethoxazole <=20 S FNormalSouthern Ohio Medical CenterComment on above:Performed By: #### STOOLCX #### [facility] [address] [address] [address] Na GonzalesCLOSTRIDIUM DIFFICILE PCRon 02-21-2021 difficile Toxin Gene SHADI NegativeNormalNegativeSouthern Ohio Medical CenterComment on above:Performed By: #### CDIFNAA #### [facility] [address] [address] [address] Na Gonzales Vital Signs Date TimeVital SignValuePerforming IahnaurxhEuagwygq22-94-4325 09:32-0400Body twbwej622.64 cmBenjamin Ball DO Work Phone: [phone] [place], [place] [address]309-03-2025 09:32-0400 Body mass index (BMI) [Ratio]36.3 kg/q3Ssibnpkt Ball DO Work Phone: [phone]09-03-2025 09:32-0400 Body adqbwj792.1 kgBenjamin Ball DO Work Phone: [phone] [address]09-03-2025 09:32-0400 Diastolic blood sksytjht24 mm[Hg]Peter Ball DO Work Phone: [phone] [place], [place] [address]309-03-2025 09:32-0400 Systolic blood hzvuvqwk776 mm[Hg]Peter Ball DO Work Phone: [phone]07-22-2025 11:13-0400 Body ztgfeg728.64 cmBenjamin Ball DO Work Phone: [phone]07-22-2025 11:13-0400 Body mass index (BMI) [Ratio]35.8 kg/k5Sxzphgwy Ball DO Work Phone: [phone]07-22-2025 11:13-0400 Body cyryru896.75 kgBenjamechelle Ball DO Work Phone: [facility]07-22-2025 11:13-0400 Diastolic blood kmyuohvx10 mm[Hg]Peter Ball DO Work Phone: [facility]07-22-2025 11:13-0400 Systolic blood jnyjreid644 mm[Hg]Peter Ball DO Work Phone: [facility]09-03-2024 15:15-0400 Blood Pressure LocationMichael NILL [phone]-RmqvxMercer [facility]09-03-2024 15:15-0400Diastolic blood vxqqinju85 mm[Hg]Cristian NILL 134-1181Ezjipt-WxdcwMercer County Community Hospital09-03-2024 15:15-0400Heart rate76 /minMichael NILL [phone]-OxlrqMercer County Community Hospital09-03-2024 15:15-0400Respiratory rate16 /minMichael NILL 129-5855Knbsnm-UopjsMercer County Community Hospital09-03-2024 15:15-0400Systolic blood emffhjno857 mm[Hg]Cristian NILL [phone]-XulekMercer County Community Hospital07-30-2024 14:36-0400Body itjupg065.64 cmPaulding County Hospital07-30-2024 14:36-0400Body mass index (BMI) [Ratio]35.2 kg/d4UxiywheebPaulding County Hospital07-30-2024 14:36-0400Body akaewn74.93 kgPaulding County Hospital 12-23-2023 14:36-0400Diastolic blood lmrgpqeo84 mm[Hg][facility]07-30-2024 14:36-0400Heart rate98 /[facility] 12-23-2023 14:36-0400Respiratory rate12 /[facility] 12-23-2023 14:36-0400Systolic blood dmhsufey888 mm[Hg][facility]05-03-2023 13:20-0400Body uxslvj747.6 cmYolanda Gutierrez MD Work Phone: [facility]05-03-2023 13:20-0400Body lobozf605.7 kgYolanda Gutierrez MD Work Phone: [facility]04-03-2023 14:30-0400Body gyfqvx369.37 cmBenjamin Ball Other [employer] Other 04-03-2023 14:30-0400Body mass index (BMI) [Ratio] 36.44 kg/c1Ldhuwttt Ball Other [employer] Other 04-03-2023 14:30-0400Body mckuat318.88 kgBenjamin Ball Other [employer] Other 04-03-2023 14:30-0400Diastolic blood xpkcayxv35 mm[Hg] Peter Ball Other [employer] Other 04-03-2023 14:30-0400Respiratory rate12 /minBenjamin Ball Other [employer] Other 04-03-2023 14:30-0400Systolic blood ubkdcpso152 mm[Hg] Peter Ball Other [employer] Other Encounters Encounter DateEncounter TypeCare ProviderFacilityStart: 01-26-2025 End: 84-46-0356spygvdibqnRjcvdkgh Ball DO Work Phone: [facility] Work Phone: Start: 01-26-2025 End: 11-43-6544Dczxnfs encounter procedureRobert Serge Rizo MD-[facility] Work Phone: Start: 12-14-2024 End: 29-45-5494xcrpmpngdhGsqeimwm Ball DO Work Phone: [facility] Work Phone: Start: 12-14-2024 End: 10-22-3775Lwhjblu encounter procedureRobert Serge Rizo MDNEWYORK-[facility] Work Phone: Start: 11-15-2024 End: 54-67-2914wvwetkwaahYmgurav Vytautas Giedraitis MDFacility:PM [place] Start: 11-01-2024 End: 98-55-3034avnzvgfuuoVirprkr Vytautas Giedraitis MDFacility:PM [place] Start: 10-11-2024 End: 13-44-9456lisvzfusqnKzdpedf Vytautas Giedraitis MDFacility:PM [place] Start: 07-12-2024 End: 51-24-6465bdzxfqupaeAhwgrll Vytautas Giedraitis MDFacility:PM [place] Start: 03-24-2024 End: 78-01-3980zwphszycpdUkwdgnp R NILLFacility: evueStart: 03-24-2024 End: 53-93-0335Rusmwdp encounter procedureMichael R NILL [phone]-Qkziv [facility] [place] Start: 03-03-2024 End: 45-08-1526atmgtkhkugYvkabyp R NILLFacility:CD:[id number]: 01-27-2024 End: 40-85-0794vweqbuxjiaGTBRECJH BALLFacility: BellevueStart: 01-27-2024 End: 37-64-5566Phxyrxb encounter procedureMichael R NILL [phone]-Vrhku General Surgery [place] Start: 17-35-0396puyllsulbyFjikyoo NILLFacility:GS BellevueStart: 12-23-2023 End: 30-07-5977kkddcdgyemKptnmndldGrant Hospital Work Phone: Start: 12-23-2023 End: 69-69-4137Tcxsgly encounter procedureNorthern Regional Hospital Physician GroupCo[facility] Work Phone: Start: 07-02-2023 End: 42-13-8594offforsjdtGuyluipm Ball Other [employer]Mont[employer] Other Start: 50-78-9880Tcfeyllpl encounterBenclaymechelle RushENCOMPASS [facility] Medical ClinicStart: 09-26-2022 End: 22-11-4642cdokkumoioIMMATRPedro Pablo GUTIERREZFacility:[facility] Hospitaltart: 09-26-2022 End: 41-83-7054Ouhqbyoukp hospital visit by [address] [address] Work Phone: [facility] Radiology UltrasoundComment on above: Polyp of colon, unspecified part of colon, unspecified type [K63.5]Start: 09-25-2022 End: 62-77-6090vacyncoudfPIVYTEPedro Pablo GUTIERREZFacility:[facility] Start: 09-25-2022 End: 26-55-5702Wxnbixd encounter procedureYolanda Gutierrez MD Work Phone: GastroenterologyComment on above:Polyp of colon, unspecified part of colon, unspecified type (Primary Dx); Liver hemangiomaStart: 08-31-2022 End: 89-36-9334hpuchfkiubGwuzganx Ball Other [employer]Mont[employer] Other Start: 77-28-4111Yseehdojn encounterBenlast Rush Medical ClinicStart: 08-26-2022 End: 39-39-0981nrflwxabyjDyclhzos Ball Other [employer]Mont[employer] Other Start: 04-75-9228Cnoiznx encounter procedureBedinesh Rush Medical ClinicStart: 01-11-2022 End: 70-53-2311wpprhmnwuuLO BENJAMIN BALLFacility:J0Hvwkk: 04-06-2021 End: 01-07-9165djhgsrogemZPJulio César RUSHFacility:W8Phguu: 02-20-2021 End: 01-44-7751syzwcdakvvJLJulio César RUSHFacility:E5Gqdsw: 61-30-0819Mfpqt health examinationBedinesh Rush Other [place] [employer] Other Procedures DateProcedureProcedure DetailPerforming ClinicianStart: 67-31-1432Xdjdaforpqd Cristian NILL Start: 93-11-8889XpwvlhsvyxekdvvukjzbvpargkEhxafvx NILL Start: 89-47-4734Ez abdominal real time w/image limited Yolanda Gutierrez MD Work Phone: Start: 62-26-4199PayczykiuotUbbqzb Wakim Fleming MD Work Phone: Start: 00-84-2516ViurcpkgurtHpalcfd NILL Start: 28-59-2115AyjvukfmsdgqoruusqxcixgzzlDhfndxq NILL CholecystectomyMichael NILL CystoscopyMichael NILL Depression screeningPeter Rush Other Excision of hemangiomaMichael NILL Excision of lesion of liverMichael NILL History of operative procedure on lumbar spinal structureMichael NILL Lobectomy of lungMichael NILL Total abdominal hysterectomy with bilateral salpingo-oophorectomyMichael NILL Plan of Treatment DateCare ActivityDetailAuthorStart: 56-20-7905Wcsaektu ScreeningDiabetes ScreeningVeterans Health Administrationtart: 62-61-1384PtjebyvhyohZBCENOTMJQOTkyzvixhd Clinic Start: 26-66-4744OKCLERHLHW CANCER SCREENINGCOLORECTAL CANCER SCREENINGVeterans Health Administrationtart: 77-22-5084Yisah-19 Vaccine ()Covid-19 Vaccine ()[facility] Administrationtart: 04-74-6279Eeaqynbth vaccination Influenza Vaccine (#1)[facility] Administrationtart: 09-25-2022 End: 16-89-1310FVK W Auto Differential panel - BloodCBC + DIFF Lab Routine Polyp of colon, unspecified part of colon, unspecified type Liver hemangiomaExpected: 09/25/2022, Expires: 11/25/2022[facility] Work Phone: Comment on above:Expected: 09/25/2022, Expires: 11/25/2022Start: 09-25-2022 End: 90-18-6321Xraqfhwqjlkun metabolic 2000 panel - Serum or PlasmaCOMP METABOLIC PANEL Lab Routine Polyp of colon, unspecified part of colon, unspecified type Liver hemangioma Expected: 09/25/2022, Expires: 11/25/2022 [facility] Work Phone: Comment on above:Expected: 09/25/2022, Expires: 11/25/2022Start: 46-53-8078FHKDRMU DIRECTIVE DISCUSSIONADVANCE DIRECTIVE DISCUSSIONVeterans Health Administrationtart: 90-80-5945AISL DENSITYBONE DENSITYVeterans Health Administrationtart: 48-58-0278Vokp Density ScreeningBone Density ScreeningVeterans Health Administrationtart: 07-93-1353Encneranxeoo Vaccine: 65+ (1 - PCV)Pneumococcal Vaccine: 65+ (1 - PCV)[facility] Administrationtart: 22-84-2708BRUGSFVWOUKD: 65+ (1 - PCV) PNEUMOCOCCAL: 65+ (1 - PCV)[facility] Administrationtart: 18-35-5633VHNHPFWEGM ASSESSMENTDEPRESSION ASSESSMENTOhioHealth Hardin Memorial Hospitalrt: 02-76-1105NUMLH-19 VACCINE (2 - Booster for Roe series)COVID-19 VACCINE (2 - Booster for Roe series)[facility] Administrationtart: 47-35-6928RKBXIZFK SCREENDIABETES SCREENVeterans Health Administrationtart: 39-66-4574TWQ Vaccine (1 - 1-dose 60+ series)RSV Vaccine (1 - 1- dose 60+ series)[facility] Administrationtart: 29-87-1441QKNNJNQH VACCINE (1 of 2) SHINGRIX VACCINE (1 of 2)[facility] Administrationtart: 47-72-8997MKHGQVBWE (FIT-DNA) COLOGUARD (FIT-DNA)[facility] Administrationtart: 08-25-2724TT COLONOGRAPHYCT COLONOGRAPHYVeterans Health Administrationtart: 16-98-0687OBWWH OCCULT BLOODFECAL OCCULT BLOODVeterans Health Administrationtart: 84-97-7524Gkelb 1996 panel - Serum or PlasmaLipid ScreeningVeterans Health Administrationtart: 10-00-1466GGXJQ SCREENLIPID SCREENVeterans Health Administrationtart: 95-54-7846KNFRBWUAXVBPZGUJAPPAVYLAPEOkttlmqib ClinicStart: 08-51-9185EniuudcdhuqWlaffcdyd ClinicStart: 63-57-9267Afsjr microalbumin profile [facility] Administrationtart: 90-07-4938ZBWBDLURV C SCREENINGHEPATITIS C SCREENING [facility] Administrationtart: 07-82-9671XEK SCREENINGHIV SCREENINGPremier Health End: 00-98-3523JZOPPBUDAWO DIAGNOSTICCOLONOSCOPY DIAGNOSTIC Endoscopy Routine Polyp of colon, unspecified part of colon, unspecified type Liver hemangioma 1 Occurrences starting 09/25/2022 until 09/26/2023[facility] Work Phone: Comment on above:1 Occurrences starting 09/25/2022 until 09/26/2023 End: 36-35-4258NG ABD RIGHT UPPER QUADRANTUS ABD RIGHT UPPER QUADRANT Radiology Routine Polyp of colon, unspecified part of colon, unspecified type Liver hemangioma 1 Occurrences starting 09/25/2022 until 10/25/2023[facility] Work Phone: Comment on above:1 Occurrences starting 09/25/2022 until 10/25/2023XR Knee - bilateral 4 [facility]XR Knee - right 4 ViewsPaulding County HospitalXR Pelvis 1 or 2 Views [facility] Immunizations Immunization DateImmunizationNotesCare BlooelndBtghttmo00-75-4716ybrztdxrz, high dose seasonal, preservative-freePeter Rush Other [employer]Mont[employer] Other 11-175986-94-8461psorywewc virus vaccine, split virus (incl. purified surface antigen)Peter Rush Other noJu[employer] Other 11-783582-46-8781oyotynclk virus vaccine, unspecified formulationUltra 2 Work Phone: [facility]10-30-2021influenza virus vaccine, split virus (incl. purified surface antigen)Peter Rush Other noJu[employer] Other 10-696195-96-1331jlferjyqb virus vaccine, unspecified formulationPaulding County Hospital03-12-2021COVID-19 Vaccine Roe - Documentation Purposes OnlyPeter Rush Other [facility]10-01-2017tetanus and diphtheria toxoids, adsorbed, preservative free, for adult use (5 Lf of tetanus toxoid and 2 Lf of diphtheria toxoid)Peter Rush Other [facility]10-21-2016tetanus and diphtheria toxoids, adsorbed, preservative free, for adult use (5 Lf of tetanus toxoid and 2 Lf of diphtheria toxoid)Peter Rush Other [facility] Payers DatePayer CategoryPayerPolicy [id number] [id number] [id number] 2023Medicare [id number] [id number] 2.16.840.1.178793.3.57[id number] 2.16.840.1.979783.3.57[id number] 2.16.840.1.949851.3.57[id number] 2.16.840.1.768023.3.57[id number] 2.16.840.1.382450.3.57[id number] 2.16.840.1.740184.3.57[id number] 2.16.840.1.270025.3.57[id number] 2.16.840.1.523926.3.57[id number] 2..840.1.951923.3.57[id number] 2.16.840.1.891578.3.579.2.196Private Health InsuranceAet Insurance Co [id number] Social History DateTypeDetailFacilityStart: 09-02-2018 End: 75-00-0170Aqt [facility] At [facility]ertart: 08-24-2013 End: 15-73-8735Psnhixt smoking status NHISNever smoked tobaccoPremier Health Start: 62-24-3915Osucatv use and exposureSmokeless tobacco non-userVeterans Health Administrationtart: 48-59-0227Opzgays intakeCurrent drinker of alcohol (finding) [facility] Administrationtart: 19-57-5781Kmwgaou Commentocc.[facility] Administrationtart: 75-58-6943Nge Assigned At BirthFemalMercy Hospitaltart: 09-02-2018 End: 47-65-0168Ogyrchi of Social functionPremier HealthNational Score (1-100), lower number is lower [id number]-Qqhev General Surgery BellevueStart: [id number] identityIdentifies as female gender (finding)[facility] Start: [id number] smoking status NHISEx-smoker (finding)[facility]finding)[facility] Medical Equipment Procedure CodeEquipment CodeEquipment Original TextEquipment IdentifierDates Fkh-Gh-M-Kind Implant - Crushed Cancellous [id number]: 07-19-2016 Comment on above:Description: FKM-YG-E-KIND IMPLANT - Crushed Cancellous 15cc. Brought into room at 0840. Handed sterily to field by Donovan Christensen RN to Abigail Hayes SURFACE LOGGING SYSTEMS LOGGER at 1015. Also handled by Moe Ulrich MD, and Abigail Carey MD. No preparation required.Plate Lcp Long T Stainless Steel 61mm Bone 2 Hole Variable Angle Fusion - [id number]: 12-21-6315Pygfc Lcp 2.7mm T8 Stainless Steel 22mm Bone Variable Angle Lock Self Tap - [id number] Start: 83-26-6068Xaprih Surfix 3.5mm Stainless Steel Orthopedic Lock Midfoot - [id number]: 07-19-2016 Functional Status WttiUyzlkklbncOqxdqjDiaqrhyw99-99-5531Iljtooktmo StatusN/AFisher-[facility] Fnqqmprv55-09-8949Uyixvyvcfa StatusN/AF[facility] [place] Clinical Notes 08-26-2022 to 12-14-2024 Note Date & SsucLatdOsrapfjw88-55-6429 Evaluation note* Diagnosis Onset Date Resolution Status Admit Date Primary osteoarthritis of knees, berry mehta acuteJuly 2024 10:40am [facility] Work Phone: 1(898) 968-237309-03-2024 NoteGeneral Surgery Office/Clinic Note Chief Complaint consultation [...] Date Status SARS-CoV-2 (COVID-19) Ad26 vaccine 08/04/2020 RecordedOhiohealth O'Bleness HospitalComment on above:Result Comment: Electronically Signed By: ABDULAZIZ WILSON, Cristian Doshi\Date and Time Signed: 01/27/24 16:18 [id number] Instructions* Patient Instructions* Yolanda Gutierrez MD - [...] If you do not have a responsible intermodal owner operator truck driver (family member or friend) with [...] If you do not have a responsible intermodal owner operator truck driver (family member or friend) withyou to take you home, your exam cannot be done with sedation and will be cancelled. Please bring a list of all of your current medications, including any Mdkm-dsk-Mnuskrj medications with you. Medications If you take [...] your exam. 2 04/2019 documented in this encounterPrem[facility] Health05-03-2023 History and physical note * Yolanda Gutierrez MD - 09/25/2022 2:03 PM EDT Hepatology [facility] consult by Dr Rush for liver lesions [...] MD cc dr Rush documented in this encounterPremier Health04-08-2023 Evaluation note* Encounter Date Diagnosis Assessment Notes Treatment Notes Treatment Clinical Notes Aug, Menopause (ICD-10 - Z78.0) [facility] Other 04-03-2023 Evaluation note* Encounter Date Diagnosis [...] and consequences of not detecting early cancer [facility] [employer] Other Evaluation + Plan note No data available for this section [facility] [place] Evaluation note* Diagnosis Polyp of colon, unspecified part of colon, unspecified type- Primary Liver hemangioma Hemangioma of intra-abdominal structures documented in this encounter [facility]* Diagnosis Polyp of colon, unspecified part of colon, unspecified type Liver hemangioma Hemangioma of intra-abdominal structures documented in this encounter [facility] noteNo InformationNortConemaugh Meyersdale Medical [facility] [employer] Other Evaluation note* Diagnosis Onset Date Resolution Status Cavernous hemangioma of liver acuteKnee pain, bilateralacuteMenopauseacuteObesityacuteScreening for colon canceracuteMedicare annual wellness visit, initialnoneactiveScreening mammogram for breast cancernoneactive [facility] Work Phone: Evaluation noteNo assessment information available [facility] Work Phone: History general Narrative - Reported* Type Description Date Medical History frequent UTI Medical HistoryhysterectomyMedical HistoryAtrophic vaginitisMedical History History of nephrolithiasisMedical HistorySalmonella gastroenteritisMedical HistoryDiarrheaMedical HistoryCavernous hemangioma of liverSurgical History hysterectomySurgical Historybilateral foot surgeriesSurgical HistoryCYSTOSCOPY 2013Surgical RukoxcgYCJBHVRODQ7172Jynfuqarrzzjnwh Historyhysterectomy Hospitalization Historyc section, childbirth [facility] Other Hospital Discharge instructions No data available for this section [facility] Surgery [place] Progress note No data available for this section [facility] Reason for referral (narrative)* Outpatient Procedure (Routine) - AuthorizedSpecialtyDiagnoses / ProceduresReferred By Contact Referred To [facility] DISEASE [place] Diagnoses Polyp of colon, unspecified part of colon, unspecified type Liver hemangioma Procedures COLONOSCOPY DIAGNOSTIC COLONOSCOPY FLX DX W/COLLJ SPEC WHEN PFRMD Yolanda Stafford MD [address] [place] [address] Digestive Disease [facility] [place] [address] Referral IDStatusReasonStart DateExpiration DateVisits RequestedVisits [id number] Auto-Generated Referral * Diagnostic Procedure Only (Routine) - AuthorizedSpecialtyDiagnoses / ProceduresReferred By ContactReferred To [facility] Diagnoses Polyp of colon, unspecified part of colon, unspecified type Liver hemangioma Procedures US ABD RIGHT UPPER QUADRANT US ABDOMINAL REAL TIME W/IMAGE LIMITED Yolanda Stafford MD [address] [place] [address] [facility] Referral IDStatusReasonStart DateExpiration DateVisits RequestedVisits [id number] Auto-Generated Referral [facility] for referral (narrative)* Diagnostic Procedure Only (Routine) - ClosedSpecialtyDiagnoses / ProceduresReferred By ContactReferred To [facility] Diagnoses Polyp of colon, unspecified part of colon, unspecified type Liver hemangioma Procedures US ABD RIGHT UPPER QUADRANT US ABDOMINAL REAL TIME W/IMAGE LIMITED Yolanda Stafford MD [address] [place] [address] [facility] [place] [address] Referral IDStatusReasonStwrightsville beach DateExpiration DateVisits RequestedVisits [id number] Auto-Generated Referral / [facility] for referral (narrative)No reason for referral information availableOhio [facility]ing [facility] Work Phone: [facility] Narrative* Diagnostic Procedure Only (Routine) - ClosedSpecialtyDiagnoses / ProceduresReferred By ContactReferred To [facility] Diagnoses Polyp of colon, unspecified part of colon, unspecified type Liver hemangioma Procedures US ABD RIGHT UPPER QUADRANT US ABDOMINAL REAL TIME W/IMAGE LIMITED Yolanda Stafford MD [address] [place] [address] [facility] [place] [address] Referral IDStatusReasonStart DateExpiration DateVisits RequestedVisits [id number] Auto-Generated Referral [facility] Summary Purpose Family History Relationship Condition Age [...] breast cancer Chief Complaint Admit Date NEW AYLSSIA KNEE PAIN NX December 14, 2024 10: 40am Chief Complaint Admit Date NEW ALYSSIA KNEE PAIN NX December 14, 2024 10: 40am 6 WEEKS January 26, 2025 9:18am Reason for Visit Admit Date Primary osteoarthritis of knees, bilater al December 14, 2024 10:40am Additional Source Comments INFORMATION SOURCE (unrecogn ized section and content) DATE CREATED AUTHOR 01/17/2022 [facility] DATE CREATED AUTHOR AUTHOR'S ORGANIZ ATION 09/27/2022 [facility] DATE CREATED AUTHOR AUTHOR'S ORGANIZ ATION 10/04/2022 [facility] DATE CREATED AUTHOR AUTHOR'S ORGANIZ ATION 03/26/2024 [facility] DATE CREATED AUTHOR AUTHOR'S ORGANIZ ATION 12/25/2024 [facility] REASON FOR VISIT (unrecogniz ed section and content) ReasonCommentsNew Patient Source Comments (unrecognize d section and content) In the event this informatio n is protected by the Federal Confidentiality of Alcohol and Drug Abuse Patient Records regulations: The Federal rules restrict any use of the information to criminally investigate or prosecute any alcohol or drug abuse patient.[facility] HealthIn the event this information is protected by the Federal Confidentiality of Alcohol and Drug Abuse Patient Records regulations: The Federal rules restrict any use of the information to criminally investigate or prosecute any alcohol or drug abuse patient.[facility] Care Teams (unrecognized sec tion and content) Team MemberRelationshipSpecialtyStart DateEnd Date Peter Rush DO PCP - [facility]09/11/12Team MemberRelationshipSpecialtyStart Date End Date Peter Rush DO PCP - [facility]09/11/12 Team Status: Active Member Role Status Dates [...] BE BASED ON THE PRIMARY CLINICAL RECORDS. [facility] [employer] [facility]. provides no warranty or guarantee of the accuracy or completeness of information in this document.
== END 2025-04-19 10:10 | disposition home or self-care (01) ==
LOC: RAD 10:11
PROVIDERS: PCP Internal Medicine; Visit Provider Podiatrist Foot & Ankle Surgery
DX: M13.872 Other specified arthritis, left ankle and foot (principal); Z98.890 Other specified postprocedural states
CPT/HCPCS: 73630